=== PATIENT | male | born 1935 ===

== ENCOUNTER 2018-01-10 11:05 | Emergency (ER) | payer MEDICARE, MEDICAID ==
[2018-01-10 11:09] VITALS: BMI 24.4
[2018-01-10 12:51] LABS: BASO # 0.1 K/uL (0.0-0.2); BASO % 0.7 % (0.0-2.0); EOS # 0.1 K/uL (0.0-0.7); EOS % 1.7 % (0.0-4.0); HEMOGLOBIN 11.3 g/dL (12.0-18.0); LYMPH % 11.6 % (20.0-40.0); MEAN CELL VOLUME 85.6 fl (80.0-94.0); MEAN CORPUSCULAR HEMOGLOBIN 28.4 pg (27.0-31.0); MEAN CORPUSCULAR HGB CONC 33.2 g/dL (33.0-37.0); MEAN PLATELET VOLUME 9.2 fl (7.2-11.7); MONO # 0.7 K/uL (0.0-0.8); MONO % 8.4 % (0.0-10.0); NEUT # 6.5 K/uL (1.8-7.0); NEUT % 77.6 % (50.0-75.0); RBC 3.97 Mil/uL (4.40-5.90); RED CELL DISTRIBUTION WIDTH 14.5 % (11.5-14.5); WHITE BLOOD COUNT 8.3 K/uL (4.8-10.8)
--- NOTE | 2018-01-10 13:08 | ED PDOC ---
HPI: General Adult <Belkys Ribeiro - Last Filed: 01/11/18 09:50> History Per: Patient, Other ([facility] report) Additional Complaint(s): Pt. states today at 0430 he was sleeping a nurse came into his room which startled him causing him to roll out of bed. States that his bed rail on the R side was not up. States he fell down and struck his forehead. States he attempted get up on his own but slipped and fell down again but did not injure himself. Denies LOC, N/V, abdominal pain, chest pain, SOB, neck pain, extremity pain, back pain (contrary to triage note). <Jose Butcher - Last Filed: 01/12/18 12:03> Time Seen by Provider: 01/10/18 11:57 Chief Complaint (Nursing): Trauma Past Medical History Vital Signs: Last Vital Signs Temp 98.7 F 01/10/18 17:30 Pulse 68 01/10/18 17:30 Resp 18 01/10/18 17:30 BP 156/86 H 01/10/18 17:30 Pulse Ox 98 01/10/18 17:30 <Belkys Ribeiro - Last Filed: 01/11/18 09:50> Vital Signs: Last Vital Signs Temp 96.4 F L 01/10/18 11:10 Pulse 76 01/10/18 11:10 Resp 17 01/10/18 11:10 BP 160/80 H 01/10/18 11:10 Pulse Ox 99 01/10/18 11:10 - Medical History PMH: Dementia, HTN - Surgical History Surgical History: No Surg Hx - Family History Family History: States: No Known Family Hx <Jose Butcher - Last Filed: 01/12/18 12:03> - Allergies Allergies/Adverse Reactions: Allergies Allergy/AdvReac Type Severity Reaction Status Date / Time levofloxacin [From Levaquin] Allergy RASH Verified 01/10/18 11:16 Penicillins Allergy RASH Verified 01/10/18 11:16 Review of Systems ROS Statement: Except As Marked, All Systems Reviewed And Found Negative Neurological: Positive for: Headache <Jose Butcher - Last Filed: 01/12/18 12:03> Physical Exam - Reviewed Nursing Documentation Reviewed: Yes Vital Signs Reviewed: Yes - Physical Exam Appears: Positive for: Well, Non-toxic, No Acute Distress Head Exam: Positive for: ATRAUMATIC, NORMAL INSPECTION, NORMOCEPHALIC Skin: Positive for: Normal Color, Warm. Negative for: Rash Eye Exam: Positive for: EOMI, Normal appearance, PERRL ENT: Positive for: Normal ENT Inspection Neck: Positive for: Normal, Painless ROM Cardiovascular/Chest: Positive for: Regular Rate, Rhythm, Chest Non Tender Respiratory: Positive for: Normal Breath Sounds. Negative for: Respiratory Distress Gastrointestinal/Abdominal: Positive for: Normal Exam, Soft, Other (no ecchymosis). Negative for: Tenderness Back: Positive for: Normal Inspection. Negative for: L CVA Tenderness, R CVA Tenderness, Vertebral Tenderness Extremity: Positive for: Normal ROM Neurologic/Psych: Positive for: Alert, Oriented (x3). Negative for: Aphasia, Facial Droop <Jose Butcher - Last Filed: 01/12/18 12:03> - Laboratory Results Result Diagrams: 01/10/18 12:40 01/10/18 15:00 <Belkys Ribeiro - Last Filed: 01/11/18 09:50> - Laboratory Results Result Diagrams: 01/10/18 12:40 01/10/18 15:00 - ECG ECG: Positive for: Interpreted By Me ECG Rhythm: Positive for: Sinus Rhythm. Negative for: ST/T Changes Rate: 68 O2 Sat by Pulse Oximetry: 99 - Progress ED Course And Treament: Labs, CT head/cervical w/o contrast, CXR, EKG ordered. CT head/cervical w/o contrast: negative. On re-evaluation, pt. seen sitting up comfortably eating. Informed of results. <Jose Butcher - Last Filed: 01/12/18 12:03> Disposition <Belkys Ribeiro - Last Filed: 01/11/18 09:50> - Patient ED Disposition Is Patient to be Admitted: No - Disposition Disposition: Skilled Nursing Care Hospital Disposition Time: 15:52 <Jose Butcher - Last Filed: 01/12/18 12:03> - Clinical Impression Clinical Impression: Head injury, Fall - Disposition Condition: STABLE Additional Instructions: AZEB HART, thank you for letting us take care of you today. Your provider was Belkys Ribeiro MD and you were treated for FALL/HEAD PAIN. The emergency medical care you received today was directed at your acute symptoms. If you were prescribed any medication, please fill it and take as directed. It may take several days for your symptoms to resolve. Return to the Emergency Department if your symptoms worsen, do not improve, or if you have any other problems. Please contact your doctor or call one of the physicians/clinics you have been referred to that are listed on the Patient Visit Information form that is included in your discharge packet. Bring any paperwork you were given at discharge with you along with any medications you are taking to your follow up visit. Our treatment cannot replace ongoing medical care by a primary care provider outside of the emergency department. Thank you for allowing the [facility] team to be part of your care today. If you had an X-Ray or CT scan: A Radiologist will review the ED reading if any change in treatment is needed we will contact you. If you had a blood, urine, or wound culture: It will take several days for the results, if any change in treatment is needed we will contact you. If you had an STI test: It will take 48 hours for the results. Please call after 1 week if you have not heard back. Instructions: Closed Head Injury (DC) Forms: [employer] (Micronesian) Print Language: LUXEMBOURGISH Addendum Addendum: 01/11/18 09:49 Reviewed PA chart. Agree with assessment and plan. <Belkys Ribeiro - Last Filed: 01/11/18 09:50>
[2018-01-10 13:12] VITALS: PULSE 68
[2018-01-10 13:28] LABS: ALB/GLOB RATIO 1.2 (1.0-2.1); ALBUMIN 4.6 g/dL (3.5-5.0); ALT/SGPT 9 U/L (21-72); AST/SGOT 67 U/L (17-59); BLOOD UREA NITROGEN 31 mg/dl (9-20); CALCIUM 9.2 mg/dL (8.4-10.2); GFR NON-AFRICAN AMERICAN > 60
--- NOTE | 2018-01-10 14:36 | CT ---
Date of service: 01/10/2018 PROCEDURE: CT HEAD WITHOUT CONTRAST. HISTORY: trauma COMPARISON: None available. TECHNIQUE: Axial computed tomography images were obtained through the head/brain without intravenous contrast. Radiation dose: Total exam DLP = 932.7 mGy-cm. This CT exam was performed using one or more of the following dose reduction techniques: Automated exposure control, adjustment of the mA and/or kV according to patient size, and/or use of iterative reconstruction technique. FINDINGS: HEMORRHAGE: No intracranial hemorrhage. BRAIN: No mass effect or edema. Mild atrophy and moderate chronic microvascular white matter ischemic disease are noted. VENTRICLES: Unremarkable. No hydrocephalus. CALVARIUM: Unremarkable. PARANASAL SINUSES: Unremarkable as visualized. No significant inflammatory changes. MASTOID AIR CELLS: Unremarkable as visualized. No inflammatory changes. OTHER FINDINGS: None. IMPRESSION: No evidence of acute intracranial hemorrhage mass effect or midline shift. Atrophy and chronic microvascular white matter ischemic disease.
--- NOTE | 2018-01-10 15:34 | CT ---
Date of service: 01/10/2018 PROCEDURE: CT Cervical Spine without contrast HISTORY: trauma COMPARISON: No prior similar study available for comparison TECHNIQUE: Axial computed tomography images were obtained of the cervical spine without the use of intravenous contrast. Coronal and sagittal reformatted images were created and reviewed. Radiation dose: Total exam DLP = 358.6 mGy-cm. This CT exam was performed using one or more of the following dose reduction techniques: Automated exposure control, adjustment of the mA and/or kV according to patient size, and/or use of iterative reconstruction technique. FINDINGS: VERTEBRAE: No fracture. There is mild 3 millimeter anterior spondylolisthesis of C4 relative to C5 likely due to severe degenerative changes. No destructive bony lesion. DISCS/SPINAL CANAL/NEURAL FORAMINA: Moderate to severe narrowing of the intervertebral disc is space at C5-C6 and moderate narrowing of disc is space at C6-C7. Moderate to severe degenerative changes and multilevel small posterior osteophyte disc bulge complex noted associated with mild spinal stenosis. 2 millimeter anterior spondylolisthesis of C7 relative to T1 noted. PARASPINAL SOFT TISSUES: No evidence of hematoma or fluid collection in the paraspinal region. The thyroid gland is heterogeneous and enlarged. OTHER FINDINGS: There is partially image moderately to markedly distended esophagus noted. The upper airway is patent. IMPRESSION: No definite CT evidence of acute displaced fracture. Mild anterior spondylolisthesis of C4 relative to C5 and C7 relative to T1 noted likely due to severe degenerative and arthritic changes. Moderate to mildly severe multilevel endplate and disc degenerative changes. Partially imaged moderately to markedly distended esophagus noted. Correlate clinically for possible prior gastric pull-up surgery.
[2018-01-10 15:46] LABS: BLOOD UREA NITROGEN 28 mg/dl (9-20); CALCIUM 9.5 mg/dL (8.4-10.2); GFR NON-AFRICAN AMERICAN > 60
[2018-01-10 15:47] LABS: ALB/GLOB RATIO 1.2 (1.0-2.1); ALT/SGPT 26 U/L (21-72); AST/SGOT 25 U/L (17-59)
--- NOTE | 2018-01-10 16:55 | CARD ---
APPROVED REPORT Date of service: 01/10/2018 EKG Measurement Heart [id number] <Conclusion> Sinus rhythm with premature atrial complexes Otherwise normal ECG
[2018-01-10 17:31] VITALS: BP 156/86; RESP 18; TEMP 98.7
--- NOTE | 2018-01-10 17:50 | RAD ---
Date of service: 01/10/2018 HISTORY: fall COMPARISON: No prior. FINDINGS: LUNGS: No active pulmonary disease. Linear shaped lucency at the peripheral left chest likely represent skin fold. PLEURA: No significant pleural effusion identified, no pneumothorax apparent. CARDIOVASCULAR: Normal. OSSEOUS STRUCTURES: No significant abnormalities. VISUALIZED UPPER ABDOMEN: Normal. OTHER FINDINGS: None. IMPRESSION: Lucency in the peripheral left chest likely represent skin folds. No evidence of acute pulmonary disease.
[2018-01-12 12:03] VITALS: O2SAT 99
== END 2018-01-10 17:32 ==
LOC: H.ER 11:05
DX: S09.90XA Unspecified injury of head, initial encounter (principal); W06.XXXA Fall from bed, initial encounter; Y92.230 Patient room in hospital as the place of occurrence of the external cause; F03.90 Unspecified dementia, unspecified severity, without behavioral disturbance, psychotic disturbance, mood disturbance, and anxiety; I10 Essential (primary) hypertension; I49.1 Atrial premature depolarization

== ENCOUNTER 2018-05-12 07:31 | Inpatient (IN) | payer MEDICARE, MEDICAID ==
[2018-05-12 07:34] VITALS: BMI 25.1
[2018-05-12] MEDS ORDERED: Gentamicin 80 mg/2mL Inj. IVPB STA (08:14)
[2018-05-12] MEDS ORDERED: Sodium Chloride 0.9% 1,000 ML IV SCH (08:15)
[2018-05-12] MEDS ORDERED: Vancomycin 1 g Inj ONE (08:30)
--- NOTE | 2018-05-12 08:33 | ED PDOC ---
HPI: General Adult Time Seen by Provider: 05/12/18 07:48 Chief Complaint (Nursing): Fever Chief Complaint (Provider): Fever History Per: EMS History/Exam Limitations: other (patient is non-verbal ) Onset/Duration Of Symptoms: Hrs Current Symptoms Are (Timing): Still Present Additional Complaint(s): Chris Hickey is an 82 year old male with a past medical history of diet controlled diabetes, hypertension, dementia, and obstructive neuropathy who was brought to the ED by EMS from [facility] for evaluation of fever. Patient is non-verbal at baseline and chart review shows that patient had a temperature of 102 at 6 am and was given Tylenol. His oxygen saturation n on room air was 88-90 and patient was reported to appear more lethargic and congested. Of note, patient is allergic to Levaquin. PMD: Dr. Hernández Past Medical History Reviewed: Historical Data, Nursing Documentation, Vital Signs Vital Signs: Last Vital Signs Temp 98.8 F 05/12/18 07:35 Pulse 58 L 05/12/18 07:35 Resp 17 05/12/18 07:35 BP 91/41 L 05/12/18 07:35 Pulse Ox 98 05/12/18 07:40 - Medical History PMH: Dementia, Diabetes, HTN Other PMH: obstructive neuropathy - Surgical History Surgical History: No Surg Hx - Family History Family History: States: Unknown Family Hx - Social History Current smoker - smoking cessation education provided: No Alcohol: None Drugs: Denies - Home Medications Home Medications: Ambulatory Orders Medication Instructions Recorded Acetaminophen [Tylenol 325mg tab] 650 mg PO DAILY 05/12/18 Acetaminophen [Tylenol 325mg tab] 650 mg PO Q4 PRN 05/12/18 Acetaminophen [Tylenol 325mg tab] 650 mg PO Q6 PRN 05/12/18 Albuterol/Ipratropium [Duoneb 3 3 ml IH Q8 05/12/18 mg/0.5 mg (3 ml) UD] Alendronate [Fosamax] 70 mg PO FR 05/12/18 Azithromycin [Zithromax] 250 mg PO DAILY 05/12/18 Benzocaine/Menthol [Sore Throat 1 anette PO Q8 PRN 05/12/18 Lozenge] Bisacodyl [Dulcolax] 10 mg AL DAILY PRN 05/12/18 Calcium Carbonate [Oscal] 500 mg PO BID 05/12/18 Cholecalciferol [Vitamin D 1000 IU] 1,000 unit PO BID 05/12/18 Dextromethorphan HBr/Quinidine 1 cap PO DAILY 05/12/18 [Nuedexta 20-10 mg Capsule] Donepezil HCl [Aricept] 5 mg PO HS 05/12/18 Fluticasone Nasal [Flonase] 2 spray ASAD DAILY 05/12/18 Levocetirizine Dihydrochloride 5 mg PO DAILY 05/12/18 [Xyzal] Lisinopril [Zestril] 5 mg PO HS 05/12/18 Magnesium Hydroxide [Milk Of 30 ml PO HS PRN 05/12/18 Magnesia] Memantine [Namenda] 5 mg PO Q12 05/12/18 Multivitamin [Multi-Vitamin Daily] 1 tab PO DAILY 05/12/18 [id number] Ethyl Esters 1 GM 2 gm PO Q12 05/12/18 [Lovaza] Pantoprazole Sodium [Protonix] 40 mg PO DAILY 05/12/18 Peg 400/Hypromellose/Glycerin 2 drop EACHEYE Q6 05/12/18 [Visine Tears Drops] Sennosides [Senna] 8.6 mg PO HS 05/12/18 Tamsulosin [Flomax] 0.4 mg PO QPM 05/12/18 guaiFENesin [Robitussin] 10 ml PO Q6 PRN 05/12/18 - Allergies Allergies/Adverse Reactions: Allergies Allergy/AdvReac Type Severity Reaction Status Date / Time levofloxacin [From Levaquin] Allergy RASH Verified 05/12/18 07:39 Penicillins Allergy RASH Verified 05/12/18 07:39 Review of Systems ROS Statement: Except As Marked, All Systems Reviewed And Found Negative Constitutional: Positive for: Fever Physical Exam - Reviewed Nursing Documentation Reviewed: Yes Vital Signs Reviewed: Yes - Physical Exam Appears: Positive for: Non-toxic, No Acute Distress Head Exam: Positive for: ATRAUMATIC, NORMAL INSPECTION, NORMOCEPHALIC Skin: Positive for: Normal Color, Warm, DRY Eye Exam: Positive for: Normal appearance (Left eye is deviated laterally ). Negative for: Scleral icterus ENT: Positive for: Other (mucosa dry, dry lips, dry tongue ) Cardiovascular/Chest: Positive for: Regular Rate, Rhythm. Negative for: Murmur Respiratory: Positive for: Normal Breath Sounds (good air entry bilaterally ). Negative for: Wheezing Gastrointestinal/Abdominal: Positive for: Normal Exam, Soft. Negative for: Tenderness Extremity: Positive for: Normal ROM, Other (decubitus ulcer to lower extremity ). Negative for: Deformity, Swelling Neurologic/Psych: Negative for: Motor/Sensory Deficits - Laboratory Results Result Diagrams: 05/12/18 07:50 05/12/18 07:50 - ECG O2 Sat by Pulse Oximetry: 98 (RA) Pulse Ox Interpretation: Normal Medical Decision Making Medical Decision Making: Time: 8:21 Impression: fever, lethargy, r/o sepsis, pneumonia, UTI Plan: --VBG --EKG --CMP --Magnesium --Phosphorous --CBC --Coags --Chest x-ray --Glucose, POC --Gentamicin 310 IVPB --IV Fluids --Vancomycin 1 gm IVPB --Blood Culture --Urine Culture --Urinalysis ----- Scribe Attestation: Documented by Carlita Hewitt, acting as a scribe for Karen Bajwa MD. Provider Scribe Attestation: All medical record entries made by the Scribe were at my direction and personally dictated by me. I have reviewed the chart and agree that the record accurately reflects my personal performance of the history, physical exam, medical decision making, and the department course for this patient. I have also personally directed, reviewed, and agree with the discharge instructions and dis position. Disposition - Clinical Impression Clinical Impression: UTI (urinary tract infection), Sepsis syndrome - Patient ED Disposition Is Patient to be Admitted: Yes Doctor Will See Patient In The: Hospital - Disposition Disposition: Transfer of Care Disposition Time: 10:30 Condition: STABLE Instructions: Urinary Tract Infection, Adult (DC) Forms: [email or web address] (Serbian) - Pt Status Changed To: Hospital Disposition Of: Inpatient - Admit Certification Admit to Inpatient:: After my assessment, the patient will require hospitalization for at least two midnights. This is because of the severity of symptoms shown, intensity of services needed, and/or the medical risk in this patient being treated as an outpatient. - POA Present On Arrival: None
[2018-05-12 08:36] LABS: VENOUS BLOOD GAS BASE EXCESS 7.5 mmol/L (0.0-2.0); VENOUS BLOOD GAS PCO2 47 mmHg (40-60); VENOUS BLOOD GAS PO2 37 mm/Hg (30-55); VENOUS BLOOD PH 7.45 (7.32-7.43)
[2018-05-12 08:45] LABS: BASO % 0.1 % (0.0-2.0); HEMOGLOBIN 10.2 g/dL (12.0-18.0); LYMPH # 0.3 K/uL (1.0-4.3); LYMPH % 3.4 % (20.0-40.0); MEAN CELL VOLUME 83.5 fl (80.0-94.0); MEAN CORPUSCULAR HGB CONC 33.6 g/dL (33.0-37.0); MEAN PLATELET VOLUME 8.7 fl (7.2-11.7); MONO # 0.7 K/uL (0.0-0.8); MONO % 7.4 % (0.0-10.0); NEUT # 8.7 K/uL (1.8-7.0); NEUT % 89.1 % (50.0-75.0); PLATELET COUNT 220 K/uL (130-400); RBC 3.65 Mil/uL (4.40-5.90); RED CELL DISTRIBUTION WIDTH 15.3 % (11.5-14.5); WHITE BLOOD COUNT 9.8 K/uL (4.8-10.8)
[2018-05-12] MEDS ORDERED: GENTAMICIN IVPB ONE (08:45)
[2018-05-12] MEDS ORDERED: SODIUM CHLORIDE 0.9% IVPB ONE (08:45)
[2018-05-12 09:00] LABS: ALB/GLOB RATIO 1.2 (1.0-2.1); ALBUMIN 3.9 g/dL (3.5-5.0); ALT/SGPT 41 U/L (21-72); AST/SGOT 63 U/L (17-59); BLOOD UREA NITROGEN 33 mg/dl (9-20); CALCIUM 9.5 mg/dL (8.4-10.2); GFR NON-AFRICAN AMERICAN 53
[2018-05-12 09:20] LABS: INR 1.4; PROTHROMBIN TIME 15.7 Seconds (9.8-13.1)
[2018-05-12 09:23] LABS: PARTIAL THROMBOPLASTIN TIME 34.4 Seconds (25.6-37.1)
[2018-05-12 09:50] LABS: SQUAMOUS EPITHIAL 3 /hpf (0-5); URINE AMORPHOUS SEDIMENT FEW /ul (<OCC); URINE BACTERIA FEW (<OCC); URINE BILIRUBIN NEGATIVE (NEGATIVE); URINE BLOOD MODERATE (NEGATIVE); URINE CLARITY TURBID (Clear); URINE COLOR YELLOW (YELLOW); URINE GLUCOSE (UA) NEG (NEGATIVE); URINE LEUKOCYTE ESTERASE LARGE Leu/uL (Negative); URINE PROTEIN 100 mg/dL (NEGATIVE); URINE UROBILINOGEN 0.2-1.0 mg/dL (0.2-1.0); WBC CLUMPS MANY /hpf
--- NOTE | 2018-05-12 09:55 | CARD ---
APPROVED REPORT Date of service: 05/12/2018 EKG Measurement Heart [id number] <Conclusion> Sinus rhythm with marked sinus arrhythmia Prolonged QT Abnormal ECG
[2018-05-12 09:56] LABS: BANDS 5 % (0-2); LYMPHOCYTE 4 % (20-50); MONOCYTE 4 % (0-10); NEUTROPHIL 87 % (42-75); TOTAL CELLS COUNTED 100
[2018-05-12 09:57] LABS: PLATELET ESTIMATE NORMAL (NORMAL)
[2018-05-12 09:58] LABS: ANISOCYTOSIS SLIGHT; HYPOCHROMIC SLIGHT; OVALOCYTES SLIGHT; TEARDROP CELLS SLIGHT; TOXIC GRANULATION PRESENT
--- NOTE | 2018-05-12 10:34 | RAD ---
Date of service: 05/12/2018 HISTORY: Sepsis Patient COMPARISON: 01/10/2018 FINDINGS: LUNGS: No active pulmonary disease. PLEURA: No significant pleural effusion identified, no pneumothorax apparent. CARDIOVASCULAR: There is presence of aortic atherosclerotic calcification on x-ray. Probable top-normal heart size no pulmonary vascular congestion. OSSEOUS STRUCTURES: Thoracic spondylosis. Bilateral shoulder arthrosis. VISUALIZED UPPER ABDOMEN: Normal. OTHER FINDINGS: None. IMPRESSION: No acute cardiopulmonary pathology appreciated. Other findings as above.
[2018-05-12] MEDS ORDERED: guaiFENesin 100 mg/5 ml Syrup UD PO PRN (13:57)
--- NOTE | 2018-05-12 14:41 | PCM.RRT ---
- Constitutional Appears: Non-toxic Additional Comments: patient noted to be at his baseline as per nurse (nonverbal, bedbound) - Head Head Exam: ATRAUMATIC - Eyes Additional Comments: eyes were closed - Respiratory Exam Respiratory Exam: Clear to Ausculation Bilateral. absent: Rhonchi, Wheezes, Respiratory Distress - Cardiovascular Exam Cardiovascular Exam: REGULAR RHYTHM, +S1, +S2 - GI/Abdominal Exam GI & Abdominal Exam: Soft, Normal Bowel Sounds. absent: Guarding, Rigid, Tenderness - Neurological Exam Additional exam: patient nonverbal, bedbound - Extremities Exam Extremities Exam: absent: Calf Tenderness, Pedal Edema Plan - Assessment of Findings&Treatment Plan [employer] called: 1:19pm [employer] called by nurse bc of low spo2 [employer] response time: 1 minute [employer] called on 82 y/o M (nonverbal, bedbound) who's initial vitals on medsurg were noted to be spo2 82% while on non-rebreather and HR of 43bpm. Patient was sent from [facility] for evaluation of lethargy. Initial VS: BP-96/50, 02 sat of 100% p-86 bpm Repeat VS showed 02 sat of 100% on nonrebreather with p-84 bpm BP- 96/50 A/P: 82 y/o M (nonverbal, bedbound) who's initial vitals on medsurg were noted to be spo2 82% while on non-rebreather and HR of 43bpm. Patient was sent from [facility] for evaluation of lethargy & found to have UTI. -Patient noted to be at his baseline. -VS were repeated & error in machine was noted bc repeat 02 sat showed 100% on nonrebreather with p-84 bpm -UTI noted on UA in ED with large leukocytes. -Patient s/p 1 dose of vanco & genta
[2018-05-12] MEDS ORDERED: guaiFENesin 200 mg/10 ml Syrup UD PO PRN (14:45)
[2018-05-12] MEDS: Albuterol-Ipratrop 3 mg / 0.5 (3 ml) UD IH SCH (15:35)
--- NOTE | 2018-05-12 16:35 | CP.PCM.CON ---
History of Present Illness - History of Present Illness History of Present Illness: Infectious Diseae Consultation Note- ASked to see this patient at the request of for UTI HPI- History obtained from the nurse and FAMILY AND MARRIAGE COUNSELLOR and medical chart as patient is mostly nonverbal. Patient is a 82 year old male admitted from [place] for evaluation OF fever. he has PMH of dementia, HTN, diet controlled DM II admitted with fever and also found to be hypoxemic and now found to have positive UA as well. I;m asked to help with antibiotic management and evaluation of the fever. as per nurse pt. had VEGETABLE VENDOR earlier today because of lethargy and hypoxemia and is currently on FM for oxygen. He is lethargic but when his name is called he does respond and can follow simple commands. Review of Systems - Review of Systems Review of Systems: ROS- can't obtain as pt. does not answer questions Past Patient History - Past Social History Alcohol: None Drugs: Denies Home Situation {Lives}: Longterm - CARDIAC Hx Hypertension: Yes - NEUROLOGICAL Hx Dementia: Yes - ENDOCRINE/METABOLIC Hx Endocrine Disorders: Yes - MUSCULOSKELETAL/RHEUMATOLOGICAL Hx Back Pain: Yes - GENITOURINARY/GYNECOLOGICAL Hx Urinary Tract Infection: Yes Other/Comment: Obstructive uropathy - PSYCHIATRIC Hx Psychophysiologic Disorder: Yes Meds Allergies/Adverse Reactions: Allergies Allergy/AdvReac Type Severity Reaction Status Date / Time levofloxacin [From Levaquin] Allergy RASH Verified 05/12/18 07:39 Penicillins Allergy RASH Verified 05/12/18 07:39 - Medications Medications: Current Medications Acetaminophen (Tylenol 325mg Tab) 650 mg PO Q6 PRN PRN Reason: Fever >100.4 F Acetaminophen (Tylenol 325mg Tab) 650 mg PO Q4 PRN PRN Reason: Temp >101 Acetaminophen (Tylenol 325mg Tab) 650 mg PO Q6 PRN PRN Reason: Pain, Mild (1-3) Albuterol/Ipratropium (Duoneb 3 Mg/0.5 Mg (3 Ml) Ud) 3 ml IH RQ8 KEN Last Admin: 05/12/18 15:35 Dose: 3 ml Alendronate Sodium (Fosamax) 70 mg PO FR KEN Bisacodyl (Dulcolax) 10 mg AK DAILY PRN PRN Reason: No bowel movement after 3 days Calcium Carbonate (Oscal) 500 mg PO BID KEN Cholecalciferol (Vitamin D) 1,000 intlu PO BID KEN Donepezil HCl (Aricept) 5 mg PO HS [facility] Fluticasone Propionate (Flonase) 2 spr ASAD DAILY [facility] Guaifenesin (Robitussin) 200 mg PO Q6 PRN PRN Reason: Cough Sodium Chloride (Sodium Chloride 0.9%) 1,000 mls @ 90 mls/hr IV .Q11H7M [facility] Stop: 05/13/18 14:09 Gentamicin Sulfate 80 mg/ (Sodium Chloride) 102 mls @ 100 mls/hr IVPB Q24H KEN; Protocol Vancomycin HCl 500 mg/ Sodium (Chloride) 250 mls @ 250 mls/hr IVPB Q12H KEN; Protocol Lisinopril (Zestril) 5 mg PO HS [facility] Loratadine (Claritin) 10 mg PO DAILY KEN Memantine (Namenda) 5 mg PO Q12 [facility] Eyoht-3-Gnti Ethyl Esters (Lovaza) 2 gm PO Q12 [facility] Pantoprazole Sodium (Protonix Ec Tab) 40 mg PO DAILY [facility] Sennosides (Senokot Tab) 8.6 mg PO HS [facility] Tamsulosin HCl (Flomax) 0.4 mg PO QPM [facility] Physical Exam - Constitutional Appears: No Acute Distress - Head Exam Head Exam: ATRAUMATIC - Eye Exam Eye Exam: EOMI - ENT Exam Additional comments: dry oropharynx, has FM for oxygenation ( mouth breather) - Neck Exam Neck exam: Positive for: Full Rom - Respiratory Exam Additional comments: no wheezing no crackles slightly tachypneic - Cardiovascular Exam Cardiovascular Exam: RRR, +S1, +S2 - GI/Abdominal Exam GI & Abdominal Exam: Normal Bowel Sounds, Soft Additional comments: NT, ND - Extremities Exam Extremities exam: Positive for: normal inspection - Neurological Exam Additional comments: awake and follows some simple commands \has dementia, nonverbal Results - Vital Signs Recent Vital Signs: Last Vital Signs Temp 98.5 F 05/12/18 09:48 Pulse 65 05/12/18 15:36 Resp 16 05/12/18 09:48 BP 122/60 05/12/18 09:48 Pulse Ox 98 05/12/18 10:55 - Labs Result Diagrams: 05/12/18 07:50 05/12/18 07:50 Labs: Laboratory Results - last 24 hr 05/12/18 05/12/18 05/12/18 07:43 07:50 07:50 WBC 9.8 RBC 3.65 L Hgb 10.2 L Hct 30.4 L MCV 83.5 D MCH 28.0 MCHC 33.6 RDW 15.3 H Plt Count 220 MPV 8.7 Neut % (Auto) 89.1 H Lymph % (Auto) 3.4 L Mason % (Auto) 7.4 Eos % (Auto) 0.0 Baso % (Auto) 0.1 Neut # (Auto) 8.7 H Lymph # (Auto) 0.3 L Mason # (Auto) 0.7 Eos # (Auto) 0.0 Baso # (Auto) 0.0 Neutrophils % (Manual) 87 H Band Neutrophils % 5 H Lymphocytes % (Manual) 4 L Monocytes % (Manual) 4 Toxic Granulation Present Platelet Estimate Normal Hypochromasia (manual) Slight Anisocytosis (manual) Slight Tear Drop Cells Slight Ovalocytes Slight PT INR APTT pO2 VBG pH VBG pCO2 VBG HCO3 VBG Total CO2 VBG O2 Sat (Calc) VBG Base Excess VBG Potassium Glucose Lactate FiO2 Sodium 143 Potassium 3.5 L Chloride 98 Carbon Dioxide 29 Anion Gap 20 BUN 33 H Creatinine 1.3 Est GFR ( Amer) > 60 Est GFR (Non-Af Amer) 53 POC Glucose (mg/dL) 127 H Random Glucose 136 H Calcium 9.5 Phosphorus 4.5 Magnesium 1.8 Total Bilirubin 1.0 AST 63 H D ALT 41 Alkaline Phosphatase 71 Total Protein 7.2 Albumin 3.9 Globulin 3.3 Albumin/Globulin Ratio 1.2 Venous Blood Potassium Urine Color Urine Clarity Urine pH Ur Specific [place] Urine Protein Urine Glucose (UA) Urine Ketones Urine Blood Urine Nitrate Urine Bilirubin Urine Urobilinogen Ur Leukocyte Esterase Urine RBC (Auto) Urine WBC Clumps (Auto) Urine Microscopic WBC Ur Squamous Epith Cells Amorphous Sediment Urine Bacteria 05/12/18 05/12/18 05/12/18 07:50 08:20 08:40 WBC RBC Hgb Hct MCV MCH MCHC RDW Plt Count MPV Neut % (Auto) Lymph % (Auto) Mason % (Auto) Eos % (Auto) Baso % (Auto) Neut # (Auto) Lymph # (Auto) [place] # (Auto) Eos # (Auto) Baso # (Auto) Neutrophils % (Manual) Band Neutrophils % Lymphocytes % (Manual) Monocytes % (Manual) Toxic Granulation Platelet Estimate Hypochromasia (manual) Anisocytosis (manual) Tear Drop Cells Ovalocytes PT 15.7 H INR 1.4 APTT 34.4 pO2 37 VBG pH 7.45 H VBG pCO2 47 VBG HCO3 30.1 VBG Total CO2 34.1 H VBG O2 Sat (Calc) 74.7 H VBG Base Excess 7.5 H VBG Potassium 3.5 L Glucose 141 H Lactate 1.3 FiO2 21.0 Sodium 141.0 Potassium Chloride 105.0 Carbon Dioxide Anion Gap BUN Creatinine Est GFR ( Amer) Est GFR (Non-Af Amer) POC Glucose (mg/dL) Random Glucose Calcium Phosphorus Magnesium Total Bilirubin AST ALT Alkaline Phosphatase Total Protein Albumin Globulin Albumin/Globulin Ratio Venous Blood Potassium 3.5 L Urine Color Yellow Urine Clarity Turbid Urine pH 5.0 Ur Specific [place] 1.012 Urine Protein 100 Urine Glucose (UA) Neg Urine Ketones Trace Urine Blood Moderate Urine Nitrate Negative Urine Bilirubin Negative Urine Urobilinogen 0.2-1.0 Ur Leukocyte Esterase Large Urine RBC (Auto) 10 H Urine WBC Clumps (Auto) Many H Urine Microscopic WBC 180 H Ur Squamous Epith Cells 3 Amorphous Sediment Few H Urine Bacteria Few H 05/12/18 05/12/18 13:28 15:42 WBC RBC Hgb Hct MCV MCH MCHC RDW Plt Count MPV Neut % (Auto) Lymph % (Auto) Mason % (Auto) Eos % (Auto) Baso % (Auto) Neut # (Auto) Lymph # (Auto) Mason # (Auto) Eos # (Auto) Baso # (Auto) Neutrophils % (Manual) Band Neutrophils % Lymphocytes % (Manual) Monocytes % (Manual) Toxic Granulation Platelet Estimate Hypochromasia (manual) Anisocytosis (manual) Tear Drop Cells Ovalocytes PT INR APTT pO2 VBG pH VBG pCO2 VBG HCO3 VBG Total CO2 VBG O2 Sat (Calc) VBG Base Excess VBG Potassium Glucose Lactate FiO2 Sodium Potassium Chloride Carbon Dioxide Anion Gap BUN Creatinine Est GFR ( Amer) Est GFR (Non-Af Amer) POC Glucose (mg/dL) 154 H 131 H Random Glucose Calcium Phosphorus Magnesium Total Bilirubin AST ALT Alkaline Phosphatase Total Protein Albumin Globulin Albumin/Globulin Ratio Venous Blood Potassium Urine Color Urine Clarity Urine pH Ur Specific [place] Urine Protein Urine Glucose (UA) Urine Ketones Urine Blood Urine Nitrate Urine Bilirubin Urine Urobilinogen Ur Leukocyte Esterase Urine RBC (Auto) Urine WBC Clumps (Auto) Urine Microscopic WBC Ur Squamous Epith Cells Amorphous Sediment Urine Bacteria Laboratory Results - last 72 hr 05/12/18 05/12/18 05/12/18 07:43 07:50 07:50 WBC 9.8 RBC 3.65 L Hgb 10.2 L Hct 30.4 L MCV 83.5 D MCH 28.0 MCHC 33.6 RDW 15.3 H Plt Count 220 MPV 8.7 Neut % (Auto) 89.1 H Lymph % (Auto) 3.4 L Mason % (Auto) 7.4 Eos % (Auto) 0.0 Baso % (Auto) 0.1 Neut # (Auto) 8.7 H Lymph # (Auto) 0.3 L [place] # (Auto) 0.7 Eos # (Auto) 0.0 Baso # (Auto) 0.0 Neutrophils % (Manual) 87 H Band Neutrophils % 5 H Lymphocytes % (Manual) 4 L Monocytes % (Manual) 4 Toxic Granulation Present Platelet Estimate Normal Hypochromasia (manual) Slight Anisocytosis (manual) Slight Tear Drop Cells Slight Ovalocytes Slight PT INR APTT pO2 VBG pH VBG pCO2 VBG HCO3 VBG Total CO2 VBG O2 Sat (Calc) VBG Base Excess VBG Potassium Glucose Lactate FiO2 Sodium 143 Potassium 3.5 L Chloride 98 Carbon Dioxide 29 Anion Gap 20 BUN 33 H Creatinine 1.3 Est GFR ( Amer) > 60 Est GFR (Non-Af Amer) 53 POC Glucose (mg/dL) 127 H Random Glucose 136 H Calcium 9.5 Phosphorus 4.5 Magnesium 1.8 Total Bilirubin 1.0 AST 63 H D ALT 41 Alkaline Phosphatase 71 Total Protein 7.2 Albumin 3.9 Globulin 3.3 Albumin/Globulin Ratio 1.2 Venous Blood Potassium Urine Color Urine Clarity Urine pH Ur Specific [place] Urine Protein Urine Glucose (UA) Urine Ketones Urine Blood Urine Nitrate Urine Bilirubin Urine Urobilinogen Ur Leukocyte Esterase Urine RBC (Auto) Urine WBC Clumps (Auto) Urine Microscopic WBC Ur Squamous Epith Cells Amorphous Sediment Urine Bacteria 05/12/18 05/12/18 05/12/18 07:50 08:20 08:40 WBC RBC Hgb Hct MCV MCH MCHC RDW Plt Count MPV Neut % (Auto) Lymph % (Auto) Mason % (Auto) Eos % (Auto) Baso % (Auto) Neut # (Auto) Lymph # (Auto) Mason # (Auto) Eos # (Auto) Baso # (Auto) Neutrophils % (Manual) Band Neutrophils % Lymphocytes % (Manual) Monocytes % (Manual) Toxic Granulation Platelet Estimate Hypochromasia (manual) Anisocytosis (manual) Tear Drop Cells Ovalocytes PT 15.7 H INR 1.4 APTT 34.4 pO2 37 VBG pH 7.45 H VBG pCO2 47 VBG HCO3 30.1 VBG Total CO2 34.1 H VBG O2 Sat (Calc) 74.7 H VBG Base Excess 7.5 H VBG Potassium 3.5 L Glucose 141 H Lactate 1.3 FiO2 21.0 Sodium 141.0 Potassium Chloride 105.0 Carbon Dioxide Anion Gap BUN Creatinine Est GFR ( Amer) Est GFR (Non-Af Amer) POC Glucose (mg/dL) Random Glucose Calcium Phosphorus Magnesium Total Bilirubin AST ALT Alkaline Phosphatase Total Protein Albumin Globulin Albumin/Globulin Ratio Venous Blood Potassium 3.5 L Urine Color Yellow Urine Clarity Turbid Urine pH 5.0 Ur Specific [place] 1.012 Urine Protein 100 Urine Glucose (UA) Neg Urine Ketones Trace Urine Blood Moderate Urine Nitrate Negative Urine Bilirubin Negative Urine Urobilinogen 0.2-1.0 Ur Leukocyte Esterase Large Urine RBC (Auto) 10 H Urine WBC Clumps (Auto) Many H Urine Microscopic WBC 180 H Ur Squamous Epith Cells 3 Amorphous Sediment Few H Urine Bacteria Few H 05/12/18 05/12/18 13:28 15:42 WBC RBC Hgb Hct MCV MCH MCHC RDW Plt Count MPV Neut % (Auto) Lymph % (Auto) Mason % (Auto) Eos % (Auto) Baso % (Auto) Neut # (Auto) Lymph # (Auto) Mason # (Auto) Eos # (Auto) Baso # (Auto) Neutrophils % (Manual) Band Neutrophils % Lymphocytes % (Manual) Monocytes % (Manual) Toxic Granulation Platelet Estimate Hypochromasia (manual) Anisocytosis (manual) Tear Drop Cells Ovalocytes PT INR APTT pO2 VBG pH VBG pCO2 VBG HCO3 VBG Total CO2 VBG O2 Sat (Calc) VBG Base Excess VBG Potassium Glucose Lactate FiO2 Sodium Potassium Chloride Carbon Dioxide Anion Gap BUN Creatinine Est GFR ( Amer) Est GFR (Non-Af Amer) POC Glucose (mg/dL) 154 H 131 H Random Glucose Calcium Phosphorus Magnesium Total Bilirubin AST ALT Alkaline Phosphatase Total Protein Albumin Globulin Albumin/Globulin Ratio Venous Blood Potassium Urine Color Urine Clarity Urine pH Ur Specific [place] Urine Protein Urine Glucose (UA) Urine Ketones Urine Blood Urine Nitrate Urine Bilirubin Urine Urobilinogen Ur Leukocyte Esterase Urine RBC (Auto) Urine WBC Clumps (Auto) Urine Microscopic WBC Ur Squamous Epith Cells Amorphous Sediment Urine Bacteria Accession No. : [id number] Patient Name / ID : TANNER BOWIE / [id number] Exam Date : 05/12/2018 08:14:20 ( Approved ) Study Comment : Sex / Age : M / [id number] Creator : Suly Fletcher Dictator : Suly Fletcher Register Of Deeds : Ultrasound Technologist Sonographer : Suly Fletcher Approver2 : Report Date : 05/12/2018 10:30:38 My Comment : Date of service: 05/12/2018 HISTORY: Sepsis Patient COMPARISON: 01/10/2018 FINDINGS: LUNGS: No active pulmonary disease. PLEURA: No significant pleural effusion identified, no pneumothorax apparent. CARDIOVASCULAR: There is presence of aortic atherosclerotic calcification on x-ray. Probable top-normal heart size no pulmonary vascular congestion. OSSEOUS STRUCTURES: Thoracic spondylosis. Bilateral shoulder arthrosis. VISUALIZED UPPER ABDOMEN: Normal. OTHER FINDINGS: None. IMPRESSION: No acute cardiopulmonary pathology appreciated. Other findings as above. Assessment & Plan (1) UTI (urinary tract infection) Status: Acute (2) Sepsis syndrome Status: Acute (3) Fever Status: Acute (4) Hypoxemia Status: Acute - Assessment and Plan (Free Text) Assessment: A/P- 82 year old [place] resident male with dementia, admitted with fever. etiology of fever could be multifactorial. cxr- negative per report but pt. is hypoxemic. UA- POs LE, neg Nitrates normal total wbc biut has mild bandemia. PLan- check sputum cx. check urine cx. check blood cx x 2. check LE dopplers r/o DVT. may need chest CT for further evaluation of the hypoxemia and OR r/o PE with CTA. In the Interim advise to place on broad spectrum IV abx to cover for both UTI and HAP. monitor aspiration precautions. All labs and imaging and chart notes reviewed. Thank you for allowing me to take part in the care of this patient.
[2018-05-12] MEDS ORDERED: Gentamicin 80mg/50ml NS 80 MG/50 ML BAG IVPB SCH (17:00)
[2018-05-12] MEDS: Cholecalciferol 1,000 INTLU TAB PO SCH ×2 (17:20→17:27)
[2018-05-12] MEDS ORDERED: Meropenem 500 MG in Sodium Chloride 0.9% 100 ML IVPB SCH (18:30)
[2018-05-12] MEDS: Sodium Chloride 0.9% 1,000 ML IV SCH (19:01)
[2018-05-12] MEDS: Omega-3-Acid Ethyl Esters 1 GM Cap PO SCH (22:55)
[2018-05-13] MEDS: Albuterol-Ipratrop 3 mg / 0.5 (3 ml) UD IH SCH ×3 (00:22→15:15)
[2018-05-13] MEDS: Sodium Chloride 0.9% 1,000 ML IV SCH ×3 (01:25→13:47)
[2018-05-13] MEDS: Meropenem 500 MG in Sodium Chloride 0.9% 100 ML IVPB SCH ×3 (06:09→22:53)
[2018-05-13 06:38] LABS: BASO % 0.2 % (0.0-2.0); EOS % 0.1 % (0.0-4.0); HEMOGLOBIN 10.8 g/dL (12.0-18.0); LYMPH # 0.5 K/uL (1.0-4.3); LYMPH % 5.8 % (20.0-40.0); MEAN CORPUSCULAR HEMOGLOBIN 27.8 pg (27.0-31.0); MEAN CORPUSCULAR HGB CONC 33.1 g/dL (33.0-37.0); MEAN PLATELET VOLUME 8.3 fl (7.2-11.7); MONO # 0.5 K/uL (0.0-0.8); MONO % 5.9 % (0.0-10.0); NEUT # 8.1 K/uL (1.8-7.0); NRBC % 0.1 % (0.0-0.0); RBC 3.89 Mil/uL (4.40-5.90); RED CELL DISTRIBUTION WIDTH 15.1 % (11.5-14.5); WHITE BLOOD COUNT 9.2 K/uL (4.8-10.8)
[2018-05-13 06:50] LABS: ALB/GLOB RATIO 1.1 (1.0-2.1); ALBUMIN 3.5 g/dL (3.5-5.0); ALT/SGPT 40 U/L (21-72); AST/SGOT 43 U/L (17-59); BLOOD UREA NITROGEN 32 mg/dl (9-20); CALCIUM 8.8 mg/dL (8.4-10.2); GFR NON-AFRICAN AMERICAN > 60
[2018-05-13] MEDS: Pantoprazole 40 mg EC Tab PO SCH (09:29)
[2018-05-13] MEDS: Cholecalciferol 1,000 INTLU TAB PO SCH ×2 (09:29→17:04)
[2018-05-13] MEDS: Omega-3-Acid Ethyl Esters 1 GM Cap PO SCH ×2 (09:29→21:00)
--- NOTE | 2018-05-13 12:36 | US ---
Date of service: 05/12/2018 PROCEDURE: Bilateral lower extremity venous duplex Doppler. HISTORY: fever,hypoxemia COMPARISON: None available. TECHNIQUE: Bilateral common femoral, superficial femoral, popliteal and posterior tibial veins were evaluated. Flow was assessed with color Doppler, compressibility, assessment of phasic flow and augmentation response. FINDINGS: COMMON FEMORAL VEIN: Right CFV: Unremarkable. Left CFV: Unremarkable. SUPERFICIAL FEMORAL VEIN: Right SFV: Unremarkable. Left SFV: Unremarkable. POPLITEAL VEIN: Right Popliteal: Unremarkable. Left Popliteal: Unremarkable. POSTERIOR TIBIAL VEIN: Right PTV: Unremarkable. Left PTV: Unremarkable. OTHER FINDINGS: None. IMPRESSION: No evidence of deep venous thrombosis.
--- NOTE | 2018-05-13 12:39 | US ---
Date of service: 05/12/2018 PROCEDURE: Ultrasound pelvis HISTORY: Evaluate prostate COMPARISON: Not available TECHNIQUE: Transabdominal FINDINGS: The urinary bladder when distended measures 213.2 mL. The wall is thickened, up to approximately 4 mm. There is dependent debris within the bladder lumen. There is no intraluminal mass appreciated. Ureteral jets were not evident. Postvoid residual volume in the urinary bladder is 32.9 cc. The prostate measures 6.2 x 4.3 x 5.6 cm equal to a volume of 79 mL. Within the prostate, there is a collection of fluid and dependent debris measuring approximately 3 cm in diameter with a fluid/fluid level. Uncertain significance. Possible post biopsy hematoma. Correlate with history. IMPRESSION: 32.9 cc postvoid residual. Thickened bladder wall. Intraluminal debris. Enlarged prostate. Collection of fluid and debris within the prostate centrally, of uncertain significance. Correlate with history.
--- NOTE | 2018-05-13 13:47 | CP.PCM.HP ---
History of Present Illness - History of Present Illness History of Present Illness: CC: High Fever. 82 y/o M, resident at [facility], PMHx: Dementia, HTN, DMII, brought via EMS to [facility] on 05/12/18 to evaluated for high fever of 102.6 while in the NH, about 5:30 pm on DOA, associated to cough, non productive, non bloody. Pt had Tylenol in this facility with no relief. WRAPPER SELECTOR was called yesterday due to increased lethargicness, O2 sat 85%, Pt was placed in NRM with FIO2 50%. O2 Sat reading 100%. Worsening symptoms: Pt found Hypoxemic, lethargic, unable to follow commands, found with abnormal U/A showing Bacteria. Aggravated factor: changing positions/movements. As per senior care, no n/v/d, abdominal pain, CP, syncope, sick contact. CXR: No cardiopulmonary disease. EKG: Sinus rhythm with sinus arrhythmia . Pelvis U-S: Intraluminal Debris, enlarged Prostate. Thickening bladder wall. Ext U-S: No DVT. Present on Admission - Present on Admission Any Indicators Present on Admission: No Review of Systems - Review of Systems Systems not reviewed;Unavailable: Acuity of Condition, Dementia, Altered Mental Status Past Patient History - Past Medical History & Family History Past Medical History?: Yes Pertinent Family History: Unknown - Past Social History Alcohol: None Drugs: Denies Home Situation {Lives}: Prison - CARDIAC Hx Cardiac Disorders: Yes Hx Hypertension: Yes - PULMONARY Hx Respiratory Disorders: No - NEUROLOGICAL Hx Neurological Disorder: Yes Hx Dementia: Yes - HEENT Hx HEENT Problems: No - RENAL Hx Dialysis: No - ENDOCRINE/METABOLIC Hx Endocrine Disorders: Yes Hx Diabetes Mellitus Type 2: Yes - HEMATOLOGICAL/ONCOLOGICAL Hx Blood Disorders: No - INTEGUMENTARY Hx Dermatological Problems: No - MUSCULOSKELETAL/RHEUMATOLOGICAL Hx Musculoskeletal Disorders: Yes Hx Arthritis: Yes Hx Back Pain: Yes - GASTROINTESTINAL Hx Gastrointestinal Disorders: No - GENITOURINARY/GYNECOLOGICAL Hx Genitourinary Disorders: Yes Hx Incontinence: Yes Hx Prostate Problems: Yes Hx Urinary Tract Infection: Yes Other/Comment: Obstructive uropathy - PSYCHIATRIC Hx Psychophysiologic Disorder: Yes Hx Anxiety: Yes - ANESTHESIA Hx Anesthesia: No Meds Allergies/Adverse Reactions: Allergies Allergy/AdvReac Type Severity Reaction Status Date / Time levofloxacin [From Levaquin] Allergy RASH Verified 05/12/18 07:39 Penicillins Allergy RASH Verified 05/12/18 07:39 Physical Exam - Constitutional Appears: No Acute Distress, Chronically Ill - Head Exam Head Exam: NORMAL INSPECTION - Eye Exam Additional comments: L eye deviated laterally. - ENT Exam Additional comments: NRM 50%. Dry Oropharynx - Neck Exam Neck exam: Positive for: Normal Inspection - Respiratory Exam Respiratory Exam: Decreased Breath Sounds, Rhonchi - Cardiovascular Exam Cardiovascular Exam: REGULAR RHYTHM - GI/Abdominal Exam GI & Abdominal Exam: Normal Bowel Sounds, Soft - Extremities Exam Additional comments: L knee tenderness - Back Exam Back exam: tenderness - Neurological Exam Additional comments: Awake, incomprehensible sounds, generalized weakness. - Psychiatric Exam Additional comments: mumbling words - Skin Skin Exam: Warm Results - Vital Signs Recent Vital Signs: Last Vital Signs Temp 97.1 F L 05/13/18 09:00 Pulse 72 05/13/18 09:00 Resp 20 05/13/18 09:00 BP 168/83 H 05/13/18 09:00 Pulse Ox 100 05/13/18 09:00 don Monteiro - Labs Result Diagrams: 05/14/18 15:05 05/14/18 15:05 Labs: Laboratory Results - last 24 hr 05/12/18 05/12/18 05/12/18 15:42 21:20 22:29 WBC RBC Hgb Hct MCV MCH MCHC RDW Plt Count MPV Neut % (Auto) Lymph % (Auto) [place] % (Auto) Eos % (Auto) Baso % (Auto) Neut # (Auto) Lymph # (Auto) [place] # (Auto) Eos # (Auto) Baso # (Auto) Sodium Potassium Chloride Carbon Dioxide Anion Gap BUN Creatinine Est GFR ( Amer) Est GFR (Non-Af Amer) POC Glucose (mg/dL) 131 H 114 H Random Glucose Calcium Total Bilirubin AST ALT Alkaline Phosphatase Total Protein Albumin Globulin Albumin/Globulin Ratio Prostate Specific Ag Thyroxine (T4) TSH 3rd Generation Mycoplasma pneumon IgM Negative 05/13/18 05/13/18 05/13/18 05:24 06:00 06:00 WBC 9.2 RBC 3.89 L Hgb 10.8 L Hct 32.7 L MCV 84.0 MCH 27.8 MCHC 33.1 RDW 15.1 H Plt Count 232 MPV 8.3 Neut % (Auto) 88.0 H Lymph % (Auto) 5.8 L [place] % (Auto) 5.9 Eos % (Auto) 0.1 Baso % (Auto) 0.2 Neut # (Auto) 8.1 H Lymph # (Auto) 0.5 L [place] # (Auto) 0.5 Eos # (Auto) 0.0 Baso # (Auto) 0.0 Sodium 145 Potassium 3.8 Chloride 103 Carbon Dioxide 28 Anion Gap 18 BUN 32 H Creatinine 0.9 Est GFR ( Amer) > 60 Est GFR (Non-Af Amer) > 60 POC Glucose (mg/dL) 88 Random Glucose 89 Calcium 8.8 Total Bilirubin 0.5 AST 43 ALT 40 Alkaline Phosphatase 64 Total Protein 6.8 Albumin 3.5 Globulin 3.3 Albumin/Globulin Ratio 1.1 Prostate Specific Ag 20.1 H Thyroxine (T4) 6.49 TSH 3rd Generation 0.14 L Mycoplasma pneumon IgM 05/13/18 10:52 WBC RBC Hgb Hct MCV MCH MCHC RDW Plt Count MPV Neut % (Auto) Lymph % (Auto) [place] % (Auto) Eos % (Auto) Baso % (Auto) Neut # (Auto) Lymph # (Auto) [place] # (Auto) Eos # (Auto) Baso # (Auto) Sodium Potassium Chloride Carbon Dioxide Anion Gap BUN Creatinine Est GFR ( Amer) Est GFR (Non-Af Amer) POC Glucose (mg/dL) 167 H Random Glucose Calcium Total Bilirubin AST ALT Alkaline Phosphatase Total Protein Albumin Globulin Albumin/Globulin Ratio Prostate Specific Ag Thyroxine (T4) TSH 3rd Generation Mycoplasma pneumon IgM reviewed J.P. - EKG Data EKG comments: reviewed J.P. - Imaging and Cardiology Venous US Status: Report reviewed by me (J.P.) Chest x-ray Status: Report reviewed by me (J.P.) Pelvis U-S Status: Report reviewed by me Assessment & Plan (1) UTI (urinary tract infection) Status: Acute Priority: High (2) Fever Status: Resolved Priority: High (3) Sepsis syndrome Status: Acute Priority: High (4) Hypoxemia Status: Acute Priority: High (5) Dementia Status: Chronic Priority: High (6) HTN (hypertension) Status: Chronic Priority: High (7) DMII (diabetes mellitus, type 2) Status: Chronic Priority: Medium Comment: Controlled with diet. - Assessment and Plan (Free Text) Plan: F/U Blood C-S, Sputum C-S, U C-S, continue O2 support, Merren, Kyawo, Claritin, Duoneb, Robitussin, Calcium, Namenda, Aricept and rest of Tx. ID consult appreciated. Urology consult. - Date & Time Date: 05/13/18 Time: 13:00
--- NOTE | 2018-05-13 14:34 | CP.PCM.PN ---
Subjective - Date & Time of Evaluation Date of Evaluation: 05/13/18 Time of Evaluation: 12:00 - Subjective Subjective: ID Note- Pt. seen and examined today. pt. looks much better and breathing on Room Air. denies any complaints today. Objective - Vital Signs/Intake and Output Vital Signs (last 24 hours): Temp Pulse Resp BP Pulse Ox 97.1 F L 72 20 168/83 H 100 05/13/18 09:00 05/13/18 09:00 05/13/18 09:00 05/13/18 09:00 05/13/18 09:00 - Medications Medications: Current Medications Acetaminophen (Tylenol 325mg Tab) 650 mg PO Q6 PRN PRN Reason: Fever >100.4 F Acetaminophen (Tylenol 325mg Tab) 650 mg PO Q4 PRN PRN Reason: Temp >101 Acetaminophen (Tylenol 325mg Tab) 650 mg PO Q6 PRN PRN Reason: Pain, Mild (1-3) Albuterol/Ipratropium (Duoneb 3 Mg/0.5 Mg (3 Ml) Ud) 3 ml IH RQ8 [facility] Last Admin: 05/13/18 07:08 Dose: 3 ml Alendronate Sodium (Fosamax) 70 mg PO FR KEN Bisacodyl (Dulcolax) 10 mg KS DAILY PRN PRN Reason: No bowel movement after 3 days Calcium Carbonate (Oscal) 500 mg PO BID [facility] Last Admin: 05/13/18 09:29 Dose: 500 mg Cholecalciferol (Vitamin D) 1,000 intlu PO BID [facility] Last Admin: 05/13/18 09:29 Dose: 1,000 intlu Donepezil HCl (Aricept) 5 mg PO HS [facility] Last Admin: 05/12/18 22:55 Dose: Not Given Fluticasone Propionate (Flonase) 2 spr ASAD DAILY [facility] Last Admin: 05/13/18 09:28 Dose: 2 spr Guaifenesin (Robitussin) 200 mg PO Q6 PRN PRN Reason: Cough Vancomycin HCl 500 mg/ Sodium (Chloride) 100 mls @ 100 mls/hr IVPB Q12H [facility]; Protocol Last Admin: 05/13/18 04:29 Dose: 100 mls/hr Meropenem 500 mg/ Sodium (Chloride) 100 mls @ 100 mls/hr IVPB Q8@0600,1400,2200 [facility]; Protocol Last Admin: 05/13/18 13:44 Dose: 100 mls/hr Lisinopril (Zestril) [address] [facility] Last Admin: 05/12/18 22:55 Dose: Not Given Loratadine (Claritin) 10 mg PO DAILY [facility] Last Admin: 05/13/18 09:29 Dose: 10 mg Memantine (Namenda) 5 mg PO Q12 [facility] Last Admin: 05/13/18 09:30 Dose: 5 mg [id number] Ethyl Esters (Lovaza) 2 gm PO Q12 [facility] Last Admin: 05/13/18 09:29 Dose: 2 gm Pantoprazole Sodium (Protonix Ec Tab) 40 mg PO DAILY [facility] Last Admin: 05/13/18 09:29 Dose: 40 mg Sennosides (Senokot Tab) 8.[address] [facility] Last Admin: 05/12/18 22:55 Dose: Not Given Tamsulosin HCl (Flomax) 0.4 mg PO QPM [facility] Last Admin: 05/12/18 17:59 Dose: Not Given - Labs Labs: - Additional Findings Additional findings: - Constitutional Appears: No Acute Distress - Head Exam Head Exam: ATRAUMATIC - Eye Exam Eye Exam: EOMI - ENT Exam Additional comments: dry oropharynx - Neck Exam Neck exam: Positive for: Full Rom - Respiratory Exam Additional comments: no wheezing no crackles much better aeration today - Cardiovascular Exam Cardiovascular Exam: RRR, +S1, +S2 - GI/Abdominal Exam GI & Abdominal Exam: Normal Bowel Sounds, Soft Additional comments: NT, ND - Extremities Exam Extremities exam: Positive for: normal inspection - Neurological Exam Additional comments: awake and follows some simple commands Laboratory Results - last 72 hr 05/12/18 05/12/18 05/12/18 07:43 07:50 07:50 WBC 9.8 RBC 3.65 L Hgb 10.2 L Hct 30.4 L MCV 83.5 D MCH 28.0 MCHC 33.6 RDW 15.3 H Plt Count 220 MPV 8.7 Neut % (Auto) 89.1 H Lymph % (Auto) 3.4 L Adams % (Auto) 7.4 Eos % (Auto) 0.0 Baso % (Auto) 0.1 Neut # (Auto) 8.7 H Lymph # (Auto) 0.3 L Adams # (Auto) 0.7 Eos # (Auto) 0.0 Baso # (Auto) 0.0 Neutrophils % (Manual) 87 H Band Neutrophils % 5 H Lymphocytes % (Manual) 4 L Monocytes % (Manual) 4 Toxic Granulation Present Platelet Estimate Normal Hypochromasia (manual) Slight Anisocytosis (manual) Slight Tear Drop Cells Slight Ovalocytes Slight PT INR APTT pO2 VBG pH VBG pCO2 VBG HCO3 VBG Total CO2 VBG O2 Sat (Calc) VBG Base Excess VBG Potassium Glucose Lactate FiO2 Sodium 143 Potassium 3.5 L Chloride 98 Carbon Dioxide 29 Anion Gap 20 BUN 33 H Creatinine 1.3 Est GFR ( Amer) > 60 Est GFR (Non-Af Amer) 53 POC Glucose (mg/dL) 127 H Random Glucose 136 H Calcium 9.5 Phosphorus 4.5 Magnesium 1.8 Total Bilirubin 1.0 AST 63 H D ALT 41 Alkaline Phosphatase 71 Total Protein 7.2 Albumin 3.9 Globulin 3.3 Albumin/Globulin Ratio 1.2 Prostate Specific Ag Thyroxine (T4) TSH 3rd Generation Venous Blood Potassium Urine Color Urine Clarity Urine pH Ur Specific [place] Urine Protein Urine Glucose (UA) Urine Ketones Urine Blood Urine Nitrate Urine Bilirubin Urine Urobilinogen Ur Leukocyte Esterase Urine RBC (Auto) Urine WBC Clumps (Auto) Urine Microscopic WBC Ur Squamous Epith Cells Amorphous Sediment Urine Bacteria Mycoplasma pneumon IgM 05/12/18 05/12/18 05/12/18 07:50 08:20 08:40 WBC RBC Hgb Hct MCV MCH MCHC RDW Plt Count MPV Neut % (Auto) Lymph % (Auto) Adams % (Auto) Eos % (Auto) Baso % (Auto) Neut # (Auto) Lymph # (Auto) Adams # (Auto) Eos # (Auto) Baso # (Auto) Neutrophils % (Manual) Band Neutrophils % Lymphocytes % (Manual) Monocytes % (Manual) Toxic Granulation Platelet Estimate Hypochromasia (manual) Anisocytosis (manual) Tear Drop Cells Ovalocytes PT 15.7 H INR 1.4 APTT 34.4 pO2 37 VBG pH 7.45 H VBG pCO2 47 VBG HCO3 30.1 VBG Total CO2 34.1 H VBG O2 Sat (Calc) 74.7 H VBG Base Excess 7.5 H VBG Potassium 3.5 L Glucose 141 H Lactate 1.3 FiO2 21.0 Sodium 141.0 Potassium Chloride 105.0 Carbon Dioxide Anion Gap BUN Creatinine Est GFR ( Amer) Est GFR (Non-Af Amer) POC Glucose (mg/dL) Random Glucose Calcium Phosphorus Magnesium Total Bilirubin AST ALT Alkaline Phosphatase Total Protein Albumin Globulin Albumin/Globulin Ratio Prostate Specific Ag Thyroxine (T4) TSH 3rd Generation Venous Blood Potassium 3.5 L Urine Color Yellow Urine Clarity Turbid Urine pH 5.0 Ur Specific [place] 1.012 Urine Protein 100 Urine Glucose (UA) Neg Urine Ketones Trace Urine Blood Moderate Urine Nitrate Negative Urine Bilirubin Negative Urine Urobilinogen 0.2-1.0 Ur Leukocyte Esterase Large Urine RBC (Auto) 10 H Urine WBC Clumps (Auto) Many H Urine Microscopic WBC 180 H Ur Squamous Epith Cells 3 Amorphous Sediment Few H Urine Bacteria Few H Mycoplasma pneumon IgM 05/12/18 05/12/18 05/12/18 13:28 15:42 21:20 WBC RBC Hgb Hct MCV MCH MCHC RDW Plt Count MPV Neut % (Auto) Lymph % (Auto) Adams % (Auto) Eos % (Auto) Baso % (Auto) Neut # (Auto) Lymph # (Auto) Adams # (Auto) Eos # (Auto) Baso # (Auto) Neutrophils % (Manual) Band Neutrophils % Lymphocytes % (Manual) Monocytes % (Manual) Toxic Granulation Platelet Estimate Hypochromasia (manual) Anisocytosis (manual) Tear Drop Cells Ovalocytes PT INR APTT pO2 VBG pH VBG pCO2 VBG HCO3 VBG Total CO2 VBG O2 Sat (Calc) VBG Base Excess VBG Potassium Glucose Lactate FiO2 Sodium Potassium Chloride Carbon Dioxide Anion Gap BUN Creatinine Est GFR ( Amer) Est GFR (Non-Af Amer) POC Glucose (mg/dL) 154 H 131 H Random Glucose Calcium Phosphorus Magnesium Total Bilirubin AST ALT Alkaline Phosphatase Total Protein Albumin Globulin Albumin/Globulin Ratio Prostate Specific Ag Thyroxine (T4) TSH 3rd Generation Venous Blood Potassium Urine Color Urine Clarity Urine pH Ur Specific [place] Urine Protein Urine Glucose (UA) Urine Ketones Urine Blood Urine Nitrate Urine Bilirubin Urine Urobilinogen Ur Leukocyte Esterase Urine RBC (Auto) Urine WBC Clumps (Auto) Urine Microscopic WBC Ur Squamous Epith Cells Amorphous Sediment Urine Bacteria Mycoplasma pneumon IgM Negative 05/12/18 05/13/18 05/13/18 22:29 05:24 06:00 WBC 9.2 RBC 3.89 L Hgb 10.8 L Hct 32.7 L MCV 84.0 MCH 27.8 MCHC 33.1 RDW 15.1 H Plt Count 232 MPV 8.3 Neut % (Auto) 88.0 H Lymph % (Auto) 5.8 L Adams % (Auto) 5.9 Eos % (Auto) 0.1 Baso % (Auto) 0.2 Neut # (Auto) 8.1 H Lymph # (Auto) 0.5 L Adams # (Auto) 0.5 Eos # (Auto) 0.0 Baso # (Auto) 0.0 Neutrophils % (Manual) Band Neutrophils % Lymphocytes % (Manual) Monocytes % (Manual) Toxic Granulation Platelet Estimate Hypochromasia (manual) Anisocytosis (manual) Tear Drop Cells Ovalocytes PT INR APTT pO2 VBG pH VBG pCO2 VBG HCO3 VBG Total CO2 VBG O2 Sat (Calc) VBG Base Excess VBG Potassium Glucose Lactate FiO2 Sodium Potassium Chloride Carbon Dioxide Anion Gap BUN Creatinine Est GFR ( Amer) Est GFR (Non-Af Amer) POC Glucose (mg/dL) 114 H 88 Random Glucose Calcium Phosphorus Magnesium Total Bilirubin AST ALT Alkaline Phosphatase Total Protein Albumin Globulin Albumin/Globulin Ratio Prostate Specific Ag Thyroxine (T4) TSH 3rd Generation Venous Blood Potassium Urine Color Urine Clarity Urine pH Ur Specific [place] Urine Protein Urine Glucose (UA) Urine Ketones Urine Blood Urine Nitrate Urine Bilirubin Urine Urobilinogen Ur Leukocyte Esterase Urine RBC (Auto) Urine WBC Clumps (Auto) Urine Microscopic WBC Ur Squamous Epith Cells Amorphous Sediment Urine Bacteria Mycoplasma pneumon IgM 05/13/18 05/13/18 06:00 10:52 WBC RBC Hgb Hct MCV MCH MCHC RDW Plt Count MPV Neut % (Auto) Lymph % (Auto) Adams % (Auto) Eos % (Auto) Baso % (Auto) Neut # (Auto) Lymph # (Auto) Adams # (Auto) Eos # (Auto) Baso # (Auto) Neutrophils % (Manual) Band Neutrophils % Lymphocytes % (Manual) Monocytes % (Manual) Toxic Granulation Platelet Estimate Hypochromasia (manual) Anisocytosis (manual) Tear Drop Cells Ovalocytes PT INR APTT pO2 VBG pH VBG pCO2 VBG HCO3 VBG Total CO2 VBG O2 Sat (Calc) VBG Base Excess VBG Potassium Glucose Lactate FiO2 Sodium 145 Potassium 3.8 Chloride 103 Carbon Dioxide 28 Anion Gap 18 BUN 32 H Creatinine 0.9 Est GFR ( Amer) > 60 Est GFR (Non-Af Amer) > 60 POC Glucose (mg/dL) 167 H Random Glucose 89 Calcium 8.8 Phosphorus Magnesium Total Bilirubin 0.5 AST 43 ALT 40 Alkaline Phosphatase 64 Total Protein 6.8 Albumin 3.5 Globulin 3.3 Albumin/Globulin Ratio 1.1 Prostate Specific Ag 20.1 H Thyroxine (T4) 6.49 TSH 3rd Generation 0.14 L Venous Blood Potassium Urine Color Urine Clarity Urine pH Ur Specific [place] Urine Protein Urine Glucose (UA) Urine Ketones Urine Blood Urine Nitrate Urine Bilirubin Urine Urobilinogen Ur Leukocyte Esterase Urine RBC (Auto) Urine WBC Clumps (Auto) Urine Microscopic WBC Ur Squamous Epith Cells Amorphous Sediment Urine Bacteria Mycoplasma pneumon IgM Microbiology 05/12/18 08:40 Urine,Catheterized Urine Culture - Preliminary Gram Negative Amos 05/12/18 07:50 Blood Blood Culture - Preliminary NO GROWTH AFTER 24 HOURS 05/12/18 Unknown Blood Blood Culture - Preliminary NO GROWTH AFTER 24 HOURS Assessment and Plan (1) UTI (urinary tract infection) Status: Acute (2) Sepsis syndrome Status: Acute (3) Fever Status: Acute (4) Hypoxemia Status: Acute - Assessment and Plan (Free Text) Assessment: A/P- 82 year old [place] resident male with dementia, admitted with fever. afebrile today. clinically improved. cxr- negative per report UA- POs LE, neg Nitrates urine cx- prelim GNR blood cx- neg normal total wbc biut has mild bandemia. PLan- check sputum cx. In the Interim advise to place on broad spectrum IV abx to cover for both UTI and HAP.( meropnem and vanco ) day #2 pending ID and sens of the GNR. monitor aspiration precautions.
[2018-05-14] MEDS: Albuterol-Ipratrop 3 mg / 0.5 (3 ml) UD IH SCH ×3 (00:27→15:19)
[2018-05-14] MEDS: Meropenem 500 MG in Sodium Chloride 0.9% 100 ML IVPB SCH (05:45)
[2018-05-14] MEDS ORDERED: ALENDRONATE 70 MG TAB PO SCH (07:30)
[2018-05-14] MEDS: Sodium Chloride 0.45% 1,000 ML IV SCH (09:19)
[2018-05-14] MEDS: Omega-3-Acid Ethyl Esters 1 GM Cap PO SCH ×3 (10:08→21:13)
[2018-05-14] MEDS: Pantoprazole 40 mg EC Tab PO SCH (10:09)
[2018-05-14] MEDS: Cholecalciferol 1,000 INTLU TAB PO SCH ×2 (10:10→18:18)
--- NOTE | 2018-05-14 11:11 | CP.PCM.PN ---
Subjective - Date & Time of Evaluation Date of Evaluation: 05/14/18 Time of Evaluation: 11:11 - Subjective Subjective: ID Note- Patient seen and examined today. no new events overnight. remaisn afebrile. Objective - Vital Signs/Intake and Output Vital Signs (last 24 hours): Temp Pulse Resp BP Pulse Ox 98.3 F 87 20 103/57 L 90 L 05/14/18 08:13 05/14/18 08:13 05/14/18 08:13 05/14/18 08:13 05/14/18 08:13 - Medications Medications: Current Medications Acetaminophen (Tylenol 325mg Tab) 650 mg PO Q6 PRN PRN Reason: Fever >100.4 F Acetaminophen (Tylenol 325mg Tab) 650 mg PO Q4 PRN PRN Reason: Temp >101 Acetaminophen (Tylenol 325mg Tab) 650 mg PO Q6 PRN PRN Reason: Pain, Mild (1-3) Albuterol/Ipratropium (Duoneb 3 Mg/0.5 Mg (3 Ml) Ud) 3 ml IH RQ8 [facility] Last Admin: 05/14/18 07:15 Dose: 3 ml Alendronate Sodium (Fosamax) 70 mg PO FR KEN Bisacodyl (Dulcolax) 10 mg [place] DAILY PRN PRN Reason: No bowel movement after 3 days Calcium Carbonate (Oscal) 500 mg PO BID [facility] Last Admin: 05/14/18 10:10 Dose: 500 mg Cholecalciferol (Vitamin D) 1,000 intlu PO BID [facility] Last Admin: 05/14/18 10:10 Dose: 1,000 intlu Donepezil HCl (Aricept) 5 mg PO HS [facility] Last Admin: 05/13/18 21:00 Dose: 5 mg Enoxaparin Sodium (Lovenox) 40 mg [place] DAILY [facility]; Protocol Fluticasone Propionate (Flonase) 2 spr ASAD DAILY [facility] Last Admin: 05/14/18 10:11 Dose: 2 spr Guaifenesin (Robitussin) 200 mg PO Q6 PRN PRN Reason: Cough Vancomycin HCl 500 mg/ Sodium (Chloride) 100 mls @ 100 mls/hr IVPB Q12H [facility]; Protocol Last Admin: 05/14/18 04:30 Dose: 100 mls/hr Meropenem 500 mg/ Sodium (Chloride) 100 mls @ 100 mls/hr IVPB Q8@0600,1400,2200 [facility]; Protocol Last Admin: 05/14/18 05:45 Dose: 100 mls/hr Sodium Chloride (Sodium Chloride 0.45%) 1,000 mls @ 50 mls/hr IV .Q20H [facility] Stop: 05/15/18 08:29 Last Admin: 05/14/18 09:19 Dose: 50 mls/hr Lisinopril (Zestril) 5 mg PO HS [facility] Last Admin: 05/13/18 22:55 Dose: 5 mg Loratadine (Claritin) 10 mg PO DAILY [facility] Last Admin: 05/14/18 10:09 Dose: 10 mg Memantine (Namenda) 5 mg PO Q12 [facility] Last Admin: 05/14/18 10:09 Dose: 5 mg [id number] Ethyl Esters (Lovaza) 2 gm PO Q12 [facility] Last Admin: 05/14/18 10:08 Dose: Not Given Pantoprazole Sodium (Protonix Ec Tab) 40 mg PO DAILY [facility] Last Admin: 05/14/18 10:09 Dose: 40 mg Sennosides (Senokot Tab) 8.6 mg PO HS [facility] Last Admin: 05/13/18 22:54 Dose: 8.6 mg Tamsulosin HCl (Flomax) 0.4 mg PO QPM [facility] Last Admin: 05/13/18 17:03 Dose: 0.4 mg - Labs Labs: - Additional Findings Additional findings: - Constitutional Appears: No Acute Distress - Head Exam Head Exam: ATRAUMATIC - Eye Exam Eye Exam: EOMI - ENT Exam Additional comments: dry oropharynx - Neck Exam Neck exam: Positive for: Full Rom - Respiratory Exam Additional comments: no wheezing no crackles much better aeration today - Cardiovascular Exam Cardiovascular Exam: RRR, +S1, +S2 - GI/Abdominal Exam GI & Abdominal Exam: Normal Bowel Sounds, Soft Additional comments: NT, ND - Extremities Exam Extremities exam: Positive for: normal inspection - Neurological Exam Additional comments: awake and follows some simple commands Laboratory Results - last 72 hr 05/12/18 05/12/18 05/12/18 07:43 07:50 07:50 WBC 9.8 RBC 3.65 L Hgb 10.2 L Hct 30.4 L MCV 83.5 D MCH 28.0 MCHC 33.6 RDW 15.3 H Plt Count 220 MPV 8.7 Neut % (Auto) 89.1 H Lymph % (Auto) 3.4 L [place] % (Auto) 7.4 Eos % (Auto) 0.0 Baso % (Auto) 0.1 Neut # (Auto) 8.7 H Lymph # (Auto) 0.3 L [place] # (Auto) 0.7 Eos # (Auto) 0.0 Baso # (Auto) 0.0 Neutrophils % (Manual) 87 H Band Neutrophils % 5 H Lymphocytes % (Manual) 4 L Monocytes % (Manual) 4 Toxic Granulation Present Platelet Estimate Normal Hypochromasia (manual) Slight Anisocytosis (manual) Slight Tear Drop Cells Slight Ovalocytes Slight PT INR APTT pO2 VBG pH VBG pCO2 VBG HCO3 VBG Total CO2 VBG O2 Sat (Calc) VBG Base Excess VBG Potassium Glucose Lactate FiO2 Sodium 143 Potassium 3.5 L Chloride 98 Carbon Dioxide 29 Anion Gap 20 BUN 33 H Creatinine 1.3 Est GFR ( Amer) > 60 Est GFR (Non-Af Amer) 53 POC Glucose (mg/dL) 127 H Random Glucose 136 H Calcium 9.5 Phosphorus 4.5 Magnesium 1.8 Total Bilirubin 1.0 AST 63 H D ALT 41 Alkaline Phosphatase 71 Total Protein 7.2 Albumin 3.9 Globulin 3.3 Albumin/Globulin Ratio 1.2 Prostate Specific Ag Free PSA % Free PSA Total PSA Thyroxine (T4) TSH 3rd Generation Venous Blood Potassium Urine Color Urine Clarity Urine pH Ur Specific Mcguffey Urine Protein Urine Glucose (UA) Urine Ketones Urine Blood Urine Nitrate Urine Bilirubin Urine Urobilinogen Ur Leukocyte Esterase Urine RBC (Auto) Urine WBC Clumps (Auto) Urine Microscopic WBC Ur Squamous Epith Cells Amorphous Sediment Urine Bacteria Ur L.pneumophila Ag Mycoplasma pneumon IgM 05/12/18 05/12/18 05/12/18 07:50 08:20 08:40 WBC RBC Hgb Hct MCV MCH MCHC RDW Plt Count MPV Neut % (Auto) Lymph % (Auto) [place] % (Auto) Eos % (Auto) Baso % (Auto) Neut # (Auto) Lymph # (Auto) [place] # (Auto) Eos # (Auto) Baso # (Auto) Neutrophils % (Manual) Band Neutrophils % Lymphocytes % (Manual) Monocytes % (Manual) Toxic Granulation Platelet Estimate Hypochromasia (manual) Anisocytosis (manual) Tear Drop Cells Ovalocytes PT 15.7 H INR 1.4 APTT 34.4 pO2 37 VBG pH 7.45 H VBG pCO2 47 VBG HCO3 30.1 VBG Total CO2 34.1 H VBG O2 Sat (Calc) 74.7 H VBG Base Excess 7.5 H VBG Potassium 3.5 L Glucose 141 H Lactate 1.3 FiO2 21.0 Sodium 141.0 Potassium Chloride 105.0 Carbon Dioxide Anion Gap BUN Creatinine Est GFR ( Amer) Est GFR (Non-Af Amer) POC Glucose (mg/dL) Random Glucose Calcium Phosphorus Magnesium Total Bilirubin AST ALT Alkaline Phosphatase Total Protein Albumin Globulin Albumin/Globulin Ratio Prostate Specific Ag Free PSA % Free PSA Total PSA Thyroxine (T4) TSH 3rd Generation Venous Blood Potassium 3.5 L Urine Color Yellow Urine Clarity Turbid Urine pH 5.0 Ur Specific Mcguffey 1.012 Urine Protein 100 Urine Glucose (UA) Neg Urine Ketones Trace Urine Blood Moderate Urine Nitrate Negative Urine Bilirubin Negative Urine Urobilinogen 0.2-1.0 Ur Leukocyte Esterase Large Urine RBC (Auto) 10 H Urine WBC Clumps (Auto) Many H Urine Microscopic WBC 180 H Ur Squamous Epith Cells 3 Amorphous Sediment Few H Urine Bacteria Few H Ur L.pneumophila Ag Mycoplasma pneumon IgM 05/12/18 05/12/18 05/12/18 10:52 13:28 15:42 WBC RBC Hgb Hct MCV MCH MCHC RDW Plt Count MPV Neut % (Auto) Lymph % (Auto) [place] % (Auto) Eos % (Auto) Baso % (Auto) Neut # (Auto) Lymph # (Auto) [place] # (Auto) Eos # (Auto) Baso # (Auto) Neutrophils % (Manual) Band Neutrophils % Lymphocytes % (Manual) Monocytes % (Manual) Toxic Granulation Platelet Estimate Hypochromasia (manual) Anisocytosis (manual) Tear Drop Cells Ovalocytes PT INR APTT pO2 VBG pH VBG pCO2 VBG HCO3 VBG Total CO2 VBG O2 Sat (Calc) VBG Base Excess VBG Potassium Glucose Lactate FiO2 Sodium Potassium Chloride Carbon Dioxide Anion Gap BUN Creatinine Est GFR ( Amer) Est GFR (Non-Af Amer) POC Glucose (mg/dL) 154 H 131 H Random Glucose Calcium Phosphorus Magnesium Total Bilirubin AST ALT Alkaline Phosphatase Total Protein Albumin Globulin Albumin/Globulin Ratio Prostate Specific Ag Free PSA % Free PSA Total PSA Thyroxine (T4) TSH 3rd Generation Venous Blood Potassium Urine Color Urine Clarity Urine pH Ur Specific Mcguffey Urine Protein Urine Glucose (UA) Urine Ketones Urine Blood Urine Nitrate Urine Bilirubin Urine Urobilinogen Ur Leukocyte Esterase Urine RBC (Auto) Urine WBC Clumps (Auto) Urine Microscopic WBC Ur Squamous Epith Cells Amorphous Sediment Urine Bacteria Ur L.pneumophila Ag Negative Mycoplasma pneumon IgM 05/12/18 05/12/18 05/13/18 21:20 22:29 05:24 WBC RBC Hgb Hct MCV MCH MCHC RDW Plt Count MPV Neut % (Auto) Lymph % (Auto) [place] % (Auto) Eos % (Auto) Baso % (Auto) Neut # (Auto) Lymph # (Auto) [place] # (Auto) Eos # (Auto) Baso # (Auto) Neutrophils % (Manual) Band Neutrophils % Lymphocytes % (Manual) Monocytes % (Manual) Toxic Granulation Platelet Estimate Hypochromasia (manual) Anisocytosis (manual) Tear Drop Cells Ovalocytes PT INR APTT pO2 VBG pH VBG pCO2 VBG HCO3 VBG Total CO2 VBG O2 Sat (Calc) VBG Base Excess VBG Potassium Glucose Lactate FiO2 Sodium Potassium Chloride Carbon Dioxide Anion Gap BUN Creatinine Est GFR ( Amer) Est GFR (Non-Af Amer) POC Glucose (mg/dL) 114 H 88 Random Glucose Calcium Phosphorus Magnesium Total Bilirubin AST ALT Alkaline Phosphatase Total Protein Albumin Globulin Albumin/Globulin Ratio Prostate Specific Ag Free PSA % Free PSA Total PSA Thyroxine (T4) TSH 3rd Generation Venous Blood Potassium Urine Color Urine Clarity Urine pH Ur Specific Mcguffey Urine Protein Urine Glucose (UA) Urine Ketones Urine Blood Urine Nitrate Urine Bilirubin Urine Urobilinogen Ur Leukocyte Esterase Urine RBC (Auto) Urine WBC Clumps (Auto) Urine Microscopic WBC Ur Squamous Epith Cells Amorphous Sediment Urine Bacteria Ur L.pneumophila Ag Mycoplasma pneumon IgM Negative 05/13/18 05/13/18 05/13/18 06:00 06:00 06:00 WBC 9.2 RBC 3.89 L Hgb 10.8 L Hct 32.7 L MCV 84.0 MCH 27.8 MCHC 33.1 RDW 15.1 H Plt Count 232 MPV 8.3 Neut % (Auto) 88.0 H Lymph % (Auto) 5.8 L [place] % (Auto) 5.9 Eos % (Auto) 0.1 Baso % (Auto) 0.2 Neut # (Auto) 8.1 H Lymph # (Auto) 0.5 L [place] # (Auto) 0.5 Eos # (Auto) 0.0 Baso # (Auto) 0.0 Neutrophils % (Manual) Band Neutrophils % Lymphocytes % (Manual) Monocytes % (Manual) Toxic Granulation Platelet Estimate Hypochromasia (manual) Anisocytosis (manual) Tear Drop Cells Ovalocytes PT INR APTT pO2 VBG pH VBG pCO2 VBG HCO3 VBG Total CO2 VBG O2 Sat (Calc) VBG Base Excess VBG Potassium Glucose Lactate FiO2 Sodium 145 Potassium 3.8 Chloride 103 Carbon Dioxide 28 Anion Gap 18 BUN 32 H Creatinine 0.9 Est GFR ( Amer) > 60 Est GFR (Non-Af Amer) > 60 POC Glucose (mg/dL) Random Glucose 89 Calcium 8.8 Phosphorus Magnesium Total Bilirubin 0.5 AST 43 ALT 40 Alkaline Phosphatase 64 Total Protein 6.8 Albumin 3.5 Globulin 3.3 Albumin/Globulin Ratio 1.1 Prostate Specific Ag 20.1 H Free PSA 8.2 % Free PSA Not calculated Total PSA 26.3 H Thyroxine (T4) 6.49 TSH 3rd Generation 0.14 L Venous Blood Potassium Urine Color Urine Clarity Urine pH Ur Specific Mcguffey Urine Protein Urine Glucose (UA) Urine Ketones Urine Blood Urine Nitrate Urine Bilirubin Urine Urobilinogen Ur Leukocyte Esterase Urine RBC (Auto) Urine WBC Clumps (Auto) Urine Microscopic WBC Ur Squamous Epith Cells Amorphous Sediment Urine Bacteria Ur L.pneumophila Ag Mycoplasma pneumon IgM 05/13/18 05/13/18 05/13/18 10:52 16:40 21:16 WBC RBC Hgb Hct MCV MCH MCHC RDW Plt Count MPV Neut % (Auto) Lymph % (Auto) [place] % (Auto) Eos % (Auto) Baso % (Auto) Neut # (Auto) Lymph # (Auto) [place] # (Auto) Eos # (Auto) Baso # (Auto) Neutrophils % (Manual) Band Neutrophils % Lymphocytes % (Manual) Monocytes % (Manual) Toxic Granulation Platelet Estimate Hypochromasia (manual) Anisocytosis (manual) Tear Drop Cells Ovalocytes PT INR APTT pO2 VBG pH VBG pCO2 VBG HCO3 VBG Total CO2 VBG O2 Sat (Calc) VBG Base Excess VBG Potassium Glucose Lactate FiO2 Sodium Potassium Chloride Carbon Dioxide Anion Gap BUN Creatinine Est GFR ( Amer) Est GFR (Non-Af Amer) POC Glucose (mg/dL) 167 H 130 H 117 H Random Glucose Calcium Phosphorus Magnesium Total Bilirubin AST ALT Alkaline Phosphatase Total Protein Albumin Globulin Albumin/Globulin Ratio Prostate Specific Ag Free PSA % Free PSA Total PSA Thyroxine (T4) TSH 3rd Generation Venous Blood Potassium Urine Color Urine Clarity Urine pH Ur Specific Mcguffey Urine Protein Urine Glucose (UA) Urine Ketones Urine Blood Urine Nitrate Urine Bilirubin Urine Urobilinogen Ur Leukocyte Esterase Urine RBC (Auto) Urine WBC Clumps (Auto) Urine Microscopic WBC Ur Squamous Epith Cells Amorphous Sediment Urine Bacteria Ur L.pneumophila Ag Mycoplasma pneumon IgM 05/14/18 05:14 WBC RBC Hgb Hct MCV MCH MCHC RDW Plt Count MPV Neut % (Auto) Lymph % (Auto) [place] % (Auto) Eos % (Auto) Baso % (Auto) Neut # (Auto) Lymph # (Auto) [place] # (Auto) Eos # (Auto) Baso # (Auto) Neutrophils % (Manual) Band Neutrophils % Lymphocytes % (Manual) Monocytes % (Manual) Toxic Granulation Platelet Estimate Hypochromasia (manual) Anisocytosis (manual) Tear Drop Cells Ovalocytes PT INR APTT pO2 VBG pH VBG pCO2 VBG HCO3 VBG Total CO2 VBG O2 Sat (Calc) VBG Base Excess VBG Potassium Glucose Lactate FiO2 Sodium Potassium Chloride Carbon Dioxide Anion Gap BUN Creatinine Est GFR ( Amer) Est GFR (Non-Af Amer) POC Glucose (mg/dL) 125 H Random Glucose Calcium Phosphorus Magnesium Total Bilirubin AST ALT Alkaline Phosphatase Total Protein Albumin Globulin Albumin/Globulin Ratio Prostate Specific Ag Free PSA % Free PSA Total PSA Thyroxine (T4) TSH 3rd Generation Venous Blood Potassium Urine Color Urine Clarity Urine pH Ur Specific Mcguffey Urine Protein Urine Glucose (UA) Urine Ketones Urine Blood Urine Nitrate Urine Bilirubin Urine Urobilinogen Ur Leukocyte Esterase Urine RBC (Auto) Urine WBC Clumps (Auto) Urine Microscopic WBC Ur Squamous Epith Cells Amorphous Sediment Urine Bacteria Ur L.pneumophila Ag Mycoplasma pneumon IgM Microbiology 05/12/18 08:40 Urine,Catheterized Urine Culture - Final Escherichia Coli 05/12/18 07:50 Blood Blood Culture - Preliminary NO GROWTH AFTER 48 HOURS 05/12/18 Unknown Blood Blood Culture - Preliminary NO GROWTH AFTER 48 HOURS Assessment and Plan (1) UTI (urinary tract infection) Status: Acute (2) Sepsis syndrome Status: Acute (3) Fever Status: Resolved (4) Hypoxemia Status: Acute - Assessment and Plan (Free Text) Assessment: A/P- 82 year old [place] resident male with dementia, admitted with fever. afebrile past 48 hours. clinically improved. cxr- negative per report UA- POs LE, neg Nitrates urine cx- E.Coli pansensitive blood cx- neg PLan- has completed 3 days of IV meropbnem and vanco. d/c vanco today. d/c meropnem. can be switched to oral bactrim or nitrofurantoin for 7 days.
--- NOTE | 2018-05-14 14:26 | CP.PCM.PN ---
Subjective - Date & Time of Evaluation Date of Evaluation: 05/14/18 Time of Evaluation: 14:05 - Subjective Subjective: F/U UTI more alert today, answer simple questions, follows commands Objective - Vital Signs/Intake and Output Vital Signs (last 24 hours): Temp Pulse Resp BP Pulse Ox 98.3 F 87 20 103/57 L 90 L 05/14/18 08:13 05/14/18 08:13 05/14/18 08:13 05/14/18 08:13 05/14/18 08:13 - Medications Medications: Current Medications Acetaminophen (Tylenol 325mg Tab) 650 mg PO Q6 PRN PRN Reason: Fever >100.4 F Acetaminophen (Tylenol 325mg Tab) 650 mg PO Q4 PRN PRN Reason: Temp >101 Acetaminophen (Tylenol 325mg Tab) 650 mg PO Q6 PRN PRN Reason: Pain, Mild (1-3) Albuterol/Ipratropium (Duoneb 3 Mg/0.5 Mg (3 Ml) Ud) 3 ml IH RQ8 [facility] Last Admin: 05/14/18 07:15 Dose: 3 ml Alendronate Sodium (Fosamax) 70 mg PO FR [facility] Bisacodyl (Dulcolax) 10 mg [place] DAILY PRN PRN Reason: No bowel movement after 3 days Calcium Carbonate (Oscal) 500 mg PO BID [facility] Last Admin: 05/14/18 10:10 Dose: 500 mg Cholecalciferol (Vitamin D) 1,000 intlu PO BID [facility] Last Admin: 05/14/18 10:10 Dose: 1,000 intlu Donepezil HCl (Aricept) 5 mg PO HS [facility] Last Admin: 05/13/18 21:00 Dose: 5 mg Enoxaparin Sodium (Lovenox) 40 mg [place] DAILY [facility]; Protocol Fluticasone Propionate (Flonase) 2 spr ASAD DAILY [facility] Last Admin: 05/14/18 10:11 Dose: 2 spr Guaifenesin (Robitussin) 200 mg PO Q6 PRN PRN Reason: Cough Vancomycin HCl 500 mg/ Sodium (Chloride) 100 mls @ 100 mls/hr IVPB Q12H [facility]; Protocol Last Admin: 05/14/18 04:30 Dose: 100 mls/hr Meropenem 500 mg/ Sodium (Chloride) 100 mls @ 100 mls/hr IVPB Q8@0600,1400,2200 [facility]; Protocol Last Admin: 05/14/18 05:45 Dose: 100 mls/hr Sodium Chloride (Sodium Chloride 0.45%) 1,000 mls @ 50 mls/hr IV .Q20H [facility] Stop: 05/15/18 08:29 Last Admin: 05/14/18 09:19 Dose: 50 mls/hr Lisinopril (Zestril) 5 mg PO [facility] Last Admin: 05/13/18 22:55 Dose: 5 mg Loratadine (Claritin) 10 mg PO DAILY [facility] Last Admin: 05/14/18 10:09 Dose: 10 mg Memantine (Namenda) 5 mg PO Q12 [facility] Last Admin: 05/14/18 10:09 Dose: 5 mg [id number] Ethyl Esters (Lovaza) 2 gm PO Q12 [facility] Last Admin: 05/14/18 10:08 Dose: Not Given Pantoprazole Sodium (Protonix Ec Tab) 40 mg PO DAILY [facility] Last Admin: 05/14/18 10:09 Dose: 40 mg Sennosides (Senokot Tab) 8.6 mg PO [facility] Last Admin: 05/13/18 22:54 Dose: 8.6 mg Tamsulosin HCl (Flomax) 0.4 mg PO QPM [facility] Last Admin: 05/13/18 17:03 Dose: 0.4 mg - Labs Labs: 05/13/18 06:00 05/13/18 06:00 PT 15.7 Seconds (9.8-13.1) H 05/12/18 07:50 INR 1.4 05/12/18 07:50 APTT 34.4 Seconds (25.6-37.1) 05/12/18 07:50 - Constitutional Appears: No Acute Distress - Head Exam Head Exam: NORMAL INSPECTION - Eye Exam Additional comments: L eye deviated laterally - ENT Exam Additional comments: Dry oropharynx - Neck Exam Neck Exam: Normal Inspection - Respiratory Exam Respiratory Exam: Decreased Breath Sounds (at bases) - Cardiovascular Exam Cardiovascular Exam: REGULAR RHYTHM - GI/Abdominal Exam GI & Abdominal Exam: Soft, Normal Bowel Sounds - Extremities Exam Extremities Exam: Tenderness Additional comments: L knee - Back Exam Additional comments: tenderness, small sacral red area - Neurological Exam Neurological Exam: Alert, Awake Additional comments: Follows some simple commands, generalized weakness. - Psychiatric Exam Psychiatric exam: Anxious - Skin Skin Exam: Warm Assessment and Plan (1) UTI (urinary tract infection) Assessment & Plan: E Coli. Status: Deleted (2) Fever Status: Resolved (3) Sepsis syndrome Status: Acute (4) Hypoxemia Status: Acute (5) Dementia Status: Chronic (6) HTN (hypertension) Status: Chronic (7) DMII (diabetes mellitus, type 2) Status: Chronic - Assessment and Plan (Free Text) Plan: U C-S E Coli, on Nitrofurantoin po, Merren DC, continue rest of Tx, ABG R/A am
[2018-05-14 15:38] LABS: HEMOGLOBIN 10.8 g/dL (12.0-18.0); MEAN CELL VOLUME 83.8 fl (80.0-94.0); MEAN CORPUSCULAR HEMOGLOBIN 27.5 pg (27.0-31.0); MEAN CORPUSCULAR HGB CONC 32.8 g/dL (33.0-37.0); RBC 3.94 Mil/uL (4.40-5.90); RED CELL DISTRIBUTION WIDTH 15.2 % (11.5-14.5); WHITE BLOOD COUNT 6.2 K/uL (4.8-10.8)
[2018-05-14 15:51] LABS: BLOOD UREA NITROGEN 24 mg/dl (9-20); CALCIUM 8.6 mg/dL (8.4-10.2); GFR NON-AFRICAN AMERICAN > 60
[2018-05-15] MEDS: Albuterol-Ipratrop 3 mg / 0.5 (3 ml) UD IH SCH ×4 (00:19→15:20)
[2018-05-15] MEDS: Sodium Chloride 0.45% 1,000 ML IV SCH (05:30)
[2018-05-15 06:33] LABS: ABG ALLEN TEST YES; ARTERIAL BLOOD GAS HCO3 29.7 mmol/L (21-28); ARTERIAL BLOOD GAS HEMOGLOBIN 10.5 g/dL (11.7-17.4); ARTERIAL BLOOD GAS O2 CAPACITY 14.3 mL/dL (16-24); ARTERIAL BLOOD GAS O2 CONTENT 13.5 ML/dL (15-23); ARTERIAL BLOOD GAS O2 SAT 94.3 % (95-98); ARTERIAL BLOOD GAS PCO2 28 mm/Hg (35-45); ARTERIAL BLOOD GAS PO2 52 mm/Hg (80-100); ARTERIAL BLOOD GAS TCO2 28.4 mmol/L (22-28)
[2018-05-15 08:49] LABS: HEMOGLOBIN 10.8 g/dL (12.0-18.0); MEAN CELL VOLUME 82.9 fl (80.0-94.0); MEAN CORPUSCULAR HEMOGLOBIN 27.4 pg (27.0-31.0); MEAN CORPUSCULAR HGB CONC 33.1 g/dL (33.0-37.0); RBC 3.93 Mil/uL (4.40-5.90); RED CELL DISTRIBUTION WIDTH 15.2 % (11.5-14.5); WHITE BLOOD COUNT 9.5 K/uL (4.8-10.8)
[2018-05-15 09:51] LABS: ALB/GLOB RATIO 1.1 (1.0-2.1); ALBUMIN 3.5 g/dL (3.5-5.0); ALT/SGPT 48 U/L (21-72); AST/SGOT 69 U/L (17-59); BLOOD UREA NITROGEN 26 mg/dl (9-20); CALCIUM 8.9 mg/dL (8.4-10.2); GFR NON-AFRICAN AMERICAN > 60
--- NOTE | 2018-05-15 13:45 | CP.PCM.PN ---
Subjective - Date & Time of Evaluation Date of Evaluation: 05/15/18 Time of Evaluation: 10:30 - Subjective Subjective: F/U UTI Sleepy, arousable, able to talk, with slow mentation. Objective - Vital Signs/Intake and Output Vital Signs (last 24 hours): Temp Pulse Resp BP Pulse Ox 99.4 F 89 20 144/64 94 L 05/15/18 08:11 05/15/18 08:11 05/15/18 08:11 05/15/18 08:11 05/15/18 08:11 - Medications Medications: Current Medications Albuterol/Ipratropium (Duoneb 3 Mg/0.5 Mg (3 Ml) Ud) 3 ml IH RQ8 [facility] Last Admin: 05/15/18 09:43 Dose: 3 ml Bisacodyl (Dulcolax) 10 mg [place] DAILY PRN PRN Reason: No bowel movement after 3 days Enoxaparin Sodium (Lovenox) 40 mg [place] DAILY [facility]; Protocol Fluticasone Propionate (Flonase) 2 spr ASAD DAILY [facility] Last Admin: 05/15/18 09:38 Dose: 2 spr - Labs Labs: 05/15/18 06:50 05/15/18 06:50 PT 15.7 Seconds (9.8-13.1) H 05/12/18 07:50 INR 1.4 05/12/18 07:50 APTT 34.4 Seconds (25.6-37.1) 05/12/18 07:50 - Constitutional Appears: No Acute Distress - Head Exam Head Exam: NORMAL INSPECTION - Eye Exam Eye Exam: PERRL Additional comments: L eye deviated laterally. - ENT Exam Additional comments: Dry Oropharynx - Neck Exam Neck Exam: Normal Inspection - Respiratory Exam Respiratory Exam: Decreased Breath Sounds, Rhonchi - Cardiovascular Exam Cardiovascular Exam: REGULAR RHYTHM - GI/Abdominal Exam GI & Abdominal Exam: Soft, Normal Bowel Sounds - Extremities Exam Extremities Exam: Normal Inspection - Back Exam Additional comments: Sacral red area - Neurological Exam Neurological Exam: Awake Additional comments: Forgetful, follows some simple commands. - Skin Skin Exam: Warm Assessment and Plan (1) E. coli UTI Status: Acute (2) Fever Status: Resolved (3) Sepsis syndrome Status: Acute (4) Hypoxemia Status: Acute (5) Dementia Status: Chronic (6) HTN (hypertension) Status: Chronic (7) DMII (diabetes mellitus, type 2) Status: Chronic - Assessment and Plan (Free Text) Plan: Keep in NOP, Swallow eval.
[2018-05-15] MEDS: Enoxaparin 40 mg Syringe SC SCH (16:19)
[2018-05-15] MEDS: Gentamicin 80mg/50ml NS 80 MG/50 ML BAG IVPB SCH (21:24)
[2018-05-16] MEDS: Albuterol-Ipratrop 3 mg / 0.5 (3 ml) UD IH SCH ×4 (00:17→23:08)
[2018-05-16] MEDS: Gentamicin 80mg/50ml NS 80 MG/50 ML BAG IVPB SCH ×2 (04:56→12:14)
[2018-05-16] MEDS ORDERED: Dextrose 5%/0.9% NS 1,000 ML IV SCH (09:00)
[2018-05-16] MEDS: Enoxaparin 40 mg Syringe SC SCH (09:01)
--- NOTE | 2018-05-16 14:35 | CP.PCM.PN ---
Subjective - Date & Time of Evaluation Date of Evaluation: 05/16/18 Time of Evaluation: 12:30 - Subjective Subjective: F/U UTI Lethargic, arousable, open eyes to verbal tactile stimuli, mumble words. Objective - Vital Signs/Intake and Output Vital Signs (last 24 hours): Temp Pulse Resp BP Pulse Ox 97.9 F 81 20 132/71 96 05/16/18 09:00 05/16/18 09:00 05/16/18 09:00 05/16/18 09:00 05/16/18 09:00 - Medications Medications: Current Medications Albuterol/Ipratropium (Duoneb 3 Mg/0.5 Mg (3 Ml) Ud) 3 ml IH RQ8 [facility] Last Admin: 05/16/18 08:02 Dose: 3 ml Bisacodyl (Dulcolax) 10 mg [place] DAILY PRN PRN Reason: No bowel movement after 3 days Enoxaparin Sodium (Lovenox) 40 mg [place] DAILY [facility]; Protocol Last Admin: 05/16/18 09:01 Dose: 40 mg Fluticasone Propionate (Flonase) 2 spr ASAD DAILY [facility] Last Admin: 05/16/18 09:01 Dose: 2 spr Gentamicin Sulfate/Sodium Chloride (Gentamicin 80mg/50ml Ns) 80 mg in 50 mls @ 49.02 mls/hr IVPB Q8H [facility]; Protocol Last Admin: 05/16/18 12:14 Dose: 49.02 mls/hr Dextrose/Sodium Chloride (Dextrose 5%/0.9% Ns 1000 Ml) 1,000 mls @ 80 mls/hr IV .[id number] [facility] Stop: 05/16/18 18:33 Last Admin: 05/16/18 09:00 Dose: 80 mls/hr Nitrofurantoin Macrocrystals (Macrobid) 100 mg PO Q12 [facility]; Protocol Last Admin: 05/16/18 09:02 Dose: Not Given - Labs Labs: 05/15/18 06:50 05/15/18 06:50 PT 15.7 Seconds (9.8-13.1) H 05/12/18 07:50 INR 1.4 05/12/18 07:50 APTT 34.4 Seconds (25.6-37.1) 05/12/18 07:50 - Constitutional Appears: No Acute Distress - Head Exam Head Exam: NORMAL INSPECTION - Eye Exam Eye Exam: PERRL Additional comments: L eye deviated laterally. - ENT Exam ENT Exam: Normal Exam - Neck Exam Neck Exam: Normal Inspection - Respiratory Exam Respiratory Exam: Decreased Breath Sounds (at bases) Additional comments: Crackle at bases - Cardiovascular Exam Cardiovascular Exam: REGULAR RHYTHM - GI/Abdominal Exam GI & Abdominal Exam: Soft, Normal Bowel Sounds - Extremities Exam Extremities Exam: Normal Inspection - Back Exam Additional comments: Sacral red area - Neurological Exam Neurological Exam: Awake Additional comments: Lethargic, arousable, open eyes to verbal and tactile stimuli, generalized weakness - Skin Skin Exam: Warm Assessment and Plan (1) E. coli UTI Status: Acute (2) Fever Status: Resolved (3) Sepsis syndrome Status: Acute (4) Hypoxemia Status: Acute (5) Dementia Status: Chronic (6) HTN (hypertension) Status: Chronic (7) DMII (diabetes mellitus, type 2) Status: Chronic - Assessment and Plan (Free Text) Plan: Chest X-Ray, continue Merren, Macrobid, Lovenox, Fuilpack and rest of Tx.
[2018-05-16] MEDS: Meropenem 500 MG in Sodium Chloride 0.9% 100 ML IVPB SCH (17:05)
[2018-05-16] MEDS: Vitamins A & D Oint UD Foilpak TOP SCH (18:26)
[2018-05-17] MEDS: Meropenem 500 MG in Sodium Chloride 0.9% 100 ML IVPB SCH ×2 (01:00→09:08)
[2018-05-17] MEDS: Dextrose 5%/0.9% NS 1,000 ML IV SCH ×3 (01:00→16:39)
[2018-05-17] MEDS: Albuterol-Ipratrop 3 mg / 0.5 (3 ml) UD IH SCH ×3 (07:32→23:34)
[2018-05-17] MEDS: Enoxaparin 40 mg Syringe SC SCH (09:07)
[2018-05-17] MEDS: Vitamins A & D Oint UD Foilpak TOP SCH ×2 (09:07→17:17)
[2018-05-17 09:27] LABS: HEMOGLOBIN 10.5 g/dL (12.0-18.0); MEAN CELL VOLUME 83.4 fl (80.0-94.0); MEAN CORPUSCULAR HEMOGLOBIN 27.1 pg (27.0-31.0); MEAN CORPUSCULAR HGB CONC 32.4 g/dL (33.0-37.0); RBC 3.88 Mil/uL (4.40-5.90); RED CELL DISTRIBUTION WIDTH 15.4 % (11.5-14.5); WHITE BLOOD COUNT 10.3 K/uL (4.8-10.8)
[2018-05-17 09:48] LABS: ALB/GLOB RATIO 0.9 (1.0-2.1); ALBUMIN 3.3 g/dL (3.5-5.0); ALT/SGPT 47 U/L (21-72); AST/SGOT 69 U/L (17-59); BLOOD UREA NITROGEN 26 mg/dl (9-20); CALCIUM 8.5 mg/dL (8.4-10.2); GFR NON-AFRICAN AMERICAN > 60
--- NOTE | 2018-05-17 10:39 | RAD ---
Date of service: 05/17/2018 HISTORY: Cough COMPARISON: FINDINGS: LUNGS: The lungs are well inflated. There is confluent airspace disease in the right lower lobe. There is a left retrocardiac opacity. PLEURA: Question of small left pleural effusion. No new pneumothorax. CARDIOVASCULAR: The heart is normal in size. There are aortic atherosclerotic calcifications present. OSSEOUS STRUCTURES: Within normal limits for the patient's age. VISUALIZED UPPER ABDOMEN: Normal. OTHER FINDINGS: None. IMPRESSION: Interval development of right lower lobe airspace disease which may represent atelectasis/pneumonia. Left retrocardiac opacity also may represent atelectasis or pneumonia. Question of small left pleural effusion. Follow-up PA and lateral radiographs obtained medical management are recommended for further evaluation.
[2018-05-17] MEDS ORDERED: Potassium Chloride 20 mEq ER Tab PO ONE (11:57)
[2018-05-17] MEDS ORDERED: Acetylcysteine 10% 4 ML IH SCH (13:00)
[2018-05-17 13:43] LABS: ABG ALLEN TEST YES; ARTERIAL BLOOD GAS HCO3 29.1 mmol/L (21-28); ARTERIAL BLOOD GAS HEMOGLOBIN 10.6 g/dL (11.7-17.4); ARTERIAL BLOOD GAS O2 CAPACITY 14.4 mL/dL (16-24); ARTERIAL BLOOD GAS PCO2 30 mm/Hg (35-45); ARTERIAL BLOOD GAS PH 7.57 (7.35-7.45); ARTERIAL BLOOD GAS PO2 48 mm/Hg (80-100); ARTERIAL BLOOD GAS TCO2 28.4 mmol/L (22-28)
[2018-05-17] MEDS: Acetylcysteine 10% 4 ML IH SCH ×2 (15:22→23:35)
--- NOTE | 2018-05-17 15:25 | CP.PCM.PN ---
Subjective - Date & Time of Evaluation Date of Evaluation: 05/17/18 Time of Evaluation: 11:30 - Subjective Subjective: F/U UTI awake, answer simple questions, slow mentation, dry cough as reported by nurses Objective - Vital Signs/Intake and Output Vital Signs (last 24 hours): Temp Pulse Resp BP Pulse Ox 97.5 F L 82 20 147/84 92 L 05/17/18 09:00 05/17/18 10:33 05/17/18 09:00 05/17/18 09:00 05/17/18 10:33 - Medications Medications: Current Medications Acetaminophen (Tylenol 325 Mg Supp) 325 mg AR Q6 PRN PRN Reason: Fever >100.4 F Acetylcysteine (Mucomyst 10% 4ml) 2 ml IH RQ8 [facility] Last Admin: 05/17/18 15:22 Dose: 2 ml Albuterol/Ipratropium (Duoneb 3 Mg/0.5 Mg (3 Ml) Ud) 3 ml IH RQ8 [facility] Last Admin: 05/17/18 15:21 Dose: 3 ml Bisacodyl (Dulcolax) 10 mg AR DAILY PRN PRN Reason: No bowel movement after 3 days Enoxaparin Sodium (Lovenox) 40 mg SC DAILY [facility]; Protocol Last Admin: 05/17/18 09:07 Dose: 40 mg Fluticasone Propionate (Flonase) 2 spr ASAD DAILY [facility] Last Admin: 05/17/18 09:07 Dose: 2 spr Dextrose/Sodium Chloride (Dextrose 5%/0.9% Ns 1000 Ml) 1,000 mls @ 80 mls/hr IV .[id number] [facility] Stop: 05/19/18 00:39 Last Admin: 05/17/18 14:40 Dose: Not Given Nitrofurantoin Macrocrystals (Macrobid) 100 mg PO Q12@0100,1300 [facility]; Protocol Last Admin: 05/17/18 13:10 Dose: 100 mg Vitamin A (Vitamin A & D Oint Ud Foilpak) 1 ea TOP BID [facility] Last Admin: 05/17/18 09:07 Dose: 1 ea - Labs Labs: 05/17/18 09:07 05/17/18 09:07 PT 15.7 Seconds (9.8-13.1) H 05/12/18 07:50 INR 1.4 05/12/18 07:50 APTT 34.4 Seconds (25.6-37.1) 05/12/18 07:50 - Constitutional Appears: Chronically Ill - Head Exam Head Exam: NORMAL INSPECTION - Eye Exam Eye Exam: PERRL Additional comments: L eye deviated laterally. - ENT Exam ENT Exam: Normal Exam - Neck Exam Neck Exam: Normal Inspection - Respiratory Exam Respiratory Exam: Decreased Breath Sounds, Rhonchi - Cardiovascular Exam Cardiovascular Exam: REGULAR RHYTHM - GI/Abdominal Exam GI & Abdominal Exam: Soft, Normal Bowel Sounds - Extremities Exam Extremities Exam: Normal Inspection - Back Exam Additional comments: Sacral area red - Neurological Exam Neurological Exam: Awake Additional comments: eyes open, answer simple questions, generalized weakness,no focal motor deficit - Psychiatric Exam Psychiatric exam: Anxious - Skin Skin Exam: Warm Assessment and Plan (1) E. coli UTI Status: Acute (2) Fever Status: Resolved (3) Sepsis syndrome Status: Acute (4) Hypoxemia Status: Acute (5) Dementia Status: Chronic (6) HTN (hypertension) Status: Chronic (7) DMII (diabetes mellitus, type 2) Status: Chronic - Assessment and Plan (Free Text) Plan: Pureed diet, thicken fluids after swallowing eval, CT Chest multifocal PNA, Atb cooverage, f/u ID, DuoNeb, Mucumyst, Mucinex, continue rest of Tx
--- NOTE | 2018-05-17 16:51 | CT ---
Date of service: 05/17/2018 PROCEDURE: CT Chest without contrast HISTORY: Rule out pneumonia COMPARISON: Comparison made with chest radiograph earlier same day. TECHNIQUE: Contiguous axial images were obtained through the chest without intravenous contrast enhancement. Sagittal and coronal reconstructions were performed. Radiation dose: Total exam DLP = 512.3 mGy-cm. This CT exam was performed using one or more of the following dose reduction techniques: Automated exposure control, adjustment of the mA and/or kV according to patient size, and/or use of iterative reconstruction technique. FINDINGS: LUNGS: Large area of dense consolidation with few air bronchograms left posteromedial lower lung base consistent with atelectasis however superimposed infiltrate not excluded. There are also patchy multifocal infiltrate changes seen throughout the right upper as well as middle and lower lobes. MEDIASTINUM: The heart remains enlarged. No significant pericardial effusion. Ascending thoracic aorta measures approximately 3.8 cm and descending thoracic aorta measures approximately 2.7 cm. Mild partially calcified atherosclerotic plaque seen along the thoracic aorta. Pulmonary trunk measures approximately 3.2 cm. There are multiple small to mildly enlarged mediastinal lymph nodes the largest in the right para sagittal pretracheal/precarinal region measuring approximately 2.5 cm though this lymph node does exhibit a fatty center. Evaluation for hilar adenopathy is limited due to the lack of circulating intravenous contrast material. Trachea is midline and patent with no large central endoluminal lesions. The esophagus is markedly distended throughout with a large amount of layering fluid and debris which extends to the level of the thoracic inlet. Findings consistent with dysmotility and/or reflux . Endoscopy follow-up recommended to exclude a endoluminal of or invasive wall lesion including but not limited to esophageal carcinoma. PLEURA: No significant pleural fluid. No pneumothorax. BONES: Multilevel degenerative spondylosis of the thoracic lower cervical and upper lumbar spine. UPPER ABDOMEN: Grossly unremarkable. OTHER FINDINGS: None. IMPRESSION: Large area of dense consolidation with few air bronchograms left posteromedial lower lung base consistent with atelectasis however superimposed infiltrate not excluded. There are also patchy multifocal infiltrate changes seen throughout the right upper as well as middle and lower lobes. Markedly distended esophagus on with large amount of layering fluid and debris that extends to the near the thoracic inlet. Findings may represent dysmotility and/or reflux however endoscopy follow-up recommended to exclude an endoluminal on or esophageal wall lesion including but not limited to esophagitis carcinoma. Multiple small to mildly enlarged mediastinal lymph nodes. Cardiomegaly.
[2018-05-17] MEDS: Cholecalciferol 1,000 INTLU TAB PO SCH (17:17)
[2018-05-17] MEDS: Docusate-Senna 50 mg-8.6 mg Tab PO SCH (21:18)
[2018-05-17] MEDS: Artificial Tears Opht Soln OU SCH (21:19)
[2018-05-18] MEDS: Gentamicin 80mg/50ml NS 80 MG/50 ML BAG IVPB SCH ×4 (01:00→22:00)
[2018-05-18] MEDS: Dextrose 5%/0.9% NS 1,000 ML IV SCH ×2 (02:12→15:16)
[2018-05-18] MEDS: Artificial Tears Opht Soln OU SCH ×4 (03:50→22:00)
[2018-05-18] MEDS: Albuterol-Ipratrop 3 mg / 0.5 (3 ml) UD IH SCH ×3 (07:34→23:34)
[2018-05-18] MEDS: Acetylcysteine 10% 4 ML IH SCH ×2 (07:35→15:28)
[2018-05-18] MEDS: Enoxaparin 40 mg Syringe SC SCH (09:13)
[2018-05-18] MEDS: Pantoprazole 40 mg EC Tab PO SCH (09:15)
[2018-05-18] MEDS: Cholecalciferol 1,000 INTLU TAB PO SCH ×2 (09:16→17:37)
[2018-05-18] MEDS: Multivitamin With Minerals Tab PO SCH (09:16)
[2018-05-18] MEDS: Vitamins A & D Oint UD Foilpak TOP SCH ×2 (09:16→17:37)
[2018-05-18 10:47] LABS: BLOOD UREA NITROGEN 24 mg/dl (9-20); CALCIUM 8.7 mg/dL (8.4-10.2); GFR NON-AFRICAN AMERICAN > 60
[2018-05-18] MEDS: Potassium Chloride 20 mEq ER Tab PO SCH (11:56)
--- NOTE | 2018-05-18 14:16 | PQF ---
PROVIDER RESPONSE TEXT: Aspiration Pneumonia REVIEWER QUERY TEXT: Clarification of Clinical Diagnostic Findings Please clarify if there are any additional dxs. 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 Plan: may need chest CT for further evaluation of the hypoxemia and OR r/o PE with CTA. The patient's Clinical Indicators include: ---- Query created by: Brisa Pizano on 05/14/2018 12:52 PM Electronically signed by: Ramiro Hernández MD 05/18/2018 2:12 PM
--- NOTE | 2018-05-18 14:16 | PQF ---
PROVIDER RESPONSE TEXT: Sepsis 2* to UTI POA REVIEWER QUERY TEXT: Clarification of Clinical Diagnostic Findings Please further clarify the diagnosis: 'Sepsis Syndrome" : according to the [facility]oding [facility] this term is considered poorly defined blood culture x 2: no growth after 48 hours urine culture: e-coli Sepsis Syndrome is listed as a diagnosis in the ER note, the ID consult and in the H and P.the ER no te also includes: MDM: fever, lethargy, r/o sepsis, pneumonia, UTI H and P includes:PMHx: Dementia, HTN, DMII, brought via EMS to ER :evaluated for high fever of 102.6 while in the NH, about 5:30 pm on DOA, associated to cough; had Tylenol in this facility with no rel ief. Worsening symptoms: Pt found hypoxemia, lethargic, unable to follow commands, Labs result: U/A with B acteria 05/12 ID: Hx. Sepsis patient (1) UTI (urinary tract infection) Status: Acute (2) Sepsis syndrome Status: Acute (3) Fever Status: Acute (4) Hypoxemia Status: Acute admitted with fever.--etiol of fever could be multifactorial.--cxr- negative per report but pt. is hy poxemic.--UA- POs LE, neg Nitrates normal total wbc biut has mild bandemia IV abx to cover for both UTI and HAP.monitor aspiration precautions. 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 The patient's Clinical Indicators include: ----- Query created by: Brisa Pizano on 05/14/2018 12:36 PM Electronically signed by: Ramiro Hernández MD 05/18/2018 2:12 PM
--- NOTE | 2018-05-18 14:16 | PQF ---
PROVIDER RESPONSE TEXT: Aspiration pneumonia Not POA REVIEWER QUERY TEXT: Pneumonia Specificity 2 (two) queries: 1. Pneumonia :POA (Present on Admission)? 2. . Pneumonia is documented in the Medical Record. Please specify the type of pneumonia and the caus ative organism (includes probable or suspected) Such as: Type: -- Aspiration pneumonia (please also specify the aspirate) - Please indicate if the aspiration is postprocedure -- Bacterial (please document suspected or probable organism) -- Bronchopneumonia (please document suspected or probable organism) -- Interstitial pneumonia -- Organizing pneumonia / BOOP -- Viral -- Other, please specify Chest CT report includes:Large area of dense consolidation with few air bronchograms left posterome dial lower lung base consistent with atelectasis however superimposed infiltrate not excluded.There are also patchy multifocal infiltrate changes seen throughout the right upper as well as middle and lower lobes. Markedly distended esophagus on with large amount of layering fluid and debris that extends to the ne ar the thoracic inlet. Findings may represent dysmotility and/or reflux however endoscopy follow-up r ecommended to exclude an endoluminal on or esophageal wall lesion including but not limited to esoph agitis carcinoma. 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 intermittent oral holding/prolonged A-P transit time observed; pt. with difficulty extracting liquids via straw---Pt w ith frequent verbalizing during PO intake putting him at further risk for aspiration .Rec. reinitiate diet of puree and nectar thick liquids:maintain aspiration precautions. etc. 05/17 Attending progress note includes : Plan: CT Chest multifocal PNA, Atb cooverage, f/u ID, DuoNeb, Mucumyst, Mucinex, continue rest of Tx The patient's Clinical Indicators include: ----- Query created by: Brisa Pizano on 05/18/2018 11:03 AM Electronically signed by: Ramiro Hernández MD 05/18/2018 2:12 PM
[2018-05-18] MEDS: Clindamycin 600mg/50ml D5W 600 MG/50 ML VIAL IVPB SCH ×2 (14:58→17:54)
--- NOTE | 2018-05-18 15:03 | CP.PCM.PN ---
Subjective - Date & Time of Evaluation Date of Evaluation: 05/18/18 Time of Evaluation: 13:20 - Subjective Subjective: F/U UTI. Asp PNA. Pt awake, slow mentation, confused, answering simple questions. Objective - Vital Signs/Intake and Output Vital Signs (last 24 hours): Temp Pulse Resp BP Pulse Ox 99.3 F 72 18 128/70 93 L 05/18/18 08:25 05/18/18 14:44 05/18/18 09:30 05/18/18 09:30 05/18/18 14:44 - Medications Medications: Current Medications Acetaminophen (Tylenol 325 Mg Supp) 325 mg MA Q6 PRN PRN Reason: Fever >100.4 F Acetylcysteine (Mucomyst 10% 4ml) 2 ml IH RQ8 [facility] Last Admin: 05/18/18 07:35 Dose: 2 ml Albuterol/Ipratropium (Duoneb 3 Mg/0.5 Mg (3 Ml) Ud) 3 ml IH RQ8 [facility] Last Admin: 05/18/18 07:34 Dose: 3 ml Alendronate Sodium (Fosamax) 70 mg PO FR [facility] Artificial Tears (Artificial Tears) 2 drop OU Q6 [facility] Last Admin: 05/18/18 09:12 Dose: 2 drop Bisacodyl (Dulcolax) 10 mg MA DAILY PRN PRN Reason: No bowel movement after 3 days Calcium Carbonate (Oscal) 500 mg PO BID [facility] Last Admin: 05/18/18 09:15 Dose: 500 mg Cholecalciferol (Vitamin D) 1,000 intlu PO BID [facility] Last Admin: 05/18/18 09:16 Dose: 1,000 intlu Donepezil HCl (Aricept) 5 mg PO HS [facility] Last Admin: 05/17/18 21:18 Dose: 5 mg Enoxaparin Sodium (Lovenox) 40 mg SC DAILY [facility]; Protocol Last Admin: 05/18/18 09:13 Dose: 40 mg Fluticasone Propionate (Flonase) 2 spr ASAD DAILY [facility] Last Admin: 05/18/18 09:12 Dose: 2 spr Dextrose/Sodium Chloride (Dextrose 5%/0.9% Ns 1000 Ml) 1,000 mls @ 80 mls/hr IV .[id number] [facility] Stop: 05/19/18 00:39 Last Admin: 05/18/18 02:12 Dose: Not Given Gentamicin Sulfate/Sodium Chloride (Gentamicin 80mg/50ml Ns) 80 mg in 50 mls @ 49.02 mls/hr IVPB Q8H [facility]; Protocol Last Admin: 05/18/18 09:12 Dose: 49.02 mls/hr Vancomycin HCl 1 gm/ Sodium (Chloride) 250 mls @ 166.667 mls/hr IVPB Q12H [facility]; Protocol Last Admin: 05/18/18 11:32 Dose: 166.667 mls/hr Clindamycin Phosphate (Cleocin) 600 mg in 50 mls @ 100 mls/hr IVPB Q8H [facility]; Protocol Last Admin: 05/18/18 14:58 Dose: 100 mls/hr Lisinopril (Zestril) 5 mg PO HS [facility] Last Admin: 05/17/18 21:19 Dose: 5 mg Memantine (Namenda) 5 mg PO Q12 [facility] Last Admin: 05/18/18 09:14 Dose: 5 mg Multivitamins/Minerals (Therapeutic-M Tab) 1 tab PO DAILY [facility] Last Admin: 05/18/18 09:16 Dose: 1 tab Pantoprazole Sodium (Protonix Ec Tab) 40 mg PO DAILY [facility] Last Admin: 05/18/18 09:15 Dose: 40 mg Potassium Chloride (K-Dur 20 Meq Er Tab) 40 meq PO DAILY [facility] Last Admin: 05/18/18 11:56 Dose: 40 meq Senna/Docusate Sodium (Senokot S 50 Mg-8.6 Mg) 1 tab PO HS [facility] Last Admin: 05/17/18 21:18 Dose: 1 tab Tamsulosin HCl (Flomax) 0.4 mg PO QPM [facility] Last Admin: 05/17/18 17:21 Dose: 0.4 mg Vitamin A (Vitamin A & D Oint Ud Foilpak) 1 ea TOP BID [facility] Last Admin: 05/18/18 09:16 Dose: 1 ea - Labs Labs: 05/17/18 09:07 05/18/18 10:26 PT 15.7 Seconds (9.8-13.1) H 05/12/18 07:50 INR 1.4 05/12/18 07:50 APTT 34.4 Seconds (25.6-37.1) 05/12/18 07:50 - Constitutional Appears: Chronically Ill - Head Exam Head Exam: NORMAL INSPECTION - Eye Exam Additional comments: L eye deviated laterally - ENT Exam ENT Exam: Normal Exam - Neck Exam Neck Exam: Normal Inspection - Respiratory Exam Respiratory Exam: Decreased Breath Sounds, Rhonchi (scattered) - Cardiovascular Exam Cardiovascular Exam: REGULAR RHYTHM - GI/Abdominal Exam GI & Abdominal Exam: Soft, Normal Bowel Sounds - Extremities Exam Extremities Exam: Normal Inspection - Back Exam Additional comments: Sacral area red - Neurological Exam Neurological Exam: Awake Additional comments: Confused, disoriented, open eyes , answer simple questions, generalized weakness, no focal motor/sensory deficit. - Psychiatric Exam Psychiatric exam: Anxious - Skin Skin Exam: Warm Assessment and Plan (1) Aspiration pneumonia Assessment & Plan: Multifocal Status: Acute (2) E. coli UTI Status: Acute (3) Fever Status: Resolved (4) Sepsis syndrome Status: Acute (5) Hypoxemia Status: Acute (6) Dementia Status: Chronic (7) HTN (hypertension) Status: Chronic (8) DMII (diabetes mellitus, type 2) Status: Chronic - Assessment and Plan (Free Text) Plan: ABG PO2 47-48 doing well on NC, 4 L/M, Sat 94%. Ba swallow no aspiration. Continue Vanco, Clinda and rest if Tx, f/u ID.
[2018-05-18] MEDS: Docusate-Senna 50 mg-8.6 mg Tab PO SCH (21:18)
[2018-05-19] MEDS: Clindamycin 600mg/50ml D5W 600 MG/50 ML VIAL IVPB SCH ×2 (02:34→11:19)
[2018-05-19] MEDS: Gentamicin 80mg/50ml NS 80 MG/50 ML BAG IVPB SCH (06:02)
[2018-05-19] MEDS: Artificial Tears Opht Soln OU SCH ×4 (06:02→22:30)
[2018-05-19 06:49] LABS: HEMOGLOBIN 8.9 g/dL (12.0-18.0); MEAN CELL VOLUME 83.5 fl (80.0-94.0); MEAN CORPUSCULAR HEMOGLOBIN 27.4 pg (27.0-31.0); MEAN CORPUSCULAR HGB CONC 32.9 g/dL (33.0-37.0); RBC 3.25 Mil/uL (4.40-5.90); RED CELL DISTRIBUTION WIDTH 14.9 % (11.5-14.5); WHITE BLOOD COUNT 7.6 K/uL (4.8-10.8)
[2018-05-19 07:09] LABS: BLOOD UREA NITROGEN 22 mg/dl (9-20); CALCIUM 8.7 mg/dL (8.4-10.2); GFR NON-AFRICAN AMERICAN > 60
[2018-05-19] MEDS: Acetylcysteine 10% 4 ML IH SCH ×3 (07:54→23:46)
[2018-05-19] MEDS: Albuterol-Ipratrop 3 mg / 0.5 (3 ml) UD IH SCH ×3 (07:54→23:47)
[2018-05-19] MEDS: Potassium Chloride 20 mEq ER Tab PO SCH (08:55)
[2018-05-19] MEDS: Cholecalciferol 1,000 INTLU TAB PO SCH ×2 (08:58→16:53)
[2018-05-19] MEDS: Vitamins A & D Oint UD Foilpak TOP SCH ×2 (08:58→16:53)
[2018-05-19] MEDS: Enoxaparin 40 mg Syringe SC SCH (08:58)
[2018-05-19] MEDS: Multivitamin With Minerals Tab PO SCH (08:59)
[2018-05-19] MEDS: Pantoprazole 40 mg EC Tab PO SCH (08:59)
[2018-05-19] MEDS ORDERED: Barium Sulfate Susp 0.1% w/v, 0.1% w/w 450 mL Bottle PO ONE (10:19)
[2018-05-19] MEDS ORDERED: Meropenem 500 MG in Sodium Chloride 0.9% 100 ML IVPB SCH (11:45)
[2018-05-19] MEDS: Dextrose 5%/0.45% NS 1,000 ML IV SCH (12:10)
--- NOTE | 2018-05-19 14:51 | CP.PCM.PN ---
Subjective - Date & Time of Evaluation Date of Evaluation: 05/19/18 Time of Evaluation: 13:10 - Subjective Subjective: F/U UTI. Asp PNA No A/D, occasional cough unable to expectorate phlegms. Slow mentation Objective - Vital Signs/Intake and Output Vital Signs (last 24 hours): Temp Pulse Resp BP Pulse Ox 98.5 F 97 H 19 151/71 H 96 05/19/18 08:31 05/19/18 08:31 05/19/18 08:31 05/19/18 08:31 05/19/18 08:31 - Medications Medications: Current Medications Acetaminophen (Tylenol 325 Mg Supp) 325 mg IN Q6 PRN PRN Reason: Fever >100.4 F Acetylcysteine (Mucomyst 10% 4ml) 2 ml IH RQ8 [facility] Last Admin: 05/19/18 07:54 Dose: 2 ml Albuterol/Ipratropium (Duoneb 3 Mg/0.5 Mg (3 Ml) Ud) 3 ml IH RQ8 [facility] Last Admin: 05/19/18 07:54 Dose: 3 ml Alendronate Sodium (Fosamax) 70 mg PO FR [facility] Artificial Tears (Artificial Tears) 2 drop OU Q6 [facility] Last Admin: 05/19/18 09:10 Dose: 2 drop Bisacodyl (Dulcolax) 10 mg IN DAILY PRN PRN Reason: No bowel movement after 3 days Calcium Carbonate (Oscal) 500 mg PO BID [facility] Last Admin: 05/19/18 08:59 Dose: 500 mg Cholecalciferol (Vitamin D) 1,000 intlu PO BID [facility] Last Admin: 05/19/18 08:58 Dose: 1,000 intlu Donepezil HCl (Aricept) 5 mg PO HS [facility] Last Admin: 05/18/18 21:18 Dose: 5 mg Enoxaparin Sodium (Lovenox) 40 mg SC DAILY [facility]; Protocol Last Admin: 05/19/18 08:58 Dose: 40 mg Fluticasone Propionate (Flonase) 2 spr ASAD DAILY [facility] Last Admin: 05/19/18 08:58 Dose: 2 spr Meropenem 500 mg/ Sodium (Chloride) 100 mls @ 100 mls/hr IVPB Q8 [facility]; Protocol Last Admin: 05/19/18 14:18 Dose: 100 mls/hr Dextrose/Sodium Chloride (Dextrose 5%/0.45% Ns 1000 Ml) 1,000 mls @ 80 mls/hr IV .[id number] [facility] Stop: 05/20/18 11:52 Last Admin: 05/19/18 12:10 Dose: 80 mls/hr Lisinopril (Zestril) 5 mg PO HS [facility] Last Admin: 05/18/18 21:18 Dose: 5 mg Memantine (Namenda) 5 mg PO Q12 [facility] Last Admin: 05/19/18 08:59 Dose: 5 mg Multivitamins/Minerals (Therapeutic-M Tab) 1 tab PO DAILY [facility] Last Admin: 05/19/18 08:59 Dose: 1 tab Pantoprazole Sodium (Protonix Ec Tab) 40 mg PO DAILY [facility] Last Admin: 05/19/18 08:59 Dose: 40 mg Potassium Chloride (K-Dur 20 Meq Er Tab) 40 meq PO DAILY [facility] Last Admin: 05/19/18 08:55 Dose: 40 meq Senna/Docusate Sodium (Senokot S 50 Mg-8.6 Mg) 1 tab PO HS [facility] Last Admin: 05/18/18 21:18 Dose: 1 tab Tamsulosin HCl (Flomax) 0.4 mg PO QPM [facility] Last Admin: 05/18/18 17:36 Dose: 0.4 mg Vitamin A (Vitamin A & D Oint Ud Foilpak) 1 ea TOP BID [facility] Last Admin: 05/19/18 08:58 Dose: 1 ea - Labs Labs: 05/19/18 06:00 05/19/18 06:00 PT 15.7 Seconds (9.8-13.1) H 05/12/18 07:50 INR 1.4 05/12/18 07:50 APTT 34.4 Seconds (25.6-37.1) 05/12/18 07:50 - Constitutional Appears: Chronically Ill - Head Exam Head Exam: NORMAL INSPECTION - Eye Exam Additional comments: L eye deviated laterally - ENT Exam ENT Exam: Normal Exam - Neck Exam Neck Exam: Normal Inspection - Respiratory Exam Respiratory Exam: Decreased Breath Sounds, Rhonchi - Cardiovascular Exam Cardiovascular Exam: REGULAR RHYTHM - GI/Abdominal Exam GI & Abdominal Exam: Soft, Normal Bowel Sounds - Extremities Exam Extremities Exam: Normal Inspection - Neurological Exam Additional comments: yes open, Confused, answer simple questions, generalized weakness, no focal motor deficit - Psychiatric Exam Psychiatric exam: Anxious - Skin Skin Exam: Warm Assessment and Plan (1) Aspiration pneumonia Status: Acute (2) E. coli UTI Status: Acute (3) Fever Status: Resolved (4) Sepsis syndrome Status: Acute (5) Hypoxemia Status: Acute (6) Dementia Status: Chronic (7) HTN (hypertension) Status: Chronic (8) DMII (diabetes mellitus, type 2) Status: Chronic - Assessment and Plan (Free Text) Plan: Continue Merren, Duoneb, Mucomyst, , Lovenox, K-Dur and rest of Tx., Hypoxemia, monitor POx, f/u ABG R/A
--- NOTE | 2018-05-19 15:37 | RAD ---
Date of service: 05/19/2018 PROCEDURE: Modified barium swallow study. HISTORY: Dysphagia COMPARISON: None available. TECHNIQUE: Under fluoroscopic guidance, barium meals of various consistency were administered to the patient by the speech pathologist. 80.4 sec of fluoro time was utilized with a cumulative radiation dose of 5.97 mGy. FINDINGS: No penetration or aspiration was observed during this study. IMPRESSION: No penetration or aspiration observed. Please refer to the detailed report and recommendations of the speech pathologist.
--- NOTE | 2018-05-19 15:48 | CP.PCM.PN ---
Subjective - Date & Time of Evaluation Date of Evaluation: 05/19/18 Time of Evaluation: 13:00 - Subjective Subjective: ID note- Pt. seen and examined. resting comfortably in bed. opens his eyes and responds to some commands. as per PCP he aspirates and at risk for aspiration pneumonitis. Objective - Vital Signs/Intake and Output Vital Signs (last 24 hours): Temp Pulse Resp BP Pulse Ox 98.5 F 97 H 19 151/71 H 96 05/19/18 09:00 05/19/18 09:00 05/19/18 09:00 05/19/18 09:00 05/19/18 09:00 - Medications Medications: Current Medications Acetaminophen (Tylenol 325 Mg Supp) 325 mg DE Q6 PRN PRN Reason: Fever >100.4 F Acetylcysteine (Mucomyst 10% 4ml) 2 ml IH RQ8 KEN Last Admin: 05/19/18 07:54 Dose: 2 ml Albuterol/Ipratropium (Duoneb 3 Mg/0.5 Mg (3 Ml) Ud) 3 ml IH RQ8 KEN Last Admin: 05/19/18 07:54 Dose: 3 ml Alendronate Sodium (Fosamax) 70 mg PO FR KEN Artificial Tears (Artificial Tears) 2 drop OU Q6 KEN Last Admin: 05/19/18 09:10 Dose: 2 drop Bisacodyl (Dulcolax) 10 mg DE DAILY PRN PRN Reason: No bowel movement after 3 days Calcium Carbonate (Oscal) 500 mg PO BID [facility] Last Admin: 05/19/18 08:59 Dose: 500 mg Cholecalciferol (Vitamin D) 1,000 intlu PO BID KEN Last Admin: 05/19/18 08:58 Dose: 1,000 intlu Donepezil HCl (Aricept) 5 mg PO HS KEN Last Admin: 05/18/18 21:18 Dose: 5 mg Enoxaparin Sodium (Lovenox) 40 mg SC DAILY KEN; Protocol Last Admin: 05/19/18 08:58 Dose: 40 mg Fluticasone Propionate (Flonase) 2 spr ASAD DAILY KEN Last Admin: 05/19/18 08:58 Dose: 2 spr Meropenem 500 mg/ Sodium (Chloride) 100 mls @ 100 mls/hr IVPB Q8 KEN; Protocol Last Admin: 05/19/18 14:18 Dose: 100 mls/hr Dextrose/Sodium Chloride (Dextrose 5%/0.45% Ns 1000 Ml) 1,000 mls @ 80 mls/hr IV .[id number] [facility] Stop: 05/20/18 11:52 Last Admin: 05/19/18 12:10 Dose: 80 mls/hr Lisinopril (Zestril) 5 mg PO HS [facility] Last Admin: 05/18/18 21:18 Dose: 5 mg Memantine (Namenda) 5 mg PO Q12 [facility] Last Admin: 05/19/18 08:59 Dose: 5 mg Multivitamins/Minerals (Therapeutic-M Tab) 1 tab PO DAILY [facility] Last Admin: 05/19/18 08:59 Dose: 1 tab Pantoprazole Sodium (Protonix Ec Tab) 40 mg PO DAILY [facility] Last Admin: 05/19/18 08:59 Dose: 40 mg Potassium Chloride (K-Dur 20 Meq Er Tab) 40 meq PO DAILY [facility] Last Admin: 05/19/18 08:55 Dose: 40 meq Senna/Docusate Sodium (Senokot S 50 Mg-8.6 Mg) 1 tab PO HS [facility] Last Admin: 05/18/18 21:18 Dose: 1 tab Tamsulosin HCl (Flomax) 0.4 mg PO QPM [facility] Last Admin: 05/18/18 17:36 Dose: 0.4 mg Vitamin A (Vitamin A & D Oint Ud Foilpak) 1 ea TOP BID [facility] Last Admin: 05/19/18 08:58 Dose: 1 ea - Labs Labs: - Additional Findings Additional findings: - Constitutional Appears: No Acute Distress - Head Exam Head Exam: ATRAUMATIC - Eye Exam Eye Exam: EOMI - ENT Exam Additional comments: dry oropharynx - Neck Exam Neck exam: Positive for: Full Rom - Respiratory Exam Additional comments: no wheezing no crackles - Cardiovascular Exam Cardiovascular Exam: RRR, +S1, +S2 - GI/Abdominal Exam GI & Abdominal Exam: Normal Bowel Sounds, Soft Additional comments: NT, ND - Extremities Exam Extremities exam: Positive for: normal inspection - Neurological Exam Additional comments: awake and follows some simple commands Laboratory Results - last 72 hr 05/16/18 05/16/18 05/17/18 15:51 21:22 05:35 WBC RBC Hgb Hct MCV MCH MCHC RDW Plt Count pCO2 pO2 HCO3 ABG pH ABG Total CO2 ABG O2 Saturation ABG O2 Content ABG Base Excess ABG Hemoglobin ABG Carboxyhemoglobin POC ABG HHb (Measured) ABG Methemoglobin ABG O2 Capacity Forrest Test A-a O2 Difference Hgb O2 Saturation FiO2 Sodium Potassium Chloride Carbon Dioxide Anion Gap BUN Creatinine Est GFR ( Amer) Est GFR (Non-Af Amer) POC Glucose (mg/dL) 127 H 124 H 124 H Random Glucose Calcium Total Bilirubin AST ALT Alkaline Phosphatase Total Protein Albumin Globulin Albumin/Globulin Ratio Gentamicin Trough 05/17/18 05/17/18 05/17/18 09:07 09:07 09:07 WBC 10.3 RBC 3.88 L Hgb 10.5 L Hct 32.4 L MCV 83.4 MCH 27.1 MCHC 32.4 L RDW 15.4 H Plt Count 219 pCO2 pO2 HCO3 ABG pH ABG Total CO2 ABG O2 Saturation ABG O2 Content ABG Base Excess ABG Hemoglobin ABG Carboxyhemoglobin POC ABG HHb (Measured) ABG Methemoglobin ABG O2 Capacity Forrest Test A-a O2 Difference Hgb O2 Saturation FiO2 Sodium 146 Potassium 3.3 L Chloride 106 Carbon Dioxide 27 Anion Gap 16 BUN 26 H Creatinine 0.9 Est GFR ( Amer) > 60 Est GFR (Non-Af Amer) > 60 POC Glucose (mg/dL) Random Glucose 147 H Calcium 8.5 Total Bilirubin 0.8 AST 69 H ALT 47 Alkaline Phosphatase 61 Total Protein 6.7 Albumin 3.3 L Globulin 3.5 Albumin/Globulin Ratio 0.9 L Gentamicin Trough < 0.6 05/17/18 05/17/18 05/17/18 11:00 13:41 15:51 WBC RBC Hgb Hct MCV MCH MCHC RDW Plt Count pCO2 30 L pO2 48 L HCO3 29.1 H ABG pH 7.57 H ABG Total CO2 28.4 H ABG O2 Saturation 90.0 L ABG O2 Content 13.0 L ABG Base Excess 5.6 H ABG Hemoglobin 10.6 L ABG Carboxyhemoglobin 1.6 H POC ABG HHb (Measured) 9.7 H ABG Methemoglobin 1.2 ABG O2 Capacity 14.4 L Forrest Test Yes A-a O2 Difference 64.0 Hgb O2 Saturation 87.4 L FiO2 21.0 Sodium Potassium Chloride Carbon Dioxide Anion Gap BUN Creatinine Est GFR ( Amer) Est GFR (Non-Af Amer) POC Glucose (mg/dL) 165 H 196 H Random Glucose Calcium Total Bilirubin AST ALT Alkaline Phosphatase Total Protein Albumin Globulin Albumin/Globulin Ratio Gentamicin Trough 05/17/18 05/18/18 05/18/18 21:50 06:00 10:26 WBC RBC Hgb Hct MCV MCH MCHC RDW Plt Count pCO2 pO2 HCO3 ABG pH ABG Total CO2 ABG O2 Saturation ABG O2 Content ABG Base Excess ABG Hemoglobin ABG Carboxyhemoglobin POC ABG HHb (Measured) ABG Methemoglobin ABG O2 Capacity Forrest Test A-a O2 Difference Hgb O2 Saturation FiO2 Sodium 147 Potassium 3.4 L Chloride 109 H Carbon Dioxide 25 Anion Gap 16 BUN 24 H Creatinine 0.8 Est GFR ( Amer) > 60 Est GFR (Non-Af Amer) > 60 POC Glucose (mg/dL) 251 H 148 H Random Glucose 227 H Calcium 8.7 Total Bilirubin AST ALT Alkaline Phosphatase Total Protein Albumin Globulin Albumin/Globulin Ratio Gentamicin Trough 05/18/18 05/18/18 05/18/18 11:06 16:02 21:58 WBC RBC Hgb Hct MCV MCH MCHC RDW Plt Count pCO2 pO2 HCO3 ABG pH ABG Total CO2 ABG O2 Saturation ABG O2 Content ABG Base Excess ABG Hemoglobin ABG Carboxyhemoglobin POC ABG HHb (Measured) ABG Methemoglobin ABG O2 Capacity Forrest Test A-a O2 Difference Hgb O2 Saturation FiO2 Sodium Potassium Chloride Carbon Dioxide Anion Gap BUN Creatinine Est GFR ( Amer) Est GFR (Non-Af Amer) POC Glucose (mg/dL) 198 H 167 H 179 H Random Glucose Calcium Total Bilirubin AST ALT Alkaline Phosphatase Total Protein Albumin Globulin Albumin/Globulin Ratio Gentamicin Trough 05/19/18 05/19/18 05/19/18 05:32 06:00 06:00 WBC 7.6 RBC 3.25 L Hgb 8.9 L Hct 27.1 L MCV 83.5 MCH 27.4 MCHC 32.9 L RDW 14.9 H Plt Count 196 pCO2 pO2 HCO3 ABG pH ABG Total CO2 ABG O2 Saturation ABG O2 Content ABG Base Excess ABG Hemoglobin ABG Carboxyhemoglobin POC ABG HHb (Measured) ABG Methemoglobin ABG O2 Capacity Forrest Test A-a O2 Difference Hgb O2 Saturation FiO2 Sodium 147 Potassium 3.5 L Chloride 110 H Carbon Dioxide 27 Anion Gap 14 BUN 22 H Creatinine 0.7 L Est GFR ( Amer) > 60 Est GFR (Non-Af Amer) > 60 POC Glucose (mg/dL) 162 H Random Glucose 156 H Calcium 8.7 Total Bilirubin AST ALT Alkaline Phosphatase Total Protein Albumin Globulin Albumin/Globulin Ratio Gentamicin Trough Microbiology 05/12/18 07:50 Blood Blood Culture - Final NO GROWTH AFTER 5 DAYS 05/12/18 07:50 Blood Gram Stain - Final TEST NOT PERFORMED 05/12/18 Unknown Blood Blood Culture - Final NO GROWTH AFTER 5 DAYS 05/12/18 Unknown Blood Gram Stain - Final TEST NOT PERFORMED 05/12/18 08:40 Urine,Catheterized Urine Culture - Final Escherichia Coli Accession No. : [id number] Patient Name / ID : TANNER BOWIE / [id number] Exam Date : 05/17/2018 12:32:30 ( Approved ) Study Comment : Sex / Age : M / 82Y Creator : Lanre Dunn MD Dictator : Lanre Dunn MD Product Test Specialist : [employer] Operator : Lanre Dunn MD Approver2 : Report Date : 05/17/2018 16:45:36 My Comment : Date of service: 05/17/2018 PROCEDURE: CT Chest without contrast HISTORY: Rule out pneumonia COMPARISON: Comparison made with chest radiograph earlier same day. TECHNIQUE: Contiguous axial images were obtained through the chest without intravenous contrast enhancement. Sagittal and coronal reconstructions were performed. Radiation dose: Total exam DLP = 512.3 mGy-cm. This CT exam was performed using one or more of the following dose reduction techniques: Automated exposure control, adjustment of the mA and/or kV according to patient size, and/or use of iterative reconstruction technique. FINDINGS: LUNGS: Large area of dense consolidation with few air bronchograms left posteromedial lower lung base consistent with atelectasis however superimposed infiltrate not excluded. There are also patchy multifocal infiltrate changes seen throughout the right upper as well as middle and lower lobes. MEDIASTINUM: The heart remains enlarged. No significant pericardial effusion. Ascending thoracic aorta measures approximately 3.8 cm and descending thoracic aorta measures approximately 2.7 cm. Mild partially calcified atherosclerotic plaque seen along the thoracic aorta. Pulmonary trunk measures approximately 3.2 cm. There are multiple small to mildly enlarged mediastinal lymph nodes the largest in the right para sagittal pretracheal/precarinal region measuring approximately 2.5 cm though this lymph node does exhibit a fatty center. Evaluation for hilar adenopathy is limited due to the lack of circulating intravenous contrast material. Trachea is midline and patent with no large central endoluminal lesions. The esophagus is markedly distended throughout with a large amount of layering fluid and debris which extends to the level of the thoracic inlet. Findings consistent with dysmotility and/or reflux . Endoscopy follow-up recommended to exclude a endoluminal of or invasive wall lesion including but not limited to esophageal carcinoma. PLEURA: No significant pleural fluid. No pneumothorax. BONES: Multilevel degenerative spondylosis of the thoracic lower cervical and upper lumbar spine. UPPER ABDOMEN: Grossly unremarkable. OTHER FINDINGS: None. IMPRESSION: Large area of dense consolidation with few air bronchograms left posteromedial lower lung base consistent with atelectasis however superimposed infiltrate not excluded. There are also patchy multifocal infiltrate changes seen throughout the right upper as well as middle and lower lobes. Markedly distended esophagus on with large amount of layering fluid and debris that extends to the near the thoracic inlet. Findings may represent dysmotility and/or reflux however endoscopy follow-up recommended to exclude an endoluminal on or esophageal wall lesion including but not limited to esophagitis carcinoma. Multiple small to mildly enlarged mediastinal lymph nodes. Cardiomegaly. Assessment and Plan (1) UTI (urinary tract infection) Status: Deleted (2) Sepsis syndrome Status: Acute (3) Fever Status: Resolved (4) Hypoxemia Status: Acute - Assessment and Plan (Free Text) Assessment: A/P- 82 year old [place] resident male with dementia, admitted with fever. afebrile past 4 days clinically improved. UA- POs LE, neg Nitrates urine cx- E.Coli pansensitive blood cx- neg x [address] report noted. normal wbc. PLan- had completed 3 days of IV meropbnem and vanco. in light of the chest CT report and his risk of aspiration advise to resume meropnem to cover for gram neg and anaerobes for 5 days. monitor aspiration precautions. All above d/w .
[2018-05-19] MEDS: Docusate-Senna 50 mg-8.6 mg Tab PO SCH (22:12)
[2018-05-19] MEDS: Meropenem 500 MG in Sodium Chloride 0.9% 100 ML IVPB SCH (22:13)
[2018-05-20] MEDS: Dextrose 5%/0.45% NS 1,000 ML IV SCH (00:51)
[2018-05-20] MEDS: Artificial Tears Opht Soln OU SCH ×4 (03:29→21:39)
[2018-05-20] MEDS: Meropenem 500 MG in Sodium Chloride 0.9% 100 ML IVPB SCH ×3 (05:43→21:29)
[2018-05-20] MEDS: Acetylcysteine 10% 4 ML IH SCH ×3 (07:34→23:53)
[2018-05-20] MEDS: Albuterol-Ipratrop 3 mg / 0.5 (3 ml) UD IH SCH ×3 (07:34→23:53)
--- NOTE | 2018-05-20 08:57 | CARD ---
APPROVED REPORT Date of service: 05/18/2018 EKG Measurement Heart [id number] <Conclusion> Sinus rhythm with premature atrial complexes Otherwise normal ECG
[2018-05-20] MEDS: Potassium Chloride 20 mEq ER Tab PO SCH (09:56)
[2018-05-20] MEDS: Enoxaparin 40 mg Syringe SC SCH (09:56)
[2018-05-20] MEDS: Pantoprazole 40 mg EC Tab PO SCH (09:57)
[2018-05-20] MEDS: Multivitamin With Minerals Tab PO SCH (09:58)
[2018-05-20] MEDS: Cholecalciferol 1,000 INTLU TAB PO SCH ×2 (09:58→17:20)
[2018-05-20] MEDS: Vitamins A & D Oint UD Foilpak TOP SCH ×2 (09:58→17:20)
[2018-05-20 10:18] LABS: ABG ALLEN TEST YES; ARTERIAL BLOOD GAS HCO3 28.1 mmol/L (21-28); ARTERIAL BLOOD GAS HEMOGLOBIN 10.8 g/dL (11.7-17.4); ARTERIAL BLOOD GAS O2 CAPACITY 14.7 mL/dL (16-24); ARTERIAL BLOOD GAS O2 CONTENT 14.1 ML/dL (15-23); ARTERIAL BLOOD GAS O2 SAT 95.9 % (95-98); ARTERIAL BLOOD GAS PCO2 31 mm/Hg (35-45); ARTERIAL BLOOD GAS PH 7.54 (7.35-7.45); ARTERIAL BLOOD GAS PO2 64 mm/Hg (80-100); ARTERIAL BLOOD GAS TCO2 27.5 mmol/L (22-28)
--- NOTE | 2018-05-20 12:57 | CP.PCM.PN ---
Subjective - Date & Time of Evaluation Date of Evaluation: 05/20/18 Time of Evaluation: 12:57 - Subjective Subjective: ID Note- Patietn seen and examined today. he is awake and not in any distress. he spiked temp today. as per nurse no diarrhea. there is no flowers. one of the IVL not being used . Objective - Vital Signs/Intake and Output Vital Signs (last 24 hours): Temp Pulse Resp BP Pulse Ox 97.6 F 99 H 20 146/80 96 05/20/18 08:58 05/20/18 08:58 05/20/18 08:58 05/20/18 08:58 05/20/18 08:58 - Medications Medications: Current Medications Acetaminophen (Tylenol 325 Mg Supp) 325 mg HI Q6 PRN PRN Reason: Fever >100.4 F Acetylcysteine (Mucomyst 10% 4ml) 2 ml IH RQ8 KEN Last Admin: 05/20/18 07:34 Dose: 2 ml Albuterol/Ipratropium (Duoneb 3 Mg/0.5 Mg (3 Ml) Ud) 3 ml IH RQ8 KEN Last Admin: 05/20/18 07:34 Dose: 3 ml Alendronate Sodium (Fosamax) 70 mg PO FR KEN Artificial Tears (Artificial Tears) 2 drop OU Q6 KEN Last Admin: 05/20/18 09:55 Dose: 2 drop Bisacodyl (Dulcolax) 10 mg HI DAILY PRN PRN Reason: No bowel movement after 3 days Calcium Carbonate (Oscal) 500 mg PO BID [facility] Last Admin: 05/20/18 09:57 Dose: 500 mg Cholecalciferol (Vitamin D) 1,000 intlu PO BID KEN Last Admin: 05/20/18 09:58 Dose: 1,000 intlu Dimethicone (Proshield Plus Skin Protectant) 1 applic TOP Q8 KEN Donepezil HCl (Aricept) 5 mg PO HS KEN Last Admin: 05/19/18 22:14 Dose: 5 mg Enoxaparin Sodium (Lovenox) 40 mg SC DAILY KEN; Protocol Fluticasone Propionate (Flonase) 2 spr ASAD DAILY KEN Last Admin: 05/20/18 09:55 Dose: 2 spr Meropenem 500 mg/ Sodium (Chloride) 100 mls @ 100 mls/hr IVPB Q8@0600,1400,2200 [facility]; Protocol Last Admin: 05/20/18 05:43 Dose: 100 mls/hr Lisinopril (Zestril) 5 mg PO HS [facility] Last Admin: 05/19/18 22:12 Dose: 5 mg Memantine (Namenda) 5 mg PO Q12 [facility] Last Admin: 05/20/18 09:56 Dose: 5 mg Multivitamins/Minerals (Therapeutic-M Tab) 1 tab PO DAILY [facility] Last Admin: 05/20/18 09:58 Dose: 1 tab Nystatin (Nystop Topical Powder) 1 applic TOP Q8H [facility] Last Admin: 05/20/18 11:43 Dose: 1 applic Pantoprazole Sodium (Protonix Ec Tab) 40 mg PO DAILY [facility] Last Admin: 05/20/18 09:57 Dose: 40 mg Potassium Chloride (K-Dur 20 Meq Er Tab) 40 meq PO DAILY [facility] Last Admin: 05/20/18 09:56 Dose: 40 meq Senna/Docusate Sodium (Senokot S 50 Mg-8.6 Mg) 1 tab PO HS [facility] Last Admin: 05/19/18 22:12 Dose: 1 tab Tamsulosin HCl (Flomax) 0.4 mg PO QPM [facility] Last Admin: 05/19/18 17:00 Dose: 0.4 mg Vitamin A (Vitamin A & D Oint Ud Foilpak) 1 ea TOP BID [facility] Last Admin: 05/20/18 09:58 Dose: 1 ea - Labs Labs: - Additional Findings Additional findings: - Constitutional Appears: No Acute Distress - Head Exam Head Exam: ATRAUMATIC - Eye Exam Eye Exam: EOMI - ENT Exam Additional comments: dry oropharynx - Neck Exam Neck exam: Positive for: Full Rom - Respiratory Exam Additional comments: no wheezing no crackles - Cardiovascular Exam Cardiovascular Exam: RRR, +S1, +S2 - GI/Abdominal Exam GI & Abdominal Exam: Normal Bowel Sounds, Soft Additional comments: NT, ND - Extremities Exam Extremities exam: Positive for: normal inspection - Neurological Exam Additional comments: awake and follows some simple commands lines- has 2 peripheral IVL and no erythema or swelling at either one Laboratory Results - last 72 hr 05/17/18 05/17/18 05/17/18 09:07 15:51 21:50 WBC RBC Hgb Hct MCV MCH MCHC RDW Plt Count pCO2 pO2 HCO3 ABG pH ABG Total CO2 ABG O2 Saturation ABG O2 Content ABG Base Excess ABG Hemoglobin ABG Carboxyhemoglobin POC ABG HHb (Measured) ABG Methemoglobin ABG O2 Capacity Forrest Test A-a O2 Difference Hgb O2 Saturation FiO2 Sodium Potassium Chloride Carbon Dioxide Anion Gap BUN Creatinine Est GFR ( Amer) Est GFR (Non-Af Amer) POC Glucose (mg/dL) 196 H 251 H Random Glucose Calcium Gentamicin Trough < 0.6 05/18/18 05/18/18 05/18/18 06:00 10:26 11:06 WBC RBC Hgb Hct MCV MCH MCHC RDW Plt Count pCO2 pO2 HCO3 ABG pH ABG Total CO2 ABG O2 Saturation ABG O2 Content ABG Base Excess ABG Hemoglobin ABG Carboxyhemoglobin POC ABG HHb (Measured) ABG Methemoglobin ABG O2 Capacity Forrest Test A-a O2 Difference Hgb O2 Saturation FiO2 Sodium 147 Potassium 3.4 L Chloride 109 H Carbon Dioxide 25 Anion Gap 16 BUN 24 H Creatinine 0.8 Est GFR ( Amer) > 60 Est GFR (Non-Af Amer) > 60 POC Glucose (mg/dL) 148 H 198 H Random Glucose 227 H Calcium 8.7 Gentamicin Trough 05/18/18 05/18/18 05/19/18 16:02 21:58 05:32 WBC RBC Hgb Hct MCV MCH MCHC RDW Plt Count pCO2 pO2 HCO3 ABG pH ABG Total CO2 ABG O2 Saturation ABG O2 Content ABG Base Excess ABG Hemoglobin ABG Carboxyhemoglobin POC ABG HHb (Measured) ABG Methemoglobin ABG O2 Capacity Forrest Test A-a O2 Difference Hgb O2 Saturation FiO2 Sodium Potassium Chloride Carbon Dioxide Anion Gap BUN Creatinine Est GFR ( Amer) Est GFR (Non-Af Amer) POC Glucose (mg/dL) 167 H 179 H 162 H Random Glucose Calcium Gentamicin Trough 05/19/18 05/19/18 05/19/18 06:00 06:00 15:49 WBC 7.6 RBC 3.25 L Hgb 8.9 L Hct 27.1 L MCV 83.5 MCH 27.4 MCHC 32.9 L RDW 14.9 H Plt Count 196 pCO2 pO2 HCO3 ABG pH ABG Total CO2 ABG O2 Saturation ABG O2 Content ABG Base Excess ABG Hemoglobin ABG Carboxyhemoglobin POC ABG HHb (Measured) ABG Methemoglobin ABG O2 Capacity Forrest Test A-a O2 Difference Hgb O2 Saturation FiO2 Sodium 147 Potassium 3.5 L Chloride 110 H Carbon Dioxide 27 Anion Gap 14 BUN 22 H Creatinine 0.7 L Est GFR ( Amer) > 60 Est GFR (Non-Af Amer) > 60 POC Glucose (mg/dL) 159 H Random Glucose 156 H Calcium 8.7 Gentamicin Trough 05/19/18 05/20/18 05/20/18 21:50 06:00 10:05 WBC RBC Hgb Hct MCV MCH MCHC RDW Plt Count pCO2 31 L pO2 64 L HCO3 28.1 H ABG pH 7.54 H ABG Total CO2 27.5 ABG O2 Saturation 95.9 ABG O2 Content 14.1 L ABG Base Excess 4.2 H ABG Hemoglobin 10.8 L ABG Carboxyhemoglobin 1.8 H POC ABG HHb (Measured) 4.0 ABG Methemoglobin 1.4 ABG O2 Capacity 14.7 L Forrest Test Yes A-a O2 Difference 47.0 Hgb O2 Saturation 92.8 L FiO2 21.0 Sodium Potassium Chloride Carbon Dioxide Anion Gap BUN Creatinine Est GFR ( Amer) Est GFR (Non-Af Amer) POC Glucose (mg/dL) 182 H 132 H Random Glucose Calcium Gentamicin Trough 05/20/18 10:55 WBC RBC Hgb Hct MCV MCH MCHC RDW Plt Count pCO2 pO2 HCO3 ABG pH ABG Total CO2 ABG O2 Saturation ABG O2 Content ABG Base Excess ABG Hemoglobin ABG Carboxyhemoglobin POC ABG HHb (Measured) ABG Methemoglobin ABG O2 Capacity Forrest Test A-a O2 Difference Hgb O2 Saturation FiO2 Sodium Potassium Chloride Carbon Dioxide Anion Gap BUN Creatinine Est GFR ( Amer) Est GFR (Non-Af Amer) POC Glucose (mg/dL) 128 H Random Glucose Calcium Gentamicin Trough Microbiology 05/12/18 07:50 Blood Blood Culture - Final NO GROWTH AFTER 5 DAYS 05/12/18 07:50 Blood Gram Stain - Final TEST NOT PERFORMED 05/12/18 Unknown Blood Blood Culture - Final NO GROWTH AFTER 5 DAYS 05/12/18 Unknown Blood Gram Stain - Final TEST NOT PERFORMED 05/12/18 08:40 Urine,Catheterized Urine Culture - Final Escherichia Coli Assessment and Plan (1) UTI (urinary tract infection) Status: Deleted (2) Sepsis syndrome Status: Acute (3) Fever Status: Resolved (4) Hypoxemia Status: Acute - Assessment and Plan (Free Text) Assessment: A/P- 82 year [place] resident male with dementia, admitted with fever. new onset fever today. admission UA- Pos LE, neg Nitrates admission urine cx- E.Coli pansensitive- treated blood cx- neg x [address] report noted. normal wbc. PLan- advise to check 2 blood cx. check another UA . advise to removed the IVL that is not being used. had completed 3 days of IV meropbnem and vanco. in light of the chest CT report and his risk of aspiration advise to resume meropnem to cover for gram neg and anaerobes for 5 days.( day #2 today). monitor aspiration precautions. All above d/w .
[2018-05-20] MEDS: Proshield Plus GEL TOP SCH (17:20)
--- NOTE | 2018-05-20 18:26 | CP.PCM.PN ---
Subjective - Date & Time of Evaluation Date of Evaluation: 05/20/18 Time of Evaluation: 13:50 - Subjective Subjective: F/U UTI. Asp PNA lethargic. arousable, slow mentation, mumbling words Objective - Vital Signs/Intake and Output Vital Signs (last 24 hours): Temp Pulse Resp BP Pulse Ox 99.1 F 84 20 146/80 91 L 05/20/18 16:37 05/20/18 16:37 05/20/18 16:37 05/20/18 08:58 05/20/18 16:37 - Medications Medications: Current Medications Acetaminophen (Tylenol 325 Mg Supp) 325 mg [place] Q6 PRN PRN Reason: Fever >100.4 F Acetylcysteine (Mucomyst 10% 4ml) 2 ml IH RQ8 [facility] Last Admin: 05/20/18 15:34 Dose: 2 ml Albuterol/Ipratropium (Duoneb 3 Mg/0.5 Mg (3 Ml) Ud) 3 ml IH RQ8 [facility] Last Admin: 05/20/18 15:33 Dose: 3 ml Alendronate Sodium (Fosamax) 70 mg PO FR [facility] Artificial Tears (Artificial Tears) 2 drop OU Q6 [facility] Last Admin: 05/20/18 17:18 Dose: 2 drop Bisacodyl (Dulcolax) 10 mg [place] DAILY PRN PRN Reason: No bowel movement after 3 days Calcium Carbonate (Oscal) 500 mg PO BID [facility] Last Admin: 05/20/18 17:19 Dose: 500 mg Cholecalciferol (Vitamin D) 1,000 intlu PO BID [facility] Last Admin: 05/20/18 17:20 Dose: 1,000 intlu Dimethicone (Proshield Plus Skin Protectant) 1 applic TOP Q8 [facility] Last Admin: 05/20/18 17:20 Dose: 1 applic Donepezil HCl (Aricept) 5 mg PO HS [facility] Last Admin: 05/19/18 22:14 Dose: 5 mg Enoxaparin Sodium (Lovenox) 40 mg SC DAILY [facility]; Protocol Fluticasone Propionate (Flonase) 2 spr ASAD DAILY [facility] Last Admin: 05/20/18 09:55 Dose: 2 spr Meropenem 500 mg/ Sodium (Chloride) 100 mls @ 100 mls/hr IVPB Q8@0600,1400,2200 [facility]; Protocol Last Admin: 05/20/18 13:11 Dose: 100 mls/hr Lisinopril (Zestril) 5 mg PO HS [facility] Last Admin: 05/19/18 22:12 Dose: 5 mg Memantine (Namenda) 5 mg PO Q12 [facility] Last Admin: 05/20/18 09:56 Dose: 5 mg Multivitamins/Minerals (Therapeutic-M Tab) 1 tab PO DAILY [facility] Last Admin: 05/20/18 09:58 Dose: 1 tab Nystatin (Nystop Topical Powder) 1 applic TOP Q8H [facility] Last Admin: 05/20/18 11:43 Dose: 1 applic Pantoprazole Sodium (Protonix Ec Tab) 40 mg PO DAILY [facility] Last Admin: 05/20/18 09:57 Dose: 40 mg Potassium Chloride (K-Dur 20 Meq Er Tab) 40 meq PO DAILY [facility] Last Admin: 05/20/18 09:56 Dose: 40 meq Senna/Docusate Sodium (Senokot S 50 Mg-8.6 Mg) 1 tab PO HS [facility] Last Admin: 05/19/18 22:12 Dose: 1 tab Tamsulosin HCl (Flomax) 0.4 mg PO QPM [facility] Last Admin: 05/20/18 17:19 Dose: 0.4 mg Vitamin A (Vitamin A & D Oint Ud Foilpak) 1 ea TOP BID [facility] Last Admin: 05/20/18 17:20 Dose: 1 ea - Labs Labs: 05/19/18 06:00 05/19/18 06:00 PT 15.7 Seconds (9.8-13.1) H 05/12/18 07:50 INR 1.4 05/12/18 07:50 APTT 34.4 Seconds (25.6-37.1) 05/12/18 07:50 - Constitutional Appears: Chronically Ill - Head Exam Head Exam: NORMAL INSPECTION - Eye Exam Eye Exam: PERRL Additional comments: L eye deviated laterally - ENT Exam ENT Exam: Normal Exam - Neck Exam Neck Exam: Normal Inspection - Respiratory Exam Respiratory Exam: Decreased Breath Sounds, Rhonchi - Cardiovascular Exam Cardiovascular Exam: REGULAR RHYTHM - GI/Abdominal Exam GI & Abdominal Exam: Soft, Normal Bowel Sounds - Extremities Exam Extremities Exam: Normal Inspection - Neurological Exam Neurological Exam: Awake Additional comments: lethargic, arousable, confused, disoriented, moaning words, generalized weakness, no gross focal motor deficit. - Skin Skin Exam: Warm Assessment and Plan (1) Aspiration pneumonia Status: Acute (2) E. coli UTI Status: Acute (3) Fever Status: Resolved (4) Sepsis syndrome Status: Acute (5) Hypoxemia Status: Acute (6) Esophageal dilatation Status: Acute (7) Esophageal dilatation Status: Chronic (8) Dementia Status: Chronic (9) HTN (hypertension) Status: Chronic (10) DMII (diabetes mellitus, type 2) Status: Chronic - Assessment and Plan (Free Text) Plan: CT Chest esophageal dilatation,distal obstruction, fever today , one IV line removed, continue, Duoneb, Mucomyst, Merren IV, ID /u appreciated, f/u CXR, continue rest of Tx
[2018-05-20] MEDS: Docusate-Senna 50 mg-8.6 mg Tab PO SCH (21:29)
[2018-05-21] MEDS: Proshield Plus GEL TOP SCH ×3 (00:50→17:44)
[2018-05-21] MEDS: Artificial Tears Opht Soln OU SCH ×4 (04:14→21:38)
[2018-05-21] MEDS: Meropenem 500 MG in Sodium Chloride 0.9% 100 ML IVPB SCH ×3 (05:47→21:32)
[2018-05-21 06:17] LABS: HEMOGLOBIN 9.5 g/dL (12.0-18.0); MEAN CELL VOLUME 82.9 fl (80.0-94.0); MEAN CORPUSCULAR HEMOGLOBIN 26.9 pg (27.0-31.0); MEAN CORPUSCULAR HGB CONC 32.4 g/dL (33.0-37.0); RBC 3.52 Mil/uL (4.40-5.90); RED CELL DISTRIBUTION WIDTH 15.2 % (11.5-14.5); WHITE BLOOD COUNT 11.7 K/uL (4.8-10.8)
[2018-05-21 06:25] LABS: BLOOD UREA NITROGEN 18 mg/dl (9-20); CALCIUM 8.8 mg/dL (8.4-10.2); GFR NON-AFRICAN AMERICAN > 60
[2018-05-21] MEDS: Acetylcysteine 10% 4 ML IH SCH ×3 (07:31→23:36)
[2018-05-21] MEDS: Albuterol-Ipratrop 3 mg / 0.5 (3 ml) UD IH SCH ×2 (07:31→15:42)
[2018-05-21] MEDS ORDERED: ALENDRONATE 70 MG TAB PO SCH (09:00)
[2018-05-21] MEDS: Pantoprazole 40 mg EC Tab PO SCH (10:26)
[2018-05-21] MEDS: Vitamins A & D Oint UD Foilpak TOP SCH ×2 (10:27→17:45)
[2018-05-21] MEDS: Multivitamin With Minerals Tab PO SCH (10:27)
[2018-05-21] MEDS: Cholecalciferol 1,000 INTLU TAB PO SCH (10:27)
[2018-05-21] MEDS: Enoxaparin 40 mg Syringe SC SCH (10:28)
[2018-05-21] MEDS: Potassium Chloride 20 mEq ER Tab PO SCH (10:29)
--- NOTE | 2018-05-21 12:40 | RAD ---
Date of service: 05/21/2018 HISTORY: F/u PNA COMPARISON: 05/17/2018 FINDINGS: LUNGS: No active pulmonary disease. PLEURA: No significant pleural effusion identified, no pneumothorax apparent. CARDIOVASCULAR: No aortic atherosclerotic calcification present. Normal cardiac size. No pulmonary vascular congestion. OSSEOUS STRUCTURES: No significant abnormalities. VISUALIZED UPPER ABDOMEN: Normal. OTHER FINDINGS: None. IMPRESSION: No active disease.
--- NOTE | 2018-05-21 14:39 | PQF ---
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; right heel blan chable erthyema 05/19 and 05/20: Attending progress note: Sacral Ulcer Stage of each pressure ulcer (National Pressure Ulcer Advisory Panel definitions): -- Stage I: Intact skin with non-blanchable redness of a localized area -- Stage II: Partial thickness skin loss involving dermis with a shallow open ulcer or an open serum -filled blister -- Stage III: Full thickness skin loss involving damage or necrosis of subcutaneous tissue -- Stage IV: Full thickness skin loss with exposed bone, tendon or muscle -- Unstageable: Full thickness tissue loss in which the base of the ulcer is covered by slough and/o r eschar in the wound bed The patient's Clinical Indicators include: ---- Query created by: Brisa Pizano on 05/21/2018 9:42 AM Electronically signed by: Ramiro Hernández MD 05/21/2018 2:36 PM
--- NOTE | 2018-05-21 14:53 | CP.PCM.PN ---
Subjective - Date & Time of Evaluation Date of Evaluation: 05/21/18 Time of Evaluation: 14:00 - Subjective Subjective: F/U UTI. Asp PNA Pt awake, lethargic, arousable, open eyes to tactile stimuli, at times mumbling words. Objective - Vital Signs/Intake and Output Vital Signs (last 24 hours): Temp Pulse Resp BP Pulse Ox 97.5 F L 86 20 123/74 90 L 05/21/18 08:25 05/21/18 08:25 05/21/18 08:25 05/21/18 08:25 05/21/18 08:25 - Medications Medications: Current Medications Acetaminophen (Tylenol 325 Mg Supp) 325 mg [place] Q6 PRN PRN Reason: Fever >100.4 F Acetaminophen (Tylenol 650 Mg Supp) 650 mg [place] ONCE PRN PRN Reason: Pain, Mild (1-3) Last Admin: 05/21/18 12:10 Dose: 650 mg Acetylcysteine (Mucomyst 10% 4ml) 2 ml IH RQ8 [facility] Last Admin: 05/21/18 07:31 Dose: 2 ml Albuterol/Ipratropium (Duoneb 3 Mg/0.5 Mg (3 Ml) Ud) 3 ml IH RQ8 [facility] Last Admin: 05/21/18 07:31 Dose: 3 ml Alendronate Sodium (Fosamax) 70 mg PO FR [facility] Last Admin: 05/21/18 10:29 Dose: 70 mg Artificial Tears (Artificial Tears) 2 drop OU Q6 [facility] Last Admin: 05/21/18 10:24 Dose: 2 drop Bisacodyl (Dulcolax) 10 mg [place] DAILY PRN PRN Reason: No bowel movement after 3 days Calcium Carbonate (Oscal) 500 mg PO BID [facility] Last Admin: 05/21/18 10:26 Dose: 500 mg Cholecalciferol (Vitamin D) 1,000 intlu PO BID [facility] Last Admin: 05/21/18 10:27 Dose: 1,000 intlu Dimethicone (Proshield Plus Skin Protectant) 1 applic TOP Q8 [facility] Last Admin: 05/21/18 10:26 Dose: 1 applic Donepezil HCl (Aricept) 5 mg PO HS [facility] Last Admin: 05/20/18 21:28 Dose: 5 mg Enoxaparin Sodium (Lovenox) 40 mg SC DAILY [facility]; Protocol Last Admin: 05/21/18 10:28 Dose: 40 mg Fluticasone Propionate (Flonase) 2 spr ASAD DAILY [facility] Last Admin: 05/21/18 10:24 Dose: 2 spr Meropenem 500 mg/ Sodium (Chloride) 100 mls @ 100 mls/hr IVPB Q8@0600,1400,2200 [facility]; Protocol Last Admin: 05/21/18 05:47 Dose: 100 mls/hr Lisinopril (Zestril) 5 mg PO HS [facility] Last Admin: 05/20/18 21:30 Dose: 5 mg Memantine (Namenda) 5 mg PO Q12 [facility] Last Admin: 05/21/18 10:25 Dose: 5 mg Multivitamins/Minerals (Therapeutic-M Tab) 1 tab PO DAILY [facility] Last Admin: 05/21/18 10:27 Dose: 1 tab Nystatin (Nystop Topical Powder) 1 applic TOP Q8H [facility] Last Admin: 05/21/18 10:29 Dose: 1 applic Pantoprazole Sodium (Protonix Ec Tab) 40 mg PO DAILY [facility] Last Admin: 05/21/18 10:26 Dose: 40 mg Potassium Chloride (K-Dur 20 Meq Er Tab) 40 meq PO DAILY [facility] Last Admin: 05/21/18 10:29 Dose: 40 meq Senna/Docusate Sodium (Senokot S 50 Mg-8.6 Mg) 1 tab PO HS [facility] Last Admin: 05/20/18 21:29 Dose: 1 tab Tamsulosin HCl (Flomax) 0.4 mg PO QPM [facility] Last Admin: 05/20/18 17:19 Dose: 0.4 mg Vitamin A (Vitamin A & D Oint Ud Foilpak) 1 ea TOP BID [facility] Last Admin: 05/21/18 10:27 Dose: 1 ea - Labs Labs: 05/21/18 05:50 05/21/18 05:50 PT 15.7 Seconds (9.8-13.1) H 05/12/18 07:50 INR 1.4 05/12/18 07:50 APTT 34.4 Seconds (25.6-37.1) 05/12/18 07:50 - Constitutional Appears: Chronically Ill - Head Exam Head Exam: NORMAL INSPECTION - Eye Exam Additional comments: L eye deviated laterally - ENT Exam ENT Exam: Normal Exam - Neck Exam Neck Exam: Normal Inspection - Respiratory Exam Respiratory Exam: Decreased Breath Sounds, Rhonchi - Cardiovascular Exam Cardiovascular Exam: REGULAR RHYTHM - GI/Abdominal Exam GI & Abdominal Exam: Soft, Normal Bowel Sounds - Extremities Exam Extremities Exam: Normal Inspection - Back Exam Additional comments: Sacral ulcer - Neurological Exam Neurological Exam: Awake Additional comments: Lethargic, arousable, confused, moaning, generalized weakness, no focal deficit. Assessment and Plan (1) Aspiration pneumonia Status: Acute (2) E. coli UTI Status: Acute (3) Fever Status: Resolved (4) Sepsis syndrome Status: Acute (5) Hypoxemia Status: Acute (6) Esophageal dilatation Status: Chronic (7) Dementia Status: Chronic (8) HTN (hypertension) Status: Chronic (9) DMII (diabetes mellitus, type 2) Status: Chronic - Assessment and Plan (Free Text) Plan: Continue Merren, DuoNeb, Mucomyst and rest of Tx,
[2018-05-21 17:00] LABS: SQUAMOUS EPITHIAL 4 /hpf (0-5); URINE BACTERIA RARE (<OCC); URINE BILIRUBIN NEGATIVE (NEGATIVE); URINE BLOOD SMALL (NEGATIVE); URINE CLARITY CLOUDY (Clear); URINE GLUCOSE (UA) NEG (NEGATIVE); URINE LEUKOCYTE ESTERASE NEG Leu/uL (Negative); URINE PROTEIN 100 mg/dL (NEGATIVE)
[2018-05-21 17:05] LABS: URINE COLOR YELLOW (YELLOW)
[2018-05-21 17:19] LABS: ABG ALLEN TEST YES; ARTERIAL BLOOD GAS HCO3 28.5 mmol/L (21-28); ARTERIAL BLOOD GAS HEMOGLOBIN 10.2 g/dL (11.7-17.4); ARTERIAL BLOOD GAS O2 CAPACITY 14.1 mL/dL (16-24); ARTERIAL BLOOD GAS O2 SAT 99.2 % (95-98); ARTERIAL BLOOD GAS PCO2 37 mm/Hg (35-45); ARTERIAL BLOOD GAS PH 7.49 (7.35-7.45); ARTERIAL BLOOD GAS PO2 88 mm/Hg (80-100); ARTERIAL BLOOD GAS TCO2 29.3 mmol/L (22-28)
[2018-05-21] MEDS: Albuterol-Ipratrop 3 mg / 0.5 (3 ml) UD INH SCH ×3 (19:38→23:36)
[2018-05-22] MEDS: Proshield Plus GEL TOP SCH ×3 (00:48→16:40)
[2018-05-22] MEDS: Dextrose 5%/0.45% NS 1,000 ML IV SCH ×2 (03:11→16:37)
[2018-05-22] MEDS: Artificial Tears Opht Soln OU SCH ×4 (04:40→21:45)
[2018-05-22] MEDS: Albuterol-Ipratrop 3 mg / 0.5 (3 ml) UD INH SCH ×6 (04:54→23:55)
[2018-05-22] MEDS: Meropenem 500 MG in Sodium Chloride 0.9% 100 ML IVPB SCH ×3 (05:48→21:42)
[2018-05-22] MEDS: Acetylcysteine 10% 4 ML IH SCH ×3 (07:17→23:55)
[2018-05-22] MEDS: Enoxaparin 40 mg Syringe SC SCH (09:51)
[2018-05-22] MEDS: Vitamins A & D Oint UD Foilpak TOP SCH ×2 (09:53→16:40)
--- NOTE | 2018-05-22 15:51 | CP.PCM.PN ---
Subjective - Date & Time of Evaluation Date of Evaluation: 05/22/18 Time of Evaluation: 15:40 - Subjective Subjective: F/U Asp PNA Lethargic, open eyes to verbal stimuli, some response to tactile stimuli, coughing. Objective - Vital Signs/Intake and Output Vital Signs (last 24 hours): Temp Pulse Resp BP Pulse Ox 98.5 F 51 L 20 130/67 94 L 05/22/18 15:51 05/22/18 15:51 05/22/18 15:51 05/22/18 15:51 05/22/18 15:51 - Medications Medications: Current Medications Acetaminophen (Tylenol 325 Mg Supp) 325 mg [place] Q6 PRN PRN Reason: Fever >100.4 F Acetaminophen (Tylenol 650 Mg Supp) 650 mg [place] ONCE PRN PRN Reason: Pain, Mild (1-3) Last Admin: 05/21/18 12:10 Dose: 650 mg Acetylcysteine (Mucomyst 10% 4ml) 2 ml IH RQ8 [facility] Last Admin: 05/22/18 07:17 Dose: 2 ml Albuterol/Ipratropium (Duoneb 3 Mg/0.5 Mg (3 Ml) Ud) 3 ml INH RQ4 [facility] Last Admin: 05/22/18 15:15 Dose: 3 ml Alendronate Sodium (Fosamax) 70 mg PO FR [facility] Last Admin: 05/21/18 10:29 Dose: 70 mg Artificial Tears (Artificial Tears) 2 drop OU Q6 [facility] Last Admin: 05/22/18 09:49 Dose: 2 drop Bisacodyl (Dulcolax) 10 mg [place] DAILY PRN PRN Reason: No bowel movement after 3 days Calcium Carbonate (Oscal) 500 mg PO BID [facility] Last Admin: 05/21/18 10:26 Dose: 500 mg Cholecalciferol (Vitamin D) 1,000 intlu PO BID [facility] Last Admin: 05/21/18 10:27 Dose: 1,000 intlu Dimethicone (Proshield Plus Skin Protectant) 1 applic TOP Q8 [facility] Last Admin: 05/22/18 09:53 Dose: 1 applic Donepezil HCl (Aricept) 5 mg PO HS [facility] Last Admin: 05/20/18 21:28 Dose: 5 mg Enoxaparin Sodium (Lovenox) 40 mg SC DAILY [facility]; Protocol Last Admin: 05/22/18 09:51 Dose: 40 mg Fluticasone Propionate (Flonase) 2 spr ASAD DAILY [facility] Last Admin: 05/22/18 09:50 Dose: 2 spr Meropenem 500 mg/ Sodium (Chloride) 100 mls @ 100 mls/hr IVPB Q8@0600,1400,2200 [facility]; Protocol Last Admin: 05/22/18 13:41 Dose: 100 mls/hr Dextrose/Sodium Chloride (Dextrose 5%/0.45% Ns 1000 Ml) 1,000 mls @ 80 mls/hr IV .[id number] [facility] Stop: 05/23/18 02:54 Last Admin: 05/22/18 03:11 Dose: 80 mls/hr Lisinopril (Zestril) 5 mg PO HS [facility] Last Admin: 05/20/18 21:30 Dose: 5 mg Memantine (Namenda) 5 mg PO Q12 [facility] Last Admin: 05/21/18 10:25 Dose: 5 mg Multivitamins/Minerals (Therapeutic-M Tab) 1 tab PO DAILY [facility] Last Admin: 05/21/18 10:27 Dose: 1 tab Nystatin (Nystop Topical Powder) 1 applic TOP Q8H [facility] Last Admin: 05/22/18 09:53 Dose: 1 applic Pantoprazole Sodium (Protonix Ec Tab) 40 mg PO DAILY [facility] Last Admin: 05/21/18 10:26 Dose: 40 mg Potassium Chloride (K-Dur 20 Meq Er Tab) 40 meq PO DAILY [facility] Last Admin: 05/21/18 10:29 Dose: 40 meq Senna/Docusate Sodium (Senokot S 50 Mg-8.6 Mg) 1 tab PO HS [facility] Last Admin: 05/20/18 21:29 Dose: 1 tab Tamsulosin HCl (Flomax) 0.4 mg PO QPM [facility] Last Admin: 05/20/18 17:19 Dose: 0.4 mg Vitamin A (Vitamin A & D Oint Ud Foilpak) 1 ea TOP BID [facility] Last Admin: 05/22/18 09:53 Dose: 1 ea - Labs Labs: 05/21/18 05:50 05/21/18 05:50 PT 15.7 Seconds (9.8-13.1) H 05/12/18 07:50 INR 1.4 05/12/18 07:50 APTT 34.4 Seconds (25.6-37.1) 05/12/18 07:50 - Constitutional Appears: Chronically Ill - Head Exam Head Exam: NORMAL INSPECTION - Eye Exam Additional comments: L eye deviated bilaterally - ENT Exam ENT Exam: Normal Exam - Neck Exam Neck Exam: Normal Inspection - Respiratory Exam Respiratory Exam: Decreased Breath Sounds (at bases), Rhonchi (b/l) Additional comments: NR mask 100% - Cardiovascular Exam Cardiovascular Exam: REGULAR RHYTHM - GI/Abdominal Exam GI & Abdominal Exam: Soft, Normal Bowel Sounds - Extremities Exam Extremities Exam: Normal Inspection - Back Exam Additional comments: sacral ulcer - Neurological Exam Neurological Exam: Awake Additional comments: Lethargic, some response to tactile stimuli, generalized weakness,no focal deficit. - Psychiatric Exam Additional comments: Calm - Skin Skin Exam: Warm Assessment and Plan (1) Aspiration pneumonia Status: Acute (2) E. coli UTI Status: Acute (3) Fever Status: Resolved (4) Sepsis syndrome Status: Acute (5) Esophageal dilatation Status: Chronic (6) Hypoxemia Status: Acute (7) Dementia Status: Chronic (8) HTN (hypertension) Status: Chronic (9) DMII (diabetes mellitus, type 2) Status: Chronic - Assessment and Plan (Free Text) Plan: Continue Merren, Duoneb , Mucomyst and rest of Tx.
[2018-05-23] MEDS: Proshield Plus GEL TOP SCH ×3 (00:40→17:39)
[2018-05-23] MEDS: Artificial Tears Opht Soln OU SCH ×4 (03:56→21:14)
[2018-05-23] MEDS: Albuterol-Ipratrop 3 mg / 0.5 (3 ml) UD INH SCH ×6 (05:00→23:35)
[2018-05-23] MEDS: Meropenem 500 MG in Sodium Chloride 0.9% 100 ML IVPB SCH ×3 (05:35→21:14)
[2018-05-23] MEDS: Acetylcysteine 10% 4 ML IH SCH ×3 (07:47→23:40)
[2018-05-23] MEDS: Enoxaparin 40 mg Syringe SC SCH (09:19)
[2018-05-23] MEDS: Vitamins A & D Oint UD Foilpak TOP SCH ×2 (09:20→17:39)
[2018-05-23] MEDS ORDERED: Enalaprilat 2.5 MG/2 ML IVP STA (10:43)
[2018-05-23] MEDS ORDERED: Chlorhexidine Gluconate 1 APPL/PKT TP ONE (11:44)
--- NOTE | 2018-05-23 14:45 | CP.PCM.PN ---
Subjective - Date & Time of Evaluation Date of Evaluation: 05/23/18 Time of Evaluation: 11:50 - Subjective Subjective: F/U Asp. PNA Lethargic, minimal response to tactile stimuli, no following commands. Objective - Vital Signs/Intake and Output Vital Signs (last 24 hours): Temp Pulse Resp BP Pulse Ox 99.4 F 98 H 18 156/84 H 95 05/23/18 12:39 05/23/18 12:39 05/23/18 12:39 05/23/18 12:39 05/23/18 12:39 - Medications Medications: Current Medications Acetaminophen (Tylenol 325 Mg Supp) 325 mg [place] Q6 PRN PRN Reason: Fever >100.4 F Acetaminophen (Tylenol 650 Mg Supp) 650 mg [place] ONCE PRN PRN Reason: Pain, Mild (1-3) Last Admin: 05/21/18 12:10 Dose: 650 mg Acetylcysteine (Mucomyst 10% 4ml) 2 ml IH RQ8 [facility] Last Admin: 05/23/18 07:47 Dose: 2 ml Albuterol/Ipratropium (Duoneb 3 Mg/0.5 Mg (3 Ml) Ud) 3 ml INH RQ4 [facility] Last Admin: 05/23/18 11:23 Dose: 3 ml Alendronate Sodium (Fosamax) 70 mg PO FR [facility] Last Admin: 05/21/18 10:29 Dose: 70 mg Artificial Tears (Artificial Tears) 2 drop OU Q6 [facility] Last Admin: 05/23/18 09:19 Dose: 2 drop Bisacodyl (Dulcolax) 10 mg [place] DAILY PRN PRN Reason: No bowel movement after 3 days Calcium Carbonate (Oscal) 500 mg PO BID [facility] Last Admin: 05/21/18 10:26 Dose: 500 mg Cholecalciferol (Vitamin D) 1,000 intlu PO BID [facility] Last Admin: 05/21/18 10:27 Dose: 1,000 intlu Dimethicone (Proshield Plus Skin Protectant) 1 applic TOP Q8 [facility] Last Admin: 05/23/18 09:20 Dose: 1 applic Donepezil HCl (Aricept) 5 mg PO HS [facility] Last Admin: 05/20/18 21:28 Dose: 5 mg Enalaprilat (Vasotec) 2.5 mg IVP Q6H [facility] Enoxaparin Sodium (Lovenox) 40 mg SC DAILY [facility]; Protocol Last Admin: 05/23/18 09:19 Dose: 40 mg Fluticasone Propionate (Flonase) 2 spr ASAD DAILY [facility] Last Admin: 05/23/18 09:19 Dose: 2 spr Meropenem 500 mg/ Sodium (Chloride) 100 mls @ 100 mls/hr IVPB Q8@0600,1400,2200 [facility]; Protocol Last Admin: 05/23/18 05:35 Dose: 100 mls/hr Dextrose/Sodium Chloride (Dextrose 5%/0.45% Ns 1000 Ml) 1,000 mls @ 80 mls/hr IV .[id number] [facility] Stop: 05/24/18 14:23 Sodium Chloride 1,000 ml/ IV (SUPPLIES) 1,000 mls @ 6,168.88 mls/hr IV ONCE ONE Stop: 05/24/18 04:09 Lisinopril (Zestril) 5 mg PO HS [facility] Last Admin: 05/20/18 21:30 Dose: 5 mg Memantine (Namenda) 5 mg PO Q12 [facility] Last Admin: 05/21/18 10:25 Dose: 5 mg Multivitamins/Minerals (Therapeutic-M Tab) 1 tab PO DAILY [facility] Last Admin: 05/21/18 10:27 Dose: 1 tab Nystatin (Nystop Topical Powder) 1 applic TOP Q8H [facility] Last Admin: 05/23/18 11:25 Dose: 1 applic Pantoprazole Sodium (Protonix Ec Tab) 40 mg PO DAILY [facility] Last Admin: 05/21/18 10:26 Dose: 40 mg Potassium Chloride (K-Dur 20 Meq Er Tab) 40 meq PO DAILY [facility] Last Admin: 05/21/18 10:29 Dose: 40 meq Senna/Docusate Sodium (Senokot S 50 Mg-8.6 Mg) 1 tab PO HS [facility] Last Admin: 05/20/18 21:29 Dose: 1 tab Tamsulosin HCl (Flomax) 0.4 mg PO QPM [facility] Last Admin: 05/20/18 17:19 Dose: 0.4 mg Vitamin A (Vitamin A & D Oint Ud Foilpak) 1 ea TOP BID [facility] Last Admin: 05/23/18 09:20 Dose: 1 ea - Labs Labs: 05/21/18 05:50 05/21/18 05:50 PT 15.7 Seconds (9.8-13.1) H 05/12/18 07:50 INR 1.4 05/12/18 07:50 APTT 34.4 Seconds (25.6-37.1) 05/12/18 07:50 - Constitutional Appears: Chronically Ill - Head Exam Head Exam: NORMAL INSPECTION - Eye Exam Additional comments: L eye deviated laterally - ENT Exam ENT Exam: Normal Exam - Neck Exam Neck Exam: Normal Inspection - Respiratory Exam Respiratory Exam: Decreased Breath Sounds (at bases), Rhonchi - Cardiovascular Exam Cardiovascular Exam: REGULAR RHYTHM - GI/Abdominal Exam GI & Abdominal Exam: Soft, Normal Bowel Sounds - Extremities Exam Extremities Exam: Normal Inspection - Back Exam Additional comments: Sacral ulcer - Neurological Exam Additional comments: Lethargic, no response to verbal stimuli, unable to follows commands. - Skin Skin Exam: Warm Assessment and Plan (1) Aspiration pneumonia Status: Acute (2) E. coli UTI Status: Acute (3) Fever Status: Resolved (4) Sepsis syndrome Status: Acute (5) Hypoxemia Status: Chronic (6) Esophageal dilatation Status: Chronic (7) Dementia Status: Chronic (8) HTN (hypertension) Status: Chronic (9) DMII (diabetes mellitus, type 2) Status: Chronic - Assessment and Plan (Free Text) Plan: Pt with increased BP today, start Vasotec and continue rest of Tx, keep in NPO, attempt of insert NGT today. F/U with Pt's son in AM for Peg tube.
[2018-05-23] MEDS: Dextrose 5%/0.45% NS 1,000 ML IV SCH (14:49)
[2018-05-23] MEDS: Enalaprilat 2.5 MG/2 ML IVP SCH ×2 (17:40→22:21)
[2018-05-24] MEDS: Proshield Plus GEL TOP SCH ×3 (01:53→16:14)
[2018-05-24] MEDS: Artificial Tears Opht Soln OU SCH ×3 (04:36→22:20)
[2018-05-24] MEDS ORDERED: Sodium Chloride 0.9% 1,000 ML IV SCH ×2 (04:45→08:15)
[2018-05-24] MEDS: Albuterol-Ipratrop 3 mg / 0.5 (3 ml) UD INH SCH ×2 (05:00→08:00)
[2018-05-24] MEDS: Enalaprilat 2.5 MG/2 ML IVP SCH ×2 (05:38→13:24)
[2018-05-24 06:10] LABS: HEMOGLOBIN 9.3 g/dL (12.0-18.0); MEAN CELL VOLUME 83.1 fl (80.0-94.0); MEAN CORPUSCULAR HEMOGLOBIN 26.7 pg (27.0-31.0); MEAN CORPUSCULAR HGB CONC 32.1 g/dL (33.0-37.0); RBC 3.5 Mil/uL (4.40-5.90); RED CELL DISTRIBUTION WIDTH 15.2 % (11.5-14.5)
[2018-05-24 06:11] LABS: WHITE BLOOD COUNT 17.9 K/uL (4.8-10.8)
[2018-05-24 06:25] LABS: ALB/GLOB RATIO 0.8 (1.0-2.1); ALBUMIN 2.9 g/dL (3.5-5.0); ALT/SGPT 37 U/L (21-72); AST/SGOT 29 U/L (17-59); BLOOD UREA NITROGEN 32 mg/dl (9-20); CALCIUM 8.5 mg/dL (8.4-10.2); GFR NON-AFRICAN AMERICAN > 60
[2018-05-24] MEDS: Meropenem 500 MG in Sodium Chloride 0.9% 100 ML IVPB SCH ×3 (06:35→22:17)
[2018-05-24] MEDS: Acetylcysteine 10% 4 ML IH SCH ×3 (08:00→23:34)
[2018-05-24] MEDS ORDERED: Digoxin 500 mcg/2ml (0.5 mg/2ml) Inj IVP ONE (08:12)
[2018-05-24] MEDS ORDERED: Potassium Chloride 20 mEq 100 ML IVPB ONE ×2 (08:15→08:34)
[2018-05-24 08:32] LABS: ABG ALLEN TEST YES; ARTERIAL BLOOD GAS HCO3 30.2 mmol/L (21-28); ARTERIAL BLOOD GAS O2 SAT 100.8 % (95-98); ARTERIAL BLOOD GAS PCO2 39 mm/Hg (35-45); ARTERIAL BLOOD GAS PO2 181 mm/Hg (80-100); ARTERIAL BLOOD GAS TCO2 31.6 mmol/L (22-28)
[2018-05-24 08:57] LABS: BASO # 0.2 K/uL (0.0-0.2); BASO % 1.4 % (0.0-2.0); HEMOGLOBIN 9.4 g/dL (12.0-18.0); LYMPH # 0.4 K/uL (1.0-4.3); LYMPH % 2.5 % (20.0-40.0); MEAN CELL VOLUME 83.4 fl (80.0-94.0); MEAN CORPUSCULAR HEMOGLOBIN 26.9 pg (27.0-31.0); MEAN CORPUSCULAR HGB CONC 32.3 g/dL (33.0-37.0); MEAN PLATELET VOLUME 9.2 fl (7.2-11.7); MONO # 0.7 K/uL (0.0-0.8); MONO % 4.3 % (0.0-10.0); NEUT # 15.9 K/uL (1.8-7.0); NEUT % 91.8 % (50.0-75.0); PLATELET COUNT 264 K/uL (130-400); RED CELL DISTRIBUTION WIDTH 14.9 % (11.5-14.5); WHITE BLOOD COUNT 17.4 K/uL (4.8-10.8)
--- NOTE | 2018-05-24 09:00 | CARD ---
APPROVED REPORT Date of service: 05/24/2018 EKG Measurement Heart [id number] <Conclusion> Atrial fibrillation with rapid ventricular response with premature ventricular or aberrantly conducted complexes Nonspecific ST abnormality Abnormal ECG
--- NOTE | 2018-05-24 09:08 | PCM.RRT ---
<Mandy Bhatia - Last Filed: 05/24/18 09:27> HEART DOCTOR Nurse Assessment - Situation Location: [facility] Room Number: 657-2 HEART DOCTOR Reason for Call: O2 Saturation below 90% HEART DOCTOR Called By: RN - IV IV Inserted during HEART DOCTOR?: No - Respiratory Oxygen Delivery Method: Mask Received Nebulizer Treatments: No Was the Patient Ventilated with Bag/Mask 100% O2?: No Secretions Suctioned?: No Was the Patient Intubated?: No Was the Patient Placed on a Ventilator?: No - Medication Medications Administered During HEART DOCTOR: none - Diagnostic Test Ordered EKG: No Chest X-Ray: No CT Scan: No - Vital Signs Vital Signs: Rapid Response Vital Sign Blood Pressure 96/50 Pulse Rate 93 Respiratory Rate 22 Oxygen Saturation 82 - Time HEART DOCTOR Ended Time HEART DOCTOR Ended: 13:36 - Vital Signs at end of HEART DOCTOR Vital Signs at end of HEART DOCTOR: Rapid Response End Vital Sign Blood Pressure 111/67 Pulse Rate 93 Respiratory Rate 21 O2 Sat by Pulse Oximetry 100 - Recommendations HEART DOCTOR Level of Care Recommendations: Remain in current setting I.Reason for HEART DOCTOR - A) Acute Change in Patient: Subjective: HEART DOCTOR HEART DOCTOR Time: 8:07am HEART DOCTOR Location: [facility] HEART DOCTOR Arrival: 8:08am HEART DOCTOR Reason: Tachycardia (180's) S: 82 yo M non verbal bed bound (his baseline)with a pmhx of Dementia, HTN, DMII admitted due to UTI and fever was found to be tachycardic after receiving duonebs. O: HEART DOCTOR Vitals: T: 99.6F BP:78/49 HR:160 RR: 34 O2 Sat 91% on non rebreather mask General: unresponsive to stimuli, nonverbal, increased work of breathing HEENT: wearing non rebreather mask 100% Cardiac: Irregularly irregular, + S1S2 Resp: + B/L rales, subcostal retractions, no rhonchi, or wheezes Abdo: soft, non tender non distended, decreased bowel sounds Extrem: B/L SCD's, no edema noted HEART DOCTOR intervention: -POC 199 -EKG- A fib w. RVR non specific t wave changes -CBC, CMP, MG, PHOS -Troponin -ABG shock panel -Lactic acid -CXR -Digoxin 0.25 IVP Once -Cardizem 5mg IVP Once -Cardizem 2.5 Drip -KCL IV 40meq -Xopenex Q8 -Bolus IVF NS -Peak flow pre/post -Dr Hernández notified -Transfer to ICU for further management A/P: 82 yo M non verbal bed bound with a pmhx of Dementia, HTN, DMII admitted due to UTI and fever was found to be tachycardic after receiving duonebs. HEART DOCTOR Outcome: Pt was transferred to ICU room 434-1 HEART DOCTOR vitals: T: 99.6F BP:105/70 HR:95 RR: 34 O2 Sat 100% non rebreather mask HEART DOCTOR end: 8:36am HEART DOCTOR Leader: Dr. Guerra HEART DOCTOR residents: Dr. Ronquillo, Dr. Mora, Dr. Garner, Dr. Ospina, Dr. Bhatia <María Guerra - Last Filed: 05/24/18 14:57> HEART DOCTOR Nurse Assessment - Vital Signs Vital Signs: Rapid Response Vital Sign Blood Pressure 96/50 Pulse Rate 93 Respiratory Rate 22 Oxygen Saturation 82 - Vital Signs at end of HEART DOCTOR Vital Signs at end of HEART DOCTOR: Rapid Response End Vital Sign Blood Pressure 111/67 Pulse Rate 93 Respiratory Rate 21 O2 Sat by Pulse Oximetry 100 Attending/Attestation - Attestation I have personally seen and examined this patient.: Yes I have fully participated in the care of the patient.: Yes I have reviewed all pertinent clinical information, including history, physical exam and plan: Yes Notes (Text): HEART DOCTOR called due to tachycardia, hypotension, tachypnea and unresponsiveness 1. A Fib with RVR, new onset 2. Hypotension 3. Respiratory Insufficiency 4. Pneumonia 5. Dehydration 6. Hypokalemia 7. AMS likely due to the infection - IVF bolus, hydration -Digoxin 0.25 IV given - BP improved with IVF, low dose Cardizem given 5 mg IV - rate went down to the 90s - cont IV abx - CBC,. CMP, Trop, lactic acid - ABG - replace K- KCl IV - transfer pt to ICU, discussed case with Dr Stevens - Log Clerk - PMD - Dr Hernández notified of event
[2018-05-24 09:12] VITALS: PULSE 175
[2018-05-24] MEDS: Dextrose 5%/0.45% NS 1,000 ML IV SCH ×2 (09:27→22:21)
[2018-05-24 09:32] LABS: ALB/GLOB RATIO 0.8 (1.0-2.1); ALBUMIN 2.8 g/dL (3.5-5.0); ALT/SGPT 34 U/L (21-72); AST/SGOT 31 U/L (17-59); BLOOD UREA NITROGEN 30 mg/dl (9-20); CALCIUM 8.2 mg/dL (8.4-10.2); GFR NON-AFRICAN AMERICAN > 60
--- NOTE | 2018-05-24 09:35 | RAD ---
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 FINDINGS: LUNGS: Dense infiltrate is now identified at the right upper lobe medial left basilar airspace disease present, borderline at the medial right base. A skin fold is identified at the right base laterally. PLEURA: No significant pleural effusion identified, no pneumothorax apparent. CARDIOVASCULAR: Calcific atherosclerotic changes are seen related to the thoracic aorta. Normal cardiac size. No pulmonary vascular congestion. OSSEOUS STRUCTURES: No significant abnormalities. VISUALIZED UPPER ABDOMEN: Normal. OTHER FINDINGS: None. IMPRESSION: Dense infiltrate right upper lobe identified in the interval with likely atelectasis at the medial bilateral bases, left greater than right, though underlying pneumonia is not excluded in these locations as well. No pulmonary vascular congestion or pleural effusions bilaterally.
[2018-05-24] MEDS ORDERED: Levalbuterol 0.63 MG/3 ML Inhal Soln UD INH SCH (10:00)
[2018-05-24 10:07] LABS: ANISOCYTOSIS SLIGHT; LYMPHOCYTE 3 % (20-50); MONOCYTE 4 % (0-10); NEUTROPHIL 93 % (42-75); OVALOCYTES SLIGHT; PLATELET ESTIMATE NORMAL (NORMAL); TOTAL CELLS COUNTED 100
[2018-05-24 10:08] LABS: LARGE PLATELETS PRESENT
[2018-05-24 10:12] LABS: SQUAMOUS EPITHIAL < 1 /hpf (0-5); URINE BACTERIA RARE (<OCC); URINE BILIRUBIN NEGATIVE (NEGATIVE); URINE BLOOD MODERATE (NEGATIVE); URINE CLARITY SLIGHTY-CLOUDY (Clear); URINE COLOR YELLOW (YELLOW); URINE GLUCOSE (UA) 50 mg/dL (NEGATIVE); URINE LEUKOCYTE ESTERASE NEG Leu/uL (Negative); URINE PROTEIN 100 mg/dL (NEGATIVE)
[2018-05-24] MEDS ORDERED: EnalaprilAT 1.25 mg/ml Inj IV SCH (10:30)
[2018-05-24] MEDS ORDERED: Ipratropium 0.02% Inhal Soln (0.5 mg/2.5 ml) UD IH SCH ×2 (10:30→14:00)
--- NOTE | 2018-05-24 10:34 | CP.PCM.PN ---
Subjective - Date & Time of Evaluation Date of Evaluation: 05/24/18 Time of Evaluation: 10:34 - Subjective Subjective: ID Note- Patient seen and examined today in ICU. 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 Patient is awake and can follow simple commands. Mouth breather and as per nurse has thick oral secretions. Objective - Vital Signs/Intake and Output Vital Signs (last 24 hours): Temp Pulse Resp BP Pulse Ox 98.4 F 89 20 157/83 H 99 05/24/18 07:48 05/24/18 09:00 05/24/18 09:54 05/24/18 09:00 05/24/18 09:00 - Medications Medications: Current Medications Acetaminophen (Tylenol 325 Mg Supp) 325 mg MN Q6 PRN PRN Reason: Fever >100.4 F Last Admin: 05/23/18 23:45 Dose: 325 mg Acetaminophen (Tylenol 650 Mg Supp) 650 mg MN ONCE PRN PRN Reason: Pain, Mild (1-3) Last Admin: 05/21/18 12:10 Dose: 650 mg Acetylcysteine (Mucomyst 10% 4ml) 2 ml IH RQ8 [facility] Last Admin: 05/24/18 08:00 Dose: 2 ml Alendronate Sodium (Fosamax) 70 mg PO FR [facility] Last Admin: 05/21/18 10:29 Dose: 70 mg Artificial Tears (Artificial Tears) 2 drop OU Q6 [facility] Last Admin: 05/24/18 04:36 Dose: 2 drop Bisacodyl (Dulcolax) 10 mg MN DAILY PRN PRN Reason: No bowel movement after 3 days Calcium Carbonate (Oscal) 500 mg PO BID [facility] Last Admin: 05/21/18 10:26 Dose: 500 mg Cholecalciferol (Vitamin D) 1,000 intlu PO BID [facility] Last Admin: 05/21/18 10:27 Dose: 1,000 intlu Dimethicone (Proshield Plus Skin Protectant) 1 applic TOP Q8 [facility] Last Admin: 05/24/18 01:53 Dose: 1 applic Donepezil HCl (Aricept) 5 mg PO HS [facility] Last Admin: 05/20/18 21:28 Dose: 5 mg Enalaprilat (Vasotec) 2.5 mg IVP Q6H [facility] Last Admin: 05/24/18 05:38 Dose: 2.5 mg Enalaprilat (Vasotec Iv) 2.5 mg IV Q8 [facility] Fluticasone Propionate (Flonase) 2 spr ASAD DAILY [facility] Last Admin: 05/23/18 09:19 Dose: 2 spr Meropenem 500 mg/ Sodium (Chloride) 100 mls @ 100 mls/hr IVPB Q8@0600,1400,2200 [facility]; Protocol Last Admin: 05/24/18 06:35 Dose: 100 mls/hr Dextrose/Sodium Chloride (Dextrose 5%/0.45% Ns 1000 Ml) 1,000 mls @ 80 mls/hr IV .[id number] [facility] Stop: 05/24/18 14:23 Last Admin: 05/24/18 09:27 Dose: 80 mls/hr Sodium Chloride (Sodium Chloride 0.9%) 1,000 mls @ 80 mls/hr IV .[id number] [facility] Stop: 05/25/18 04:41 Last Admin: 05/24/18 04:37 Dose: 80 mls/hr Sodium Chloride (Sodium Chloride 0.9%) 1,000 mls @ 999 mls/hr IV .[id number] [facility] Stop: 05/25/18 08:11 Ipratropium [place] (Atrovent) 0.5 mg IH RQ8 [facility] Levalbuterol HCl (Xopenex) 0.63 mg INH RQ8 PRN PRN Reason: Shortness of Breath Memantine (Namenda) 5 mg PO Q12 [facility] Last Admin: 05/21/18 10:25 Dose: 5 mg Multivitamins/Minerals (Therapeutic-M Tab) 1 tab PO DAILY [facility] Last Admin: 05/21/18 10:27 Dose: 1 tab Nystatin (Nystop Topical Powder) 1 applic TOP Q8H [facility] Last Admin: 05/24/18 01:53 Dose: 1 applic Pantoprazole Sodium (Protonix Inj) 40 mg IVP DAILY [facility] Senna/Docusate Sodium (Senokot S 50 Mg-8.6 Mg) 1 tab PO HS [facility] Last Admin: 05/20/18 21:29 Dose: 1 tab Tamsulosin HCl (Flomax) 0.4 mg PO QPM [facility] Last Admin: 05/20/18 17:19 Dose: 0.4 mg Vitamin A (Vitamin A & D Oint Ud Foilpak) 1 ea TOP BID [facility] Last Admin: 05/23/18 17:39 Dose: 1 ea - Labs Labs: - Additional Findings Additional findings: - Constitutional Appears: No Acute Distress - Head Exam Head Exam: ATRAUMATIC - Eye Exam Eye Exam: EOMI - ENT Exam Additional comments: dry oropharynx - Neck Exam Neck exam: Positive for: Full Rom - Respiratory Exam Additional comments: decreased breath sounds at bases no wheezing no crackles - Cardiovascular Exam Cardiovascular Exam: RRR, +S1, +S2 - GI/Abdominal Exam GI & Abdominal Exam: Normal Bowel Sounds, Soft Additional comments: NT, ND - Extremities Exam Extremities exam: Positive for: normal inspection - Neurological Exam Additional comments: awake and follows some simple commands Laboratory Results - last 72 hr 05/21/18 05/21/18 05/21/18 16:07 16:30 16:49 WBC RBC Hgb Hct MCV MCH MCHC RDW Plt Count MPV Neut % (Auto) Lymph % (Auto) [place] % (Auto) Eos % (Auto) Baso % (Auto) Neut # (Auto) Lymph # (Auto) [place] # (Auto) Eos # (Auto) Baso # (Auto) Neutrophils % (Manual) Lymphocytes % (Manual) Monocytes % (Manual) Platelet Estimate Large Platelets Anisocytosis (manual) Ovalocytes pCO2 37 pO2 88 HCO3 28.5 H ABG pH 7.49 H ABG Total CO2 29.3 H ABG O2 Saturation 99.2 H ABG O2 Content 14.0 L ABG Base Excess 4.6 H ABG Hemoglobin 10.2 L ABG Carboxyhemoglobin 1.5 POC ABG HHb (Measured) 0.8 ABG Methemoglobin 1.1 ABG O2 Capacity 14.1 L [place] Test Yes ABG Potassium A-a O2 Difference 579.0 Hgb O2 Saturation 96.7 Glucose Lactate Vent Mode FiO2 100.0 Sodium Potassium Chloride Carbon Dioxide Anion Gap BUN Creatinine Est GFR ( Amer) Est GFR (Non-Af Amer) POC Glucose (mg/dL) 144 H Random Glucose Lactic Acid Calcium Phosphorus Magnesium Total Bilirubin AST ALT Alkaline Phosphatase Troponin I Total Protein Albumin Globulin Albumin/Globulin Ratio Procalcitonin Arterial Blood Potassium Urine Color Yellow Urine Clarity Cloudy Urine pH 6.0 Ur Specific [place] 1.020 Urine Protein 100 Urine Glucose (UA) Neg Urine Ketones Negative Urine Blood Small Urine Nitrate Negative Urine Bilirubin Negative Urine Urobilinogen 1.0 Ur Leukocyte Esterase Neg Urine RBC (Auto) 5 H Urine Microscopic WBC 5 Ur Squamous Epith Cells 4 Urine Bacteria Rare Hyaline Casts 3-5 H Influenza Typ A,B (EIA) 05/21/18 05/21/18 05/22/18 16:49 20:53 04:30 WBC RBC Hgb Hct MCV MCH MCHC RDW Plt Count MPV Neut % (Auto) Lymph % (Auto) [place] % (Auto) Eos % (Auto) Baso % (Auto) Neut # (Auto) Lymph # (Auto) [place] # (Auto) Eos # (Auto) Baso # (Auto) Neutrophils % (Manual) Lymphocytes % (Manual) Monocytes % (Manual) Platelet Estimate Large Platelets Anisocytosis (manual) Ovalocytes pCO2 pO2 HCO3 ABG pH ABG Total CO2 ABG O2 Saturation ABG O2 Content ABG Base Excess ABG Hemoglobin ABG Carboxyhemoglobin POC ABG HHb (Measured) ABG Methemoglobin ABG O2 Capacity [place] Test ABG Potassium A-a O2 Difference Hgb O2 Saturation Glucose Lactate Vent Mode FiO2 Sodium Potassium Chloride Carbon Dioxide Anion Gap BUN Creatinine Est GFR ( Amer) Est GFR (Non-Af Amer) POC Glucose (mg/dL) 154 H Random Glucose Lactic Acid Calcium Phosphorus Magnesium Total Bilirubin AST ALT Alkaline Phosphatase Troponin I Total Protein Albumin Globulin Albumin/Globulin Ratio Procalcitonin 0.32 Arterial Blood Potassium Urine Color Urine Clarity Urine pH Ur Specific [place] Urine Protein Urine Glucose (UA) Urine Ketones Urine Blood Urine Nitrate Urine Bilirubin Urine Urobilinogen Ur Leukocyte Esterase Urine RBC (Auto) Urine Microscopic WBC Ur Squamous Epith Cells Urine Bacteria Hyaline Casts Influenza Typ A,B (EIA) Negative for flu a/b 05/22/18 05/22/18 05/22/18 05:40 11:05 16:19 WBC RBC Hgb Hct MCV MCH MCHC RDW Plt Count MPV Neut % (Auto) Lymph % (Auto) [place] % (Auto) Eos % (Auto) Baso % (Auto) Neut # (Auto) Lymph # (Auto) [place] # (Auto) Eos # (Auto) Baso # (Auto) Neutrophils % (Manual) Lymphocytes % (Manual) Monocytes % (Manual) Platelet Estimate Large Platelets Anisocytosis (manual) Ovalocytes pCO2 pO2 HCO3 ABG pH ABG Total CO2 ABG O2 Saturation ABG O2 Content ABG Base Excess ABG Hemoglobin ABG Carboxyhemoglobin POC ABG HHb (Measured) ABG Methemoglobin ABG O2 Capacity [place] Test ABG Potassium A-a O2 Difference Hgb O2 Saturation Glucose Lactate Vent Mode FiO2 Sodium Potassium Chloride Carbon Dioxide Anion Gap BUN Creatinine Est GFR ( Amer) Est GFR (Non-Af Amer) POC Glucose (mg/dL) 151 H 174 H 179 H Random Glucose Lactic Acid Calcium Phosphorus Magnesium Total Bilirubin AST ALT Alkaline Phosphatase Troponin I Total Protein Albumin Globulin Albumin/Globulin Ratio Procalcitonin Arterial Blood Potassium Urine Color Urine Clarity Urine pH Ur Specific [place] Urine Protein Urine Glucose (UA) Urine Ketones Urine Blood Urine Nitrate Urine Bilirubin Urine Urobilinogen Ur Leukocyte Esterase Urine RBC (Auto) Urine Microscopic WBC Ur Squamous Epith Cells Urine Bacteria Hyaline Casts Influenza Typ A,B (EIA) 05/22/18 05/23/18 05/23/18 21:17 05:49 11:17 WBC RBC Hgb Hct MCV MCH MCHC RDW Plt Count MPV Neut % (Auto) Lymph % (Auto) [place] % (Auto) Eos % (Auto) Baso % (Auto) Neut # (Auto) Lymph # (Auto) [place] # (Auto) Eos # (Auto) Baso # (Auto) Neutrophils % (Manual) Lymphocytes % (Manual) Monocytes % (Manual) Platelet Estimate Large Platelets Anisocytosis (manual) Ovalocytes pCO2 pO2 HCO3 ABG pH ABG Total CO2 ABG O2 Saturation ABG O2 Content ABG Base Excess ABG Hemoglobin ABG Carboxyhemoglobin POC ABG HHb (Measured) ABG Methemoglobin ABG O2 Capacity [place] Test ABG Potassium A-a O2 Difference Hgb O2 Saturation Glucose Lactate Vent Mode FiO2 Sodium Potassium Chloride Carbon Dioxide Anion Gap BUN Creatinine Est GFR ( Amer) Est GFR (Non-Af Amer) POC Glucose (mg/dL) 162 H 227 H 165 H Random Glucose Lactic Acid Calcium Phosphorus Magnesium Total Bilirubin AST ALT Alkaline Phosphatase Troponin I Total Protein Albumin Globulin Albumin/Globulin Ratio Procalcitonin Arterial Blood Potassium Urine Color Urine Clarity Urine pH Ur Specific [place] Urine Protein Urine Glucose (UA) Urine Ketones Urine Blood Urine Nitrate Urine Bilirubin Urine Urobilinogen Ur Leukocyte Esterase Urine RBC (Auto) Urine Microscopic WBC Ur Squamous Epith Cells Urine Bacteria Hyaline Casts Influenza Typ A,B (EIA) 05/23/18 05/23/18 05/24/18 16:20 20:51 04:45 WBC 17.9 H D RBC 3.50 L Hgb 9.3 L Hct 29.1 L MCV 83.1 MCH 26.7 L MCHC 32.1 L RDW 15.2 H Plt Count 266 MPV Neut % (Auto) Lymph % (Auto) [place] % (Auto) Eos % (Auto) Baso % (Auto) Neut # (Auto) Lymph # (Auto) [place] # (Auto) Eos # (Auto) Baso # (Auto) Neutrophils % (Manual) Lymphocytes % (Manual) Monocytes % (Manual) Platelet Estimate Large Platelets Anisocytosis (manual) Ovalocytes pCO2 pO2 HCO3 ABG pH ABG Total CO2 ABG O2 Saturation ABG O2 Content ABG Base Excess ABG Hemoglobin ABG Carboxyhemoglobin POC ABG HHb (Measured) ABG Methemoglobin ABG O2 Capacity [place] Test ABG Potassium A-a O2 Difference Hgb O2 Saturation Glucose Lactate Vent Mode FiO2 Sodium Potassium Chloride Carbon Dioxide Anion Gap BUN Creatinine Est GFR ( Amer) Est GFR (Non-Af Amer) POC Glucose (mg/dL) 173 H 165 H Random Glucose Lactic Acid Calcium Phosphorus Magnesium Total Bilirubin AST ALT Alkaline Phosphatase Troponin I Total Protein Albumin Globulin Albumin/Globulin Ratio Procalcitonin Arterial Blood Potassium Urine Color Urine Clarity Urine pH Ur Specific [place] Urine Protein Urine Glucose (UA) Urine Ketones Urine Blood Urine Nitrate Urine Bilirubin Urine Urobilinogen Ur Leukocyte Esterase Urine RBC (Auto) Urine Microscopic WBC Ur Squamous Epith Cells Urine Bacteria Hyaline Casts Influenza Typ A,B (EIA) 05/24/18 05/24/18 05/24/18 04:45 06:11 08:23 WBC RBC Hgb Hct MCV MCH MCHC RDW Plt Count MPV Neut % (Auto) Lymph % (Auto) [place] % (Auto) Eos % (Auto) Baso % (Auto) Neut # (Auto) Lymph # (Auto) [place] # (Auto) Eos # (Auto) Baso # (Auto) Neutrophils % (Manual) Lymphocytes % (Manual) Monocytes % (Manual) Platelet Estimate Large Platelets Anisocytosis (manual) Ovalocytes pCO2 pO2 HCO3 ABG pH ABG Total CO2 ABG O2 Saturation ABG O2 Content ABG Base Excess ABG Hemoglobin ABG Carboxyhemoglobin POC ABG HHb (Measured) ABG Methemoglobin ABG O2 Capacity [place] Test ABG Potassium A-a O2 Difference Hgb O2 Saturation Glucose Lactate Vent Mode FiO2 Sodium 147 Potassium 3.4 L Chloride 106 Carbon Dioxide 32 H Anion Gap 12 BUN 32 H Creatinine 0.6 L Est GFR ( Amer) > 60 Est GFR (Non-Af Amer) > 60 POC Glucose (mg/dL) 189 H 199 H Random Glucose 180 H Lactic Acid Calcium 8.5 Phosphorus Magnesium Total Bilirubin 1.2 AST 29 ALT 37 Alkaline Phosphatase 95 Troponin I Total Protein 6.7 Albumin 2.9 L Globulin 3.8 Albumin/Globulin Ratio 0.8 L Procalcitonin Arterial Blood Potassium Urine Color Urine Clarity Urine pH Ur Specific [place] Urine Protein Urine Glucose (UA) Urine Ketones Urine Blood Urine Nitrate Urine Bilirubin Urine Urobilinogen Ur Leukocyte Esterase Urine RBC (Auto) Urine Microscopic WBC Ur Squamous Epith Cells Urine Bacteria Hyaline Casts Influenza Typ A,B (EIA) 05/24/18 05/24/18 05/24/18 08:24 08:54 08:54 WBC 17.4 H RBC 3.50 L Hgb 9.4 L Hct 29.2 L MCV 83.4 MCH 26.9 L MCHC 32.3 L RDW 14.9 H Plt Count 264 MPV 9.2 Neut % (Auto) 91.8 H Lymph % (Auto) 2.5 L [place] % (Auto) 4.3 Eos % (Auto) 0.0 Baso % (Auto) 1.4 Neut # (Auto) 15.9 H Lymph # (Auto) 0.4 L [place] # (Auto) 0.7 Eos # (Auto) 0.0 Baso # (Auto) 0.2 Neutrophils % (Manual) 93 H Lymphocytes % (Manual) 3 L Monocytes % (Manual) 4 Platelet Estimate Normal Large Platelets Present Anisocytosis (manual) Slight Ovalocytes Slight pCO2 39 pO2 181 H HCO3 30.2 H ABG pH 7.50 H ABG Total CO2 31.6 H ABG O2 Saturation 100.8 H ABG O2 Content ABG Base Excess 6.7 H ABG Hemoglobin ABG Carboxyhemoglobin POC ABG HHb (Measured) ABG Methemoglobin ABG O2 Capacity [place] Test Yes ABG Potassium 3.1 L A-a O2 Difference 483.0 Hgb O2 Saturation Glucose 180 H Lactate 1.4 Vent Mode Nrb FiO2 100.0 Sodium 147.0 147 Potassium 3.2 L Chloride 115.0 H 107 Carbon Dioxide 32 H Anion Gap 11 BUN 30 H Creatinine 0.8 Est GFR ( Amer) > 60 Est GFR (Non-Af Amer) > 60 POC Glucose (mg/dL) Random Glucose 179 H Lactic Acid Calcium 8.2 L Phosphorus 2.2 L Magnesium 2.2 Total Bilirubin 1.3 AST 31 ALT 34 Alkaline Phosphatase 102 Troponin I 0.0570 Total Protein 6.5 Albumin 2.8 L Globulin 3.6 Albumin/Globulin Ratio 0.8 L Procalcitonin Arterial Blood Potassium 3.1 L Urine Color Urine Clarity Urine pH Ur Specific [place] Urine Protein Urine Glucose (UA) Urine Ketones Urine Blood Urine Nitrate Urine Bilirubin Urine Urobilinogen Ur Leukocyte Esterase Urine RBC (Auto) Urine Microscopic WBC Ur Squamous Epith Cells Urine Bacteria Hyaline Casts Influenza Typ A,B (EIA) 05/24/18 05/24/18 05/24/18 08:54 09:35 11:36 WBC RBC Hgb Hct MCV MCH MCHC RDW Plt Count MPV Neut % (Auto) Lymph % (Auto) [place] % (Auto) Eos % (Auto) Baso % (Auto) Neut # (Auto) Lymph # (Auto) [place] # (Auto) Eos # (Auto) Baso # (Auto) Neutrophils % (Manual) Lymphocytes % (Manual) Monocytes % (Manual) Platelet Estimate Large Platelets Anisocytosis (manual) Ovalocytes pCO2 pO2 HCO3 ABG pH ABG Total CO2 ABG O2 Saturation ABG O2 Content ABG Base Excess ABG Hemoglobin ABG Carboxyhemoglobin POC ABG HHb (Measured) ABG Methemoglobin ABG O2 Capacity [place] Test ABG Potassium A-a O2 Difference Hgb O2 Saturation Glucose Lactate Vent Mode FiO2 Sodium Potassium Chloride Carbon Dioxide Anion Gap BUN Creatinine Est GFR ( Amer) Est GFR (Non-Af Amer) POC Glucose (mg/dL) 160 H Random Glucose Lactic Acid 1.3 Calcium Phosphorus Magnesium Total Bilirubin AST ALT Alkaline Phosphatase Troponin I Total Protein Albumin Globulin Albumin/Globulin Ratio Procalcitonin Arterial Blood Potassium Urine Color Yellow Urine Clarity Slighty-cloudy Urine pH 6.0 Ur Specific [place] 1.023 Urine Protein 100 Urine Glucose (UA) 50 Urine Ketones Trace Urine Blood Moderate Urine Nitrate Negative Urine Bilirubin Negative Urine Urobilinogen 1.0 Ur Leukocyte Esterase Neg Urine RBC (Auto) 46 H Urine Microscopic WBC 4 Ur Squamous Epith Cells < 1 Urine Bacteria Rare Hyaline Casts 3-5 H Influenza Typ A,B (EIA) Microbiology 05/20/18 15:31 Blood-Venous Blood Culture - Preliminary NO GROWTH AFTER 3 DAYS 05/20/18 15:42 Blood-Venous Blood Culture - Preliminary NO GROWTH AFTER 3 DAYS 05/21/18 16:57 Sputum Induced Gram Stain - Final 05/21/18 16:57 Sputum Induced Sputum Culture - Final Yeast Species 05/12/18 07:50 Blood Blood Culture - Final NO GROWTH AFTER 5 DAYS 05/12/18 07:50 Blood Gram Stain - Final TEST NOT PERFORMED 05/12/18 Unknown Blood Blood Culture - Final NO GROWTH AFTER 5 DAYS 05/12/18 Unknown Blood Gram Stain - Final TEST NOT PERFORMED 05/12/18 08:40 Urine,Catheterized Urine Culture - Final Escherichia Coli Accession No. 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 FINDINGS: LUNGS: Dense infiltrate is now identified at the right upper lobe medial left basilar a irspace disease present, borderline at the medial right base. A skin fold is identified at the right base laterally. PLEURA: No significant pleural effusion identified, no pneumothorax apparent. CARDIOVASCULAR: Calcific atherosclerotic changes are seen related to the thoracic aorta. Normal cardiac size. No pulmonary vascular congestion. OSSEOUS STRUCTURES: No significant abnormalities. VISUALIZED UPPER ABDOMEN: Normal. OTHER FINDINGS: None. IMPRESSION: Dense infiltrate right upper lobe identified in the interval with likely atelectasis at the medial bilateral bases, left greater than right, though underlying pneumonia is not excluded in these locations as well. No pulmonary vascular congestion or pleural effusions bilaterally. Assessment and Plan (1) UTI (urinary tract infection) Status: Deleted (2) Sepsis syndrome Status: Acute (3) Fever Status: Resolved (4) Hypoxemia Status: Acute - Assessment and Plan (Free Text) Assessment: A/P- 82 year old NH resident male with dementia, admitted with fever. s/p TAXI DRIVER SUPERVISOR earlier today na dnow is in ICU. cxr- right side infiltrates and most likely aspiration pneumonia. admission UA- Pos LE, neg Nitrates admission urine cx- E.Coli pansensitive- treated blood cx- neg x [address] report noted. new onset leukocytosis today sputum cx- yeast PLan- advise to continue with IV meropnem and also to add clindamycin for added anaerobic coverage. also advise to add fluconazole for the yeast in sputumcx. advise oral hygiene by the nurse. keep head of the bed elevated to prevent further aspiration. all labs and imaging and chart notes reviewed. critical care time spent 45 minutes.
[2018-05-24] MEDS ORDERED: Sodium Chloride 3% for Inhalation 4 ML VIAL.NEB IH PRN (11:00)
[2018-05-24] MEDS ORDERED: Fluconazole IV 100mg/50 ml NS 50 ML IVPB SCH (11:57)
[2018-05-24] MEDS: Enoxaparin 40 mg Syringe SC SCH (12:12)
[2018-05-24] MEDS ORDERED: Chlorhexidine Gluconate 1 APPL/PKT TP ONE (13:53)
--- NOTE | 2018-05-24 13:57 | RAD ---
Date of service: 05/24/2018 HISTORY: Respiratory distress. COMPARISON: 05/21/2018, 05/24/2018 Time of the most recent examination: 08:21. FINDINGS: LUNGS: Stable multifocal infiltrates in particular right upper lobe, to lesser extent right lower lobe. PLEURA: No significant pleural effusion identified, no pneumothorax apparent. CARDIOVASCULAR: No atherosclerotic calcification present Normal. OSSEOUS STRUCTURES: No significant abnormalities. VISUALIZED UPPER ABDOMEN: Normal. OTHER FINDINGS: None. IMPRESSION: Stable dense alveolar consolidative changes right lung. No new interval findings.
--- NOTE | 2018-05-24 14:49 | CP.PCM.PN ---
Subjective - Date & Time of Evaluation Date of Evaluation: 05/24/18 Time of Evaluation: 13:10 - Subjective Subjective: F/U PNA METROLOGY ENGINEER was called at 8 AM due to Hypotension, tachycardia, low O2 saturation, unresponsiveness, Pt was transferred to ICU. Objective - Vital Signs/Intake and Output Vital Signs (last 24 hours): Temp Pulse Resp BP Pulse Ox 99.4 F 76 30 H 161/88 H 100 05/24/18 12:00 05/24/18 14:00 05/24/18 14:23 05/24/18 14:00 05/24/18 14:00 Intake and Output: 05/24/18 05/24/18 06:59 18:59 Intake Total 1260 Balance 1260 - Medications Medications: Current Medications Acetaminophen (Tylenol 325 Mg Supp) 325 mg HI Q6 PRN PRN Reason: Fever >100.4 F Last Admin: 05/23/18 23:45 Dose: 325 mg Acetaminophen (Tylenol 650 Mg Supp) 650 mg HI ONCE PRN PRN Reason: Pain, Mild (1-3) Last Admin: 05/21/18 12:10 Dose: 650 mg Acetylcysteine (Mucomyst 10% 4ml) 2 ml IH RQ8 [facility] Last Admin: 05/24/18 08:00 Dose: 2 ml Alendronate Sodium (Fosamax) 70 mg PO FR [facility] Last Admin: 05/21/18 10:29 Dose: 70 mg Artificial Tears (Artificial Tears) 2 drop OU Q6 [facility] Last Admin: 05/24/18 04:36 Dose: 2 drop Bisacodyl (Dulcolax) 10 mg HI DAILY PRN PRN Reason: No bowel movement after 3 days Calcium Carbonate (Oscal) 500 mg PO BID [facility] Last Admin: 05/21/18 10:26 Dose: 500 mg Cholecalciferol (Vitamin D) 1,000 intlu PO BID [facility] Last Admin: 05/21/18 10:27 Dose: 1,000 intlu Dimethicone (Proshield Plus Skin Protectant) 1 applic TOP Q8 [facility] Last Admin: 05/24/18 12:13 Dose: 1 applic Donepezil HCl (Aricept) 5 mg PO HS [facility] Last Admin: 05/20/18 21:28 Dose: 5 mg Enalaprilat (Vasotec) 2.5 mg IVP Q6H [facility] Last Admin: 05/24/18 13:24 Dose: 2.5 mg Enalaprilat (Vasotec Iv) 2.5 mg IV Q8 [facility] Fluticasone Propionate (Flonase) 2 spr ASAD DAILY [facility] Last Admin: 05/23/18 09:19 Dose: 2 spr Meropenem 500 mg/ Sodium (Chloride) 100 mls @ 100 mls/hr IVPB Q8@0600,1400,2200 [facility]; Protocol Last Admin: 05/24/18 06:35 Dose: 100 mls/hr Sodium Chloride (Sodium Chloride 0.9%) 1,000 mls @ 80 mls/hr IV .[id number] [facility] Stop: 05/25/18 04:41 Last Admin: 05/24/18 04:37 Dose: 80 mls/hr Sodium Chloride (Sodium Chloride 0.9%) 1,000 mls @ 999 mls/hr IV .Q1H1M [facility] Stop: 05/25/18 08:11 Clindamycin Phosphate 600 mg/ (Sodium Chloride) 104 mls @ 104 mls/hr IVPB Q12 [facility]; Protocol Ipratropium [place] (Atrovent) 0.5 mg IH RQ8 [facility] Levalbuterol HCl (Xopenex) 0.63 mg INH RQ8 PRN PRN Reason: Shortness of Breath Memantine (Namenda) 5 mg PO Q12 [facility] Last Admin: 05/21/18 10:25 Dose: 5 mg Multivitamins/Minerals (Therapeutic-M Tab) 1 tab PO DAILY [facility] Last Admin: 05/21/18 10:27 Dose: 1 tab Nystatin (Nystop Topical Powder) 1 applic TOP Q8H [facility] Last Admin: 05/24/18 12:13 Dose: 1 applic Pantoprazole Sodium (Protonix Inj) 40 mg IVP DAILY [facility] Last Admin: 05/24/18 10:53 Dose: 40 mg Senna/Docusate Sodium (Senokot S 50 Mg-8.6 Mg) 1 tab PO HS [facility] Last Admin: 05/20/18 21:29 Dose: 1 tab Tamsulosin HCl (Flomax) 0.4 mg PO QPM [facility] Last Admin: 05/20/18 17:19 Dose: 0.4 mg Vitamin A (Vitamin A & D Oint Ud Foilpak) 1 ea TOP BID [facility] Last Admin: 05/23/18 17:39 Dose: 1 ea - Labs Labs: 05/24/18 08:54 05/24/18 08:54 PT 15.7 Seconds (9.8-13.1) H 05/12/18 07:50 INR 1.4 05/12/18 07:50 APTT 34.4 Seconds (25.6-37.1) 05/12/18 07:50 - Constitutional Appears: Chronically Ill - Head Exam Head Exam: NORMAL INSPECTION - Eye Exam Additional comments: L eye deviated laterally - ENT Exam Additional comments: On High Flow O2, FIO2 50% - Neck Exam Neck Exam: Normal Inspection - Respiratory Exam Respiratory Exam: Decreased Breath Sounds (at bases), Rhonchi (at bases) Additional comments: On high flow O2. - Cardiovascular Exam Cardiovascular Exam: REGULAR RHYTHM - GI/Abdominal Exam GI & Abdominal Exam: Soft, Normal Bowel Sounds - Extremities Exam Extremities Exam: Normal Inspection - Back Exam Additional comments: Sacral ulcer - Neurological Exam Neurological Exam: Awake Additional comments: Responsive to panful stimuli, moaning, some response to tactile stimuli, generalized weakness - Skin Skin Exam: Warm Assessment and Plan (1) Aspiration pneumonia Status: Acute (2) E. 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 Critical care time: 32 min.
[2018-05-24] MEDS ORDERED: Levalbuterol 1.25 MG/3 ML Inhal Soln UD INH SCH (16:00)
[2018-05-24] MEDS: Ipratropium 0.02% Inhal Soln (0.5 mg/2.5 ml) UD IH SCH ×2 (16:06→23:34)
[2018-05-24] MEDS: Clindamycin 600 MG in Sodium Chloride 0.9% 100 ML IVPB SCH ×2 (16:12→22:17)
--- NOTE | 2018-05-24 17:11 | CARD ---
APPROVED REPORT Date of service: 05/24/2018 EXAM: Two-dimensional and M-mode echocardiogram with Doppler and color Doppler. Other Information Quality : GoodRhythm : Atrial Fibrillation INDICATION Atrial Fibrillation 2D DIMENSIONS IVSd1.06 (0.7-1.1cm)LVDd5.61 (3.9-5.9cm) LVOT Diameter2.35 (1.8-2.4cm)PWd0.63 (0.7-1.1cm) IVSs1.22 (0.8-1.2cm)LVDs4.32 (2.5-4.0cm) FS (%) 23.0 %PWs0.72 (0.8-1.2cm) M-Mode DIMENSIONS Left Atrium (MM)4.35 (2.5-4.0cm)IVSd1.06 (0.7-1.1cm) Aortic Root3.62 (2.2-3.7cm)LVDd6.62 (4.0-5.6cm) Aortic Cusp Exc.2.06 (1.5-2.0cm)PWd1.29 (0.7-1.1cm) IVSs1.59 cmFS (%) 28 % LVDs4.79 (2.0-3.8cm)PWs1.12 cm Aortic Valve AoV Peak Bpdkcbtc452.9cm/sAoV VTI28.7cmAO Peak GR.10mmHg LVOT Peak [place]au436.5cm/sLVOT VTI20.09cmAO Mean GR.5mmHg LAKISHA (VMAX)1.95gm3LDL (VTI)1.57cm2 Mitral Valve MV E Ibxjszoe210.6cm/sMV DECEL [id number] A Xmbiyozx073.0cm/s MV GYX31adJ/A ratio0.8MVA (PHT)3.55cm2 TDI E/Lateral E'0.0E/Medial E'0.0 Tricuspid Valve TR Peak Fwtwlyah525kw/sRAP [id number] Peak Gr.48mmHg [id number] LEFT VENTRICLE The left ventricle is normal size. There is normal left ventricular wall thickness. The left ventricular systolic function is low normal. The estimated ejection fraction is 50-55% No regional wall motion abnormalities noted.. Transmitral Doppler flow pattern is Grade II-pseudonormal filling dynamics. No left ventricle thrombus noted on this study. There is no ventricular septal defect visualized. There is no left ventricular aneurysm. There is no mass noted in the left ventricle. RIGHT VENTRICLE The right ventricle is normal size. There is normal right ventricular wall thickness. The right ventricular systolic function is normal. ATRIA The left atrium is moderately dilated. The right atrium size is normal. The interatrial septum is intact with no evidence for an atrial septal defect. AORTIC VALVE The aortic valve is normal in structure. Mildly calcified leaflets. No aortic regurgitation is present. There is no aortic valvular stenosis. There is no aortic valvular vegetation. MITRAL VALVE The mitral valve is normal in structure. There is no evidence of mitral valve prolapse. There is no mitral valve stenosis. There is mild to moderate mitral valve regurgitation noted. TRICUSPID VALVE The tricuspid valve is normal in structure. There is mild to moderate tricuspid valve regurgitation noted. RVSP is calculated at 60 mm Hg. There is no tricuspid valve prolapse or vegetation. There is no tricuspid valve stenosis. PULMONIC VALVE The pulmonary valve is normal in structure. There is no pulmonic valvular regurgitation. There is no pulmonic valvular stenosis. GREAT VESSELS The aortic root is normal in size. The ascending aorta is normal in size. The pulmonary artery is normal. The IVC is dilated in size and collapses >50% with inspiration. PERICARDIAL EFFUSION There is no pericardial effusion. There is no pleural effusion. <Conclusion> The left ventricular systolic function is low normal. The estimated ejection fraction is 50-55% Transmitral Doppler flow pattern is Grade II-pseudonormal filling dynamics. The left atrium is moderately dilated. There is mild to moderate mitral valve regurgitation noted. There is mild to moderate tricuspid valve regurgitation noted. RVSP is calculated at 60 mm Hg. The IVC is dilated in size and collapses >50% with inspiration.
[2018-05-24] MEDS: Enalaprilat 2.5 MG/2 ML IV SCH (17:32)
[2018-05-24] MEDS: Levalbuterol 0.63 MG/3 ML Inhal Soln UD INH PRN (23:34)
[2018-05-25] MEDS: Enalaprilat 2.5 MG/2 ML IV SCH ×3 (01:00→17:46)
[2018-05-25] MEDS ORDERED: Propofol 10 mg/ml 1,000 MG/100 ML VIAL ONE (02:33)
[2018-05-25] MEDS: Proshield Plus GEL TOP SCH ×3 (03:00→16:10)
[2018-05-25] MEDS ORDERED: Sodium Chloride 0.9% 500 ML IV ONE ×2 (03:00→09:54)
[2018-05-25] MEDS ORDERED: Propofol 10 mg/ml 1,000 MG/100 ML VIAL IV SCH (03:15)
--- NOTE | 2018-05-25 03:54 | CP.PCM.PCO ---
Assessment & Plan - Assessment and Plan (Free Text) Assessment: 82 yo CM in ICU being treated for sepsis due to UTI/pneumonia and acute hypoxic respiratory failure. Was called to assess him as O2 sat dropped to low 80s and 70s on High flow O2. Upon my exam he had gargling sound on both lung capps, likely aspiration and/or pulmonary edema. Was tachycardic and tachypneic and in respiratory distress. Obtunded but moving extremities spontaneously. Had a lot of secretion despite having NGT with continues suctioning. Decision was made to start mechanical ventilation. Tried multiple times to reach family to verify code status (currently full code) unsuccessfully. Patient was intubated and started on ventilation. After intubation and vigours suctioning through ETT his saturation improved to 97%; however, BP dropped. Was given 500 cc of NS bolus and BP responded. Plan: Will continue with mechanical ventilation Close monitoring of hemodynamic and respiratory status in the unit If BP drops again despite fluid resuscitation will place central line and will start him on pressor Will continue with IV abx Prognosis guarded I spent total of 33 min of critical care time trying to stabilize this critically unstable patient excluding time spent for any procedures
[2018-05-25] MEDS: Artificial Tears Opht Soln OU SCH ×4 (04:00→22:05)
--- NOTE | 2018-05-25 04:03 | CP.PCM.PCO ---
Assessment & Plan - Assessment and Plan (Free Text) Assessment: Emergent endotracheal intubation Indication hypoxic respiratory failure acute on chronic Patient was place in sniffing position. Propofol 10 mg IV push was given. Vocal cords easily visualized with glideoscope. Size 8 ETT was seen passing through vocal cords. The cuff was seen passing beyond the cords. Stylet removed and cuff inflated. Position was confirmed with color change on calorimeter and bilateral chest sounds. ETT secured at 23 cm at the lips. CXR ordered. Patient tolerated procedure well.
--- NOTE | 2018-05-25 04:14 | PN ---
DATE: 05/24/2018 CRITICAL CARE PROGRESS NOTE LOCATION: The patient in ICU, bed 434. Time spent 50 minutes. The patient is seen and evaluated at the bedside. Past medical, surgical, family, social history reviewed. SUBJECTIVE: An 82-year-old male [facility] resident, admitted for evaluation, admitted after being found to be febrile. Past medical history is significant for advanced dementia, bed bound, hypertension, diet controlled diabetes mellitus type 2. On admission, urine was positive for possible UTI with E.coli. Seen by ID consult. Started on meropenem. While in telemetry floor, noted rapid AFib with worsening of mental status and hypotension. [employer] APPR[employer]ISER was called. Treated with digoxin, Cardizem, and IV fluids. Admitted to ICU. Remains lethargic, unable to follow commands. No distress noted. PHYSICAL EXAMINATION: VITAL SIGNS: T-max 100.7, heart rate 87 to 92 and regular, telemetry sinus rhythm, blood pressure 140/88, mean arterial pressure 105, respiratory rate 22, on high-flow nasal oxygen of 40 L with 50%, saturating 100%. Intake 1470. Output to be documented. HEAD, EYES, EARS, NOSE AND THROAT: Pupils are reactive. Conjunctivae pink. Sclerae white. NECK: Supple. Mouth opened. Breathing through the mouth. Oral mucosa dry. No jugular venous distention. Trachea is central. CHEST: Bilateral breath sounds. Diminished in intensity. Transmitted sounds from the upper airway. More secretions in the throat. HEART: Rhythm regular. S1 and S2 normal. ABDOMEN: Bowel sounds are present. Soft. EXTREMITIES: No clubbing or cyanosis. Heel protection in place to prevent foot drop. CURRENT MEDICATIONS: Tylenol 325 mg every 6 hours p.r.n. for temperature more than 100.4, Xopenex 0.63 mg via inhalation every 8 hours, Mucomyst 10% 2 mL via nebulizer every 8 hours, Artificial Tears two drops both eyes every 6 hours, Dulcolax 10 mg daily, Os-Jigar 500 mg p.o. twice daily, vitamin D 1000 units p.o. twice daily, clindamycin 600 mg IV every 12 hours, Proshield Plus skin protectant one application topically every 8 hours, Aricept 5 mg p.o. at bedtime on hold, Vasotec 2.5 mg IV every 8 hours, Flonase two sprays nasally daily, Atrovent 0.5 mg via inhalation every 8 hours, Namenda 5 mg p.o. every 12 hours through the NG tube, meropenem 500 mg IV every 8 hours, Therapeutic-M one tablet daily, nystatin one application topically every 8 hours, Protonix 40 mg IV daily, Senokot 50 mg/8.6 mg one p.o. at bedtime, IV fluid normal saline at 80 mL per hour, Flomax 0.4 mg p.o. daily. Microbiology: Urine culture positive for E. coli. Sputum culture for yeast. Blood culture, no growth. Modified barium swallow done on 05/18/2018. No penetration or aspiration observed. Ultrasound of the extremity, no evidence of deep venous thrombosis. Chest CT on 05/17/2018 shows large area of dense consolidation with few air bronchograms in left posteromedial lower lung base consistent with atelectasis/superimposed infiltrate. Electrocardiogram, sinus rhythm with premature atrial complexes. LABORATORY DATA: WBC 17.4, hemoglobin 9.4, hematocrit 29.2, MCV of 83.4, platelet count of 264, neutrophils 91.8, lymphocytes 2.5, monocytes 4.3. PT 15.7, INR 1.4, PTT 34.4. ABG: The pH 7.5, pCO2 of 39, pO2 of 181, CO2 of 31.6 on 100% FiO2. SMA-7: Sodium 147, potassium 3.2, chloride 107, CO2 of 32, blood urea nitrogen 30, creatinine 0.8, random glucose 160, lactic acid 1.3, calcium 8.2, phosphorus 2.2, magnesium 2.2. Total bilirubin 1.3, AST 31, ALT 34, troponin 0.057, albumin 2.8. Urinalysis: Hyaline cast 3.5, rbc's 46. Toxicology screen, gentamicin trough level less than 0.6. Serology influenza A and B negative. Urine Legionella and pneumococcal antigen negative. Mycoplasma pneumonia antibody negative. Microbiology: Sputum positive for yeast and E. coli in the urine. IMPRESSION AND PLAN: 1. Neuro: Hypoxic septic encephalopathy, underlying dementia, status post [employer] APPR[employer]ISER for tachycardia and hypotension, responded to fluid challenge and digoxin and Cardizem, converted to sinus rhythm, remains stable. 2. Respiratory: Hypoxic respiratory failure, possible aspiration pneumonia. Modified swallow evaluation done early shows no sign of aspiration. However, CT shows dilated esophagus. Would ask primary for possible gastrointestinal evaluation to do an endoscopy if negative to calorie count and consider percutaneous endoscopic gastrostomy insertion for adequate calorie/nutrition. 3. Cardiac: History of hypertension, status post tachycardia, converted to sinus rhythm, remains stable. As cannot safely swallow pills, we will convert enalapril to 2.5 mg IV every 8 hours. 4. Hematology: Leukocytosis, secondary to ongoing aspiration pneumonia. Anemia of chronic disease. Platelet count normal. 5. Gastroenterology: Dilated lumen from esophagus with larynx from fluid, status post swallow evaluation. No sign of aspiration. However, I would recommend gastrointestinal evaluation to assess any achalasia and/or distal esophageal stricture. 6. Endocrinology: Blood sugar 179. Maintain between 90 to 110. nasogastric tube in place. Feeding in progress. Monitor blood sugar. Keep the head of bed at 30 degrees up to minimize aspiration. Frequent suction clear of pooling secretion in the mouth. Continue deep venous thrombosis prophylaxis. Prognosis remains guarded. Jose Stevens MD MTDD
[2018-05-25 04:19] LABS: ABG ALLEN TEST YES; ARTERIAL BLOOD GAS HCO3 26.8 mmol/L (21-28); ARTERIAL BLOOD GAS O2 CAPACITY 14.4 mL/dL (16-24); ARTERIAL BLOOD GAS O2 CONTENT 14.3 ML/dL (15-23); ARTERIAL BLOOD GAS O2 SAT 99.6 % (95-98); ARTERIAL BLOOD GAS PCO2 57 mm/Hg (35-45); ARTERIAL BLOOD GAS PH 7.32 (7.35-7.45); ARTERIAL BLOOD GAS PO2 228 mm/Hg (80-100); ARTERIAL BLOOD GAS TCO2 31.1 mmol/L (22-28)
[2018-05-25 05:42] LABS: BASO % 0.1 % (0.0-2.0); HEMOGLOBIN 9.8 g/dL (12.0-18.0); LYMPH # 0.3 K/uL (1.0-4.3); LYMPH % 1.1 % (20.0-40.0); MEAN CELL VOLUME 85.6 fl (80.0-94.0); MEAN CORPUSCULAR HEMOGLOBIN 26.6 pg (27.0-31.0); MEAN PLATELET VOLUME 9.3 fl (7.2-11.7); MONO # 0.7 K/uL (0.0-0.8); MONO % 3.3 % (0.0-10.0); NEUT # 21.8 K/uL (1.8-7.0); NEUT % 95.5 % (50.0-75.0); PLATELET COUNT 274 K/uL (130-400); RBC 3.69 Mil/uL (4.40-5.90); RED CELL DISTRIBUTION WIDTH 15.8 % (11.5-14.5); WHITE BLOOD COUNT 22.8 K/uL (4.8-10.8)
[2018-05-25 05:57] LABS: ALB/GLOB RATIO 0.7 (1.0-2.1); ALBUMIN 2.6 g/dL (3.5-5.0); ALT/SGPT 38 U/L (21-72); AST/SGOT 40 U/L (17-59); BLOOD UREA NITROGEN 34 mg/dl (9-20); CALCIUM 7.9 mg/dL (8.4-10.2); GFR NON-AFRICAN AMERICAN > 60
[2018-05-25] MEDS: Ipratropium 0.02% Inhal Soln (0.5 mg/2.5 ml) UD IH SCH ×3 (07:38→23:15)
[2018-05-25] MEDS: Acetylcysteine 10% 4 ML IH SCH ×3 (07:39→23:15)
--- NOTE | 2018-05-25 10:23 | RAD ---
Date of service: 05/25/2018 HISTORY: s/p intubation COMPARISON: Frontal chest radiograph 05/24/2018. FINDINGS: LUNGS: Increased infiltrate seen the superior right lung zone somewhat diminished at the medial right base. Left basilar atelectasis unchanged medially. PLEURA: No significant pleural effusion identified, no pneumothorax apparent. CARDIOVASCULAR: Calcific atherosclerotic changes are seen related to the thoracic aorta. Normal cardiac size. No pulmonary vascular congestion. OSSEOUS STRUCTURES: No significant abnormalities. VISUALIZED UPPER ABDOMEN: Normal. OTHER FINDINGS: Nasogastric tube is coiled twice in the esophagus, proximally and distally. Removal and administration recommended, followed by confirmation radiography. IMPRESSION: Increased infiltrate right upper lung zone, diminished at the right base with left basilar atelectasis unchanged. The nasogastric tube is coiled twice in the upper and distal esophagus. Removal and readministration is recommended followed by and confirmation radiography. Findings were discussed with Dr. Hernández with written down and read back verification 05/25/2018 10:18 a.m..
[2018-05-25] MEDS ORDERED: Chlorhexidine Gluconate 1 APPL/PKT TP ONE (10:32)
[2018-05-25] MEDS: Clindamycin 600 MG in Sodium Chloride 0.9% 100 ML IVPB SCH ×2 (11:45→20:36)
[2018-05-25] MEDS ORDERED: Potassium Chl 40 mEq in D5-1/2 1,000 ML IV SCH (11:45)
[2018-05-25] MEDS: Dextrose 5%/0.45% NS 1,000 ML IV SCH (11:46)
[2018-05-25 12:13] LABS: BANDS 4 % (0-2); LYMPHOCYTE 1 % (20-50); MONOCYTE 3 % (0-10); NEUTROPHIL 92 % (42-75); PLATELET ESTIMATE NORMAL (NORMAL); TOTAL CELLS COUNTED 100
[2018-05-25 12:14] LABS: ANISOCYTOSIS SLIGHT; HYPOCHROMIC SLIGHT; PLATELET CLUMPS PRESENT
[2018-05-25 12:15] LABS: OVALOCYTES SLIGHT; TEARDROP CELLS SLIGHT
--- NOTE | 2018-05-25 13:12 | CP.PCM.PN ---
Subjective - Date & Time of Evaluation Date of Evaluation: 05/25/18 Time of Evaluation: 11:50 - Subjective Subjective: F/U Asp. PNA Pt intubated today for respiratory distress, sedated Objective - Vital Signs/Intake and Output Vital Signs (last 24 hours): Temp Pulse Resp BP Pulse Ox 98.2 F 96 H 33 H 103/60 100 05/25/18 12:00 05/25/18 12:00 05/25/18 12:00 05/25/18 12:00 05/25/18 12:00 Intake and Output: 05/25/18 05/25/18 06:59 18:59 Intake Total 1341 305 Output Total 300 Balance 1041 305 - Medications Medications: Current Medications Acetaminophen (Tylenol 325 Mg Supp) 325 mg OR Q6 PRN PRN Reason: Fever >100.4 F Last Admin: 05/24/18 17:38 Dose: 325 mg Acetaminophen (Tylenol 650 Mg Supp) 650 mg OR ONCE PRN PRN Reason: Pain, Mild (1-3) Last Admin: 05/21/18 12:10 Dose: 650 mg Acetylcysteine (Mucomyst 10% 4ml) 2 ml IH RQ8 [facility] Last Admin: 05/25/18 07:39 Dose: 2 ml Alendronate Sodium (Fosamax) 70 mg PO FR [facility] Last Admin: 05/21/18 10:29 Dose: 70 mg Artificial Tears (Artificial Tears) 2 drop OU Q6 [facility] Last Admin: 05/25/18 04:00 Dose: 2 drop Bisacodyl (Dulcolax) 10 mg OR DAILY PRN PRN Reason: No bowel movement after 3 days Calcium Carbonate (Oscal) 500 mg PO BID [facility] Last Admin: 05/21/18 10:26 Dose: 500 mg Cholecalciferol (Vitamin D) 1,000 intlu PO BID [facility] Last Admin: 05/21/18 10:27 Dose: 1,000 intlu Dimethicone (Proshield Plus Skin Protectant) 1 applic TOP Q8 [facility] Last Admin: 05/25/18 08:21 Dose: 1 applic Donepezil HCl (Aricept) 5 mg PO HS [facility] Last Admin: 05/20/18 21:28 Dose: 5 mg Enalaprilat (Vasotec) 2.5 mg IV Q8 [facility] Last Admin: 02/26/19 08:24 Dose: Not Given Fluticasone Propionate (Flonase) 2 spr ASAD DAILY [facility] Last Admin: 05/23/18 09:19 Dose: 2 spr Clindamycin Phosphate 600 mg/ (Sodium Chloride) 104 mls @ 104 mls/hr IVPB Q12 [facility]; Protocol Last Admin: 05/25/18 11:45 Dose: 104 mls/hr Dextrose/Sodium Chloride (Dextrose 5%/0.45% Ns 1000 Ml) 1,000 mls @ 80 mls/hr IV .[id number] [facility] Stop: 05/25/18 20:58 Last Admin: 05/25/18 11:46 Dose: 80 mls/hr Propofol (Diprivan) 1,000 mg in 100 mls @ 2.313 mls/hr IV .Q24H [facility]; Protocol Stop: 05/26/18 03:03 Last Admin: 05/25/18 03:59 Dose: 5 mcg/kg/min, 2.313 mls/hr Potassium Chloride/Dextrose/Sod Cl (Potassium Chl 40 Meq In D5-1/2ns) 1,000 mls @ 80 mls/hr IV .[id number] [facility] Stop: 05/26/18 11:43 Last Admin: 05/25/18 12:09 Dose: 80 mls/hr Meropenem 500 mg/ Sodium (Chloride) 100 mls @ 100 mls/hr IVPB Q8 [facility]; Protocol Ipratropium [place] (Atrovent) 0.5 mg IH RQ8 [facility] Last Admin: 05/25/18 07:38 Dose: 0.5 mg Levalbuterol HCl (Xopenex) 0.63 mg INH RQ8 PRN PRN Reason: Shortness of Breath Last Admin: 05/24/18 23:34 Dose: 0.63 mg Memantine (Namenda) 5 mg PO Q12 [facility] Last Admin: 05/21/18 10:25 Dose: 5 mg Multivitamins/Minerals (Therapeutic-M Tab) 1 tab PO DAILY [facility] Last Admin: 05/21/18 10:27 Dose: 1 tab Nystatin (Nystop Topical Powder) 1 applic TOP Q8H [facility] Last Admin: 05/25/18 12:37 Dose: 1 applic Pantoprazole Sodium (Protonix Inj) 40 mg IVP DAILY [facility] Last Admin: 05/25/18 08:19 Dose: 40 mg Senna/Docusate Sodium (Senokot S 50 Mg-8.6 Mg) 1 tab PO HS [facility] Last Admin: 05/20/18 21:29 Dose: 1 tab Tamsulosin HCl (Flomax) 0.4 mg PO QPM [facility] Last Admin: 05/20/18 17:19 Dose: 0.4 mg Vitamin A (Vitamin A & D Oint Ud Foilpak) 1 ea TOP BID [facility] Last Admin: 05/23/18 17:39 Dose: 1 ea - Labs Labs: 05/25/18 04:40 05/25/18 04:40 PT 15.7 Seconds (9.8-13.1) H 05/12/18 07:50 INR 1.4 05/12/18 07:50 APTT 34.4 Seconds (25.6-37.1) 05/12/18 07:50 - Constitutional Appears: Chronically Ill - Head Exam Head Exam: NORMAL INSPECTION - Eye Exam Additional comments: L eye deviated laterally - ENT Exam Additional comments: intubated, OGT - Neck Exam Neck Exam: Normal Inspection - Respiratory Exam Respiratory Exam: Decreased Breath Sounds (at bases), Rhonchi - Cardiovascular Exam Cardiovascular Exam: REGULAR RHYTHM - GI/Abdominal Exam GI & Abdominal Exam: Soft, Normal Bowel Sounds - Exam Additional comments: Cerrato cath - Extremities Exam Extremities Exam: Normal Inspection - Back Exam Additional comments: Sacral ulcer - Neurological Exam Additional comments: Intubated, sedated - Skin Skin Exam: Warm Assessment and Plan (1) Respiratory failure Status: Acute (2) Aspiration pneumonia Status: Acute (3) E. coli UTI Status: Acute (4) Fever Status: Resolved (5) Sepsis syndrome Status: Acute (6) Hypoxemia Status: Chronic (7) Esophageal dilatation Status: Chronic (8) Dementia Status: Chronic (9) HTN (hypertension) Status: Chronic (10) DMII (diabetes mellitus, type 2) Status: Chronic - Assessment and Plan (Free Text) Plan: OG tube reported coiled twice into upper and distal esophagus esophagus,it was removed, NG tube was inserted and is within the stomach, continue ventilatory support, Merren, Clinda, Diprivan, Potassium and rest of Tx., f/u Trachasp, when Pt more stable f/u EGD to asses esophageal dilatation and distal endoluminal esophageal lesion also PEG tube insertion. Critical care time: 33 min.
--- NOTE | 2018-05-25 13:28 | RAD ---
Date of service: 05/25/2018 HISTORY: check placement of OGT COMPARISON: May 25, 2018 Time of the most recent examination: 03:02. FINDINGS: LUNGS: Stable multifocal infiltrates. PLEURA: No significant pleural effusion identified, no pneumothorax apparent. CARDIOVASCULAR: Atherosclerotic calcifications identified primarily aortic arch. OSSEOUS STRUCTURES: No significant abnormalities. VISUALIZED UPPER ABDOMEN: Normal. OTHER FINDINGS: Uncoiling of nasogastric tube. The tip is in satisfactory position and the side hole is visible within the stomach. IMPRESSION: Satisfactory position of recently manipulated nasogastric tube. Stable position of endotracheal tube. Stable multifocal infiltrates right lung greater than left.
[2018-05-25] MEDS: Meropenem 500 MG in Sodium Chloride 0.9% 100 ML IVPB SCH ×2 (13:34→16:12)
[2018-05-25] MEDS ORDERED: Fluconazole IV 100mg/50 ml NS 50 ML IVPB SCH (14:15)
[2018-05-25] MEDS: Fluconazole IV 100mg/50 ml NS 50 ML IVPB SCH (15:20)
[2018-05-25] MEDS: Levalbuterol 0.63 MG/3 ML Inhal Soln UD INH PRN (23:15)
--- NOTE | 2018-05-25 23:56 | PN ---
DATE: 05/25/2018 CRITICAL CARE PROGRESS NOTE LOCATION: The patient in ICU, bed 434. TIME SPENT: 45 minutes. The patient is seen, evaluated at the bedside. Past medical, surgical, family, social history reviewed. Case discussed in multidisciplinary ICU rounds this morning. SUBJECTIVE: An 82-year-old male, long-term resident, admitted for evaluation after being found to be febrile. Past medical history significant for advanced dementia, bed bound, hypertension, diet-controlled diabetes mellitus type 2. On admission, urine was positive for UTI with E. coli, seen by ID consult, started on meropenem. While in telemetry floor, the patient developed rapid AFib, worsening of mental status, hypotension. HONE OPERATOR called. Treated with digoxin, Cardizem, IV fluids, admitted to ICU. Remains lethargic, unable to follow commands. Overnight on high-flow nasal oxygen. The patient was noted to be in distress with possible aspiration, developed tachycardia and desaturation, required intubation, placed on mechanical ventilation, sedated on Diprivan drip. Currently on AC/PRVC rate 14, tidal volume of 500, FiO2 of 60%, saturation 100%, peak airway pressure 26, observed rate 24, observed tidal volume 490, end-tidal CO2 of 28. PHYSICAL EXAMINATION: VITAL SIGNS: T-max 100.6, heart rate 83 and regular, blood pressure 117/56, mean arterial pressure 76, respiratory rate 22. Intake 3471, output 1500, positive balance 1971. Weight of 156 pounds. HEAD, EYES, EARS, NOSE AND THROAT: Pupils reactive. Conjunctivae pink. Sclerae are white. Mouth, orogastric tube in place. Oral mucosa dry. NECK: Supple. CHEST: Bilateral breath sounds, diminished in intensity. Scattered rhonchi. HEART: Rhythm regular. S1, S2 normal. ABDOMEN: Bowel sounds present. Soft. EXTREMITIES: No clubbing, cyanosis. Heel protection in place to prevent foot drop. CURRENT MEDICATIONS: Include Tylenol 325 mg suppository for temperature more than 100.4, acetylcysteine 10% 2 mL via inhalation every 8 hours, Xopenex 0.63 mg via nebulizer every 8 hours, Fosamax 70 mg per rectum once a week, Artificial Tears to drops every 6 hours, bisacodyl 10 mg daily p.r.n. for bowel movement, Os-Jigar 500 mg twice daily, vitamin D 1000 units p.o. twice daily, clindamycin 600 mg IV every 12 hours, D5 half normal at 80 mL/hour, Proshield skin protectant one application topically every 8 hours, Aricept 5 mg p.o. h.s., enalapril 2.5 mg IV every 8 hours hold for blood pressure less than 100, fluticasone nasal spray 2 sprays to both nostrils daily, Atrovent 0.5 mg via nebulizer every 8 hours, Namenda 5 mg p.o. every 12 hours, Therapeutic-M one tablet daily, Protonix 40 mg IV daily, Diprivan titrated to sedation Yolanda Scale 2, Flomax 0.4 mg p.o. daily. LABORATORY DATA: WBC 22.8, hemoglobin 9.8, hematocrit 31.6, platelet count 274, neutrophils 95.5, lymphocytes 1.1, monocytes 3.3. PT 15.7, INR 1.4, PTT 34.4. ABG; pH of 7.32, pCO2 of 57, pO2 of 228, on AC/PRVC rate 14, tidal volume of 500, FiO2 100%, PEEP of 5, FIO2 reduced to 60%. SMA-7 sodium 150, potassium 3.5, chloride 112, CO2 of 26, blood urea nitrogen 34, creatinine 0.8, random glucose 150, calcium 7.9, total bilirubin 1.6, AST 14, ALT 38, alkaline phosphatase 105, total protein 6.4, albumin 2.6. Urine analysis leukocyte esterase negative, rbc 46, wbc negative, hyaline casts 3-5. Toxicology screen, gentamicin trough level less than 0.6. Serology, influenza A and B negative, legionella and pneumococcal antigen negative, mycoplasma pneumoniae antigen antibody negative. IMPRESSION AND PLAN: 1. Neurologic: Hypoxic septic encephalopathy, underlying dementia, status post intubation, placed on mechanical ventilation, sedated on Diprivan drip. 2. Respiratory: Hypoxic respiratory failure, bilateral aspiration pneumonia. The patient's CT shows dilatation with air-fluid level of the distal esophagus, seen by Gastroenterology consult recommendations pending. The patient might benefit from percutaneous endoscopic gastrostomy tube insertion to avoid aspiration and further recurrent hypoxic respiratory failure. 3. Cardiac: History of hypertension, antihypertensive medications on hold. Currently blood pressure is in the acceptable range. 4. Hematology. Leukocytosis secondary to ongoing aspiration. Anemia of chronic disease, platelet count normal. 5. Gastrointestinal: Dilated lumen in the esophagus from larynx, air-fluid level. We will continue nasogastric tube feeding, closely monitor for further retention. 6. Endocrinology: Maintain blood sugar between 90 to 110. Orogastric tube in place. Continue feeding as tolerated. Keep head of bed 30 degrees up. [address] in place. Continue deep venous thrombosis prophylaxis. Prognosis remains guarded. Jose Stevens MD
[2018-05-26] MEDS: Meropenem 500 MG in Sodium Chloride 0.9% 100 ML IVPB SCH ×3 (01:19→19:24)
[2018-05-26] MEDS: Proshield Plus GEL TOP SCH ×3 (01:20→19:26)
[2018-05-26] MEDS: Enalaprilat 2.5 MG/2 ML IV SCH ×3 (01:22→19:26)
[2018-05-26] MEDS: Artificial Tears Opht Soln OU SCH ×4 (04:15→21:10)
[2018-05-26 05:26] LABS: ABG ALLEN TEST YES; ARTERIAL BLOOD GAS HCO3 26.5 mmol/L (21-28); ARTERIAL BLOOD GAS HEMOGLOBIN 8.9 g/dL (11.7-17.4); ARTERIAL BLOOD GAS O2 CAPACITY 12.4 mL/dL (16-24); ARTERIAL BLOOD GAS O2 CONTENT 12.5 ML/dL (15-23); ARTERIAL BLOOD GAS O2 SAT 100.9 % (95-98); ARTERIAL BLOOD GAS PCO2 48 mm/Hg (35-45); ARTERIAL BLOOD GAS PH 7.37 (7.35-7.45); ARTERIAL BLOOD GAS PO2 102 mm/Hg (80-100); ARTERIAL BLOOD GAS TCO2 29.2 mmol/L (22-28)
[2018-05-26 05:28] LABS: HEMOGLOBIN 8.7 g/dL (12.0-18.0); MEAN CORPUSCULAR HEMOGLOBIN 26.8 pg (27.0-31.0); MEAN CORPUSCULAR HGB CONC 31.5 g/dL (33.0-37.0); RBC 3.24 Mil/uL (4.40-5.90); RED CELL DISTRIBUTION WIDTH 15.5 % (11.5-14.5); WHITE BLOOD COUNT 22.4 K/uL (4.8-10.8)
[2018-05-26 06:48] LABS: ALB/GLOB RATIO 0.8 (1.0-2.1); ALBUMIN 2.5 g/dL (3.5-5.0); ALT/SGPT 38 U/L (21-72); AST/SGOT 27 U/L (17-59); BLOOD UREA NITROGEN 54 mg/dl (9-20); CALCIUM 7.7 mg/dL (8.4-10.2); GFR NON-AFRICAN AMERICAN > 60
[2018-05-26] MEDS: Levalbuterol 0.63 MG/3 ML Inhal Soln UD INH PRN (07:41)
[2018-05-26] MEDS: Acetylcysteine 10% 4 ML IH SCH ×2 (07:41→16:04)
[2018-05-26] MEDS: Ipratropium 0.02% Inhal Soln (0.5 mg/2.5 ml) UD IH SCH ×2 (07:42→16:04)
[2018-05-26] MEDS: Clindamycin 600 MG in Sodium Chloride 0.9% 100 ML IVPB SCH ×2 (09:45→21:01)
[2018-05-26] MEDS: Vitamins A & D Oint UD Foilpak TOP SCH ×2 (09:50→19:27)
--- NOTE | 2018-05-26 10:36 | CP.PCM.PN ---
Subjective - Date & Time of Evaluation Date of Evaluation: 05/26/18 Time of Evaluation: 10:36 - Subjective Subjective: ID Note- Patient seen axamiend today in ICU. pt. is s/p intubation . lethargic. Objective - Vital Signs/Intake and Output Vital Signs (last 24 hours): Temp Pulse Resp BP Pulse Ox 99.5 F 77 23 110/59 L 95 05/26/18 08:00 05/26/18 08:00 05/26/18 08:00 05/26/18 08:00 05/26/18 08:00 Intake and Output: 05/26/18 05/26/18 06:59 18:59 Intake Total 1730 Output Total 300 Balance 1430 - Medications Medications: Current Medications Acetaminophen (Tylenol 650 Mg Supp) 650 mg MT Q6 PRN PRN Reason: Fever >100.4 F Last Admin: 05/25/18 20:50 Dose: 650 mg Acetylcysteine (Mucomyst 10% 4ml) 2 ml IH RQ8 [facility] Last Admin: 05/26/18 07:41 Dose: 2 ml Alendronate Sodium (Fosamax) 70 mg PO FR [facility] Last Admin: 05/21/18 10:29 Dose: 70 mg Artificial Tears (Artificial Tears) 2 drop OU Q6 [facility] Last Admin: 05/26/18 09:45 Dose: 2 drop Bisacodyl (Dulcolax) 10 mg MT DAILY PRN PRN Reason: No bowel movement after 3 days Calcium Carbonate (Oscal) 500 mg PO BID [facility] Last Admin: 05/21/18 10:26 Dose: 500 mg Cholecalciferol (Vitamin D) 1,000 intlu PO BID [facility] Last Admin: 05/21/18 10:27 Dose: 1,000 intlu Dimethicone (Proshield Plus Skin Protectant) 1 applic TOP Q8 [facility] Last Admin: 05/26/18 09:49 Dose: 1 applic Donepezil HCl (Aricept) 5 mg PO HS [facility] Last Admin: 05/20/18 21:28 Dose: 5 mg Enalaprilat (Vasotec) 2.5 mg IV Q8 [facility] Last Admin: 05/26/18 09:50 Dose: 2.5 mg Fluticasone Propionate (Flonase) 2 spr ASAD DAILY [facility] Last Admin: 05/26/18 09:47 Dose: 2 spr Clindamycin Phosphate 600 mg/ (Sodium Chloride) 104 mls @ 104 mls/hr IVPB Q12 [facility]; Protocol Last Admin: 05/26/18 09:45 Dose: 104 mls/hr Potassium Chloride/Dextrose/Sod Cl (Potassium Chl 40 Meq In D5-1/2ns) 1,000 mls @ 80 mls/hr IV .[id number] [facility] Stop: 05/26/18 11:43 Last Admin: 05/25/18 12:09 Dose: 80 mls/hr Meropenem 500 mg/ Sodium (Chloride) 100 mls @ 100 mls/hr IVPB Q8 [facility]; Protocol Last Admin: 05/26/18 09:47 Dose: 100 mls/hr Fluconazole (Diflucan Iv 100 Mg/50 Ml Ns) 50 mls @ 50 mls/hr IVPB DAILY@1400 [facility]; Protocol Last Admin: 05/25/18 15:20 Dose: 50 mls/hr Ipratropium [place] (Atrovent) 0.5 mg IH RQ8 [facility] Last Admin: 05/26/18 07:42 Dose: 0.5 mg Levalbuterol HCl (Xopenex) 0.63 mg INH RQ8 PRN PRN Reason: Shortness of Breath Last Admin: 05/26/18 07:41 Dose: 0.63 mg Memantine (Namenda) 5 mg PO Q12 [facility] Last Admin: 05/21/18 10:25 Dose: 5 mg Multivitamins/Minerals (Therapeutic-M Tab) 1 tab PO DAILY [facility] Last Admin: 05/21/18 10:27 Dose: 1 tab Nystatin (Nystop Topical Powder) 1 applic TOP Q8H [facility] Last Admin: 05/26/18 09:48 Dose: 1 applic Pantoprazole Sodium (Protonix Inj) 40 mg IVP DAILY [facility] Last Admin: 05/26/18 09:49 Dose: 40 mg Senna/Docusate Sodium (Senokot S 50 Mg-8.6 Mg) 1 tab PO HS [facility] Last Admin: 05/20/18 21:29 Dose: 1 tab Tamsulosin HCl (Flomax) 0.4 mg PO QPM [facility] Last Admin: 05/20/18 17:19 Dose: 0.4 mg Vitamin A (Vitamin A & D Oint Ud Foilpak) 1 ea TOP BID [facility] Last Admin: 05/26/18 09:50 Dose: 1 ea - Labs Labs: - Constitutional Appears: Chronically Ill - ENT Exam Additional comments: ET tube in place - Respiratory Exam Additional comments: decreased breath sounds on the entire right side - Cardiovascular Exam Cardiovascular Exam: Tachycardia, +S1, +S2 - GI/Abdominal Exam GI & Abdominal Exam: Soft, Normal Bowel Sounds Additional comments: ND, NT - Extremities Exam Extremities Exam: Normal Inspection - Neurological Exam Additional comments: Intubated and lethargic - Additional Findings Additional findings: Laboratory Results - last 72 hr 05/23/18 05/23/18 05/24/18 16:20 20:51 04:45 WBC 17.9 H D RBC 3.50 L Hgb 9.3 L Hct 29.1 L MCV 83.1 MCH 26.7 L MCHC 32.1 L RDW 15.2 H Plt Count 266 MPV Neut % (Auto) Lymph % (Auto) [place] % (Auto) Eos % (Auto) Baso % (Auto) Neut # (Auto) Lymph # (Auto) [place] # (Auto) Eos # (Auto) Baso # (Auto) Neutrophils % (Manual) Band Neutrophils % Lymphocytes % (Manual) Monocytes % (Manual) Platelet Estimate Plt Clumps, EDTA Large Platelets Hypochromasia (manual) Anisocytosis (manual) Tear Drop Cells Ovalocytes pCO2 pO2 HCO3 ABG pH ABG Total CO2 ABG O2 Saturation ABG O2 Content ABG Base Excess ABG Hemoglobin ABG Carboxyhemoglobin POC ABG HHb (Measured) ABG Methemoglobin ABG O2 Capacity [place] Test ABG Potassium A-a O2 Difference Hgb O2 Saturation Glucose Lactate Vent Mode Mechanical Rate FiO2 Tidal Volume PEEP Sodium Potassium Chloride Carbon Dioxide Anion Gap BUN Creatinine Est GFR ( Amer) Est GFR (Non-Af Amer) POC Glucose (mg/dL) 173 H 165 H Random Glucose Lactic Acid Calcium Phosphorus Magnesium Total Bilirubin AST ALT Alkaline Phosphatase Troponin I Total Protein Albumin Globulin Albumin/Globulin Ratio Arterial Blood Potassium Urine Color Urine Clarity Urine pH Ur Specific [place] Urine Protein Urine Glucose (UA) Urine Ketones Urine Blood Urine Nitrate Urine Bilirubin Urine Urobilinogen Ur Leukocyte Esterase Urine RBC (Auto) Urine Microscopic WBC Ur Squamous Epith Cells Urine Bacteria Hyaline Casts 05/24/18 05/24/18 05/24/18 04:45 06:11 08:23 WBC RBC Hgb Hct MCV MCH MCHC RDW Plt Count MPV Neut % (Auto) Lymph % (Auto) [place] % (Auto) Eos % (Auto) Baso % (Auto) Neut # (Auto) Lymph # (Auto) [place] # (Auto) Eos # (Auto) Baso # (Auto) Neutrophils % (Manual) Band Neutrophils % Lymphocytes % (Manual) Monocytes % (Manual) Platelet Estimate Plt Clumps, EDTA Large Platelets Hypochromasia (manual) Anisocytosis (manual) Tear Drop Cells Ovalocytes pCO2 pO2 HCO3 ABG pH ABG Total CO2 ABG O2 Saturation ABG O2 Content ABG Base Excess ABG Hemoglobin ABG Carboxyhemoglobin POC ABG HHb (Measured) ABG Methemoglobin ABG O2 Capacity [place] Test ABG Potassium A-a O2 Difference Hgb O2 Saturation Glucose Lactate Vent Mode Mechanical Rate FiO2 Tidal Volume PEEP Sodium 147 Potassium 3.4 L Chloride 106 Carbon Dioxide 32 H Anion Gap 12 BUN 32 H Creatinine 0.6 L Est GFR ( Amer) > 60 Est GFR (Non-Af Amer) > 60 POC Glucose (mg/dL) 189 H 199 H Random Glucose 180 H Lactic Acid Calcium 8.5 Phosphorus Magnesium Total Bilirubin 1.2 AST 29 ALT 37 Alkaline Phosphatase 95 Troponin I Total Protein 6.7 Albumin 2.9 L Globulin 3.8 Albumin/Globulin Ratio 0.8 L Arterial Blood Potassium Urine Color Urine Clarity Urine pH Ur Specific [place] Urine Protein Urine Glucose (UA) Urine Ketones Urine Blood Urine Nitrate Urine Bilirubin Urine Urobilinogen Ur Leukocyte Esterase Urine RBC (Auto) Urine Microscopic WBC Ur Squamous Epith Cells Urine Bacteria Hyaline Casts 05/24/18 05/24/18 05/24/18 08:24 08:54 08:54 WBC 17.4 H RBC 3.50 L Hgb 9.4 L Hct 29.2 L MCV 83.4 MCH 26.9 L MCHC 32.3 L RDW 14.9 H Plt Count 264 MPV 9.2 Neut % (Auto) 91.8 H Lymph % (Auto) 2.5 L [place] % (Auto) 4.3 Eos % (Auto) 0.0 Baso % (Auto) 1.4 Neut # (Auto) 15.9 H Lymph # (Auto) 0.4 L [place] # (Auto) 0.7 Eos # (Auto) 0.0 Baso # (Auto) 0.2 Neutrophils % (Manual) 93 H Band Neutrophils % Lymphocytes % (Manual) 3 L Monocytes % (Manual) 4 Platelet Estimate Normal Plt Clumps, EDTA Large Platelets Present Hypochromasia (manual) Anisocytosis (manual) Slight Tear Drop Cells Ovalocytes Slight pCO2 39 pO2 181 H HCO3 30.2 H ABG pH 7.50 H ABG Total CO2 31.6 H ABG O2 Saturation 100.8 H ABG O2 Content ABG Base Excess 6.7 H ABG Hemoglobin ABG Carboxyhemoglobin POC ABG HHb (Measured) ABG Methemoglobin ABG O2 Capacity [place] Test Yes ABG Potassium 3.1 L A-a O2 Difference 483.0 Hgb O2 Saturation Glucose 180 H Lactate 1.4 Vent Mode Nrb Mechanical Rate FiO2 100.0 Tidal Volume PEEP Sodium 147.0 147 Potassium 3.2 L Chloride 115.0 H 107 Carbon Dioxide 32 H Anion Gap 11 BUN 30 H Creatinine 0.8 Est GFR ( Amer) > 60 Est GFR (Non-Af Amer) > 60 POC Glucose (mg/dL) Random Glucose 179 H Lactic Acid Calcium 8.2 L Phosphorus 2.2 L Magnesium 2.2 Total Bilirubin 1.3 AST 31 ALT 34 Alkaline Phosphatase 102 Troponin I 0.0570 Total Protein 6.5 Albumin 2.8 L Globulin 3.6 Albumin/Globulin Ratio 0.8 L Arterial Blood Potassium 3.1 L Urine Color Urine Clarity Urine pH Ur Specific [place] Urine Protein Urine Glucose (UA) Urine Ketones Urine Blood Urine Nitrate Urine Bilirubin Urine Urobilinogen Ur Leukocyte Esterase Urine RBC (Auto) Urine Microscopic WBC Ur Squamous Epith Cells Urine Bacteria Hyaline Casts 05/24/18 05/24/18 05/24/18 08:54 09:35 11:36 WBC RBC Hgb Hct MCV MCH MCHC RDW Plt Count MPV Neut % (Auto) Lymph % (Auto) [place] % (Auto) Eos % (Auto) Baso % (Auto) Neut # (Auto) Lymph # (Auto) [place] # (Auto) Eos # (Auto) Baso # (Auto) Neutrophils % (Manual) Band Neutrophils % Lymphocytes % (Manual) Monocytes % (Manual) Platelet Estimate Plt Clumps, EDTA Large Platelets Hypochromasia (manual) Anisocytosis (manual) Tear Drop Cells Ovalocytes pCO2 pO2 HCO3 ABG pH ABG Total CO2 ABG O2 Saturation ABG O2 Content ABG Base Excess ABG Hemoglobin ABG Carboxyhemoglobin POC ABG HHb (Measured) ABG Methemoglobin ABG O2 Capacity [place] Test ABG Potassium A-a O2 Difference Hgb O2 Saturation Glucose Lactate Vent Mode Mechanical Rate FiO2 Tidal Volume PEEP Sodium Potassium Chloride Carbon Dioxide Anion Gap BUN Creatinine Est GFR ( Amer) Est GFR (Non-Af Amer) POC Glucose (mg/dL) 160 H Random Glucose Lactic Acid 1.3 Calcium Phosphorus Magnesium Total Bilirubin AST ALT Alkaline Phosphatase Troponin I Total Protein Albumin Globulin Albumin/Globulin Ratio Arterial Blood Potassium Urine Color Yellow Urine Clarity Slighty-cloudy Urine pH 6.0 Ur Specific [place] 1.023 Urine Protein 100 Urine Glucose (UA) 50 Urine Ketones Trace Urine Blood Moderate Urine Nitrate Negative Urine Bilirubin Negative Urine Urobilinogen 1.0 Ur Leukocyte Esterase Neg Urine RBC (Auto) 46 H Urine Microscopic WBC 4 Ur Squamous Epith Cells < 1 Urine Bacteria Rare Hyaline Casts 3-5 H 05/24/18 05/24/18 05/24/18 14:05 16:07 21:38 WBC RBC Hgb Hct MCV MCH MCHC RDW Plt Count MPV Neut % (Auto) Lymph % (Auto) [place] % (Auto) Eos % (Auto) Baso % (Auto) Neut # (Auto) Lymph # (Auto) [place] # (Auto) Eos # (Auto) Baso # (Auto) Neutrophils % (Manual) Band Neutrophils % Lymphocytes % (Manual) Monocytes % (Manual) Platelet Estimate Plt Clumps, EDTA Large Platelets Hypochromasia (manual) Anisocytosis (manual) Tear Drop Cells Ovalocytes pCO2 pO2 HCO3 ABG pH ABG Total CO2 ABG O2 Saturation ABG O2 Content ABG Base Excess ABG Hemoglobin ABG Carboxyhemoglobin POC ABG HHb (Measured) ABG Methemoglobin ABG O2 Capacity [place] Test ABG Potassium A-a O2 Difference Hgb O2 Saturation Glucose Lactate Vent Mode Mechanical Rate FiO2 Tidal Volume PEEP Sodium Potassium Chloride Carbon Dioxide Anion Gap BUN Creatinine Est GFR ( Amer) Est GFR (Non-Af Amer) POC Glucose (mg/dL) 170 H Random Glucose Lactic Acid Calcium Phosphorus Magnesium Total Bilirubin AST ALT Alkaline Phosphatase Troponin I 0.0620 0.0800 Total Protein Albumin Globulin Albumin/Globulin Ratio Arterial Blood Potassium Urine Color Urine Clarity Urine pH Ur Specific [place] Urine Protein Urine Glucose (UA) Urine Ketones Urine Blood Urine Nitrate Urine Bilirubin Urine Urobilinogen Ur Leukocyte Esterase Urine RBC (Auto) Urine Microscopic WBC Ur Squamous Epith Cells Urine Bacteria Hyaline Casts 05/25/18 05/25/18 05/25/18 04:00 04:40 04:40 WBC 22.8 H RBC 3.69 L Hgb 9.8 L Hct 31.6 L MCV 85.6 D MCH 26.6 L MCHC 31.0 L RDW 15.8 H Plt Count 274 MPV 9.3 Neut % (Auto) 95.5 H Lymph % (Auto) 1.1 L [place] % (Auto) 3.3 Eos % (Auto) 0.0 Baso % (Auto) 0.1 Neut # (Auto) 21.8 H Lymph # (Auto) 0.3 L [place] # (Auto) 0.7 Eos # (Auto) 0.0 Baso # (Auto) 0.0 Neutrophils % (Manual) 92 H Band Neutrophils % 4 H Lymphocytes % (Manual) 1 L Monocytes % (Manual) 3 Platelet Estimate Normal Plt Clumps, EDTA Present Large Platelets Hypochromasia (manual) Slight Anisocytosis (manual) Slight Tear Drop Cells Slight Ovalocytes Slight pCO2 57 H pO2 228 H HCO3 26.8 ABG pH 7.32 L ABG Total CO2 31.1 H ABG O2 Saturation 99.6 H ABG O2 Content 14.3 L ABG Base Excess 2.4 ABG Hemoglobin 10.0 L ABG Carboxyhemoglobin 0.5 POC ABG HHb (Measured) 0.4 ABG Methemoglobin 1.6 ABG O2 Capacity 14.4 L [place] Test Yes ABG Potassium A-a O2 Difference 414.0 Hgb O2 Saturation 97.5 Glucose Lactate Vent Mode A/c Mechanical Rate 14 FiO2 100.0 Tidal Volume 500 PEEP 5 Sodium 150 H Potassium 3.5 L Chloride 112 H Carbon Dioxide 26 Anion Gap 16 BUN 34 H Creatinine 0.8 Est GFR ( Amer) > 60 Est GFR (Non-Af Amer) > 60 POC Glucose (mg/dL) Random Glucose 179 H Lactic Acid Calcium 7.9 L Phosphorus Magnesium Total Bilirubin 1.6 H AST 40 ALT 38 Alkaline Phosphatase 105 Troponin I Total Protein 6.4 Albumin 2.6 L Globulin 3.8 Albumin/Globulin Ratio 0.7 L Arterial Blood Potassium Urine Color Urine Clarity Urine pH Ur Specific [place] Urine Protein Urine Glucose (UA) Urine Ketones Urine Blood Urine Nitrate Urine Bilirubin Urine Urobilinogen Ur Leukocyte Esterase Urine RBC (Auto) Urine Microscopic WBC Ur Squamous Epith Cells Urine Bacteria Hyaline Casts 05/25/18 05/25/18 05/25/18 11:45 16:45 21:04 WBC RBC Hgb Hct MCV MCH MCHC RDW Plt Count MPV Neut % (Auto) Lymph % (Auto) [place] % (Auto) Eos % (Auto) Baso % (Auto) Neut # (Auto) Lymph # (Auto) [place] # (Auto) Eos # (Auto) Baso # (Auto) Neutrophils % (Manual) Band Neutrophils % Lymphocytes % (Manual) Monocytes % (Manual) Platelet Estimate Plt Clumps, EDTA Large Platelets Hypochromasia (manual) Anisocytosis (manual) Tear Drop Cells Ovalocytes pCO2 pO2 HCO3 ABG pH ABG Total CO2 ABG O2 Saturation ABG O2 Content ABG Base Excess ABG Hemoglobin ABG Carboxyhemoglobin POC ABG HHb (Measured) ABG Methemoglobin ABG O2 Capacity [place] Test ABG Potassium A-a O2 Difference Hgb O2 Saturation Glucose Lactate Vent Mode Mechanical Rate FiO2 Tidal Volume PEEP Sodium Potassium Chloride Carbon Dioxide Anion Gap BUN Creatinine Est GFR ( Amer) Est GFR (Non-Af Amer) POC Glucose (mg/dL) 150 H 171 H 229 H Random Glucose Lactic Acid Calcium Phosphorus Magnesium Total Bilirubin AST ALT Alkaline Phosphatase Troponin I Total Protein Albumin Globulin Albumin/Globulin Ratio Arterial Blood Potassium Urine Color Urine Clarity Urine pH Ur Specific [place] Urine Protein Urine Glucose (UA) Urine Ketones Urine Blood Urine Nitrate Urine Bilirubin Urine Urobilinogen Ur Leukocyte Esterase Urine RBC (Auto) Urine Microscopic WBC Ur Squamous Epith Cells Urine Bacteria Hyaline Casts 05/26/18 05/26/18 05/26/18 04:30 04:30 04:39 WBC 22.4 H RBC 3.24 L Hgb 8.7 L Hct 27.5 L MCV 85.0 MCH 26.8 L MCHC 31.5 L RDW 15.5 H Plt Count 204 MPV Neut % (Auto) Lymph % (Auto) [place] % (Auto) Eos % (Auto) Baso % (Auto) Neut # (Auto) Lymph # (Auto) [place] # (Auto) Eos # (Auto) Baso # (Auto) Neutrophils % (Manual) Band Neutrophils % Lymphocytes % (Manual) Monocytes % (Manual) Platelet Estimate Plt Clumps, EDTA Large Platelets Hypochromasia (manual) Anisocytosis (manual) Tear Drop Cells Ovalocytes pCO2 48 H pO2 102 H HCO3 26.5 ABG pH 7.37 ABG Total CO2 29.2 H ABG O2 Saturation 100.9 H ABG O2 Content 12.5 L ABG Base Excess 2.0 ABG Hemoglobin 8.9 L ABG Carboxyhemoglobin 1.5 POC ABG HHb (Measured) -0.9 L ABG Methemoglobin 0.8 ABG O2 Capacity 12.4 L [place] Test Yes ABG Potassium A-a O2 Difference 266.0 Hgb O2 Saturation 98.5 H Glucose Lactate Vent Mode A/c Mechanical Rate 14 FiO2 60.0 Tidal Volume 500 PEEP 5 Sodium 148 Potassium 4.1 Chloride 111 H Carbon Dioxide 28 Anion Gap 13 BUN 54 H Creatinine 1.1 Est GFR ( Amer) > 60 Est GFR (Non-Af Amer) > 60 POC Glucose (mg/dL) Random Glucose 278 H Lactic Acid Calcium 7.7 L Phosphorus Magnesium Total Bilirubin 0.8 AST 27 ALT 38 Alkaline Phosphatase 83 Troponin I Total Protein 5.8 L Albumin 2.5 L Globulin 3.3 Albumin/Globulin Ratio 0.8 L Arterial Blood Potassium Urine Color Urine Clarity Urine pH Ur Specific [place] Urine Protein Urine Glucose (UA) Urine Ketones Urine Blood Urine Nitrate Urine Bilirubin Urine Urobilinogen Ur Leukocyte Esterase Urine RBC (Auto) Urine Microscopic WBC Ur Squamous Epith Cells Urine Bacteria Hyaline Casts 05/26/18 05:45 WBC RBC Hgb Hct MCV MCH MCHC RDW Plt Count MPV Neut % (Auto) Lymph % (Auto) [place] % (Auto) Eos % (Auto) Baso % (Auto) Neut # (Auto) Lymph # (Auto) [place] # (Auto) Eos # (Auto) Baso # (Auto) Neutrophils % (Manual) Band Neutrophils % Lymphocytes % (Manual) Monocytes % (Manual) Platelet Estimate Plt Clumps, EDTA Large Platelets Hypochromasia (manual) Anisocytosis (manual) Tear Drop Cells Ovalocytes pCO2 pO2 HCO3 ABG pH ABG Total CO2 ABG O2 Saturation ABG O2 Content ABG Base Excess ABG Hemoglobin ABG Carboxyhemoglobin POC ABG HHb (Measured) ABG Methemoglobin ABG O2 Capacity [place] Test ABG Potassium A-a O2 Difference Hgb O2 Saturation Glucose Lactate Vent Mode Mechanical Rate FiO2 Tidal Volume PEEP Sodium Potassium Chloride Carbon Dioxide Anion Gap BUN Creatinine Est GFR ( Amer) Est GFR (Non-Af Amer) POC Glucose (mg/dL) 247 H Random Glucose Lactic Acid Calcium Phosphorus Magnesium Total Bilirubin AST ALT Alkaline Phosphatase Troponin I Total Protein Albumin Globulin Albumin/Globulin Ratio Arterial Blood Potassium Urine Color Urine Clarity Urine pH Ur Specific [place] Urine Protein Urine Glucose (UA) Urine Ketones Urine Blood Urine Nitrate Urine Bilirubin Urine Urobilinogen Ur Leukocyte Esterase Urine RBC (Auto) Urine Microscopic WBC Ur Squamous Epith Cells Urine Bacteria Hyaline Casts Microbiology 05/24/18 15:00 Sputum Gram Stain - Final 05/24/18 15:00 Sputum Sputum Culture - Final Yeast Species 05/24/18 09:35 Urine,Catheterized Urine Culture - Final No Growth (<1,000 CFU/ML) 05/20/18 15:31 Blood-Venous Blood Culture - Final NO GROWTH AFTER 5 DAYS 05/20/18 15:31 Blood-Venous Gram Stain - Final TEST NOT PERFORMED 05/20/18 15:42 Blood-Venous Blood Culture - Final NO GROWTH AFTER 5 DAYS 05/20/18 15:42 Blood-Venous Gram Stain - Final TEST NOT PERFORMED 05/24/18 14:15 Blood-Venous Blood Culture - Preliminary NO GROWTH AFTER 24 HOURS 05/24/18 14:00 Blood-Venous Blood Culture - Preliminary NO GROWTH AFTER 24 HOURS 05/24/18 09:35 Naris MRSA Culture (Admit) - Final MRSA NOT DETECTED 05/21/18 16:57 Sputum Induced Gram Stain - Final 05/21/18 16:57 Sputum Induced Sputum Culture - Final Yeast Species 05/12/18 07:50 Blood Blood Culture - Final NO GROWTH AFTER 5 DAYS 05/12/18 07:50 Blood Gram Stain - Final TEST NOT PERFORMED 05/12/18 Unknown Blood Blood Culture - Final NO GROWTH AFTER 5 DAYS 05/12/18 Unknown Blood Gram Stain - Final TEST NOT PERFORMED 05/12/18 08:40 Urine,Catheterized Urine Culture - Final Escherichia Coli Accession No. : [id number] Patient Name / ID : TANNER BOWIE / [id number] Exam Date : 05/26/2018 04:20:55 ( Approved ) Study Comment : Sex / Age : M / [id number] Creator : Main Cohen MD Dictator : Main Cohen MD Unemployment Claims Adjudicator : Irradiated Fuel Handler : Main Cohen MD Approver2 : Report Date : 05/26/2018 10:55:35 My Comment : Date of service: 05/26/2018 HISTORY: Pt intubated COMPARISON: 05/25/2018 FINDINGS: LUNGS: Dense right upper lobe opacity. Possible infectious or neoplastic etiology. Persistent ill-defined opacity at right base, possibly pneumonia. No abnormal left-sided opacity. PLEURA: No significant pleural effusion identified, no pneumothorax apparent. CARDIOVASCULAR: No aortic atherosclerotic calcification present. Normal heart size. ET tube and NG tube unchanged. No pulmonary vascular congestion. OSSEOUS STRUCTURES: No significant abnormalities. VISUALIZED UPPER ABDOMEN: Normal. OTHER FINDINGS: None. IMPRESSION: Persistent dense right upper lobe opacity. Extensive ill-defined opacity at right base. Infectious versus neoplastic. Follow-up advised. Assessment and Plan (1) UTI (urinary tract infection) Status: Deleted (2) Sepsis syndrome Status: Acute (3) Fever Status: Resolved (4) Hypoxemia Status: Chronic - Assessment and Plan (Free Text) Assessment: A/P- 82 year old [place] resident male with dementia, admitted with fever initially and had UTI and ? asp pneumonia and was treated with IV antibiotiocs and was fever free and normal wbc and doing ok but few days ago had aspiration pneumonia and hypoxemic and rapid a.fib and now is s/p intubation and in ICU. cxr- right side infiltrates and most likely aspiration pneumonia. admission UA- Pos LE, neg Nitrates admission urine cx- E.Coli pansensitive- treated for this already blood cx- neg x 5 new onset leukocytosis most likely secondary to aspiration sputum cx- yeast PLan- advise to continue with IV meropenem and clindamycin for added anaerobic coverage. also advise to continue with IV fluconazole for yeast in sputum. advise to add vanco to the regimen to cover empirically for MRSA as well. keep trough <15. Patient might need bronchoscopy for evaluation and treatment of the right sided dense nfiltrates. all labs and imaging and chart notes reviewed. critical care time spent 45 minutes.
--- NOTE | 2018-05-26 11:01 | RAD ---
Date of service: 05/26/2018 HISTORY: Pt intubated COMPARISON: 05/25/2018 FINDINGS: LUNGS: Dense right upper lobe opacity. Possible infectious or neoplastic etiology. Persistent ill-defined opacity at right base, possibly pneumonia. No abnormal left-sided opacity. PLEURA: No significant pleural effusion identified, no pneumothorax apparent. CARDIOVASCULAR: No aortic atherosclerotic calcification present. Normal heart size. ET tube and NG tube unchanged. No pulmonary vascular congestion. OSSEOUS STRUCTURES: No significant abnormalities. VISUALIZED UPPER ABDOMEN: Normal. OTHER FINDINGS: None. IMPRESSION: Persistent dense right upper lobe opacity. Extensive ill-defined opacity at right base. Infectious versus neoplastic. Follow-up advised.
--- NOTE | 2018-05-26 11:12 | CP.CCUPN ---
CCU Subjective - Physician Review Subjective (Free Text): Sedated on MV, breathing 24 on AC 14, TV 500ml, SPo2 100% on 60% fiO2. On low dose Propofol at 5 mcg dose. + 101.8F FEVER spike overnight, but has been relatively hypothermic with Ts in the 97F range. SBPs 110s, HR 70s sinus. Other vitals and I/O's reviewed. 2311ml in / 600 ml out last 24H. On OGT feed with Glucerna 45 ml/hr; and IVFs at 80 ml/hr. ROS: No other pertinent negs or positives on 10+ system review obtainable due to sedation. PMSFH: All other Nursing and physician documentation reviewed to date; no new pertinent info noted relevant to current medical problems. EXAM- HEENT: no icterus, no gaze preference, pupils reactive, no nystagmus NECK: no JVD visible, supple, carotids equal upstroke bilat/no bruit CHEST: decreased BS at the bases, no wheezes audible HEART: regular, distant, S1S2, no rubs ABD: soft, no distension, no focal tenderness, no tympany, no guarding, no organomegaly, BS hypoactive. EXT: + LE edema, no mottling; no calf tenderness or palpable cords, distal pulses intact and symmetrical, no cyanosis, no mottling. NEURO: + tone, withdraws to pain x 4. SKIN: no rashes, warm and dry LABS: WBC= 22.4 HGB= 8.7 PLTs= 204K 7.37/48/102 Na= 148 K= 4.1 CL= 111 HCO3= 28 BUN/Cr= 54/1.1 BS= 278 CXR; (my interp) ETT position OK above brianne, marked R sided infiltrates worse than Left. IMPRESSION / MAJOR PROBLEMS NOW: 1. Acute hypoxemic resp failure 2 Bilateral pneumonia 2. Severe Sepsis with Shock 2 #1, r/o Bacteremia, + E.coli UTI 3. s/p Paroxysmal A Fib with RVR 4. s/p Hyponatremia with Azotemia/ Dehydration 5. h/o Dementia PLAN: 1. Day #2 MV support, try decreasing FIo2, remains on empiric abx / afx coverage. 2. Ongoing IVF hydration, needs more volume expansion with increase in BUN / Cr today. NSS 1000ml now. 3. Decrease sedation, use only for vent asynchrony, review of notes show baseline mental status was not very functional, +non-verbal but opens eyes to verbal name calling and could perform some simple commands. 4. Discontinue IV Enalaprilat. Time spent with this patient did not overlap with any other provider's medical or critical care time. Additionally the code selected for the services rendered in this note includes the time spent: talking to the patients family, associated physicians and reviewing hospital data/results not listed here which extended to a total of 40 minutes.
[2018-05-26] MEDS ORDERED: Sodium Chloride 0.9% 1,000 ML IV SCH (11:15)
--- NOTE | 2018-05-26 12:28 | CP.PCM.PN ---
Subjective - Date & Time of Evaluation Date of Evaluation: 05/26/18 Time of Evaluation: 12:27 - Subjective Subjective: no overnight events Objective - Vital Signs/Intake and Output Vital Signs (last 24 hours): Temp Pulse Resp BP Pulse Ox 100.4 F H 79 25 H 107/52 L 99 05/26/18 12:00 05/26/18 12:00 05/26/18 12:00 05/26/18 12:00 05/26/18 12:00 Intake and Output: 05/26/18 05/26/18 06:59 18:59 Intake Total 1730 Output Total 300 Balance 1430 - Medications Medications: Current Medications Acetaminophen (Tylenol 650 Mg Supp) 650 mg OR Q6 PRN PRN Reason: Fever >100.4 F Last Admin: 05/26/18 12:06 Dose: 650 mg Acetylcysteine (Mucomyst 10% 4ml) 2 ml IH RQ8 [facility] Last Admin: 05/26/18 07:41 Dose: 2 ml Alendronate Sodium (Fosamax) 70 mg PO FR [facility] Last Admin: 05/21/18 10:29 Dose: 70 mg Artificial Tears (Artificial Tears) 2 drop OU Q6 [facility] Last Admin: 05/26/18 09:45 Dose: 2 drop Bisacodyl (Dulcolax) 10 mg OR DAILY PRN PRN Reason: No bowel movement after 3 days Calcium Carbonate (Oscal) 500 mg PO BID [facility] Last Admin: 05/21/18 10:26 Dose: 500 mg Cholecalciferol (Vitamin D) 1,000 intlu PO BID [facility] Last Admin: 05/21/18 10:27 Dose: 1,000 intlu Dimethicone (Proshield Plus Skin Protectant) 1 applic TOP Q8 [facility] Last Admin: 05/26/18 09:49 Dose: 1 applic Donepezil HCl (Aricept) 5 mg PO HS [facility] Last Admin: 05/20/18 21:28 Dose: 5 mg Enalaprilat (Vasotec) 2.5 mg IV Q8 [facility] Last Admin: 05/26/18 09:50 Dose: 2.5 mg Fluticasone Propionate (Flonase) 2 spr ASAD DAILY [facility] Last Admin: 05/26/18 09:47 Dose: 2 spr Clindamycin Phosphate 600 mg/ (Sodium Chloride) 104 mls @ 104 mls/hr IVPB Q12 [facility]; Protocol Last Admin: 05/26/18 09:45 Dose: 104 mls/hr Meropenem 500 mg/ Sodium (Chloride) 100 mls @ 100 mls/hr IVPB Q8 [facility]; Protocol Last Admin: 05/26/18 09:47 Dose: 100 mls/hr Fluconazole (Diflucan Iv 100 Mg/50 Ml Ns) 50 mls @ 50 mls/hr IVPB DAILY@1400 [facility]; Protocol Last Admin: 05/25/18 15:20 Dose: 50 mls/hr Ipratropium [place] (Atrovent) 0.5 mg IH RQ8 [facility] Last Admin: 05/26/18 07:42 Dose: 0.5 mg Levalbuterol HCl (Xopenex) 0.63 mg INH RQ8 PRN PRN Reason: Shortness of Breath Last Admin: 05/26/18 07:41 Dose: 0.63 mg Memantine (Namenda) 5 mg PO Q12 [facility] Last Admin: 05/21/18 10:25 Dose: 5 mg Multivitamins/Minerals (Therapeutic-M Tab) 1 tab PO DAILY [facility] Last Admin: 05/21/18 10:27 Dose: 1 tab Nystatin (Nystop Topical Powder) 1 applic TOP Q8H [facility] Last Admin: 05/26/18 09:48 Dose: 1 applic Pantoprazole Sodium (Protonix Inj) 40 mg IVP DAILY [facility] Last Admin: 05/26/18 09:49 Dose: 40 mg Senna/Docusate Sodium (Senokot S 50 Mg-8.6 Mg) 1 tab PO HS [facility] Last Admin: 05/20/18 21:29 Dose: 1 tab Tamsulosin HCl (Flomax) 0.4 mg PO QPM [facility] Last Admin: 05/20/18 17:19 Dose: 0.4 mg Vitamin A (Vitamin A & D Oint Ud Foilpak) 1 ea TOP BID [facility] Last Admin: 05/26/18 09:50 Dose: 1 ea - Labs Labs: 05/26/18 04:30 05/26/18 04:30 PT 15.7 Seconds (9.8-13.1) H 05/12/18 07:50 INR 1.4 05/12/18 07:50 APTT 34.4 Seconds (25.6-37.1) 05/12/18 07:50 - Head Exam Head Exam: NORMOCEPHALIC - Respiratory Exam Respiratory Exam: Rhonchi - Cardiovascular Exam Cardiovascular Exam: REGULAR RHYTHM - GI/Abdominal Exam GI & Abdominal Exam: Soft, Normal Bowel Sounds Assessment and Plan - Assessment and Plan (Free Text) Assessment: 82 yo male with sepsis and dysphagia ID input tube feeds as indicated prognosis guarded
--- NOTE | 2018-05-26 14:11 | CP.PCM.PN ---
Subjective - Date & Time of Evaluation Date of Evaluation: 05/26/18 Time of Evaluation: 12:30 - Subjective Subjective: F/U Asp. PNA Respiratory Failure. Pt intubated, sedated. Objective - Vital Signs/Intake and Output Vital Signs (last 24 hours): Temp Pulse Resp BP Pulse Ox 100.4 F H 79 25 H 107/52 L 99 05/26/18 12:00 05/26/18 12:00 05/26/18 12:00 05/26/18 12:00 05/26/18 12:00 Intake and Output: 05/26/18 05/26/18 06:59 18:59 Intake Total 1730 1790 Output Total 300 325 Balance 1430 1465 - Medications Medications: Current Medications Acetaminophen (Tylenol 650 Mg Supp) 650 mg IA Q6 PRN PRN Reason: Fever >100.4 F Last Admin: 05/26/18 12:06 Dose: 650 mg Acetylcysteine (Mucomyst 10% 4ml) 2 ml IH RQ8 [facility] Last Admin: 05/26/18 07:41 Dose: 2 ml Alendronate Sodium (Fosamax) 70 mg PO FR [facility] Last Admin: 05/21/18 10:29 Dose: 70 mg Artificial Tears (Artificial Tears) 2 drop OU Q6 [facility] Last Admin: 05/26/18 09:45 Dose: 2 drop Bisacodyl (Dulcolax) 10 mg IA DAILY PRN PRN Reason: No bowel movement after 3 days Calcium Carbonate (Oscal) 500 mg PO BID [facility] Last Admin: 05/21/18 10:26 Dose: 500 mg Cholecalciferol (Vitamin D) 1,000 intlu PO BID [facility] Last Admin: 05/21/18 10:27 Dose: 1,000 intlu Dimethicone (Proshield Plus Skin Protectant) 1 applic TOP Q8 [facility] Last Admin: 05/26/18 09:49 Dose: 1 applic Donepezil HCl (Aricept) 5 mg PO HS [facility] Last Admin: 05/20/18 21:28 Dose: 5 mg Enalaprilat (Vasotec) 2.5 mg IV Q8 [facility] Last Admin: 05/26/18 09:50 Dose: 2.5 mg Fluticasone Propionate (Flonase) 2 spr ASAD DAILY [facility] Last Admin: 05/26/18 09:47 Dose: 2 spr Clindamycin Phosphate 600 mg/ (Sodium Chloride) 104 mls @ 104 mls/hr IVPB Q12 [facility]; Protocol Last Admin: 05/26/18 09:45 Dose: 104 mls/hr Meropenem 500 mg/ Sodium (Chloride) 100 mls @ 100 mls/hr IVPB Q8 [facility]; Protocol Last Admin: 05/26/18 09:47 Dose: 100 mls/hr Fluconazole (Diflucan Iv 100 Mg/50 Ml Ns) 50 mls @ 50 mls/hr IVPB DAILY@1400 [facility]; Protocol Last Admin: 05/25/18 15:20 Dose: 50 mls/hr Ipratropium [place] (Atrovent) 0.5 mg IH RQ8 [facility] Last Admin: 05/26/18 07:42 Dose: 0.5 mg Levalbuterol HCl (Xopenex) 0.63 mg INH RQ8 PRN PRN Reason: Shortness of Breath Last Admin: 05/26/18 07:41 Dose: 0.63 mg Memantine (Namenda) 5 mg PO Q12 [facility] Last Admin: 05/21/18 10:25 Dose: 5 mg Multivitamins/Minerals (Therapeutic-M Tab) 1 tab PO DAILY [facility] Last Admin: 05/21/18 10:27 Dose: 1 tab Nystatin (Nystop Topical Powder) 1 applic TOP Q8H [facility] Last Admin: 05/26/18 09:48 Dose: 1 applic Pantoprazole Sodium (Protonix Inj) 40 mg IVP DAILY [facility] Last Admin: 05/26/18 09:49 Dose: 40 mg Senna/Docusate Sodium (Senokot S 50 Mg-8.6 Mg) 1 tab PO HS [facility] Last Admin: 05/20/18 21:29 Dose: 1 tab Tamsulosin HCl (Flomax) 0.4 mg PO QPM [facility] Last Admin: 05/20/18 17:19 Dose: 0.4 mg Vitamin A (Vitamin A & D Oint Ud Foilpak) 1 ea TOP BID [facility] Last Admin: 05/26/18 09:50 Dose: 1 ea - Labs Labs: 05/26/18 04:30 05/26/18 04:30 PT 15.7 Seconds (9.8-13.1) H 05/12/18 07:50 INR 1.4 05/12/18 07:50 APTT 34.4 Seconds (25.6-37.1) 05/12/18 07:50 - Constitutional Appears: Chronically Ill - Head Exam Head Exam: NORMAL INSPECTION - Eye Exam Additional comments: L eye deviated laterally - ENT Exam Additional comments: Intubated. OGT - Neck Exam Neck Exam: Normal Inspection - Respiratory Exam Respiratory Exam: Decreased Breath Sounds (at bases), Rhonchi (b/l) - Cardiovascular Exam Cardiovascular Exam: Tachycardia - GI/Abdominal Exam GI & Abdominal Exam: Soft, Normal Bowel Sounds - Exam Additional comments: Cerrato Cath - Extremities Exam Extremities Exam: Normal Inspection - Neurological Exam Additional comments: Intubated, lethargic, open eyes to verbal stimuli, generalized weakness. - Skin Skin Exam: Warm Assessment and Plan (1) Respiratory failure Status: Acute (2) Aspiration pneumonia Status: Acute (3) E. coli UTI Status: Acute (4) Fever Status: Resolved (5) Sepsis syndrome Status: Acute (6) Hypoxemia Status: Chronic (7) Esophageal dilatation Status: Chronic (8) Dementia Status: Chronic (9) HTN (hypertension) Status: Chronic (10) DMII (diabetes mellitus, type 2) Status: Chronic - Assessment and Plan (Free Text) Plan: Discussed with ID to continue Aury Gottlieb Merren, to have Bronchoscopy Critical care time: 32 min.
[2018-05-26] MEDS: Fluconazole IV 100mg/50 ml NS 50 ML IVPB SCH (19:24)
[2018-05-26] MEDS ORDERED: Potassium Chl 40 mEq in D5-1/2 1,000 ML IV SCH (19:30)
--- NOTE | 2018-05-26 21:00 | CON ---
DATE: 05/25/2018 REFERRING DOCTOR: Ramiro Hernández MD REASON FOR CONSULTATION: Dysphagia. HISTORY OF PRESENT ILLNESS: This is an 82-year-old [facility], demented, evaluation for fevers and failure to thrive. The patient is a poor historian and demented. History was obtained from chart and staff. The patient is currently lying in bed, intubated. No apparent distress. PAST MEDICAL HISTORY: As above. PAST SURGICAL HISTORY: As above. MEDICATIONS: Reviewed. REVIEW OF SYSTEMS: All other systems have been obtained. PHYSICAL EXAMINATION: VITAL SIGNS: Here in the hospital are grossly unremarkable. GENERAL: This is a pleasant elderly-appearing man, lying in bed comfortable, in no apparent distress. HEENT: Head is normocephalic and atraumatic. Eyes: Pupils are equally reactive to light bilaterally. No conjunctival pallor or icterus. NECK: Supple. Normal range of motion. No lymphadenopathy appreciated. LUNGS: Coarse breath sounds bilaterally. HEART: S1 and S2. Regular rate and rhythm. ABDOMEN: Soft, nontender. Bowel sounds present. No rebound. No guarding. RECTAL: Deferred. EXTREMITIES: Pulses felt bilaterally. SKIN: Warm, dry, and intact. NEUROLOGIC: A and O x1. LABORATORY DATA: Labs and radiology have been reviewed. WBC 22.8 up from 17, hemoglobin 9.8 stable, platelet count is 274. Sodium 150, potassium 3.5, total bilirubin 1.6. ASSESSMENT AND PLAN: This is an 82-year-old man with sepsis. Infectious Disease input greatly appreciated. Antibiotics per primary care team. From Gastrointestinal standpoint, tube feeds for now. No indication for percutaneous endoscopic gastrostomy in this acute setting. Thank you for the consult. Red Rosario MD/ PhD
[2018-05-26] MEDS: Acetaminophen 650mg/20.3ml solution UD PO PRN (21:08)
[2018-05-27] MEDS: Levalbuterol 0.63 MG/3 ML Inhal Soln UD INH PRN ×2 (00:05→23:56)
[2018-05-27] MEDS: Acetylcysteine 10% 4 ML IH SCH ×3 (00:06→23:56)
[2018-05-27] MEDS: Ipratropium 0.02% Inhal Soln (0.5 mg/2.5 ml) UD IH SCH ×3 (00:06→23:56)
[2018-05-27] MEDS: Proshield Plus GEL TOP SCH ×3 (01:50→16:18)
[2018-05-27] MEDS: Meropenem 500 MG in Sodium Chloride 0.9% 100 ML IVPB SCH ×2 (01:51→08:21)
[2018-05-27] MEDS: Enalaprilat 2.5 MG/2 ML IV SCH (01:52)
[2018-05-27] MEDS: Acetaminophen 650mg/20.3ml solution UD PO PRN ×4 (02:34→21:46)
[2018-05-27] MEDS: Artificial Tears Opht Soln OU SCH ×4 (04:00→21:11)
[2018-05-27 05:34] LABS: BASO % 0.1 % (0.0-2.0); EOS % 0.1 % (0.0-4.0); HEMOGLOBIN 8.8 g/dL (12.0-18.0); LYMPH # 0.4 K/uL (1.0-4.3); LYMPH % 1.5 % (20.0-40.0); MEAN CELL VOLUME 84.6 fl (80.0-94.0); MEAN CORPUSCULAR HEMOGLOBIN 26.8 pg (27.0-31.0); MEAN CORPUSCULAR HGB CONC 31.6 g/dL (33.0-37.0); MEAN PLATELET VOLUME 9.5 fl (7.2-11.7); MONO # 0.5 K/uL (0.0-0.8); MONO % 2.1 % (0.0-10.0); NEUT # 23.2 K/uL (1.8-7.0); NEUT % 96.2 % (50.0-75.0); NRBC % 0.1 % (0.0-0.0); PLATELET COUNT 212 K/uL (130-400); RBC 3.28 Mil/uL (4.40-5.90); WHITE BLOOD COUNT 24.2 K/uL (4.8-10.8)
[2018-05-27 05:35] LABS: BLOOD UREA NITROGEN 47 mg/dl (9-20); CALCIUM 8.1 mg/dL (8.4-10.2); GFR NON-AFRICAN AMERICAN > 60
[2018-05-27 05:54] LABS: ABG ALLEN TEST YES; ARTERIAL BLOOD GAS HCO3 27.3 mmol/L (21-28); ARTERIAL BLOOD GAS PCO2 49 mm/Hg (35-45); ARTERIAL BLOOD GAS PH 7.38 (7.35-7.45); ARTERIAL BLOOD GAS PO2 95 mm/Hg (80-100); ARTERIAL BLOOD GAS TCO2 30.5 mmol/L (22-28)
--- NOTE | 2018-05-27 07:55 | CP.CCUPN ---
CCU Subjective - Physician Review Subjective (Free Text): Not sedated, off sedation since yesterday afternoon; eyes spontaneously open, but not interactive,. Nor following any specific commands; on MV, breathing 22 on AC 14, TV 500ml, SPo2 98% on 60% fiO2. + 101.1F FEVER spike overnight, but now with Ts in the 99F range. SBPs 120s, HR 110s sinus. No further recurrent tachyarrythmias. Other vitals and I/O's reviewed. Fluid balance positive 2.5L out last 24H. On OGT feed with Glucerna 45 ml/hr; and IVFs at 80 ml/hr. ROS: No other pertinent negs or positives on 10+ system review obtainable due to sedation. PMSFH: All other Nursing and physician documentation reviewed to date; no new pertinent info noted relevant to current medical problems. EXAM- HEENT: no icterus, no gaze preference, pupils reactive, no nystagmus NECK: no JVD visible, supple, carotids equal upstroke bilat/no bruit CHEST: decreased BS at the bases, no wheezes audible HEART: regular, distant, S1S2, no rubs ABD: soft, no distension, no focal tenderness, no tympany, no guarding, no organomegaly, BS hypoactive. EXT: + LE edema, no mottling; no calf tenderness or palpable cords, distal pulses intact and symmetrical, no cyanosis, no mottling. NEURO: + tone, withdraws to pain x 4. SKIN: no rashes, warm and dry LABS: WBC= 22.4 HGB= 8.7 PLTs= 204K 7.37/48/102 Na= 148 K= 4.1 CL= 111 HCO3= 28 BUN/Cr= 54/1.1 BS= 278 CXR; (my interp) ETT position OK above brianne, marked R sided infiltrates worse than Left. IMPRESSION / MAJOR PROBLEMS NOW: 1. Acute hypoxemic resp failure 2 Bilateral pneumonia 2. Severe Sepsis with Shock 2 #1, r/o Bacteremia, + E.coli UTI 3. s/p Paroxysmal A Fib with RVR 4. s/p Hyponatremia with Azotemia/ Dehydration 5. h/o Dementia PLAN: 1. Day #3 MV support, try decreasing FIo2, remains on empiric abx / afx coverage. CXR pattern overall unchanged. Consider FOB for non-resolving PNA. Repeat sputum Cx show yeast. Bllod Cxs negative so far. 2. Ongoing hydration, improved BUN / Cr today, could stop IVFs and give free water, follow serum Na levels, too. 3. Decrease sedation, use only for vent asynchrony, review of notes show baseline mental status was not very functional, +non-verbal but opens eyes to verbal name calling and could perform some simple commands. 4. Discontinue IV Enalaprilat, essentially normotensive. 5. Needs PICC line. Time spent with this patient did not overlap with any other provider's medical or critical care time. Additionally the code selected for the services rendered in this note includes the time spent: talking to the patients family, associated physicians and reviewing hospital data/results not listed here which extended to a total of 35 minutes.
[2018-05-27] MEDS: Clindamycin 600 MG in Sodium Chloride 0.9% 100 ML IVPB SCH ×2 (09:07→21:09)
--- NOTE | 2018-05-27 09:58 | RAD ---
Date of service: 05/27/2018 HISTORY: reevaluate; Intubated ETT COMPARISON: 05/27/2018 FINDINGS: Endotracheal tube is low in position and terminates at the brianne. The nasogastric tube terminates in the stomach. LUNGS: The lungs are well inflated. There is interval mild improved aeration in the right lower lobe with persistent confluent airspace disease in the right upper lobe. There is mild diffuse interstitial thickening in the lower lobes. PLEURA: No pleural effusions or pneumothorax. CARDIOVASCULAR: The heart is normal in size. There are aortic atherosclerotic calcifications present. OSSEOUS STRUCTURES: Within normal limits for the patient's age. VISUALIZED UPPER ABDOMEN: Normal. OTHER FINDINGS: None. IMPRESSION: Endotracheal tube is low in position and terminates at the brianne. Repositioning is recommended. Interval mild improved aeration in the lungs with persistent right upper lobe pneumonia. Question of interstitial edema versus thickening versus pneumonitis versus fibrosis in the lower lobes.
--- NOTE | 2018-05-27 10:20 | CP.PCM.PN ---
Subjective - Date & Time of Evaluation Date of Evaluation: 05/27/18 Time of Evaluation: 10:17 - Subjective Subjective: Infectious disease note Patient was seen and examined today in the ICU. Patient remains intubated and lethargic. No diarrhea as per nurse. Objective - Vital Signs/Intake and Output Vital Signs (last 24 hours): Temp Pulse Resp BP Pulse Ox 99.9 F H 126 H 17 141/72 99 05/27/18 08:00 05/27/18 10:00 05/27/18 10:00 05/27/18 10:00 05/27/18 10:00 Intake and Output: 05/27/18 05/27/18 06:59 18:59 Intake Total 1590 275 Output Total 650 Balance 940 275 - Medications Medications: Current Medications Acetaminophen (Tylenol 650mg/20.3ml Solution Ud) 650 mg PO Q4 PRN PRN Reason: Temperature Last Admin: 05/27/18 02:34 Dose: 650 mg Acetylcysteine (Mucomyst 10% 4ml) 2 ml IH RQ8 KEN Last Admin: 05/27/18 00:06 Dose: 2 ml Alendronate Sodium (Fosamax) 70 mg PO FR KEN Last Admin: 05/21/18 10:29 Dose: 70 mg Artificial Tears (Artificial Tears) 2 drop OU Q6 KEN Last Admin: 05/27/18 09:08 Dose: 2 drop Bisacodyl (Dulcolax) 10 mg MT DAILY PRN PRN Reason: No bowel movement after 3 days Calcium Carbonate (Oscal) 500 mg PO BID [facility] Last Admin: 05/21/18 10:26 Dose: 500 mg Cholecalciferol (Vitamin D) 1,000 intlu PO BID KEN Last Admin: 05/21/18 10:27 Dose: 1,000 intlu Dimethicone (Proshield Plus Skin Protectant) 1 applic TOP Q8 KEN Last Admin: 05/27/18 08:20 Dose: 1 applic Donepezil HCl (Aricept) 5 mg PO HS KEN Last Admin: 05/20/18 21:28 Dose: 5 mg Fluticasone Propionate (Flonase) 2 spr ASAD DAILY KEN Last Admin: 05/27/18 08:24 Dose: 2 spr Clindamycin Phosphate 600 mg/ (Sodium Chloride) 104 mls @ 104 mls/hr IVPB Q12 KEN; Protocol Last Admin: 05/27/18 09:07 Dose: 104 mls/hr Meropenem 500 mg/ Sodium (Chloride) 100 mls @ 100 mls/hr IVPB Q8 KEN; Protocol Last Admin: 05/27/18 08:21 Dose: 100 mls/hr Fluconazole (Diflucan Iv 100 Mg/50 Ml Ns) 50 mls @ 50 mls/hr IVPB DAILY@1400 KEN; Protocol Last Admin: 05/26/18 19:24 Dose: 50 mls/hr Vancomycin HCl 750 mg/ Sodium (Chloride) 250 mls @ 166.667 mls/hr IVPB Q12 KEN; Protocol Last Admin: 05/26/18 21:09 Dose: 166.667 mls/hr Ipratropium [place] (Atrovent) 0.5 mg IH RQ8 KEN Last Admin: 05/27/18 00:06 Dose: 0.5 mg Levalbuterol HCl (Xopenex) 0.63 mg INH RQ8 PRN PRN Reason: Shortness of Breath Last Admin: 05/27/18 00:05 Dose: 0.63 mg Memantine (Namenda) 5 mg PO Q12 KEN Last Admin: 05/21/18 10:25 Dose: 5 mg Multivitamins/Minerals (Therapeutic-M Tab) 1 tab PO DAILY KEN Last Admin: 05/21/18 10:27 Dose: 1 tab Nystatin (Nystop Topical Powder) 1 applic TOP Q8H KEN Last Admin: 05/27/18 02:35 Dose: 1 applic Pantoprazole Sodium (Protonix Inj) 40 mg IVP DAILY KEN Last Admin: 05/27/18 08:19 Dose: 40 mg Senna/Docusate Sodium (Senokot S 50 Mg-8.6 Mg) 1 tab PO HS KEN Last Admin: 05/20/18 21:29 Dose: 1 tab Tamsulosin HCl (Flomax) 0.4 mg PO QPM KEN Last Admin: 05/20/18 17:19 Dose: 0.4 mg Vitamin A (Vitamin A & D Oint Ud Foilpak) 1 ea TOP BID KEN Last Admin: 05/26/18 19:27 Dose: 1 ea - Labs Labs: - Additional Findings Additional findings: - Constitutional Appears: Chronically Ill - ENT Exam Additional comments: ET tube in place - Respiratory Exam Additional comments: decreased breath sounds on the entire right side - Cardiovascular Exam Cardiovascular Exam: Tachycardia, +S1, +S2 - GI/Abdominal Exam GI & Abdominal Exam: Soft, Normal Bowel Sounds Additional comments: ND, NT - Extremities Exam Extremities Exam: Normal Inspection - Neurological Exam Additional comments: Intubated and lethargic Laboratory Results - last 72 hr 05/24/18 05/24/18 05/24/18 11:36 14:05 16:07 WBC RBC Hgb Hct MCV MCH MCHC RDW Plt Count MPV Neut % (Auto) Lymph % (Auto) Bond % (Auto) Eos % (Auto) Baso % (Auto) Neut # (Auto) Lymph # (Auto) Bond # (Auto) Eos # (Auto) Baso # (Auto) Neutrophils % (Manual) Band Neutrophils % Lymphocytes % (Manual) Monocytes % (Manual) Eosinophils % (Manual) Myelocytes % Platelet Estimate Plt Clumps, EDTA Hypochromasia (manual) Anisocytosis (manual) Tear Drop Cells Ovalocytes [place] Cells Schistocytes pCO2 pO2 HCO3 ABG pH ABG Total CO2 ABG O2 Saturation ABG O2 Content ABG Base Excess ABG Hemoglobin ABG Carboxyhemoglobin POC ABG HHb (Measured) ABG Methemoglobin ABG O2 Capacity [place] Test ABG Potassium A-a O2 Difference Hgb O2 Saturation Glucose Lactate Vent Mode Mechanical Rate FiO2 Tidal Volume PEEP Sodium Potassium Chloride Carbon Dioxide Anion Gap BUN Creatinine Est GFR ( Amer) Est GFR (Non-Af Amer) POC Glucose (mg/dL) 160 H 170 H Random Glucose Calcium Total Bilirubin AST ALT Alkaline Phosphatase Troponin I 0.0620 Total Protein Albumin Globulin Albumin/Globulin Ratio Arterial Blood Potassium 05/24/18 05/25/18 05/25/18 21:38 04:00 04:40 WBC 22.8 H RBC 3.69 L Hgb 9.8 L Hct 31.6 L MCV 85.6 D MCH 26.6 L MCHC 31.0 L RDW 15.8 H Plt Count 274 MPV 9.3 Neut % (Auto) 95.5 H Lymph % (Auto) 1.1 L Bond % (Auto) 3.3 Eos % (Auto) 0.0 Baso % (Auto) 0.1 Neut # (Auto) 21.8 H Lymph # (Auto) 0.3 L Bond # (Auto) 0.7 Eos # (Auto) 0.0 Baso # (Auto) 0.0 Neutrophils % (Manual) 92 H Band Neutrophils % 4 H Lymphocytes % (Manual) 1 L Monocytes % (Manual) 3 Eosinophils % (Manual) Myelocytes % Platelet Estimate Normal Plt Clumps, EDTA Present Hypochromasia (manual) Slight Anisocytosis (manual) Slight Tear Drop Cells Slight Ovalocytes Slight [place] Cells Schistocytes pCO2 57 H pO2 228 H HCO3 26.8 ABG pH 7.32 L ABG Total CO2 31.1 H ABG O2 Saturation 99.6 H ABG O2 Content 14.3 L ABG Base Excess 2.4 ABG Hemoglobin 10.0 L ABG Carboxyhemoglobin 0.5 POC ABG HHb (Measured) 0.4 ABG Methemoglobin 1.6 ABG O2 Capacity 14.4 L Forrest Test Yes ABG Potassium A-a O2 Difference 414.0 Hgb O2 Saturation 97.5 Glucose Lactate Vent Mode A/c Mechanical Rate 14 FiO2 100.0 Tidal Volume 500 PEEP 5 Sodium Potassium Chloride Carbon Dioxide Anion Gap BUN Creatinine Est GFR ( Amer) Est GFR (Non-Af Amer) POC Glucose (mg/dL) Random Glucose Calcium Total Bilirubin AST ALT Alkaline Phosphatase Troponin I 0.0800 Total Protein Albumin Globulin Albumin/Globulin Ratio Arterial Blood Potassium 05/25/18 05/25/18 05/25/18 04:40 11:45 16:45 WBC RBC Hgb Hct MCV MCH MCHC RDW Plt Count MPV Neut % (Auto) Lymph % (Auto) Bond % (Auto) Eos % (Auto) Baso % (Auto) Neut # (Auto) Lymph # (Auto) Bond # (Auto) Eos # (Auto) Baso # (Auto) Neutrophils % (Manual) Band Neutrophils % Lymphocytes % (Manual) Monocytes % (Manual) Eosinophils % (Manual) Myelocytes % Platelet Estimate Plt Clumps, EDTA Hypochromasia (manual) Anisocytosis (manual) Tear Drop Cells Ovalocytes Cuate Cells Schistocytes pCO2 pO2 HCO3 ABG pH ABG Total CO2 ABG O2 Saturation ABG O2 Content ABG Base Excess ABG Hemoglobin ABG Carboxyhemoglobin POC ABG HHb (Measured) ABG Methemoglobin ABG O2 Capacity [place] Test ABG Potassium A-a O2 Difference Hgb O2 Saturation Glucose Lactate Vent Mode Mechanical Rate FiO2 Tidal Volume PEEP Sodium 150 H Potassium 3.5 L Chloride 112 H Carbon Dioxide 26 Anion Gap 16 BUN 34 H Creatinine 0.8 Est GFR ( Amer) > 60 Est GFR (Non-Af Amer) > 60 POC Glucose (mg/dL) 150 H 171 H Random Glucose 179 H Calcium 7.9 L Total Bilirubin 1.6 H AST 40 ALT 38 Alkaline Phosphatase 105 Troponin I Total Protein 6.4 Albumin 2.6 L Globulin 3.8 Albumin/Globulin Ratio 0.7 L Arterial Blood Potassium 05/25/18 05/26/18 05/26/18 21:04 04:30 04:30 WBC 22.4 H RBC 3.24 L Hgb 8.7 L Hct 27.5 L MCV 85.0 MCH 26.8 L MCHC 31.5 L RDW 15.5 H Plt Count 204 MPV Neut % (Auto) Lymph % (Auto) Bond % (Auto) Eos % (Auto) Baso % (Auto) Neut # (Auto) Lymph # (Auto) Bond # (Auto) Eos # (Auto) Baso # (Auto) Neutrophils % (Manual) Band Neutrophils % Lymphocytes % (Manual) Monocytes % (Manual) Eosinophils % (Manual) Myelocytes % Platelet Estimate Plt Clumps, EDTA Hypochromasia (manual) Anisocytosis (manual) Tear Drop Cells Ovalocytes Cuate Cells Schistocytes pCO2 pO2 HCO3 ABG pH ABG Total CO2 ABG O2 Saturation ABG O2 Content ABG Base Excess ABG Hemoglobin ABG Carboxyhemoglobin POC ABG HHb (Measured) ABG Methemoglobin ABG O2 Capacity [place] Test ABG Potassium A-a O2 Difference Hgb O2 Saturation Glucose Lactate Vent Mode Mechanical Rate FiO2 Tidal Volume PEEP Sodium 148 Potassium 4.1 Chloride 111 H Carbon Dioxide 28 Anion Gap 13 BUN 54 H Creatinine 1.1 Est GFR ( Amer) > 60 Est GFR (Non-Af Amer) > 60 POC Glucose (mg/dL) 229 H Random Glucose 278 H Calcium 7.7 L Total Bilirubin 0.8 AST 27 ALT 38 Alkaline Phosphatase 83 Troponin I Total Protein 5.8 L Albumin 2.5 L Globulin 3.3 Albumin/Globulin Ratio 0.8 L Arterial Blood Potassium 05/26/18 05/26/18 05/26/18 04:39 05:45 17:02 WBC RBC Hgb Hct MCV MCH MCHC RDW Plt Count MPV Neut % (Auto) Lymph % (Auto) Bond % (Auto) Eos % (Auto) Baso % (Auto) Neut # (Auto) Lymph # (Auto) Bond # (Auto) Eos # (Auto) Baso # (Auto) Neutrophils % (Manual) Band Neutrophils % Lymphocytes % (Manual) Monocytes % (Manual) Eosinophils % (Manual) Myelocytes % Platelet Estimate Plt Clumps, EDTA Hypochromasia (manual) Anisocytosis (manual) Tear Drop Cells Ovalocytes [place] Cells Schistocytes pCO2 48 H pO2 102 H HCO3 26.5 ABG pH 7.37 ABG Total CO2 29.2 H ABG O2 Saturation 100.9 H ABG O2 Content 12.5 L ABG Base Excess 2.0 ABG Hemoglobin 8.9 L ABG Carboxyhemoglobin 1.5 POC ABG HHb (Measured) -0.9 L ABG Methemoglobin 0.8 ABG O2 Capacity 12.4 L Forrest Test Yes ABG Potassium A-a O2 Difference 266.0 Hgb O2 Saturation 98.5 H Glucose Lactate Vent Mode A/c Mechanical Rate 14 FiO2 60.0 Tidal Volume 500 PEEP 5 Sodium Potassium Chloride Carbon Dioxide Anion Gap BUN Creatinine Est GFR ( Amer) Est GFR (Non-Af Amer) POC Glucose (mg/dL) 247 H 177 H Random Glucose Calcium Total Bilirubin AST ALT Alkaline Phosphatase Troponin I Total Protein Albumin Globulin Albumin/Globulin Ratio Arterial Blood Potassium 05/26/18 05/27/18 05/27/18 20:55 04:30 04:30 WBC 24.2 H RBC 3.28 L Hgb 8.8 L Hct 27.8 L MCV 84.6 MCH 26.8 L MCHC 31.6 L RDW 16.0 H Plt Count 212 MPV 9.5 Neut % (Auto) 96.2 H Lymph % (Auto) 1.5 L Bond % (Auto) 2.1 Eos % (Auto) 0.1 Baso % (Auto) 0.1 Neut # (Auto) 23.2 H Lymph # (Auto) 0.4 L Bond # (Auto) 0.5 Eos # (Auto) 0.0 Baso # (Auto) 0.0 Neutrophils % (Manual) 94 H Band Neutrophils % 2 Lymphocytes % (Manual) 1 L Monocytes % (Manual) Eosinophils % (Manual) 2 Myelocytes % 1 H Platelet Estimate Normal Plt Clumps, EDTA Hypochromasia (manual) Moderate Anisocytosis (manual) Slight Tear Drop Cells Slight Ovalocytes Slight [place] Cells Slight Schistocytes Slight pCO2 pO2 HCO3 ABG pH ABG Total CO2 ABG O2 Saturation ABG O2 Content ABG Base Excess ABG Hemoglobin ABG Carboxyhemoglobin POC ABG HHb (Measured) ABG Methemoglobin ABG O2 Capacity [place] Test ABG Potassium A-a O2 Difference Hgb O2 Saturation Glucose Lactate Vent Mode Mechanical Rate FiO2 Tidal Volume PEEP Sodium 149 H Potassium 4.5 Chloride 112 H Carbon Dioxide 28 Anion Gap 14 BUN 47 H Creatinine 0.9 Est GFR ( Amer) > 60 Est GFR (Non-Af Amer) > 60 POC Glucose (mg/dL) 157 H Random Glucose 155 H Calcium 8.1 L Total Bilirubin AST ALT Alkaline Phosphatase Troponin I Total Protein Albumin Globulin Albumin/Globulin Ratio Arterial Blood Potassium 05/27/18 05/27/18 05:19 05:41 WBC RBC Hgb Hct MCV MCH MCHC RDW Plt Count MPV Neut % (Auto) Lymph % (Auto) Bond % (Auto) Eos % (Auto) Baso % (Auto) Neut # (Auto) Lymph # (Auto) Bond # (Auto) Eos # (Auto) Baso # (Auto) Neutrophils % (Manual) Band Neutrophils % Lymphocytes % (Manual) Monocytes % (Manual) Eosinophils % (Manual) Myelocytes % Platelet Estimate Plt Clumps, EDTA Hypochromasia (manual) Anisocytosis (manual) Tear Drop Cells Ovalocytes [place] Cells Schistocytes pCO2 49 H pO2 95 HCO3 27.3 ABG pH 7.38 ABG Total CO2 30.5 H ABG O2 Saturation 99.0 H ABG O2 Content ABG Base Excess 3.0 ABG Hemoglobin ABG Carboxyhemoglobin POC ABG HHb (Measured) ABG Methemoglobin ABG O2 Capacity Forrest Test Yes ABG Potassium 4.6 A-a O2 Difference 272.0 Hgb O2 Saturation Glucose 163 H Lactate 1.6 Vent Mode A/c Mechanical Rate 500 FiO2 60.0 Tidal Volume 14 PEEP 5 Sodium 147.0 Potassium Chloride 120.0 H Carbon Dioxide Anion Gap BUN Creatinine Est GFR ( Amer) Est GFR (Non-Af Amer) POC Glucose (mg/dL) 154 H Random Glucose Calcium Total Bilirubin AST ALT Alkaline Phosphatase Troponin I Total Protein Albumin Globulin Albumin/Globulin Ratio Arterial Blood Potassium 4.6 Microbiology 05/24/18 14:15 Blood-Venous Blood Culture - Preliminary NO GROWTH AFTER 48 HOURS 05/24/18 14:00 Blood-Venous Blood Culture - Preliminary NO GROWTH AFTER 48 HOURS 05/24/18 15:00 Sputum Gram Stain - Final 05/24/18 15:00 Sputum Sputum Culture - Final Yeast Species 05/24/18 09:35 Urine,Catheterized Urine Culture - Final No Growth (<1,000 CFU/ML) 05/20/18 15:31 Blood-Venous Blood Culture - Final NO GROWTH AFTER 5 DAYS 05/20/18 15:31 Blood-Venous Gram Stain - Final TEST NOT PERFORMED 05/20/18 15:42 Blood-Venous Blood Culture - Final NO GROWTH AFTER 5 DAYS 05/20/18 15:42 Blood-Venous Gram Stain - Final TEST NOT PERFORMED 05/24/18 09:35 Naris MRSA Culture (Admit) - Final MRSA NOT DETECTED 05/21/18 16:57 Sputum Induced Gram Stain - Final 05/21/18 16:57 Sputum Induced Sputum Culture - Final Yeast Species 05/12/18 07:50 Blood Blood Culture - Final NO GROWTH AFTER 5 DAYS 05/12/18 07:50 Blood Gram Stain - Final TEST NOT PERFORMED 05/12/18 Unknown Blood Blood Culture - Final NO GROWTH AFTER 5 DAYS 05/12/18 Unknown Blood Gram Stain - Final TEST NOT PERFORMED 05/12/18 08:40 Urine,Catheterized Urine Culture - Final Escherichia Coli Accession No. : [id number] Patient Name / ID : TANNER BOWIE / [id number] Exam Date : 05/27/2018 04:31:01 ( Approved ) Study Comment : Sex / Age : M / 82Y Creator : Amanda Fletcher MD Dictator : Amanda Fletcher MD Mangle Tender : Super[employer] : Amanda Fletcher MD Approver2 : Report Date : 05/27/2018 09:52:29 My Comment : Date of service: 05/27/2018 HISTORY: reevaluate; Intubated ETT COMPARISON: 05/27/2018 FINDINGS: Endotracheal tube is low in position and terminates at the brianne. The nasogastric tube terminates in the stomach. LUNGS: The lungs are well inflated. There is interval mild improved aeration in the right lower lobe with persistent confluent airspace disease in the right upper lobe. There is mild diffuse interstitial thickening in the lower lobes. PLEURA: No pleural effusions or pneumothorax. CARDIOVASCULAR: The heart is normal in size. There are aortic atherosclerotic calcifications present. OSSEOUS STRUCTURES: Within normal limits for the patient's age. VISUALIZED UPPER ABDOMEN: Normal. OTHER FINDINGS: None. IMPRESSION: Endotracheal tube is low in position and terminates at the brianne. Repositioning is recommended. Interval mild improved aeration in the lungs with persistent right upper lobe pneumonia. Question of interstitial edema versus thickening versus pneumonitis versus fibrosis in the lower lobes. Assessment and Plan (1) UTI (urinary tract infection) Status: Deleted (2) Sepsis syndrome Status: Acute (3) Fever Status: Resolved (4) Hypoxemia Status: Chronic - Assessment and Plan (Free Text) Assessment: A/P- 82 year old [place] resident male with dementia, admitted with fever initially and had UTI and ? asp pneumonia and was treated with IV antibiotiocs and was fever free and normal wbc and doing ok but few days ago had aspiration pneumonia and hypoxemic and rapid a.fib and is s/p intubation and in ICU. leukocytosis rising despite antibiotics and antifungals low grade fevers. cxr- right side infiltrates and most likely aspiration pneumonia. admission UA- Pos LE, neg Nitrates admission urine cx- E.Coli pansensitive- treated for this already blood cx- neg x 5 sputum cx- yeast PLan- advise to continue with IV meropenem and clindamycin for added anaerobic coverage. also advise to continue with IV fluconazole for yeast in sputum. vanco added yesterday for extra empiric coverage in light of persistent asp iration pneumonitis and rising wbc. Patient might need bronchoscopy for evaluation and treatment of the right sided dense Infiltrates. all labs and imaging and chart notes reviewed. critical care time spent 45 minutes. d/w
[2018-05-27 10:44] LABS: ANISOCYTOSIS SLIGHT; BANDS 2 % (0-2); BURR CELLS SLIGHT; EOSINOPHIL 2 % (0-7); HYPOCHROMIC MODERATE; LYMPHOCYTE 1 % (20-50); MYELOCYTE 1 % (0-0); NEUTROPHIL 94 % (42-75); OVALOCYTES SLIGHT; PLATELET ESTIMATE NORMAL (NORMAL); SCHISTOCYTES SLIGHT; TEARDROP CELLS SLIGHT; TOTAL CELLS COUNTED 100
[2018-05-27] MEDS: Meropenem 1 GM in Sodium Chloride 0.9% 100 ML IVPB SCH ×2 (11:52→16:17)
--- NOTE | 2018-05-27 11:52 | CARD ---
APPROVED REPORT Date of service: 05/26/2018 EKG Measurement Heart [id number] <Conclusion> Normal sinus rhythm Possible Left atrial enlargement Low voltage QRS Septal infarct, age undetermined Abnormal ECG
[2018-05-27 11:56] LABS: MONOCYTE 0 % (0-10)
[2018-05-27] MEDS: Fluconazole IV 100mg/50 ml NS 50 ML IVPB SCH (13:30)
--- NOTE | 2018-05-27 17:08 | CP.PCM.PN ---
Subjective - Date & Time of Evaluation Date of Evaluation: 05/27/18 Time of Evaluation: 10:10 - Subjective Subjective: F/U Respiratory Failure. Pt intubated, sedated with minimal response to tactile stimuli. Objective - Vital Signs/Intake and Output Vital Signs (last 24 hours): Temp Pulse Resp BP Pulse Ox 100.9 F H 77 20 124/60 96 05/27/18 16:00 05/27/18 16:00 05/27/18 16:00 05/27/18 16:00 05/27/18 16:00 Intake and Output: 05/27/18 05/27/18 06:59 18:59 Intake Total 1590 1195 Output Total 650 Balance 940 1195 - Medications Medications: Current Medications Acetaminophen (Tylenol 650mg/20.3ml Solution Ud) 650 mg PO Q4 PRN PRN Reason: Temperature Last Admin: 05/27/18 11:53 Dose: 650 mg Acetylcysteine (Mucomyst 10% 4ml) 2 ml IH RQ8 [facility] Last Admin: 05/27/18 15:42 Dose: 2 ml Alendronate Sodium (Fosamax) 70 mg PO FR KEN Last Admin: 05/21/18 10:29 Dose: 70 mg Artificial Tears (Artificial Tears) 2 drop OU Q6 KEN Last Admin: 05/27/18 16:18 Dose: 2 drop Calcium Carbonate (Oscal) 500 mg PO BID [facility] Last Admin: 05/21/18 10:26 Dose: 500 mg Cholecalciferol (Vitamin D) 1,000 intlu PO BID [facility] Last Admin: 05/21/18 10:27 Dose: 1,000 intlu Dimethicone (Proshield Plus Skin Protectant) 1 applic TOP Q8 [facility] Last Admin: 05/27/18 16:18 Dose: 1 applic Donepezil HCl (Aricept) 5 mg PO HS [facility] Last Admin: 05/20/18 21:28 Dose: 5 mg Fluticasone Propionate (Flonase) 2 spr ASAD DAILY [facility] Last Admin: 05/27/18 08:24 Dose: 2 spr Clindamycin Phosphate 600 mg/ (Sodium Chloride) 104 mls @ 104 mls/hr IVPB Q12 KEN; Protocol Last Admin: 05/27/18 09:07 Dose: 104 mls/hr Fluconazole (Diflucan Iv 100 Mg/50 Ml Ns) 50 mls @ 50 mls/hr IVPB DAILY@1400 KEN; Protocol Last Admin: 05/27/18 13:30 Dose: 50 mls/hr Vancomycin HCl 750 mg/ Sodium (Chloride) 250 mls @ 166.667 mls/hr IVPB Q12 KEN; Protocol Last Admin: 05/27/18 12:24 Dose: 166.667 mls/hr Meropenem 1 gm/ Sodium (Chloride) 100 mls @ 100 mls/hr IVPB Q8 KEN; Protocol Last Admin: 05/27/18 16:17 Dose: 100 mls/hr Ipratropium [place] (Atrovent) 0.5 mg IH RQ8 KEN Last Admin: 05/27/18 15:42 Dose: 0.5 mg Levalbuterol HCl (Xopenex) 0.63 mg INH RQ8 PRN PRN Reason: Shortness of Breath Last Admin: 05/27/18 00:05 Dose: 0.63 mg Memantine (Namenda) 5 mg PO Q12 KEN Last Admin: 05/21/18 10:25 Dose: 5 mg Multivitamins/Minerals (Therapeutic-M Tab) 1 tab PO DAILY KEN Last Admin: 05/21/18 10:27 Dose: 1 tab Nystatin (Nystop Topical Powder) 1 applic TOP Q8H KEN Last Admin: 05/27/18 10:36 Dose: 1 applic Pantoprazole Sodium (Protonix Inj) 40 mg IVP DAILY KEN Last Admin: 05/27/18 08:19 Dose: 40 mg Senna/Docusate Sodium (Senokot S 50 Mg-8.6 Mg) 1 tab PO HS KEN Last Admin: 05/20/18 21:29 Dose: 1 tab Tamsulosin HCl (Flomax) 0.4 mg PO QPM KEN Last Admin: 05/20/18 17:19 Dose: 0.4 mg Vitamin A (Vitamin A & D Oint Ud Foilpak) 1 ea TOP BID KEN Last Admin: 05/26/18 19:27 Dose: 1 ea - Labs Labs: 05/27/18 04:30 05/27/18 04:30 PT 15.7 Seconds (9.8-13.1) H 05/12/18 07:50 INR 1.4 05/12/18 07:50 APTT 34.4 Seconds (25.6-37.1) 05/12/18 07:50 - Constitutional Appears: Chronically Ill - Head Exam Head Exam: NORMAL INSPECTION - Eye Exam Additional comments: L eye deviated laterally - ENT Exam Additional comments: Intubated. OGT - Respiratory Exam Respiratory Exam: Decreased Breath Sounds (at bases), Rhonchi (b/l) - Cardiovascular Exam Cardiovascular Exam: REGULAR RHYTHM - GI/Abdominal Exam GI & Abdominal Exam: Soft, Normal Bowel Sounds - Exam Additional comments: Cerrato Cath - Extremities Exam Extremities Exam: Normal Inspection - Back Exam Additional comments: Sacral ulcer - Neurological Exam Additional comments: Intubated, sedated, minimal response to tactile stimuli - Skin Skin Exam: Warm Assessment and Plan (1) Respiratory failure Status: Acute (2) Aspiration pneumonia Status: Acute (3) E. coli UTI Status: Acute (4) Fever Status: Resolved (5) Sepsis syndrome Status: Acute (6) Hypoxemia Status: Chronic (7) Esophageal dilatation Status: Chronic (8) Dementia Status: Chronic (9) HTN (hypertension) Status: Chronic (10) DMII (diabetes mellitus, type 2) Status: Chronic - Assessment and Plan (Free Text) Plan: CXR: Persistent RUL PNA , improved aeration RLL. Possible Bronchoscopy tomorr ow. Continue Merren, Kyawo, Clinda and rest of Tx. Critical care time: 34 min.
[2018-05-27] MEDS: Vitamins A & D Oint UD Foilpak TOP SCH (17:17)
[2018-05-27] MEDS ORDERED: Sodium Chloride 3% for Inhalation 4 ML VIAL.NEB IH PRN (20:58)
[2018-05-28] MEDS: Proshield Plus GEL TOP SCH ×3 (00:18→17:01)
[2018-05-28] MEDS: Meropenem 1 GM in Sodium Chloride 0.9% 100 ML IVPB SCH ×3 (00:19→17:00)
[2018-05-28] MEDS ORDERED: Metoprolol 1 mg/ml Inj ONE (01:34)
[2018-05-28] MEDS ORDERED: Metoprolol 1 mg/ml Inj IVP STA (01:34)
[2018-05-28] MEDS: Artificial Tears Opht Soln OU SCH ×4 (04:00→21:30)
[2018-05-28 05:22] LABS: BASO # 0.2 K/uL (0.0-0.2); BASO % 1.1 % (0.0-2.0); EOS # 0.1 K/uL (0.0-0.7); EOS % 0.4 % (0.0-4.0); LYMPH # 0.5 K/uL (1.0-4.3); LYMPH % 2.2 % (20.0-40.0); MEAN CELL VOLUME 84.6 fl (80.0-94.0); MEAN CORPUSCULAR HEMOGLOBIN 26.3 pg (27.0-31.0); MEAN CORPUSCULAR HGB CONC 31.1 g/dL (33.0-37.0); MEAN PLATELET VOLUME 9.8 fl (7.2-11.7); MONO # 0.5 K/uL (0.0-0.8); MONO % 2.2 % (0.0-10.0); NEUT # 20.8 K/uL (1.8-7.0); NEUT % 94.1 % (50.0-75.0); NRBC % 0.1 % (0.0-0.0); PLATELET COUNT 230 K/uL (130-400); RBC 3.81 Mil/uL (4.40-5.90); RED CELL DISTRIBUTION WIDTH 15.8 % (11.5-14.5); WHITE BLOOD COUNT 22.1 K/uL (4.8-10.8)
[2018-05-28 05:26] LABS: ABG ALLEN TEST YES; ARTERIAL BLOOD GAS HCO3 29.5 mmol/L (21-28); ARTERIAL BLOOD GAS HEMOGLOBIN 9.8 g/dL (11.7-17.4); ARTERIAL BLOOD GAS O2 CAPACITY 13.7 mL/dL (16-24); ARTERIAL BLOOD GAS O2 CONTENT 13.7 ML/dL (15-23); ARTERIAL BLOOD GAS O2 SAT 100.3 % (95-98); ARTERIAL BLOOD GAS PCO2 48 mm/Hg (35-45); ARTERIAL BLOOD GAS PH 7.42 (7.35-7.45); ARTERIAL BLOOD GAS PO2 129 mm/Hg (80-100); ARTERIAL BLOOD GAS TCO2 32.6 mmol/L (22-28)
[2018-05-28 05:42] LABS: ALB/GLOB RATIO 0.7 (1.0-2.1); ALBUMIN 2.8 g/dL (3.5-5.0); ALT/SGPT 54 U/L (21-72); AST/SGOT 63 U/L (17-59); BLOOD UREA NITROGEN 39 mg/dl (9-20); CALCIUM 8.5 mg/dL (8.4-10.2); GFR NON-AFRICAN AMERICAN > 60
[2018-05-28] MEDS: Ipratropium 0.02% Inhal Soln (0.5 mg/2.5 ml) UD IH SCH ×3 (07:50→23:23)
[2018-05-28] MEDS: Acetylcysteine 10% 4 ML IH SCH ×3 (07:50→23:24)
--- NOTE | 2018-05-28 08:46 | CP.CCUPN ---
CCU Subjective - Physician Review Subjective (Free Text): Episode of tachyarrythmia noted overnight, responded to IV Metoprolol. Not sedated, opens eyes spontaneously, but not interactive, not following any specific commands; on MV, breathing 23 on AC 14, TV 500ml, SPo2 98% on 60% fiO2. + 101.5F RECURRENT FEVER spike overnight, but now with Ts in the 99F range. SBPs 120s, HR 110s sinus with PACs. Other vitals and I/O's reviewed. Fluid balance positive 1.4L out last 24H. On OGT feed with Glucerna 45 ml/hr. ROS: No other pertinent negs or positives on 10+ system review obtainable due to sedation. PMSFH: All other Nursing and physician documentation reviewed to date; no new pertinent info noted relevant to current medical problems. EXAM- HEENT: no icterus, no gaze preference, pupils reactive, no nystagmus NECK: no JVD visible, supple, carotids equal upstroke bilat/no bruit CHEST: decreased BS at the bases, no wheezes audible HEART: regular, distant, S1S2, no rubs ABD: soft, no distension, no focal tenderness, no tympany, no guarding, no organomegaly, BS hypoactive. EXT: + LE edema, no mottling; no calf tenderness or palpable cords, distal pulses intact and symmetrical, no cyanosis, no mottling. NEURO: + tone, withdraws to pain x 4. SKIN: no rashes, warm and dry LABS: WBC= 22.1 HGB= 10.0 PLTs= 230K 7.42/48/129 Na= 149 K= 5.1 CL= 107 HCO3= 36 BUN/Cr= 39/0.8 BS= 123 CXR; (my interp) ETT position OK above brianne, marked R sided infiltrates, romain RUL today; worse than Left. IMPRESSION / MAJOR PROBLEMS NOW: 1. Acute hypoxemic resp failure 2 Bilateral pneumonia 2. Severe Sepsis with Shock 2 #1, r/o Bacteremia, + E.coli UTI 3. s/p Paroxysmal A Fib with RVR 4. s/p Hyponatremia with Azotemia/ Dehydration 5. h/o Dementia PLAN: 1. Day #4 MV support, try decreasing FIo2 to 50% today, remains on empiric abx / afx coverage. CXR pattern overall unchanged. Pulm considering FOB for non-resolving PNA. Repeat sputum Cx show yeast. Blood Cxs negative so far. 2. Ongoing hydration, improved BUN / Cr today, could stop IVFs and give free water, follow serum Na levels, too. 3. Metoprolol added to medication rgimen. 4. Discontinue IV Enalaprilat, essentially normotensive.
[2018-05-28] MEDS: Clindamycin 600 MG in Sodium Chloride 0.9% 100 ML IVPB SCH ×2 (08:48→20:30)
[2018-05-28] MEDS: Vitamins A & D Oint UD Foilpak TOP SCH ×2 (08:53→17:01)
--- NOTE | 2018-05-28 09:10 | CP.PCM.PN ---
Subjective - Date & Time of Evaluation Date of Evaluation: 05/28/18 Time of Evaluation: 09:09 - Subjective Subjective: Infectious disease note Patient was seen and examined in the ICU today. Patient remains intubated and does not follow any commands. Objective - Vital Signs/Intake and Output Vital Signs (last 24 hours): Temp Pulse Resp BP Pulse Ox 100.8 F H 112 H 19 127/64 100 05/28/18 08:00 05/28/18 08:00 05/28/18 08:00 05/28/18 08:00 05/28/18 08:00 Intake and Output: 05/28/18 05/28/18 06:59 18:59 Intake Total 1140 100 Output Total 600 Balance 540 100 - Medications Medications: Current Medications Acetaminophen (Tylenol 650mg/20.3ml Solution Ud) 650 mg PO Q4 PRN PRN Reason: Temperature Last Admin: 05/27/18 21:46 Dose: 650 mg Acetylcysteine (Mucomyst 10% 4ml) 2 ml IH RQ8 KEN Last Admin: 05/28/18 07:50 Dose: 2 ml Alendronate Sodium (Fosamax) 70 mg PO FR KEN Last Admin: 05/21/18 10:29 Dose: 70 mg Artificial Tears (Artificial Tears) 2 drop OU Q6 KEN Last Admin: 05/28/18 04:00 Dose: 2 drop Calcium Carbonate (Oscal) 500 mg PO BID KEN Last Admin: 05/21/18 10:26 Dose: 500 mg Cholecalciferol (Vitamin D) 1,000 intlu PO BID [facility] Last Admin: 05/21/18 10:27 Dose: 1,000 intlu Dimethicone (Proshield Plus Skin Protectant) 1 applic TOP Q8 KEN Last Admin: 05/28/18 08:51 Dose: 1 applic Donepezil HCl (Aricept) 5 mg PO HS [facility] Last Admin: 05/20/18 21:28 Dose: 5 mg Clindamycin Phosphate 600 mg/ (Sodium Chloride) 104 mls @ 104 mls/hr IVPB Q12 [facility]; Protocol Last Admin: 05/28/18 08:48 Dose: 104 mls/hr Fluconazole (Diflucan Iv 100 Mg/50 Ml Ns) 50 mls @ 50 mls/hr IVPB DAILY@1400 KEN; Protocol Last Admin: 05/27/18 13:30 Dose: 50 mls/hr Vancomycin HCl 750 mg/ Sodium (Chloride) 250 mls @ 166.667 mls/hr IVPB Q12 [facility]; Protocol Last Admin: 05/28/18 08:51 Dose: 166.667 mls/hr Meropenem 1 gm/ Sodium (Chloride) 100 mls @ 100 mls/hr IVPB Q8 KEN; Protocol Last Admin: 05/28/18 08:50 Dose: 100 mls/hr Ipratropium [place] (Atrovent) 0.5 mg IH RQ8 KEN Last Admin: 05/28/18 07:50 Dose: 0.5 mg Levalbuterol HCl (Xopenex) 0.63 mg INH RQ8 PRN PRN Reason: Shortness of Breath Last Admin: 05/27/18 23:56 Dose: 0.63 mg Memantine (Namenda) 5 mg PO Q12 [facility] Last Admin: 05/21/18 10:25 Dose: 5 mg Metoprolol Tartrate (Lopressor) 50 mg PO Q12 [facility] Multivitamins/Minerals (Therapeutic-M Tab) 1 tab PO DAILY [facility] Last Admin: 05/21/18 10:27 Dose: 1 tab Nystatin (Nystop Topical Powder) 1 applic TOP Q8H [facility] Last Admin: 05/28/18 03:30 Dose: 1 applic Pantoprazole Sodium (Protonix Inj) 40 mg IVP DAILY [facility] Last Admin: 05/28/18 08:54 Dose: 40 mg Senna/Docusate Sodium (Senokot S 50 Mg-8.6 Mg) 1 tab PO HS [facility] Last Admin: 05/20/18 21:29 Dose: 1 tab Tamsulosin HCl (Flomax) 0.4 mg PO QPM [facility] Last Admin: 05/20/18 17:19 Dose: 0.4 mg Vitamin A (Vitamin A & D Oint Ud Foilpak) 1 ea TOP BID [facility] Last Admin: 05/28/18 08:53 Dose: 1 ea - Labs Labs: - Additional Findings Additional findings: - Constitutional Appears: Chronically Ill - ENT Exam Additional comments: ET tube in place - Respiratory Exam Additional comments: decreased breath sounds on the entire right side - Cardiovascular Exam Cardiovascular Exam: Tachycardia, +S1, +S2 - GI/Abdominal Exam GI & Abdominal Exam: Soft, Normal Bowel Sounds Additional comments: ND, NT - Extremities Exam Extremities Exam: Normal Inspection - Neurological Exam Additional comments: Intubated and lethargic Laboratory Results - last 72 hr 05/25/18 05/25/18 05/26/18 16:45 21:04 04:30 WBC 22.4 H RBC 3.24 L Hgb 8.7 L Hct 27.5 L MCV 85.0 MCH 26.8 L MCHC 31.5 L RDW 15.5 H Plt Count 204 MPV Neut % (Auto) Lymph % (Auto) [place] % (Auto) Eos % (Auto) Baso % (Auto) Neut # (Auto) Lymph # (Auto) [place] # (Auto) Eos # (Auto) Baso # (Auto) Neutrophils % (Manual) Band Neutrophils % Lymphocytes % (Manual) Monocytes % (Manual) Eosinophils % (Manual) Myelocytes % Platelet Estimate Hypochromasia (manual) Anisocytosis (manual) Tear Drop Cells Ovalocytes Margie Cells Schistocytes pCO2 pO2 HCO3 ABG pH ABG Total CO2 ABG O2 Saturation ABG O2 Content ABG Base Excess ABG Hemoglobin ABG Carboxyhemoglobin POC ABG HHb (Measured) ABG Methemoglobin ABG O2 Capacity [place] Test ABG Potassium A-a O2 Difference Hgb O2 Saturation Glucose Lactate Vent Mode Mechanical Rate FiO2 Tidal Volume PEEP Sodium Potassium Chloride Carbon Dioxide Anion Gap BUN Creatinine Est GFR ( Amer) Est GFR (Non-Af Amer) POC Glucose (mg/dL) 171 H 229 H Random Glucose Calcium Phosphorus Magnesium Total Bilirubin AST ALT Alkaline Phosphatase Total Protein Albumin Globulin Albumin/Globulin Ratio Arterial Blood Potassium 05/26/18 05/26/18 05/26/18 04:30 04:39 05:45 WBC RBC Hgb Hct MCV MCH MCHC RDW Plt Count MPV Neut % (Auto) Lymph % (Auto) [place] % (Auto) Eos % (Auto) Baso % (Auto) Neut # (Auto) Lymph # (Auto) [place] # (Auto) Eos # (Auto) Baso # (Auto) Neutrophils % (Manual) Band Neutrophils % Lymphocytes % (Manual) Monocytes % (Manual) Eosinophils % (Manual) Myelocytes % Platelet Estimate Hypochromasia (manual) Anisocytosis (manual) Tear Drop Cells Ovalocytes Cuate Cells Schistocytes pCO2 48 H pO2 102 H HCO3 26.5 ABG pH 7.37 ABG Total CO2 29.2 H ABG O2 Saturation 100.9 H ABG O2 Content 12.5 L ABG Base Excess 2.0 ABG Hemoglobin 8.9 L ABG Carboxyhemoglobin 1.5 POC ABG HHb (Measured) -0.9 L ABG Methemoglobin 0.8 ABG O2 Capacity 12.4 L Forrest Test Yes ABG Potassium A-a O2 Difference 266.0 Hgb O2 Saturation 98.5 H Glucose Lactate Vent Mode A/c Mechanical Rate 14 FiO2 60.0 Tidal Volume 500 PEEP 5 Sodium 148 Potassium 4.1 Chloride 111 H Carbon Dioxide 28 Anion Gap 13 BUN 54 H Creatinine 1.1 Est GFR ( Amer) > 60 Est GFR (Non-Af Amer) > 60 POC Glucose (mg/dL) 247 H Random Glucose 278 H Calcium 7.7 L Phosphorus Magnesium Total Bilirubin 0.8 AST 27 ALT 38 Alkaline Phosphatase 83 Total Protein 5.8 L Albumin 2.5 L Globulin 3.3 Albumin/Globulin Ratio 0.8 L Arterial Blood Potassium 05/26/18 05/26/18 05/27/18 17:02 20:55 04:30 WBC 24.2 H RBC 3.28 L Hgb 8.8 L Hct 27.8 L MCV 84.6 MCH 26.8 L MCHC 31.6 L RDW 16.0 H Plt Count 212 MPV 9.5 Neut % (Auto) 96.2 H Lymph % (Auto) 1.5 L [place] % (Auto) 2.1 Eos % (Auto) 0.1 Baso % (Auto) 0.1 Neut # (Auto) 23.2 H Lymph # (Auto) 0.4 L [place] # (Auto) 0.5 Eos # (Auto) 0.0 Baso # (Auto) 0.0 Neutrophils % (Manual) 94 H Band Neutrophils % 2 Lymphocytes % (Manual) 1 L Monocytes % (Manual) 0 Eosinophils % (Manual) 2 Myelocytes % 1 H Platelet Estimate Normal Hypochromasia (manual) Moderate Anisocytosis (manual) Slight Tear Drop Cells Slight Ovalocytes Slight Margie Cells Slight Schistocytes Slight pCO2 pO2 HCO3 ABG pH ABG Total CO2 ABG O2 Saturation ABG O2 Content ABG Base Excess ABG Hemoglobin ABG Carboxyhemoglobin POC ABG HHb (Measured) ABG Methemoglobin ABG O2 Capacity [place] Test ABG Potassium A-a O2 Difference Hgb O2 Saturation Glucose Lactate Vent Mode Mechanical Rate FiO2 Tidal Volume PEEP Sodium Potassium Chloride Carbon Dioxide Anion Gap BUN Creatinine Est GFR ( Amer) Est GFR (Non-Af Amer) POC Glucose (mg/dL) 177 H 157 H Random Glucose Calcium Phosphorus Magnesium Total Bilirubin AST ALT Alkaline Phosphatase Total Protein Albumin Globulin Albumin/Globulin Ratio Arterial Blood Potassium 05/27/18 05/27/18 05/27/18 04:30 05:19 05:41 WBC RBC Hgb Hct MCV MCH MCHC RDW Plt Count MPV Neut % (Auto) Lymph % (Auto) [place] % (Auto) Eos % (Auto) Baso % (Auto) Neut # (Auto) Lymph # (Auto) [place] # (Auto) Eos # (Auto) Baso # (Auto) Neutrophils % (Manual) Band Neutrophils % Lymphocytes % (Manual) Monocytes % (Manual) Eosinophils % (Manual) Myelocytes % Platelet Estimate Hypochromasia (manual) Anisocytosis (manual) Tear Drop Cells Ovalocytes Margie Cells Schistocytes pCO2 49 H pO2 95 HCO3 27.3 ABG pH 7.38 ABG Total CO2 30.5 H ABG O2 Saturation 99.0 H ABG O2 Content ABG Base Excess 3.0 ABG Hemoglobin ABG Carboxyhemoglobin POC ABG HHb (Measured) ABG Methemoglobin ABG O2 Capacity Forrest Test Yes ABG Potassium 4.6 A-a O2 Difference 272.0 Hgb O2 Saturation Glucose 163 H Lactate 1.6 Vent Mode A/c Mechanical Rate 500 FiO2 60.0 Tidal Volume 14 PEEP 5 Sodium 149 H 147.0 Potassium 4.5 Chloride 112 H 120.0 H Carbon Dioxide 28 Anion Gap 14 BUN 47 H Creatinine 0.9 Est GFR ( Amer) > 60 Est GFR (Non-Af Amer) > 60 POC Glucose (mg/dL) 154 H Random Glucose 155 H Calcium 8.1 L Phosphorus Magnesium Total Bilirubin AST ALT Alkaline Phosphatase Total Protein Albumin Globulin Albumin/Globulin Ratio Arterial Blood Potassium 4.6 05/27/18 05/27/18 05/27/18 11:06 17:05 22:07 WBC RBC Hgb Hct MCV MCH MCHC RDW Plt Count MPV Neut % (Auto) Lymph % (Auto) [place] % (Auto) Eos % (Auto) Baso % (Auto) Neut # (Auto) Lymph # (Auto) [place] # (Auto) Eos # (Auto) Baso # (Auto) Neutrophils % (Manual) Band Neutrophils % Lymphocytes % (Manual) Monocytes % (Manual) Eosinophils % (Manual) Myelocytes % Platelet Estimate Hypochromasia (manual) Anisocytosis (manual) Tear Drop Cells Ovalocytes Margie Cells Schistocytes pCO2 pO2 HCO3 ABG pH ABG Total CO2 ABG O2 Saturation ABG O2 Content ABG Base Excess ABG Hemoglobin ABG Carboxyhemoglobin POC ABG HHb (Measured) ABG Methemoglobin ABG O2 Capacity [place] Test ABG Potassium A-a O2 Difference Hgb O2 Saturation Glucose Lactate Vent Mode Mechanical Rate FiO2 Tidal Volume PEEP Sodium Potassium Chloride Carbon Dioxide Anion Gap BUN Creatinine Est GFR ( Amer) Est GFR (Non-Af Amer) POC Glucose (mg/dL) 151 H 137 H 136 H Random Glucose Calcium Phosphorus Magnesium Total Bilirubin AST ALT Alkaline Phosphatase Total Protein Albumin Globulin Albumin/Globulin Ratio Arterial Blood Potassium 05/28/18 05/28/18 05/28/18 04:50 04:50 04:55 WBC 22.1 H RBC 3.81 L Hgb 10.0 L Hct 32.3 L MCV 84.6 MCH 26.3 L MCHC 31.1 L RDW 15.8 H Plt Count 230 MPV 9.8 Neut % (Auto) 94.1 H Lymph % (Auto) 2.2 L [place] % (Auto) 2.2 Eos % (Auto) 0.4 Baso % (Auto) 1.1 Neut # (Auto) 20.8 H Lymph # (Auto) 0.5 L [place] # (Auto) 0.5 Eos # (Auto) 0.1 Baso # (Auto) 0.2 Neutrophils % (Manual) 91 H Band Neutrophils % 3 H Lymphocytes % (Manual) 2 L Monocytes % (Manual) 3 Eosinophils % (Manual) 1 Myelocytes % Platelet Estimate Normal Hypochromasia (manual) Slight Anisocytosis (manual) Slight Tear Drop Cells Slight Ovalocytes Slight Margie Cells Schistocytes Slight pCO2 48 H pO2 129 H HCO3 29.5 H ABG pH 7.42 ABG Total CO2 32.6 H ABG O2 Saturation 100.3 H ABG O2 Content 13.7 L ABG Base Excess 5.8 H ABG Hemoglobin 9.8 L ABG Carboxyhemoglobin 1.4 POC ABG HHb (Measured) -0.3 L ABG Methemoglobin 1.3 ABG O2 Capacity 13.7 L Forrest Test Yes ABG Potassium A-a O2 Difference 239.0 Hgb O2 Saturation 97.6 Glucose Lactate Vent Mode A/c Mechanical Rate 14 FiO2 60.0 Tidal Volume 500 PEEP 5 Sodium 149 H Potassium 5.1 H Chloride 107 Carbon Dioxide 36 H Anion Gap 11 BUN 39 H Creatinine 0.8 Est GFR ( Amer) > 60 Est GFR (Non-Af Amer) > 60 POC Glucose (mg/dL) Random Glucose 123 H Calcium 8.5 Phosphorus 3.7 Magnesium 2.3 Total Bilirubin 1.0 AST 63 H D ALT 54 Alkaline Phosphatase 151 H D Total Protein 6.7 Albumin 2.8 L Globulin 4.0 H Albumin/Globulin Ratio 0.7 L Arterial Blood Potassium 05/28/18 05/28/18 05:14 11:16 WBC RBC Hgb Hct MCV MCH MCHC RDW Plt Count MPV Neut % (Auto) Lymph % (Auto) [place] % (Auto) Eos % (Auto) Baso % (Auto) Neut # (Auto) Lymph # (Auto) [place] # (Auto) Eos # (Auto) Baso # (Auto) Neutrophils % (Manual) Band Neutrophils % Lymphocytes % (Manual) Monocytes % (Manual) Eosinophils % (Manual) Myelocytes % Platelet Estimate Hypochromasia (manual) Anisocytosis (manual) Tear Drop Cells Ovalocytes Cuate Cells Schistocytes pCO2 pO2 HCO3 ABG pH ABG Total CO2 ABG O2 Saturation ABG O2 Content ABG Base Excess ABG Hemoglobin ABG Carboxyhemoglobin POC ABG HHb (Measured) ABG Methemoglobin ABG O2 Capacity [place] Test ABG Potassium A-a O2 Difference Hgb O2 Saturation Glucose Lactate Vent Mode Mechanical Rate FiO2 Tidal Volume PEEP Sodium Potassium Chloride Carbon Dioxide Anion Gap BUN Creatinine Est GFR ( Amer) Est GFR (Non-Af Amer) POC Glucose (mg/dL) 110 74 Random Glucose Calcium Phosphorus Magnesium Total Bilirubin AST ALT Alkaline Phosphatase Total Protein Albumin Globulin Albumin/Globulin Ratio Arterial Blood Potassium Microbiology 05/26/18 14:13 Blood-Venous Blood Culture - Preliminary NO GROWTH AFTER 24 HOURS 05/24/18 14:15 Blood-Venous Blood Culture - Preliminary NO GROWTH AFTER 3 DAYS 05/24/18 14:00 Blood-Venous Blood Culture - Preliminary NO GROWTH AFTER 3 DAYS 05/24/18 15:00 Sputum Gram Stain - Final 05/24/18 15:00 Sputum Sputum Culture - Final Yeast Species 05/24/18 09:35 Urine,Catheterized Urine Culture - Final No Growth (<1,000 CFU/ML) 05/20/18 15:31 Blood-Venous Blood Culture - Final NO GROWTH AFTER 5 DAYS 05/20/18 15:31 Blood-Venous Gram Stain - Final TEST NOT PERFORMED 05/20/18 15:42 Blood-Venous Blood Culture - Final NO GROWTH AFTER 5 DAYS 05/20/18 15:42 Blood-Venous Gram Stain - Final TEST NOT PERFORMED 05/24/18 09:35 Naris MRSA Culture (Admit) - Final MRSA NOT DETECTED 05/21/18 16:57 Sputum Induced Gram Stain - Final 05/21/18 16:57 Sputum Induced Sputum Culture - Final Yeast Species 05/12/18 07:50 Blood Blood Culture - Final NO GROWTH AFTER 5 DAYS 05/12/18 07:50 Blood Gram Stain - Final TEST NOT PERFORMED 05/12/18 Unknown Blood Blood Culture - Final NO GROWTH AFTER 5 DAYS 05/12/18 Unknown Blood Gram Stain - Final TEST NOT PERFORMED 05/12/18 08:40 Urine,Catheterized Urine Culture - Final Escherichia Coli Assessment and Plan (1) UTI (urinary tract infection) Status: Deleted (2) Sepsis syndrome Status: Acute (3) Fever Status: Resolved (4) Hypoxemia Status: Chronic - Assessment and Plan (Free Text) Assessment: A/P- 82 year old [place] resident male with dementia, admitted with fever initially and had UTI and ? asp pneumonia and was treated with IV antibiotiocs and was fever free and normal wbc and doing ok but few days ago had aspiration pneumonia and hypoxemic and rapid a.fib and is s/p intubation and in ICU. leukocytosisminimally lower today. low grade fevers again today. cxr- right side infiltrates and opacification admission UA- Pos LE, neg Nitrates admission urine cx- E.Coli pansensitive- treated for this already blood cx- neg x 5 sputum cx- yeast PLan- advise to continue with IV meropenem and clindamycin for added anaerobic coverage. also advise to continue with IV fluconazole for yeast in sputum. continue with vanco for extra coverage for pneumonitis and rising wbc.day #2 keep trough <15. Patient might need bronchoscopy for evaluation and treatment of the right sided dense Infiltrates. all labs and imaging and chart notes reviewed. critical care time spent 40 minutes. d/w
--- NOTE | 2018-05-28 10:07 | RAD ---
Date of service: 05/28/2018 HISTORY: reevaluate COMPARISON: 05/27/2018 FINDINGS: LUNGS: Persistent extensive right-sided pulmonary opacity, upper greater than lower. No abnormal left-sided opacity. Likely pneumonia. PLEURA: No significant pleural effusion identified, no pneumothorax apparent. CARDIOVASCULAR: No aortic atherosclerotic calcification present. Normal cardiac size. ET tube and NG tube unchanged. OSSEOUS STRUCTURES: No significant abnormalities. VISUALIZED UPPER ABDOMEN: Normal. OTHER FINDINGS: None. IMPRESSION: Persistent extensive abnormal right-sided pulmonary opacity. Likely pneumonia.
--- NOTE | 2018-05-28 11:18 | CARD ---
APPROVED REPORT Date of service: 05/28/2018 EKG Measurement Heart [id number] <Conclusion> Unusual P axis, probable ectopic atrial rhythm with frequent premature atrial complexes Low voltage QRS Abnormal ECG
[2018-05-28 12:39] LABS: BANDS 3 % (0-2); EOSINOPHIL 1 % (0-7); LYMPHOCYTE 2 % (20-50); MONOCYTE 3 % (0-10); NEUTROPHIL 91 % (42-75); TOTAL CELLS COUNTED 100
[2018-05-28 12:40] LABS: ANISOCYTOSIS SLIGHT; HYPOCHROMIC SLIGHT; OVALOCYTES SLIGHT; PLATELET ESTIMATE NORMAL (NORMAL); SCHISTOCYTES SLIGHT; TEARDROP CELLS SLIGHT
[2018-05-28] MEDS ORDERED: Chlorhexidine Gluconate 1 APPL/PKT TP ONE (15:45)
--- NOTE | 2018-05-28 16:09 | CP.PCM.PN ---
Subjective - Date & Time of Evaluation Date of Evaluation: 05/28/18 Time of Evaluation: 14:30 - Subjective Subjective: F/U Respiratory Failure. Pt intubated Objective - Vital Signs/Intake and Output Vital Signs (last 24 hours): Temp Pulse Resp BP Pulse Ox 98.2 F 72 17 163/108 H 100 05/28/18 12:00 05/28/18 12:08 05/28/18 12:00 05/28/18 12:08 05/28/18 12:00 Intake and Output: 05/28/18 05/28/18 06:59 18:59 Intake Total 1140 200 Output Total 600 330 Balance 540 -130 - Medications Medications: Current Medications Acetaminophen (Tylenol 650mg/20.3ml Solution Ud) 650 mg PO Q4 PRN PRN Reason: Temperature Last Admin: 05/27/18 21:46 Dose: 650 mg Acetylcysteine (Mucomyst 10% 4ml) 2 ml IH RQ8 KEN Last Admin: 05/28/18 15:40 Dose: Not Given Alendronate Sodium (Fosamax) 70 mg PO FR KEN Last Admin: 05/21/18 10:29 Dose: 70 mg Artificial Tears (Artificial Tears) 2 drop OU Q6 KEN Last Admin: 05/28/18 11:26 Dose: 2 drop Calcium Carbonate (Oscal) 500 mg PO BID KEN Last Admin: 05/21/18 10:26 Dose: 500 mg Cholecalciferol (Vitamin D) 1,000 intlu PO BID KEN Last Admin: 05/21/18 10:27 Dose: 1,000 intlu Dimethicone (Proshield Plus Skin Protectant) 1 applic TOP Q8 KEN Last Admin: 05/28/18 08:51 Dose: 1 applic Donepezil HCl (Aricept) 5 mg PO HS KEN Last Admin: 05/20/18 21:28 Dose: 5 mg Clindamycin Phosphate 600 mg/ (Sodium Chloride) 104 mls @ 104 mls/hr IVPB Q12 [facility]EN; Protocol Last Admin: 05/28/18 08:48 Dose: 104 mls/hr Vancomycin HCl 750 mg/ Sodium (Chloride) 250 mls @ 166.667 mls/hr IVPB Q12 [facility]EN; Protocol Last Admin: 05/28/18 08:51 Dose: 166.667 mls/hr Meropenem 1 gm/ Sodium (Chloride) 100 mls @ 100 mls/hr IVPB Q8 [facility]EN; Protocol Last Admin: 05/28/18 08:50 Dose: 100 mls/hr Fluconazole (Diflucan Iv 100 Mg/50 Ml Ns) 50 mls @ 50 mls/hr IVPB DAILY@1400 KEN; Protocol Ipratropium [place] (Atrovent) 0.5 mg IH RQ8 KEN Last Admin: 05/28/18 15:40 Dose: Not Given Levalbuterol HCl (Xopenex) 0.63 mg INH RQ8 PRN PRN Reason: Shortness of Breath Last Admin: 05/27/18 23:56 Dose: 0.63 mg Memantine (Namenda) 5 mg PO Q12 KEN Last Admin: 05/21/18 10:25 Dose: 5 mg Metoprolol Tartrate (Lopressor) 50 mg PO Q12 KEN Last Admin: 05/28/18 12:08 Dose: 50 mg Multivitamins/Minerals (Therapeutic-M Tab) 1 tab PO DAILY [facility] Last Admin: 05/21/18 10:27 Dose: 1 tab Nystatin (Nystop Topical Powder) 1 applic TOP Q8H [facility] Last Admin: 05/28/18 11:26 Dose: 1 applic Pantoprazole Sodium (Protonix Inj) 40 mg IVP DAILY [facility] Last Admin: 05/28/18 08:54 Dose: 40 mg Senna/Docusate Sodium (Senokot S 50 Mg-8.6 Mg) 1 tab PO HS KEN Last Admin: 05/20/18 21:29 Dose: 1 tab Tamsulosin HCl (Flomax) 0.4 mg PO QPM KEN Last Admin: 05/20/18 17:19 Dose: 0.4 mg Vitamin A (Vitamin A & D Oint Ud Foilpak) 1 ea TOP BID KEN Last Admin: 05/28/18 08:53 Dose: 1 ea - Labs Labs: 05/28/18 04:50 05/28/18 04:50 PT 15.7 Seconds (9.8-13.1) H 05/12/18 07:50 INR 1.4 05/12/18 07:50 APTT 34.4 Seconds (25.6-37.1) 05/12/18 07:50 - Constitutional Appears: Chronically Ill - Head Exam Head Exam: NORMAL INSPECTION - Eye Exam Additional comments: L eye deviated laterally - ENT Exam Additional comments: Intubated, OGT - Neck Exam Neck Exam: Normal Inspection - Respiratory Exam Respiratory Exam: Decreased Breath Sounds (at bases), Rhonchi (b/l) - Cardiovascular Exam Cardiovascular Exam: REGULAR RHYTHM - GI/Abdominal Exam GI & Abdominal Exam: Soft, Normal Bowel Sounds - Exam Additional comments: Cerrato cath - Extremities Exam Extremities Exam: Normal Inspection - Back Exam Additional comments: Sacral ulcer - Neurological Exam Additional comments: Intubated, sedated, not following commands. - Skin Skin Exam: Warm Assessment and Plan (1) Respiratory failure Status: Acute (2) Aspiration pneumonia Status: Acute (3) E. coli UTI Status: Acute (4) Fever Status: Resolved (5) Sepsis syndrome Status: Acute (6) Hypoxemia Status: Chronic (7) Esophageal dilatation Status: Chronic (8) Dementia Status: Chronic (9) HTN (hypertension) Status: Chronic (10) DMII (diabetes mellitus, type 2) Status: Chronic - Assessment and Plan (Free Text) Plan: For Bronchoscopy today. Critical care time: 32 min.
--- NOTE | 2018-05-28 16:10 | PCM.OP ---
Operative Report - Operative Report Date of Surgery/Procedure: 05/28/18 Time of Surgery/Procedure: 16:00 Surgeon: Alejandro Hernández MD Pre-Operative Diagnosis: Respiratory Failure, Pneumonia Post-Operative Diagnosis: Same as Pre-Op Indication for Surgery: Respiratory Failure, PNA Operative Findings: Bronchoscopy was done at bedside in the ICU, patient was intubated. Bronchoscope was introduced through the ET tube, distal trachea mucosa with increased hyperemia, Anneliese was sharp and in the midline Bronchoscope was advanced to the right main stem bronchi there were thick secretions that were aspirated, then advanced through the left upper lobe, there were yellowish secretions that were aspirated, the mucosa in all segment with increased hyperemia, vessel engorgement no endobronchial lesion or extrinsic compression, then the bronchoscope was advanced through the bronchus intermedius into the right middle lobe there were scanty amount of secretions that were as pirated, the mucosa in both segments with increased hyperemia vessel engorgement, no endobronchial lesion or extrinsic compression, then the bronchoscope was withdrawn and advanced to the right lower lobe all the basal segments were occluded with thick yellowish secretions that were aspirated, the mucosa in all segments with increased hyperemia vessel engorgement, no endobronchial lesion or extrinsic compression, then the bronchoscope was withdrawn. The bronchoscope was advanced to the left mainstem bronchi and then into the left upper lobe, then withdrawn and advanced to the left lower lobe, the mucosae in all the segments of both lobes with increased hyperemia, vessel engorgement, no endobronchial lesion or extrinsic compression, then the bronchoscope was withdrawn Estimated Blood Loss: none Complications: none Discharge & Condition: Patient was in stable condition, Bronchial washings were forwarded to Lab and Pathology
[2018-05-28] MEDS: Fluconazole IV 100mg/50 ml NS 50 ML IVPB SCH (16:59)
[2018-05-28] MEDS: Levalbuterol 0.63 MG/3 ML Inhal Soln UD INH PRN (23:23)
[2018-05-29] MEDS: Meropenem 1 GM in Sodium Chloride 0.9% 100 ML IVPB SCH ×3 (00:45→17:08)
[2018-05-29] MEDS ORDERED: Metoprolol 1 mg/ml Inj IVP STA (01:30)
[2018-05-29] MEDS: Proshield Plus GEL TOP SCH ×3 (02:10→17:12)
[2018-05-29 04:48] LABS: ABG ALLEN TEST YES; ARTERIAL BLOOD GAS HCO3 30.8 mmol/L (21-28); ARTERIAL BLOOD GAS HEMOGLOBIN 10.7 g/dL (11.7-17.4); ARTERIAL BLOOD GAS O2 CAPACITY 14.7 mL/dL (16-24); ARTERIAL BLOOD GAS O2 CONTENT 14.5 ML/dL (15-23); ARTERIAL BLOOD GAS O2 SAT 98.7 % (95-98); ARTERIAL BLOOD GAS PCO2 38 mm/Hg (35-45); ARTERIAL BLOOD GAS PH 7.52 (7.35-7.45); ARTERIAL BLOOD GAS PO2 79 mm/Hg (80-100); ARTERIAL BLOOD GAS TCO2 32.2 mmol/L (22-28)
[2018-05-29] MEDS: Artificial Tears Opht Soln OU SCH ×4 (05:00→22:02)
[2018-05-29 05:10] LABS: BASO # 0.2 K/uL (0.0-0.2); BASO % 0.8 % (0.0-2.0); EOS # 0.1 K/uL (0.0-0.7); EOS % 0.5 % (0.0-4.0); HEMOGLOBIN 10.5 g/dL (12.0-18.0); LYMPH # 0.5 K/uL (1.0-4.3); LYMPH % 2.2 % (20.0-40.0); MEAN CELL VOLUME 84.4 fl (80.0-94.0); MEAN CORPUSCULAR HEMOGLOBIN 26.1 pg (27.0-31.0); MEAN CORPUSCULAR HGB CONC 30.9 g/dL (33.0-37.0); MEAN PLATELET VOLUME 10.2 fl (7.2-11.7); MONO # 0.8 K/uL (0.0-0.8); MONO % 3.9 % (0.0-10.0); NEUT # 19.6 K/uL (1.8-7.0); NEUT % 92.6 % (50.0-75.0); PLATELET COUNT 265 K/uL (130-400); RBC 4.01 Mil/uL (4.40-5.90); RED CELL DISTRIBUTION WIDTH 16.2 % (11.5-14.5); WHITE BLOOD COUNT 21.2 K/uL (4.8-10.8)
[2018-05-29 06:01] LABS: ALB/GLOB RATIO 0.7 (1.0-2.1); ALBUMIN 2.6 g/dL (3.5-5.0); ALT/SGPT 40 U/L (21-72); AST/SGOT 33 U/L (17-59); BLOOD UREA NITROGEN 36 mg/dl (9-20); GFR NON-AFRICAN AMERICAN > 60
[2018-05-29] MEDS: Acetylcysteine 10% 4 ML IH SCH ×3 (08:28→23:38)
[2018-05-29] MEDS: Ipratropium 0.02% Inhal Soln (0.5 mg/2.5 ml) UD IH SCH ×3 (08:28→23:38)
--- NOTE | 2018-05-29 09:23 | CP.CCUPN ---
CCU Subjective - Physician Review Subjective (Free Text): No new events, opens eyes spontaneously, but not interactive, not following any specific commands; on MV, breathing 22 on AC 14, TV 500ml, SPo2 98% on 50% fiO2. S/p bedside FOB BAL yesterday, noted to have very thick R sided secretions. NO RECURRENT FEVER spike overnight, but now with Ts in the 99F range. SBPs 120s, HR 100s sinus with PACs. Other vitals and I/O's reviewed. Fluid balance positive 1.1L out last 24H. On OGT feed with Glucerna 45 ml/hr. ROS: No other pertinent negs or positives on 10+ system review obtainable due to sedation. PMSFH: All other Nursing and physician documentation reviewed to date; no new pertinent info noted relevant to current medical problems. EXAM- HEENT: no icterus, no gaze preference, pupils reactive, no nystagmus NECK: no JVD visible, supple, carotids equal upstroke bilat/no bruit CHEST: decreased BS at the bases, no wheezes audible HEART: regular, distant, S1S2, no rubs ABD: soft, no distension, no focal tenderness, no tympany, no guarding, no organomegaly, BS hypoactive. EXT: + LE edema, no mottling; no calf tenderness or palpable cords, distal pulses intact and symmetrical, no cyanosis, no mottling. NEURO: + tone, withdraws to pain x 4. SKIN: no rashes, warm and dry LABS: WBC= 21.2 HGB= 10.5 PLTs= 265K 7.52/38/79 Na= 144 K= 4.4 CL= 106 HCO3= 28 BUN/Cr= 36/0.6 BS= 146 CXR; (my interp) ETT position OK above brianne, marked R sided infiltrates, romain RUL involvement perists. IMPRESSION / MAJOR PROBLEMS NOW: 1. Acute hypoxemic resp failure 2 Bilateral pneumonia 2. Severe Sepsis with Shock 2 #1, r/o Bacteremia, + E.coli UTI 3. s/p Paroxysmal A Fib with RVR 4. s/p Hyponatremia with Azotemia/ Dehydration 5. h/o Dementia PLAN: 1. Day #5 MV support, unable to decrease FIo2 from 50%, remains on empiric abx / afx coverage. CXR pattern overall unchanged. Repeat sputum Cx show yeast. Blood Cxs negative so far. 2. Ongoing hydration, improved BUN / Cr today, will give 24H of D5W, on 200ml Q4H free water, follow serum Na levels, too. 3. Metoprolol added to medication regimen. 4. Son requested DNR status yesterday, may be deciding on terminal extubation if he does not improve over the next few days.
[2018-05-29] MEDS: Clindamycin 600 MG in Sodium Chloride 0.9% 100 ML IVPB SCH (09:29)
[2018-05-29] MEDS: Vitamins A & D Oint UD Foilpak TOP SCH ×2 (09:33→17:09)
[2018-05-29] MEDS: Acetaminophen 650mg/20.3ml solution UD PO PRN ×2 (09:54→20:45)
[2018-05-29 10:41] LABS: BANDS 3 % (0-2); EOSINOPHIL 1 % (0-7); LYMPHOCYTE 2 % (20-50); MONOCYTE 6 % (0-10); NEUTROPHIL 88 % (42-75); TOTAL CELLS COUNTED 100
--- NOTE | 2018-05-29 10:42 | RAD ---
Date of service: 05/29/2018 PROCEDURE: CHEST RADIOGRAPH, 1 VIEW HISTORY: protocol COMPARISON: Chest radiograph dated 05/28/2018. FINDINGS: LUNGS: Stable multifocal right lung opacities without significant change. PLEURA: Small right effusion not excluded. CARDIOVASCULAR: Aortic atherosclerotic calcifications. Cardiomediastinal silhouette stably enlarged. OSSEOUS STRUCTURES: Unchanged. VISUALIZED UPPER ABDOMEN: Normal. OTHER FINDINGS: Endotracheal and enteric tubes, unchanged. IMPRESSION: Stable tubes and lines. Stable multifocal right lung airspace disease. Small right effusion not excluded. No significant interval change.
[2018-05-29 10:44] LABS: PLATELET ESTIMATE NORMAL (NORMAL)
[2018-05-29 10:45] LABS: ANISOCYTOSIS SLIGHT; HYPOCHROMIC SLIGHT; OVALOCYTES SLIGHT; SCHISTOCYTES SLIGHT; TEARDROP CELLS SLIGHT
[2018-05-29] MEDS: Levalbuterol 0.63 MG/3 ML Inhal Soln UD INH PRN ×2 (15:33→23:38)
[2018-05-29] MEDS: Fluconazole IV 100mg/50 ml NS 50 ML IVPB SCH (17:07)
[2018-05-30] MEDS: Meropenem 1 GM in Sodium Chloride 0.9% 100 ML IVPB SCH ×3 (01:24→16:52)
[2018-05-30] MEDS: Proshield Plus GEL TOP SCH ×3 (01:25→16:54)
[2018-05-30] MEDS: Artificial Tears Opht Soln OU SCH ×4 (03:46→21:18)
[2018-05-30 05:19] LABS: HEMOGLOBIN 9.3 g/dL (12.0-18.0); MEAN CELL VOLUME 82.8 fl (80.0-94.0); MEAN CORPUSCULAR HEMOGLOBIN 26.3 pg (27.0-31.0); MEAN CORPUSCULAR HGB CONC 31.7 g/dL (33.0-37.0); RBC 3.54 Mil/uL (4.40-5.90); RED CELL DISTRIBUTION WIDTH 15.5 % (11.5-14.5); WHITE BLOOD COUNT 15.8 K/uL (4.8-10.8)
[2018-05-30 05:59] LABS: ALB/GLOB RATIO 0.7 (1.0-2.1); ALBUMIN 2.4 g/dL (3.5-5.0); ALT/SGPT 41 U/L (21-72); AST/SGOT 44 U/L (17-59); BLOOD UREA NITROGEN 37 mg/dl (9-20); CALCIUM 8.5 mg/dL (8.4-10.2); GFR NON-AFRICAN AMERICAN > 60
--- NOTE | 2018-05-30 07:20 | CP.CCUPN ---
CCU Subjective - Physician Review Subjective (Free Text): No change in overall status, opens eyes spontaneously, but not interactive, not following any specific commands; on MV, breathing 21 on AC 14, TV 500ml, SPo2 97% on 50% fiO2. NO RECURRENT FEVER spike overnight, but now with Ts in the 99F range. SBPs 130 -170s, HR 100s sinus with PACs. Other vitals and I/O's reviewed. Fluid balance positive 1.9 L out last 24H. On OGT feed with Glucerna 45 ml/hr. ROS: No other pertinent negs or positives on 10+ system review obtainable due to sedation. PMSFH: All other Nursing and physician documentation reviewed to date; no new pertinent info noted relevant to current medical problems. EXAM- HEENT: no icterus, no gaze preference, pupils reactive, no nystagmus NECK: no JVD visible, supple, carotids equal upstroke bilat/no bruit CHEST: decreased BS at the bases, no wheezes audible HEART: regular, distant, S1S2, no rubs ABD: soft, no distension, no focal tenderness, no tympany, no guarding, no organomegaly, BS hypoactive. EXT: + LE edema, no mottling; no calf tenderness or palpable cords, distal pulses intact and symmetrical, no cyanosis, no mottling. NEURO: + tone, withdraws to pain x 4. SKIN: no rashes, warm and dry LABS: WBC= 15.8 HGB= 9.3 PLTs= 227K Na= 146 K= 3.8 CL= 105 HCO3= 33 BUN/Cr= 37/0.7 BS= 172 CXR; (my interp) ETT position OK above brianne, marked R sided infiltrates, no improvement noted. IMPRESSION / MAJOR PROBLEMS NOW: 1. Acute hypoxemic resp failure 2 Bilateral pneumonia 2. Severe Sepsis with Shock 2 #1, r/o Bacteremia, + E.coli UTI 3. s/p Paroxysmal A Fib with RVR 4. s/p Hyponatremia with Azotemia/ Dehydration 5. h/o Dementia PLAN: 1. Day #6 MV support, will try to decrease FIo2 from 50%. SBT performed on CPAP PS with PS levels up to 18. Minute ventilation requirements noted to be increased at 13.1, RR 26. Mental status also not amenable to MV weans. 2. Remains on empiric abx / afx coverage. CXR pattern overall unchanged. Repeat sputum Cx show yeast. Blood Cxs negative so far. 3. Ongoing hydration, improved BUN / Cr today, on 200ml Q4H free water, follow serum Na levels, too. 4. No further tachyarrythmias. Metoprolol added to medication regimen. 5. Son requested DNR status, states he may be deciding on terminal extubation if he does not improve over the next few days.
[2018-05-30] MEDS: Ipratropium 0.02% Inhal Soln (0.5 mg/2.5 ml) UD IH SCH ×2 (07:34→15:44)
[2018-05-30] MEDS: Acetylcysteine 10% 4 ML IH SCH ×2 (07:34→15:46)
[2018-05-30] MEDS: Levalbuterol 0.63 MG/3 ML Inhal Soln UD INH PRN (07:34)
[2018-05-30] MEDS: Vitamins A & D Oint UD Foilpak TOP SCH ×3 (09:03→16:55)
--- NOTE | 2018-05-30 11:11 | RAD ---
Date of service: 05/30/2018 HISTORY: Pt. intubated COMPARISON: Chest radiograph dated 05/29/2018. FINDINGS: LUNGS: Stable multifocal right lung opacities without significant change. PLEURA: Small right effusion not excluded. CARDIOVASCULAR: Aortic atherosclerotic calcifications. Cardiomediastinal silhouette stably enlarged. OSSEOUS STRUCTURES: Unchanged. VISUALIZED UPPER ABDOMEN: Normal. OTHER FINDINGS: Endotracheal and enteric tubes, unchanged. IMPRESSION: Stable tubes and lines. Stable multifocal right lung airspace disease. Small right effusion not excluded. No significant interval change.
--- NOTE | 2018-05-30 12:48 | CP.PCM.PN ---
Subjective - Date & Time of Evaluation Date of Evaluation: 05/29/18 Time of Evaluation: 12:40 - Subjective Subjective: PROGRESS NOTE FOR 05/29/18. F/U Respiratory Failure Pt intubated, minimal response to tactile stimuli. Objective - Vital Signs/Intake and Output Vital Signs (last 24 hours): Temp Pulse Resp BP Pulse Ox 99.1 F 70 17 133/79 94 L 05/30/18 08:00 05/30/18 10:00 05/30/18 10:00 05/30/18 10:00 05/30/18 10:00 Intake and Output: 05/30/18 05/30/18 06:59 18:59 Intake Total 1560 850 Output Total 550 Balance 1010 850 - Medications Medications: Current Medications Acetaminophen (Tylenol 650mg/20.3ml Solution Ud) 650 mg PO Q4 PRN PRN Reason: Temperature Last Admin: 05/29/18 20:45 Dose: 650 mg Acetylcysteine (Mucomyst 10% 4ml) 2 ml IH RQ8 [facility] Last Admin: 05/30/18 07:34 Dose: 2 ml Alendronate Sodium (Fosamax) 70 mg PO FR [facility] Last Admin: 05/21/18 10:29 Dose: 70 mg Artificial Tears (Artificial Tears) 2 drop OU Q6 [facility] Last Admin: 05/30/18 08:59 Dose: 2 drop Calcium Carbonate (Oscal) 500 mg PO BID [facility] Last Admin: 05/21/18 10:26 Dose: 500 mg Cholecalciferol (Vitamin D) 1,000 intlu PO BID [facility] Last Admin: 05/21/18 10:27 Dose: 1,000 intlu Dimethicone (Proshield Plus Skin Protectant) 1 applic TOP Q8 [facility] Last Admin: 05/30/18 09:01 Dose: 1 applic Donepezil HCl (Aricept) 5 mg PO HS [facility] Last Admin: 05/20/18 21:28 Dose: 5 mg Meropenem 1 gm/ Sodium (Chloride) 100 mls @ 100 mls/hr IVPB Q8 [facility]; Protocol Last Admin: 05/30/18 09:00 Dose: 100 mls/hr Fluconazole (Diflucan Iv 100 Mg/50 Ml Ns) 50 mls @ 50 mls/hr IVPB DAILY@1400 [facility]; Protocol Last Admin: 05/29/18 17:07 Dose: 50 mls/hr Vancomycin HCl 750 mg/ Sodium (Chloride) 250 mls @ 166.667 mls/hr IVPB Q12 [facility]; Protocol Last Admin: 05/30/18 09:02 Dose: 166.667 mls/hr Ipratropium [place] (Atrovent) 0.5 mg IH RQ8 [facility] Last Admin: 05/30/18 07:34 Dose: 0.5 mg Levalbuterol HCl (Xopenex) 0.63 mg INH RQ8 PRN PRN Reason: Shortness of Breath Last Admin: 05/30/18 07:34 Dose: 0.63 mg Memantine (Namenda) 5 mg PO Q12 [facility] Last Admin: 05/21/18 10:25 Dose: 5 mg Metoprolol Tartrate (Lopressor) 50 mg PO Q12 [facility] Last Admin: 05/30/18 08:59 Dose: 50 mg Multivitamins/Minerals (Therapeutic-M Tab) 1 tab PO DAILY [facility] Last Admin: 05/21/18 10:27 Dose: 1 tab Nystatin (Nystop Topical Powder) 1 applic TOP Q8H [facility] Last Admin: 05/30/18 09:29 Dose: 1 applic Pantoprazole Sodium (Protonix Inj) 40 mg IVP DAILY [facility] Last Admin: 05/30/18 09:02 Dose: 40 mg Senna/Docusate Sodium (Senokot S 50 Mg-8.6 Mg) 1 tab PO HS [facility] Last Admin: 05/20/18 21:29 Dose: 1 tab Tamsulosin HCl (Flomax) 0.4 mg PO QPM [facility] Last Admin: 05/20/18 17:19 Dose: 0.4 mg Vitamin A (Vitamin A & D Oint Ud Foilpak) 1 ea TOP BID [facility] Last Admin: 05/30/18 09:04 Dose: 1 ea - Labs Labs: 05/30/18 05:00 05/30/18 05:00 PT 15.7 Seconds (9.8-13.1) H 05/12/18 07:50 INR 1.4 05/12/18 07:50 APTT 34.4 Seconds (25.6-37.1) 05/12/18 07:50 - Constitutional Appears: Chronically Ill - Head Exam Head Exam: NORMAL INSPECTION - Eye Exam Eye Exam: PERRL - ENT Exam Additional comments: Intubated, OGT - Neck Exam Neck Exam: Normal Inspection - Respiratory Exam Respiratory Exam: Decreased Breath Sounds (at bases), Rhonchi (b/l) - Cardiovascular Exam Cardiovascular Exam: REGULAR RHYTHM - GI/Abdominal Exam GI & Abdominal Exam: Soft, Normal Bowel Sounds - Exam Additional comments: Cerrato Cath - Extremities Exam Additional comments: Edema - Back Exam Additional comments: Sacral ulcer - Neurological Exam Additional comments: Intubated, minimal response to tactile stimuli, does not follows commands. - Skin Skin Exam: Warm Assessment and Plan (1) Respiratory failure Status: Acute (2) Aspiration pneumonia Status: Acute (3) E. coli UTI Status: Acute (4) Fever Status: Resolved (5) Sepsis syndrome Status: Acute (6) Hypoxemia Status: Chronic (7) Esophageal dilatation Status: Chronic (8) Dementia Status: Chronic (9) HTN (hypertension) Status: Chronic (10) DMII (diabetes mellitus, type 2) Status: Chronic - Assessment and Plan (Free Text) Plan: Continue respiratory support, FIO2 50%,no able to wean from vent., PT on DNR yesterday as per family request, leukocytosis improved, continue Diflucan, Vanco, Merren , f/u Bronchial washings C-S, continue rest of treatment. Critical care time: 33 min.
[2018-05-30] MEDS: Fluconazole IV 100mg/50 ml NS 50 ML IVPB SCH (13:27)
[2018-05-30] MEDS: Acetaminophen 650mg/20.3ml solution UD PO PRN (13:28)
[2018-05-30 14:45] LABS: ABG ALLEN TEST YES; ARTERIAL BLOOD GAS HCO3 34.8 mmol/L (21-28); ARTERIAL BLOOD GAS HEMOGLOBIN 8.8 g/dL (11.7-17.4); ARTERIAL BLOOD GAS O2 CAPACITY 12.1 mL/dL (16-24); ARTERIAL BLOOD GAS O2 SAT 98.8 % (95-98); ARTERIAL BLOOD GAS PCO2 39 mm/Hg (35-45); ARTERIAL BLOOD GAS PH 7.57 (7.35-7.45); ARTERIAL BLOOD GAS PO2 69 mm/Hg (80-100); ARTERIAL BLOOD GAS TCO2 36.9 mmol/L (22-28)
--- NOTE | 2018-05-30 14:53 | CP.PCM.PN ---
Subjective - Date & Time of Evaluation Date of Evaluation: 05/30/18 Time of Evaluation: 14:10 - Subjective Subjective: intubated, minimal response to tactil stimuli Objective - Vital Signs/Intake and Output Vital Signs (last 24 hours): Temp Pulse Resp BP Pulse Ox 100.4 F H 73 25 H 130/72 97 05/30/18 13:28 05/30/18 14:00 05/30/18 14:00 05/30/18 14:00 05/30/18 14:00 Intake and Output: 05/30/18 05/30/18 06:59 18:59 Intake Total 1560 850 Output Total 550 Balance 1010 850 - Medications Medications: Current Medications Acetaminophen (Tylenol 650mg/20.3ml Solution Ud) 650 mg PO Q4 PRN PRN Reason: Temperature Last Admin: 05/30/18 13:28 Dose: 650 mg Acetylcysteine (Mucomyst 10% 4ml) 2 ml IH RQ8 [facility] Last Admin: 05/30/18 07:34 Dose: 2 ml Alendronate Sodium (Fosamax) 70 mg PO FR [facility] Last Admin: 05/21/18 10:29 Dose: 70 mg Artificial Tears (Artificial Tears) 2 drop OU Q6 [facility] Last Admin: 05/30/18 08:59 Dose: 2 drop Calcium Carbonate (Oscal) 500 mg PO BID [facility] Last Admin: 05/21/18 10:26 Dose: 500 mg Cholecalciferol (Vitamin D) 1,000 intlu PO BID [facility] Last Admin: 05/21/18 10:27 Dose: 1,000 intlu Dimethicone (Proshield Plus Skin Protectant) 1 applic TOP Q8 [facility] Last Admin: 05/30/18 09:01 Dose: 1 applic Donepezil HCl (Aricept) 5 mg PO HS [facility] Last Admin: 05/20/18 21:28 Dose: 5 mg Meropenem 1 gm/ Sodium (Chloride) 100 mls @ 100 mls/hr IVPB Q8 [facility]; Protocol Last Admin: 05/30/18 09:00 Dose: 100 mls/hr Fluconazole (Diflucan Iv 100 Mg/50 Ml Ns) 50 mls @ 50 mls/hr IVPB DAILY@1400 [facility]; Protocol Last Admin: 05/30/18 13:27 Dose: 50 mls/hr Vancomycin HCl 750 mg/ Sodium (Chloride) 250 mls @ 166.667 mls/hr IVPB Q12 [facility]; Protocol Last Admin: 05/30/18 09:02 Dose: 166.667 mls/hr Ipratropium [place] (Atrovent) 0.5 mg IH RQ8 [facility] Last Admin: 05/30/18 07:34 Dose: 0.5 mg Levalbuterol HCl (Xopenex) 0.63 mg INH RQ8 PRN PRN Reason: Shortness of Breath Last Admin: 05/30/18 07:34 Dose: 0.63 mg Memantine (Namenda) 5 mg PO Q12 [facility] Last Admin: 05/21/18 10:25 Dose: 5 mg Metoprolol Tartrate (Lopressor) 50 mg PO Q12 [facility] Last Admin: 05/30/18 08:59 Dose: 50 mg Multivitamins/Minerals (Therapeutic-M Tab) 1 tab PO DAILY [facility] Last Admin: 05/21/18 10:27 Dose: 1 tab Nystatin (Nystop Topical Powder) 1 applic TOP Q8H [facility] Last Admin: 05/30/18 09:29 Dose: 1 applic Pantoprazole Sodium (Protonix Inj) 40 mg IVP DAILY [facility] Last Admin: 05/30/18 09:02 Dose: 40 mg Senna/Docusate Sodium (Senokot S 50 Mg-8.6 Mg) 1 tab PO HS [facility] Last Admin: 05/20/18 21:29 Dose: 1 tab Tamsulosin HCl (Flomax) 0.4 mg PO QPM [facility] Last Admin: 05/20/18 17:19 Dose: 0.4 mg Vitamin A (Vitamin A & D Oint Ud Foilpak) 1 ea TOP BID [facility] Last Admin: 05/30/18 09:04 Dose: 1 ea - Labs Labs: 05/30/18 05:00 05/30/18 05:00 PT 15.7 Seconds (9.8-13.1) H 05/12/18 07:50 INR 1.4 05/12/18 07:50 APTT 34.4 Seconds (25.6-37.1) 05/12/18 07:50 - Constitutional Appears: Chronically Ill - Head Exam Head Exam: NORMAL INSPECTION - Eye Exam Eye Exam: PERRL - ENT Exam Additional comments: intubated, OGT - Neck Exam Neck Exam: Tenderness - Respiratory Exam Respiratory Exam: Decreased Breath Sounds (at bases), Rhonchi (scattered) - Cardiovascular Exam Cardiovascular Exam: REGULAR RHYTHM - GI/Abdominal Exam GI & Abdominal Exam: Soft, Normal Bowel Sounds - Extremities Exam Additional comments: edema - Back Exam Additional comments: sacral ulcer - Neurological Exam Additional comments: intubated, minimal spontaneous movements with U/E and head - Skin Skin Exam: Warm Assessment and Plan (1) Respiratory failure Status: Acute (2) Aspiration pneumonia Status: Acute (3) E. coli UTI Status: Acute (4) Fever Status: Resolved (5) Sepsis syndrome Status: Acute (6) Hypoxemia Status: Chronic (7) Esophageal dilatation Status: Chronic (8) Dementia Status: Chronic (9) HTN (hypertension) Status: Chronic (10) DMII (diabetes mellitus, type 2) Status: Chronic - Assessment and Plan (Free Text) Plan: s/p FOB , f/u bronchial washings C-S, CXR R PNA no change, continue ventilatory support, Merren, Vanco, Diflucan and rest of Tx Critical care time: 32 min.
[2018-05-31] MEDS: Meropenem 1 GM in Sodium Chloride 0.9% 100 ML IVPB SCH ×3 (00:48→16:23)
[2018-05-31] MEDS: Proshield Plus GEL TOP SCH ×3 (00:51→16:24)
[2018-05-31 04:38] LABS: BLOOD UREA NITROGEN 31 mg/dl (9-20); CALCIUM 7.8 mg/dL (8.4-10.2); GFR NON-AFRICAN AMERICAN > 60
[2018-05-31 04:50] LABS: HEMOGLOBIN 8.3 g/dL (12.0-18.0); MEAN CELL VOLUME 82.7 fl (80.0-94.0); MEAN CORPUSCULAR HEMOGLOBIN 26.3 pg (27.0-31.0); MEAN CORPUSCULAR HGB CONC 31.8 g/dL (33.0-37.0); RBC 3.15 Mil/uL (4.40-5.90); RED CELL DISTRIBUTION WIDTH 15.9 % (11.5-14.5); WHITE BLOOD COUNT 12.8 K/uL (4.8-10.8)
[2018-05-31 04:56] LABS: ABG ALLEN TEST YES; ARTERIAL BLOOD GAS HCO3 34.7 mmol/L (21-28); ARTERIAL BLOOD GAS O2 SAT 99.7 % (95-98); ARTERIAL BLOOD GAS PCO2 40 mm/Hg (35-45); ARTERIAL BLOOD GAS PH 7.56 (7.35-7.45); ARTERIAL BLOOD GAS PO2 126 mm/Hg (80-100)
[2018-05-31] MEDS: Artificial Tears Opht Soln OU SCH ×4 (05:24→21:50)
[2018-05-31] MEDS: Acetylcysteine 10% 4 ML IH SCH ×4 (07:20→23:30)
[2018-05-31] MEDS: Ipratropium 0.02% Inhal Soln (0.5 mg/2.5 ml) UD IH SCH ×4 (07:21→23:30)
[2018-05-31] MEDS: Vitamins A & D Oint UD Foilpak TOP SCH ×3 (09:08→16:24)
--- NOTE | 2018-05-31 09:21 | RAD ---
Date of service: 05/31/2018 HISTORY: reevaluatr COMPARISON: Portable chest 05/30/2018. FINDINGS: LUNGS: Endotracheal and nasogastric tubes are unchanged in position. Perihilar and right upper lobe infiltrate are unchanged. Improved aeration is seen the right base reflecting diminished atelectasis. PLEURA: No significant pleural effusion identified, no pneumothorax apparent. CARDIOVASCULAR: Calcific atherosclerotic changes are seen related to the thoracic aorta. Stable cardiac silhouette. No pulmonary vascular congestion. OSSEOUS STRUCTURES: No significant abnormalities. VISUALIZED UPPER ABDOMEN: Normal. OTHER FINDINGS: None. IMPRESSION: Stable right-sided infiltrates with diminished right basilar atelectasis. No pulmonary vascular congestion or acute left-sided pulmonary findings.
[2018-05-31] MEDS: Acetaminophen 650mg/20.3ml solution UD PO PRN (10:03)
--- NOTE | 2018-05-31 10:39 | CP.PCM.PN ---
Subjective - Date & Time of Evaluation Date of Evaluation: 05/31/18 Time of Evaluation: 10:39 - Subjective Subjective: ID Note- Patient seen and examined in ICU today. remains intubated. lethargic. does try to open his eyes when his name is called. Patient is s/p bronch 3 days ago. Objective - Vital Signs/Intake and Output Vital Signs (last 24 hours): Temp Pulse Resp BP Pulse Ox 100.4 F H 78 21 136/76 99 05/31/18 10:03 05/31/18 09:04 05/31/18 08:00 05/31/18 09:04 05/31/18 08:00 Intake and Output: 05/31/18 05/31/18 06:59 18:59 Intake Total 1710 550 Output Total 800 Balance 910 550 - Medications Medications: Current Medications Acetaminophen (Tylenol 650mg/20.3ml Solution Ud) 650 mg PO Q4 PRN PRN Reason: Temperature Last Admin: 05/31/18 10:03 Dose: 650 mg Acetylcysteine (Mucomyst 10% 4ml) 2 ml IH RQ8 KEN Last Admin: 05/31/18 07:20 Dose: 2 ml Alendronate Sodium (Fosamax) 70 mg PO FR KEN Last Admin: 05/21/18 10:29 Dose: 70 mg Artificial Tears (Artificial Tears) 2 drop OU Q6 KEN Last Admin: 05/31/18 09:03 Dose: 2 drop Calcium Carbonate (Oscal) 500 mg PO BID KEN Last Admin: 05/21/18 10:26 Dose: 500 mg Cholecalciferol (Vitamin D) 1,000 intlu PO BID KEN Last Admin: 05/21/18 10:27 Dose: 1,000 intlu Dimethicone (Proshield Plus Skin Protectant) 1 applic TOP Q8 KEN Last Admin: 05/31/18 09:05 Dose: 1 applic Donepezil HCl (Aricept) 5 mg PO HS [facility] Last Admin: 05/20/18 21:28 Dose: 5 mg Enoxaparin Sodium (Lovenox) 40 mg SC DAILY KEN; Protocol Meropenem 1 gm/ Sodium (Chloride) 100 mls @ 100 mls/hr IVPB Q8 KEN; Protocol Last Admin: 05/31/18 09:04 Dose: 100 mls/hr Fluconazole (Diflucan Iv 100 Mg/50 Ml Ns) 50 mls @ 50 mls/hr IVPB DAILY@1400 KEN; Protocol Last Admin: 05/30/18 13:27 Dose: 50 mls/hr Vancomycin HCl 750 mg/ Sodium (Chloride) 250 mls @ 166.667 mls/hr IVPB Q12 [facility]; Protocol Last Admin: 05/31/18 09:06 Dose: 166.667 mls/hr Ipratropium [place] (Atrovent) 0.5 mg IH RQ8 KEN Last Admin: 05/31/18 07:21 Dose: 0.5 mg Memantine (Namenda) 5 mg PO Q12 KEN Last Admin: 05/21/18 10:25 Dose: 5 mg Metoprolol Tartrate (Lopressor) 50 mg PO Q12 [facility] Last Admin: 05/31/18 09:04 Dose: 50 mg Multivitamins/Minerals (Therapeutic-M Tab) 1 tab PO DAILY [facility] Last Admin: 05/21/18 10:27 Dose: 1 tab Nystatin (Nystop Topical Powder) 1 applic TOP Q8H [facility] Last Admin: 05/31/18 00:23 Dose: 1 applic Pantoprazole Sodium (Protonix Inj) 40 mg IVP DAILY [facility] Last Admin: 05/31/18 09:05 Dose: 40 mg Senna/Docusate Sodium (Senokot S 50 Mg-8.6 Mg) 1 tab PO HS [facility] Last Admin: 05/20/18 21:29 Dose: 1 tab Tamsulosin HCl (Flomax) 0.4 mg PO QPM [facility] Last Admin: 05/20/18 17:19 Dose: 0.4 mg Vitamin A (Vitamin A & D Oint Ud Foilpak) 1 ea TOP BID [facility] Last Admin: 05/31/18 09:09 Dose: 1 ea - Labs Labs: - Additional Findings Additional findings: - Constitutional Appears: Chronically Ill - ENT Exam Additional comments: ET tube in place - Respiratory Exam Additional comments: decreased breath sounds on the right side - Cardiovascular Exam Cardiovascular Exam: Tachycardia, +S1, +S2 - GI/Abdominal Exam GI & Abdominal Exam: Soft, Normal Bowel Sounds Additional comments: ND, NT - Extremities Exam Extremities Exam: Normal Inspection - Neurological Exam Additional comments: Intubated and lethargic Laboratory Results - last 72 hr 05/28/18 05/28/18 05/28/18 04:50 16:27 20:55 WBC RBC Hgb Hct MCV MCH MCHC RDW Plt Count MPV Neut % (Auto) Lymph % (Auto) Todd % (Auto) Eos % (Auto) Baso % (Auto) Neut # (Auto) Lymph # (Auto) Todd # (Auto) Eos # (Auto) Baso # (Auto) Neutrophils % (Manual) 91 H Band Neutrophils % 3 H Lymphocytes % (Manual) 2 L Monocytes % (Manual) 3 Eosinophils % (Manual) 1 Platelet Estimate Normal Hypochromasia (manual) Slight Anisocytosis (manual) Slight Tear Drop Cells Slight Ovalocytes Slight Schistocytes Slight pCO2 pO2 HCO3 ABG pH ABG Total CO2 ABG O2 Saturation ABG O2 Content ABG Base Excess ABG Hemoglobin ABG Carboxyhemoglobin POC ABG HHb (Measured) ABG Methemoglobin ABG O2 Capacity Forrest Test ABG Potassium A-a O2 Difference Hgb O2 Saturation Glucose Lactate Vent Mode Mechanical Rate FiO2 Tidal Volume PEEP Sodium Potassium Chloride Carbon Dioxide Anion Gap BUN Creatinine Est GFR ( Amer) Est GFR (Non-Af Amer) POC Glucose (mg/dL) 80 109 Random Glucose Calcium Total Bilirubin AST ALT Alkaline Phosphatase Total Protein Albumin Globulin Albumin/Globulin Ratio Arterial Blood Potassium Vancomycin Trough 05/29/18 05/29/18 05/29/18 04:15 04:15 04:15 WBC 21.2 H RBC 4.01 L Hgb 10.5 L Hct 33.8 L MCV 84.4 MCH 26.1 L MCHC 30.9 L RDW 16.2 H Plt Count 265 MPV 10.2 Neut % (Auto) 92.6 H Lymph % (Auto) 2.2 L Todd % (Auto) 3.9 Eos % (Auto) 0.5 Baso % (Auto) 0.8 Neut # (Auto) 19.6 H Lymph # (Auto) 0.5 L Todd # (Auto) 0.8 Eos # (Auto) 0.1 Baso # (Auto) 0.2 Neutrophils % (Manual) 88 H Band Neutrophils % 3 H Lymphocytes % (Manual) 2 L Monocytes % (Manual) 6 Eosinophils % (Manual) 1 Platelet Estimate Normal Hypochromasia (manual) Slight Anisocytosis (manual) Slight Tear Drop Cells Slight Ovalocytes Slight Schistocytes Slight pCO2 pO2 HCO3 ABG pH ABG Total CO2 ABG O2 Saturation ABG O2 Content ABG Base Excess ABG Hemoglobin ABG Carboxyhemoglobin POC ABG HHb (Measured) ABG Methemoglobin ABG O2 Capacity [place] Test ABG Potassium A-a O2 Difference Hgb O2 Saturation Glucose Lactate Vent Mode Mechanical Rate FiO2 Tidal Volume PEEP Sodium 144 Potassium 4.4 Chloride 106 Carbon Dioxide 28 Anion Gap 14 BUN 36 H Creatinine 0.6 L Est GFR ( Amer) > 60 Est GFR (Non-Af Amer) > 60 POC Glucose (mg/dL) Random Glucose 146 H Calcium 8.0 L Total Bilirubin 0.8 AST 33 ALT 40 Alkaline Phosphatase 119 Total Protein 6.2 L Albumin 2.6 L Globulin 3.6 Albumin/Globulin Ratio 0.7 L Arterial Blood Potassium Vancomycin Trough 14.5 H 05/29/18 05/29/18 05/29/18 04:28 11:25 17:01 WBC RBC Hgb Hct MCV MCH MCHC RDW Plt Count MPV Neut % (Auto) Lymph % (Auto) Todd % (Auto) Eos % (Auto) Baso % (Auto) Neut # (Auto) Lymph # (Auto) Todd # (Auto) Eos # (Auto) Baso # (Auto) Neutrophils % (Manual) Band Neutrophils % Lymphocytes % (Manual) Monocytes % (Manual) Eosinophils % (Manual) Platelet Estimate Hypochromasia (manual) Anisocytosis (manual) Tear Drop Cells Ovalocytes Schistocytes pCO2 38 pO2 79 L HCO3 30.8 H ABG pH 7.52 H ABG Total CO2 32.2 H ABG O2 Saturation 98.7 H ABG O2 Content 14.5 L ABG Base Excess 7.6 H ABG Hemoglobin 10.7 L ABG Carboxyhemoglobin 1.7 H POC ABG HHb (Measured) 1.3 ABG Methemoglobin 1.4 ABG O2 Capacity 14.7 L Forrest Test Yes ABG Potassium A-a O2 Difference 230.0 Hgb O2 Saturation 95.6 Glucose Lactate Vent Mode A/c Mechanical Rate 14 FiO2 50.0 Tidal Volume 500 PEEP 5 Sodium Potassium Chloride Carbon Dioxide Anion Gap BUN Creatinine Est GFR ( Amer) Est GFR (Non-Af Amer) POC Glucose (mg/dL) 127 H 153 H Random Glucose Calcium Total Bilirubin AST ALT Alkaline Phosphatase Total Protein Albumin Globulin Albumin/Globulin Ratio Arterial Blood Potassium Vancomycin Trough 05/29/18 05/30/18 05/30/18 20:51 04:51 05:00 WBC 15.8 H RBC 3.54 L Hgb 9.3 L Hct 29.3 L MCV 82.8 MCH 26.3 L MCHC 31.7 L RDW 15.5 H Plt Count 227 MPV Neut % (Auto) Lymph % (Auto) Todd % (Auto) Eos % (Auto) Baso % (Auto) Neut # (Auto) Lymph # (Auto) Todd # (Auto) Eos # (Auto) Baso # (Auto) Neutrophils % (Manual) Band Neutrophils % Lymphocytes % (Manual) Monocytes % (Manual) Eosinophils % (Manual) Platelet Estimate Hypochromasia (manual) Anisocytosis (manual) Tear Drop Cells Ovalocytes Schistocytes pCO2 39 pO2 69 L HCO3 34.8 H ABG pH 7.57 H ABG Total CO2 36.9 H ABG O2 Saturation 98.8 H ABG O2 Content 12.0 L ABG Base Excess 12.6 H ABG Hemoglobin 8.8 L ABG Carboxyhemoglobin 2.0 H POC ABG HHb (Measured) 1.2 ABG Methemoglobin 0.8 ABG O2 Capacity 12.1 L Forrest Test Yes ABG Potassium A-a O2 Difference 239.0 Hgb O2 Saturation 96.1 Glucose Lactate Vent Mode A/c Mechanical Rate 14 FiO2 50.0 Tidal Volume 500 PEEP 5 Sodium Potassium Chloride Carbon Dioxide Anion Gap BUN Creatinine Est GFR ( Amer) Est GFR (Non-Af Amer) POC Glucose (mg/dL) 151 H Random Glucose Calcium Total Bilirubin AST ALT Alkaline Phosphatase Total Protein Albumin Globulin Albumin/Globulin Ratio Arterial Blood Potassium Vancomycin Trough 05/30/18 05/30/18 05/30/18 05:00 05:24 11:13 WBC RBC Hgb Hct MCV MCH MCHC RDW Plt Count MPV Neut % (Auto) Lymph % (Auto) Todd % (Auto) Eos % (Auto) Baso % (Auto) Neut # (Auto) Lymph # (Auto) Todd # (Auto) Eos # (Auto) Baso # (Auto) Neutrophils % (Manual) Band Neutrophils % Lymphocytes % (Manual) Monocytes % (Manual) Eosinophils % (Manual) Platelet Estimate Hypochromasia (manual) Anisocytosis (manual) Tear Drop Cells Ovalocytes Schistocytes pCO2 pO2 HCO3 ABG pH ABG Total CO2 ABG O2 Saturation ABG O2 Content ABG Base Excess ABG Hemoglobin ABG Carboxyhemoglobin POC ABG HHb (Measured) ABG Methemoglobin ABG O2 Capacity [place] Test ABG Potassium A-a O2 Difference Hgb O2 Saturation Glucose Lactate Vent Mode Mechanical Rate FiO2 Tidal Volume PEEP Sodium 146 Potassium 3.8 Chloride 105 Carbon Dioxide 33 H Anion Gap 12 BUN 37 H Creatinine 0.7 L Est GFR ( Amer) > 60 Est GFR (Non-Af Amer) > 60 POC Glucose (mg/dL) 161 H 192 H Random Glucose 172 H Calcium 8.5 Total Bilirubin 0.6 AST 44 ALT 41 Alkaline Phosphatase 103 Total Protein 5.8 L Albumin 2.4 L Globulin 3.4 Albumin/Globulin Ratio 0.7 L Arterial Blood Potassium Vancomycin Trough 05/30/18 05/30/18 05/31/18 16:39 22:31 01:56 WBC RBC Hgb Hct MCV MCH MCHC RDW Plt Count MPV Neut % (Auto) Lymph % (Auto) Todd % (Auto) Eos % (Auto) Baso % (Auto) Neut # (Auto) Lymph # (Auto) Todd # (Auto) Eos # (Auto) Baso # (Auto) Neutrophils % (Manual) Band Neutrophils % Lymphocytes % (Manual) Monocytes % (Manual) Eosinophils % (Manual) Platelet Estimate Hypochromasia (manual) Anisocytosis (manual) Tear Drop Cells Ovalocytes Schistocytes pCO2 pO2 HCO3 ABG pH ABG Total CO2 ABG O2 Saturation ABG O2 Content ABG Base Excess ABG Hemoglobin ABG Carboxyhemoglobin POC ABG HHb (Measured) ABG Methemoglobin ABG O2 Capacity [place] Test ABG Potassium A-a O2 Difference Hgb O2 Saturation Glucose Lactate Vent Mode Mechanical Rate FiO2 Tidal Volume PEEP Sodium Potassium Chloride Carbon Dioxide Anion Gap BUN Creatinine Est GFR ( Amer) Est GFR (Non-Af Amer) POC Glucose (mg/dL) 189 H 162 H 141 H Random Glucose Calcium Total Bilirubin AST ALT Alkaline Phosphatase Total Protein Albumin Globulin Albumin/Globulin Ratio Arterial Blood Potassium Vancomycin Trough 05/31/18 05/31/18 05/31/18 03:26 04:00 04:15 WBC 12.8 H RBC 3.15 L Hgb 8.3 L Hct 26.0 L MCV 82.7 MCH 26.3 L MCHC 31.8 L RDW 15.9 H Plt Count 216 MPV Neut % (Auto) Lymph % (Auto) Todd % (Auto) Eos % (Auto) Baso % (Auto) Neut # (Auto) Lymph # (Auto) Todd # (Auto) Eos # (Auto) Baso # (Auto) Neutrophils % (Manual) Band Neutrophils % Lymphocytes % (Manual) Monocytes % (Manual) Eosinophils % (Manual) Platelet Estimate Hypochromasia (manual) Anisocytosis (manual) Tear Drop Cells Ovalocytes Schistocytes pCO2 40 pO2 126 H HCO3 34.7 H ABG pH 7.56 H ABG Total CO2 37.0 H ABG O2 Saturation 99.7 H ABG O2 Content ABG Base Excess 12.5 H ABG Hemoglobin ABG Carboxyhemoglobin POC ABG HHb (Measured) ABG Methemoglobin ABG O2 Capacity Forrest Test Yes ABG Potassium 3.5 L A-a O2 Difference 181.0 Hgb O2 Saturation Glucose 152 H Lactate 1.6 Vent Mode A/c Mechanical Rate 14 FiO2 50.0 Tidal Volume 500 PEEP 5 Sodium 144.0 Potassium Chloride 111.0 H Carbon Dioxide Anion Gap BUN Creatinine Est GFR ( Amer) Est GFR (Non-Af Amer) POC Glucose (mg/dL) 134 H Random Glucose Calcium Total Bilirubin AST ALT Alkaline Phosphatase Total Protein Albumin Globulin Albumin/Globulin Ratio Arterial Blood Potassium 3.5 L Vancomycin Trough 05/31/18 05/31/18 04:15 05:54 WBC RBC Hgb Hct MCV MCH MCHC RDW Plt Count MPV Neut % (Auto) Lymph % (Auto) Todd % (Auto) Eos % (Auto) Baso % (Auto) Neut # (Auto) Lymph # (Auto) Todd # (Auto) Eos # (Auto) Baso # (Auto) Neutrophils % (Manual) Band Neutrophils % Lymphocytes % (Manual) Monocytes % (Manual) Eosinophils % (Manual) Platelet Estimate Hypochromasia (manual) Anisocytosis (manual) Tear Drop Cells Ovalocytes Schistocytes pCO2 pO2 HCO3 ABG pH ABG Total CO2 ABG O2 Saturation ABG O2 Content ABG Base Excess ABG Hemoglobin ABG Carboxyhemoglobin POC ABG HHb (Measured) ABG Methemoglobin ABG O2 Capacity [place] Test ABG Potassium A-a O2 Difference Hgb O2 Saturation Glucose Lactate Vent Mode Mechanical Rate FiO2 Tidal Volume PEEP Sodium 142 Potassium 3.8 Chloride 103 Carbon Dioxide 30 Anion Gap 13 BUN 31 H Creatinine 0.5 L Est GFR ( Amer) > 60 Est GFR (Non-Af Amer) > 60 POC Glucose (mg/dL) 156 H Random Glucose 137 H Calcium 7.8 L Total Bilirubin AST ALT Alkaline Phosphatase Total Protein Albumin Globulin Albumin/Globulin Ratio Arterial Blood Potassium Vancomycin Trough Microbiology 05/28/18 05:00 Bronchial Washings Bronchial Culture - Preliminary Yeast Species 05/27/18 21:05 Blood-Venous Blood Culture - Preliminary NO GROWTH AFTER 3 DAYS 05/27/18 21:00 Blood-Venous Blood Culture - Preliminary NO GROWTH AFTER 3 DAYS 05/26/18 14:13 Blood-Venous Blood Culture - Preliminary NO GROWTH AFTER 4 DAYS 05/27/18 21:00 Trachasp Gram Stain - Final 05/27/18 21:00 Trachasp Sputum Culture - Final Yeast Species 05/24/18 14:15 Blood-Venous Blood Culture - Final NO GROWTH AFTER 5 DAYS 05/24/18 14:15 Blood-Venous Gram Stain - Final TEST NOT PERFORMED 05/24/18 14:00 Blood-Venous Blood Culture - Final NO GROWTH AFTER 5 DAYS 05/24/18 14:00 Blood-Venous Gram Stain - Final TEST NOT PERFORMED 05/27/18 21:00 Urine,Catheterized Urine Culture - Final No Growth (<1,000 CFU/ML) 05/24/18 15:00 Sputum Gram Stain - Final 05/24/18 15:00 Sputum Sputum Culture - Final Yeast Species 05/24/18 09:35 Urine,Catheterized Urine Culture - Final No Growth (<1,000 CFU/ML) 05/20/18 15:31 Blood-Venous Blood Culture - Final NO GROWTH AFTER 5 DAYS 05/20/18 15:31 Blood-Venous Gram Stain - Final TEST NOT PERFORMED 05/20/18 15:42 Blood-Venous Blood Culture - Final NO GROWTH AFTER 5 DAYS 05/20/18 15:42 Blood-Venous Gram Stain - Final TEST NOT PERFORMED 05/24/18 09:35 Naris MRSA Culture (Admit) - Final MRSA NOT DETECTED 05/21/18 16:57 Sputum Induced Gram Stain - Final 05/21/18 16:57 Sputum Induced Sputum Culture - Final Yeast Species 05/12/18 07:50 Blood Blood Culture - Final NO GROWTH AFTER 5 DAYS 05/12/18 07:50 Blood Gram Stain - Final TEST NOT PERFORMED 05/12/18 Unknown Blood Blood Culture - Final NO GROWTH AFTER 5 DAYS 05/12/18 Unknown Blood Gram Stain - Final TEST NOT PERFORMED 05/12/18 08:40 Urine,Catheterized Urine Culture - Final Escherichia Coli Accession No. : [id number] Patient Name / ID : TANNER BOWIE / [id number] Exam Date : 05/31/2018 04:20:37 ( Approved ) Study Comment : Sex / Age : M / [id number] Creator : Naveen Hernandez MD Dictator : Naveen Hernandez MD New Car Salesperson : Steaming Machine Operator : Naveen Hernandez MD Approver2 : Report Date : 05/31/2018 09:15:04 My Comment : Date of service: 05/31/2018 HISTORY: [email or web address] COMPARISON: Portable chest 05/30/2018. FINDINGS: LUNGS: Endotracheal and nasogastric tubes are unchanged in position. Perihilar and right upper lobe infiltrate are unchanged. Improved aeration is seen the right base reflecting diminished atelectasis. PLEURA: No significant pleural effusion identified, no pneumothorax apparent. CARDIOVASCULAR: Calcific atherosclerotic changes are seen related to the thoracic aorta. Stable cardiac silhouette. No pulmonary vascular congestion. OSSEOUS STRUCTURES: No significant abnormalities. VISUALIZED UPPER ABDOMEN: Normal. OTHER FINDINGS: None. IMPRESSION: Stable right-sided infiltrates with diminished right basilar atelectasis. No pulmonary vascular congestion or acute left-sided pulmonary findings. Assessment and Plan (1) Sepsis syndrome Status: Acute (2) Fever Status: Resolved (3) Hypoxemia Status: Chronic - Assessment and Plan (Free Text) Assessment: A/P- 82 year old [place] resident male with dementia, admitted with fever initially and had UTI and ? asp pneumonia and was treated with IV antibiotiocs and was fever free and normal wbc and doing ok but few days ago had aspiration pneumonia and hypoxemic and rapid a.fib and is s/p intubation and in ICU. remains intubated and lethargic. had bronch 3 days ago. leukocytosis much improved today. continues to have low grade fevers, however. cxr- right side infiltrates but improved compared to 3 days ago. admission UA- Pos LE, neg Nitrates admission urine cx- E.Coli pansensitive- treated for this already blood cx- neg x 5 sputum cx- yeast PLan- advise to continue with IV meropenem and clindamycin for added anaerobic coverage.day #7 also advise to continue with IV fluconazole for yeast in sputum.day #5 continue with vanco for extra coverage for pneumonitis and rising wbc.day #5 keep trough <15. await bronch washing gram stain and culture result. all labs and imaging and chart notes reviewed. critical care time spent 40 minutes.
--- NOTE | 2018-05-31 13:53 | US ---
Date of service: 05/31/2018 PROCEDURE: Upper Extremity Venous Duplex Exam HISTORY: r/o dvt PRIORS: None. TECHNIQUE: Bilateral upper extremity, internal jugular, subclavian, axillary, brachial, ulnar, radial, basilic and upper cephalic veins were evaluated. Flow was assessed with color Doppler, compressibility, assessment of phasic flow and augmentation response. Report prepared by systems technologist. FINDINGS: RIGHT: 1. Internal Jugular: 1.1. Compressibility - Fully compressible: Thrombus - None : Flow - Phasic: Augmentation -Normal: Reflux - None. 2. Subclavian: 2.1. Compressibility - Fully compressible: Thrombus - None : Flow - Phasic: Augmentation -Normal: Reflux - None. 3. Axillary: 3.1. Compressibility - Fully compressible: Thrombus - None : Flow - Phasic: Augmentation -Normal: Reflux - None. 4. Brachial: 4.1. Compressibility - Fully compressible: Thrombus - None: Flow - Phasic: Augmentation -Normal: Reflux - None. 5. Ulnar: 5.1. Compressibility - Fully compressible: Thrombus - None: Flow - Phasic: Augmentation -Normal: Reflux - None. 6. Radial: 6.1. Compressibility - Fully compressible: Thrombus - None: Flow - Phasic: Augmentation - Normal: Reflux - None. 7. Cephalic: 7.1. Compressibility - Fully compressible: Thrombus - None: Flow - Phasic: Augmentation -Normal: Reflux - None. 8. Basilic: 8.1. Compressibility - Fully compressible: Thrombus - None: Flow - Phasic: Augmentation -Normal: Reflux - None. LEFT: 1. Internal Jugular: 1.1. Compressibility - Fully compressible: Thrombus - None : Flow - Phasic: Augmentation -Normal: Reflux - None. 2. Subclavian: 2.1. Compressibility - Fully compressible: Thrombus - None : Flow - Phasic: Augmentation -Normal: Reflux - None. 3. Axillary: 3.1. Compressibility - Fully compressible: Thrombus - None : Flow - Phasic: Augmentation -Normal: Reflux - None. 4. Brachial: 4.1. Compressibility - Fully compressible: Thrombus - None: Flow - Phasic: Augmentation -Normal: Reflux - None. 5. Ulnar: 5.1. Compressibility - Fully compressible: Thrombus - None: Flow - Phasic: Augmentation -Normal: Reflux - None. 6. Radial: 6.1. Compressibility - Fully compressible: Thrombus - None: Flow - Phasic: Augmentation - Normal: Reflux - None. 7. Cephalic: 7.1. Compressibility - Fully compressible: Thrombus - None: Flow - Phasic: Augmentation -Normal: Reflux - None. 8. Basilic: 8.1. Compressibility - Fully compressible: Thrombus - None: Flow - Phasic: Augmentation -Normal: Reflux - None. OTHER FINDINGS: Right: Right upper extremity edema. Left: Left upper extremity edema. IMPRESSION: Right: No evidence of vein thrombosis of the right upper extremity with excellent venous flow. Normal valve function noted of the right side. Left: No evidence of vein thrombosis of the left upper extremity with excellent venous flow. Normal valve function noted of the left side. Both upper extremities are edematous. Concordant findings (preliminary report) provided by [facility].
[2018-05-31] MEDS: Fluconazole IV 100mg/50 ml NS 50 ML IVPB SCH (14:02)
[2018-05-31] MEDS: Enoxaparin 40 mg Syringe SC SCH (14:03)
--- NOTE | 2018-05-31 15:42 | CP.PCM.PN ---
Subjective - Date & Time of Evaluation Date of Evaluation: 05/31/18 Time of Evaluation: 10:40 - Subjective Subjective: F/U Respiratory failure. Minimal response to tactile stimuli, no spontaneous movements, on PRVC AC FIO2 50%. Objective - Vital Signs/Intake and Output Vital Signs (last 24 hours): Temp Pulse Resp BP Pulse Ox 100 F H 70 17 132/62 100 05/31/18 12:00 05/31/18 14:00 05/31/18 14:00 05/31/18 14:00 05/31/18 14:00 Intake and Output: 05/31/18 05/31/18 06:59 18:59 Intake Total 1710 800 Output Total 800 Balance 910 800 - Medications Medications: Current Medications Acetaminophen (Tylenol 650mg/20.3ml Solution Ud) 650 mg PO Q4 PRN PRN Reason: Temperature Last Admin: 05/31/18 10:03 Dose: 650 mg Acetylcysteine (Mucomyst 10% 4ml) 2 ml IH RQ8 [facility] Last Admin: 05/31/18 15:05 Dose: 2 ml Alendronate Sodium (Fosamax) 70 mg PO FR [facility] Last Admin: 05/21/18 10:29 Dose: 70 mg Artificial Tears (Artificial Tears) 2 drop OU Q6 [facility] Last Admin: 05/31/18 09:03 Dose: 2 drop Calcium Carbonate (Oscal) 500 mg PO BID KEN Last Admin: 05/21/18 10:26 Dose: 500 mg Cholecalciferol (Vitamin D) 1,000 intlu PO BID [facility] Last Admin: 05/21/18 10:27 Dose: 1,000 intlu Dimethicone (Proshield Plus Skin Protectant) 1 applic TOP Q8 [facility] Last Admin: 05/31/18 09:05 Dose: 1 applic Donepezil HCl (Aricept) 5 mg PO HS [facility] Last Admin: 05/20/18 21:28 Dose: 5 mg Enoxaparin Sodium (Lovenox) 40 mg SC DAILY [facility]; Protocol Last Admin: 05/31/18 14:03 Dose: 40 mg Meropenem 1 gm/ Sodium (Chloride) 100 mls @ 100 mls/hr IVPB Q8 [facility]; Protocol Last Admin: 05/31/18 09:04 Dose: 100 mls/hr Fluconazole (Diflucan Iv 100 Mg/50 Ml Ns) 50 mls @ 50 mls/hr IVPB DAILY@1400 [facility]; Protocol Last Admin: 05/31/18 14:02 Dose: 50 mls/hr Vancomycin HCl 750 mg/ Sodium (Chloride) 250 mls @ 166.667 mls/hr IVPB Q12 [facility]; Protocol Last Admin: 05/31/18 09:06 Dose: 166.667 mls/hr Ipratropium [place] (Atrovent) 0.5 mg IH RQ8 [facility] Last Admin: 05/31/18 15:05 Dose: 0.5 mg Memantine (Namenda) 5 mg PO Q12 [facility] Last Admin: 05/21/18 10:25 Dose: 5 mg Metoprolol Tartrate (Lopressor) 50 mg PO Q12 [facility] Last Admin: 05/31/18 09:04 Dose: 50 mg Multivitamins/Minerals (Therapeutic-M Tab) 1 tab PO DAILY [facility] Last Admin: 05/21/18 10:27 Dose: 1 tab Nystatin (Nystop Topical Powder) 1 applic TOP Q8H [facility] Last Admin: 05/31/18 12:20 Dose: 1 applic Pantoprazole Sodium (Protonix Inj) 40 mg IVP DAILY [facility] Last Admin: 05/31/18 09:05 Dose: 40 mg Senna/Docusate Sodium (Senokot S 50 Mg-8.6 Mg) 1 tab PO HS [facility] Last Admin: 05/20/18 21:29 Dose: 1 tab Tamsulosin HCl (Flomax) 0.4 mg PO QPM [facility] Last Admin: 05/20/18 17:19 Dose: 0.4 mg Vitamin A (Vitamin A & D Oint Ud Foilpak) 1 ea TOP BID [facility] Last Admin: 05/31/18 09:09 Dose: 1 ea - Labs Labs: 05/31/18 04:15 05/31/18 04:15 PT 15.7 Seconds (9.8-13.1) H 05/12/18 07:50 INR 1.4 05/12/18 07:50 APTT 34.4 Seconds (25.6-37.1) 05/12/18 07:50 - Constitutional Appears: Chronically Ill - Head Exam Head Exam: NORMAL INSPECTION - Eye Exam Eye Exam: PERRL - ENT Exam Additional comments: Intubated. OGT - Neck Exam Neck Exam: Normal Inspection - Respiratory Exam Respiratory Exam: Decreased Breath Sounds (at bases), Rhonchi (scattered) - Cardiovascular Exam Cardiovascular Exam: REGULAR RHYTHM - GI/Abdominal Exam GI & Abdominal Exam: Soft, Normal Bowel Sounds - Extremities Exam Additional comments: Edema - Back Exam Additional comments: Sacral ulcer - Neurological Exam Additional comments: Intubated, minimal response to tactile stimuli, no spontaneous movements. - Skin Skin Exam: Warm Assessment and Plan (1) Respiratory failure Status: Acute (2) Aspiration pneumonia Status: Acute (3) E. coli UTI Status: Acute (4) Fever Status: Resolved (5) Sepsis syndrome Status: Acute (6) Hypoxemia Status: Chronic (7) Esophageal dilatation Status: Chronic (8) Dementia Status: Chronic (9) HTN (hypertension) Status: Chronic (10) DMII (diabetes mellitus, type 2) Status: Chronic - Assessment and Plan (Free Text) Plan: F/U bronchial wash report. Continue respiratory support, Merren, Vanco and rest of Tx. Critical care time: 34 min.
--- NOTE | 2018-05-31 19:40 | CP.CCUPN ---
CCU Subjective - Physician Review Subjective (Free Text): 05/31/18 The patient was Seen/interviewed and examined by me at the bedside during ICU round, Medical records reviewed and Management issues were discussed and formulated with the house staff. Events reviewed Patient is a 81 years old male with past medical history of hypertension, diabetes and dementia who initially presented to the emergency room by EMS from [facility] for evaluation of fever and sepsis He was transferred to the intensive care unit on May 24 after [employer] was called due to hypoxemia with hypotension, at that time his blood pressure was 96/50, HR 93 RR 22 and oxygen saturation was 82% He was transferred to the intensive care unit and required intubation and mechanical ventilation Currently he is managed in the ICU for acute hypoxemic respiratory failure secondary to bilateral pneumonia, severe sepsis/septic shock due to E. coli urinary tract infection This morning the patient is totally of all sedation but he still not following command, very lethargic, non verbal He did not tolerated CPAP trial, became tachypnea, Elevated blood pressure CCU Objective - Vital Signs / Intake & Output Vital Signs (Last 4 hours): Vital Signs Temp Pulse Resp BP Pulse Ox 05/31/18 18:00 75 22 120/59 L 100 05/31/18 16:00 99.5 F 69 24 143/78 100 Intake and Output (Last 8hrs): Intake & Output 05/31/18 05/31/18 05/31/18 06:59 14:59 22:59 Intake Total 1010 800 780 Output Total 400 700 Balance 610 800 80 Weight 166 lb Intake: IV 130 Intake, Piggyback 400 100 Tube Feeding 480 480 Free Water Flush 400 400 200 Output: Urine 400 700 Urethral (Cerrato) 400 700 - Physical Exam Physical Exam Limitations: Positive for: Altered Mental Status, Clinical Condition Head: Positive for: Atraumatic, Normocephalic Pupils: Positive for: PERRL Extroacular Muscles: Positive for: EOMI Conjunctiva: Positive for: Normal. Negative for: Injected, Icteric Mouth: Positive for: Moist Mucous Membranes Neck: Positive for: Normal Range of Motion, Trachea Midline Respiratory/Chest: Positive for: Good Air Exchange, Rales, Rhonchi. Negative for: Respiratory Distress, Accessory Muscle Use, Wheezes Cardiovascular: Positive for: Regular Rate and Rhythm, Normal S1, S2. Negative for: Murmurs Abdomen: Positive for: Normal Bowel Sounds. Negative for: Tenderness, Distention - Medications Active Medications: Active Medications Generic Name Dose Route Start Last Admin Trade Name Freq PRN Reason Stop Dose Admin Acetaminophen 650 mg 05/26/18 20:45 05/31/18 10:03 Tylenol 650mg/20.3ml Solution Ud PO 650 mg Q4 PRN Administration Temperature Acetylcysteine 2 ml 05/17/18 16:00 05/31/18 15:05 Mucomyst 10% 4ml IH 2 ml RQ8 KEN Administration Alendronate Sodium 70 mg 05/21/18 09:00 05/21/18 10:29 Fosamax PO 70 mg FR KEN Administration Artificial Tears 2 drop 05/17/18 22:00 05/31/18 16:22 Artificial Tears OU 2 drop Q6 KEN Administration Calcium Carbonate 500 mg 05/17/18 17:00 05/21/18 10:26 Oscal PO 500 mg BID KEN Administration Cholecalciferol 1,000 intlu 05/17/18 17:00 05/21/18 10:27 Vitamin D PO 1,000 intlu BID KEN Administration Dimethicone 1 applic 05/20/18 17:00 05/31/18 16:24 Proshield Plus Skin Protectant TOP 1 applic Q8 KEN Administration Donepezil HCl 5 mg 05/17/18 22:00 05/20/18 21:28 Aricept PO 5 mg HS KEN Administration Enoxaparin Sodium 40 mg 05/31/18 09:45 05/31/18 14:03 Lovenox SC 40 mg DAILY KEN Administration Protocol Meropenem 1 gm/ Sodium 100 mls @ 100 mls/hr 05/27/18 11:15 05/31/18 16:23 Chloride IVPB 100 mls/hr Q8 KEN Administration Protocol Fluconazole 50 mls @ 50 mls/hr 05/28/18 14:00 05/31/18 14:02 Diflucan Iv 100 Mg/50 Ml Ns IVPB 50 mls/hr DAILY@1400 K[facility] Administration Protocol Vancomycin HCl 750 mg/ Sodium 250 mls @ 166.667 mls/hr 05/30/18 09:00 05/31/18 09:06 Chloride IVPB 166.667 mls/hr Q12 KEN Administration Protocol Ipratropium [place] 0.5 mg 05/24/18 16:00 05/31/18 15:05 Atrovent IH 0.5 mg RQ8 [facility]EN Administration Memantine 5 mg 05/17/18 21:00 05/21/18 10:25 Namenda PO 5 mg Q12 [facility]EN Administration Metoprolol Tartrate 50 mg 05/28/18 09:00 05/31/18 09:04 Lopressor PO 50 mg Q12 KEN Administration Multivitamins/Minerals 1 tab 05/18/18 09:00 05/21/18 10:27 Therapeutic-M Tab PO 1 tab DAILY KEN Administration Nystatin 1 applic 05/20/18 10:30 05/31/18 17:43 Nystop Topical Powder TOP 1 applic Q8H [facility]EN Administration Pantoprazole Sodium 40 mg 05/24/18 10:30 05/31/18 09:05 Protonix Inj IVP 40 mg DAILY [facility] Administration Senna/Docusate Sodium 1 tab 05/17/18 22:00 05/20/18 21:29 Senokot S 50 Mg-8.6 Mg PO 1 tab HS KEN Administration Tamsulosin HCl 0.4 mg 05/17/18 18:00 05/20/18 17:19 Flomax PO 0.4 mg QPM KEN Administration Vitamin A 1 ea 05/16/18 17:45 05/31/18 16:24 Vitamin A & D Oint Ud Foilpak TOP 1 ea BID [facility]EN Administration - Patient Studies Lab Studies: Microbiology Studies 05/26/18 14:13 Blood Culture - Final Blood-Venous NO GROWTH AFTER 5 DAYS Gram Stain - Final TEST NOT PERFORMED 05/28/18 05:00 Bronchial Culture - Preliminary Bronchial Washings Yeast Species 05/27/18 21:05 Blood Culture - Preliminary Blood-Venous NO GROWTH AFTER 3 DAYS 05/27/18 21:00 Blood Culture - Preliminary Blood-Venous NO GROWTH AFTER 3 DAYS Lab Studies 05/31/18 05/31/18 05/31/18 Range/Units 16:31 12:00 05:54 WBC (4.8-10.8) K/uL RBC (4.40-5.90) Mil/uL Hgb (12.0-18.0) g/dL Hct (35.0-51.0) % MCV (80.0-94.0) fl MCH (27.0-31.0) pg MCHC (33.0-37.0) g/dL RDW (11.5-14.5) % Plt Count (130-400) K/uL pCO2 (35-45) mm/Hg pO2 (80-100) mm/Hg HCO3 (21-28) mmol/L ABG pH (7.35-7.45) ABG Total CO2 (22-28) mmol/L ABG O2 Saturation (95-98) % ABG Base Excess (-2.0-3.0) mmol/L Forrest Test ABG Potassium (3.6-5.2) mmol/L A-a O2 Difference mm/Hg Sodium (132-148) mmol/L Chloride (98-107) mmol/L Glucose (75-110) mg/dL Lactate (0.7-2.1) mmol/L Vent Mode Mechanical Rate FiO2 % Tidal Volume PEEP Potassium (3.6-5.0) MMOL/L Carbon Dioxide (22-30) mmol/L Anion Gap (10-20) BUN (9-20) mg/dl Creatinine (0.8-1.5) mg/dl Est GFR ( Amer) Est GFR (Non-Af Amer) POC Glucose (mg/dL) 209 H 136 H 156 H (65-110) mg/dL Random Glucose (75-110) mg/dL Calcium (8.4-10.2) mg/dL Arterial Blood Potassium (3.6-5.2) mmol/L 05/31/18 05/31/18 05/31/18 Range/Units 04:15 04:15 04:00 WBC 12.8 H (4.8-10.8) K/uL RBC 3.15 L (4.40-5.90) Mil/uL Hgb 8.3 L (12.0-18.0) g/dL Hct 26.0 L (35.0-51.0) % MCV 82.7 (80.0-94.0) fl MCH 26.3 L (27.0-31.0) pg MCHC 31.8 L (33.0-37.0) g/dL RDW 15.9 H (11.5-14.5) % Plt Count 216 (130-400) K/uL pCO2 40 (35-45) mm/Hg pO2 126 H (80-100) mm/Hg HCO3 34.7 H (21-28) mmol/L ABG pH 7.56 H (7.35-7.45) ABG Total CO2 37.0 H (22-28) mmol/L ABG O2 Saturation 99.7 H (95-98) % ABG Base Excess 12.5 H (-2.0-3.0) mmol/L Forrest Test Yes ABG Potassium 3.5 L (3.6-5.2) mmol/L A-a O2 Difference 181.0 mm/Hg Sodium 142 144.0 (132-148) mmol/L Chloride 103 111.0 H (98-107) mmol/L Glucose 152 H (75-110) mg/dL Lactate 1.6 (0.7-2.1) mmol/L Vent Mode A/c Mechanical Rate 14 FiO2 50.0 % Tidal Volume 500 PEEP 5 Potassium 3.8 (3.6-5.0) MMOL/L Carbon Dioxide 30 (22-30) mmol/L Anion Gap 13 (10-20) BUN 31 H (9-20) mg/dl Creatinine 0.5 L (0.8-1.5) mg/dl Est GFR ( Amer) > 60 Est GFR (Non-Af Amer) > 60 POC Glucose (mg/dL) (65-110) mg/dL Random Glucose 137 H (75-110) mg/dL Calcium 7.8 L (8.4-10.2) mg/dL Arterial Blood Potassium 3.5 L (3.6-5.2) mmol/L 05/31/18 05/31/18 05/30/18 Range/Units 03:26 01:56 22:31 WBC (4.8-10.8) K/uL RBC (4.40-5.90) Mil/uL Hgb (12.0-18.0) g/dL Hct (35.0-51.0) % MCV (80.0-94.0) fl MCH (27.0-31.0) pg MCHC (33.0-37.0) g/dL RDW (11.5-14.5) % Plt Count (130-400) K/uL pCO2 (35-45) mm/Hg pO2 (80-100) mm/Hg HCO3 (21-28) mmol/L ABG pH (7.35-7.45) ABG Total CO2 (22-28) mmol/L ABG O2 Saturation (95-98) % ABG Base Excess (-2.0-3.0) mmol/L Forrest Test ABG Potassium (3.6-5.2) mmol/L A-a O2 Difference mm/Hg Sodium (132-148) mmol/L Chloride (98-107) mmol/L Glucose (75-110) mg/dL Lactate (0.7-2.1) mmol/L Vent Mode Mechanical Rate FiO2 % Tidal Volume PEEP Potassium (3.6-5.0) MMOL/L Carbon Dioxide (22-30) mmol/L Anion Gap (10-20) BUN (9-20) mg/dl Creatinine (0.8-1.5) mg/dl Est GFR ( Amer) Est GFR (Non-Af Amer) POC Glucose (mg/dL) 134 H 141 H 162 H (65-110) mg/dL Random Glucose (75-110) mg/dL Calcium (8.4-10.2) mg/dL Arterial Blood Potassium (3.6-5.2) mmol/L 05/30/18 Range/Units 16:39 WBC (4.8-10.8) K/uL RBC (4.40-5.90) Mil/uL Hgb (12.0-18.0) g/dL Hct (35.0-51.0) % MCV (80.0-94.0) fl MCH (27.0-31.0) pg MCHC (33.0-37.0) g/dL RDW (11.5-14.5) % Plt Count (130-400) K/uL pCO2 (35-45) mm/Hg pO2 (80-100) mm/Hg HCO3 (21-28) mmol/L ABG pH (7.35-7.45) ABG Total CO2 (22-28) mmol/L ABG O2 Saturation (95-98) % ABG Base Excess (-2.0-3.0) mmol/L Forrest Test ABG Potassium (3.6-5.2) mmol/L A-a O2 Difference mm/Hg Sodium (132-148) mmol/L Chloride (98-107) mmol/L Glucose (75-110) mg/dL Lactate (0.7-2.1) mmol/L Vent Mode Mechanical Rate FiO2 % Tidal Volume PEEP Potassium (3.6-5.0) MMOL/L Carbon Dioxide (22-30) mmol/L Anion Gap (10-20) BUN (9-20) mg/dl Creatinine (0.8-1.5) mg/dl Est GFR ( Amer) Est GFR (Non-Af Amer) POC Glucose (mg/dL) 189 H (65-110) mg/dL Random Glucose (75-110) mg/dL Calcium (8.4-10.2) mg/dL Arterial Blood Potassium (3.6-5.2) mmol/L Laboratory Results - last 24 hr 05/30/18 05/30/18 05/31/18 16:39 22:31 01:56 WBC RBC Hgb Hct MCV MCH MCHC RDW Plt Count pCO2 pO2 HCO3 ABG pH ABG Total CO2 ABG O2 Saturation ABG Base Excess Forrest Test ABG Potassium A-a O2 Difference Sodium Chloride Glucose Lactate Vent Mode Mechanical Rate FiO2 Tidal Volume PEEP Potassium Carbon Dioxide Anion Gap BUN Creatinine Est GFR ( Amer) Est GFR (Non-Af Amer) POC Glucose (mg/dL) 189 H 162 H 141 H Random Glucose Calcium Arterial Blood Potassium 05/31/18 05/31/18 05/31/18 03:26 04:00 04:15 WBC 12.8 H RBC 3.15 L Hgb 8.3 L Hct 26.0 L MCV 82.7 MCH 26.3 L MCHC 31.8 L RDW 15.9 H Plt Count 216 pCO2 40 pO2 126 H HCO3 34.7 H ABG pH 7.56 H ABG Total CO2 37.0 H ABG O2 Saturation 99.7 H ABG Base Excess 12.5 H Forrest Test Yes ABG Potassium 3.5 L A-a O2 Difference 181.0 Sodium 144.0 Chloride 111.0 H Glucose 152 H Lactate 1.6 Vent Mode A/c Mechanical Rate 14 FiO2 50.0 Tidal Volume 500 PEEP 5 Potassium Carbon Dioxide Anion Gap BUN Creatinine Est GFR ( Amer) Est GFR (Non-Af Amer) POC Glucose (mg/dL) 134 H Random Glucose Calcium Arterial Blood Potassium 3.5 L 05/31/18 05/31/18 05/31/18 04:15 05:54 12:00 WBC RBC Hgb Hct MCV MCH MCHC RDW Plt Count pCO2 pO2 HCO3 ABG pH ABG Total CO2 ABG O2 Saturation ABG Base Excess Forrest Test ABG Potassium A-a O2 Difference Sodium 142 Chloride 103 Glucose Lactate Vent Mode Mechanical Rate FiO2 Tidal Volume PEEP Potassium 3.8 Carbon Dioxide 30 Anion Gap 13 BUN 31 H Creatinine 0.5 L Est GFR ( Amer) > 60 Est GFR (Non-Af Amer) > 60 POC Glucose (mg/dL) 156 H 136 H Random Glucose 137 H Calcium 7.8 L Arterial Blood Potassium 05/31/18 16:31 WBC RBC Hgb Hct MCV MCH MCHC RDW Plt Count pCO2 pO2 HCO3 ABG pH ABG Total CO2 ABG O2 Saturation ABG Base Excess Forrest Test ABG Potassium A-a O2 Difference Sodium Chloride Glucose Lactate Vent Mode Mechanical Rate FiO2 Tidal Volume PEEP Potassium Carbon Dioxide Anion Gap BUN Creatinine Est GFR ( Amer) Est GFR (Non-Af Amer) POC Glucose (mg/dL) 209 H Random Glucose Calcium Arterial Blood Potassium Radiology Impressions: Radiology Impressions Extremity Ultrasound 05/30/18 22:00 IMPRESSION: Right: No evidence of vein thrombosis of the right upper extremity with excellent venous flow. Normal valve function noted of the right side. Chest X-Ray 05/31/18 08:00 IMPRESSION: Stable right-sided infiltrates with diminished right basilar atelectasis. No pulmonary vascular congestion or acute left-sided pulmonary findings. Fingerstick Blood Sugar Results: 209 Review of Systems - Review of Systems Systems not reviewed;Unavailable: Intubated Critical Care Progress Note - Ventilator Checklist Head of Bed 30 Degrees: Yes Daily Sedation Vacation: Yes Daily Assessment of Readiness to Wean: Yes Daily Spontaneous Breathing Trial: Yes PUD Prophalyxis: Yes DVT Prophylaxis: Yes Oral Care with Chlorhexidine Gluconate {CHG}: Yes - Nutrition Nutrition: Nutrition Category Date Time Status NPO Diet [DIET] Diets 05/27/18 Dinner Active Assessment/Plan (1) Acute respiratory failure with hypoxia Current Visit: Yes Status: Acute Priority: High Comment: Vent weaning in progress, Off seations Aggressive pulmonary toilet, chest PT, suctioning (2) Severe sepsis Current Visit: Yes Status: Acute Priority: High Comment: Continue Antibiotics with IV Vancomycin, Diflucan and Meropenem (3) Aspiration pneumonia Current Visit: Yes Status: Acute Priority: High (4) Hyponatremia Current Visit: Yes Status: Resolved Priority: Medium (5) Atrial fibrillation with RVR Current Visit: Yes Status: Resolved (6) Dementia Current Visit: No Status: Chronic Priority: Medium
[2018-06-01] MEDS: Meropenem 1 GM in Sodium Chloride 0.9% 100 ML IVPB SCH ×3 (01:01→16:06)
[2018-06-01] MEDS: Proshield Plus GEL TOP SCH ×3 (01:02→16:07)
[2018-06-01] MEDS: Artificial Tears Opht Soln OU SCH ×4 (03:12→21:50)
[2018-06-01 05:05] LABS: ABG ALLEN TEST YES; ARTERIAL BLOOD GAS HCO3 36.7 mmol/L (21-28); ARTERIAL BLOOD GAS HEMOGLOBIN 8.3 g/dL (11.7-17.4); ARTERIAL BLOOD GAS O2 CAPACITY 11.5 mL/dL (16-24); ARTERIAL BLOOD GAS O2 CONTENT 11.6 ML/dL (15-23); ARTERIAL BLOOD GAS O2 SAT 100.9 % (95-98); ARTERIAL BLOOD GAS PCO2 42 mm/Hg (35-45); ARTERIAL BLOOD GAS PH 7.57 (7.35-7.45); ARTERIAL BLOOD GAS PO2 93 mm/Hg (80-100); ARTERIAL BLOOD GAS TCO2 39.8 mmol/L (22-28)
[2018-06-01 05:42] LABS: HEMOGLOBIN 8.3 g/dL (12.0-18.0); MEAN CELL VOLUME 82.4 fl (80.0-94.0); MEAN CORPUSCULAR HEMOGLOBIN 26.3 pg (27.0-31.0); MEAN CORPUSCULAR HGB CONC 31.9 g/dL (33.0-37.0); RBC 3.15 Mil/uL (4.40-5.90); RED CELL DISTRIBUTION WIDTH 15.6 % (11.5-14.5); WHITE BLOOD COUNT 11.2 K/uL (4.8-10.8)
[2018-06-01 05:58] LABS: BLOOD UREA NITROGEN 27 mg/dl (9-20); CALCIUM 8.1 mg/dL (8.4-10.2); GFR NON-AFRICAN AMERICAN > 60
[2018-06-01] MEDS: Acetylcysteine 10% 4 ML IH SCH ×4 (08:16→23:47)
[2018-06-01] MEDS: Ipratropium 0.02% Inhal Soln (0.5 mg/2.5 ml) UD IH SCH ×3 (08:17→23:47)
--- NOTE | 2018-06-01 08:33 | RAD ---
Date of service: 06/01/2018 HISTORY: intubated COMPARISON: Portable chest 05/31/2018. FINDINGS: LUNGS: Endotracheal and nasogastric tubes do not appear significantly changed in position. No significant change in right upper lobe infiltrate and limited right perihilar patchy density as well. No left-sided infiltrate. PLEURA: No significant pleural effusion identified, no pneumothorax apparent. CARDIOVASCULAR: Calcific atherosclerotic changes are seen related to the thoracic aorta. Normal cardiac size. No pulmonary vascular congestion. OSSEOUS STRUCTURES: No significant abnormalities. VISUALIZED UPPER ABDOMEN: Normal. OTHER FINDINGS: None. IMPRESSION: Stable infiltrates mid superior right lung zones with remaining lung capps clear.
[2018-06-01] MEDS: Enoxaparin 40 mg Syringe SC SCH (08:44)
--- NOTE | 2018-06-01 09:40 | CP.PCM.PN ---
Subjective - Date & Time of Evaluation Date of Evaluation: 06/01/18 Time of Evaluation: 09:40 - Subjective Subjective: ID note- Patient seen and examined today in ICU. remains intubated. Objective - Vital Signs/Intake and Output Vital Signs (last 24 hours): Temp Pulse Resp BP Pulse Ox 99.1 F 78 21 161/95 H 100 06/01/18 08:00 06/01/18 09:07 06/01/18 08:00 06/01/18 09:07 06/01/18 08:00 Intake and Output: 06/01/18 06/01/18 06:59 18:59 Intake Total 250 Output Total 1000 Balance -750 - Medications Medications: Current Medications Acetaminophen (Tylenol 650mg/20.3ml Solution Ud) 650 mg PO Q4 PRN PRN Reason: Temperature Last Admin: 05/31/18 10:03 Dose: 650 mg Acetylcysteine (Mucomyst 10% 4ml) 2 ml IH RQ8 [facility] Last Admin: 06/01/18 08:16 Dose: 2 ml Alendronate Sodium (Fosamax) 70 mg PO FR [facility] Last Admin: 05/21/18 10:29 Dose: 70 mg Artificial Tears (Artificial Tears) 2 drop OU Q6 [facility] Last Admin: 06/01/18 03:12 Dose: 2 drop Calcium Carbonate (Oscal) 500 mg PO BID [facility] Last Admin: 05/21/18 10:26 Dose: 500 mg Cholecalciferol (Vitamin D) 1,000 intlu PO BID [facility] Last Admin: 05/21/18 10:27 Dose: 1,000 intlu Dimethicone (Proshield Plus Skin Protectant) 1 applic TOP Q8 [facility] Last Admin: 06/01/18 08:45 Dose: 1 applic Donepezil HCl (Aricept) 5 mg PO HS [facility] Last Admin: 05/20/18 21:28 Dose: 5 mg Enoxaparin Sodium (Lovenox) 40 mg SC DAILY [facility]; Protocol Last Admin: 06/01/18 08:44 Dose: 40 mg Meropenem 1 gm/ Sodium (Chloride) 100 mls @ 100 mls/hr IVPB Q8 [facility]; Protocol Last Admin: 06/01/18 08:43 Dose: 100 mls/hr Fluconazole (Diflucan Iv 100 Mg/50 Ml Ns) 50 mls @ 50 mls/hr IVPB DAILY@1400 [facility]; Protocol Last Admin: 05/31/18 14:02 Dose: 50 mls/hr Vancomycin HCl 750 mg/ Sodium (Chloride) 250 mls @ 166.667 mls/hr IVPB Q12 [facility]; Protocol Last Admin: 06/01/18 08:40 Dose: 166.667 mls/hr Ipratropium [place] (Atrovent) 0.5 mg IH RQ8 [facility] Last Admin: 06/01/18 08:17 Dose: 0.5 mg Memantine (Namenda) 5 mg PO Q12 [facility] Last Admin: 05/21/18 10:25 Dose: 5 mg Metoprolol Tartrate (Lopressor) 50 mg PO Q12 [facility] Last Admin: 06/01/18 09:07 Dose: 50 mg Multivitamins/Minerals (Therapeutic-M Tab) 1 tab PO DAILY [facility] Last Admin: 05/21/18 10:27 Dose: 1 tab Nystatin (Nystop Topical Powder) 1 applic TOP Q8H [facility] Last Admin: 06/01/18 03:10 Dose: 1 applic Pantoprazole Sodium (Protonix Inj) 40 mg IVP DAILY [facility] Last Admin: 06/01/18 08:45 Dose: 40 mg Senna/Docusate Sodium (Senokot S 50 Mg-8.6 Mg) 1 tab PO HS [facility] Last Admin: 05/20/18 21:29 Dose: 1 tab Tamsulosin HCl (Flomax) 0.4 mg PO QPM [facility] Last Admin: 05/20/18 17:19 Dose: 0.4 mg Vitamin A (Vitamin A & D Oint Ud Foilpak) 1 ea TOP BID [facility] Last Admin: 05/31/18 16:24 Dose: 1 ea - Labs Labs: - Additional Findings Additional findings: - Constitutional Appears: Chronically Ill - ENT Exam Additional comments: ET tube in place - Respiratory Exam Additional comments: decreased breath sounds on the right side - Cardiovascular Exam Cardiovascular Exam: Tachycardia, +S1, +S2 - GI/Abdominal Exam GI & Abdominal Exam: Soft, Normal Bowel Sounds Additional comments: ND, NT - Extremities Exam Extremities Exam: Normal Inspection - Neurological Exam Additional comments: Intubated and lethargic Laboratory Results - last 72 hr 05/29/18 05/30/18 05/30/18 20:51 04:51 05:00 WBC 15.8 H RBC 3.54 L Hgb 9.3 L Hct 29.3 L MCV 82.8 MCH 26.3 L MCHC 31.7 L RDW 15.5 H Plt Count 227 pCO2 39 pO2 69 L HCO3 34.8 H ABG pH 7.57 H ABG Total CO2 36.9 H ABG O2 Saturation 98.8 H ABG O2 Content 12.0 L ABG Base Excess 12.6 H ABG Hemoglobin 8.8 L ABG Carboxyhemoglobin 2.0 H POC ABG HHb (Measured) 1.2 ABG Methemoglobin 0.8 ABG O2 Capacity 12.1 L Forrest Test Yes ABG Potassium A-a O2 Difference 239.0 Hgb O2 Saturation 96.1 Glucose Lactate Vent Mode A/c Mechanical Rate 14 FiO2 50.0 Tidal Volume 500 PEEP 5 Sodium Potassium Chloride Carbon Dioxide Anion Gap BUN Creatinine Est GFR ( Amer) Est GFR (Non-Af Amer) POC Glucose (mg/dL) 151 H Random Glucose Calcium Total Bilirubin AST ALT Alkaline Phosphatase Total Protein Albumin Globulin Albumin/Globulin Ratio Arterial Blood Potassium 05/30/18 05/30/18 05/30/18 05:00 05:24 11:13 WBC RBC Hgb Hct MCV MCH MCHC RDW Plt Count pCO2 pO2 HCO3 ABG pH ABG Total CO2 ABG O2 Saturation ABG O2 Content ABG Base Excess ABG Hemoglobin ABG Carboxyhemoglobin POC ABG HHb (Measured) ABG Methemoglobin ABG O2 Capacity Forrest Test ABG Potassium A-a O2 Difference Hgb O2 Saturation Glucose Lactate Vent Mode Mechanical Rate FiO2 Tidal Volume PEEP Sodium 146 Potassium 3.8 Chloride 105 Carbon Dioxide 33 H Anion Gap 12 BUN 37 H Creatinine 0.7 L Est GFR ( Amer) > 60 Est GFR (Non-Af Amer) > 60 POC Glucose (mg/dL) 161 H 192 H Random Glucose 172 H Calcium 8.5 Total Bilirubin 0.6 AST 44 ALT 41 Alkaline Phosphatase 103 Total Protein 5.8 L Albumin 2.4 L Globulin 3.4 Albumin/Globulin Ratio 0.7 L Arterial Blood Potassium 05/30/18 05/30/18 05/31/18 16:39 22:31 01:56 WBC RBC Hgb Hct MCV MCH MCHC RDW Plt Count pCO2 pO2 HCO3 ABG pH ABG Total CO2 ABG O2 Saturation ABG O2 Content ABG Base Excess ABG Hemoglobin ABG Carboxyhemoglobin POC ABG HHb (Measured) ABG Methemoglobin ABG O2 Capacity Forrest Test ABG Potassium A-a O2 Difference Hgb O2 Saturation Glucose Lactate Vent Mode Mechanical Rate FiO2 Tidal Volume PEEP Sodium Potassium Chloride Carbon Dioxide Anion Gap BUN Creatinine Est GFR ( Amer) Est GFR (Non-Af Amer) POC Glucose (mg/dL) 189 H 162 H 141 H Random Glucose Calcium Total Bilirubin AST ALT Alkaline Phosphatase Total Protein Albumin Globulin Albumin/Globulin Ratio Arterial Blood Potassium 05/31/18 05/31/18 05/31/18 03:26 04:00 04:15 WBC 12.8 H RBC 3.15 L Hgb 8.3 L Hct 26.0 L MCV 82.7 MCH 26.3 L MCHC 31.8 L RDW 15.9 H Plt Count 216 pCO2 40 pO2 126 H HCO3 34.7 H ABG pH 7.56 H ABG Total CO2 37.0 H ABG O2 Saturation 99.7 H ABG O2 Content ABG Base Excess 12.5 H ABG Hemoglobin ABG Carboxyhemoglobin POC ABG HHb (Measured) ABG Methemoglobin ABG O2 Capacity Forrest Test Yes ABG Potassium 3.5 L A-a O2 Difference 181.0 Hgb O2 Saturation Glucose 152 H Lactate 1.6 Vent Mode A/c Mechanical Rate 14 FiO2 50.0 Tidal Volume 500 PEEP 5 Sodium 144.0 Potassium Chloride 111.0 H Carbon Dioxide Anion Gap BUN Creatinine Est GFR ( Amer) Est GFR (Non-Af Amer) POC Glucose (mg/dL) 134 H Random Glucose Calcium Total Bilirubin AST ALT Alkaline Phosphatase Total Protein Albumin Globulin Albumin/Globulin Ratio Arterial Blood Potassium 3.5 L 05/31/18 05/31/18 05/31/18 04:15 05:54 12:00 WBC RBC Hgb Hct MCV MCH MCHC RDW Plt Count pCO2 pO2 HCO3 ABG pH ABG Total CO2 ABG O2 Saturation ABG O2 Content ABG Base Excess ABG Hemoglobin ABG Carboxyhemoglobin POC ABG HHb (Measured) ABG Methemoglobin ABG O2 Capacity Forrest Test ABG Potassium A-a O2 Difference Hgb O2 Saturation Glucose Lactate Vent Mode Mechanical Rate FiO2 Tidal Volume PEEP Sodium 142 Potassium 3.8 Chloride 103 Carbon Dioxide 30 Anion Gap 13 BUN 31 H Creatinine 0.5 L Est GFR ( Amer) > 60 Est GFR (Non-Af Amer) > 60 POC Glucose (mg/dL) 156 H 136 H Random Glucose 137 H Calcium 7.8 L Total Bilirubin AST ALT Alkaline Phosphatase Total Protein Albumin Globulin Albumin/Globulin Ratio Arterial Blood Potassium 05/31/18 05/31/18 06/01/18 16:31 21:10 05:00 WBC 11.2 H RBC 3.15 L Hgb 8.3 L Hct 25.9 L MCV 82.4 MCH 26.3 L MCHC 31.9 L RDW 15.6 H Plt Count 228 pCO2 pO2 HCO3 ABG pH ABG Total CO2 ABG O2 Saturation ABG O2 Content ABG Base Excess ABG Hemoglobin ABG Carboxyhemoglobin POC ABG HHb (Measured) ABG Methemoglobin ABG O2 Capacity Forrest Test ABG Potassium A-a O2 Difference Hgb O2 Saturation Glucose Lactate Vent Mode Mechanical Rate FiO2 Tidal Volume PEEP Sodium Potassium Chloride Carbon Dioxide Anion Gap BUN Creatinine Est GFR ( Amer) Est GFR (Non-Af Amer) POC Glucose (mg/dL) 209 H 167 H Random Glucose Calcium Total Bilirubin AST ALT Alkaline Phosphatase Total Protein Albumin Globulin Albumin/Globulin Ratio Arterial Blood Potassium 06/01/18 06/01/18 06/01/18 05:00 05:00 07:12 WBC RBC Hgb Hct MCV MCH MCHC RDW Plt Count pCO2 42 pO2 93 HCO3 36.7 H ABG pH 7.57 H ABG Total CO2 39.8 H ABG O2 Saturation 100.9 H ABG O2 Content 11.6 L ABG Base Excess 15.0 H ABG Hemoglobin 8.3 L ABG Carboxyhemoglobin 1.9 H POC ABG HHb (Measured) -0.9 L ABG Methemoglobin 1.3 ABG O2 Capacity 11.5 L Forrest Test Yes ABG Potassium A-a O2 Difference 211.0 Hgb O2 Saturation 97.7 Glucose Lactate Vent Mode A/c Mechanical Rate 14 FiO2 50.0 Tidal Volume 500 PEEP 5 Sodium 142 Potassium 3.9 Chloride 104 Carbon Dioxide 33 H Anion Gap 9 L BUN 27 H Creatinine 0.6 L Est GFR ( Amer) > 60 Est GFR (Non-Af Amer) > 60 POC Glucose (mg/dL) 134 H Random Glucose 142 H Calcium 8.1 L Total Bilirubin AST ALT Alkaline Phosphatase Total Protein Albumin Globulin Albumin/Globulin Ratio Arterial Blood Potassium 06/01/18 11:27 WBC RBC Hgb Hct MCV MCH MCHC RDW Plt Count pCO2 pO2 HCO3 ABG pH ABG Total CO2 ABG O2 Saturation ABG O2 Content ABG Base Excess ABG Hemoglobin ABG Carboxyhemoglobin POC ABG HHb (Measured) ABG Methemoglobin ABG O2 Capacity Forrest Test ABG Potassium A-a O2 Difference Hgb O2 Saturation Glucose Lactate Vent Mode Mechanical Rate FiO2 Tidal Volume PEEP Sodium Potassium Chloride Carbon Dioxide Anion Gap BUN Creatinine Est GFR ( Amer) Est GFR (Non-Af Amer) POC Glucose (mg/dL) 135 H Random Glucose Calcium Total Bilirubin AST ALT Alkaline Phosphatase Total Protein Albumin Globulin Albumin/Globulin Ratio Arterial Blood Potassium Microbiology 05/31/18 12:44 Blood-Venous Blood Culture - Preliminary NO GROWTH AFTER 24 HOURS 05/31/18 12:34 Blood-Venous Blood Culture - Preliminary NO GROWTH AFTER 24 HOURS 05/27/18 21:00 Blood-Venous Blood Culture - Preliminary NO GROWTH AFTER 4 DAYS 05/27/18 21:05 Blood-Venous Blood Culture - Preliminary NO GROWTH AFTER 4 DAYS 05/26/18 14:13 Blood-Venous Blood Culture - Final NO GROWTH AFTER 5 DAYS 05/26/18 14:13 Blood-Venous Gram Stain - Final TEST NOT PERFORMED 05/28/18 05:00 Bronchial Washings Bronchial Culture - Preliminary Yeast Species 05/27/18 21:00 Trachasp Gram Stain - Final 05/27/18 21:00 Trachasp Sputum Culture - Final Yeast Species 05/24/18 14:15 Blood-Venous Blood Culture - Final NO GROWTH AFTER 5 DAYS 05/24/18 14:15 Blood-Venous Gram Stain - Final TEST NOT PERFORMED 05/24/18 14:00 Blood-Venous Blood Culture - Final NO GROWTH AFTER 5 DAYS 05/24/18 14:00 Blood-Venous Gram Stain - Final TEST NOT PERFORMED 05/27/18 21:00 Urine,Catheterized Urine Culture - Final No Growth (<1,000 CFU/ML) 05/24/18 15:00 Sputum Gram Stain - Final 05/24/18 15:00 Sputum Sputum Culture - Final Yeast Species 05/24/18 09:35 Urine,Catheterized Urine Culture - Final No Growth (<1,000 CFU/ML) 05/20/18 15:31 Blood-Venous Blood Culture - Final NO GROWTH AFTER 5 DAYS 05/20/18 15:31 Blood-Venous Gram Stain - Final TEST NOT PERFORMED 05/20/18 15:42 Blood-Venous Blood Culture - Final NO GROWTH AFTER 5 DAYS 05/20/18 15:42 Blood-Venous Gram Stain - Final TEST NOT PERFORMED 05/24/18 09:35 Naris MRSA Culture (Admit) - Final MRSA NOT DETECTED 05/21/18 16:57 Sputum Induced Gram Stain - Final 05/21/18 16:57 Sputum Induced Sputum Culture - Final Yeast Species 05/12/18 07:50 Blood Blood Culture - Final NO GROWTH AFTER 5 DAYS 05/12/18 07:50 Blood Gram Stain - Final TEST NOT PERFORMED 05/12/18 Unknown Blood Blood Culture - Final NO GROWTH AFTER 5 DAYS 05/12/18 Unknown Blood Gram Stain - Final TEST NOT PERFORMED 05/12/18 08:40 Urine,Catheterized Urine Culture - Final Escherichia Coli Assessment and Plan (1) Sepsis syndrome Status: Acute (2) Fever Status: Resolved (3) Hypoxemia Status: Chronic - Assessment and Plan (Free Text) Assessment: A/P- 82 year old [place] resident male with dementia, admitted with fever initially and had UTI and ? asp pneumonia and was treated with IV antibiotiocs and was fever free and normal wbc and doing ok but few days ago had aspiration pneumonia and hypoxemic and rapid a.fib and is s/p intubation and in ICU. remains intubated and lethargic. leukocytosis much improved today. only one episode of low grade fever at midnight. cxr- right side infiltrates but improved compared to before. admission UA- Pos LE, neg Nitrates admission urine cx- E.Coli pansensitive- treated for this already blood cx- neg x 5 sputum cx- yeast BAL cx- yeast PLan- advise to continue with IV meropenem and clindamycin for added anaerobic coverage.day #8 also advise to continue with IV fluconazole for yeast in sputum.day #6 continue with vanco for extra coverage for pneumonitis day #6. keep trough <15. all labs and imaging and chart notes reviewed. critical care time spent 30 minutes.
--- NOTE | 2018-06-01 09:50 | CP.PCM.PN ---
Subjective - Date & Time of Evaluation Date of Evaluation: 06/01/18 Time of Evaluation: 09:49 - Subjective Subjective: no overnight events Objective - Vital Signs/Intake and Output Vital Signs (last 24 hours): Temp Pulse Resp BP Pulse Ox 99.1 F 78 21 161/95 H 100 06/01/18 08:00 06/01/18 09:07 06/01/18 08:00 06/01/18 09:07 06/01/18 08:00 Intake and Output: 06/01/18 06/01/18 06:59 18:59 Intake Total 250 Output Total 1000 Balance -750 - Medications Medications: Current Medications Acetaminophen (Tylenol 650mg/20.3ml Solution Ud) 650 mg PO Q4 PRN PRN Reason: Temperature Last Admin: 05/31/18 10:03 Dose: 650 mg Acetylcysteine (Mucomyst 10% 4ml) 2 ml IH RQ8 [facility] Last Admin: 06/01/18 08:16 Dose: 2 ml Alendronate Sodium (Fosamax) 70 mg PO FR [facility] Last Admin: 05/21/18 10:29 Dose: 70 mg Artificial Tears (Artificial Tears) 2 drop OU Q6 [facility] Last Admin: 06/01/18 03:12 Dose: 2 drop Calcium Carbonate (Oscal) 500 mg PO BID [facility] Last Admin: 05/21/18 10:26 Dose: 500 mg Cholecalciferol (Vitamin D) 1,000 intlu PO BID [facility] Last Admin: 05/21/18 10:27 Dose: 1,000 intlu Dimethicone (Proshield Plus Skin Protectant) 1 applic TOP Q8 [facility] Last Admin: 06/01/18 08:45 Dose: 1 applic Donepezil HCl (Aricept) 5 mg PO HS [facility] Last Admin: 05/20/18 21:28 Dose: 5 mg Enoxaparin Sodium (Lovenox) 40 mg SC DAILY [facility]; Protocol Last Admin: 06/01/18 08:44 Dose: 40 mg Meropenem 1 gm/ Sodium (Chloride) 100 mls @ 100 mls/hr IVPB Q8 [facility]; Protocol Last Admin: 06/01/18 08:43 Dose: 100 mls/hr Fluconazole (Diflucan Iv 100 Mg/50 Ml Ns) 50 mls @ 50 mls/hr IVPB DAILY@1400 [facility]; Protocol Last Admin: 05/31/18 14:02 Dose: 50 mls/hr Vancomycin HCl 750 mg/ Sodium (Chloride) 250 mls @ 166.667 mls/hr IVPB Q12 [facility]; Protocol Last Admin: 06/01/18 08:40 Dose: 166.667 mls/hr Ipratropium [place] (Atrovent) 0.5 mg IH RQ8 [facility] Last Admin: 06/01/18 08:17 Dose: 0.5 mg Memantine (Namenda) 5 mg PO Q12 [facility] Last Admin: 05/21/18 10:25 Dose: 5 mg Metoprolol Tartrate (Lopressor) 50 mg PO Q12 [facility] Last Admin: 06/01/18 09:07 Dose: 50 mg Multivitamins/Minerals (Therapeutic-M Tab) 1 tab PO DAILY [facility] Last Admin: 05/21/18 10:27 Dose: 1 tab Nystatin (Nystop Topical Powder) 1 applic TOP Q8H [facility] Last Admin: 06/01/18 03:10 Dose: 1 applic Pantoprazole Sodium (Protonix Inj) 40 mg IVP DAILY [facility] Last Admin: 06/01/18 08:45 Dose: 40 mg Senna/Docusate Sodium (Senokot S 50 Mg-8.6 Mg) 1 tab PO HS [facility] Last Admin: 05/20/18 21:29 Dose: 1 tab Tamsulosin HCl (Flomax) 0.4 mg PO QPM [facility] Last Admin: 05/20/18 17:19 Dose: 0.4 mg Vitamin A (Vitamin A & D Oint Ud Foilpak) 1 ea TOP BID [facility] Last Admin: 05/31/18 16:24 Dose: 1 ea - Labs Labs: 06/01/18 05:00 06/01/18 05:00 PT 15.7 Seconds (9.8-13.1) H 05/12/18 07:50 INR 1.4 05/12/18 07:50 APTT 34.4 Seconds (25.6-37.1) 05/12/18 07:50 - Head Exam Head Exam: NORMOCEPHALIC - Neck Exam Neck Exam: Normal Inspection - Respiratory Exam Respiratory Exam: Rhonchi, NORMAL BREATHING PATTERN - Cardiovascular Exam Cardiovascular Exam: REGULAR RHYTHM - GI/Abdominal Exam GI & Abdominal Exam: Soft, Normal Bowel Sounds Assessment and Plan - Assessment and Plan (Free Text) Assessment: 82 yo male with sepsis and dysphagia cont tube feeds to consider PEG once clinically stable
[2018-06-01] MEDS: Vitamins A & D Oint UD Foilpak TOP SCH ×2 (10:22→16:07)
--- NOTE | 2018-06-01 13:38 | CP.PCM.PN ---
Subjective - Date & Time of Evaluation Date of Evaluation: 06/01/18 Time of Evaluation: 10:40 - Subjective Subjective: F/U Respiratory Failure. On CPAP PS FIO2 50% since AM today, lethargic. Objective - Vital Signs/Intake and Output Vital Signs (last 24 hours): Temp Pulse Resp BP Pulse Ox 99.3 F 62 22 151/69 H 98 06/01/18 12:00 06/01/18 12:00 06/01/18 12:00 06/01/18 12:00 06/01/18 12:00 Intake and Output: 06/01/18 06/01/18 06:59 18:59 Intake Total 250 910 Output Total 1000 Balance -750 910 - Medications Medications: Current Medications Acetaminophen (Tylenol 650mg/20.3ml Solution Ud) 650 mg PO Q4 PRN PRN Reason: Temperature Last Admin: 05/31/18 10:03 Dose: 650 mg Acetylcysteine (Mucomyst 10% 4ml) 2 ml IH RQ8 [facility] Last Admin: 06/01/18 08:16 Dose: 2 ml Alendronate Sodium (Fosamax) 70 mg PO FR [facility] Last Admin: 05/21/18 10:29 Dose: 70 mg Artificial Tears (Artificial Tears) 2 drop OU Q6 [facility] Last Admin: 06/01/18 09:45 Dose: 2 drop Calcium Carbonate (Oscal) 500 mg PO BID [facility] Last Admin: 05/21/18 10:26 Dose: 500 mg Cholecalciferol (Vitamin D) 1,000 intlu PO BID [facility] Last Admin: 05/21/18 10:27 Dose: 1,000 intlu Dimethicone (Proshield Plus Skin Protectant) 1 applic TOP Q8 [facility] Last Admin: 06/01/18 08:45 Dose: 1 applic Donepezil HCl (Aricept) 5 mg PO HS [facility] Last Admin: 05/20/18 21:28 Dose: 5 mg Enoxaparin Sodium (Lovenox) 40 mg SC DAILY [facility]; Protocol Last Admin: 06/01/18 08:44 Dose: 40 mg Meropenem 1 gm/ Sodium (Chloride) 100 mls @ 100 mls/hr IVPB Q8 [facility]; Protocol Last Admin: 06/01/18 08:43 Dose: 100 mls/hr Fluconazole (Diflucan Iv 100 Mg/50 Ml Ns) 50 mls @ 50 mls/hr IVPB DAILY@1400 [facility]; Protocol Last Admin: 05/31/18 14:02 Dose: 50 mls/hr Vancomycin HCl 750 mg/ Sodium (Chloride) 250 mls @ 166.667 mls/hr IVPB Q12 [facility]; Protocol Last Admin: 06/01/18 08:40 Dose: 166.667 mls/hr Ipratropium [place] (Atrovent) 0.5 mg IH RQ8 [facility] Last Admin: 06/01/18 08:17 Dose: 0.5 mg Memantine (Namenda) 5 mg PO Q12 [facility] Last Admin: 05/21/18 10:25 Dose: 5 mg Metoprolol Tartrate (Lopressor) 50 mg PO Q12 [facility] Last Admin: 06/01/18 09:07 Dose: 50 mg Multivitamins/Minerals (Therapeutic-M Tab) 1 tab PO DAILY [facility] Last Admin: 05/21/18 10:27 Dose: 1 tab Nystatin (Nystop Topical Powder) 1 applic TOP Q8H [facility] Last Admin: 06/01/18 09:30 Dose: 1 applic Pantoprazole Sodium (Protonix Inj) 40 mg IVP DAILY [facility] Last Admin: 06/01/18 08:45 Dose: 40 mg Senna/Docusate Sodium (Senokot S 50 Mg-8.6 Mg) 1 tab PO HS [facility] Last Admin: 05/20/18 21:29 Dose: 1 tab Tamsulosin HCl (Flomax) 0.4 mg PO QPM [facility] Last Admin: 05/20/18 17:19 Dose: 0.4 mg Vitamin A (Vitamin A & D Oint Ud Foilpak) 1 ea TOP BID [facility] Last Admin: 06/01/18 10:22 Dose: 1 ea - Labs Labs: 06/01/18 05:00 06/01/18 05:00 PT 15.7 Seconds (9.8-13.1) H 05/12/18 07:50 INR 1.4 05/12/18 07:50 APTT 34.4 Seconds (25.6-37.1) 05/12/18 07:50 - Constitutional Appears: Chronically Ill - Head Exam Head Exam: NORMAL INSPECTION - Eye Exam Eye Exam: PERRL - ENT Exam Additional comments: Intubated, OGT - Neck Exam Neck Exam: Normal Inspection - Respiratory Exam Respiratory Exam: Decreased Breath Sounds (at bases), Rhonchi (scattered) - Cardiovascular Exam Cardiovascular Exam: REGULAR RHYTHM - GI/Abdominal Exam GI & Abdominal Exam: Soft, Normal Bowel Sounds - Extremities Exam Additional comments: Edema on all extremities. - Back Exam Additional comments: Sacral ulcer - Neurological Exam Additional comments: Intubated, lethargic, minimal response to tactile stimuli. - Skin Skin Exam: Warm Assessment and Plan (1) Respiratory failure Status: Acute (2) Aspiration pneumonia Status: Acute (3) E. coli UTI Status: Acute (4) Fever Status: Resolved (5) Sepsis syndrome Status: Acute (6) Hypoxemia Status: Chronic (7) Esophageal dilatation Status: Chronic (8) Dementia Status: Chronic (9) HTN (hypertension) Status: Chronic (10) DMII (diabetes mellitus, type 2) Status: Chronic - Assessment and Plan (Free Text) Plan: CXR today; Stable infiltrate mid inferior R lung. Continue respiratory support, Vanco, Namenda and rest of Tx. Critical care time: 32 min.
[2018-06-01] MEDS: Fluconazole IV 100mg/50 ml NS 50 ML IVPB SCH (14:22)
--- NOTE | 2018-06-01 19:58 | CP.CCUPN ---
CCU Subjective - Physician Review Subjective (Free Text): 06/01/18 19:57 The patient was Seen/interviewed and examined by me at the bedside during ICU round, Medical records reviewed and Management issues were discussed and formulated with the house staff. Events reviewed Patient is a 81 years old male with past medical history of hypertension, diabetes and dementia who initially presented to the emergency room by EMS from correction for evaluation of fever and sepsis He was transferred to the intensive care unit on May 24 after [employer] was called due to hypoxemia with hypotension, at that time his blood pressure was 96/50, HR 93 RR 22 and oxygen saturation was 82% He was transferred to the intensive care unit and required intubation and mechanical ventilation Currently he is managed in the ICU for acute hypoxemic respiratory failure secondary to bilateral pneumonia, severe sepsis/septic shock due to E. coli urinary tract infection This morning the patient is totally of all sedation but he still not following command, lethargic, non verbal He was placed on CPAP trial at 8AM and tolerating so far CCU Objective - Vital Signs / Intake & Output Vital Signs (Last 4 hours): Vital Signs Temp Pulse Resp BP Pulse Ox 06/01/18 18:00 68 20 172/76 H 99 06/01/18 16:00 99.5 F 70 13 152/72 H 98 Intake and Output (Last 8hrs): Intake & Output 06/01/18 06/01/18 06/01/18 06:59 14:59 22:59 Intake Total 0 960 540 Output Total 1000 1300 Balance -1000 960 -760 Weight 172 lb 1.6 oz Intake: Intake, Piggyback 400 100 Tube Feeding 360 240 Blood Product 0 Albumin 0 Free Water Flush 200 200 Output: Urine 1000 1300 Urethral (Cerrato) 1000 1300 - Physical Exam Head: Positive for: Atraumatic, Normocephalic Pupils: Positive for: PERRL Extroacular Muscles: Positive for: EOMI Conjunctiva: Positive for: Normal. Negative for: Injected, Icteric Mouth: Positive for: Moist Mucous Membranes Neck: Positive for: Normal Range of Motion, Trachea Midline Respiratory/Chest: Positive for: Good Air Exchange, Rales, Rhonchi. Negative for: Respiratory Distress, Accessory Muscle Use, Wheezes Cardiovascular: Positive for: Regular Rate and Rhythm, Normal S1, S2. Negative for: Murmurs Abdomen: Positive for: Normal Bowel Sounds. Negative for: Tenderness, Distentio n - Medications Active Medications: Active Medications Generic Name Dose Route Start Last Admin Trade Name Freq PRN Reason Stop Dose Admin Acetaminophen 650 mg 05/26/18 20:45 05/31/18 10:03 Tylenol 650mg/20.3ml Solution Ud PO 650 mg Q4 PRN Administration Temperature Acetylcysteine 2 ml 05/17/18 16:00 06/01/18 15:51 Mucomyst 10% 4ml IH 2 ml RQ8 KEN Administration Alendronate Sodium 70 mg 05/21/18 09:00 05/21/18 10:29 Fosamax PO 70 mg FR KEN Administration Artificial Tears 2 drop 05/17/18 22:00 06/01/18 16:08 Artificial Tears OU 2 drop Q6 KEN Administration Calcium Carbonate 500 mg 05/17/18 17:00 05/21/18 10:26 Oscal PO 500 mg BID KEN Administration Cholecalciferol 1,000 intlu 05/17/18 17:00 05/21/18 10:27 Vitamin D PO 1,000 intlu BID KEN Administration Dimethicone 1 applic 05/20/18 17:00 06/01/18 16:07 Proshield Plus Skin Protectant TOP 1 applic Q8 KEN Administration Donepezil HCl 5 mg 05/17/18 22:00 05/20/18 21:28 Aricept PO 5 mg HS KEN Administration Enoxaparin Sodium 40 mg 05/31/18 09:45 06/01/18 08:44 Lovenox SC 40 mg DAILY KEN Administration Protocol Meropenem 1 gm/ Sodium 100 mls @ 100 mls/hr 05/27/18 11:15 06/01/18 16:06 Chloride IVPB 100 mls/hr Q8 KEN Administration Protocol Fluconazole 50 mls @ 50 mls/hr 05/28/18 14:00 06/01/18 14:22 Diflucan Iv 100 Mg/50 Ml Ns IVPB 50 mls/hr DAILY@1400 KEN Administration Protocol Vancomycin HCl 750 mg/ Sodium 250 mls @ 166.667 mls/hr 05/30/18 09:00 06/01/18 08:40 Chloride IVPB 166.667 mls/hr Q12 KEN Administration Protocol Ipratropium [place] 0.5 mg 05/24/18 16:00 06/01/18 15:50 Atrovent IH 0.5 mg RQ8 KEN Administration Memantine 5 mg 05/17/18 21:00 05/21/18 10:25 Namenda PO 5 mg Q12 KEN Administration Metoprolol Tartrate 50 mg 05/28/18 09:00 06/01/18 09:07 Lopressor PO 50 mg Q12 KEN Administration Multivitamins/Minerals 1 tab 05/18/18 09:00 05/21/18 10:27 Therapeutic-M Tab PO 1 tab DAILY KEN Administration Nystatin 1 applic 05/20/18 10:30 06/01/18 18:00 Nystop Topical Powder TOP 1 applic Q8H KEN Administration Pantoprazole Sodium 40 mg 05/24/18 10:30 06/01/18 08:45 Protonix Inj IVP 40 mg DAILY KEN Administration Senna/Docusate Sodium 1 tab 05/17/18 22:00 05/20/18 21:29 Senokot S 50 Mg-8.6 Mg PO 1 tab HS KEN Administration Tamsulosin HCl 0.4 mg 05/17/18 18:00 05/20/18 17:19 Flomax PO 0.4 mg QPM KEN Administration Vitamin A 1 ea 05/16/18 17:45 06/01/18 16:07 Vitamin A & D Oint Ud Foilpak TOP 1 ea BID KEN Administration - Patient Studies Lab Studies: Microbiology Studies 05/31/18 12:44 Blood Culture - Preliminary Blood-Venous NO GROWTH AFTER 24 HOURS 05/31/18 12:34 Blood Culture - Preliminary Blood-Venous NO GROWTH AFTER 24 HOURS 05/27/18 21:00 Blood Culture - Preliminary Blood-Venous NO GROWTH AFTER 4 DAYS 05/27/18 21:05 Blood Culture - Preliminary Blood-Venous NO GROWTH AFTER 4 DAYS 05/26/18 14:13 Blood Culture - Final Blood-Venous NO GROWTH AFTER 5 DAYS Gram Stain - Final TEST NOT PERFORMED Lab Studies 06/01/18 06/01/18 06/01/18 Range/Units 11:27 07:12 05:00 WBC (4.8-10.8) K/uL RBC (4.40-5.90) Mil/uL Hgb (12.0-18.0) g/dL Hct (35.0-51.0) % MCV (80.0-94.0) fl MCH (27.0-31.0) pg MCHC (33.0-37.0) g/dL RDW (11.5-14.5) % Plt Count (130-400) K/uL pCO2 42 (35-45) mm/Hg pO2 93 (80-100) mm/Hg HCO3 36.7 H (21-28) mmol/L ABG pH 7.57 H (7.35-7.45) ABG Total CO2 39.8 H (22-28) mmol/L ABG O2 Saturation 100.9 H (95-98) % ABG O2 Content 11.6 L (15-23) ML/dL ABG Base Excess 15.0 H (-2.0-3.0) mmol/L ABG Hemoglobin 8.3 L (11.7-17.4) g/dL ABG Carboxyhemoglobin 1.9 H (0.5-1.5) % POC ABG HHb (Measured) -0.9 L (0.0-5.0) % ABG Methemoglobin 1.3 (0.0-3.0) % ABG O2 Capacity 11.5 L (16-24) mL/dL Forrest Test Yes A-a O2 Difference 211.0 mm/Hg Hgb O2 Saturation 97.7 (95.0-98.0) % Vent Mode A/c Mechanical Rate 14 FiO2 50.0 % Tidal Volume 500 PEEP 5 Sodium (132-148) mmol/l Potassium (3.6-5.0) MMOL/L Chloride (98-107) mmol/L Carbon Dioxide (22-30) mmol/L Anion Gap (10-20) BUN (9-20) mg/dl Creatinine (0.8-1.5) mg/dl Est GFR ( Amer) Est GFR (Non-Af Amer) POC Glucose (mg/dL) 135 H 134 H (65-110) mg/dL Random Glucose (75-110) mg/dL Calcium (8.4-10.2) mg/dL 06/01/18 06/01/18 05/31/18 Range/Units 05:00 05:00 21:10 WBC 11.2 H (4.8-10.8) K/uL RBC 3.15 L (4.40-5.90) Mil/uL Hgb 8.3 L (12.0-18.0) g/dL Hct 25.9 L (35.0-51.0) % MCV 82.4 (80.0-94.0) fl MCH 26.3 L (27.0-31.0) pg MCHC 31.9 L (33.0-37.0) g/dL RDW 15.6 H (11.5-14.5) % Plt Count 228 (130-400) K/uL pCO2 (35-45) mm/Hg pO2 (80-100) mm/Hg HCO3 (21-28) mmol/L ABG pH (7.35-7.45) ABG Total CO2 (22-28) mmol/L ABG O2 Saturation (95-98) % ABG O2 Content (15-23) ML/dL ABG Base Excess (-2.0-3.0) mmol/L ABG Hemoglobin (11.7-17.4) g/dL ABG Carboxyhemoglobin (0.5-1.5) % POC ABG HHb (Measured) (0.0-5.0) % ABG Methemoglobin (0.0-3.0) % ABG O2 Capacity (16-24) mL/dL Forrest Test A-a O2 Difference mm/Hg Hgb O2 Saturation (95.0-98.0) % Vent Mode Mechanical Rate FiO2 % Tidal Volume PEEP Sodium 142 (132-148) mmol/l Potassium 3.9 (3.6-5.0) MMOL/L Chloride 104 (98-107) mmol/L Carbon Dioxide 33 H (22-30) mmol/L Anion Gap 9 L (10-20) BUN 27 H (9-20) mg/dl Creatinine 0.6 L (0.8-1.5) mg/dl Est GFR ( Amer) > 60 Est GFR (Non-Af Amer) > 60 POC Glucose (mg/dL) 167 H (65-110) mg/dL Random Glucose 142 H (75-110) mg/dL Calcium 8.1 L (8.4-10.2) mg/dL Laboratory Results - last 24 hr 05/31/18 06/01/18 06/01/18 21:10 05:00 05:00 WBC 11.2 H RBC 3.15 L Hgb 8.3 L Hct 25.9 L MCV 82.4 MCH 26.3 L MCHC 31.9 L RDW 15.6 H Plt Count 228 pCO2 pO2 HCO3 ABG pH ABG Total CO2 ABG O2 Saturation ABG O2 Content ABG Base Excess ABG Hemoglobin ABG Carboxyhemoglobin POC ABG HHb (Measured) ABG Methemoglobin ABG O2 Capacity Forrest Test A-a O2 Difference Hgb O2 Saturation Vent Mode Mechanical Rate FiO2 Tidal Volume PEEP Sodium 142 Potassium 3.9 Chloride 104 Carbon Dioxide 33 H Anion Gap 9 L BUN 27 H Creatinine 0.6 L Est GFR ( Amer) > 60 Est GFR (Non-Af Amer) > 60 POC Glucose (mg/dL) 167 H Random Glucose 142 H Calcium 8.1 L 06/01/18 06/01/18 06/01/18 05:00 07:12 11:27 WBC RBC Hgb Hct MCV MCH MCHC RDW Plt Count pCO2 42 pO2 93 HCO3 36.7 H ABG pH 7.57 H ABG Total CO2 39.8 H ABG O2 Saturation 100.9 H ABG O2 Content 11.6 L ABG Base Excess 15.0 H ABG Hemoglobin 8.3 L ABG Carboxyhemoglobin 1.9 H POC ABG HHb (Measured) -0.9 L ABG Methemoglobin 1.3 ABG O2 Capacity 11.5 L Forrest Test Yes A-a O2 Difference 211.0 Hgb O2 Saturation 97.7 Vent Mode A/c Mechanical Rate 14 FiO2 50.0 Tidal Volume 500 PEEP 5 Sodium Potassium Chloride Carbon Dioxide Anion Gap BUN Creatinine Est GFR ( Amer) Est GFR (Non-Af Amer) POC Glucose (mg/dL) 134 H 135 H Random Glucose Calcium Radiology Impressions: Radiology Impressions Chest X-Ray 06/01/18 04:00 IMPRESSION: Stable infiltrates mid superior right lung zones with remaining lung capps clear. Fingerstick Blood Sugar Results: 132 Critical Care Progress Note - Nutrition Nutrition: Nutrition Category Date Time Status NPO Diet [DIET] Diets 05/27/18 Dinner Active Assessment/Plan (1) Acute respiratory failure with hypoxia Current Visit: Yes Status: Acute Priority: High Comment: Vent weaning in progress, Off seations Aggressive pulmonary toilet, chest PT, suctioning (2) Severe sepsis Current Visit: Yes Status: Acute Priority: High Comment: Continue Antibiotics with IV Vancomycin, Diflucan and Meropenem (3) Aspiration pneumonia Current Visit: Yes Status: Acute Priority: High (4) Hyponatremia Current Visit: Yes Status: Resolved Priority: Medium (5) Atrial fibrillation with RVR Current Visit: Yes Status: Resolved (6) Dementia Current Visit: No Status: Chronic Priority: Medium
[2018-06-02] MEDS: Proshield Plus GEL TOP SCH ×3 (01:26→16:15)
[2018-06-02] MEDS: Meropenem 1 GM in Sodium Chloride 0.9% 100 ML IVPB SCH ×3 (01:47→16:16)
[2018-06-02 05:23] LABS: ABG ALLEN TEST YES; ARTERIAL BLOOD GAS HCO3 35.2 mmol/L (21-28); ARTERIAL BLOOD GAS HEMOGLOBIN 10.2 g/dL (11.7-17.4); ARTERIAL BLOOD GAS O2 CAPACITY 14.1 mL/dL (16-24); ARTERIAL BLOOD GAS O2 CONTENT 14.1 ML/dL (15-23); ARTERIAL BLOOD GAS PCO2 42 mm/Hg (35-45); ARTERIAL BLOOD GAS PH 7.55 (7.35-7.45); ARTERIAL BLOOD GAS PO2 111 mm/Hg (80-100)
[2018-06-02 07:08] LABS: MEAN CELL VOLUME 81.7 fl (80.0-94.0); RBC 2.96 Mil/uL (4.40-5.90); RED CELL DISTRIBUTION WIDTH 15.6 % (11.5-14.5); WHITE BLOOD COUNT 10.7 K/uL (4.8-10.8)
[2018-06-02 07:32] LABS: BLOOD UREA NITROGEN 23 mg/dl (9-20); CALCIUM 7.8 mg/dL (8.4-10.2); GFR NON-AFRICAN AMERICAN > 60
[2018-06-02] MEDS: Ipratropium 0.02% Inhal Soln (0.5 mg/2.5 ml) UD IH SCH ×3 (07:52→23:40)
[2018-06-02] MEDS: Acetylcysteine 10% 4 ML IH SCH ×3 (07:52→23:41)
[2018-06-02] MEDS: Vitamins A & D Oint UD Foilpak TOP SCH ×3 (08:32→16:15)
[2018-06-02] MEDS: Enoxaparin 40 mg Syringe SC SCH (08:34)
--- NOTE | 2018-06-02 09:50 | CP.PCM.PN ---
Subjective - Date & Time of Evaluation Date of Evaluation: 06/02/18 Time of Evaluation: 09:50 - Subjective Subjective: ID note- Patient seen and examined today in ICU. remains intubated . afebrile past 2 days. Objective - Vital Signs/Intake and Output Vital Signs (last 24 hours): Temp Pulse Resp BP Pulse Ox 98.8 F 70 20 158/71 H 98 06/02/18 08:00 06/02/18 08:32 06/02/18 08:00 06/02/18 08:32 06/02/18 08:00 Intake and Output: 06/02/18 06/02/18 06:59 18:59 Intake Total 1170 120 Output Total 1500 Balance -330 120 - Medications Medications: Current Medications Acetaminophen (Tylenol 650mg/20.3ml Solution Ud) 650 mg PO Q4 PRN PRN Reason: Temperature Last Admin: 05/31/18 10:03 Dose: 650 mg Acetylcysteine (Mucomyst 10% 4ml) 2 ml IH RQ8 [facility] Last Admin: 06/02/18 07:52 Dose: 2 ml Alendronate Sodium (Fosamax) 70 mg PO FR [facility] Last Admin: 05/21/18 10:29 Dose: 70 mg Artificial Tears (Artificial Tears) 2 drop OU Q6 KEN Last Admin: 06/01/18 21:50 Dose: 2 drop Calcium Carbonate (Oscal) 500 mg PO BID [facility] Last Admin: 05/21/18 10:26 Dose: 500 mg Cholecalciferol (Vitamin D) 1,000 intlu PO BID [facility] Last Admin: 05/21/18 10:27 Dose: 1,000 intlu Dimethicone (Proshield Plus Skin Protectant) 1 applic TOP Q8 [facility] Last Admin: 06/02/18 01:26 Dose: 1 applic Donepezil HCl (Aricept) 5 mg PO HS [facility] Last Admin: 05/20/18 21:28 Dose: 5 mg Enoxaparin Sodium (Lovenox) 40 mg SC DAILY [facility]; Protocol Last Admin: 06/02/18 08:34 Dose: 40 mg Meropenem 1 gm/ Sodium (Chloride) 100 mls @ 100 mls/hr IVPB Q8 KEN; Protocol Last Admin: 06/02/18 08:31 Dose: 100 mls/hr Fluconazole (Diflucan Iv 100 Mg/50 Ml Ns) 50 mls @ 50 mls/hr IVPB DAILY@1400 KEN; Protocol Last Admin: 06/01/18 14:22 Dose: 50 mls/hr Ipratropium [place]isco (Atrovent) 0.5 mg IH RQ8 [facility] Last Admin: 06/02/18 07:52 Dose: 0.5 mg Memantine (Namenda) 5 mg PO Q12 [facility] Last Admin: 05/21/18 10:25 Dose: 5 mg Metoprolol Tartrate (Lopressor) 50 mg PO Q12 [facility] Last Admin: 06/02/18 08:32 Dose: 50 mg Multivitamins/Minerals (Therapeutic-M Tab) 1 tab PO DAILY [facility] Last Admin: 05/21/18 10:27 Dose: 1 tab Nystatin (Nystop Topical Powder) 1 applic TOP Q8H [facility] Last Admin: 06/02/18 01:46 Dose: 1 applic Pantoprazole Sodium (Protonix Inj) 40 mg IVP DAILY [facility] Last Admin: 06/02/18 08:31 Dose: 40 mg Senna/Docusate Sodium (Senokot S 50 Mg-8.6 Mg) 1 tab PO HS [facility] Last Admin: 05/20/18 21:29 Dose: 1 tab Tamsulosin HCl (Flomax) 0.4 mg PO QPM [facility] Last Admin: 05/20/18 17:19 Dose: 0.4 mg Vitamin A (Vitamin A & D Oint Ud Foilpak) 1 ea TOP BID [facility] Last Admin: 06/02/18 08:32 Dose: 1 ea - Labs Labs: - Additional Findings Additional findings: - Constitutional Appears: Chronically Ill - ENT Exam Additional comments: ET tube in place - Respiratory Exam Additional comments: decreased breath sounds on the right side - Cardiovascular Exam Cardiovascular Exam: Tachycardia, +S1, +S2 - GI/Abdominal Exam GI & Abdominal Exam: Soft, Normal Bowel Sounds Additional comments: ND, NT - Extremities Exam Extremities Exam: Normal Inspection - Neurological Exam Additional comments: Intubated and lethargic Laboratory Results - last 72 hr 05/30/18 05/30/18 05/30/18 04:51 16:39 22:31 WBC RBC Hgb Hct MCV MCH MCHC RDW Plt Count pCO2 39 pO2 69 L HCO3 34.8 H ABG pH 7.57 H ABG Total CO2 36.9 H ABG O2 Saturation 98.8 H ABG O2 Content 12.0 L ABG Base Excess 12.6 H ABG Hemoglobin 8.8 L ABG Carboxyhemoglobin 2.0 H POC ABG HHb (Measured) 1.2 ABG Methemoglobin 0.8 ABG O2 Capacity 12.1 L Forrest Test Yes ABG Potassium A-a O2 Difference 239.0 Hgb O2 Saturation 96.1 Sodium Chloride Glucose Lactate Vent Mode A/c Mechanical Rate 14 FiO2 50.0 Tidal Volume 500 PEEP 5 Pressure Support CPAP Potassium Carbon Dioxide Anion Gap BUN Creatinine Est GFR ( Amer) Est GFR (Non-Af Amer) POC Glucose (mg/dL) 189 H 162 H Random Glucose Calcium Arterial Blood Potassium Vancomycin Trough 05/31/18 05/31/18 05/31/18 01:56 03:26 04:00 WBC RBC Hgb Hct MCV MCH MCHC RDW Plt Count pCO2 40 pO2 126 H HCO3 34.7 H ABG pH 7.56 H ABG Total CO2 37.0 H ABG O2 Saturation 99.7 H ABG O2 Content ABG Base Excess 12.5 H ABG Hemoglobin ABG Carboxyhemoglobin POC ABG HHb (Measured) ABG Methemoglobin ABG O2 Capacity Forrest Test Yes ABG Potassium 3.5 L A-a O2 Difference 181.0 Hgb O2 Saturation Sodium 144.0 Chloride 111.0 H Glucose 152 H Lactate 1.6 Vent Mode A/c Mechanical Rate 14 FiO2 50.0 Tidal Volume 500 PEEP 5 Pressure Support CPAP Potassium Carbon Dioxide Anion Gap BUN Creatinine Est GFR ( Amer) Est GFR (Non-Af Amer) POC Glucose (mg/dL) 141 H 134 H Random Glucose Calcium Arterial Blood Potassium 3.5 L Vancomycin Trough 05/31/18 05/31/18 05/31/18 04:15 04:15 05:54 WBC 12.8 H RBC 3.15 L Hgb 8.3 L Hct 26.0 L MCV 82.7 MCH 26.3 L MCHC 31.8 L RDW 15.9 H Plt Count 216 pCO2 pO2 HCO3 ABG pH ABG Total CO2 ABG O2 Saturation ABG O2 Content ABG Base Excess ABG Hemoglobin ABG Carboxyhemoglobin POC ABG HHb (Measured) ABG Methemoglobin ABG O2 Capacity Forrest Test ABG Potassium A-a O2 Difference Hgb O2 Saturation Sodium 142 Chloride 103 Glucose Lactate Vent Mode Mechanical Rate FiO2 Tidal Volume PEEP Pressure Support CPAP Potassium 3.8 Carbon Dioxide 30 Anion Gap 13 BUN 31 H Creatinine 0.5 L Est GFR ( Amer) > 60 Est GFR (Non-Af Amer) > 60 POC Glucose (mg/dL) 156 H Random Glucose 137 H Calcium 7.8 L Arterial Blood Potassium Vancomycin Trough 05/31/18 05/31/18 05/31/18 12:00 16:31 21:10 WBC RBC Hgb Hct MCV MCH MCHC RDW Plt Count pCO2 pO2 HCO3 ABG pH ABG Total CO2 ABG O2 Saturation ABG O2 Content ABG Base Excess ABG Hemoglobin ABG Carboxyhemoglobin POC ABG HHb (Measured) ABG Methemoglobin ABG O2 Capacity Forrest Test ABG Potassium A-a O2 Difference Hgb O2 Saturation Sodium Chloride Glucose Lactate Vent Mode Mechanical Rate FiO2 Tidal Volume PEEP Pressure Support CPAP Potassium Carbon Dioxide Anion Gap BUN Creatinine Est GFR ( Amer) Est GFR (Non-Af Amer) POC Glucose (mg/dL) 136 H 209 H 167 H Random Glucose Calcium Arterial Blood Potassium Vancomycin Trough 06/01/18 06/01/18 06/01/18 05:00 05:00 05:00 WBC 11.2 H RBC 3.15 L Hgb 8.3 L Hct 25.9 L MCV 82.4 MCH 26.3 L MCHC 31.9 L RDW 15.6 H Plt Count 228 pCO2 42 pO2 93 HCO3 36.7 H ABG pH 7.57 H ABG Total CO2 39.8 H ABG O2 Saturation 100.9 H ABG O2 Content 11.6 L ABG Base Excess 15.0 H ABG Hemoglobin 8.3 L ABG Carboxyhemoglobin 1.9 H POC ABG HHb (Measured) -0.9 L ABG Methemoglobin 1.3 ABG O2 Capacity 11.5 L Forrest Test Yes ABG Potassium A-a O2 Difference 211.0 Hgb O2 Saturation 97.7 Sodium 142 Chloride 104 Glucose Lactate Vent Mode A/c Mechanical Rate 14 FiO2 50.0 Tidal Volume 500 PEEP 5 Pressure Support CPAP Potassium 3.9 Carbon Dioxide 33 H Anion Gap 9 L BUN 27 H Creatinine 0.6 L Est GFR ( Amer) > 60 Est GFR (Non-Af Amer) > 60 POC Glucose (mg/dL) Random Glucose 142 H Calcium 8.1 L Arterial Blood Potassium Vancomycin Trough 06/01/18 06/01/18 06/01/18 07:12 11:27 16:30 WBC RBC Hgb Hct MCV MCH MCHC RDW Plt Count pCO2 pO2 HCO3 ABG pH ABG Total CO2 ABG O2 Saturation ABG O2 Content ABG Base Excess ABG Hemoglobin ABG Carboxyhemoglobin POC ABG HHb (Measured) ABG Methemoglobin ABG O2 Capacity Forrest Test ABG Potassium A-a O2 Difference Hgb O2 Saturation Sodium Chloride Glucose Lactate Vent Mode Mechanical Rate FiO2 Tidal Volume PEEP Pressure Support CPAP Potassium Carbon Dioxide Anion Gap BUN Creatinine Est GFR ( Amer) Est GFR (Non-Af Amer) POC Glucose (mg/dL) 134 H 135 H 132 H Random Glucose Calcium Arterial Blood Potassium Vancomycin Trough 06/01/18 06/02/18 06/02/18 20:37 04:45 05:50 WBC 10.7 RBC 2.96 L Hgb 8.0 L Hct 24.2 L MCV 81.7 MCH 27.0 MCHC 33.0 RDW 15.6 H Plt Count 240 pCO2 42 pO2 111 H HCO3 35.2 H ABG pH 7.55 H ABG Total CO2 38.0 H ABG O2 Saturation 100.0 H ABG O2 Content 14.1 L ABG Base Excess 13.1 H ABG Hemoglobin 10.2 L ABG Carboxyhemoglobin 1.5 POC ABG HHb (Measured) 0.0 ABG Methemoglobin 1.3 ABG O2 Capacity 14.1 L Forrest Test Yes ABG Potassium A-a O2 Difference 122.0 Hgb O2 Saturation 97.2 Sodium Chloride Glucose Lactate Vent Mode Cpap Mechanical Rate FiO2 40.0 Tidal Volume PEEP Pressure Support 15 CPAP 5 Potassium Carbon Dioxide Anion Gap BUN Creatinine Est GFR ( Amer) Est GFR (Non-Af Amer) POC Glucose (mg/dL) 134 H Random Glucose Calcium Arterial Blood Potassium Vancomycin Trough 06/02/18 06/02/18 06/02/18 06:00 06:00 06:17 WBC RBC Hgb Hct MCV MCH MCHC RDW Plt Count pCO2 pO2 HCO3 ABG pH ABG Total CO2 ABG O2 Saturation ABG O2 Content ABG Base Excess ABG Hemoglobin ABG Carboxyhemoglobin POC ABG HHb (Measured) ABG Methemoglobin ABG O2 Capacity Forrest Test ABG Potassium A-a O2 Difference Hgb O2 Saturation Sodium 139 Chloride 97 L Glucose Lactate Vent Mode Mechanical Rate FiO2 Tidal Volume PEEP Pressure Support CPAP Potassium 3.8 Carbon Dioxide 33 H Anion Gap 13 BUN 23 H Creatinine 0.5 L Est GFR ( Amer) > 60 Est GFR (Non-Af Amer) > 60 POC Glucose (mg/dL) 120 H Random Glucose 119 H Calcium 7.8 L Arterial Blood Potassium Vancomycin Trough 16.7 H 06/02/18 11:14 WBC RBC Hgb Hct MCV MCH MCHC RDW Plt Count pCO2 pO2 HCO3 ABG pH ABG Total CO2 ABG O2 Saturation ABG O2 Content ABG Base Excess ABG Hemoglobin ABG Carboxyhemoglobin POC ABG HHb (Measured) ABG Methemoglobin ABG O2 Capacity Forrest Test ABG Potassium A-a O2 Difference Hgb O2 Saturation Sodium Chloride Glucose Lactate Vent Mode Mechanical Rate FiO2 Tidal Volume PEEP Pressure Support CPAP Potassium Carbon Dioxide Anion Gap BUN Creatinine Est GFR ( Amer) Est GFR (Non-Af Amer) POC Glucose (mg/dL) 116 H Random Glucose Calcium Arterial Blood Potassium Vancomycin Trough Microbiology 05/31/18 12:44 Blood-Venous Blood Culture - Preliminary NO GROWTH AFTER 48 HOURS 05/31/18 12:34 Blood-Venous Blood Culture - Preliminary NO GROWTH AFTER 48 HOURS 05/28/18 05:00 Bronchial Washings Bronchial Culture - Final Renee Albicans 05/27/18 21:00 Blood-Venous Blood Culture - Final NO GROWTH AFTER 5 DAYS 05/27/18 21:00 Blood-Venous Gram Stain - Final TEST NOT PERFORMED 05/27/18 21:05 Blood-Venous Blood Culture - Final NO GROWTH AFTER 5 DAYS 05/27/18 21:05 Blood-Venous Gram Stain - Final TEST NOT PERFORMED 05/26/18 14:13 Blood-Venous Blood Culture - Final NO GROWTH AFTER 5 DAYS 05/26/18 14:13 Blood-Venous Gram Stain - Final TEST NOT PERFORMED 05/27/18 21:00 Trachasp Gram Stain - Final 05/27/18 21:00 Trachasp Sputum Culture - Final Yeast Species 05/24/18 14:15 Blood-Venous Blood Culture - Final NO GROWTH AFTER 5 DAYS 05/24/18 14:15 Blood-Venous Gram Stain - Final TEST NOT PERFORMED 05/24/18 14:00 Blood-Venous Blood Culture - Final NO GROWTH AFTER 5 DAYS 05/24/18 14:00 Blood-Venous Gram Stain - Final TEST NOT PERFORMED 05/27/18 21:00 Urine,Catheterized Urine Culture - Final No Growth (<1,000 CFU/ML) 05/24/18 15:00 Sputum Gram Stain - Final 05/24/18 15:00 Sputum Sputum Culture - Final Yeast Species 05/24/18 09:35 Urine,Catheterized Urine Culture - Final No Growth (<1,000 CFU/ML) 05/20/18 15:31 Blood-Venous Blood Culture - Final NO GROWTH AFTER 5 DAYS 05/20/18 15:31 Blood-Venous Gram Stain - Final TEST NOT PERFORMED 05/20/18 15:42 Blood-Venous Blood Culture - Final NO GROWTH AFTER 5 DAYS 05/20/18 15:42 Blood-Venous Gram Stain - Final TEST NOT PERFORMED 05/24/18 09:35 Naris MRSA Culture (Admit) - Final MRSA NOT DETECTED 05/21/18 16:57 Sputum Induced Gram Stain - Final 05/21/18 16:57 Sputum Induced Sputum Culture - Final Yeast Species 05/12/18 07:50 Blood Blood Culture - Final NO GROWTH AFTER 5 DAYS 05/12/18 07:50 Blood Gram Stain - Final TEST NOT PERFORMED 05/12/18 Unknown Blood Blood Culture - Final NO GROWTH AFTER 5 DAYS 05/12/18 Unknown Blood Gram Stain - Final TEST NOT PERFORMED 05/12/18 08:40 Urine,Catheterized Urine Culture - Final Escherichia Coli Accession No. : [id number] Patient Name / ID : TANNER BOWIE / [id number] Exam Date : 06/02/2018 04:00:59 ( Approved ) Study Comment : Sex / Age : M / [id number] Creator : Naveen Hernandez MD Dictator : Naveen Hernandez MD Integration Analyst : Garbage Collector Supervisor : Naveen Hernandez MD Approver2 : Report Date : 06/02/2018 11:32:13 My Comment : Date of service: 06/02/2018 HISTORY: intubated COMPARISON: Portable chest 06/01/2018 FINDINGS: LUNGS: Endotracheal and nasogastric tubes do not appear significantly changed in position. No improvement in scattered right-sided pulmonary infiltrates primarily affecting right upper lobe. PLEURA: No significant pleural effusion identified, no pneumothorax apparent. CARDIOVASCULAR: Calcific atherosclerotic changes are seen related to the thoracic aorta. Normal cardiac size. No pulmonary vascular congestion. OSSEOUS STRUCTURES: No significant abnormalities. VISUALIZED UPPER ABDOMEN: Normal. OTHER FINDINGS: Skin folds noted bilaterally at the inferior lung zones. IMPRESSION: No interval improvement in scattered right upper greater than lower lobe and possible middle lobe infiltrates. No pulmonary vascular congestion. Assessment and Plan (1) Sepsis syndrome Status: Acute (2) Fever Status: Resolved (3) Hypoxemia Status: Chronic (4) Aspiration pneumonia Status: Acute - Assessment and Plan (Free Text) Assessment: A/P- 82 year old ID resident male with dementia, admitted with fever initially and had UTI and ? asp pneumonia and was treated with IV antibiotiocs and was fever free and normal wbc and doing ok but few days ago had aspiration pneumonia and hypoxemic and rapid a.fib and is s/p intubation and in ICU. remains intubated and lethargic. leukocytosis has resolved. afebrile past 36 hours. cxr- right side infiltrates but improved compared to before. admission UA- Pos LE, neg Nitrates admission urine cx- E.Coli pansensitive- treated for this already blood cx- neg x 5 sputum cx- yeast BAL cx- C.Albicans PLan- advise to continue with IV meropenem and clindamycin for added anaerobic coverage.day #9. also advise to continue with IV fluconazole for yeast in sputum.day #7 continue with vanco for extra coverage for pneumonitis day #7, however , trough slight ly high today hence hold the dose today and recheck trough in am. keep trough <15. all labs and imaging and chart notes reviewed. critical care time spent 30 minutes.
[2018-06-02] MEDS: Artificial Tears Opht Soln OU SCH ×4 (11:09→21:21)
--- NOTE | 2018-06-02 11:37 | RAD ---
Date of service: 06/02/2018 HISTORY: intubated COMPARISON: Portable chest 06/01/2018 FINDINGS: LUNGS: Endotracheal and nasogastric tubes do not appear significantly changed in position. No improvement in scattered right-sided pulmonary infiltrates primarily affecting right upper lobe. PLEURA: No significant pleural effusion identified, no pneumothorax apparent. CARDIOVASCULAR: Calcific atherosclerotic changes are seen related to the thoracic aorta. Normal cardiac size. No pulmonary vascular congestion. OSSEOUS STRUCTURES: No significant abnormalities. VISUALIZED UPPER ABDOMEN: Normal. OTHER FINDINGS: Skin folds noted bilaterally at the inferior lung zones. IMPRESSION: No interval improvement in scattered right upper greater than lower lobe and possible middle lobe infiltrates. No pulmonary vascular congestion.
[2018-06-02] MEDS: Fluconazole IV 100mg/50 ml NS 50 ML IVPB SCH (14:44)
--- NOTE | 2018-06-02 15:10 | CP.PCM.PN ---
Subjective - Date & Time of Evaluation Date of Evaluation: 06/02/18 Time of Evaluation: 11:50 - Subjective Subjective: F/U Respiratory failure Pt intubated, VS stable, minimal response to verbal/tactile stimuli Objective - Vital Signs/Intake and Output Vital Signs (last 24 hours): Temp Pulse Resp BP Pulse Ox 98.8 F 63 21 150/70 100 06/02/18 12:00 06/02/18 12:00 06/02/18 12:00 06/02/18 12:00 06/02/18 12:00 Intake and Output: 06/02/18 06/02/18 06:59 18:59 Intake Total 1170 570 Output Total 1500 Balance -330 570 - Medications Medications: Current Medications Acetaminophen (Tylenol 650mg/20.3ml Solution Ud) 650 mg PO Q4 PRN PRN Reason: Temperature Last Admin: 05/31/18 10:03 Dose: 650 mg Acetylcysteine (Mucomyst 10% 4ml) 2 ml IH RQ8 K[facility] Last Admin: 06/02/18 07:52 Dose: 2 ml Alendronate Sodium (Fosamax) 70 mg PO FR [facility] Last Admin: 05/21/18 10:29 Dose: 70 mg Artificial Tears (Artificial Tears) 2 drop OU Q6 KEN Last Admin: 06/02/18 11:09 Dose: 2 drop Calcium Carbonate (Oscal) 500 mg PO BID [facility] Last Admin: 05/21/18 10:26 Dose: 500 mg Cholecalciferol (Vitamin D) 1,000 intlu PO BID [facility] Last Admin: 05/21/18 10:27 Dose: 1,000 intlu Dimethicone (Proshield Plus Skin Protectant) 1 applic TOP Q8 [facility] Last Admin: 06/02/18 10:59 Dose: 1 applic Donepezil HCl (Aricept) 5 mg PO HS [facility] Last Admin: 05/20/18 21:28 Dose: 5 mg Enoxaparin Sodium (Lovenox) 40 mg SC DAILY [facility]; Protocol Last Admin: 06/02/18 08:34 Dose: 40 mg Meropenem 1 gm/ Sodium (Chloride) 100 mls @ 100 mls/hr IVPB Q8 [facility]; Protocol Last Admin: 06/02/18 08:31 Dose: 100 mls/hr Fluconazole (Diflucan Iv 100 Mg/50 Ml Ns) 50 mls @ 50 mls/hr IVPB DAILY@1400 [facility]; Protocol Last Admin: 06/02/18 14:44 Dose: 50 mls/hr Ipratropium [place] (Atrovent) 0.5 mg IH RQ8 [facility] Last Admin: 06/02/18 07:52 Dose: 0.5 mg Memantine (Namenda) 5 mg PO Q12 [facility] Last Admin: 05/21/18 10:25 Dose: 5 mg Metoprolol Tartrate (Lopressor) 50 mg PO Q12 [facility] Last Admin: 06/02/18 08:32 Dose: 50 mg Multivitamins/Minerals (Therapeutic-M Tab) 1 tab PO DAILY [facility] Last Admin: 05/21/18 10:27 Dose: 1 tab Nystatin (Nystop Topical Powder) 1 applic TOP Q8H [facility] Last Admin: 06/02/18 11:00 Dose: 1 applic Pantoprazole Sodium (Protonix Inj) 40 mg IVP DAILY [facility] Last Admin: 06/02/18 08:31 Dose: 40 mg Senna/Docusate Sodium (Senokot S 50 Mg-8.6 Mg) 1 tab PO HS [facility] Last Admin: 05/20/18 21:29 Dose: 1 tab Tamsulosin HCl (Flomax) 0.4 mg PO QPM [facility] Last Admin: 05/20/18 17:19 Dose: 0.4 mg Vitamin A (Vitamin A & D Oint Ud Foilpak) 1 ea TOP BID [facility] Last Admin: 06/02/18 09:00 Dose: 1 ea - Labs Labs: 06/02/18 05:50 06/02/18 06:00 PT 15.7 Seconds (9.8-13.1) H 05/12/18 07:50 INR 1.4 05/12/18 07:50 APTT 34.4 Seconds (25.6-37.1) 05/12/18 07:50 - Constitutional Appears: Chronically Ill - Head Exam Head Exam: NORMAL INSPECTION - Eye Exam Eye Exam: PERRL - ENT Exam Additional comments: Intubated, OGT - Neck Exam Neck Exam: Normal Inspection - Respiratory Exam Respiratory Exam: Decreased Breath Sounds (at bases), Rhonchi (scattered) - Cardiovascular Exam Cardiovascular Exam: REGULAR RHYTHM - GI/Abdominal Exam GI & Abdominal Exam: Soft, Normal Bowel Sounds - Extremities Exam Additional comments: Edema all extremities. - Back Exam Additional comments: Sacral ulcer - Neurological Exam Additional comments: Intubated, minimal response to tactile/verbal stimuli - Skin Skin Exam: Warm Assessment and Plan (1) Respiratory failure Status: Acute (2) Aspiration pneumonia Status: Acute (3) E. coli UTI Status: Acute (4) Fever Status: Resolved (5) Sepsis syndrome Status: Acute (6) Hypoxemia Status: Chronic (7) Esophageal dilatation Status: Chronic (8) Dementia Status: Chronic (9) HTN (hypertension) Status: Chronic (10) DMII (diabetes mellitus, type 2) Status: Chronic - Assessment and Plan (Free Text) Plan: Continue Merren, Atrovent and rest of Tx. Attempt of extubation Critical care time: 31 min.
--- NOTE | 2018-06-02 15:17 | CP.CCUPN ---
CCU Subjective - Physician Review Subjective (Free Text): No change in overall status, is not opening eyes spontaneously as previously, not interactive, not following any specific commands; on MV, breathing 23 on CPAP 5 PS 15, 40% oxygen. NO RECURRENT FEVER spikes, but now with Ts in the 98-99F range. SBPs 130 - 170s, HR 60s sinus. Other vitals and I/O's reviewed. Fluid balance almost even last 24H. On OGT feed with Glucerna 45 ml/hr. ROS: No other pertinent negs or positives on 10+ system review obtainable due to sedation. PMSFH: All other Nursing and physician documentation reviewed to date; no new pertinent info noted relevant to current medical problems. EXAM- HEENT: no icterus, no gaze preference, pupils reactive, no nystagmus NECK: no JVD visible, supple, carotids equal upstroke bilat/no bruit CHEST: decreased BS at the bases, no wheezes audible HEART: regular, distant, S1S2, no rubs ABD: soft, no distension, no focal tenderness, no tympany, no guarding, no organomegaly, BS hypoactive. EXT: + LE edema, no mottling; no calf tenderness or palpable cords, distal pulses intact and symmetrical, no cyanosis, LUE midline catheter placed yesterday. NEURO: + tone, withdraws to pain x 4. SKIN: no rashes, warm and dry LABS: WBC= 10.7 HGB= 8.0 PLTs= 240K 7.55/42/111 Na= 139 K= 3.8 CL= 97 HCO3= 33 BUN/Cr= 23/0.5 BS= 119 CXR; (my interp) ETT position OK above brianne, persistent R sided infiltrates, no improvement noted. IMPRESSION / MAJOR PROBLEMS NOW: 1. Acute hypoxemic resp failure 2 Bilateral pneumonia 2. Severe Sepsis with Shock 2 #1, r/o Bacteremia, + E.coli UTI 3. s/p Paroxysmal A Fib with RVR 4. s/p Hyponatremia with Azotemia/ Dehydration 5. h/o Dementia PLAN: 1. Day #11 MV support, decreased FIo2 at 40%. CXRs appear to be lagging behind patient. SBT performed on CPAP PS with PS levels up to 20. Mental status not amenable to further MV weans nor extubation. He has demonstrated no ability to self-protect airway. Keep on pressure support ventilation for now. 2. Remains on empiric abx / afx coverage ( Stacey, Clinda, Vanco, Diflucan). 3. Ongoing hydration, improving BUN / Cr today, on 200ml Q4H free water, follow serum Na levels, too. 4. No further tachyarrythmias. Metoprolol added to medication regimen. 5. May need discussion with son regarding Trach unless he refuses and wishes to go for terminal Extubation as previously mentioned by him.
[2018-06-03] MEDS: Meropenem 1 GM in Sodium Chloride 0.9% 100 ML IVPB SCH ×3 (00:09→16:32)
[2018-06-03] MEDS: Proshield Plus GEL TOP SCH ×3 (00:10→16:33)
[2018-06-03] MEDS: Artificial Tears Opht Soln OU SCH ×4 (03:47→23:19)
[2018-06-03 04:16] LABS: ABG ALLEN TEST YES; ARTERIAL BLOOD GAS HCO3 33.5 mmol/L (21-28); ARTERIAL BLOOD GAS HEMOGLOBIN 8.2 g/dL (11.7-17.4); ARTERIAL BLOOD GAS O2 CAPACITY 11.3 mL/dL (16-24); ARTERIAL BLOOD GAS O2 CONTENT 11.4 ML/dL (15-23); ARTERIAL BLOOD GAS O2 SAT 100.8 % (95-98); ARTERIAL BLOOD GAS PCO2 37 mm/Hg (35-45); ARTERIAL BLOOD GAS PH 7.57 (7.35-7.45); ARTERIAL BLOOD GAS PO2 94 mm/Hg (80-100)
[2018-06-03 05:29] LABS: BLOOD UREA NITROGEN 22 mg/dl (9-20); CALCIUM 7.9 mg/dL (8.4-10.2); GFR NON-AFRICAN AMERICAN > 60
[2018-06-03 05:33] LABS: HEMOGLOBIN 8.7 g/dL (12.0-18.0); MEAN CELL VOLUME 82.7 fl (80.0-94.0); MEAN CORPUSCULAR HEMOGLOBIN 26.5 pg (27.0-31.0); MEAN CORPUSCULAR HGB CONC 32.1 g/dL (33.0-37.0); RBC 3.29 Mil/uL (4.40-5.90); WHITE BLOOD COUNT 12.8 K/uL (4.8-10.8)
[2018-06-03] MEDS: Ipratropium 0.02% Inhal Soln (0.5 mg/2.5 ml) UD IH SCH ×3 (07:58→23:50)
[2018-06-03] MEDS: Acetylcysteine 10% 4 ML IH SCH ×3 (07:59→23:50)
[2018-06-03] MEDS: Enoxaparin 40 mg Syringe SC SCH (08:36)
[2018-06-03] MEDS: Vitamins A & D Oint UD Foilpak TOP SCH ×3 (08:38→16:54)
--- NOTE | 2018-06-03 09:38 | CP.PCM.PN ---
Subjective - Date & Time of Evaluation Date of Evaluation: 06/02/18 Time of Evaluation: 15:30 - Subjective Subjective: no overnight events Objective - Vital Signs/Intake and Output Vital Signs (last 24 hours): Temp Pulse Resp BP Pulse Ox 99.9 F H 70 14 128/60 97 06/03/18 08:00 06/03/18 08:35 06/03/18 08:00 06/03/18 08:35 06/03/18 08:00 Intake and Output: 06/03/18 06/03/18 06:59 18:59 Intake Total 838 260 Output Total 1500 Balance -662 260 - Medications Medications: Current Medications Acetaminophen (Tylenol 650mg/20.3ml Solution Ud) 650 mg PO Q4 PRN PRN Reason: Temperature Last Admin: 05/31/18 10:03 Dose: 650 mg Acetylcysteine (Mucomyst 10% 4ml) 2 ml IH RQ8 [facility] Last Admin: 06/03/18 07:59 Dose: 2 ml Alendronate Sodium (Fosamax) 70 mg PO FR KEN Last Admin: 05/21/18 10:29 Dose: 70 mg Artificial Tears (Artificial Tears) 2 drop OU Q6 KEN Last Admin: 06/03/18 03:47 Dose: 2 drop Calcium Carbonate (Oscal) 500 mg PO BID KEN Last Admin: 05/21/18 10:26 Dose: 500 mg Cholecalciferol (Vitamin D) 1,000 intlu PO BID K[facility] Last Admin: 05/21/18 10:27 Dose: 1,000 intlu Dimethicone (Proshield Plus Skin Protectant) 1 applic TOP Q8 K[facility] Last Admin: 06/03/18 08:37 Dose: 1 applic Donepezil HCl (Aricept) 5 mg PO HS KEN Last Admin: 05/20/18 21:28 Dose: 5 mg Enoxaparin Sodium (Lovenox) 40 mg SC DAILY [facility]; Protocol Last Admin: 06/03/18 08:36 Dose: 40 mg Meropenem 1 gm/ Sodium (Chloride) 100 mls @ 100 mls/hr IVPB Q8 KEN; Protocol Last Admin: 06/03/18 08:39 Dose: 100 mls/hr Fluconazole (Diflucan Iv 100 Mg/50 Ml Ns) 50 mls @ 50 mls/hr IVPB DAILY@1400 SC H; Protocol Last Admin: 06/02/18 14:44 Dose: 50 mls/hr Ipratropium [place] (Atrovent) 0.5 mg IH RQ8 [facility] Last Admin: 06/03/18 07:58 Dose: 0.5 mg Memantine (Namenda) 5 mg PO Q12 [facility] Last Admin: 05/21/18 10:25 Dose: 5 mg Metoprolol Tartrate (Lopressor) 50 mg PO Q12 [facility]EN Last Admin: 06/03/18 08:35 Dose: 50 mg Multivitamins/Minerals (Therapeutic-M Tab) 1 tab PO DAILY [facility] Last Admin: 05/21/18 10:27 Dose: 1 tab Nystatin (Nystop Topical Powder) 1 applic TOP Q8H [facility] Last Admin: 06/03/18 03:00 Dose: 1 applic Pantoprazole Sodium (Protonix Inj) 40 mg IVP DAILY [facility] Last Admin: 06/03/18 08:37 Dose: 40 mg Senna/Docusate Sodium (Senokot S 50 Mg-8.6 Mg) 1 tab PO HS [facility] Last Admin: 05/20/18 21:29 Dose: 1 tab Tamsulosin HCl (Flomax) 0.4 mg PO QPM [facility] Last Admin: 05/20/18 17:19 Dose: 0.4 mg Vitamin A (Vitamin A & D Oint Ud Foilpak) 1 ea TOP BID [facility] Last Admin: 06/03/18 08:38 Dose: 1 ea - Labs Labs: 06/03/18 04:50 06/03/18 04:50 PT 15.7 Seconds (9.8-13.1) H 05/12/18 07:50 INR 1.4 05/12/18 07:50 APTT 34.4 Seconds (25.6-37.1) 05/12/18 07:50 - Head Exam Head Exam: NORMOCEPHALIC - Neck Exam Neck Exam: Normal Inspection - Respiratory Exam Respiratory Exam: Rhonchi, NORMAL BREATHING PATTERN - Cardiovascular Exam Cardiovascular Exam: REGULAR RHYTHM - GI/Abdominal Exam GI & Abdominal Exam: Soft, Normal Bowel Sounds Assessment and Plan - Assessment and Plan (Free Text) Assessment: 82 yo male with sepsis prognosis guarded ID input
--- NOTE | 2018-06-03 10:41 | CP.PCM.PN ---
Subjective - Date & Time of Evaluation Date of Evaluation: 06/03/18 Time of Evaluation: 10:41 - Subjective Subjective: ID Note- pt. is seen and examined today in ICu. remains intubated and lethargic. Objective - Vital Signs/Intake and Output Vital Signs (last 24 hours): Temp Pulse Resp BP Pulse Ox 99.9 F H 63 24 111/58 L 98 06/03/18 08:00 06/03/18 10:00 06/03/18 10:00 06/03/18 10:00 06/03/18 10:00 Intake and Output: 06/03/18 06/03/18 06:59 18:59 Intake Total 838 480 Output Total 1500 Balance -662 480 - Medications Medications: Current Medications Acetaminophen (Tylenol 650mg/20.3ml Solution Ud) 650 mg PO Q4 PRN PRN Reason: Temperature Last Admin: 05/31/18 10:03 Dose: 650 mg Acetylcysteine (Mucomyst 10% 4ml) 2 ml IH RQ8 [facility] Last Admin: 06/03/18 07:59 Dose: 2 ml Alendronate Sodium (Fosamax) 70 mg PO FR [facility] Last Admin: 05/21/18 10:29 Dose: 70 mg Artificial Tears (Artificial Tears) 2 drop OU Q6 [facility] Last Admin: 06/03/18 09:53 Dose: 2 drop Calcium Carbonate (Oscal) 500 mg PO BID [facility] Last Admin: 05/21/18 10:26 Dose: 500 mg Cholecalciferol (Vitamin D) 1,000 intlu PO BID [facility] Last Admin: 05/21/18 10:27 Dose: 1,000 intlu Dimethicone (Proshield Plus Skin Protectant) 1 applic TOP Q8 [facility] Last Admin: 06/03/18 08:37 Dose: 1 applic Donepezil HCl (Aricept) 5 mg PO HS KEN Last Admin: 05/20/18 21:28 Dose: 5 mg Enoxaparin Sodium (Lovenox) 40 mg SC DAILY [facility]; Protocol Last Admin: 06/03/18 08:36 Dose: 40 mg Meropenem 1 gm/ Sodium (Chloride) 100 mls @ 100 mls/hr IVPB Q8 [facility]; Protocol Last Admin: 06/03/18 08:39 Dose: 100 mls/hr Fluconazole (Diflucan Iv 100 Mg/50 Ml Ns) 50 mls @ 50 mls/hr IVPB DAILY@1400 [facility]; Protocol Last Admin: 06/02/18 14:44 Dose: 50 mls/hr Ipratropium [place] (Atrovent) 0.5 mg IH RQ8 [facility] Last Admin: 06/03/18 07:58 Dose: 0.5 mg Memantine (Namenda) 5 mg PO Q12 [facility] Last Admin: 05/21/18 10:25 Dose: 5 mg Metoprolol Tartrate (Lopressor) 50 mg PO Q12 [facility] Last Admin: 06/03/18 08:35 Dose: 50 mg Multivitamins/Minerals (Therapeutic-M Tab) 1 tab PO DAILY [facility] Last Admin: 05/21/18 10:27 Dose: 1 tab Nystatin (Nystop Topical Powder) 1 applic TOP Q8H [facility] Last Admin: 06/03/18 09:51 Dose: 1 applic Pantoprazole Sodium (Protonix Inj) 40 mg IVP DAILY [facility] Last Admin: 06/03/18 08:37 Dose: 40 mg Senna/Docusate Sodium (Senokot S 50 Mg-8.6 Mg) 1 tab PO HS [facility] Last Admin: 05/20/18 21:29 Dose: 1 tab Tamsulosin HCl (Flomax) 0.4 mg PO QPM [facility] Last Admin: 05/20/18 17:19 Dose: 0.4 mg Vitamin A (Vitamin A & D Oint Ud Foilpak) 1 ea TOP BID [facility] Last Admin: 06/03/18 09:52 Dose: 1 ea - Labs Labs: - Additional Findings Additional findings: - Constitutional Appears: Chronically Ill - ENT Exam Additional comments: ET tube in place - Respiratory Exam Additional comments: decreased breath sounds on the right side - Cardiovascular Exam Cardiovascular Exam: Tachycardia, +S1, +S2 - GI/Abdominal Exam GI & Abdominal Exam: Soft, Normal Bowel Sounds Additional comments: ND, NT - Extremities Exam Extremities Exam: Normal Inspection - Neurological Exam Additional comments: Intubated and lethargic Laboratory Results - last 72 hr 05/31/18 06/01/18 06/01/18 21:10 05:00 05:00 WBC 11.2 H RBC 3.15 L Hgb 8.3 L Hct 25.9 L MCV 82.4 MCH 26.3 L MCHC 31.9 L RDW 15.6 H Plt Count 228 pCO2 pO2 HCO3 ABG pH ABG Total CO2 ABG O2 Saturation ABG O2 Content ABG Base Excess ABG Hemoglobin ABG Carboxyhemoglobin POC ABG HHb (Measured) ABG Methemoglobin ABG O2 Capacity Forrest Test A-a O2 Difference Hgb O2 Saturation Vent Mode Mechanical Rate FiO2 Tidal Volume PEEP Pressure Support CPAP Sodium 142 Potassium 3.9 Chloride 104 Carbon Dioxide 33 H Anion Gap 9 L BUN 27 H Creatinine 0.6 L Est GFR ( Amer) > 60 Est GFR (Non-Af Amer) > 60 POC Glucose (mg/dL) 167 H Random Glucose 142 H Calcium 8.1 L Vancomycin Trough 06/01/18 06/01/18 06/01/18 05:00 07:12 11:27 WBC RBC Hgb Hct MCV MCH MCHC RDW Plt Count pCO2 42 pO2 93 HCO3 36.7 H ABG pH 7.57 H ABG Total CO2 39.8 H ABG O2 Saturation 100.9 H ABG O2 Content 11.6 L ABG Base Excess 15.0 H ABG Hemoglobin 8.3 L ABG Carboxyhemoglobin 1.9 H POC ABG HHb (Measured) -0.9 L ABG Methemoglobin 1.3 ABG O2 Capacity 11.5 L Forrest Test Yes A-a O2 Difference 211.0 Hgb O2 Saturation 97.7 Vent Mode A/c Mechanical Rate 14 FiO2 50.0 Tidal Volume 500 PEEP 5 Pressure Support CPAP Sodium Potassium Chloride Carbon Dioxide Anion Gap BUN Creatinine Est GFR ( Amer) Est GFR (Non-Af Amer) POC Glucose (mg/dL) 134 H 135 H Random Glucose Calcium Vancomycin Trough 06/01/18 06/01/18 06/02/18 16:30 20:37 04:45 WBC RBC Hgb Hct MCV MCH MCHC RDW Plt Count pCO2 42 pO2 111 H HCO3 35.2 H ABG pH 7.55 H ABG Total CO2 38.0 H ABG O2 Saturation 100.0 H ABG O2 Content 14.1 L ABG Base Excess 13.1 H ABG Hemoglobin 10.2 L ABG Carboxyhemoglobin 1.5 POC ABG HHb (Measured) 0.0 ABG Methemoglobin 1.3 ABG O2 Capacity 14.1 L Forrest Test Yes A-a O2 Difference 122.0 Hgb O2 Saturation 97.2 Vent Mode Cpap Mechanical Rate FiO2 40.0 Tidal Volume PEEP Pressure Support 15 CPAP 5 Sodium Potassium Chloride Carbon Dioxide Anion Gap BUN Creatinine Est GFR ( Amer) Est GFR (Non-Af Amer) POC Glucose (mg/dL) 132 H 134 H Random Glucose Calcium Vancomycin Trough 06/02/18 06/02/18 06/02/18 05:50 06:00 06:00 WBC 10.7 RBC 2.96 L Hgb 8.0 L Hct 24.2 L MCV 81.7 MCH 27.0 MCHC 33.0 RDW 15.6 H Plt Count 240 pCO2 pO2 HCO3 ABG pH ABG Total CO2 ABG O2 Saturation ABG O2 Content ABG Base Excess ABG Hemoglobin ABG Carboxyhemoglobin POC ABG HHb (Measured) ABG Methemoglobin ABG O2 Capacity Forrest Test A-a O2 Difference Hgb O2 Saturation Vent Mode Mechanical Rate FiO2 Tidal Volume PEEP Pressure Support CPAP Sodium 139 Potassium 3.8 Chloride 97 L Carbon Dioxide 33 H Anion Gap 13 BUN 23 H Creatinine 0.5 L Est GFR ( Amer) > 60 Est GFR (Non-Af Amer) > 60 POC Glucose (mg/dL) Random Glucose 119 H Calcium 7.8 L Vancomycin Trough 16.7 H 06/02/18 06/02/18 06/02/18 06:17 11:14 16:47 WBC RBC Hgb Hct MCV MCH MCHC RDW Plt Count pCO2 pO2 HCO3 ABG pH ABG Total CO2 ABG O2 Saturation ABG O2 Content ABG Base Excess ABG Hemoglobin ABG Carboxyhemoglobin POC ABG HHb (Measured) ABG Methemoglobin ABG O2 Capacity Forrest Test A-a O2 Difference Hgb O2 Saturation Vent Mode Mechanical Rate FiO2 Tidal Volume PEEP Pressure Support CPAP Sodium Potassium Chloride Carbon Dioxide Anion Gap BUN Creatinine Est GFR ( Amer) Est GFR (Non-Af Amer) POC Glucose (mg/dL) 120 H 116 H 111 H Random Glucose Calcium Vancomycin Trough 06/02/18 06/03/18 06/03/18 20:56 03:59 04:50 WBC RBC Hgb Hct MCV MCH MCHC RDW Plt Count pCO2 37 pO2 94 HCO3 33.5 H ABG pH 7.57 H ABG Total CO2 35.0 H ABG O2 Saturation 100.8 H ABG O2 Content 11.4 L ABG Base Excess 11.0 H ABG Hemoglobin 8.2 L ABG Carboxyhemoglobin 2.0 H POC ABG HHb (Measured) -0.8 L ABG Methemoglobin 1.2 ABG O2 Capacity 11.3 L Forrest Test Yes A-a O2 Difference 145.0 Hgb O2 Saturation 97.5 Vent Mode Cpap Mechanical Rate FiO2 40.0 Tidal Volume PEEP Pressure Support 20 CPAP 5 Sodium Potassium Chloride Carbon Dioxide Anion Gap BUN Creatinine Est GFR ( Amer) Est GFR (Non-Af Amer) POC Glucose (mg/dL) 128 H Random Glucose Calcium Vancomycin Trough 13.9 H 06/03/18 06/03/18 06/03/18 04:50 04:50 06:01 WBC 12.8 H RBC 3.29 L Hgb 8.7 L Hct 27.2 L MCV 82.7 MCH 26.5 L MCHC 32.1 L RDW 16.0 H Plt Count 260 pCO2 pO2 HCO3 ABG pH ABG Total CO2 ABG O2 Saturation ABG O2 Content ABG Base Excess ABG Hemoglobin ABG Carboxyhemoglobin POC ABG HHb (Measured) ABG Methemoglobin ABG O2 Capacity Forrest Test A-a O2 Difference Hgb O2 Saturation Vent Mode Mechanical Rate FiO2 Tidal Volume PEEP Pressure Support CPAP Sodium 136 Potassium 4.1 Chloride 95 L Carbon Dioxide 31 H Anion Gap 14 BUN 22 H Creatinine 0.6 L Est GFR ( Amer) > 60 Est GFR (Non-Af Amer) > 60 POC Glucose (mg/dL) 141 H Random Glucose 115 H Calcium 7.9 L Vancomycin Trough 06/03/18 06/03/18 11:39 16:37 WBC RBC Hgb Hct MCV MCH MCHC RDW Plt Count pCO2 pO2 HCO3 ABG pH ABG Total CO2 ABG O2 Saturation ABG O2 Content ABG Base Excess ABG Hemoglobin ABG Carboxyhemoglobin POC ABG HHb (Measured) ABG Methemoglobin ABG O2 Capacity Forrest Test A-a O2 Difference Hgb O2 Saturation Vent Mode Mechanical Rate FiO2 Tidal Volume PEEP Pressure Support CPAP Sodium Potassium Chloride Carbon Dioxide Anion Gap BUN Creatinine Est GFR ( Amer) Est GFR (Non-Af Amer) POC Glucose (mg/dL) 154 H 128 H Random Glucose Calcium Vancomycin Trough Microbiology 05/31/18 12:44 Blood-Venous Blood Culture - Preliminary NO GROWTH AFTER 3 DAYS 05/31/18 12:34 Blood-Venous Blood Culture - Preliminary NO GROWTH AFTER 3 DAYS 05/28/18 05:00 Bronchial Washings Bronchial Culture - Final Renee Albicans 05/27/18 21:00 Blood-Venous Blood Culture - Final NO GROWTH AFTER 5 DAYS 05/27/18 21:00 Blood-Venous Gram Stain - Final TEST NOT PERFORMED 05/27/18 21:05 Blood-Venous Blood Culture - Final NO GROWTH AFTER 5 DAYS 05/27/18 21:05 Blood-Venous Gram Stain - Final TEST NOT PERFORMED 05/26/18 14:13 Blood-Venous Blood Culture - Final NO GROWTH AFTER 5 DAYS 05/26/18 14:13 Blood-Venous Gram Stain - Final TEST NOT PERFORMED 05/27/18 21:00 Trachasp Gram Stain - Final 05/27/18 21:00 Trachasp Sputum Culture - Final Yeast Species 05/24/18 14:15 Blood-Venous Blood Culture - Final NO GROWTH AFTER 5 DAYS 05/24/18 14:15 Blood-Venous Gram Stain - Final TEST NOT PERFORMED 05/24/18 14:00 Blood-Venous Blood Culture - Final NO GROWTH AFTER 5 DAYS 05/24/18 14:00 Blood-Venous Gram Stain - Final TEST NOT PERFORMED 05/27/18 21:00 Urine,Catheterized Urine Culture - Final No Growth (<1,000 CFU/ML) 05/24/18 15:00 Sputum Gram Stain - Final 05/24/18 15:00 Sputum Sputum Culture - Final Yeast Species 05/24/18 09:35 Urine,Catheterized Urine Culture - Final No Growth (<1,000 CFU/ML) 05/20/18 15:31 Blood-Venous Blood Culture - Final NO GROWTH AFTER 5 DAYS 05/20/18 15:31 Blood-Venous Gram Stain - Final TEST NOT PERFORMED 05/20/18 15:42 Blood-Venous Blood Culture - Final NO GROWTH AFTER 5 DAYS 05/20/18 15:42 Blood-Venous Gram Stain - Final TEST NOT PERFORMED 05/24/18 09:35 Naris MRSA Culture (Admit) - Final MRSA NOT DETECTED 05/21/18 16:57 Sputum Induced Gram Stain - Final 05/21/18 16:57 Sputum Induced Sputum Culture - Final Yeast Species 05/12/18 07:50 Blood Blood Culture - Final NO GROWTH AFTER 5 DAYS 05/12/18 07:50 Blood Gram Stain - Final TEST NOT PERFORMED 05/12/18 Unknown Blood Blood Culture - Final NO GROWTH AFTER 5 DAYS 05/12/18 Unknown Blood Gram Stain - Final TEST NOT PERFORMED 02/13/19 08:40 Urine,Catheterized Urine Culture - Final Escherichia Coli Assessment and Plan (1) Sepsis syndrome Status: Acute (2) Fever Status: Resolved (3) Hypoxemia Status: Chronic (4) Aspiration pneumonia Status: Acute - Assessment and Plan (Free Text) Assessment: A/P- 82 year old [place] resident male with dementia, admitted with fever initially and had UTI and ? asp pneumonia and was treated with IV antibiotiocs and was fever free and normal wbc and doing ok but few days ago had aspiration pneumonia and hypoxemic and rapid a.fib and is s/p intubation and in ICU. remains intubated and lethargic. new onset fever again today. slight rise in wbc today as well. cxr- right side infiltrates but improved compared to before. admission UA- Pos LE, neg Nitrates admission urine cx- E.Coli pansensitive- treated for this already blood cx- neg x 5 sputum cx- yeast BAL cx- C.Albicans PLan- advise to continue with IV meropenem and clindamycin for added anaerobic coverage.day #10. also advise to continue with IV fluconazole for yeast in sputum.day #8 continue with vanco for extra coverage for pneumonitis day #8, however keep trough <15. all labs and imaging and chart notes reviewed. critical care time spent 30 minutes.
--- NOTE | 2018-06-03 10:51 | CP.CCUPN ---
CCU Subjective - Physician Review Subjective (Free Text): No change in overall status, is not opening eyes spontaneously as previously, not interactive, not following any specific commands; on MV, breathing 20 on CPAP 5 PS 20, 40% oxygen over the past 2 days. NO RECURRENT FEVER spikes, but now with Ts in the 98-99F range. SBPs 130s, HR 60s sinus. Other vitals and I/O's reviewed. Fluid balance almost even last 24H. On OGT feed with Glucerna 45 ml/hr. ROS: No other pertinent negs or positives on 10+ system review obtainable due to sedation. PMSFH: All other Nursing and physician documentation reviewed to date; no new pertinent info noted relevant to current medical problems. EXAM- HEENT: no icterus, no gaze preference, pupils reactive, no nystagmus NECK: no JVD visible, supple, carotids equal upstroke bilat/no bruit CHEST: decreased BS at the bases, no wheezes audible HEART: regular, distant, S1S2, no rubs ABD: soft, no distension, no focal tenderness, no tympany, no guarding, no organomegaly, BS hypoactive. EXT: + LE edema, no mottling; no calf tenderness or palpable cords, distal pulses intact and symmetrical, no cyanosis, LUE midline catheter placed yesterday. NEURO: + tone, withdraws to pain x 4. SKIN: no rashes, warm and dry LABS: WBC= 12.8 HGB= 8.7 PLTs= 260K 7.57/37/94 Na= 136 K= 4.1 CL= 95 HCO3= 31 BUN/Cr= 22/0.6 BS= 115 CXR; (my interp) ETT position high above brianne, persistent R sided infiltrates, romain RUL. IMPRESSION / MAJOR PROBLEMS NOW: 1. Acute hypoxemic resp failure 2 Bilateral pneumonia 2. Severe Sepsis with Shock 2 #1, r/o Bacteremia, + E.coli UTI 3. s/p Paroxysmal A Fib with RVR 4. s/p Hyponatremia with Azotemia/ Dehydration 5. h/o Dementia PLAN: 1. Day #12 MV support, FIo2 at 40%. CXRs appear to be lagging behind patient. Mental status not amenable to further MV weans nor extubation. He has demonstrated no ability to self-protect airway. Keep on Pressure Support ventilation for now; settings adjusted to offset excessive alkalosis. 2. Re-position ETT 2 cm higher. 3. Remains on empiric abx / afx coverage ( Stacey, Clinda, Vanco, Diflucan). 4. Normalizing BUN / Cr today, decrease free water with serum Na levels down to 136 today. 5. May need discussion with son regarding Trach unless he refuses and wishes to go for terminal Extubation as he previously mentioned. CCU Objective - Vital Signs / Intake & Output Vital Signs (Last 4 hours): Vital Signs Temp Pulse Resp BP Pulse Ox 06/03/18 10:00 63 24 111/58 L 98 06/03/18 08:35 70 128/60 06/03/18 08:00 99.9 F H 70 14 128/60 97 Intake and Output (Last 8hrs): Intake & Output 06/02/18 06/03/18 06/03/18 22:59 06:59 14:59 Intake Total 588 590 480 Output Total 1400 1500 Balance -812 -910 480 Weight 163 lb 8 oz Intake: IV 8 10 Intake, Piggyback 100 100 100 Tube Feeding 480 480 180 Free Water Flush 200 Output: Urine 1400 1500 Urethral (Cerrato) 1400 1500 - Physical Exam Head: Positive for: Atraumatic, Normocephalic Pupils: Positive for: PERRL Extroacular Muscles: Positive for: EOMI Conjunctiva: Positive for: Normal. Negative for: Injected, Icteric Mouth: Positive for: Moist Mucous Membranes Neck: Positive for: Normal Range of Motion, Trachea Midline Respiratory/Chest: Positive for: Good Air Exchange, Rales, Rhonchi. Negative for: Respiratory Distress, Accessory Muscle Use, Wheezes Cardiovascular: Positive for: Regular Rate and Rhythm, Normal S1, S2. Negative for: Murmurs Abdomen: Positive for: Normal Bowel Sounds. Negative for: Tenderness, Distention - Medications Active Medications: Active Medications Generic Name Dose Route Start Last Admin Trade Name Freq PRN Reason Stop Dose Admin Acetaminophen 650 mg 05/26/18 20:45 05/31/18 10:03 Tylenol 650mg/20.3ml Solution Ud PO 650 mg Q4 PRN Administration Temperature Acetylcysteine 2 ml 05/17/18 16:00 06/03/18 07:59 Mucomyst 10% 4ml IH 2 ml RQ8 KEN Administration Alendronate Sodium 70 mg 05/21/18 09:00 05/21/18 10:29 Fosamax PO 70 mg FR KEN Administration Artificial Tears 2 drop 05/17/18 22:00 06/03/18 09:53 Artificial Tears OU 2 drop Q6 KEN Administration Calcium Carbonate 500 mg 05/17/18 17:00 05/21/18 10:26 Oscal PO 500 mg BID KEN Administration Cholecalciferol 1,000 intlu 05/17/18 17:00 05/21/18 10:27 Vitamin D PO 1,000 intlu BID KEN Administration Dimethicone 1 applic 05/20/18 17:00 06/03/18 08:37 Proshield Plus Skin Protectant TOP 1 applic Q8 KEN Administration Donepezil HCl 5 mg 05/17/18 22:00 05/20/18 21:28 Aricept PO 5 mg HS KEN Administration Enoxaparin Sodium 40 mg 05/31/18 09:45 06/03/18 08:36 Lovenox SC 40 mg DAILY KEN Administration Protocol Meropenem 1 gm/ Sodium 100 mls @ 100 mls/hr 05/27/18 11:15 06/03/18 08:39 Chloride IVPB 100 mls/hr Q8 KEN Administration Protocol Fluconazole 50 mls @ 50 mls/hr 05/28/18 14:00 06/02/18 14:44 Diflucan Iv 100 Mg/50 Ml Ns IVPB 50 mls/hr DAILY@1400 KEN Administration Protocol Ipratropium [place] 0.5 mg 05/24/18 16:00 06/03/18 07:58 Atrovent IH 0.5 mg RQ8 KEN Administration Memantine 5 mg 05/17/18 21:00 05/21/18 10:25 Namenda PO 5 mg Q12 KEN Administration Metoprolol Tartrate 50 mg 05/28/18 09:00 06/03/18 08:35 Lopressor PO 50 mg Q12 KEN Administration Multivitamins/Minerals 1 tab 05/18/18 09:00 05/21/18 10:27 Therapeutic-M Tab PO 1 tab DAILY KEN Administration Nystatin 1 applic 05/20/18 10:30 06/03/18 09:51 Nystop Topical Powder TOP 1 applic Q8H KEN Administration Pantoprazole Sodium 40 mg 05/24/18 10:30 06/03/18 08:37 Protonix Inj IVP 40 mg DAILY KEN Administration Senna/Docusate Sodium 1 tab 05/17/18 22:00 05/20/18 21:29 Senokot S 50 Mg-8.6 Mg PO 1 tab HS KEN Administration Tamsulosin HCl 0.4 mg 05/17/18 18:00 05/20/18 17:19 Flomax PO 0.4 mg QPM KEN Administration Vitamin A 1 ea 05/16/18 17:45 06/03/18 09:52 Vitamin A & D Oint Ud Foilpak TOP 1 ea BID KEN Administration - Patient Studies Lab Studies: Microbiology Studies 05/31/18 12:44 Blood Culture - Preliminary Blood-Venous NO GROWTH AFTER 48 HOURS 05/31/18 12:34 Blood Culture - Preliminary Blood-Venous NO GROWTH AFTER 48 HOURS 05/28/18 05:00 Bronchial Culture - Final Bronchial Washings Renee Albicans Lab Studies 06/03/18 06/03/18 06/03/18 Range/Units 06:01 04:50 04:50 WBC 12.8 H (4.8-10.8) K/uL RBC 3.29 L (4.40-5.90) Mil/uL Hgb 8.7 L (12.0-18.0) g/dL Hct 27.2 L (35.0-51.0) % MCV 82.7 (80.0-94.0) fl MCH 26.5 L (27.0-31.0) pg MCHC 32.1 L (33.0-37.0) g/dL RDW 16.0 H (11.5-14.5) % Plt Count 260 (130-400) K/uL pCO2 (35-45) mm/Hg pO2 (80-100) mm/Hg HCO3 (21-28) mmol/L ABG pH (7.35-7.45) ABG Total CO2 (22-28) mmol/L ABG O2 Saturation (95-98) % ABG O2 Content (15-23) ML/dL ABG Base Excess (-2.0-3.0) mmol/L ABG Hemoglobin (11.7-17.4) g/dL ABG Carboxyhemoglobin (0.5-1.5) % POC ABG HHb (Measured) (0.0-5.0) % ABG Methemoglobin (0.0-3.0) % ABG O2 Capacity (16-24) mL/dL Forrest Test A-a O2 Difference mm/Hg Hgb O2 Saturation (95.0-98.0) % Vent Mode FiO2 % Pressure Support CPAP Sodium 136 (132-148) mmol/l Potassium 4.1 (3.6-5.0) MMOL/L Chloride 95 L (98-107) mmol/L Carbon Dioxide 31 H (22-30) mmol/L Anion Gap 14 (10-20) BUN 22 H (9-20) mg/dl Creatinine 0.6 L (0.8-1.5) mg/dl Est GFR ( Amer) > 60 Est GFR (Non-Af Amer) > 60 POC Glucose (mg/dL) 141 H (65-110) mg/dL Random Glucose 115 H (75-110) mg/dL Calcium 7.9 L (8.4-10.2) mg/dL Vancomycin Trough (5.0-10.0) ug/mL 06/03/18 06/03/18 06/02/18 Range/Units 04:50 03:59 20:56 WBC (4.8-10.8) K/uL RBC (4.40-5.90) Mil/uL Hgb (12.0-18.0) g/dL Hct (35.0-51.0) % MCV (80.0-94.0) fl MCH (27.0-31.0) pg MCHC (33.0-37.0) g/dL RDW (11.5-14.5) % Plt Count (130-400) K/uL pCO2 37 (35-45) mm/Hg pO2 94 (80-100) mm/Hg HCO3 33.5 H (21-28) mmol/L ABG pH 7.57 H (7.35-7.45) ABG Total CO2 35.0 H (22-28) mmol/L ABG O2 Saturation 100.8 H (95-98) % ABG O2 Content 11.4 L (15-23) ML/dL ABG Base Excess 11.0 H (-2.0-3.0) mmol/L ABG Hemoglobin 8.2 L (11.7-17.4) g/dL ABG Carboxyhemoglobin 2.0 H (0.5-1.5) % POC ABG HHb (Measured) -0.8 L (0.0-5.0) % ABG Methemoglobin 1.2 (0.0-3.0) % ABG O2 Capacity 11.3 L (16-24) mL/dL Forrest Test Yes A-a O2 Difference 145.0 mm/Hg Hgb O2 Saturation 97.5 (95.0-98.0) % Vent Mode Cpap FiO2 40.0 % Pressure Support 20 CPAP 5 Sodium (132-148) mmol/l Potassium (3.6-5.0) MMOL/L Chloride (98-107) mmol/L Carbon Dioxide (22-30) mmol/L Anion Gap (10-20) BUN (9-20) mg/dl Creatinine (0.8-1.5) mg/dl Est GFR ( Amer) Est GFR (Non-Af Amer) POC Glucose (mg/dL) 128 H (65-110) mg/dL Random Glucose (75-110) mg/dL Calcium (8.4-10.2) mg/dL Vancomycin Trough 13.9 H (5.0-10.0) ug/mL 06/02/18 06/02/18 Range/Units 16:47 11:14 WBC (4.8-10.8) K/uL RBC (4.40-5.90) Mil/uL Hgb (12.0-18.0) g/dL Hct (35.0-51.0) % MCV (80.0-94.0) fl MCH (27.0-31.0) pg MCHC (33.0-37.0) g/dL RDW (11.5-14.5) % Plt Count (130-400) K/uL pCO2 (35-45) mm/Hg pO2 (80-100) mm/Hg HCO3 (21-28) mmol/L ABG pH (7.35-7.45) ABG Total CO2 (22-28) mmol/L ABG O2 Saturation (95-98) % ABG O2 Content (15-23) ML/dL ABG Base Excess (-2.0-3.0) mmol/L ABG Hemoglobin (11.7-17.4) g/dL ABG Carboxyhemoglobin (0.5-1.5) % POC ABG HHb (Measured) (0.0-5.0) % ABG Methemoglobin (0.0-3.0) % ABG O2 Capacity (16-24) mL/dL Forrest Test A-a O2 Difference mm/Hg Hgb O2 Saturation (95.0-98.0) % Vent Mode FiO2 % Pressure Support CPAP Sodium (132-148) mmol/l Potassium (3.6-5.0) MMOL/L Chloride (98-107) mmol/L Carbon Dioxide (22-30) mmol/L Anion Gap (10-20) BUN (9-20) mg/dl Creatinine (0.8-1.5) mg/dl Est GFR ( Amer) Est GFR (Non-Af Amer) POC Glucose (mg/dL) 111 H 116 H (65-110) mg/dL Random Glucose (75-110) mg/dL Calcium (8.4-10.2) mg/dL Vancomycin Trough (5.0-10.0) ug/mL Laboratory Results - last 24 hr 06/02/18 06/02/18 06/02/18 11:14 16:47 20:56 WBC RBC Hgb Hct MCV MCH MCHC RDW Plt Count pCO2 pO2 HCO3 ABG pH ABG Total CO2 ABG O2 Saturation ABG O2 Content ABG Base Excess ABG Hemoglobin ABG Carboxyhemoglobin POC ABG HHb (Measured) ABG Methemoglobin ABG O2 Capacity Forrest Test A-a O2 Difference Hgb O2 Saturation Vent Mode FiO2 Pressure Support CPAP Sodium Potassium Chloride Carbon Dioxide Anion Gap BUN Creatinine Est GFR ( Amer) Est GFR (Non-Af Amer) POC Glucose (mg/dL) 116 H 111 H 128 H Random Glucose Calcium Vancomycin Trough 06/03/18 06/03/18 06/03/18 03:59 04:50 04:50 WBC 12.8 H RBC 3.29 L Hgb 8.7 L Hct 27.2 L MCV 82.7 MCH 26.5 L MCHC 32.1 L RDW 16.0 H Plt Count 260 pCO2 37 pO2 94 HCO3 33.5 H ABG pH 7.57 H ABG Total CO2 35.0 H ABG O2 Saturation 100.8 H ABG O2 Content 11.4 L ABG Base Excess 11.0 H ABG Hemoglobin 8.2 L ABG Carboxyhemoglobin 2.0 H POC ABG HHb (Measured) -0.8 L ABG Methemoglobin 1.2 ABG O2 Capacity 11.3 L Forrest Test Yes A-a O2 Difference 145.0 Hgb O2 Saturation 97.5 Vent Mode Cpap FiO2 40.0 Pressure Support 20 CPAP 5 Sodium Potassium Chloride Carbon Dioxide Anion Gap BUN Creatinine Est GFR ( Amer) Est GFR (Non-Af Amer) POC Glucose (mg/dL) Random Glucose Calcium Vancomycin Trough 13.9 H 06/03/18 06/03/18 04:50 06:01 WBC RBC Hgb Hct MCV MCH MCHC RDW Plt Count pCO2 pO2 HCO3 ABG pH ABG Total CO2 ABG O2 Saturation ABG O2 Content ABG Base Excess ABG Hemoglobin ABG Carboxyhemoglobin POC ABG HHb (Measured) ABG Methemoglobin ABG O2 Capacity Forrest Test A-a O2 Difference Hgb O2 Saturation Vent Mode FiO2 Pressure Support CPAP Sodium 136 Potassium 4.1 Chloride 95 L Carbon Dioxide 31 H Anion Gap 14 BUN 22 H Creatinine 0.6 L Est GFR ( Amer) > 60 Est GFR (Non-Af Amer) > 60 POC Glucose (mg/dL) 141 H Random Glucose 115 H Calcium 7.9 L Vancomycin Trough Radiology Impressions: Radiology Impressions Chest X-Ray 06/02/18 04:00 IMPRESSION: No interval improvement in scattered right upper greater than lower lobe and possible middle lobe infiltrates. No pulmonary vascular congestion. Fingerstick Blood Sugar Results: 141 Critical Care Progress Note - Nutrition Nutrition: Nutrition Category Date Time Status NPO Diet [DIET] Diets 05/27/18 Dinner Active
--- NOTE | 2018-06-03 12:27 | RAD ---
Date of service: 06/03/2018 PROCEDURE: CHEST RADIOGRAPH, 1 VIEW HISTORY: Intubated COMPARISON: 06/02/2018 FINDINGS: LUNGS: Abnormal right apical opacity unchanged from prior. PLEURA: No pneumothorax or pleural fluid seen. CARDIOVASCULAR: ET tube tip appears to be at the level of the thoracic inlet. Consider repositioning. NG tube unchanged. There is atherosclerotic calcification of the thoracic aorta. Normal heart size. No congestive change. OSSEOUS STRUCTURES: No significant abnormalities. VISUALIZED UPPER ABDOMEN: Normal. OTHER FINDINGS: None. IMPRESSION: ET tube tip at the level of the thoracic inlet. Consider repositioning. The findings were discussed by telephone with the nurse, Jeniffer, in the ICU, at 12:20 p.m. on 06/03/2018.
[2018-06-03] MEDS: Acetaminophen 650mg/20.3ml solution UD PO PRN (12:58)
--- NOTE | 2018-06-03 12:58 | CP.PCM.PN ---
Subjective - Date & Time of Evaluation Date of Evaluation: 06/03/18 Time of Evaluation: 10:15 - Subjective Subjective: F/U Respiratory Failure Minimal response to tactile, stimuli, on CPAP PS x 2 days. Objective - Vital Signs/Intake and Output Vital Signs (last 24 hours): Temp Pulse Resp BP Pulse Ox 100.4 F H 64 17 124/64 95 06/03/18 12:00 06/03/18 12:00 06/03/18 12:00 06/03/18 12:00 06/03/18 12:00 Intake and Output: 06/03/18 06/03/18 06:59 18:59 Intake Total 838 480 Output Total 1500 Balance -662 480 - Medications Medications: Current Medications Acetaminophen (Tylenol 650mg/20.3ml Solution Ud) 650 mg PO Q4 PRN PRN Reason: Temperature Last Admin: 05/31/18 10:03 Dose: 650 mg Acetylcysteine (Mucomyst 10% 4ml) 2 ml IH RQ8 KEN Last Admin: 06/03/18 07:59 Dose: 2 ml Alendronate Sodium (Fosamax) 70 mg PO FR KEN Last Admin: 05/21/18 10:29 Dose: 70 mg Artificial Tears (Artificial Tears) 2 drop OU Q6 KEN Last Admin: 06/03/18 09:53 Dose: 2 drop Calcium Carbonate (Oscal) 500 mg PO BID KEN Last Admin: 05/21/18 10:26 Dose: 500 mg Cholecalciferol (Vitamin D) 1,000 intlu PO BID KEN Last Admin: 05/21/18 10:27 Dose: 1,000 intlu Dimethicone (Proshield Plus Skin Protectant) 1 applic TOP Q8 KEN Last Admin: 06/03/18 08:37 Dose: 1 applic Donepezil HCl (Aricept) 5 mg PO HS KEN Last Admin: 05/20/18 21:28 Dose: 5 mg Enoxaparin Sodium (Lovenox) 40 mg SC DAILY [facility]; Protocol Last Admin: 06/03/18 08:36 Dose: 40 mg Meropenem 1 gm/ Sodium (Chloride) 100 mls @ 100 mls/hr IVPB Q8 KEN; Protocol Last Admin: 06/03/18 08:39 Dose: 100 mls/hr Fluconazole (Diflucan Iv 100 Mg/50 Ml Ns) 50 mls @ 50 mls/hr IVPB DAILY@1400 KEN; Protocol Last Admin: 06/02/18 14:44 Dose: 50 mls/hr Ipratropium [place] (Atrovent) 0.5 mg IH RQ8 [facility] Last Admin: 06/03/18 07:58 Dose: 0.5 mg Memantine (Namenda) 5 mg PO Q12 [facility] Last Admin: 05/21/18 10:25 Dose: 5 mg Metoprolol Tartrate (Lopressor) 50 mg PO Q12 [facility] Last Admin: 06/03/18 08:35 Dose: 50 mg Multivitamins/Minerals (Therapeutic-M Tab) 1 tab PO DAILY [facility] Last Admin: 05/21/18 10:27 Dose: 1 tab Nystatin (Nystop Topical Powder) 1 applic TOP Q8H [facility] Last Admin: 06/03/18 09:51 Dose: 1 applic Pantoprazole Sodium (Protonix Inj) 40 mg IVP DAILY [facility] Last Admin: 06/03/18 08:37 Dose: 40 mg Senna/Docusate Sodium (Senokot S 50 Mg-8.6 Mg) 1 tab PO HS [facility] Last Admin: 05/20/18 21:29 Dose: 1 tab Tamsulosin HCl (Flomax) 0.4 mg PO QPM [facility] Last Admin: 05/20/18 17:19 Dose: 0.4 mg Vitamin A (Vitamin A & D Oint Ud Foilpak) 1 ea TOP BID [facility] Last Admin: 06/03/18 09:52 Dose: 1 ea - Labs Labs: 06/03/18 04:50 06/03/18 04:50 PT 15.7 Seconds (9.8-13.1) H 05/12/18 07:50 INR 1.4 05/12/18 07:50 APTT 34.4 Seconds (25.6-37.1) 05/12/18 07:50 - Constitutional Appears: Chronically Ill - Head Exam Head Exam: NORMAL INSPECTION - ENT Exam Additional comments: Intubated, OGT - Neck Exam Neck Exam: Normal Inspection - Respiratory Exam Respiratory Exam: Decreased Breath Sounds (at bases), Rhonchi (scattered) - Cardiovascular Exam Cardiovascular Exam: REGULAR RHYTHM - GI/Abdominal Exam GI & Abdominal Exam: Soft, Normal Bowel Sounds - Exam Additional comments: Cerrato Cath - Extremities Exam Additional comments: Edema on extremities - Back Exam Additional comments: Sacral ulcer - Neurological Exam Additional comments: Intubated, no response to verbal or tactile stimuli. - Skin Skin Exam: Warm Assessment and Plan (1) Respiratory failure Status: Acute (2) Aspiration pneumonia Status: Acute (3) E. 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 Critical care time: 33 min.
[2018-06-03] MEDS: Fluconazole IV 100mg/50 ml NS 50 ML IVPB SCH (13:53)
[2018-06-04] MEDS: Meropenem 1 GM in Sodium Chloride 0.9% 100 ML IVPB SCH ×3 (00:03→16:12)
[2018-06-04] MEDS: Proshield Plus GEL TOP SCH ×3 (00:03→16:25)
[2018-06-04] MEDS: Artificial Tears Opht Soln OU SCH ×5 (04:51→21:18)
[2018-06-04 05:15] LABS: ABG ALLEN TEST YES; ARTERIAL BLOOD GAS HCO3 32.9 mmol/L (21-28); ARTERIAL BLOOD GAS HEMOGLOBIN 8.1 g/dL (11.7-17.4); ARTERIAL BLOOD GAS O2 CAPACITY 11.2 mL/dL (16-24); ARTERIAL BLOOD GAS O2 CONTENT 11.3 ML/dL (15-23); ARTERIAL BLOOD GAS O2 SAT 100.8 % (95-98); ARTERIAL BLOOD GAS PCO2 34 mm/Hg (35-45); ARTERIAL BLOOD GAS PH 7.59 (7.35-7.45); ARTERIAL BLOOD GAS PO2 85 mm/Hg (80-100); ARTERIAL BLOOD GAS TCO2 33.6 mmol/L (22-28)
[2018-06-04] MEDS: Ipratropium 0.02% Inhal Soln (0.5 mg/2.5 ml) UD IH SCH ×2 (07:21→15:00)
[2018-06-04] MEDS: Acetylcysteine 10% 4 ML IH SCH ×2 (07:22→15:00)
[2018-06-04 07:25] LABS: BLOOD UREA NITROGEN 21 mg/dl (9-20); GFR NON-AFRICAN AMERICAN > 60
[2018-06-04 07:31] LABS: HEMOGLOBIN 8.4 g/dL (12.0-18.0); MEAN CELL VOLUME 81.4 fl (80.0-94.0); MEAN CORPUSCULAR HEMOGLOBIN 26.5 pg (27.0-31.0); MEAN CORPUSCULAR HGB CONC 32.5 g/dL (33.0-37.0); RBC 3.18 Mil/uL (4.40-5.90); RED CELL DISTRIBUTION WIDTH 15.7 % (11.5-14.5); WHITE BLOOD COUNT 11.2 K/uL (4.8-10.8)
--- NOTE | 2018-06-04 08:01 | RAD ---
Date of service: 06/04/2018 HISTORY: ETT placement COMPARISON: Portable chest 06/03/2018 4:40 a.m.. FINDINGS: LUNGS: Endotracheal and nasogastric tubes are identified once again with NG tube unchanged and endotracheal tube terminating the superior margins of the clavicles. This is relatively high a 10.5 cm above the brianne. Advancing the tube 3-4 cm antegrade is recommended follow-up by confirmation radiography. Bilateral skin folds are again seen in the periphery of the mid to inferior bilateral lung zone simulating pneumothoraces. Right apical infiltrate not significantly changed. PLEURA: No significant pleural effusion identified, no pneumothorax apparent. CARDIOVASCULAR: No aortic atherosclerotic calcification present. Normal cardiac size. No pulmonary vascular congestion. OSSEOUS STRUCTURES: No significant abnormalities. VISUALIZED UPPER ABDOMEN: Normal. OTHER FINDINGS: None. IMPRESSION: Stable right upper lobe infiltrate. High positioning of endotracheal tube remains with advancement several cm antegrade advised follow-up by confirmation radiography. Findings discussed with Cl at ICU with written down and read back verification 06/04/2018 7:53 a.m..
[2018-06-04] MEDS: Enoxaparin 40 mg Syringe SC SCH (08:33)
[2018-06-04] MEDS: Vitamins A & D Oint UD Foilpak TOP SCH ×2 (08:34→16:25)
--- NOTE | 2018-06-04 09:30 | CP.PCM.PN ---
Subjective - Date & Time of Evaluation Date of Evaluation: 06/04/18 Time of Evaluation: 09:29 - Subjective Subjective: ID note- Pt. seen and examined today in ICU. remains intubated and lethargic. Objective - Vital Signs/Intake and Output Vital Signs (last 24 hours): Temp Pulse Resp BP Pulse Ox 99.5 F 75 26 H 138/67 97 06/04/18 08:00 06/04/18 08:00 06/04/18 08:00 06/04/18 08:00 06/04/18 08:00 Intake and Output: 06/04/18 06/04/18 06:59 18:59 Intake Total 1210 260 Output Total 2250 Balance -1040 260 - Medications Medications: Current Medications Acetaminophen (Tylenol 650mg/20.3ml Solution Ud) 650 mg PO Q4 PRN PRN Reason: Temperature Last Admin: 06/03/18 12:58 Dose: 650 mg Acetylcysteine (Mucomyst 10% 4ml) 2 ml IH RQ8 [facility] Last Admin: 06/04/18 07:22 Dose: 2 ml Alendronate Sodium (Fosamax) 70 mg PO FR [facility] Last Admin: 05/21/18 10:29 Dose: 70 mg Artificial Tears (Artificial Tears) 2 drop OU Q6 [facility] Last Admin: 06/04/18 04:51 Dose: 2 drop Calcium Carbonate (Oscal) 500 mg PO BID [facility] Last Admin: 05/21/18 10:26 Dose: 500 mg Cholecalciferol (Vitamin D) 1,000 intlu PO BID [facility] Last Admin: 05/21/18 10:27 Dose: 1,000 intlu Dimethicone (Proshield Plus Skin Protectant) 1 applic TOP Q8 [facility] Last Admin: 06/04/18 00:03 Dose: 1 applic Donepezil HCl (Aricept) 5 mg PO HS [facility] Last Admin: 05/20/18 21:28 Dose: 5 mg Enoxaparin Sodium (Lovenox) 40 mg SC DAILY [facility]; Protocol Last Admin: 06/04/18 08:33 Dose: 40 mg Meropenem 1 gm/ Sodium (Chloride) 100 mls @ 100 mls/hr IVPB Q8 [facility]; Protocol Last Admin: 06/04/18 08:31 Dose: 100 mls/hr Fluconazole (Diflucan Iv 100 Mg/50 Ml Ns) 50 mls @ 50 mls/hr IVPB DAILY@1400 [facility]; Protocol Last Admin: 06/03/18 13:53 Dose: 50 mls/hr Vancomycin HCl 750 mg/ Sodium (Chloride) 250 mls @ 166.667 mls/hr IVPB Q12 [facility]; Protocol Last Admin: 06/03/18 22:00 Dose: 166.667 mls/hr Ipratropium [place] (Atrovent) 0.5 mg IH RQ8 [facility] Last Admin: 06/04/18 07:21 Dose: 0.5 mg Memantine (Namenda) 5 mg PO Q12 [facility] Last Admin: 05/21/18 10:25 Dose: 5 mg Metoprolol Tartrate (Lopressor) 50 mg PO Q12 [facility] Last Admin: 06/03/18 20:10 Dose: 50 mg Multivitamins/Minerals (Therapeutic-M Tab) 1 tab PO DAILY [facility] Last Admin: 05/21/18 10:27 Dose: 1 tab Nystatin (Nystop Topical Powder) 1 applic TOP Q8H [facility] Last Admin: 06/04/18 02:24 Dose: 1 applic Pantoprazole Sodium (Protonix Inj) 40 mg IVP DAILY [facility] Last Admin: 06/04/18 08:32 Dose: 40 mg Senna/Docusate Sodium (Senokot S 50 Mg-8.6 Mg) 1 tab PO HS [facility] Last Admin: 05/20/18 21:29 Dose: 1 tab Tamsulosin HCl (Flomax) 0.4 mg PO QPM [facility] Last Admin: 05/20/18 17:19 Dose: 0.4 mg Vitamin A (Vitamin A & D Oint Ud Foilpak) 1 ea TOP BID [facility] Last Admin: 06/04/18 08:34 Dose: 1 ea - Labs Labs: - Additional Findings Additional findings: - Constitutional Appears: Chronically Ill - ENT Exam Additional comments: ET tube in place - Respiratory Exam Additional comments: breath souns heard b/l is on the vent - Cardiovascular Exam Cardiovascular Exam: Tachycardia, +S1, +S2 - GI/Abdominal Exam GI & Abdominal Exam: Soft, Normal Bowel Sounds Additional comments: ND, NT - Extremities Exam Extremities Exam: Normal Inspection - Neurological Exam Additional comments: Intubated and lethargic Laboratory Results - last 72 hr 06/01/18 06/01/18 06/02/18 16:30 20:37 04:45 WBC RBC Hgb Hct MCV MCH MCHC RDW Plt Count pCO2 42 pO2 111 H HCO3 35.2 H ABG pH 7.55 H ABG Total CO2 38.0 H ABG O2 Saturation 100.0 H ABG O2 Content 14.1 L ABG Base Excess 13.1 H ABG Hemoglobin 10.2 L ABG Carboxyhemoglobin 1.5 POC ABG HHb (Measured) 0.0 ABG Methemoglobin 1.3 ABG O2 Capacity 14.1 L Forrest Test Yes A-a O2 Difference 122.0 Hgb O2 Saturation 97.2 Vent Mode Cpap FiO2 40.0 PEEP Pressure Support 15 CPAP 5 Sodium Potassium Chloride Carbon Dioxide Anion Gap BUN Creatinine Est GFR ( Amer) Est GFR (Non-Af Amer) POC Glucose (mg/dL) 132 H 134 H Random Glucose Calcium Vancomycin Trough 06/02/18 06/02/18 06/02/18 05:50 06:00 06:00 WBC 10.7 RBC 2.96 L Hgb 8.0 L Hct 24.2 L MCV 81.7 MCH 27.0 MCHC 33.0 RDW 15.6 H Plt Count 240 pCO2 pO2 HCO3 ABG pH ABG Total CO2 ABG O2 Saturation ABG O2 Content ABG Base Excess ABG Hemoglobin ABG Carboxyhemoglobin POC ABG HHb (Measured) ABG Methemoglobin ABG O2 Capacity Forrest Test A-a O2 Difference Hgb O2 Saturation Vent Mode FiO2 PEEP Pressure Support CPAP Sodium 139 Potassium 3.8 Chloride 97 L Carbon Dioxide 33 H Anion Gap 13 BUN 23 H Creatinine 0.5 L Est GFR ( Amer) > 60 Est GFR (Non-Af Amer) > 60 POC Glucose (mg/dL) Random Glucose 119 H Calcium 7.8 L Vancomycin Trough 16.7 H 06/02/18 06/02/18 06/02/18 06:17 11:14 16:47 WBC RBC Hgb Hct MCV MCH MCHC RDW Plt Count pCO2 pO2 HCO3 ABG pH ABG Total CO2 ABG O2 Saturation ABG O2 Content ABG Base Excess ABG Hemoglobin ABG Carboxyhemoglobin POC ABG HHb (Measured) ABG Methemoglobin ABG O2 Capacity Forrest Test A-a O2 Difference Hgb O2 Saturation Vent Mode FiO2 PEEP Pressure Support CPAP Sodium Potassium Chloride Carbon Dioxide Anion Gap BUN Creatinine Est GFR ( Amer) Est GFR (Non-Af Amer) POC Glucose (mg/dL) 120 H 116 H 111 H Random Glucose Calcium Vancomycin Trough 06/02/18 06/03/18 06/03/18 20:56 03:59 04:50 WBC RBC Hgb Hct MCV MCH MCHC RDW Plt Count pCO2 37 pO2 94 HCO3 33.5 H ABG pH 7.57 H ABG Total CO2 35.0 H ABG O2 Saturation 100.8 H ABG O2 Content 11.4 L ABG Base Excess 11.0 H ABG Hemoglobin 8.2 L ABG Carboxyhemoglobin 2.0 H POC ABG HHb (Measured) -0.8 L ABG Methemoglobin 1.2 ABG O2 Capacity 11.3 L Forrest Test Yes A-a O2 Difference 145.0 Hgb O2 Saturation 97.5 Vent Mode Cpap FiO2 40.0 PEEP Pressure Support 20 CPAP 5 Sodium Potassium Chloride Carbon Dioxide Anion Gap BUN Creatinine Est GFR ( Amer) Est GFR (Non-Af Amer) POC Glucose (mg/dL) 128 H Random Glucose Calcium Vancomycin Trough 13.9 H 06/03/18 06/03/18 06/03/18 04:50 04:50 06:01 WBC 12.8 H RBC 3.29 L Hgb 8.7 L Hct 27.2 L MCV 82.7 MCH 26.5 L MCHC 32.1 L RDW 16.0 H Plt Count 260 pCO2 pO2 HCO3 ABG pH ABG Total CO2 ABG O2 Saturation ABG O2 Content ABG Base Excess ABG Hemoglobin ABG Carboxyhemoglobin POC ABG HHb (Measured) ABG Methemoglobin ABG O2 Capacity Forrest Test A-a O2 Difference Hgb O2 Saturation Vent Mode FiO2 PEEP Pressure Support CPAP Sodium 136 Potassium 4.1 Chloride 95 L Carbon Dioxide 31 H Anion Gap 14 BUN 22 H Creatinine 0.6 L Est GFR ( Amer) > 60 Est GFR (Non-Af Amer) > 60 POC Glucose (mg/dL) 141 H Random Glucose 115 H Calcium 7.9 L Vancomycin Trough 06/03/18 06/03/18 06/03/18 11:39 16:37 20:51 WBC RBC Hgb Hct MCV MCH MCHC RDW Plt Count pCO2 pO2 HCO3 ABG pH ABG Total CO2 ABG O2 Saturation ABG O2 Content ABG Base Excess ABG Hemoglobin ABG Carboxyhemoglobin POC ABG HHb (Measured) ABG Methemoglobin ABG O2 Capacity Forrest Test A-a O2 Difference Hgb O2 Saturation Vent Mode FiO2 PEEP Pressure Support CPAP Sodium Potassium Chloride Carbon Dioxide Anion Gap BUN Creatinine Est GFR ( Amer) Est GFR (Non-Af Amer) POC Glucose (mg/dL) 154 H 128 H 135 H Random Glucose Calcium Vancomycin Trough 06/04/18 06/04/18 06/04/18 04:51 06:00 06:00 WBC 11.2 H RBC 3.18 L Hgb 8.4 L Hct 25.9 L MCV 81.4 MCH 26.5 L MCHC 32.5 L RDW 15.7 H Plt Count 273 pCO2 34 L pO2 85 HCO3 32.9 H ABG pH 7.59 H ABG Total CO2 33.6 H ABG O2 Saturation 100.8 H ABG O2 Content 11.3 L ABG Base Excess 10.2 H ABG Hemoglobin 8.1 L ABG Carboxyhemoglobin 2.1 H POC ABG HHb (Measured) -0.8 L ABG Methemoglobin 1.0 ABG O2 Capacity 11.2 L Forrest Test Yes A-a O2 Difference 158.0 Hgb O2 Saturation 97.7 Vent Mode Cpap FiO2 40.0 PEEP 5 Pressure Support 12 CPAP Sodium 136 Potassium 4.1 Chloride 98 Carbon Dioxide 31 H Anion Gap 11 BUN 21 H Creatinine 0.5 L Est GFR ( Amer) > 60 Est GFR (Non-Af Amer) > 60 POC Glucose (mg/dL) Random Glucose 101 Calcium 8.0 L Vancomycin Trough 06/04/18 06/04/18 06/04/18 06:27 11:46 16:29 WBC RBC Hgb Hct MCV MCH MCHC RDW Plt Count pCO2 pO2 HCO3 ABG pH ABG Total CO2 ABG O2 Saturation ABG O2 Content ABG Base Excess ABG Hemoglobin ABG Carboxyhemoglobin POC ABG HHb (Measured) ABG Methemoglobin ABG O2 Capacity Forrest Test A-a O2 Difference Hgb O2 Saturation Vent Mode FiO2 PEEP Pressure Support CPAP Sodium Potassium Chloride Carbon Dioxide Anion Gap BUN Creatinine Est GFR ( Amer) Est GFR (Non-Af Amer) POC Glucose (mg/dL) 123 H 125 H 146 H Random Glucose Calcium Vancomycin Trough Microbiology 05/31/18 12:44 Blood-Venous Blood Culture - Preliminary NO GROWTH AFTER 4 DAYS 05/31/18 12:34 Blood-Venous Blood Culture - Preliminary NO GROWTH AFTER 4 DAYS 05/28/18 05:00 Bronchial Washings Bronchial Culture - Final Renee Albicans 05/27/18 21:00 Blood-Venous Blood Culture - Final NO GROWTH AFTER 5 DAYS 05/27/18 21:00 Blood-Venous Gram Stain - Final TEST NOT PERFORMED 05/27/18 21:05 Blood-Venous Blood Culture - Final NO GROWTH AFTER 5 DAYS 05/27/18 21:05 Blood-Venous Gram Stain - Final TEST NOT PERFORMED 05/26/18 14:13 Blood-Venous Blood Culture - Final NO GROWTH AFTER 5 DAYS 05/26/18 14:13 Blood-Venous Gram Stain - Final TEST NOT PERFORMED 05/27/18 21:00 Trachasp Gram Stain - Final 05/27/18 21:00 Trachasp Sputum Culture - Final Yeast Species 05/24/18 14:15 Blood-Venous Blood Culture - Final NO GROWTH AFTER 5 DAYS 05/24/18 14:15 Blood-Venous Gram Stain - Final TEST NOT PERFORMED 05/24/18 14:00 Blood-Venous Blood Culture - Final NO GROWTH AFTER 5 DAYS 05/24/18 14:00 Blood-Venous Gram Stain - Final TEST NOT PERFORMED 05/27/18 21:00 Urine,Catheterized Urine Culture - Final No Growth (<1,000 CFU/ML) 05/24/18 15:00 Sputum Gram Stain - Final 05/24/18 15:00 Sputum Sputum Culture - Final Yeast Species 05/24/18 09:35 Urine,Catheterized Urine Culture - Final No Growth (<1,000 CFU/ML) 05/20/18 15:31 Blood-Venous Blood Culture - Final NO GROWTH AFTER 5 DAYS 05/20/18 15:31 Blood-Venous Gram Stain - Final TEST NOT PERFORMED 05/20/18 15:42 Blood-Venous Blood Culture - Final NO GROWTH AFTER 5 DAYS 05/20/18 15:42 Blood-Venous Gram Stain - Final TEST NOT PERFORMED 05/24/18 09:35 Naris MRSA Culture (Admit) - Final MRSA NOT DETECTED 05/21/18 16:57 Sputum Induced Gram Stain - Final 05/21/18 16:57 Sputum Induced Sputum Culture - Final Yeast Species 05/12/18 07:50 Blood Blood Culture - Final NO GROWTH AFTER 5 DAYS 05/12/18 07:50 Blood Gram Stain - Final TEST NOT PERFORMED 05/12/18 Unknown Blood Blood Culture - Final NO GROWTH AFTER 5 DAYS 05/12/18 Unknown Blood Gram Stain - Final TEST NOT PERFORMED 05/12/18 08:40 Urine,Catheterized Urine Culture - Final Escherichia Coli Assessment and Plan (1) Sepsis syndrome Status: Acute (2) Fever Status: Resolved (3) Hypoxemia Status: Chronic (4) Aspiration pneumonia Status: Acute - Assessment and Plan (Free Text) Assessment: A/P- 82 year old [place] resident male with dementia, admitted with fever initially and had UTI and ? asp pneumonia and was treated with IV antibiotiocs and was fever free and normal wbc and doing ok but few days ago had aspiration pneumonia and hypoxemic and rapid a.fib and is s/p intubation and in ICU. remains intubated and lethargic. afebrile today. wbc trending down today to almost normal value. cxr- right side infiltrates but improved compared to before. admission UA- Pos LE, neg Nitrates admission urine cx- E.Coli pansensitive- treated for this already blood cx- neg x 5 sputum cx- yeast BAL cx- C.Albicans PLan- advise to continue with IV meropenem and clindamycin for added anaerobic coverage.day #11. also advise to continue with IV fluconazole for yeast in sputum.day #9 continue with vanco for extra coverage for pneumonitis day #9, however keep trough <15. advise 1 more day of vanco. all labs and imaging and chart notes reviewed. critical care time spent 30 minutes.
--- NOTE | 2018-06-04 11:16 | CP.CCUPN ---
CCU Subjective - Physician Review Subjective (Free Text): No change in overall status, but when son is at the bedside, he respond to his voice, tries to lift LUE, but does not open eyes nor look at him. Remains on MV, breathing 19 on CPAP 5 PS 20, 40% oxygen over the past several days. No high FEVER spikes, but Ts in the 99F range. SBPs 120-130s, HR 60s sinus. Other vitals and I/O's reviewed. Fluid balance negative last 24H. On OGT feed with Glucerna 45 ml/hr. ROS: No other pertinent negs or positives on 10+ system review obtainable due to lethargic status. PMSFH: All other Nursing and physician documentation reviewed to date; no new pertinent info noted relevant to current medical problems. EXAM- HEENT: no icterus, no gaze preference, pupils reactive, no nystagmus NECK: no JVD visible, supple, carotids equal upstroke bilat/no bruit CHEST: decreased BS at the bases, no wheezes audible HEART: regular, distant, S1S2, no rubs ABD: soft, no distension, no focal tenderness, no tympany, no guarding, no organomegaly, BS hypoactive. EXT: + LE edema, no mottling; no calf tenderness or palpable cords, distal pulses intact and symmetrical, no cyanosis, LUE midline catheter placed yesterday. NEURO: + tone, withdraws to pain x 4. SKIN: no rashes, warm and dry LABS: WBC= 11.2 HGB= 8.4 PLTs= 273K 7.59/34/85 Na= 136 K= 4.1 CL= 98 HCO3= 31 BUN/Cr= 21/0.5 BS= 101 CXR; (my interp) ETT position high above brianne, persistent R sided infiltrates, romain RUL. IMPRESSION / MAJOR PROBLEMS NOW: 1. Acute hypoxemic resp failure 2 Bilateral pneumonia 2. Severe Sepsis with Shock 2 #1, r/o Bacteremia, + E.coli UTI 3. s/p Paroxysmal A Fib with RVR 4. s/p Hyponatremia with Azotemia/ Dehydration 5. h/o Dementia PLAN: 1. Day #13 MV support, FIo2 at 40%. CXRs lagging behind patient. Mental status not amenable to further MV weans nor extubation. He has demonstrated no ability to self-protect airway. Keep on Pressure Support ventilation for now; settings adjusted to offset excessive alkalosis, bjt not improved. Discussed with Pulm / PMD, will place on T-Piece as tolerated and repeat ABG. 2. Re-position ETT 3 cm lower. 3. Remains on empiric abx / afx coverage ( Stacey, Clinda, Vanco, Diflucan). 4. May need discussion with son regarding Trach unless he refuses and wishes to go for terminal Extubation as he previously mentioned. He states PMD has yet to discuss Trach with him.
--- NOTE | 2018-06-04 11:24 | CP.PCM.PN ---
Subjective - Date & Time of Evaluation Date of Evaluation: 06/04/18 Time of Evaluation: 11:24 - Subjective Subjective: no overnight events Objective - Vital Signs/Intake and Output Vital Signs (last 24 hours): Temp Pulse Resp BP Pulse Ox 99.5 F 68 24 125/54 L 98 06/04/18 08:00 06/04/18 10:00 06/04/18 10:00 06/04/18 10:00 06/04/18 10:00 Intake and Output: 06/04/18 06/04/18 06:59 18:59 Intake Total 1210 730 Output Total 2250 Balance -1040 730 - Medications Medications: Current Medications Acetaminophen (Tylenol 650mg/20.3ml Solution Ud) 650 mg PO Q4 PRN PRN Reason: Temperature Last Admin: 06/03/18 12:58 Dose: 650 mg Acetylcysteine (Mucomyst 10% 4ml) 2 ml IH RQ8 [facility] Last Admin: 06/04/18 07:22 Dose: 2 ml Alendronate Sodium (Fosamax) 70 mg PO FR [facility] Last Admin: 05/21/18 10:29 Dose: 70 mg Artificial Tears (Artificial Tears) 2 drop OU Q6 [facility] Last Admin: 06/04/18 04:51 Dose: 2 drop Calcium Carbonate (Oscal) 500 mg PO BID [facility] Last Admin: 05/21/18 10:26 Dose: 500 mg Cholecalciferol (Vitamin D) 1,000 intlu PO BID [facility] Last Admin: 05/21/18 10:27 Dose: 1,000 intlu Dimethicone (Proshield Plus Skin Protectant) 1 applic TOP Q8 [facility] Last Admin: 06/04/18 00:03 Dose: 1 applic Donepezil HCl (Aricept) 5 mg PO HS [facility] Last Admin: 05/20/18 21:28 Dose: 5 mg Enoxaparin Sodium (Lovenox) 40 mg SC DAILY [facility]; Protocol Last Admin: 06/04/18 08:33 Dose: 40 mg Meropenem 1 gm/ Sodium (Chloride) 100 mls @ 100 mls/hr IVPB Q8 [facility]; Protocol Last Admin: 06/04/18 08:31 Dose: 100 mls/hr Fluconazole (Diflucan Iv 100 Mg/50 Ml Ns) 50 mls @ 50 mls/hr IVPB DAILY@1400 [facility]; Protocol Last Admin: 06/03/18 13:53 Dose: 50 mls/hr Vancomycin HCl 750 mg/ Sodium (Chloride) 250 mls @ 166.667 mls/hr IVPB Q12 [facility]; Protocol Last Admin: 06/04/18 09:51 Dose: 166.667 mls/hr Ipratropium [place] (Atrovent) 0.5 mg IH RQ8 [facility] Last Admin: 06/04/18 07:21 Dose: 0.5 mg Memantine (Namenda) 5 mg PO Q12 [facility] Last Admin: 05/21/18 10:25 Dose: 5 mg Metoprolol Tartrate (Lopressor) 50 mg PO Q12 [facility] Last Admin: 06/03/18 20:10 Dose: 50 mg Multivitamins/Minerals (Therapeutic-M Tab) 1 tab PO DAILY [facility] Last Admin: 05/21/18 10:27 Dose: 1 tab Pantoprazole Sodium (Protonix Inj) 40 mg IVP DAILY [facility] Last Admin: 06/04/18 08:32 Dose: 40 mg Senna/Docusate Sodium (Senokot S 50 Mg-8.6 Mg) 1 tab PO HS [facility] Last Admin: 05/20/18 21:29 Dose: 1 tab Tamsulosin HCl (Flomax) 0.4 mg PO QPM [facility] Last Admin: 05/20/18 17:19 Dose: 0.4 mg Vitamin A (Vitamin A & D Oint Ud Foilpak) 1 ea TOP BID [facility] Last Admin: 06/04/18 08:34 Dose: 1 ea - Labs Labs: 06/04/18 06:00 06/04/18 06:00 PT 15.7 Seconds (9.8-13.1) H 05/12/18 07:50 INR 1.4 05/12/18 07:50 APTT 34.4 Seconds (25.6-37.1) 05/12/18 07:50 - Head Exam Head Exam: NORMOCEPHALIC - Respiratory Exam Respiratory Exam: Rhonchi, NORMAL BREATHING PATTERN - Cardiovascular Exam Cardiovascular Exam: REGULAR RHYTHM - GI/Abdominal Exam GI & Abdominal Exam: Soft, Normal Bowel Sounds Assessment and Plan - Assessment and Plan (Free Text) Assessment: 82 yo male with sepsis cont tube feed prognosis guarded
[2018-06-04] MEDS: Fluconazole IV 100mg/50 ml NS 50 ML IVPB SCH (13:07)
--- NOTE | 2018-06-04 13:25 | PQF ---
PROVIDER RESPONSE TEXT: Stage 2 Pressure Ulcer : Sacrum REVIEWER QUERY TEXT: Pressure Ulcer Type Pressure ulcer is documented in the Medical Record. Please specify the location of the pressure ulce r: -- Other -- Clinically unable to determine -- Unknown 05/24 Wound RN: Stage 2 PI right sacrum 06/01 Wound RN: Left sacral wound Stage of each pressure ulcer (National Pressure Ulcer Advisory Panel definitions): -- Stage I: Intact skin with non-blanchable redness of a localized area -- Stage II: Partial thickness skin loss involving dermis with a shallow open ulcer or an open serum -filled blister -- Stage III: Full thickness skin loss involving damage or necrosis of subcutaneous tissue -- Stage IV: Full thickness skin loss with exposed bone, tendon or muscle -- Unstageable: Full thickness tissue loss in which the base of the ulcer is covered by slough and/o r eschar in the wound bed The patient's Clinical Indicators include: --- Query created by: Brisa Pizano on 06/03/2018 2:58 PM Electronically signed by: Ramiro Hernández MD 06/04/2018 1:22 PM
--- NOTE | 2018-06-04 14:44 | CP.PCM.PN ---
Subjective - Date & Time of Evaluation Date of Evaluation: 06/04/18 Time of Evaluation: 12:00 - Subjective Subjective: F/U Respiratory failure minimal response to tactil, verbal stimuli Objective - Vital Signs/Intake and Output Vital Signs (last 24 hours): Temp Pulse Resp BP Pulse Ox 99.2 F 66 14 111/44 L 99 06/04/18 14:00 06/04/18 14:00 06/04/18 14:00 06/04/18 14:00 06/04/18 14:00 Intake and Output: 06/04/18 06/04/18 06:59 18:59 Intake Total 1210 1170 Output Total 2250 1999 Balance -1040 -830 - Medications Medications: Current Medications Acetaminophen (Tylenol 650mg/20.3ml Solution Ud) 650 mg PO Q4 PRN PRN Reason: Temperature Last Admin: 06/03/18 12:58 Dose: 650 mg Acetylcysteine (Mucomyst 10% 4ml) 2 ml IH RQ8 [facility] Last Admin: 06/04/18 07:22 Dose: 2 ml Alendronate Sodium (Fosamax) 70 mg PO FR [facility] Last Admin: 05/21/18 10:29 Dose: 70 mg Artificial Tears (Artificial Tears) 2 drop OU Q6 [facility] Last Admin: 06/04/18 11:57 Dose: 2 drop Calcium Carbonate (Oscal) 500 mg PO BID [facility] Last Admin: 05/21/18 10:26 Dose: 500 mg Cholecalciferol (Vitamin D) 1,000 intlu PO BID [facility] Last Admin: 05/21/18 10:27 Dose: 1,000 intlu Dimethicone (Proshield Plus Skin Protectant) 1 applic TOP Q8 [facility] Last Admin: 06/04/18 00:03 Dose: 1 applic Donepezil HCl (Aricept) 5 mg PO HS [facility] Last Admin: 05/20/18 21:28 Dose: 5 mg Enoxaparin Sodium (Lovenox) 40 mg SC DAILY [facility]; Protocol Last Admin: 06/04/18 08:33 Dose: 40 mg Meropenem 1 gm/ Sodium (Chloride) 100 mls @ 100 mls/hr IVPB Q8 [facility]; Protocol Last Admin: 06/04/18 08:31 Dose: 100 mls/hr Fluconazole (Diflucan Iv 100 Mg/50 Ml Ns) 50 mls @ 50 mls/hr IVPB DAILY@1400 [facility]; Protocol Last Admin: 06/04/18 13:07 Dose: 50 mls/hr Vancomycin HCl 750 mg/ Sodium (Chloride) 250 mls @ 166.667 mls/hr IVPB Q12 [facility]; Protocol Last Admin: 06/04/18 09:51 Dose: 166.667 mls/hr Ipratropium [place] (Atrovent) 0.5 mg IH RQ8 [facility] Last Admin: 06/04/18 07:21 Dose: 0.5 mg Memantine (Namenda) 5 mg PO Q12 [facility] Last Admin: 05/21/18 10:25 Dose: 5 mg Metoprolol Tartrate (Lopressor) 50 mg PO Q12 [facility] Last Admin: 06/04/18 09:00 Dose: 50 mg Multivitamins/Minerals (Therapeutic-M Tab) 1 tab PO DAILY [facility] Last Admin: 05/21/18 10:27 Dose: 1 tab Pantoprazole Sodium (Protonix Inj) 40 mg IVP DAILY [facility] Last Admin: 06/04/18 08:32 Dose: 40 mg Senna/Docusate Sodium (Senokot S 50 Mg-8.6 Mg) 1 tab PO HS [facility] Last Admin: 05/20/18 21:29 Dose: 1 tab Tamsulosin HCl (Flomax) 0.4 mg PO QPM [facility] Last Admin: 05/20/18 17:19 Dose: 0.4 mg Vitamin A (Vitamin A & D Oint Ud Foilpak) 1 ea TOP BID [facility] Last Admin: 06/04/18 08:34 Dose: 1 ea - Labs Labs: 06/04/18 06:00 06/04/18 06:00 PT 15.7 Seconds (9.8-13.1) H 05/12/18 07:50 INR 1.4 05/12/18 07:50 APTT 34.4 Seconds (25.6-37.1) 05/12/18 07:50 - Constitutional Appears: Chronically Ill - Head Exam Head Exam: NORMAL INSPECTION - Eye Exam Eye Exam: PERRL - ENT Exam Additional comments: Intubated. T Piece, OGT - Neck Exam Neck Exam: Normal Inspection - Respiratory Exam Respiratory Exam: Decreased Breath Sounds (at bases), Rhonchi (scattered) - Cardiovascular Exam Cardiovascular Exam: REGULAR RHYTHM - GI/Abdominal Exam GI & Abdominal Exam: Soft, Normal Bowel Sounds - Extremities Exam Additional comments: Edema extremities - Back Exam Additional comments: Sacral ulcer - Neurological Exam Additional comments: Intubated, minimal response to tactile, verbal stimuli. - Skin Skin Exam: Warm Assessment and Plan (1) Respiratory failure Status: Acute (2) Aspiration pneumonia Status: Acute (3) E. coli UTI Status: Acute (4) Fever Status: Resolved (5) Sepsis syndrome Status: Acute (6) Hypoxemia Status: Chronic (7) Esophageal dilatation Status: Chronic (8) Dementia Status: Chronic (9) HTN (hypertension) Status: Chronic (10) DMII (diabetes mellitus, type 2) Status: Chronic - Assessment and Plan (Free Text) Plan: continue Henry Rudoplh Vanco, DuoNeb, on T Piece, intubated day No# [id number], will discuss with Pt's son Tracheostomy vs extubation Critical care time: 32 min.
[2018-06-04] MEDS: Acetaminophen 650mg/20.3ml solution UD PO PRN (21:18)
[2018-06-05] MEDS: Acetylcysteine 10% 4 ML IH SCH ×4 (00:55→23:42)
[2018-06-05] MEDS: Ipratropium 0.02% Inhal Soln (0.5 mg/2.5 ml) UD IH SCH ×4 (00:55→23:42)
[2018-06-05] MEDS: Meropenem 1 GM in Sodium Chloride 0.9% 100 ML IVPB SCH ×3 (01:15→16:37)
[2018-06-05 04:37] LABS: ABG ALLEN TEST YES; ARTERIAL BLOOD GAS HCO3 32.8 mmol/L (21-28); ARTERIAL BLOOD GAS HEMOGLOBIN 8.4 g/dL (11.7-17.4); ARTERIAL BLOOD GAS O2 CAPACITY 11.7 mL/dL (16-24); ARTERIAL BLOOD GAS O2 CONTENT 11.8 ML/dL (15-23); ARTERIAL BLOOD GAS PCO2 38 mm/Hg (35-45); ARTERIAL BLOOD GAS PH 7.55 (7.35-7.45); ARTERIAL BLOOD GAS PO2 101 mm/Hg (80-100); ARTERIAL BLOOD GAS TCO2 34.4 mmol/L (22-28)
[2018-06-05 05:52] LABS: BASO % 0.2 % (0.0-2.0); EOS # 0.2 K/uL (0.0-0.7); EOS % 1.9 % (0.0-4.0); HEMOGLOBIN 8.7 g/dL (12.0-18.0); LYMPH # 0.9 K/uL (1.0-4.3); LYMPH % 7.4 % (20.0-40.0); MEAN CELL VOLUME 81.6 fl (80.0-94.0); MEAN CORPUSCULAR HEMOGLOBIN 27.1 pg (27.0-31.0); MEAN CORPUSCULAR HGB CONC 33.2 g/dL (33.0-37.0); MEAN PLATELET VOLUME 9.4 fl (7.2-11.7); MONO # 0.7 K/uL (0.0-0.8); MONO % 6.2 % (0.0-10.0); NEUT # 9.7 K/uL (1.8-7.0); NEUT % 84.3 % (50.0-75.0); PLATELET COUNT 299 K/uL (130-400); RED CELL DISTRIBUTION WIDTH 15.9 % (11.5-14.5); WHITE BLOOD COUNT 11.6 K/uL (4.8-10.8)
[2018-06-05 06:02] LABS: BLOOD UREA NITROGEN 19 mg/dl (9-20); CALCIUM 8.1 mg/dL (8.4-10.2); GFR NON-AFRICAN AMERICAN > 60
[2018-06-05 08:34] LABS: ANISOCYTOSIS SLIGHT; BANDS 1 % (0-2); EOSINOPHIL 2 % (0-7); HYPOCHROMIC SLIGHT; LYMPHOCYTE 7 % (20-50); MONOCYTE 5 % (0-10); MYELOCYTE 1 % (0-0); NEUTROPHIL 84 % (42-75); OVALOCYTES SLIGHT; PLATELET ESTIMATE NORMAL (NORMAL); SCHISTOCYTES SLIGHT; TEARDROP CELLS SLIGHT; TOTAL CELLS COUNTED 100
[2018-06-05] MEDS: Enoxaparin 40 mg Syringe SC SCH (08:34)
[2018-06-05 08:35] LABS: LARGE PLATELETS PRESENT
[2018-06-05] MEDS: Vitamins A & D Oint UD Foilpak TOP SCH ×2 (08:36→16:38)
[2018-06-05] MEDS: Artificial Tears Opht Soln OU SCH ×3 (11:46→21:13)
[2018-06-05] MEDS: Fluconazole IV 100mg/50 ml NS 50 ML IVPB SCH (14:34)
--- NOTE | 2018-06-05 15:58 | CP.PCM.PN ---
Subjective - Date & Time of Evaluation Date of Evaluation: 06/05/18 Time of Evaluation: 11:30 - Subjective Subjective: F/U Respiratory failure Ptwith open eyes to tactile stimuli, attempt to move his hands but not obeys commands. Objective - Vital Signs/Intake and Output Vital Signs (last 24 hours): Temp Pulse Resp BP Pulse Ox 99.3 F 74 24 141/63 100 06/05/18 12:00 06/05/18 14:00 06/05/18 14:00 06/05/18 14:00 06/05/18 14:00 Intake and Output: 06/05/18 06/05/18 06:59 18:59 Intake Total 1286 970 Output Total 1700 1250 Balance -414 -280 - Medications Medications: Current Medications Acetaminophen (Tylenol 650mg/20.3ml Solution Ud) 650 mg PO Q4 PRN PRN Reason: Temperature Last Admin: 06/04/18 21:18 Dose: 650 mg Acetylcysteine (Mucomyst 10% 4ml) 2 ml IH RQ8 KEN Last Admin: 06/05/18 15:05 Dose: 2 ml Alendronate Sodium (Fosamax) 70 mg PO FR KEN Last Admin: 05/21/18 10:29 Dose: 70 mg Artificial Tears (Artificial Tears) 2 drop OU Q6 KEN Last Admin: 06/05/18 11:46 Dose: 2 drop Calcium Carbonate (Oscal) 500 mg PO BID KEN Last Admin: 05/21/18 10:26 Dose: 500 mg Cholecalciferol (Vitamin D) 1,000 intlu PO BID KEN Last Admin: 05/21/18 10:27 Dose: 1,000 intlu Donepezil HCl (Aricept) 5 mg PO HS KEN Last Admin: 05/20/18 21:28 Dose: 5 mg Meropenem 1 gm/ Sodium (Chloride) 100 mls @ 100 mls/hr IVPB Q8 KEN; Protocol Last Admin: 06/05/18 08:34 Dose: 100 mls/hr Fluconazole (Diflucan Iv 100 Mg/50 Ml Ns) 50 mls @ 50 mls/hr IVPB DAILY@1400 KEN; Protocol Last Admin: 06/05/18 14:34 Dose: 50 mls/hr Vancomycin HCl 750 mg/ Sodium (Chloride) 250 mls @ 166.667 mls/hr IVPB Q12 KEN; Protocol Last Admin: 06/05/18 08:35 Dose: 166.667 mls/hr Ipratropium [place] (Atrovent) 0.5 mg IH RQ8 [facility] Last Admin: 06/05/18 15:05 Dose: 0.5 mg Memantine (Namenda) 5 mg PO Q12 [facility] Last Admin: 05/21/18 10:25 Dose: 5 mg Metoprolol Tartrate (Lopressor) 50 mg PO Q12 [facility] Last Admin: 06/05/18 08:33 Dose: 50 mg Multivitamins/Minerals (Therapeutic-M Tab) 1 tab PO DAILY [facility] Last Admin: 05/21/18 10:27 Dose: 1 tab Pantoprazole Sodium (Protonix Inj) 40 mg IVP DAILY [facility] Last Admin: 06/05/18 08:35 Dose: 40 mg Senna/Docusate Sodium (Senokot S 50 Mg-8.6 Mg) 1 tab PO HS [facility] Last Admin: 05/20/18 21:29 Dose: 1 tab Tamsulosin HCl (Flomax) 0.4 mg PO QPM [facility] Last Admin: 05/20/18 17:19 Dose: 0.4 mg Vitamin A (Vitamin A & D Oint Ud Foilpak) 1 ea TOP BID [facility] Last Admin: 06/05/18 08:36 Dose: 1 ea - Labs Labs: 06/05/18 04:45 06/05/18 04:45 PT 15.7 Seconds (9.8-13.1) H 05/12/18 07:50 INR 1.4 05/12/18 07:50 APTT 34.4 Seconds (25.6-37.1) 05/12/18 07:50 - Constitutional Appears: Chronically Ill - Head Exam Head Exam: NORMAL INSPECTION - Eye Exam Eye Exam: PERRL - ENT Exam Additional comments: Intubated, T Piece, OGT - Neck Exam Neck Exam: Normal Inspection - Respiratory Exam Respiratory Exam: Decreased Breath Sounds (at bases), Rhonchi (scattered) - Cardiovascular Exam Cardiovascular Exam: REGULAR RHYTHM - GI/Abdominal Exam GI & Abdominal Exam: Soft, Normal Bowel Sounds - Extremities Exam Additional comments: Edema extremities. - Back Exam Additional comments: Sacral ulcer - Neurological Exam Additional comments: Intubated, minimal response to tactile stimuli, verbal stimuli - Skin Skin Exam: Warm Assessment and Plan (1) Respiratory failure Status: Acute (2) Aspiration pneumonia Status: Acute (3) E. coli UTI Status: Acute (4) Fever Status: Resolved (5) Sepsis syndrome Status: Acute (6) Hypoxemia Status: Chronic (7) Esophageal dilatation Status: Chronic (8) Dementia Status: Chronic (9) HTN (hypertension) Status: Chronic (10) DMII (diabetes mellitus, type 2) Status: Chronic - Assessment and Plan (Free Text) Plan: Pt remain lethargic, Pt will need Tracheostomy and Peg tube, Pt's son will think it over, He is considering extubation. Critical care time: 30 min.
--- NOTE | 2018-06-05 18:05 | PN ---
DATE: 06/05/2018 CRITICAL CARE PROGRESS NOTE LOCATION: The patient in ICU, Bed 434. TIME SPENT: 35 minutes. SUBJECTIVE: The patient is seen and evaluated at the bedside. Past medical, surgical, family and social history reviewed. An 82-year-old male [facility] resident, admitted for evaluation after being found to be febrile. Past medical history is significant for advanced dementia, bed bound, hypertension and diet controlled diabetes mellitus type 2. On admission, urine was positive for UTI with E. coli. He was seen by ID consult, started on meropenem. While in telemetry floor, the patient developed rapid atrial fibrillation, worsening of mental status, and hypertension. [employer]ION [employer]ICER called. Treated with digoxin, Cardizem, and IV fluid and admitted to ICU. Overnight, remains lethargic; off ventilatory support, on T-Piece 40%, saturating over 94%. No significant improvement in mental status. NG feeding in progress since clinically unable to protect his airway and high risk for aspiration. PHYSICAL EXAMINATION: VITAL SIGNS: Temperature 97.9, heart rate 67 to 75, blood pressure 120/57, mean arterial pressure 78, respiratory rate 20 to 27, thoracoabdominal. Intake 2996 and output 4200, negative balance 1204. Weight 165 pounds. HEAD, EYES, EARS, NOSE AND THROAT: Pupils are equal, round, reactive to light and accommodation. Extraocular muscles intact. Conjunctivae pale. Sclerae white. NECK: Supple. CHEST: Bilateral breath sounds diminished in intensity. Scattered rhonchi. Adventitious sounds transmitted from upper airway. HEART: Rhythm regular. S1, S2 normal. ABDOMEN: Bowel sounds present. Soft. EXTREMITIES: Trace edema. Heel protection in place to prevent foot drop. CURRENT MEDICATIONS: Tylenol 650 every 4 hours p.r.n., Mucomyst 10% 2 mL via nebulizer every 8 hours, Fosamax 70 mg once a week on hold, Artificial Tears, Os-Jigar 500 mg p.o./NG tube b.i.d., vitamin D 1000 units p.o./NG b.i.d., Aricept 5 mg p.o. at bedtime, Lovenox 40 mg subcu daily, fluconazole 100 mg IV daily, Atrovent 0.5 mg every 8 hours, Namenda 5 mg every 12 hours, meropenem 1 g IV every 8 hours, Lopressor 50 mg p.o. every 12 hours, multivitamin 1 tablet p.o. daily, Protonix 40 IV daily, Senokot 1 tablet p.o. at bedtime, Flomax 0.4 mg every evening, vancomycin 750 mg IV every 12 hours, vitamin A and D one each topically twice daily. LABORATORY DATA: WBC 11.6, hemoglobin 8.7, hematocrit 26.1, platelet count 299, neutrophils 84.3, lymphocytes 7.4, monocytes 6.2. PT 15.7, INR 1.4, PTT 34.4. ABG, pH 7.55, pCO2 38, pO2 101 on FIO2 of 40%. SMA-7: Sodium 130, potassium 4, chloride 100, CO2 of 31, blood urea nitrogen 90, creatinine 0.6, random glucose 108, calcium 8.1. Urine analysis repeated on 05/24/2018; rbc 46, urine bacteria rare, hyaline casts 3 to 5, wbc clumps many. Vanco trough level 13.9. Serology, Mycoplasma pneumonia IgM negative. Urine Legionella pneumonia antigen negative. Microbiology bronchial washing, Renee albicans. Sputum culture, yeast species. Positive blood culture, no growth reported. Chest x-ray on 06/04/2018 showed stable right upper lobe infiltrate, high positioning with endotracheal tube remains with advancement several centimeters antegrade. IMPRESSION: 1. Neurologic: Underlying dementia, status post aspiration pneumonia with hypoxic respiratory failure, hypoxic septic encephalopathy, off the ventilator, unable to protect the airway, high risk for aspiration pneumonia. 2. Respiratory: Status post hypoxic respiratory failure, bilateral aspiration pneumonia, high risk for recurrent aspiration. Continue . 3. Cardiac: History of hypertension. Antihypertensive medications on hold. Blood pressure is in the acceptable range. 4. Hematology. Leukocytosis secondary to ongoing aspiration. Anemia of chronic disease, platelet count are normal. 5. Gastrointestinal: Dilated lumen in the esophagus with air-fluid level seen by GI. Given poor prognosis, no further intervention recommended. 6. Endocrinology: Maintaining blood sugar between 90 to 110 . The orogastric tube and nasogastric tube are in place. Continue feeding as tolerated. Keep head of bed 30 degrees up. Awaiting the patient's mental status to improve and then see whether we would be able to extubate. Jose Stevens MD [facility] # [id number]
[2018-06-05] MEDS: Acetaminophen 650mg/20.3ml solution UD PO PRN (21:16)
[2018-06-06] MEDS: Meropenem 1 GM in Sodium Chloride 0.9% 100 ML IVPB SCH ×3 (01:27→16:30)
[2018-06-06] MEDS: Artificial Tears Opht Soln OU SCH ×4 (03:27→21:00)
[2018-06-06 06:04] LABS: BASO # 0.1 K/uL (0.0-0.2); BASO % 0.6 % (0.0-2.0); EOS # 0.2 K/uL (0.0-0.7); EOS % 1.3 % (0.0-4.0); HEMOGLOBIN 9.3 g/dL (12.0-18.0); LYMPH # 0.8 K/uL (1.0-4.3); LYMPH % 5.6 % (20.0-40.0); MEAN CELL VOLUME 82.8 fl (80.0-94.0); MEAN CORPUSCULAR HEMOGLOBIN 26.7 pg (27.0-31.0); MEAN CORPUSCULAR HGB CONC 32.2 g/dL (33.0-37.0); MONO # 0.9 K/uL (0.0-0.8); MONO % 6.4 % (0.0-10.0); NEUT % 86.1 % (50.0-75.0); NRBC % 0.2 % (0.0-0.0); RBC 3.49 Mil/uL (4.40-5.90); RED CELL DISTRIBUTION WIDTH 16.4 % (11.5-14.5)
[2018-06-06 06:32] LABS: ALB/GLOB RATIO 0.7 (1.0-2.1); ALBUMIN 2.9 g/dL (3.5-5.0); ALT/SGPT 36 U/L (21-72); AST/SGOT 30 U/L (17-59); BLOOD UREA NITROGEN 21 mg/dl (9-20); CALCIUM 8.3 mg/dL (8.4-10.2); GFR NON-AFRICAN AMERICAN > 60
[2018-06-06] MEDS: Ipratropium 0.02% Inhal Soln (0.5 mg/2.5 ml) UD IH SCH ×2 (07:07→15:01)
[2018-06-06] MEDS: Acetylcysteine 10% 4 ML IH SCH ×2 (07:07→15:02)
--- NOTE | 2018-06-06 07:45 | CP.CCUPN ---
CCU Subjective - Physician Review Events Since Last Encounter (Free Text): Patient on T piece with O2 supplement, opens eyes occasionally, no fever, no pressors, events reviewed CCU Objective - Vital Signs / Intake & Output Vital Signs (Last 4 hours): Vital Signs Temp Pulse Resp BP Pulse Ox 06/06/18 04:00 99.5 F 72 28 H 164/50 H 99 Intake and Output (Last 8hrs): Intake & Output 06/05/18 06/06/18 06/06/18 21:59 06:59 14:59 Intake Total Output Total Balance Weight Intake: IV Intake, Piggyback Tube Feeding Free Water Flush Output: Urine Urethral (Cerrato) Other: # Bowel Movements - Physical Exam Head: Positive for: Atraumatic, Normocephalic Pupils: Positive for: PERRL Conjunctiva: Positive for: Normal. Negative for: Injected, Icteric Mouth: Positive for: Moist Mucous Membranes Neck: Positive for: Normal Range of Motion, Trachea Midline Respiratory/Chest: Positive for: Good Air Exchange, Rales, Rhonchi. Negative for: Respiratory Distress, Accessory Muscle Use, Wheezes Cardiovascular: Positive for: Regular Rate and Rhythm, Normal S1, S2. Negative for: Murmurs Abdomen: Positive for: Normal Bowel Sounds. Negative for: Tenderness, Distention Neurological: Positive for: Other (opens eyes occasionally) - Medications Active Medications: Active Medications Generic Name Dose Route Start Last Admin Trade Name Freq PRN Reason Stop Dose Admin Acetaminophen 650 mg 05/26/18 20:45 06/05/18 21:16 Tylenol 650mg/20.3ml Solution Ud PO 650 mg Q4 PRN Administration Temperature Acetylcysteine 2 ml 05/17/18 16:00 06/06/18 07:07 Mucomyst 10% 4ml IH 2 ml RQ8 KEN Administration Alendronate Sodium 70 mg 05/21/18 09:00 05/21/18 10:29 Fosamax PO 70 mg FR EKN Administration Artificial Tears 2 drop 05/17/18 22:00 06/06/18 03:27 Artificial Tears OU 2 drop Q6 KEN Administration Calcium Carbonate 500 mg 05/17/18 17:00 05/21/18 10:26 Oscal PO 500 mg BID KEN Administration Cholecalciferol 1,000 intlu 05/17/18 17:00 05/21/18 10:27 Vitamin D PO 1,000 intlu BID KEN Administration Donepezil HCl 5 mg 05/17/18 22:00 05/20/18 21:28 Aricept PO 5 mg HS KEN Administration Meropenem 1 gm/ Sodium 100 mls @ 100 mls/hr 05/27/18 11:15 06/06/18 01:27 Chloride IVPB 100 mls/hr Q8 KEN Administration Protocol Fluconazole 50 mls @ 50 mls/hr 05/28/18 14:00 06/05/18 14:34 Diflucan Iv 100 Mg/50 Ml Ns IVPB 50 mls/hr DAILY@1400 KEN Administration Protocol Vancomycin HCl 750 mg/ Sodium 250 mls @ 166.667 mls/hr 06/03/18 21:00 06/05/18 21:13 Chloride IVPB 166.667 mls/hr Q12 KEN Administration Protocol Ipratropium [place] 0.5 mg 05/24/18 16:00 06/06/18 07:07 Atrovent IH 0.5 mg RQ8 KEN Administration Memantine 5 mg 05/17/18 21:00 05/21/18 10:25 Namenda PO 5 mg Q12 KEN Administration Metoprolol Tartrate 50 mg 05/28/18 09:00 06/05/18 21:13 Lopressor PO 50 mg Q12 KEN Administration Multivitamins/Minerals 1 tab 05/18/18 09:00 05/21/18 10:27 Therapeutic-M Tab PO 1 tab DAILY KEN Administration Pantoprazole Sodium 40 mg 05/24/18 10:30 06/05/18 08:35 Protonix Inj IVP 40 mg DAILY KEN Administration Senna/Docusate Sodium 1 tab 05/17/18 22:00 05/20/18 21:29 Senokot S 50 Mg-8.6 Mg PO 1 tab HS KEN Administration Tamsulosin HCl 0.4 mg 05/17/18 18:00 05/20/18 17:19 Flomax PO 0.4 mg QPM KEN Administration Vitamin A 1 ea 05/16/18 17:45 06/05/18 16:38 Vitamin A & D Oint Ud Foilpak TOP 1 ea BID KEN Administration - Patient Studies Lab Studies: Microbiology Studies 05/31/18 12:34 Blood Culture - Final Blood-Venous NO GROWTH AFTER 5 DAYS Gram Stain - Final TEST NOT PERFORMED 05/31/18 12:44 Blood Culture - Final Blood-Venous NO GROWTH AFTER 5 DAYS Gram Stain - Final TEST NOT PERFORMED Lab Studies 06/06/18 06/06/18 06/06/18 Range/Units 05:01 04:30 04:30 WBC 14.0 H (4.8-10.8) K/uL RBC 3.49 L (4.40-5.90) Mil/uL Hgb 9.3 L (12.0-18.0) g/dL Hct 28.9 L (35.0-51.0) % MCV 82.8 (80.0-94.0) fl MCH 26.7 L (27.0-31.0) pg MCHC 32.2 L (33.0-37.0) g/dL RDW 16.4 H (11.5-14.5) % Plt Count 343 (130-400) K/uL MPV 10.0 (7.2-11.7) fl Neut % (Auto) 86.1 H (50.0-75.0) % Lymph % (Auto) 5.6 L (20.0-40.0) % [place] % (Auto) 6.4 (0.0-10.0) % Eos % (Auto) 1.3 (0.0-4.0) % Baso % (Auto) 0.6 (0.0-2.0) % Neut # (Auto) 12.0 H (1.8-7.0) K/uL Lymph # (Auto) 0.8 L (1.0-4.3) K/uL [place] # (Auto) 0.9 H (0.0-0.8) K/uL Eos # (Auto) 0.2 (0.0-0.7) K/uL Baso # (Auto) 0.1 (0.0-0.2) K/uL Neutrophils % (Manual) (42-75) % Band Neutrophils % (0-2) % Lymphocytes % (Manual) (20-50) % Monocytes % (Manual) (0-10) % Eosinophils % (Manual) (0-7) % Myelocytes % (0-0) % Platelet Estimate (NORMAL) Large Platelets Hypochromasia (manual) Anisocytosis (manual) Tear Drop Cells Ovalocytes Schistocytes Sodium 138 (132-148) mmol/l Potassium 4.2 (3.6-5.0) MMOL/L Chloride 99 (98-107) mmol/L Carbon Dioxide 31 H (22-30) mmol/L Anion Gap 12 (10-20) BUN 21 H (9-20) mg/dl Creatinine 0.6 L (0.8-1.5) mg/dl Est GFR ( Amer) > 60 Est GFR (Non-Af Amer) > 60 POC Glucose (mg/dL) 154 H (65-110) mg/dL Random Glucose 142 H (75-110) mg/dL Calcium 8.3 L (8.4-10.2) mg/dL Total Bilirubin 0.5 (0.2-1.3) mg/dl AST 30 (17-59) U/L ALT 36 (21-72) U/L Alkaline Phosphatase 101 (38-126) U/L Total Protein 6.9 (6.3-8.2) G/DL Albumin 2.9 L D (3.5-5.0) g/dL Globulin 3.9 (2.2-3.9) gm/dL Albumin/Globulin Ratio 0.7 L (1.0-2.1) 06/05/18 06/05/18 06/05/18 Range/Units 21:20 16:26 11:28 WBC (4.8-10.8) K/uL RBC (4.40-5.90) Mil/uL Hgb (12.0-18.0) g/dL Hct (35.0-51.0) % MCV (80.0-94.0) fl MCH (27.0-31.0) pg MCHC (33.0-37.0) g/dL RDW (11.5-14.5) % Plt Count (130-400) K/uL MPV (7.2-11.7) fl Neut % (Auto) (50.0-75.0) % Lymph % (Auto) (20.0-40.0) % [place] % (Auto) (0.0-10.0) % Eos % (Auto) (0.0-4.0) % Baso % (Auto) (0.0-2.0) % Neut # (Auto) (1.8-7.0) K/uL Lymph # (Auto) (1.0-4.3) K/uL [place] # (Auto) (0.0-0.8) K/uL Eos # (Auto) (0.0-0.7) K/uL Baso # (Auto) (0.0-0.2) K/uL Neutrophils % (Manual) (42-75) % Band Neutrophils % (0-2) % Lymphocytes % (Manual) (20-50) % Monocytes % (Manual) (0-10) % Eosinophils % (Manual) (0-7) % Myelocytes % (0-0) % Platelet Estimate (NORMAL) Large Platelets Hypochromasia (manual) Anisocytosis (manual) Tear Drop Cells Ovalocytes Schistocytes Sodium (132-148) mmol/l Potassium (3.6-5.0) MMOL/L Chloride (98-107) mmol/L Carbon Dioxide (22-30) mmol/L Anion Gap (10-20) BUN (9-20) mg/dl Creatinine (0.8-1.5) mg/dl Est GFR ( Amer) Est GFR (Non-Af Amer) POC Glucose (mg/dL) 156 H 153 H 116 H (65-110) mg/dL Random Glucose (75-110) mg/dL Calcium (8.4-10.2) mg/dL Total Bilirubin (0.2-1.3) mg/dl AST (17-59) U/L ALT (21-72) U/L Alkaline Phosphatase (38-126) U/L Total Protein (6.3-8.2) G/DL Albumin (3.5-5.0) g/dL Globulin (2.2-3.9) gm/dL Albumin/Globulin Ratio (1.0-2.1) 06/05/18 Range/Units 04:45 WBC (4.8-10.8) K/uL RBC (4.40-5.90) Mil/uL Hgb (12.0-18.0) g/dL Hct (35.0-51.0) % MCV (80.0-94.0) fl MCH (27.0-31.0) pg MCHC (33.0-37.0) g/dL RDW (11.5-14.5) % Plt Count (130-400) K/uL MPV (7.2-11.7) fl Neut % (Auto) (50.0-75.0) % Lymph % (Auto) (20.0-40.0) % [place] % (Auto) (0.0-10.0) % Eos % (Auto) (0.0-4.0) % Baso % (Auto) (0.0-2.0) % Neut # (Auto) (1.8-7.0) K/uL Lymph # (Auto) (1.0-4.3) K/uL [place] # (Auto) (0.0-0.8) K/uL Eos # (Auto) (0.0-0.7) K/uL Baso # (Auto) (0.0-0.2) K/uL Neutrophils % (Manual) 84 H (42-75) % Band Neutrophils % 1 (0-2) % Lymphocytes % (Manual) 7 L (20-50) % Monocytes % (Manual) 5 (0-10) % Eosinophils % (Manual) 2 (0-7) % Myelocytes % 1 H (0-0) % Platelet Estimate Normal (NORMAL) Large Platelets Present Hypochromasia (manual) Slight Anisocytosis (manual) Slight Tear Drop Cells Slight Ovalocytes Slight Schistocytes Slight Sodium (132-148) mmol/l Potassium (3.6-5.0) MMOL/L Chloride (98-107) mmol/L Carbon Dioxide (22-30) mmol/L Anion Gap (10-20) BUN (9-20) mg/dl Creatinine (0.8-1.5) mg/dl Est GFR ( Amer) Est GFR (Non-Af Amer) POC Glucose (mg/dL) (65-110) mg/dL Random Glucose (75-110) mg/dL Calcium (8.4-10.2) mg/dL Total Bilirubin (0.2-1.3) mg/dl AST (17-59) U/L ALT (21-72) U/L Alkaline Phosphatase (38-126) U/L Total Protein (6.3-8.2) G/DL Albumin (3.5-5.0) g/dL Globulin (2.2-3.9) gm/dL Albumin/Globulin Ratio (1.0-2.1) Laboratory Results - last 24 hr 06/05/18 06/05/18 06/05/18 04:45 11:28 16:26 WBC RBC Hgb Hct MCV MCH MCHC RDW Plt Count MPV Neut % (Auto) Lymph % (Auto) [place] % (Auto) Eos % (Auto) Baso % (Auto) Neut # (Auto) Lymph # (Auto) [place] # (Auto) Eos # (Auto) Baso # (Auto) Neutrophils % (Manual) 84 H Band Neutrophils % 1 Lymphocytes % (Manual) 7 L Monocytes % (Manual) 5 Eosinophils % (Manual) 2 Myelocytes % 1 H Platelet Estimate Normal Large Platelets Present Hypochromasia (manual) Slight Anisocytosis (manual) Slight Tear Drop Cells Slight Ovalocytes Slight Schistocytes Slight Sodium Potassium Chloride Carbon Dioxide Anion Gap BUN Creatinine Est GFR ( Amer) Est GFR (Non-Af Amer) POC Glucose (mg/dL) 116 H 153 H Random Glucose Calcium Total Bilirubin AST ALT Alkaline Phosphatase Total Protein Albumin Globulin Albumin/Globulin Ratio 06/05/18 06/06/18 06/06/18 21:20 04:30 04:30 WBC 14.0 H RBC 3.49 L Hgb 9.3 L Hct 28.9 L MCV 82.8 MCH 26.7 L MCHC 32.2 L RDW 16.4 H Plt Count 343 MPV 10.0 Neut % (Auto) 86.1 H Lymph % (Auto) 5.6 L [place] % (Auto) 6.4 Eos % (Auto) 1.3 Baso % (Auto) 0.6 Neut # (Auto) 12.0 H Lymph # (Auto) 0.8 L [place] # (Auto) 0.9 H Eos # (Auto) 0.2 Baso # (Auto) 0.1 Neutrophils % (Manual) Band Neutrophils % Lymphocytes % (Manual) Monocytes % (Manual) Eosinophils % (Manual) Myelocytes % Platelet Estimate Large Platelets Hypochromasia (manual) Anisocytosis (manual) Tear Drop Cells Ovalocytes Schistocytes Sodium 138 Potassium 4.2 Chloride 99 Carbon Dioxide 31 H Anion Gap 12 BUN 21 H Creatinine 0.6 L Est GFR ( Amer) > 60 Est GFR (Non-Af Amer) > 60 POC Glucose (mg/dL) 156 H Random Glucose 142 H Calcium 8.3 L Total Bilirubin 0.5 AST 30 ALT 36 Alkaline Phosphatase 101 Total Protein 6.9 Albumin 2.9 L D Globulin 3.9 Albumin/Globulin Ratio 0.7 L 06/06/18 05:01 WBC RBC Hgb Hct MCV MCH MCHC RDW Plt Count MPV Neut % (Auto) Lymph % (Auto) [place] % (Auto) Eos % (Auto) Baso % (Auto) Neut # (Auto) Lymph # (Auto) [place] # (Auto) Eos # (Auto) Baso # (Auto) Neutrophils % (Manual) Band Neutrophils % Lymphocytes % (Manual) Monocytes % (Manual) Eosinophils % (Manual) Myelocytes % Platelet Estimate Large Platelets Hypochromasia (manual) Anisocytosis (manual) Tear Drop Cells Ovalocytes Schistocytes Sodium Potassium Chloride Carbon Dioxide Anion Gap BUN Creatinine Est GFR ( Amer) Est GFR (Non-Af Amer) POC Glucose (mg/dL) 154 H Random Glucose Calcium Total Bilirubin AST ALT Alkaline Phosphatase Total Protein Albumin Globulin Albumin/Globulin Ratio Fingerstick Blood Sugar Results: 156 Assessment/Plan - Assessment and Plan (Free Text) Assessment: A/P Respiratory failure, sepsis, paroxysmal A Fib, s/p hyponatremia, azotemia, dementia - Continue piece - O2 Supplement - Pulmonary toilets - Continue meds - Poor prognosis
[2018-06-06] MEDS: Vitamins A & D Oint UD Foilpak TOP SCH ×2 (08:40→16:30)
--- NOTE | 2018-06-06 08:44 | RAD ---
Date of service: 06/06/2018 HISTORY: patient intubated COMPARISON: 06/04/2018 FINDINGS: LUNGS: Large right upper lobe infiltrate and right perihilar infiltrate. PLEURA: No significant pleural effusion identified, no pneumothorax apparent. CARDIOVASCULAR: No aortic atherosclerotic calcification present. Normal cardiac size. No pulmonary vascular congestion. OSSEOUS STRUCTURES: No significant abnormalities. VISUALIZED UPPER ABDOMEN: Normal. OTHER FINDINGS: Tubes and catheters unchanged. IMPRESSION: No change.
[2018-06-06] MEDS: Fluconazole IV 100mg/50 ml NS 50 ML IVPB SCH (13:28)
--- NOTE | 2018-06-06 17:10 | CP.PCM.PN ---
Subjective - Date & Time of Evaluation Date of Evaluation: 06/06/18 Time of Evaluation: 11:00 - Subjective Subjective: F/U Respiratory Failure lethargic, minimal response to tactil stimuli, Pt was on T piece, back on AC Objective - Vital Signs/Intake and Output Vital Signs (last 24 hours): Temp Pulse Resp BP Pulse Ox 99.8 F H 73 5 L 128/61 99 06/06/18 16:00 06/06/18 16:00 06/06/18 16:00 06/06/18 16:00 06/06/18 16:00 Intake and Output: 06/06/18 06/06/18 06:59 18:59 Intake Total 1440 Output Total 800 Balance 640 - Medications Medications: Current Medications Acetaminophen (Tylenol 650mg/20.3ml Solution Ud) 650 mg PO Q4 PRN PRN Reason: Temperature Last Admin: 06/05/18 21:16 Dose: 650 mg Acetylcysteine (Mucomyst 10% 4ml) 2 ml IH RQ8 KEN Last Admin: 06/06/18 15:02 Dose: 2 ml Alendronate Sodium (Fosamax) 70 mg PO FR KEN Last Admin: 05/21/18 10:29 Dose: 70 mg Artificial Tears (Artificial Tears) 2 drop OU Q6 KEN Last Admin: 06/06/18 16:29 Dose: 2 drop Calcium Carbonate (Oscal) 500 mg PO BID KEN Last Admin: 05/21/18 10:26 Dose: 500 mg Cholecalciferol (Vitamin D) 1,000 intlu PO BID KEN Last Admin: 05/21/18 10:27 Dose: 1,000 intlu Donepezil HCl (Aricept) 5 mg PO HS KEN Last Admin: 05/20/18 21:28 Dose: 5 mg Meropenem 1 gm/ Sodium (Chloride) 100 mls @ 100 mls/hr IVPB Q8 KEN; Protocol Last Admin: 06/06/18 16:30 Dose: 100 mls/hr Fluconazole (Diflucan Iv 100 Mg/50 Ml Ns) 50 mls @ 50 mls/hr IVPB DAILY@1400 KEN; Protocol Last Admin: 06/06/18 13:28 Dose: 50 mls/hr Vancomycin HCl 750 mg/ Sodium (Chloride) 250 mls @ 166.667 mls/hr IVPB Q12 KEN; Protocol Last Admin: 06/06/18 08:40 Dose: 166.667 mls/hr Ipratropium [place] (Atrovent) 0.5 mg IH RQ8 [facility] Last Admin: 06/06/18 15:01 Dose: 0.5 mg Memantine (Namenda) 5 mg PO Q12 [facility] Last Admin: 05/21/18 10:25 Dose: 5 mg Metoprolol Tartrate (Lopressor) 50 mg PO Q12 [facility] Last Admin: 06/06/18 08:39 Dose: 50 mg Multivitamins/Minerals (Therapeutic-M Tab) 1 tab PO DAILY [facility] Last Admin: 05/21/18 10:27 Dose: 1 tab Pantoprazole Sodium (Protonix Inj) 40 mg IVP DAILY [facility] Last Admin: 06/06/18 08:40 Dose: 40 mg Senna/Docusate Sodium (Senokot S 50 Mg-8.6 Mg) 1 tab PO HS [facility] Last Admin: 05/20/18 21:29 Dose: 1 tab Tamsulosin HCl (Flomax) 0.4 mg PO QPM [facility] Last Admin: 05/20/18 17:19 Dose: 0.4 mg Vitamin A (Vitamin A & D Oint Ud Foilpak) 1 ea TOP BID [facility] Last Admin: 06/06/18 16:30 Dose: 1 ea - Labs Labs: 06/06/18 04:30 06/06/18 04:30 PT 15.7 Seconds (9.8-13.1) H 05/12/18 07:50 INR 1.4 05/12/18 07:50 APTT 34.4 Seconds (25.6-37.1) 05/12/18 07:50 - Constitutional Appears: Chronically Ill - Head Exam Head Exam: NORMAL INSPECTION - Eye Exam Eye Exam: PERRL - ENT Exam Additional comments: Intubated T Piece in place. OGT - Neck Exam Neck Exam: Normal Inspection - Respiratory Exam Respiratory Exam: Decreased Breath Sounds (at bases), Rhonchi (scattered) - Cardiovascular Exam Cardiovascular Exam: REGULAR RHYTHM - GI/Abdominal Exam GI & Abdominal Exam: Soft, Normal Bowel Sounds - Extremities Exam Additional comments: Edema extremities - Back Exam Additional comments: Sacral ulcer - Neurological Exam Additional comments: Intubated, lethargic - Skin Skin Exam: Warm Assessment and Plan (1) Respiratory failure Status: Acute (2) Aspiration pneumonia Status: Acute (3) E. coli UTI Status: Acute (4) Fever Status: Resolved (5) Sepsis syndrome Status: Acute (6) Hypoxemia Status: Chronic (7) Esophageal dilatation Status: Chronic (8) Dementia Status: Chronic (9) HTN (hypertension) Status: Chronic (10) DMII (diabetes mellitus, type 2) Status: Chronic - Assessment and Plan (Free Text) Plan: back on AC, FIO2 50%, Pt on Merren, Diflucan, Atrovent , Mucomyst, Patient,s son will take a decision tomorrow Tracheostomy, PEG tube vs extubation Critical care time: 32 min.
[2018-06-06 20:33] LABS: ABG ALLEN TEST YES; ARTERIAL BLOOD GAS HCO3 33.3 mmol/L (21-28); ARTERIAL BLOOD GAS HEMOGLOBIN 9.5 g/dL (11.7-17.4); ARTERIAL BLOOD GAS O2 CONTENT 12.9 ML/dL (15-23); ARTERIAL BLOOD GAS O2 SAT 99.4 % (95-98); ARTERIAL BLOOD GAS PCO2 45 mm/Hg (35-45); ARTERIAL BLOOD GAS PO2 82 mm/Hg (80-100); ARTERIAL BLOOD GAS TCO2 36.5 mmol/L (22-28)
[2018-06-07] MEDS: Ipratropium 0.02% Inhal Soln (0.5 mg/2.5 ml) UD IH SCH ×2 (00:13→07:51)
[2018-06-07] MEDS: Acetylcysteine 10% 4 ML IH SCH ×3 (00:13→15:28)
[2018-06-07] MEDS: Meropenem 1 GM in Sodium Chloride 0.9% 100 ML IVPB SCH ×3 (00:38→16:07)
[2018-06-07 04:29] LABS: ABG ALLEN TEST YES; ARTERIAL BLOOD GAS HCO3 30.7 mmol/L (21-28); ARTERIAL BLOOD GAS HEMOGLOBIN 10.2 g/dL (11.7-17.4); ARTERIAL BLOOD GAS O2 CAPACITY 13.9 mL/dL (16-24); ARTERIAL BLOOD GAS O2 SAT 100.7 % (95-98); ARTERIAL BLOOD GAS PCO2 40 mm/Hg (35-45); ARTERIAL BLOOD GAS PO2 89 mm/Hg (80-100); ARTERIAL BLOOD GAS TCO2 32.4 mmol/L (22-28)
[2018-06-07] MEDS: Artificial Tears Opht Soln OU SCH ×4 (05:01→21:10)
[2018-06-07 05:46] LABS: HEMOGLOBIN 8.6 g/dL (12.0-18.0); MEAN CELL VOLUME 82.4 fl (80.0-94.0); MEAN CORPUSCULAR HEMOGLOBIN 27.1 pg (27.0-31.0); RBC 3.16 Mil/uL (4.40-5.90); RED CELL DISTRIBUTION WIDTH 16.4 % (11.5-14.5); WHITE BLOOD COUNT 14.9 K/uL (4.8-10.8)
[2018-06-07 05:59] LABS: BLOOD UREA NITROGEN 22 mg/dl (9-20); CALCIUM 8.4 mg/dL (8.4-10.2); GFR NON-AFRICAN AMERICAN > 60
--- NOTE | 2018-06-07 07:36 | CP.CCUPN ---
CCU Subjective - Physician Review Subjective (Free Text): 06/07/18 11:25 The patient was Seen/interviewed and examined by me at the bedside during ICU round, Medical records reviewed and Management issues were discussed and formulated with the house staff. Events reviewed Patient is a 81 years old male with past medical history of hypertension, diabetes and dementia who initially presented to the emergency room by EMS from detention for evaluation of fever and sepsis He was transferred to the intensive care unit on May 24 after [facility] was called due to hypoxemia with hypotension, at that time his blood pressure was 96/50, HR 93 RR 22 and oxygen saturation was 82% and required intubation and mechanical ventilation Currently he is managed in the ICU for acute hypoxemic respiratory failure secondary to bilateral pneumonia, severe sepsis/septic shock due to E. coli urinary tract infection This morning the patient is totally of all sedation but he still not following command, lethargic, non verbal On PRVC 400/18/50% PEEP-5 He was placed on CPAP trial tolerating so far, and plan is to wean to extubate or consider Trach/Peg CCU Objective - Vital Signs / Intake & Output Vital Signs (Last 4 hours): Vital Signs Temp Pulse Resp BP Pulse Ox 06/07/18 06:00 99.7 F H 60 27 H 119/64 100 06/07/18 04:00 99.5 F 70 26 H 125/58 L 100 Intake and Output (Last 8hrs): Intake & Output 06/06/18 06/07/18 06/07/18 22:59 06:59 14:59 Intake Total 1034 694 Output Total 200 1400 Balance 834 -706 Weight 152 lb Intake: IV 4 14 Intake, Piggyback 350 100 Tube Feeding 480 480 Free Water Flush 200 100 Output: Urine 200 1400 Urethral (Cerrato) 200 1400 Other: # Bowel Movements 1 - Physical Exam Head: Positive for: Atraumatic, Normocephalic Pupils: Positive for: PERRL Extroacular Muscles: Positive for: EOMI Conjunctiva: Positive for: Normal. Negative for: Injected, Icteric Mouth: Positive for: Moist Mucous Membranes Neck: Positive for: Normal Range of Motion, Trachea Midline Respiratory/Chest: Positive for: Good Air Exchange, Rales, Rhonchi. Negative for: Respiratory Distress, Accessory Muscle Use, Wheezes Cardiovascular: Positive for: Regular Rate and Rhythm, Normal S1, S2. Negative for: Murmurs Abdomen: Positive for: Normal Bowel Sounds. Negative for: Tenderness, Distention Neurological: Positive for: Other (opens eyes occasionally) - Medications Active Medications: Active Medications Generic Name Dose Route Start Last Admin Trade Name Freq PRN Reason Stop Dose Admin Acetaminophen 650 mg 05/26/18 20:45 06/05/18 21:16 Tylenol 650mg/20.3ml Solution Ud PO 650 mg Q4 PRN Administration Temperature Acetylcysteine 2 ml 05/17/18 16:00 06/07/18 00:13 Mucomyst 10% 4ml IH 2 ml RQ8 KEN Administration Alendronate Sodium 70 mg 05/21/18 09:00 05/21/18 10:29 Fosamax PO 70 mg FR KEN Administration Artificial Tears 2 drop 05/17/18 22:00 06/07/18 05:01 Artificial Tears OU 2 drop Q6 KEN Administration Calcium Carbonate 500 mg 05/17/18 17:00 05/21/18 10:26 Oscal PO 500 mg BID KEN Administration Cholecalciferol 1,000 intlu 05/17/18 17:00 05/21/18 10:27 Vitamin D PO 1,000 intlu BID KEN Administration Donepezil HCl 5 mg 05/17/18 22:00 05/20/18 21:28 Aricept PO 5 mg HS KEN Administration Meropenem 1 gm/ Sodium 100 mls @ 100 mls/hr 05/27/18 11:15 06/07/18 00:38 Chloride IVPB 100 mls/hr Q8 KEN Administration Protocol Ipratropium [place] 0.5 mg 05/24/18 16:00 06/07/18 00:13 Atrovent IH 0.5 mg RQ8 KEN Administration Memantine 5 mg 05/17/18 21:00 05/21/18 10:25 Namenda PO 5 mg Q12 KEN Administration Metoprolol Tartrate 50 mg 05/28/18 09:00 06/06/18 20:22 Lopressor PO 50 mg Q12 KEN Administration Multivitamins/Minerals 1 tab 05/18/18 09:00 05/21/18 10:27 Therapeutic-M Tab PO 1 tab DAILY KEN Administration Pantoprazole Sodium 40 mg 05/24/18 10:30 06/06/18 08:40 Protonix Inj IVP 40 mg DAILY KEN Administration Senna/Docusate Sodium 1 tab 05/17/18 22:00 05/20/18 21:29 Senokot S 50 Mg-8.6 Mg PO 1 tab HS KEN Administration Tamsulosin HCl 0.4 mg 05/17/18 18:00 05/20/18 17:19 Flomax PO 0.4 mg QPM KEN Administration Vitamin A 1 ea 05/16/18 17:45 06/06/18 16:30 Vitamin A & D Oint Ud Foilpak TOP 1 ea BID KEN Administration - Patient Studies Lab Studies: Lab Studies 06/07/18 06/07/18 06/07/18 Range/Units 04:51 04:30 04:30 WBC 14.9 H (4.8-10.8) K/uL RBC 3.16 L (4.40-5.90) Mil/uL Hgb 8.6 L (12.0-18.0) g/dL Hct 26.0 L (35.0-51.0) % MCV 82.4 (80.0-94.0) fl MCH 27.1 (27.0-31.0) pg MCHC 33.0 (33.0-37.0) g/dL RDW 16.4 H (11.5-14.5) % Plt Count 350 (130-400) K/uL pCO2 (35-45) mm/Hg pO2 (80-100) mm/Hg HCO3 (21-28) mmol/L ABG pH (7.35-7.45) ABG Total CO2 (22-28) mmol/L ABG O2 Saturation (95-98) % ABG O2 Content (15-23) ML/dL ABG Base Excess (-2.0-3.0) mmol/L ABG Hemoglobin (11.7-17.4) g/dL ABG Carboxyhemoglobin (0.5-1.5) % POC ABG HHb (Measured) (0.0-5.0) % ABG Methemoglobin (0.0-3.0) % ABG O2 Capacity (16-24) mL/dL Forrest Test A-a O2 Difference mm/Hg Hgb O2 Saturation (95.0-98.0) % Vent Mode Mechanical Rate FiO2 % Tidal Volume PEEP Sodium 138 (132-148) mmol/l Potassium 3.9 (3.6-5.0) MMOL/L Chloride 101 (98-107) mmol/L Carbon Dioxide 31 H (22-30) mmol/L Anion Gap 10 (10-20) BUN 22 H (9-20) mg/dl Creatinine 0.7 L (0.8-1.5) mg/dl Est GFR ( Amer) > 60 Est GFR (Non-Af Amer) > 60 POC Glucose (mg/dL) 176 H (65-110) mg/dL Random Glucose 168 H (75-110) mg/dL Calcium 8.4 (8.4-10.2) mg/dL 06/06/18 06/06/18 06/06/18 Range/Units 20:43 20:30 16:27 WBC (4.8-10.8) K/uL RBC (4.40-5.90) Mil/uL Hgb (12.0-18.0) g/dL Hct (35.0-51.0) % MCV (80.0-94.0) fl MCH (27.0-31.0) pg MCHC (33.0-37.0) g/dL RDW (11.5-14.5) % Plt Count (130-400) K/uL pCO2 45 (35-45) mm/Hg pO2 82 (80-100) mm/Hg HCO3 33.3 H (21-28) mmol/L ABG pH 7.50 H (7.35-7.45) ABG Total CO2 36.5 H (22-28) mmol/L ABG O2 Saturation 99.4 H (95-98) % ABG O2 Content 12.9 L (15-23) ML/dL ABG Base Excess 10.8 H (-2.0-3.0) mmol/L ABG Hemoglobin 9.5 L (11.7-17.4) g/dL ABG Carboxyhemoglobin 2.0 H (0.5-1.5) % POC ABG HHb (Measured) 0.6 (0.0-5.0) % ABG Methemoglobin 1.4 (0.0-3.0) % ABG O2 Capacity 13.0 L (16-24) mL/dL Forrest Test Yes A-a O2 Difference 218.0 mm/Hg Hgb O2 Saturation 96.1 (95.0-98.0) % Vent Mode A/c Mechanical Rate 400 FiO2 50.0 % Tidal Volume 18 PEEP 5 Sodium (132-148) mmol/l Potassium (3.6-5.0) MMOL/L Chloride (98-107) mmol/L Carbon Dioxide (22-30) mmol/L Anion Gap (10-20) BUN (9-20) mg/dl Creatinine (0.8-1.5) mg/dl Est GFR ( Amer) Est GFR (Non-Af Amer) POC Glucose (mg/dL) 213 H 210 H (65-110) mg/dL Random Glucose (75-110) mg/dL Calcium (8.4-10.2) mg/dL 06/06/18 06/06/18 Range/Units 11:17 09:48 WBC (4.8-10.8) K/uL RBC (4.40-5.90) Mil/uL Hgb (12.0-18.0) g/dL Hct (35.0-51.0) % MCV (80.0-94.0) fl MCH (27.0-31.0) pg MCHC (33.0-37.0) g/dL RDW (11.5-14.5) % Plt Count (130-400) K/uL pCO2 (35-45) mm/Hg pO2 (80-100) mm/Hg HCO3 (21-28) mmol/L ABG pH (7.35-7.45) ABG Total CO2 (22-28) mmol/L ABG O2 Saturation (95-98) % ABG O2 Content (15-23) ML/dL ABG Base Excess (-2.0-3.0) mmol/L ABG Hemoglobin (11.7-17.4) g/dL ABG Carboxyhemoglobin (0.5-1.5) % POC ABG HHb (Measured) (0.0-5.0) % ABG Methemoglobin (0.0-3.0) % ABG O2 Capacity (16-24) mL/dL Forrest Test A-a O2 Difference mm/Hg Hgb O2 Saturation (95.0-98.0) % Vent Mode Mechanical Rate FiO2 % Tidal Volume PEEP Sodium (132-148) mmol/l Potassium (3.6-5.0) MMOL/L Chloride (98-107) mmol/L Carbon Dioxide (22-30) mmol/L Anion Gap (10-20) BUN (9-20) mg/dl Creatinine (0.8-1.5) mg/dl Est GFR ( Amer) Est GFR (Non-Af Amer) POC Glucose (mg/dL) 190 H 149 H (65-110) mg/dL Random Glucose (75-110) mg/dL Calcium (8.4-10.2) mg/dL Laboratory Results - last 24 hr 06/06/18 06/06/18 06/06/18 09:48 11:17 16:27 WBC RBC Hgb Hct MCV MCH MCHC RDW Plt Count pCO2 pO2 HCO3 ABG pH ABG Total CO2 ABG O2 Saturation ABG O2 Content ABG Base Excess ABG Hemoglobin ABG Carboxyhemoglobin POC ABG HHb (Measured) ABG Methemoglobin ABG O2 Capacity Forrest Test A-a O2 Difference Hgb O2 Saturation Vent Mode Mechanical Rate FiO2 Tidal Volume PEEP Sodium Potassium Chloride Carbon Dioxide Anion Gap BUN Creatinine Est GFR ( Amer) Est GFR (Non-Af Amer) POC Glucose (mg/dL) 149 H 190 H 210 H Random Glucose Calcium 06/06/18 06/06/18 06/07/18 20:30 20:43 04:30 WBC 14.9 H RBC 3.16 L Hgb 8.6 L Hct 26.0 L MCV 82.4 MCH 27.1 MCHC 33.0 RDW 16.4 H Plt Count 350 pCO2 45 pO2 82 HCO3 33.3 H ABG pH 7.50 H ABG Total CO2 36.5 H ABG O2 Saturation 99.4 H ABG O2 Content 12.9 L ABG Base Excess 10.8 H ABG Hemoglobin 9.5 L ABG Carboxyhemoglobin 2.0 H POC ABG HHb (Measured) 0.6 ABG Methemoglobin 1.4 ABG O2 Capacity 13.0 L Forrest Test Yes A-a O2 Difference 218.0 Hgb O2 Saturation 96.1 Vent Mode A/c Mechanical Rate 400 FiO2 50.0 Tidal Volume 18 PEEP 5 Sodium Potassium Chloride Carbon Dioxide Anion Gap BUN Creatinine Est GFR ( Amer) Est GFR (Non-Af Amer) POC Glucose (mg/dL) 213 H Random Glucose Calcium 06/07/18 06/07/18 04:30 04:51 WBC RBC Hgb Hct MCV MCH MCHC RDW Plt Count pCO2 pO2 HCO3 ABG pH ABG Total CO2 ABG O2 Saturation ABG O2 Content ABG Base Excess ABG Hemoglobin ABG Carboxyhemoglobin POC ABG HHb (Measured) ABG Methemoglobin ABG O2 Capacity Forrest Test A-a O2 Difference Hgb O2 Saturation Vent Mode Mechanical Rate FiO2 Tidal Volume PEEP Sodium 138 Potassium 3.9 Chloride 101 Carbon Dioxide 31 H Anion Gap 10 BUN 22 H Creatinine 0.7 L Est GFR ( Amer) > 60 Est GFR (Non-Af Amer) > 60 POC Glucose (mg/dL) 176 H Random Glucose 168 H Calcium 8.4 Radiology Impressions: Radiology Impressions Chest X-Ray 06/06/18 03:54 IMPRESSION: No change. Fingerstick Blood Sugar Results: 213 Review of Systems - Review of Systems Systems not reviewed;Unavailable: Intubated Critical Care Progress Note - Ventilator Checklist Head of Bed 30 Degrees: Yes Daily Sedation Vacation: Yes Daily Assessment of Readiness to Wean: Yes Daily Spontaneous Breathing Trial: Yes PUD Prophalyxis: Yes DVT Prophylaxis: Yes Oral Care with Chlorhexidine Gluconate {CHG}: Yes - Extremities/Vascular Does the Patient have a Central Venous Catheter?: No Does the Patient need a Central Venous Catheter?: No - Prophylaxis GI Prophylaxis GI: PPI - Prophylaxis DVT Prophylaxis DVT: Lovenox Assessment/Plan (1) Acute respiratory failure with hypoxia Current Visit: Yes Status: Acute Priority: High Comment: Vent weaning in progress, Off seations Aggressive pulmonary toilet, chest PT, suctioning (2) Severe sepsis Current Visit: Yes Status: Acute Priority: High Comment: Continue Antibiotics with IV Vancomycin, Diflucan and Meropenem (3) Aspiration pneumonia Current Visit: Yes Status: Acute Priority: High (4) Hyponatremia Current Visit: Yes Status: Resolved Priority: Medium (5) Atrial fibrillation with RVR Current Visit: Yes Status: Resolved (6) Dementia Current Visit: No Status: Chronic Priority: Medium - Assessment and Plan (Free Text) Assessment: Total critical care 35 min
--- NOTE | 2018-06-07 08:04 | RAD ---
Date of service: 06/07/2018 HISTORY: Intubated COMPARISON: Portable chest 06/06/2018 8:01 p.m.. FINDINGS: LUNGS: Endotracheal tube is been advanced to terminate 3.7 cm cephalad to the brianne. No significant interval change in nasogastric tube placement. No interval change in patchy right upper lobe infiltrate with remaining lung capps bilaterally clear. PLEURA: No significant pleural effusion identified, no pneumothorax apparent. CARDIOVASCULAR: Calcific atherosclerotic changes are seen related to the thoracic aorta. Normal cardiac size. No pulmonary vascular congestion. OSSEOUS STRUCTURES: No significant abnormalities. VISUALIZED UPPER ABDOMEN: Normal. OTHER FINDINGS: None. IMPRESSION: No interval change in right upper lobe patchy infiltrate.
[2018-06-07] MEDS: Vitamins A & D Oint UD Foilpak TOP SCH ×2 (08:11→16:09)
--- NOTE | 2018-06-07 08:32 | RAD ---
Date of service: 06/06/2018 HISTORY: Labored breathine COMPARISON: Portable chest 06/06/2018 4:27 a.m.. FINDINGS: LUNGS: ET tube terminates at the level of clavicles. Advancement is advised antegrade some 3-4 cm followed by confirmation radiography. Nasogastric tube is not significantly changed in position. Stable right upper lobe and right perihilar infiltrates with left base now clear. PLEURA: No significant pleural effusion identified, no pneumothorax apparent. CARDIOVASCULAR: Calcific atherosclerotic changes are seen related to the thoracic aorta. Normal cardiac size. No pulmonary vascular congestion. OSSEOUS STRUCTURES: No significant abnormalities. VISUALIZED UPPER ABDOMEN: Normal. OTHER FINDINGS: None. IMPRESSION: Stable right upper lobe infiltrate with interval clearing of the left base suggesting prior atelectasis. ET tube remains elevated the trachea as discussed above. Advancement into the trachea further is advised follow-up by confirmation radiography. Findings discussed with ICU Nurse Ramu by telephone with written down and read back verification 06/07/2018 8:25 a.m..
[2018-06-07] MEDS: Enoxaparin 40 mg Syringe SC SCH (14:14)
--- NOTE | 2018-06-07 14:46 | CP.PCM.PN ---
Subjective - Date & Time of Evaluation Date of Evaluation: 06/07/18 Time of Evaluation: 09:00 - Subjective Subjective: F/U respiratory failure Minimal response to tactile stimuli, intubated on PRVC/AC FIO2 40%. Objective - Vital Signs/Intake and Output Vital Signs (last 24 hours): Temp Pulse Resp BP Pulse Ox 99.9 F H 71 21 108/53 L 100 06/07/18 12:00 06/07/18 14:00 06/07/18 14:00 06/07/18 14:00 06/07/18 14:00 Intake and Output: 06/07/18 06/07/18 06:59 18:59 Intake Total 1288 720 Output Total 1400 Balance -112 720 - Medications Medications: Current Medications Acetaminophen (Tylenol 650mg/20.3ml Solution Ud) 650 mg PO Q4 PRN PRN Reason: Temperature Last Admin: 06/05/18 21:16 Dose: 650 mg Acetylcysteine (Mucomyst 10% 4ml) 2 ml IH RQ8 KEN Last Admin: 06/07/18 07:51 Dose: 2 ml Alendronate Sodium (Fosamax) 70 mg PO FR KEN Last Admin: 05/21/18 10:29 Dose: 70 mg Artificial Tears (Artificial Tears) 2 drop OU Q6 KEN Last Admin: 06/07/18 09:52 Dose: 2 drop Calcium Carbonate (Oscal) 500 mg PO BID KEN Last Admin: 05/21/18 10:26 Dose: 500 mg Cholecalciferol (Vitamin D) 1,000 intlu PO BID KEN Last Admin: 05/21/18 10:27 Dose: 1,000 intlu Donepezil HCl (Aricept) 5 mg PO HS [facility] Last Admin: 05/20/18 21:28 Dose: 5 mg Enoxaparin Sodium (Lovenox) 40 mg SC DAILY [facility]; Protocol Last Admin: 06/07/18 14:14 Dose: 40 mg Meropenem 1 gm/ Sodium (Chloride) 100 mls @ 100 mls/hr IVPB Q8 KEN; Protocol Last Admin: 06/07/18 08:10 Dose: 100 mls/hr Memantine (Namenda) 5 mg PO Q12 KEN Last Admin: 05/21/18 10:25 Dose: 5 mg Metoprolol Tartrate (Lopressor) 50 mg PO Q12 KEN Last Admin: 06/07/18 08:55 Dose: 50 mg Multivitamins/Minerals (Therapeutic-M Tab) 1 tab PO DAILY [facility] Last Admin: 05/21/18 10:27 Dose: 1 tab Senna/Docusate Sodium (Senokot S 50 Mg-8.6 Mg) 1 tab PO HS [facility] Last Admin: 05/20/18 21:29 Dose: 1 tab Tamsulosin HCl (Flomax) 0.4 mg PO QPM [facility] Last Admin: 05/20/18 17:19 Dose: 0.4 mg Vitamin A (Vitamin A & D Oint Ud Foilpak) 1 ea TOP BID [facility] Last Admin: 06/07/18 08:11 Dose: 1 ea - Labs Labs: 06/07/18 04:30 06/07/18 04:30 PT 15.7 Seconds (9.8-13.1) H 05/12/18 07:50 INR 1.4 05/12/18 07:50 APTT 34.4 Seconds (25.6-37.1) 05/12/18 07:50 - Constitutional Appears: Chronically Ill - Head Exam Head Exam: NORMAL INSPECTION - Eye Exam Eye Exam: PERRL - ENT Exam Additional comments: Intubated OGT - Neck Exam Neck Exam: Normal Inspection - Respiratory Exam Respiratory Exam: Decreased Breath Sounds (at bases), Rhonchi (scattered) - Cardiovascular Exam Cardiovascular Exam: REGULAR RHYTHM - GI/Abdominal Exam GI & Abdominal Exam: Soft, Normal Bowel Sounds - Extremities Exam Additional comments: Edema extremities, - Back Exam Additional comments: Sacral ulcer - Neurological Exam Additional comments: Intubated, open eyes to verbal and tactile stimuli. - Skin Skin Exam: Warm Assessment and Plan (1) Respiratory failure Status: Acute (2) Aspiration pneumonia Status: Acute (3) E. 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 Critcal care time: 32 min.
--- NOTE | 2018-06-07 16:28 | CP.PCM.PN ---
Subjective - Date & Time of Evaluation Date of Evaluation: 06/07/18 Time of Evaluation: 16:28 - Subjective Subjective: ID note- Pt. seen and examined today in ICU. remains intubated. lethargic . low garde fever today and rise in wbc. Objective - Vital Signs/Intake and Output Vital Signs (last 24 hours): Temp Pulse Resp BP Pulse Ox 99.9 F H 64 22 119/57 L 100 06/07/18 16:00 06/07/18 16:00 06/07/18 16:00 06/07/18 16:00 06/07/18 14:00 Intake and Output: 06/07/18 06/07/18 06:59 18:59 Intake Total 1288 940 Output Total 1400 Balance -112 940 - Medications Medications: Current Medications Acetaminophen (Tylenol 650mg/20.3ml Solution Ud) 650 mg PO Q4 PRN PRN Reason: Temperature Last Admin: 06/05/18 21:16 Dose: 650 mg Acetylcysteine (Mucomyst 10% 4ml) 2 ml IH RQ8 KEN Last Admin: 06/07/18 15:28 Dose: Not Given Alendronate Sodium (Fosamax) 70 mg PO FR KEN Last Admin: 05/21/18 10:29 Dose: 70 mg Artificial Tears (Artificial Tears) 2 drop OU Q6 KEN Last Admin: 06/07/18 16:08 Dose: 2 drop Calcium Carbonate (Oscal) 500 mg PO BID KEN Last Admin: 05/21/18 10:26 Dose: 500 mg Cholecalciferol (Vitamin D) 1,000 intlu PO BID KEN Last Admin: 05/21/18 10:27 Dose: 1,000 intlu Donepezil HCl (Aricept) 5 mg PO HS [facility] Last Admin: 05/20/18 21:28 Dose: 5 mg Enoxaparin Sodium (Lovenox) 40 mg SC DAILY [facility]; Protocol Last Admin: 06/07/18 14:14 Dose: 40 mg Meropenem 1 gm/ Sodium (Chloride) 100 mls @ 100 mls/hr IVPB Q8 KEN; Protocol Last Admin: 06/07/18 16:07 Dose: 100 mls/hr Memantine (Namenda) 5 mg PO Q12 KEN Last Admin: 05/21/18 10:25 Dose: 5 mg Metoprolol Tartrate (Lopressor) 50 mg PO Q12 [facility] Last Admin: 06/07/18 08:55 Dose: 50 mg Multivitamins/Minerals (Therapeutic-M Tab) 1 tab PO DAILY [facility] Last Admin: 05/21/18 10:27 Dose: 1 tab Senna/Docusate Sodium (Senokot S 50 Mg-8.6 Mg) 1 tab PO HS [facility] Last Admin: 05/20/18 21:29 Dose: 1 tab Tamsulosin HCl (Flomax) 0.4 mg PO QPM [facility] Last Admin: 05/20/18 17:19 Dose: 0.4 mg Vitamin A (Vitamin A & D Oint Ud Foilpak) 1 ea TOP BID [facility] Last Admin: 06/07/18 16:09 Dose: 1 ea - Labs Labs: - Additional Findings Additional findings: - Constitutional Appears: Chronically Ill - ENT Exam Additional comments: ET tube in place - Respiratory Exam Additional comments: breath sounds heard b/l is on the vent - Cardiovascular Exam Cardiovascular Exam: Tachycardia, +S1, +S2 - GI/Abdominal Exam GI & Abdominal Exam: Soft, Normal Bowel Sounds Additional comments: ND, NT - Extremities Exam Extremities Exam: Normal Inspection - Neurological Exam Additional comments: Intubated and lethargic Laboratory Results - last 72 hr 06/05/18 06/05/18 06/05/18 04:30 04:45 04:45 WBC 11.6 H RBC 3.20 L Hgb 8.7 L Hct 26.1 L MCV 81.6 MCH 27.1 MCHC 33.2 RDW 15.9 H Plt Count 299 MPV 9.4 Neut % (Auto) 84.3 H Lymph % (Auto) 7.4 L Lyman % (Auto) 6.2 Eos % (Auto) 1.9 Baso % (Auto) 0.2 Neut # (Auto) 9.7 H Lymph # (Auto) 0.9 L Lyman # (Auto) 0.7 Eos # (Auto) 0.2 Baso # (Auto) 0.0 Neutrophils % (Manual) 84 H Band Neutrophils % 1 Lymphocytes % (Manual) 7 L Monocytes % (Manual) 5 Eosinophils % (Manual) 2 Myelocytes % 1 H Platelet Estimate Normal Large Platelets Present Hypochromasia (manual) Slight Anisocytosis (manual) Slight Tear Drop Cells Slight Ovalocytes Slight Schistocytes Slight pCO2 38 pO2 101 H HCO3 32.8 H ABG pH 7.55 H ABG Total CO2 34.4 H ABG O2 Saturation 101.0 H ABG O2 Content 11.8 L ABG Base Excess 10.0 H ABG Hemoglobin 8.4 L ABG Carboxyhemoglobin 1.9 H POC ABG HHb (Measured) -1.0 L ABG Methemoglobin 1.0 ABG O2 Capacity 11.7 L Forrest Test Yes A-a O2 Difference 137.0 Hgb O2 Saturation 98.1 H Vent Mode Mechanical Rate FiO2 40.0 Tidal Volume PEEP Sodium 138 Potassium 4.0 Chloride 100 Carbon Dioxide 31 H Anion Gap 11 BUN 19 Creatinine 0.6 L Est GFR ( Amer) > 60 Est GFR (Non-Af Amer) > 60 POC Glucose (mg/dL) Random Glucose 107 Calcium 8.1 L Total Bilirubin AST ALT Alkaline Phosphatase Total Protein Albumin Globulin Albumin/Globulin Ratio 06/05/18 06/05/18 06/05/18 06:14 11:28 16:26 WBC RBC Hgb Hct MCV MCH MCHC RDW Plt Count MPV Neut % (Auto) Lymph % (Auto) Lyman % (Auto) Eos % (Auto) Baso % (Auto) Neut # (Auto) Lymph # (Auto) Lyman # (Auto) Eos # (Auto) Baso # (Auto) Neutrophils % (Manual) Band Neutrophils % Lymphocytes % (Manual) Monocytes % (Manual) Eosinophils % (Manual) Myelocytes % Platelet Estimate Large Platelets Hypochromasia (manual) Anisocytosis (manual) Tear Drop Cells Ovalocytes Schistocytes pCO2 pO2 HCO3 ABG pH ABG Total CO2 ABG O2 Saturation ABG O2 Content ABG Base Excess ABG Hemoglobin ABG Carboxyhemoglobin POC ABG HHb (Measured) ABG Methemoglobin ABG O2 Capacity Forrest Test A-a O2 Difference Hgb O2 Saturation Vent Mode Mechanical Rate FiO2 Tidal Volume PEEP Sodium Potassium Chloride Carbon Dioxide Anion Gap BUN Creatinine Est GFR ( Amer) Est GFR (Non-Af Amer) POC Glucose (mg/dL) 108 116 H 153 H Random Glucose Calcium Total Bilirubin AST ALT Alkaline Phosphatase Total Protein Albumin Globulin Albumin/Globulin Ratio 06/05/18 06/06/18 06/06/18 21:20 04:30 04:30 WBC 14.0 H RBC 3.49 L Hgb 9.3 L Hct 28.9 L MCV 82.8 MCH 26.7 L MCHC 32.2 L RDW 16.4 H Plt Count 343 MPV 10.0 Neut % (Auto) 86.1 H Lymph % (Auto) 5.6 L Lyman % (Auto) 6.4 Eos % (Auto) 1.3 Baso % (Auto) 0.6 Neut # (Auto) 12.0 H Lymph # (Auto) 0.8 L Lyman # (Auto) 0.9 H Eos # (Auto) 0.2 Baso # (Auto) 0.1 Neutrophils % (Manual) Band Neutrophils % Lymphocytes % (Manual) Monocytes % (Manual) Eosinophils % (Manual) Myelocytes % Platelet Estimate Large Platelets Hypochromasia (manual) Anisocytosis (manual) Tear Drop Cells Ovalocytes Schistocytes pCO2 pO2 HCO3 ABG pH ABG Total CO2 ABG O2 Saturation ABG O2 Content ABG Base Excess ABG Hemoglobin ABG Carboxyhemoglobin POC ABG HHb (Measured) ABG Methemoglobin ABG O2 Capacity Forrest Test A-a O2 Difference Hgb O2 Saturation Vent Mode Mechanical Rate FiO2 Tidal Volume PEEP Sodium 138 Potassium 4.2 Chloride 99 Carbon Dioxide 31 H Anion Gap 12 BUN 21 H Creatinine 0.6 L Est GFR ( Amer) > 60 Est GFR (Non-Af Amer) > 60 POC Glucose (mg/dL) 156 H Random Glucose 142 H Calcium 8.3 L Total Bilirubin 0.5 AST 30 ALT 36 Alkaline Phosphatase 101 Total Protein 6.9 Albumin 2.9 L D Globulin 3.9 Albumin/Globulin Ratio 0.7 L 06/06/18 06/06/18 06/06/18 05:01 09:48 11:17 WBC RBC Hgb Hct MCV MCH MCHC RDW Plt Count MPV Neut % (Auto) Lymph % (Auto) Lyman % (Auto) Eos % (Auto) Baso % (Auto) Neut # (Auto) Lymph # (Auto) Lyman # (Auto) Eos # (Auto) Baso # (Auto) Neutrophils % (Manual) Band Neutrophils % Lymphocytes % (Manual) Monocytes % (Manual) Eosinophils % (Manual) Myelocytes % Platelet Estimate Large Platelets Hypochromasia (manual) Anisocytosis (manual) Tear Drop Cells Ovalocytes Schistocytes pCO2 pO2 HCO3 ABG pH ABG Total CO2 ABG O2 Saturation ABG O2 Content ABG Base Excess ABG Hemoglobin ABG Carboxyhemoglobin POC ABG HHb (Measured) ABG Methemoglobin ABG O2 Capacity Forrest Test A-a O2 Difference Hgb O2 Saturation Vent Mode Mechanical Rate FiO2 Tidal Volume PEEP Sodium Potassium Chloride Carbon Dioxide Anion Gap BUN Creatinine Est GFR ( Amer) Est GFR (Non-Af Amer) POC Glucose (mg/dL) 154 H 149 H 190 H Random Glucose Calcium Total Bilirubin AST ALT Alkaline Phosphatase Total Protein Albumin Globulin Albumin/Globulin Ratio 06/06/18 06/06/18 06/06/18 16:27 20:30 20:43 WBC RBC Hgb Hct MCV MCH MCHC RDW Plt Count MPV Neut % (Auto) Lymph % (Auto) Lyman % (Auto) Eos % (Auto) Baso % (Auto) Neut # (Auto) Lymph # (Auto) Lyman # (Auto) Eos # (Auto) Baso # (Auto) Neutrophils % (Manual) Band Neutrophils % Lymphocytes % (Manual) Monocytes % (Manual) Eosinophils % (Manual) Myelocytes % Platelet Estimate Large Platelets Hypochromasia (manual) Anisocytosis (manual) Tear Drop Cells Ovalocytes Schistocytes pCO2 45 pO2 82 HCO3 33.3 H ABG pH 7.50 H ABG Total CO2 36.5 H ABG O2 Saturation 99.4 H ABG O2 Content 12.9 L ABG Base Excess 10.8 H ABG Hemoglobin 9.5 L ABG Carboxyhemoglobin 2.0 H POC ABG HHb (Measured) 0.6 ABG Methemoglobin 1.4 ABG O2 Capacity 13.0 L Forrest Test Yes A-a O2 Difference 218.0 Hgb O2 Saturation 96.1 Vent Mode A/c Mechanical Rate 400 FiO2 50.0 Tidal Volume 18 PEEP 5 Sodium Potassium Chloride Carbon Dioxide Anion Gap BUN Creatinine Est GFR ( Amer) Est GFR (Non-Af Amer) POC Glucose (mg/dL) 210 H 213 H Random Glucose Calcium Total Bilirubin AST ALT Alkaline Phosphatase Total Protein Albumin Globulin Albumin/Globulin Ratio 06/07/18 06/07/18 06/07/18 04:30 04:30 04:30 WBC 14.9 H RBC 3.16 L Hgb 8.6 L Hct 26.0 L MCV 82.4 MCH 27.1 MCHC 33.0 RDW 16.4 H Plt Count 350 MPV Neut % (Auto) Lymph % (Auto) Lyman % (Auto) Eos % (Auto) Baso % (Auto) Neut # (Auto) Lymph # (Auto) Lyman # (Auto) Eos # (Auto) Baso # (Auto) Neutrophils % (Manual) Band Neutrophils % Lymphocytes % (Manual) Monocytes % (Manual) Eosinophils % (Manual) Myelocytes % Platelet Estimate Large Platelets Hypochromasia (manual) Anisocytosis (manual) Tear Drop Cells Ovalocytes Schistocytes pCO2 40 pO2 89 HCO3 30.7 H ABG pH 7.50 H ABG Total CO2 32.4 H ABG O2 Saturation 100.7 H ABG O2 Content 14.0 L ABG Base Excess 7.4 H ABG Hemoglobin 10.2 L ABG Carboxyhemoglobin 2.1 H POC ABG HHb (Measured) -0.7 L ABG Methemoglobin 1.7 ABG O2 Capacity 13.9 L Forrest Test Yes A-a O2 Difference 218.0 Hgb O2 Saturation 96.9 Vent Mode A/c Mechanical Rate 18 FiO2 50.0 Tidal Volume 400 PEEP 5 Sodium 138 Potassium 3.9 Chloride 101 Carbon Dioxide 31 H Anion Gap 10 BUN 22 H Creatinine 0.7 L Est GFR ( Amer) > 60 Est GFR (Non-Af Amer) > 60 POC Glucose (mg/dL) Random Glucose 168 H Calcium 8.4 Total Bilirubin AST ALT Alkaline Phosphatase Total Protein Albumin Globulin Albumin/Globulin Ratio 06/07/18 06/07/18 06/07/18 04:51 11:01 16:25 WBC RBC Hgb Hct MCV MCH MCHC RDW Plt Count MPV Neut % (Auto) Lymph % (Auto) Lyman % (Auto) Eos % (Auto) Baso % (Auto) Neut # (Auto) Lymph # (Auto) Lyman # (Auto) Eos # (Auto) Baso # (Auto) Neutrophils % (Manual) Band Neutrophils % Lymphocytes % (Manual) Monocytes % (Manual) Eosinophils % (Manual) Myelocytes % Platelet Estimate Large Platelets Hypochromasia (manual) Anisocytosis (manual) Tear Drop Cells Ovalocytes Schistocytes pCO2 pO2 HCO3 ABG pH ABG Total CO2 ABG O2 Saturation ABG O2 Content ABG Base Excess ABG Hemoglobin ABG Carboxyhemoglobin POC ABG HHb (Measured) ABG Methemoglobin ABG O2 Capacity Forrest Test A-a O2 Difference Hgb O2 Saturation Vent Mode Mechanical Rate FiO2 Tidal Volume PEEP Sodium Potassium Chloride Carbon Dioxide Anion Gap BUN Creatinine Est GFR ( Amer) Est GFR (Non-Af Amer) POC Glucose (mg/dL) 176 H 161 H 153 H Random Glucose Calcium Total Bilirubin AST ALT Alkaline Phosphatase Total Protein Albumin Globulin Albumin/Globulin Ratio Microbiology 05/31/18 12:34 Blood-Venous Blood Culture - Final NO GROWTH AFTER 5 DAYS 05/31/18 12:34 Blood-Venous Gram Stain - Final TEST NOT PERFORMED 05/31/18 12:44 Blood-Venous Blood Culture - Final NO GROWTH AFTER 5 DAYS 05/31/18 12:44 Blood-Venous Gram Stain - Final TEST NOT PERFORMED 05/28/18 05:00 Bronchial Washings Bronchial Culture - Final Renee Albicans 05/27/18 21:00 Blood-Venous Blood Culture - Final NO GROWTH AFTER 5 DAYS 05/27/18 21:00 Blood-Venous Gram Stain - Final TEST NOT PERFORMED 05/27/18 21:05 Blood-Venous Blood Culture - Final NO GROWTH AFTER 5 DAYS 05/27/18 21:05 Blood-Venous Gram Stain - Final TEST NOT PERFORMED 05/26/18 14:13 Blood-Venous Blood Culture - Final NO GROWTH AFTER 5 DAYS 05/26/18 14:13 Blood-Venous Gram Stain - Final TEST NOT PERFORMED 05/27/18 21:00 Trachasp Gram Stain - Final 05/27/18 21:00 Trachasp Sputum Culture - Final Yeast Species 05/24/18 14:15 Blood-Venous Blood Culture - Final NO GROWTH AFTER 5 DAYS 05/24/18 14:15 Blood-Venous Gram Stain - Final TEST NOT PERFORMED 05/24/18 14:00 Blood-Venous Blood Culture - Final NO GROWTH AFTER 5 DAYS 05/24/18 14:00 Blood-Venous Gram Stain - Final TEST NOT PERFORMED 05/27/18 21:00 Urine,Catheterized Urine Culture - Final No Growth (<1,000 CFU/ML) 05/24/18 15:00 Sputum Gram Stain - Final 05/24/18 15:00 Sputum Sputum Culture - Final Yeast Species 05/24/18 09:35 Urine,Catheterized Urine Culture - Final No Growth (<1,000 CFU/ML) 05/20/18 15:31 Blood-Venous Blood Culture - Final NO GROWTH AFTER 5 DAYS 05/20/18 15:31 Blood-Venous Gram Stain - Final TEST NOT PERFORMED 05/20/18 15:42 Blood-Venous Blood Culture - Final NO GROWTH AFTER 5 DAYS 05/20/18 15:42 Blood-Venous Gram Stain - Final TEST NOT PERFORMED 05/24/18 09:35 Naris MRSA Culture (Admit) - Final MRSA NOT DETECTED 05/21/18 16:57 Sputum Induced Gram Stain - Final 05/21/18 16:57 Sputum Induced Sputum Culture - Final Yeast Species 05/12/18 07:50 Blood Blood Culture - Final NO GROWTH AFTER 5 DAYS 05/12/18 07:50 Blood Gram Stain - Final TEST NOT PERFORMED 05/12/18 Unknown Blood Blood Culture - Final NO GROWTH AFTER 5 DAYS 05/12/18 Unknown Blood Gram Stain - Final TEST NOT PERFORMED 05/12/18 08:40 Urine,Catheterized Urine Culture - Final Escherichia Coli Accession No. : [id number] Patient Name / ID : TANNER BOWIE / [id number] Exam Date : 06/07/2018 04:04:41 ( Approved ) Study Comment : Sex / Age : M / [id number] Creator : Naveen Hernandez MD Dictator : Naveen Hernandez MD Slasher Machine Operator : Refrigeration Lead : Naveen Hernandez MD Approver2 : Report Date : 06/07/2018 07:58:56 My Comment : Date of service: 06/07/2018 HISTORY: Intubated COMPARISON: Portable chest 06/06/2018 8:01 p.m.. FINDINGS: LUNGS: Endotracheal tube is been advanced to terminate 3.7 cm cephalad to the brianne. No significant interval change in nasogastric tube placement. No interval change in patchy right upper lobe infiltrate with remaining lung capps bilaterally clear. PLEURA: No significant pleural effusion identified, no pneumothorax apparent. CARDIOVASCULAR: Calcific atherosclerotic changes are seen related to the thoracic aorta. Normal cardiac size. No pulmonary vascular congestion. OSSEOUS STRUCTURES: No significant abnormalities. VISUALIZED UPPER ABDOMEN: Normal. OTHER FINDINGS: None. IMPRESSION: No interval change in right upper lobe patchy infiltrate. Assessment and Plan (1) Sepsis syndrome Status: Acute (2) Fever Status: Resolved (3) Hypoxemia Status: Chronic (4) Aspiration pneumonia Status: Acute - Assessment and Plan (Free Text) Assessment: A/P- 82 year old [place] resident male with dementia, admitted with fever initially and had UTI and ? asp pneumonia and was treated with IV antibiotiocs and was fever free and normal wbc and doing ok but few days ago had aspiration pneumonia and hypoxemic and rapid a.fib and is s/p intubation and in ICU. remains intubated and lethargic. low grade fever today wbc trending up today. cxr- right side infiltrates but improved compared to before. admission UA- Pos LE, neg Nitrates admission urine cx- E.Coli pansensitive- treated for this already blood cx- neg x 5 sputum cx- yeast BAL cx- C.Albicans PLan- advise to continue with IV meropenem and clindamycin for added anaerobic coverage.day #13. also advise to continue with IV fluconazole for yeast in sputum.day #11 completed 10 days of IV empiric vanco. monitor wbc and tempts. as per nurse no diarrhea. all labs and imaging and chart notes reviewed. critical care time spent 30 minutes.
[2018-06-07] MEDS: Acetaminophen 650mg/20.3ml solution UD PO PRN (19:37)
[2018-06-08] MEDS: Ipratropium 0.02% Inhal Soln (0.5 mg/2.5 ml) UD IH SCH ×4 (00:06→23:45)
[2018-06-08] MEDS: Acetylcysteine 10% 4 ML IH SCH ×4 (00:06→23:45)
[2018-06-08] MEDS: Meropenem 1 GM in Sodium Chloride 0.9% 100 ML IVPB SCH ×4 (01:11→16:16)
[2018-06-08 04:32] LABS: ABG ALLEN TEST YES; ARTERIAL BLOOD GAS HCO3 30.9 mmol/L (21-28); ARTERIAL BLOOD GAS HEMOGLOBIN 7.8 g/dL (11.7-17.4); ARTERIAL BLOOD GAS O2 CAPACITY 11.1 mL/dL (16-24); ARTERIAL BLOOD GAS O2 SAT 99.2 % (95-98); ARTERIAL BLOOD GAS PCO2 37 mm/Hg (35-45); ARTERIAL BLOOD GAS PH 7.53 (7.35-7.45); ARTERIAL BLOOD GAS PO2 132 mm/Hg (80-100)
[2018-06-08] MEDS: Artificial Tears Opht Soln OU SCH ×4 (05:12→21:48)
[2018-06-08 05:24] LABS: BASO % 0.3 % (0.0-2.0); EOS # 0.2 K/uL (0.0-0.7); EOS % 1.9 % (0.0-4.0); HEMOGLOBIN 7.8 g/dL (12.0-18.0); LYMPH # 0.9 K/uL (1.0-4.3); LYMPH % 8.8 % (20.0-40.0); MEAN CELL VOLUME 82.7 fl (80.0-94.0); MEAN CORPUSCULAR HEMOGLOBIN 26.8 pg (27.0-31.0); MEAN CORPUSCULAR HGB CONC 32.4 g/dL (33.0-37.0); MEAN PLATELET VOLUME 9.4 fl (7.2-11.7); MONO % 10.3 % (0.0-10.0); NEUT # 7.7 K/uL (1.8-7.0); NEUT % 78.7 % (50.0-75.0); RBC 2.9 Mil/uL (4.40-5.90); RED CELL DISTRIBUTION WIDTH 16.8 % (11.5-14.5); WHITE BLOOD COUNT 9.8 K/uL (4.8-10.8)
[2018-06-08 05:30] LABS: BLOOD UREA NITROGEN 26 mg/dl (9-20); CALCIUM 8.6 mg/dL (8.4-10.2); GFR NON-AFRICAN AMERICAN > 60
[2018-06-08] MEDS: Vitamins A & D Oint UD Foilpak TOP SCH ×2 (08:12→16:26)
--- NOTE | 2018-06-08 08:59 | RAD ---
Date of service: 06/08/2018 HISTORY: Intubated COMPARISON: Portable chest 06/07/2018. FINDINGS: LUNGS: Endotracheal and nasogastric tubes do not appear significantly changed in position. Limited right upper lobe infiltrate remains. Left lung remains clear. PLEURA: No significant pleural effusion identified, no pneumothorax apparent. CARDIOVASCULAR: Calcific atherosclerotic changes are seen related to the thoracic aorta. Normal cardiac size. No pulmonary vascular congestion. OSSEOUS STRUCTURES: No significant abnormalities. VISUALIZED UPPER ABDOMEN: Normal. OTHER FINDINGS: None. IMPRESSION: Limited right upper lobe infiltrate remains. No interval left infiltrate. No pulmonary vascular congestion. ET and orogastric tubes stable.
[2018-06-08] MEDS: Fluconazole IV 100mg/50 ml NS 50 ML IVPB SCH (09:23)
[2018-06-08] MEDS: Enoxaparin 40 mg Syringe SC SCH (09:25)
--- NOTE | 2018-06-08 10:42 | CP.PCM.PN ---
Subjective - Date & Time of Evaluation Date of Evaluation: 06/08/18 Time of Evaluation: 10:42 - Subjective Subjective: ID Note- Pt. seen and examined today in ICU. remains intubated and lethargic. afebrile. Objective - Vital Signs/Intake and Output Vital Signs (last 24 hours): Temp Pulse Resp BP Pulse Ox 98.8 F 57 L 20 141/85 100 06/08/18 08:00 06/08/18 10:00 06/08/18 10:00 06/08/18 10:00 06/08/18 10:00 Intake and Output: 06/08/18 06/08/18 06:59 18:59 Intake Total 1142 330 Output Total 825 Balance 317 330 - Medications Medications: Current Medications Acetaminophen (Tylenol 650mg/20.3ml Solution Ud) 650 mg PO Q4 PRN PRN Reason: Temperature Last Admin: 06/07/18 19:37 Dose: 650 mg Acetylcysteine (Mucomyst 10% 4ml) 2 ml IH RQ8 KEN Last Admin: 06/08/18 07:36 Dose: 2 ml Alendronate Sodium (Fosamax) 70 mg PO FR KEN Last Admin: 05/21/18 10:29 Dose: 70 mg Artificial Tears (Artificial Tears) 2 drop OU Q6 KEN Last Admin: 06/08/18 09:24 Dose: 2 drop Calcium Carbonate (Oscal) 500 mg PO BID KEN Last Admin: 05/21/18 10:26 Dose: 500 mg Cholecalciferol (Vitamin D) 1,000 intlu PO BID KEN Last Admin: 05/21/18 10:27 Dose: 1,000 intlu Donepezil HCl (Aricept) 5 mg PO HS [facility] Last Admin: 05/20/18 21:28 Dose: 5 mg Enoxaparin Sodium (Lovenox) 40 mg SC DAILY KEN; Protocol Last Admin: 06/08/18 09:25 Dose: 40 mg Fluconazole (Diflucan Iv 100 Mg/50 Ml Ns) 50 mls @ 50 mls/hr IVPB DAILY KEN; Protocol Last Admin: 06/08/18 09:23 Dose: 50 mls/hr Meropenem 1 gm/ Sodium (Chloride) 100 mls @ 100 mls/hr IVPB Q8 KEN; Protocol Last Admin: 06/08/18 08:10 Dose: 100 mls/hr Ipratropium [place] (Atrovent) 0.5 mg IH RQ8 [facility] Last Admin: 06/08/18 07:36 Dose: 0.5 mg Memantine (Namenda) 5 mg PO Q12 [facility] Last Admin: 05/21/18 10:25 Dose: 5 mg Metoprolol Tartrate (Lopressor) 50 mg PO Q12 [facility] Last Admin: 06/08/18 09:22 Dose: 50 mg Multivitamins/Minerals (Therapeutic-M Tab) 1 tab PO DAILY [facility] Last Admin: 05/21/18 10:27 Dose: 1 tab Senna/Docusate Sodium (Senokot S 50 Mg-8.6 Mg) 1 tab PO HS [facility] Last Admin: 05/20/18 21:29 Dose: 1 tab Tamsulosin HCl (Flomax) 0.4 mg PO QPM [facility] Last Admin: 05/20/18 17:19 Dose: 0.4 mg Vitamin A (Vitamin A & D Oint Ud Foilpak) 1 ea TOP BID [facility] Last Admin: 06/08/18 08:12 Dose: 1 ea - Labs Labs: - Additional Findings Additional findings: - Constitutional Appears: Chronically Ill - ENT Exam Additional comments: ET tube in place - Respiratory Exam Additional comments: breath sounds heard b/l is on the vent - Cardiovascular Exam Cardiovascular Exam: Tachycardia, +S1, +S2 - GI/Abdominal Exam GI & Abdominal Exam: Soft, Normal Bowel Sounds Additional comments: ND, NT - Extremities Exam Extremities Exam: Normal Inspection - Neurological Exam Additional comments: Intubated and lethargic Laboratory Results - last 72 hr 06/05/18 06/05/18 06/06/18 16:26 21:20 04:30 WBC 14.0 H RBC 3.49 L Hgb 9.3 L Hct 28.9 L MCV 82.8 MCH 26.7 L MCHC 32.2 L RDW 16.4 H Plt Count 343 MPV 10.0 Neut % (Auto) 86.1 H Lymph % (Auto) 5.6 L [place] % (Auto) 6.4 Eos % (Auto) 1.3 Baso % (Auto) 0.6 Neut # (Auto) 12.0 H Lymph # (Auto) 0.8 L [place] # (Auto) 0.9 H Eos # (Auto) 0.2 Baso # (Auto) 0.1 pCO2 pO2 HCO3 ABG pH ABG Total CO2 ABG O2 Saturation ABG O2 Content ABG Base Excess ABG Hemoglobin ABG Carboxyhemoglobin POC ABG HHb (Measured) ABG Methemoglobin ABG O2 Capacity [place] Test A-a O2 Difference Hgb O2 Saturation Vent Mode Mechanical Rate FiO2 Tidal Volume PEEP Pressure Support Sodium Potassium Chloride Carbon Dioxide Anion Gap BUN Creatinine Est GFR ( Amer) Est GFR (Non-Af Amer) POC Glucose (mg/dL) 153 H 156 H Random Glucose Calcium Total Bilirubin AST ALT Alkaline Phosphatase Total Protein Albumin Globulin Albumin/Globulin Ratio 06/06/18 06/06/18 06/06/18 04:30 05:01 09:48 WBC RBC Hgb Hct MCV MCH MCHC RDW Plt Count MPV Neut % (Auto) Lymph % (Auto) [place] % (Auto) Eos % (Auto) Baso % (Auto) Neut # (Auto) Lymph # (Auto) [place] # (Auto) Eos # (Auto) Baso # (Auto) pCO2 pO2 HCO3 ABG pH ABG Total CO2 ABG O2 Saturation ABG O2 Content ABG Base Excess ABG Hemoglobin ABG Carboxyhemoglobin POC ABG HHb (Measured) ABG Methemoglobin ABG O2 Capacity [place] Test A-a O2 Difference Hgb O2 Saturation Vent Mode Mechanical Rate FiO2 Tidal Volume PEEP Pressure Support Sodium 138 Potassium 4.2 Chloride 99 Carbon Dioxide 31 H Anion Gap 12 BUN 21 H Creatinine 0.6 L Est GFR ( Amer) > 60 Est GFR (Non-Af Amer) > 60 POC Glucose (mg/dL) 154 H 149 H Random Glucose 142 H Calcium 8.3 L Total Bilirubin 0.5 AST 30 ALT 36 Alkaline Phosphatase 101 Total Protein 6.9 Albumin 2.9 L D Globulin 3.9 Albumin/Globulin Ratio 0.7 L 06/06/18 06/06/18 06/06/18 11:17 16:27 20:30 WBC RBC Hgb Hct MCV MCH MCHC RDW Plt Count MPV Neut % (Auto) Lymph % (Auto) [place] % (Auto) Eos % (Auto) Baso % (Auto) Neut # (Auto) Lymph # (Auto) [place] # (Auto) Eos # (Auto) Baso # (Auto) pCO2 45 pO2 82 HCO3 33.3 H ABG pH 7.50 H ABG Total CO2 36.5 H ABG O2 Saturation 99.4 H ABG O2 Content 12.9 L ABG Base Excess 10.8 H ABG Hemoglobin 9.5 L ABG Carboxyhemoglobin 2.0 H POC ABG HHb (Measured) 0.6 ABG Methemoglobin 1.4 ABG O2 Capacity 13.0 L [place] Test Yes A-a O2 Difference 218.0 Hgb O2 Saturation 96.1 Vent Mode A/c Mechanical Rate 400 FiO2 50.0 Tidal Volume 18 PEEP 5 Pressure Support Sodium Potassium Chloride Carbon Dioxide Anion Gap BUN Creatinine Est GFR ( Amer) Est GFR (Non-Af Amer) POC Glucose (mg/dL) 190 H 210 H Random Glucose Calcium Total Bilirubin AST ALT Alkaline Phosphatase Total Protein Albumin Globulin Albumin/Globulin Ratio 06/06/18 06/07/18 06/07/18 20:43 04:30 04:30 WBC 14.9 H RBC 3.16 L Hgb 8.6 L Hct 26.0 L MCV 82.4 MCH 27.1 MCHC 33.0 RDW 16.4 H Plt Count 350 MPV Neut % (Auto) Lymph % (Auto) [place] % (Auto) Eos % (Auto) Baso % (Auto) Neut # (Auto) Lymph # (Auto) [place] # (Auto) Eos # (Auto) Baso # (Auto) pCO2 pO2 HCO3 ABG pH ABG Total CO2 ABG O2 Saturation ABG O2 Content ABG Base Excess ABG Hemoglobin ABG Carboxyhemoglobin POC ABG HHb (Measured) ABG Methemoglobin ABG O2 Capacity [place] Test A-a O2 Difference Hgb O2 Saturation Vent Mode Mechanical Rate FiO2 Tidal Volume PEEP Pressure Support Sodium 138 Potassium 3.9 Chloride 101 Carbon Dioxide 31 H Anion Gap 10 BUN 22 H Creatinine 0.7 L Est GFR ( Amer) > 60 Est GFR (Non-Af Amer) > 60 POC Glucose (mg/dL) 213 H Random Glucose 168 H Calcium 8.4 Total Bilirubin AST ALT Alkaline Phosphatase Total Protein Albumin Globulin Albumin/Globulin Ratio 06/07/18 06/07/18 06/07/18 04:30 04:51 11:01 WBC RBC Hgb Hct MCV MCH MCHC RDW Plt Count MPV Neut % (Auto) Lymph % (Auto) [place] % (Auto) Eos % (Auto) Baso % (Auto) Neut # (Auto) Lymph # (Auto) [place] # (Auto) Eos # (Auto) Baso # (Auto) pCO2 40 pO2 89 HCO3 30.7 H ABG pH 7.50 H ABG Total CO2 32.4 H ABG O2 Saturation 100.7 H ABG O2 Content 14.0 L ABG Base Excess 7.4 H ABG Hemoglobin 10.2 L ABG Carboxyhemoglobin 2.1 H POC ABG HHb (Measured) -0.7 L ABG Methemoglobin 1.7 ABG O2 Capacity 13.9 L [place] Test Yes A-a O2 Difference 218.0 Hgb O2 Saturation 96.9 Vent Mode A/c Mechanical Rate 18 FiO2 50.0 Tidal Volume 400 PEEP 5 Pressure Support Sodium Potassium Chloride Carbon Dioxide Anion Gap BUN Creatinine Est GFR ( Amer) Est GFR (Non-Af Amer) POC Glucose (mg/dL) 176 H 161 H Random Glucose Calcium Total Bilirubin AST ALT Alkaline Phosphatase Total Protein Albumin Globulin Albumin/Globulin Ratio 06/07/18 06/07/18 06/08/18 16:25 20:47 04:01 WBC RBC Hgb Hct MCV MCH MCHC RDW Plt Count MPV Neut % (Auto) Lymph % (Auto) [place] % (Auto) Eos % (Auto) Baso % (Auto) Neut # (Auto) Lymph # (Auto) [place] # (Auto) Eos # (Auto) Baso # (Auto) pCO2 37 pO2 132 H HCO3 30.9 H ABG pH 7.53 H ABG Total CO2 32.0 H ABG O2 Saturation 99.2 H ABG O2 Content 11.0 L ABG Base Excess 7.6 H ABG Hemoglobin 7.8 L ABG Carboxyhemoglobin 0.5 POC ABG HHb (Measured) 0.8 ABG Methemoglobin 1.4 ABG O2 Capacity 11.1 L [place] Test Yes A-a O2 Difference 107.0 Hgb O2 Saturation 97.4 Vent Mode Cpap Mechanical Rate FiO2 40.0 Tidal Volume PEEP 5 Pressure Support 15 Sodium Potassium Chloride Carbon Dioxide Anion Gap BUN Creatinine Est GFR ( Amer) Est GFR (Non-Af Amer) POC Glucose (mg/dL) 153 H 170 H Random Glucose Calcium Total Bilirubin AST ALT Alkaline Phosphatase Total Protein Albumin Globulin Albumin/Globulin Ratio 06/08/18 06/08/18 06/08/18 04:45 04:45 05:05 WBC 9.8 RBC 2.90 L Hgb 7.8 L Hct 24.0 L MCV 82.7 MCH 26.8 L MCHC 32.4 L RDW 16.8 H Plt Count 306 MPV 9.4 Neut % (Auto) 78.7 H Lymph % (Auto) 8.8 L [place] % (Auto) 10.3 H Eos % (Auto) 1.9 Baso % (Auto) 0.3 Neut # (Auto) 7.7 H Lymph # (Auto) 0.9 L [place] # (Auto) 1.0 H Eos # (Auto) 0.2 Baso # (Auto) 0.0 pCO2 pO2 HCO3 ABG pH ABG Total CO2 ABG O2 Saturation ABG O2 Content ABG Base Excess ABG Hemoglobin ABG Carboxyhemoglobin POC ABG HHb (Measured) ABG Methemoglobin ABG O2 Capacity [place] Test A-a O2 Difference Hgb O2 Saturation Vent Mode Mechanical Rate FiO2 Tidal Volume PEEP Pressure Support Sodium 138 Potassium 4.0 Chloride 102 Carbon Dioxide 33 H Anion Gap 7 L BUN 26 H Creatinine 0.7 L Est GFR ( Amer) > 60 Est GFR (Non-Af Amer) > 60 POC Glucose (mg/dL) 145 H Random Glucose 140 H Calcium 8.6 Total Bilirubin AST ALT Alkaline Phosphatase Total Protein Albumin Globulin Albumin/Globulin Ratio Microbiology 05/31/18 12:34 Blood-Venous Blood Culture - Final NO GROWTH AFTER 5 DAYS 05/31/18 12:34 Blood-Venous Gram Stain - Final TEST NOT PERFORMED 05/31/18 12:44 Blood-Venous Blood Culture - Final NO GROWTH AFTER 5 DAYS 05/31/18 12:44 Blood-Venous Gram Stain - Final TEST NOT PERFORMED 05/28/18 05:00 Bronchial Washings Bronchial Culture - Final Renee Albicans 05/27/18 21:00 Blood-Venous Blood Culture - Final NO GROWTH AFTER 5 DAYS 05/27/18 21:00 Blood-Venous Gram Stain - Final TEST NOT PERFORMED 05/27/18 21:05 Blood-Venous Blood Culture - Final NO GROWTH AFTER 5 DAYS 05/27/18 21:05 Blood-Venous Gram Stain - Final TEST NOT PERFORMED 05/26/18 14:13 Blood-Venous Blood Culture - Final NO GROWTH AFTER 5 DAYS 05/26/18 14:13 Blood-Venous Gram Stain - Final TEST NOT PERFORMED 05/27/18 21:00 Trachasp Gram Stain - Final 05/27/18 21:00 Trachasp Sputum Culture - Final Yeast Species 05/24/18 14:15 Blood-Venous Blood Culture - Final NO GROWTH AFTER 5 DAYS 05/24/18 14:15 Blood-Venous Gram Stain - Final TEST NOT PERFORMED 05/24/18 14:00 Blood-Venous Blood Culture - Final NO GROWTH AFTER 5 DAYS 05/24/18 14:00 Blood-Venous Gram Stain - Final TEST NOT PERFORMED 05/27/18 21:00 Urine,Catheterized Urine Culture - Final No Growth (<1,000 CFU/ML) 05/24/18 15:00 Sputum Gram Stain - Final 05/24/18 15:00 Sputum Sputum Culture - Final Yeast Species 05/24/18 09:35 Urine,Catheterized Urine Culture - Final No Growth (<1,000 CFU/ML) 05/20/18 15:31 Blood-Venous Blood Culture - Final NO GROWTH AFTER 5 DAYS 05/20/18 15:31 Blood-Venous Gram Stain - Final TEST NOT PERFORMED 05/20/18 15:42 Blood-Venous Blood Culture - Final NO GROWTH AFTER 5 DAYS 05/20/18 15:42 Blood-Venous Gram Stain - Final TEST NOT PERFORMED 05/24/18 09:35 Naris MRSA Culture (Admit) - Final MRSA NOT DETECTED 05/21/18 16:57 Sputum Induced Gram Stain - Final 05/21/18 16:57 Sputum Induced Sputum Culture - Final Yeast Species 05/12/18 07:50 Blood Blood Culture - Final NO GROWTH AFTER 5 DAYS 05/12/18 07:50 Blood Gram Stain - Final TEST NOT PERFORMED 05/12/18 Unknown Blood Blood Culture - Final NO GROWTH AFTER 5 DAYS 05/12/18 Unknown Blood Gram Stain - Final TEST NOT PERFORMED 05/12/18 08:40 Urine,Catheterized Urine Culture - Final Escherichia Coli Assessment and Plan (1) Sepsis syndrome Status: Acute (2) Fever Status: Resolved (3) Hypoxemia Status: Chronic (4) Aspiration pneumonia Status: Acute - Assessment and Plan (Free Text) Assessment: A/P- 82 year old [place] resident male with dementia, admitted with fever initially and had UTI and ? asp pneumonia and was treated with IV antibiotiocs and was fever free and normal wbc and doing ok but few days ago had aspiration pneumonia and hypoxemic and rapid a.fib and is s/p intubation and in ICU. remains intubated and lethargic. afebrile minimal leukocytois resolved today. cxr- right side infiltrates but improved compared to before. admission UA- Pos LE, neg Nitrates admission urine cx- E.Coli pansensitive- treated for this already blood cx- neg x 5 sputum cx- yeast BAL cx- C.Albicans PLan- advise to continue with IV meropenem and clindamycin for added anaerobic coverage.day #14. also advise to continue with IV fluconazole for yeast in sputum.day #12. advise 3 more days of IV fluconzole. completed 10 days of IV empiric vanco. all labs and imaging and chart notes reviewed. critical care time spent 30 minutes.
--- NOTE | 2018-06-08 10:43 | CP.PCM.PN ---
Subjective - Date & Time of Evaluation Date of Evaluation: 06/08/18 Time of Evaluation: 10:42 - Subjective Subjective: no overnight events Objective - Vital Signs/Intake and Output Vital Signs (last 24 hours): Temp Pulse Resp BP Pulse Ox 98.8 F 57 L 20 141/85 100 06/08/18 08:00 06/08/18 10:00 06/08/18 10:00 06/08/18 10:00 06/08/18 10:00 Intake and Output: 06/08/18 06/08/18 06:59 18:59 Intake Total 1142 330 Output Total 825 Balance 317 330 - Medications Medications: Current Medications Acetaminophen (Tylenol 650mg/20.3ml Solution Ud) 650 mg PO Q4 PRN PRN Reason: Temperature Last Admin: 06/07/18 19:37 Dose: 650 mg Acetylcysteine (Mucomyst 10% 4ml) 2 ml IH RQ8 KEN Last Admin: 06/08/18 07:36 Dose: 2 ml Alendronate Sodium (Fosamax) 70 mg PO FR KEN Last Admin: 05/21/18 10:29 Dose: 70 mg Artificial Tears (Artificial Tears) 2 drop OU Q6 KEN Last Admin: 06/08/18 09:24 Dose: 2 drop Calcium Carbonate (Oscal) 500 mg PO BID [facility]EN Last Admin: 05/21/18 10:26 Dose: 500 mg Cholecalciferol (Vitamin D) 1,000 intlu PO BID [facility] Last Admin: 05/21/18 10:27 Dose: 1,000 intlu Donepezil HCl (Aricept) 5 mg PO HS [facility] Last Admin: 05/20/18 21:28 Dose: 5 mg Enoxaparin Sodium (Lovenox) 40 mg SC DAILY KEN; Protocol Last Admin: 06/08/18 09:25 Dose: 40 mg Fluconazole (Diflucan Iv 100 Mg/50 Ml Ns) 50 mls @ 50 mls/hr IVPB DAILY KEN; Protocol Last Admin: 06/08/18 09:23 Dose: 50 mls/hr Meropenem 1 gm/ Sodium (Chloride) 100 mls @ 100 mls/hr IVPB Q8 KEN; Protocol Last Admin: 06/08/18 08:10 Dose: 100 mls/hr Ipratropium [place] (Atrovent) 0.5 mg IH RQ8 KEN Last Admin: 06/08/18 07:36 Dose: 0.5 mg Memantine (Namenda) 5 mg PO Q12 [facility]EN Last Admin: 05/21/18 10:25 Dose: 5 mg Metoprolol Tartrate (Lopressor) 50 mg PO Q12 [facility] Last Admin: 06/08/18 09:22 Dose: 50 mg Multivitamins/Minerals (Therapeutic-M Tab) 1 tab PO DAILY [facility] Last Admin: 05/21/18 10:27 Dose: 1 tab Senna/Docusate Sodium (Senokot S 50 Mg-8.6 Mg) 1 tab PO HS [facility] Last Admin: 05/20/18 21:29 Dose: 1 tab Tamsulosin HCl (Flomax) 0.4 mg PO QPM [facility] Last Admin: 05/20/18 17:19 Dose: 0.4 mg Vitamin A (Vitamin A & D Oint Ud Foilpak) 1 ea TOP BID [facility] Last Admin: 06/08/18 08:12 Dose: 1 ea - Labs Labs: 06/08/18 04:45 06/08/18 04:45 PT 15.7 Seconds (9.8-13.1) H 05/12/18 07:50 INR 1.4 05/12/18 07:50 APTT 34.4 Seconds (25.6-37.1) 05/12/18 07:50 - Neck Exam Neck Exam: Normal Inspection - Cardiovascular Exam Cardiovascular Exam: REGULAR RHYTHM - GI/Abdominal Exam GI & Abdominal Exam: Soft, Normal Bowel Sounds Assessment and Plan - Assessment and Plan (Free Text) Assessment: 82 yo male with dysphagia clarify goals of care Tube feeds for now
--- NOTE | 2018-06-08 12:34 | CP.CCUPN ---
CCU Subjective - Physician Review Subjective (Free Text): 06/08/18 12:32 The patient was Seen/interviewed and examined by me at the bedside during ICU round, Medical records reviewed and Management issues were discussed and formulated with the house staff. Events reviewed Patient is a 81 years old male with past medical history of hypertension, diabetes and dementia who initially presented to the emergency room by EMS from half-way for evaluation of fever and sepsis He was transferred to the intensive care unit on May 24 after MEDICAL OFFICE CLERK was called due to hypoxemia with hypotension, at that time his blood pressure was 96/50, HR 93 RR 22 and oxygen saturation was 82% and required intubation and mechanical ventilation Currently he is managed in the ICU for acute hypoxemic respiratory failure secondary to bilateral pneumonia, severe sepsis/septic shock due to E. coli urinary tract infection This morning the patient is totally of all sedation but he still not following command, lethargic, non verbal On PRVC 400/18/50% PEEP-5 He was placed on CPAP trial tolerating so far, however due to very poor mental status we are unable wean to extubate And the plan is to the discussed with the son for trach/Peg CCU Objective - Vital Signs / Intake & Output Vital Signs (Last 4 hours): Vital Signs Temp Pulse Resp BP Pulse Ox 06/08/18 12:00 98.8 F 64 18 142/76 100 06/08/18 11:00 66 19 141/100 H 100 06/08/18 10:00 57 L 20 141/85 100 06/08/18 09:22 70 145/76 Intake and Output (Last 8hrs): Intake & Output 06/07/18 06/08/18 06/08/18 22:59 06:59 14:59 Intake Total 887 794 550 Output Total 800 825 Balance 87 -31 550 Weight 147 lb 6.4 oz Intake: IV 8 14 Intake, Piggyback 199 100 150 Tube Feeding 480 480 300 Free Water Flush 200 200 100 Output: Urine 800 825 Urethral (Cerrato) 800 825 - Physical Exam Head: Positive for: Atraumatic, Normocephalic Pupils: Positive for: PERRL Extroacular Muscles: Positive for: EOMI Conjunctiva: Positive for: Normal. Negative for: Injected, Icteric Mouth: Positive for: Moist Mucous Membranes Neck: Positive for: Normal Range of Motion, Trachea Midline Respiratory/Chest: Positive for: Good Air Exchange, Rales, Rhonchi. Negative for: Respiratory Distress, Accessory Muscle Use, Wheezes Cardiovascular: Positive for: Regular Rate and Rhythm, Normal S1, S2. Negative for: Murmurs Abdomen: Positive for: Normal Bowel Sounds. Negative for: Tenderness, Distention Neurological: Positive for: Other (opens eyes occasionally) - Medications Active Medications: Active Medications Generic Name Dose Route Start Last Admin Trade Name Freq PRN Reason Stop Dose Admin Acetaminophen 650 mg 05/26/18 20:45 06/07/18 19:37 Tylenol 650mg/20.3ml Solution Ud PO 650 mg Q4 PRN Administration Temperature Acetylcysteine 2 ml 05/17/18 16:00 06/08/18 07:36 Mucomyst 10% 4ml IH 2 ml RQ8 KEN Administration Alendronate Sodium 70 mg 05/21/18 09:00 05/21/18 10:29 Fosamax PO 70 mg FR KEN Administration Artificial Tears 2 drop 05/17/18 22:00 06/08/18 09:24 Artificial Tears OU 2 drop Q6 KEN Administration Calcium Carbonate 500 mg 05/17/18 17:00 05/21/18 10:26 Oscal PO 500 mg BID KEN Administration Cholecalciferol 1,000 intlu 05/17/18 17:00 05/21/18 10:27 Vitamin D PO 1,000 intlu BID KEN Administration Donepezil HCl 5 mg 05/17/18 22:00 05/20/18 21:28 Aricept PO 5 mg HS KEN Administration Enoxaparin Sodium 40 mg 06/07/18 11:30 06/08/18 09:25 Lovenox SC 40 mg DAILY KEN Administration Protocol Fluconazole 50 mls @ 50 mls/hr 06/08/18 09:00 06/08/18 09:23 Diflucan Iv 100 Mg/50 Ml Ns IVPB 50 mls/hr DAILY KEN Administration Protocol Meropenem 1 gm/ Sodium 100 mls @ 100 mls/hr 06/08/18 01:00 06/08/18 08:10 Chloride IVPB 100 mls/hr Q8 KEN Administration Protocol Ipratropium [place] 0.5 mg 06/08/18 00:00 06/08/18 07:36 Atrovent IH 0.5 mg RQ8 KEN Administration Memantine 5 mg 05/17/18 21:00 05/21/18 10:25 Namenda PO 5 mg Q12 KEN Administration Metoprolol Tartrate 50 mg 05/28/18 09:00 06/08/18 09:22 Lopressor PO 50 mg Q12 KEN Administration Multivitamins/Minerals 1 tab 05/18/18 09:00 05/21/18 10:27 Therapeutic-M Tab PO 1 tab DAILY KEN Administration Senna/Docusate Sodium 1 tab 05/17/18 22:00 05/20/18 21:29 Senokot S 50 Mg-8.6 Mg PO 1 tab HS KEN Administration Tamsulosin HCl 0.4 mg 05/17/18 18:00 05/20/18 17:19 Flomax PO 0.4 mg QPM KEN Administration Vitamin A 1 ea 05/16/18 17:45 06/08/18 08:12 Vitamin A & D Oint Ud Foilpak TOP 1 ea BID KEN Administration - Patient Studies Lab Studies: Lab Studies 06/08/18 06/08/18 06/08/18 Range/Units 05:05 04:45 04:45 WBC 9.8 (4.8-10.8) K/uL RBC 2.90 L (4.40-5.90) Mil/uL Hgb 7.8 L (12.0-18.0) g/dL Hct 24.0 L (35.0-51.0) % MCV 82.7 (80.0-94.0) fl MCH 26.8 L (27.0-31.0) pg MCHC 32.4 L (33.0-37.0) g/dL RDW 16.8 H (11.5-14.5) % Plt Count 306 (130-400) K/uL MPV 9.4 (7.2-11.7) fl Neut % (Auto) 78.7 H (50.0-75.0) % Lymph % (Auto) 8.8 L (20.0-40.0) % [place] % (Auto) 10.3 H (0.0-10.0) % Eos % (Auto) 1.9 (0.0-4.0) % Baso % (Auto) 0.3 (0.0-2.0) % Neut # (Auto) 7.7 H (1.8-7.0) K/uL Lymph # (Auto) 0.9 L (1.0-4.3) K/uL [place] # (Auto) 1.0 H (0.0-0.8) K/uL Eos # (Auto) 0.2 (0.0-0.7) K/uL Baso # (Auto) 0.0 (0.0-0.2) K/uL pCO2 (35-45) mm/Hg pO2 (80-100) mm/Hg HCO3 (21-28) mmol/L ABG pH (7.35-7.45) ABG Total CO2 (22-28) mmol/L ABG O2 Saturation (95-98) % ABG O2 Content (15-23) ML/dL ABG Base Excess (-2.0-3.0) mmol/L ABG Hemoglobin (11.7-17.4) g/dL ABG Carboxyhemoglobin (0.5-1.5) % POC ABG HHb (Measured) (0.0-5.0) % ABG Methemoglobin (0.0-3.0) % ABG O2 Capacity (16-24) mL/dL Forrest Test A-a O2 Difference mm/Hg Hgb O2 Saturation (95.0-98.0) % Vent Mode FiO2 % PEEP Pressure Support Sodium 138 (132-148) mmol/l Potassium 4.0 (3.6-5.0) MMOL/L Chloride 102 (98-107) mmol/L Carbon Dioxide 33 H (22-30) mmol/L Anion Gap 7 L (10-20) BUN 26 H (9-20) mg/dl Creatinine 0.7 L (0.8-1.5) mg/dl Est GFR ( Amer) > 60 Est GFR (Non-Af Amer) > 60 POC Glucose (mg/dL) 145 H (65-110) mg/dL Random Glucose 140 H (75-110) mg/dL Calcium 8.6 (8.4-10.2) mg/dL 06/08/18 06/07/18 06/07/18 Range/Units 04:01 20:47 16:25 WBC (4.8-10.8) K/uL RBC (4.40-5.90) Mil/uL Hgb (12.0-18.0) g/dL Hct (35.0-51.0) % MCV (80.0-94.0) fl MCH (27.0-31.0) pg MCHC (33.0-37.0) g/dL RDW (11.5-14.5) % Plt Count (130-400) K/uL MPV (7.2-11.7) fl Neut % (Auto) (50.0-75.0) % Lymph % (Auto) (20.0-40.0) % [place] % (Auto) (0.0-10.0) % Eos % (Auto) (0.0-4.0) % Baso % (Auto) (0.0-2.0) % Neut # (Auto) (1.8-7.0) K/uL Lymph # (Auto) (1.0-4.3) K/uL [place] # (Auto) (0.0-0.8) K/uL Eos # (Auto) (0.0-0.7) K/uL Baso # (Auto) (0.0-0.2) K/uL pCO2 37 (35-45) mm/Hg pO2 132 H (80-100) mm/Hg HCO3 30.9 H (21-28) mmol/L ABG pH 7.53 H (7.35-7.45) ABG Total CO2 32.0 H (22-28) mmol/L ABG O2 Saturation 99.2 H (95-98) % ABG O2 Content 11.0 L (15-23) ML/dL ABG Base Excess 7.6 H (-2.0-3.0) mmol/L ABG Hemoglobin 7.8 L (11.7-17.4) g/dL ABG Carboxyhemoglobin 0.5 (0.5-1.5) % POC ABG HHb (Measured) 0.8 (0.0-5.0) % ABG Methemoglobin 1.4 (0.0-3.0) % ABG O2 Capacity 11.1 L (16-24) mL/dL Forrest Test Yes A-a O2 Difference 107.0 mm/Hg Hgb O2 Saturation 97.4 (95.0-98.0) % Vent Mode Cpap FiO2 40.0 % PEEP 5 Pressure Support 15 Sodium (132-148) mmol/l Potassium (3.6-5.0) MMOL/L Chloride (98-107) mmol/L Carbon Dioxide (22-30) mmol/L Anion Gap (10-20) BUN (9-20) mg/dl Creatinine (0.8-1.5) mg/dl Est GFR ( Amer) Est GFR (Non-Af Amer) POC Glucose (mg/dL) 170 H 153 H (65-110) mg/dL Random Glucose (75-110) mg/dL Calcium (8.4-10.2) mg/dL Laboratory Results - last 24 hr 06/07/18 06/07/18 06/08/18 16:25 20:47 04:01 WBC RBC Hgb Hct MCV MCH MCHC RDW Plt Count MPV Neut % (Auto) Lymph % (Auto) [place] % (Auto) Eos % (Auto) Baso % (Auto) Neut # (Auto) Lymph # (Auto) [place] # (Auto) Eos # (Auto) Baso # (Auto) pCO2 37 pO2 132 H HCO3 30.9 H ABG pH 7.53 H ABG Total CO2 32.0 H ABG O2 Saturation 99.2 H ABG O2 Content 11.0 L ABG Base Excess 7.6 H ABG Hemoglobin 7.8 L ABG Carboxyhemoglobin 0.5 POC ABG HHb (Measured) 0.8 ABG Methemoglobin 1.4 ABG O2 Capacity 11.1 L Forrest Test Yes A-a O2 Difference 107.0 Hgb O2 Saturation 97.4 Vent Mode Cpap FiO2 40.0 PEEP 5 Pressure Support 15 Sodium Potassium Chloride Carbon Dioxide Anion Gap BUN Creatinine Est GFR ( Amer) Est GFR (Non-Af Amer) POC Glucose (mg/dL) 153 H 170 H Random Glucose Calcium 06/08/18 06/08/18 06/08/18 04:45 04:45 05:05 WBC 9.8 RBC 2.90 L Hgb 7.8 L Hct 24.0 L MCV 82.7 MCH 26.8 L MCHC 32.4 L RDW 16.8 H Plt Count 306 MPV 9.4 Neut % (Auto) 78.7 H Lymph % (Auto) 8.8 L [place] % (Auto) 10.3 H Eos % (Auto) 1.9 Baso % (Auto) 0.3 Neut # (Auto) 7.7 H Lymph # (Auto) 0.9 L [place] # (Auto) 1.0 H Eos # (Auto) 0.2 Baso # (Auto) 0.0 pCO2 pO2 HCO3 ABG pH ABG Total CO2 ABG O2 Saturation ABG O2 Content ABG Base Excess ABG Hemoglobin ABG Carboxyhemoglobin POC ABG HHb (Measured) ABG Methemoglobin ABG O2 Capacity Forrest Test A-a O2 Difference Hgb O2 Saturation Vent Mode FiO2 PEEP Pressure Support Sodium 138 Potassium 4.0 Chloride 102 Carbon Dioxide 33 H Anion Gap 7 L BUN 26 H Creatinine 0.7 L Est GFR ( Amer) > 60 Est GFR (Non-Af Amer) > 60 POC Glucose (mg/dL) 145 H Random Glucose 140 H Calcium 8.6 Radiology Impressions: Radiology Impressions Chest X-Ray 06/08/18 06:00 IMPRESSION: Limited right upper lobe infiltrate remains. No interval left infiltrate. No pulmonary vascular congestion. ET and orogastric tubes stable. Fingerstick Blood Sugar Results: 149 Assessment/Plan (1) Acute respiratory failure with hypoxia Current Visit: Yes Status: Acute Priority: High Comment: Vent weaning in progress, Off seations Aggressive pulmonary toilet, chest PT, suctioning (2) Severe sepsis Current Visit: Yes Status: Acute Priority: High Comment: Continue Antibiotics with IV Vancomycin, Diflucan and Meropenem (3) Aspiration pneumonia Current Visit: Yes Status: Acute Priority: High (4) Hyponatremia Current Visit: Yes Status: Resolved Priority: Medium (5) Atrial fibrillation with RVR Current Visit: Yes Status: Resolved (6) Dementia Current Visit: No Status: Chronic Priority: Medium
--- NOTE | 2018-06-08 13:34 | CP.PCM.CON ---
History of Present Illness - History of Present Illness History of Present Illness: Surgery consult note for Dr. Dr. Keita 82 y/o male patient seen and evaluated at bedside. Patient from [facility] with PMHx of Dementia, HTN, and DMII. Patient was brought via EMS to [facility] on 05/12/18 to be evaluated for sepsis and high fever of 102.6. Patient was then transferred to ICU for an CLINIC NURSE due to hypoxemia with hypotension. Patient is currently off sedation, however is not following command and is non verbal. Patient is currently on On PRVC 400/18/50% PEEP-5. As per CCU note, patient was placed on CPAP, however due to very poor mental status unable to extubate. Surgery has been consulted for possible trach/PEG placement PMD: Dr. Hernández PMHx: as noted above SHx: unable to obtain All: Levofloxacin, Penicillins Review of Systems - Review of Systems Systems not reviewed;Unavailable: Intubated Past Patient History - Past Medical History & Family History Past Medical History?: Yes - Past Social History Alcohol: None Drugs: Denies Home Situation {Lives}: Prison - CARDIAC Hx Pacemaker: No - PULMONARY Hx Respiratory Disorders: No - NEUROLOGICAL Hx Neurological Disorder: Yes Hx Dementia: Yes - HEENT Hx HEENT Problems: No - RENAL Hx Dialysis: No - ENDOCRINE/METABOLIC Hx Endocrine Disorders: Yes Hx Diabetes Mellitus Type 2: Yes - HEMATOLOGICAL/ONCOLOGICAL Hx Cancer: No - INTEGUMENTARY Hx Dermatological Problems: No - MUSCULOSKELETAL/RHEUMATOLOGICAL Hx Musculoskeletal Disorders: Yes Hx Arthritis: Yes Hx Back Pain: Yes - GASTROINTESTINAL Hx Gastrointestinal Disorders: No - GENITOURINARY/GYNECOLOGICAL Hx Genitourinary Disorders: Yes Hx Incontinence: Yes Hx Prostate Problems: Yes Hx Urinary Tract Infection: Yes Other/Comment: Obstructive uropathy - PSYCHIATRIC Hx Psychophysiologic Disorder: Yes Hx Anxiety: Yes - SURGICAL HISTORY Hx Mastectomy: No - ANESTHESIA Hx Anesthesia: No Meds Allergies/Adverse Reactions: Allergies Allergy/AdvReac Type Severity Reaction Status Date / Time levofloxacin [From Levaquin] Allergy RASH Verified 05/12/18 07:39 Penicillins Allergy RASH Verified 05/12/18 07:39 - Medications Medications: Current Medications Acetaminophen (Tylenol 650mg/20.3ml Solution Ud) 650 mg PO Q4 PRN PRN Reason: Temperature Last Admin: 06/07/18 19:37 Dose: 650 mg Acetylcysteine (Mucomyst 10% 4ml) 2 ml IH RQ8 KEN Last Admin: 06/08/18 07:36 Dose: 2 ml Alendronate Sodium (Fosamax) 70 mg PO FR KEN Last Admin: 05/21/18 10:29 Dose: 70 mg Artificial Tears (Artificial Tears) 2 drop OU Q6 KEN Last Admin: 06/08/18 09:24 Dose: 2 drop Calcium Carbonate (Oscal) 500 mg PO BID KEN Last Admin: 05/21/18 10:26 Dose: 500 mg Cholecalciferol (Vitamin D) 1,000 intlu PO BID KEN Last Admin: 05/21/18 10:27 Dose: 1,000 intlu Donepezil HCl (Aricept) 5 mg PO HS [facility] Last Admin: 05/20/18 21:28 Dose: 5 mg Enoxaparin Sodium (Lovenox) 40 mg SC DAILY [facility]; Protocol Last Admin: 06/08/18 09:25 Dose: 40 mg Fluconazole (Diflucan Iv 100 Mg/50 Ml Ns) 50 mls @ 50 mls/hr IVPB DAILY KEN; Protocol Last Admin: 06/08/18 09:23 Dose: 50 mls/hr Meropenem 1 gm/ Sodium (Chloride) 100 mls @ 100 mls/hr IVPB Q8 KEN; Protocol Last Admin: 06/08/18 08:10 Dose: 100 mls/hr Ipratropium [place] (Atrovent) 0.5 mg IH RQ8 KEN Last Admin: 06/08/18 07:36 Dose: 0.5 mg Memantine (Namenda) 5 mg PO Q12 KEN Last Admin: 05/21/18 10:25 Dose: 5 mg Metoprolol Tartrate (Lopressor) 50 mg PO Q12 KEN Last Admin: 06/08/18 09:22 Dose: 50 mg Multivitamins/Minerals (Therapeutic-M Tab) 1 tab PO DAILY [facility] Last Admin: 05/21/18 10:27 Dose: 1 tab Senna/Docusate Sodium (Senokot S 50 Mg-8.6 Mg) 1 tab PO HS [facility] Last Admin: 05/20/18 21:29 Dose: 1 tab Tamsulosin HCl (Flomax) 0.4 mg PO QPM KEN Last Admin: 05/20/18 17:19 Dose: 0.4 mg Vitamin A (Vitamin A & D Oint Ud Foilpak) 1 ea TOP BID KEN Last Admin: 06/08/18 08:12 Dose: 1 ea Physical Exam - Constitutional Appears: Toxic, No Acute Distress - Head Exam Head Exam: ATRAUMATIC, NORMOCEPHALIC - Eye Exam Eye Exam: absent: Scleral icterus - ENT Exam ENT Exam: Mucous Membranes Moist - Neck Exam Neck exam: Positive for: Normal Inspection - Respiratory Exam Respiratory Exam: Decreased Breath Sounds - Cardiovascular Exam Cardiovascular Exam: REGULAR RHYTHM, +S1, +S2 - GI/Abdominal Exam GI & Abdominal Exam: Soft. absent: Distended, Firm, Guarding - Skin Skin Exam: Normal Color Results - Vital Signs Recent Vital Signs: Last Vital Signs Temp 98.8 F 06/08/18 12:00 Pulse 58 L 06/08/18 13:00 Resp 18 06/08/18 13:00 BP 134/76 06/08/18 13:00 Pulse Ox 100 06/08/18 13:00 - Labs Result Diagrams: 06/09/18 04:25 06/09/18 04:25 Labs: Laboratory Results - last 24 hr 06/07/18 06/07/18 06/08/18 16:25 20:47 04:01 WBC RBC Hgb Hct MCV MCH MCHC RDW Plt Count MPV Neut % (Auto) Lymph % (Auto) [place] % (Auto) Eos % (Auto) Baso % (Auto) Neut # (Auto) Lymph # (Auto) [place] # (Auto) Eos # (Auto) Baso # (Auto) pCO2 37 pO2 132 H HCO3 30.9 H ABG pH 7.53 H ABG Total CO2 32.0 H ABG O2 Saturation 99.2 H ABG O2 Content 11.0 L ABG Base Excess 7.6 H ABG Hemoglobin 7.8 L ABG Carboxyhemoglobin 0.5 POC ABG HHb (Measured) 0.8 ABG Methemoglobin 1.4 ABG O2 Capacity 11.1 L Forrest Test Yes A-a O2 Difference 107.0 Hgb O2 Saturation 97.4 Vent Mode Cpap FiO2 40.0 PEEP 5 Pressure Support 15 Sodium Potassium Chloride Carbon Dioxide Anion Gap BUN Creatinine Est GFR ( Amer) Est GFR (Non-Af Amer) POC Glucose (mg/dL) 153 H 170 H Random Glucose Calcium 06/08/18 06/08/18 06/08/18 04:45 04:45 05:05 WBC 9.8 RBC 2.90 L Hgb 7.8 L Hct 24.0 L MCV 82.7 MCH 26.8 L MCHC 32.4 L RDW 16.8 H Plt Count 306 MPV 9.4 Neut % (Auto) 78.7 H Lymph % (Auto) 8.8 L [place] % (Auto) 10.3 H Eos % (Auto) 1.9 Baso % (Auto) 0.3 Neut # (Auto) 7.7 H Lymph # (Auto) 0.9 L [place] # (Auto) 1.0 H Eos # (Auto) 0.2 Baso # (Auto) 0.0 pCO2 pO2 HCO3 ABG pH ABG Total CO2 ABG O2 Saturation ABG O2 Content ABG Base Excess ABG Hemoglobin ABG Carboxyhemoglobin POC ABG HHb (Measured) ABG Methemoglobin ABG O2 Capacity Forrest Test A-a O2 Difference Hgb O2 Saturation Vent Mode FiO2 PEEP Pressure Support Sodium 138 Potassium 4.0 Chloride 102 Carbon Dioxide 33 H Anion Gap 7 L BUN 26 H Creatinine 0.7 L Est GFR ( Amer) > 60 Est GFR (Non-Af Amer) > 60 POC Glucose (mg/dL) 145 H Random Glucose 140 H Calcium 8.6 Assessment & Plan - Assessment and Plan (Free Text) Assessment: 82 y/o male seen and evaluated in ICU, Surgery consulted for possible trach/PEG placement Plan: Tentative plan for trach/possible PEG placement on 06/10/18 continue IV Abx continue pain management Blood thinners will be held day prior further recs per Dr. Keita - Date & Time Date: 06/08/18 Time: 13:43
--- NOTE | 2018-06-08 13:38 | CP.PCM.PN ---
Subjective - Date & Time of Evaluation Date of Evaluation: 06/08/18 Time of Evaluation: 10:00 - Subjective Subjective: F/U Respiratory failure Pt with minimal response to tactile stimuli, open eyes, no following commands Objective - Vital Signs/Intake and Output Vital Signs (last 24 hours): Temp Pulse Resp BP Pulse Ox 98.8 F 58 L 18 134/76 100 06/08/18 12:00 06/08/18 13:00 06/08/18 13:00 06/08/18 13:00 06/08/18 13:00 Intake and Output: 06/08/18 06/08/18 06:59 18:59 Intake Total 1142 550 Output Total 825 Balance 317 550 - Medications Medications: Current Medications Acetaminophen (Tylenol 650mg/20.3ml Solution Ud) 650 mg PO Q4 PRN PRN Reason: Temperature Last Admin: 06/07/18 19:37 Dose: 650 mg Acetylcysteine (Mucomyst 10% 4ml) 2 ml IH RQ8 KEN Last Admin: 06/08/18 07:36 Dose: 2 ml Alendronate Sodium (Fosamax) 70 mg PO FR KEN Last Admin: 05/21/18 10:29 Dose: 70 mg Artificial Tears (Artificial Tears) 2 drop OU Q6 KEN Last Admin: 06/08/18 09:24 Dose: 2 drop Calcium Carbonate (Oscal) 500 mg PO BID KEN Last Admin: 05/21/18 10:26 Dose: 500 mg Cholecalciferol (Vitamin D) 1,000 intlu PO BID KEN Last Admin: 05/21/18 10:27 Dose: 1,000 intlu Donepezil HCl (Aricept) 5 mg PO HS KEN Last Admin: 05/20/18 21:28 Dose: 5 mg Enoxaparin Sodium (Lovenox) 40 mg SC DAILY KEN; Protocol Last Admin: 06/08/18 09:25 Dose: 40 mg Fluconazole (Diflucan Iv 100 Mg/50 Ml Ns) 50 mls @ 50 mls/hr IVPB DAILY KEN; Protocol Last Admin: 06/08/18 09:23 Dose: 50 mls/hr Meropenem 1 gm/ Sodium (Chloride) 100 mls @ 100 mls/hr IVPB Q8 KEN; Protocol Last Admin: 06/08/18 08:10 Dose: 100 mls/hr Ipratropium [place] (Atrovent) 0.5 mg IH RQ8 [facility] Last Admin: 06/08/18 07:36 Dose: 0.5 mg Memantine (Namenda) 5 mg PO Q12 [facility] Last Admin: 05/21/18 10:25 Dose: 5 mg Metoprolol Tartrate (Lopressor) 50 mg PO Q12 [facility] Last Admin: 06/08/18 09:22 Dose: 50 mg Multivitamins/Minerals (Therapeutic-M Tab) 1 tab PO DAILY [facility] Last Admin: 05/21/18 10:27 Dose: 1 tab Senna/Docusate Sodium (Senokot S 50 Mg-8.6 Mg) 1 tab PO HS [facility] Last Admin: 05/20/18 21:29 Dose: 1 tab Tamsulosin HCl (Flomax) 0.4 mg PO QPM [facility] Last Admin: 05/20/18 17:19 Dose: 0.4 mg Vitamin A (Vitamin A & D Oint Ud Foilpak) 1 ea TOP BID [facility] Last Admin: 06/08/18 08:12 Dose: 1 ea - Labs Labs: 06/08/18 04:45 06/08/18 04:45 PT 15.7 Seconds (9.8-13.1) H 05/12/18 07:50 INR 1.4 05/12/18 07:50 APTT 34.4 Seconds (25.6-37.1) 05/12/18 07:50 - Constitutional Appears: Chronically Ill - Head Exam Head Exam: NORMAL INSPECTION - Eye Exam Eye Exam: PERRL - ENT Exam Additional comments: Intubated, OGT - Neck Exam Neck Exam: Normal Inspection - Respiratory Exam Respiratory Exam: Decreased Breath Sounds (at bases), Rhonchi (scattered) - Cardiovascular Exam Cardiovascular Exam: REGULAR RHYTHM - GI/Abdominal Exam GI & Abdominal Exam: Soft, Normal Bowel Sounds - Extremities Exam Additional comments: Edema - Back Exam Additional comments: Sacral ulcer - Neurological Exam Additional comments: Intubated, Lethargic, open eyes to tactile, no following commands - Skin Skin Exam: Warm Assessment and Plan (1) Respiratory failure Status: Acute (2) Aspiration pneumonia Status: Acute (3) E. coli UTI Status: Acute (4) Fever Status: Resolved (5) Sepsis syndrome Status: Acute (6) Hypoxemia Status: Chronic (7) Esophageal dilatation Status: Chronic (8) Dementia Status: Chronic (9) HTN (hypertension) Status: Chronic (10) DMII (diabetes mellitus, type 2) Status: Chronic - Assessment and Plan (Free Text) Plan: Discussed with Pt's son, he agree Tracheostomy/Peg tube. Critical care time: 31 min.
[2018-06-09] MEDS: Meropenem 1 GM in Sodium Chloride 0.9% 100 ML IVPB SCH ×3 (01:19→16:51)
[2018-06-09] MEDS: Artificial Tears Opht Soln OU SCH ×4 (03:34→21:05)
[2018-06-09 04:28] LABS: ABG ALLEN TEST YES; ARTERIAL BLOOD GAS HCO3 32.1 mmol/L (21-28); ARTERIAL BLOOD GAS HEMOGLOBIN 8.2 g/dL (11.7-17.4); ARTERIAL BLOOD GAS O2 CAPACITY 11.3 mL/dL (16-24); ARTERIAL BLOOD GAS O2 CONTENT 11.3 ML/dL (15-23); ARTERIAL BLOOD GAS O2 SAT 99.6 % (95-98); ARTERIAL BLOOD GAS PCO2 38 mm/Hg (35-45); ARTERIAL BLOOD GAS PH 7.54 (7.35-7.45); ARTERIAL BLOOD GAS PO2 91 mm/Hg (80-100); ARTERIAL BLOOD GAS TCO2 33.7 mmol/L (22-28)
[2018-06-09 05:24] LABS: BLOOD UREA NITROGEN 27 mg/dl (9-20); CALCIUM 8.6 mg/dL (8.4-10.2); GFR NON-AFRICAN AMERICAN > 60
[2018-06-09 05:35] LABS: MEAN CELL VOLUME 82.4 fl (80.0-94.0); MEAN CORPUSCULAR HEMOGLOBIN 27.2 pg (27.0-31.0); MEAN CORPUSCULAR HGB CONC 33.1 g/dL (33.0-37.0); RBC 2.89 Mil/uL (4.40-5.90); RED CELL DISTRIBUTION WIDTH 17.2 % (11.5-14.5); WHITE BLOOD COUNT 9.3 K/uL (4.8-10.8)
[2018-06-09 05:38] LABS: HEMOGLOBIN 7.9 g/dL (12.0-18.0)
[2018-06-09] MEDS: Acetylcysteine 10% 4 ML IH SCH ×3 (07:27→23:26)
[2018-06-09] MEDS: Ipratropium 0.02% Inhal Soln (0.5 mg/2.5 ml) UD IH SCH ×3 (07:27→23:26)
[2018-06-09] MEDS: Fluconazole IV 100mg/50 ml NS 50 ML IVPB SCH (09:02)
[2018-06-09] MEDS: Vitamins A & D Oint UD Foilpak TOP SCH ×2 (09:06→16:51)
[2018-06-09] MEDS: Enoxaparin 40 mg Syringe SC SCH (09:32)
--- NOTE | 2018-06-09 11:19 | CP.PCM.PN ---
Subjective - Date & Time of Evaluation Date of Evaluation: 06/09/18 Time of Evaluation: 11:21 - Subjective Subjective: General Surgery Note for Dr. Keita Patient seen and examined at bedside. No acute event overnight. Patient is intubated and on PSV 40%/15/5. Patient to have SBT this am 40%/5/5. Patient is hemodynamically normal and has been afebrile. Receiving glucerna tube feeds 60 cc/hr. Plan for Trach and Peg tube vs G-tube placement 06/10. Objective - Vital Signs/Intake and Output Vital Signs (last 24 hours): Temp Pulse Resp BP Pulse Ox 99.5 F 72 13 136/64 100 06/09/18 08:00 06/09/18 10:00 06/09/18 10:00 06/09/18 10:00 06/09/18 10:00 Intake and Output: 06/09/18 06/09/18 06:59 18:59 Intake Total 1220 390 Output Total 1000 Balance 220 390 - Medications Medications: Current Medications Acetaminophen (Tylenol 650mg/20.3ml Solution Ud) 650 mg PO Q4 PRN PRN Reason: Temperature Last Admin: 06/07/18 19:37 Dose: 650 mg Acetylcysteine (Mucomyst 10% 4ml) 2 ml IH RQ8 [facility] Last Admin: 06/09/18 07:27 Dose: 2 ml Alendronate Sodium (Fosamax) 70 mg PO FR [facility] Last Admin: 05/21/18 10:29 Dose: 70 mg Artificial Tears (Artificial Tears) 2 drop OU Q6 [facility] Last Admin: 06/09/18 09:06 Dose: 2 drop Calcium Carbonate (Oscal) 500 mg PO BID [facility] Last Admin: 05/21/18 10:26 Dose: 500 mg Cholecalciferol (Vitamin D) 1,000 intlu PO BID [facility] Last Admin: 05/21/18 10:27 Dose: 1,000 intlu Donepezil HCl (Aricept) 5 mg PO HS KEN Last Admin: 05/20/18 21:28 Dose: 5 mg Enoxaparin Sodium (Lovenox) 40 mg SC DAILY [facility]; Protocol Last Admin: 06/09/18 09:32 Dose: Not Given Fluconazole (Diflucan Iv 100 Mg/50 Ml Ns) 50 mls @ 50 mls/hr IVPB DAILY [facility]; Protocol Last Admin: 06/09/18 09:02 Dose: 50 mls/hr Meropenem 1 gm/ Sodium (Chloride) 100 mls @ 100 mls/hr IVPB Q8 [facility]; Protocol Last Admin: 06/09/18 09:04 Dose: 100 mls/hr Ipratropium [place] (Atrovent) 0.5 mg IH RQ8 [facility] Last Admin: 06/09/18 07:27 Dose: 0.5 mg Memantine (Namenda) 5 mg PO Q12 [facility] Last Admin: 05/21/18 10:25 Dose: 5 mg Metoprolol Tartrate (Lopressor) 50 mg PO Q12 [facility] Last Admin: 06/09/18 09:05 Dose: 50 mg Multivitamins/Minerals (Therapeutic-M Tab) 1 tab PO DAILY [facility] Last Admin: 05/21/18 10:27 Dose: 1 tab Senna/Docusate Sodium (Senokot S 50 Mg-8.6 Mg) 1 tab PO HS KEN Last Admin: 05/20/18 21:29 Dose: 1 tab Tamsulosin HCl (Flomax) 0.4 mg PO QPM K[facility] Last Admin: 05/20/18 17:19 Dose: 0.4 mg Vitamin A (Vitamin A & D Oint Ud Foilpak) 1 ea TOP BID [facility] Last Admin: 06/09/18 09:06 Dose: 1 ea - Labs Labs: 06/09/18 04:25 06/09/18 04:25 PT 15.7 Seconds (9.8-13.1) H 05/12/18 07:50 INR 1.4 05/12/18 07:50 APTT 34.4 Seconds (25.6-37.1) 05/12/18 07:50 - Constitutional Appears: Cachectic, Chronically Ill - Head Exam Head Exam: ATRAUMATIC, NORMOCEPHALIC - Eye Exam Eye Exam: EOMI, Normal appearance Pupil Exam: PERRL - ENT Exam ENT Exam: Mucous Membranes Dry - Respiratory Exam Additional comments: intubated and on PSV 40%/5/5 - Cardiovascular Exam Cardiovascular Exam: REGULAR RHYTHM - GI/Abdominal Exam GI & Abdominal Exam: Soft, Normal Bowel Sounds. absent: Tenderness - Extremities Exam Additional comments: bilateral heel boots - Neurological Exam Neurological Exam: Altered - Psychiatric Exam Psychiatric exam: Flat Affect - Skin Skin Exam: Dry, Warm Assessment and Plan - Assessment and Plan (Free Text) Assessment: 82 M with inability to maintain airway, prolonged intubation and malnutrition presents for possible tracheostomy and PEG Tube/G-tube placement Plan: Tentative plan for trach/possible PEG placement on 06/10 Will obtain consent from [facility] continue IV Abx continue pain management Positioning and offloading heel boots Medical Management as per ICU Discussed with Dr. Neela Whaley PGY2
--- NOTE | 2018-06-09 12:34 | CP.PCM.PN ---
Subjective - Date & Time of Evaluation Date of Evaluation: 06/09/18 Time of Evaluation: 12:31 - Subjective Subjective: no overnight events Objective - Vital Signs/Intake and Output Vital Signs (last 24 hours): Temp Pulse Resp BP Pulse Ox 99.3 F 68 23 143/65 99 06/09/18 12:00 06/09/18 12:00 06/09/18 12:00 06/09/18 12:00 06/09/18 12:00 Intake and Output: 06/09/18 06/09/18 06:59 18:59 Intake Total 1220 610 Output Total 1000 Balance 220 610 - Medications Medications: Current Medications Acetaminophen (Tylenol 650mg/20.3ml Solution Ud) 650 mg PO Q4 PRN PRN Reason: Temperature Last Admin: 06/07/18 19:37 Dose: 650 mg Acetylcysteine (Mucomyst 10% 4ml) 2 ml IH RQ8 KEN Last Admin: 06/09/18 07:27 Dose: 2 ml Alendronate Sodium (Fosamax) 70 mg PO FR KEN Last Admin: 05/21/18 10:29 Dose: 70 mg Artificial Tears (Artificial Tears) 2 drop OU Q6 KEN Last Admin: 06/09/18 09:06 Dose: 2 drop Calcium Carbonate (Oscal) 500 mg PO BID KEN Last Admin: 05/21/18 10:26 Dose: 500 mg Cholecalciferol (Vitamin D) 1,000 intlu PO BID KEN Last Admin: 05/21/18 10:27 Dose: 1,000 intlu Donepezil HCl (Aricept) 5 mg PO HS KEN Last Admin: 05/20/18 21:28 Dose: 5 mg Enoxaparin Sodium (Lovenox) 40 mg SC DAILY KEN; Protocol Last Admin: 06/09/18 09:32 Dose: Not Given Fluconazole (Diflucan Iv 100 Mg/50 Ml Ns) 50 mls @ 50 mls/hr IVPB DAILY KEN; Protocol Last Admin: 06/09/18 09:02 Dose: 50 mls/hr Meropenem 1 gm/ Sodium (Chloride) 100 mls @ 100 mls/hr IVPB Q8 KEN; Protocol Last Admin: 06/09/18 09:04 Dose: 100 mls/hr Ipratropium [place] (Atrovent) 0.5 mg IH RQ8 [facility] Last Admin: 06/09/18 07:27 Dose: 0.5 mg Memantine (Namenda) 5 mg PO Q12 [facility] Last Admin: 05/21/18 10:25 Dose: 5 mg Metoprolol Tartrate (Lopressor) 50 mg PO Q12 [facility] Last Admin: 06/09/18 09:05 Dose: 50 mg Multivitamins/Minerals (Therapeutic-M Tab) 1 tab PO DAILY [facility] Last Admin: 05/21/18 10:27 Dose: 1 tab Senna/Docusate Sodium (Senokot S 50 Mg-8.6 Mg) 1 tab PO HS [facility] Last Admin: 05/20/18 21:29 Dose: 1 tab Tamsulosin HCl (Flomax) 0.4 mg PO QPM [facility] Last Admin: 05/20/18 17:19 Dose: 0.4 mg Vitamin A (Vitamin A & D Oint Ud Foilpak) 1 ea TOP BID [facility] Last Admin: 06/09/18 09:06 Dose: 1 ea - Labs Labs: 06/09/18 04:25 06/09/18 04:25 PT 15.7 Seconds (9.8-13.1) H 05/12/18 07:50 INR 1.4 05/12/18 07:50 APTT 34.4 Seconds (25.6-37.1) 05/12/18 07:50 - Respiratory Exam Respiratory Exam: Rhonchi, NORMAL BREATHING PATTERN - Cardiovascular Exam Cardiovascular Exam: REGULAR RHYTHM - GI/Abdominal Exam GI & Abdominal Exam: Soft, Normal Bowel Sounds Assessment and Plan - Assessment and Plan (Free Text) Assessment: 82 yo male with sepsis trach peg once able
[2018-06-09 13:57] LABS: INR 1.3; PROTHROMBIN TIME 14.2 Seconds (9.8-13.1)
[2018-06-09 13:59] LABS: PARTIAL THROMBOPLASTIN TIME 32.8 Seconds (25.6-37.1)
--- NOTE | 2018-06-09 14:15 | RAD ---
Date of service: 06/09/2018 HISTORY: intubated COMPARISON: 06/08/2018. FINDINGS: Endotracheal tube terminates 2 cm proximal to the brianne. The nasogastric tube terminates in the stomach. LUNGS: Since the prior examination, there is no significant interval change in multifocal airspace disease in the right lung, worse in the upper lobe. The left lung is clear. PLEURA: No pleural effusions or pneumothorax. CARDIOVASCULAR: The heart is normal in size. There are aortic atherosclerotic calcifications present. OSSEOUS STRUCTURES: Stable. VISUALIZED UPPER ABDOMEN: Normal. OTHER FINDINGS: None. IMPRESSION: Little interval change in multifocal airspace disease in the right lung, worse in the right upper lobe likely multifocal pneumonia. Follow-up is advised. Stable position of support tubes.
--- NOTE | 2018-06-09 14:40 | CP.PCM.PN ---
Subjective - Date & Time of Evaluation Date of Evaluation: 06/09/18 Time of Evaluation: 09:20 - Subjective Subjective: F/U Respiratory Failure Pt with minimal response to tactile stimuli Objective - Vital Signs/Intake and Output Vital Signs (last 24 hours): Temp Pulse Resp BP Pulse Ox 99.3 F 68 23 143/65 99 06/09/18 12:00 06/09/18 12:00 06/09/18 12:00 06/09/18 12:00 06/09/18 12:00 Intake and Output: 06/09/18 06/09/18 06:59 18:59 Intake Total 1220 610 Output Total 1000 Balance 220 610 - Medications Medications: Current Medications Acetaminophen (Tylenol 650mg/20.3ml Solution Ud) 650 mg PO Q4 PRN PRN Reason: Temperature Last Admin: 06/07/18 19:37 Dose: 650 mg Acetylcysteine (Mucomyst 10% 4ml) 2 ml IH RQ8 KEN Last Admin: 06/09/18 07:27 Dose: 2 ml Alendronate Sodium (Fosamax) 70 mg PO FR KEN Last Admin: 05/21/18 10:29 Dose: 70 mg Artificial Tears (Artificial Tears) 2 drop OU Q6 KEN Last Admin: 06/09/18 09:06 Dose: 2 drop Calcium Carbonate (Oscal) 500 mg PO BID KEN Last Admin: 05/21/18 10:26 Dose: 500 mg Cholecalciferol (Vitamin D) 1,000 intlu PO BID KEN Last Admin: 05/21/18 10:27 Dose: 1,000 intlu Donepezil HCl (Aricept) 5 mg PO HS KEN Last Admin: 05/20/18 21:28 Dose: 5 mg Enoxaparin Sodium (Lovenox) 40 mg SC DAILY KEN; Protocol Last Admin: 06/09/18 09:32 Dose: Not Given Fluconazole (Diflucan Iv 100 Mg/50 Ml Ns) 50 mls @ 50 mls/hr IVPB DAILY KEN; Protocol Last Admin: 06/09/18 09:02 Dose: 50 mls/hr Meropenem 1 gm/ Sodium (Chloride) 100 mls @ 100 mls/hr IVPB Q8 KEN; Protocol Last Admin: 06/09/18 09:04 Dose: 100 mls/hr Ipratropium [place] (Atrovent) 0.5 mg IH RQ8 KEN Last Admin: 06/09/18 07:27 Dose: 0.5 mg Memantine (Namenda) 5 mg PO Q12 [facility] Last Admin: 05/21/18 10:25 Dose: 5 mg Metoprolol Tartrate (Lopressor) 50 mg PO Q12 [facility] Last Admin: 06/09/18 09:05 Dose: 50 mg Multivitamins/Minerals (Therapeutic-M Tab) 1 tab PO DAILY [facility] Last Admin: 05/21/18 10:27 Dose: 1 tab Senna/Docusate Sodium (Senokot S 50 Mg-8.6 Mg) 1 tab PO HS [facility] Last Admin: 05/20/18 21:29 Dose: 1 tab Tamsulosin HCl (Flomax) 0.4 mg PO QPM [facility] Last Admin: 05/20/18 17:19 Dose: 0.4 mg Vitamin A (Vitamin A & D Oint Ud Foilpak) 1 ea TOP BID [facility] Last Admin: 06/09/18 09:06 Dose: 1 ea - Labs Labs: 06/09/18 04:25 06/09/18 04:25 PT 14.2 Seconds (9.8-13.1) H 06/09/18 13:40 INR 1.3 06/09/18 13:40 APTT 32.8 Seconds (25.6-37.1) 06/09/18 13:40 - Constitutional Appears: Chronically Ill - Head Exam Head Exam: NORMAL INSPECTION - Eye Exam Eye Exam: PERRL - ENT Exam Additional comments: Intubated, OGT - Neck Exam Neck Exam: Normal Inspection - Respiratory Exam Respiratory Exam: Decreased Breath Sounds (at bases), Rhonchi (scattered) - Cardiovascular Exam Cardiovascular Exam: REGULAR RHYTHM - GI/Abdominal Exam GI & Abdominal Exam: Soft, Normal Bowel Sounds - Extremities Exam Additional comments: Edema - Back Exam Additional comments: Sacral ulcer - Neurological Exam Additional comments: Lethargic, open eyes to tactile stimuli, no following commands. - Skin Skin Exam: Warm Assessment and Plan (1) Aspiration pneumonia Status: Acute (2) E. coli UTI Status: Acute (3) Fever Status: Resolved (4) Sepsis syndrome Status: Acute (5) Hypoxemia Status: Chronic (6) Dementia Status: Chronic (7) HTN (hypertension) Status: Chronic (8) DMII (diabetes mellitus, type 2) Status: Chronic - Assessment and Plan (Free Text) Plan: Continue CPAP PS, FIO2 40%, Merren, Atrovent, Lopressor and rest of Tx. For Tracheostomy tomorrow, f/u GI consult for Peg tube. Critical care time: 33 min.
--- NOTE | 2018-06-09 14:42 | CP.PCM.PN ---
Subjective - Date & Time of Evaluation Date of Evaluation: 06/09/18 Time of Evaluation: 13:00 - Subjective Subjective: ID Note- Pt. seen and examined today in ICU. remains intubated and lethargic. Objective - Vital Signs/Intake and Output Vital Signs (last 24 hours): Temp Pulse Resp BP Pulse Ox 99.3 F 68 23 143/65 99 06/09/18 12:00 06/09/18 12:00 06/09/18 12:00 06/09/18 12:00 06/09/18 12:00 Intake and Output: 06/09/18 06/09/18 06:59 18:59 Intake Total 1220 610 Output Total 1000 Balance 220 610 - Medications Medications: Current Medications Acetaminophen (Tylenol 650mg/20.3ml Solution Ud) 650 mg PO Q4 PRN PRN Reason: Temperature Last Admin: 06/07/18 19:37 Dose: 650 mg Acetylcysteine (Mucomyst 10% 4ml) 2 ml IH RQ8 K[facility] Last Admin: 06/09/18 07:27 Dose: 2 ml Alendronate Sodium (Fosamax) 70 mg PO FR [facility] Last Admin: 05/21/18 10:29 Dose: 70 mg Artificial Tears (Artificial Tears) 2 drop OU Q6 KEN Last Admin: 06/09/18 09:06 Dose: 2 drop Calcium Carbonate (Oscal) 500 mg PO BID K[facility] Last Admin: 05/21/18 10:26 Dose: 500 mg Cholecalciferol (Vitamin D) 1,000 intlu PO BID [facility] Last Admin: 05/21/18 10:27 Dose: 1,000 intlu Donepezil HCl (Aricept) 5 mg PO HS KEN Last Admin: 05/20/18 21:28 Dose: 5 mg Enoxaparin Sodium (Lovenox) 40 mg SC DAILY KEN; Protocol Last Admin: 06/09/18 09:32 Dose: Not Given Fluconazole (Diflucan Iv 100 Mg/50 Ml Ns) 50 mls @ 50 mls/hr IVPB DAILY KEN; Protocol Last Admin: 06/09/18 09:02 Dose: 50 mls/hr Meropenem 1 gm/ Sodium (Chloride) 100 mls @ 100 mls/hr IVPB Q8 KEN; Protocol Last Admin: 06/09/18 09:04 Dose: 100 mls/hr Ipratropium [place] (Atrovent) 0.5 mg IH RQ8 [facility] Last Admin: 06/09/18 07:27 Dose: 0.5 mg Memantine (Namenda) 5 mg PO Q12 [facility] Last Admin: 05/21/18 10:25 Dose: 5 mg Metoprolol Tartrate (Lopressor) 50 mg PO Q12 [facility] Last Admin: 06/09/18 09:05 Dose: 50 mg Multivitamins/Minerals (Therapeutic-M Tab) 1 tab PO DAILY [facility] Last Admin: 05/21/18 10:27 Dose: 1 tab Senna/Docusate Sodium (Senokot S 50 Mg-8.6 Mg) 1 tab PO HS [facility] Last Admin: 05/20/18 21:29 Dose: 1 tab Tamsulosin HCl (Flomax) 0.4 mg PO QPM [facility] Last Admin: 05/20/18 17:19 Dose: 0.4 mg Vitamin A (Vitamin A & D Oint Ud Foilpak) 1 ea TOP BID [facility] Last Admin: 06/09/18 09:06 Dose: 1 ea - Labs Labs: 06/09/18 04:25 06/09/18 04:25 PT 14.2 Seconds (9.8-13.1) H 06/09/18 13:40 INR 1.3 06/09/18 13:40 APTT 32.8 Seconds (25.6-37.1) 06/09/18 13:40 - Additional Findings Additional findings: - Constitutional Appears: Chronically Ill - ENT Exam Additional comments: ET tube in place - Respiratory Exam Additional comments: breath sounds heard b/l is on the vent - Cardiovascular Exam Cardiovascular Exam: Tachycardia, +S1, +S2 - GI/Abdominal Exam GI & Abdominal Exam: Soft, Normal Bowel Sounds Additional comments: ND, NT - Extremities Exam Extremities Exam: Normal Inspection - Neurological Exam Additional comments: Intubated and lethargic Laboratory Results - last 72 hr 06/07/18 06/07/18 06/07/18 04:30 04:30 04:30 WBC 14.9 H RBC 3.16 L Hgb 8.6 L Hct 26.0 L MCV 82.4 MCH 27.1 MCHC 33.0 RDW 16.4 H Plt Count 350 MPV Neut % (Auto) Lymph % (Auto) Angelina % (Auto) Eos % (Auto) Baso % (Auto) Neut # (Auto) Lymph # (Auto) Angelina # (Auto) Eos # (Auto) Baso # (Auto) PT INR APTT pCO2 40 pO2 89 HCO3 30.7 H ABG pH 7.50 H ABG Total CO2 32.4 H ABG O2 Saturation 100.7 H ABG O2 Content 14.0 L ABG Base Excess 7.4 H ABG Hemoglobin 10.2 L ABG Carboxyhemoglobin 2.1 H POC ABG HHb (Measured) -0.7 L ABG Methemoglobin 1.7 ABG O2 Capacity 13.9 L Forrest Test Yes A-a O2 Difference 218.0 Hgb O2 Saturation 96.9 Vent Mode A/c Mechanical Rate 18 FiO2 50.0 Tidal Volume 400 PEEP 5 Pressure Support Sodium 138 Potassium 3.9 Chloride 101 Carbon Dioxide 31 H Anion Gap 10 BUN 22 H Creatinine 0.7 L Est GFR ( Amer) > 60 Est GFR (Non-Af Amer) > 60 POC Glucose (mg/dL) Random Glucose 168 H Calcium 8.4 06/07/18 06/07/18 06/07/18 04:51 11:01 16:25 WBC RBC Hgb Hct MCV MCH MCHC RDW Plt Count MPV Neut % (Auto) Lymph % (Auto) Angelina % (Auto) Eos % (Auto) Baso % (Auto) Neut # (Auto) Lymph # (Auto) Angelina # (Auto) Eos # (Auto) Baso # (Auto) PT INR APTT pCO2 pO2 HCO3 ABG pH ABG Total CO2 ABG O2 Saturation ABG O2 Content ABG Base Excess ABG Hemoglobin ABG Carboxyhemoglobin POC ABG HHb (Measured) ABG Methemoglobin ABG O2 Capacity Forrest Test A-a O2 Difference Hgb O2 Saturation Vent Mode Mechanical Rate FiO2 Tidal Volume PEEP Pressure Support Sodium Potassium Chloride Carbon Dioxide Anion Gap BUN Creatinine Est GFR ( Amer) Est GFR (Non-Af Amer) POC Glucose (mg/dL) 176 H 161 H 153 H Random Glucose Calcium 06/07/18 06/08/18 06/08/18 20:47 04:01 04:45 WBC 9.8 RBC 2.90 L Hgb 7.8 L Hct 24.0 L MCV 82.7 MCH 26.8 L MCHC 32.4 L RDW 16.8 H Plt Count 306 MPV 9.4 Neut % (Auto) 78.7 H Lymph % (Auto) 8.8 L Angelina % (Auto) 10.3 H Eos % (Auto) 1.9 Baso % (Auto) 0.3 Neut # (Auto) 7.7 H Lymph # (Auto) 0.9 L Angelina # (Auto) 1.0 H Eos # (Auto) 0.2 Baso # (Auto) 0.0 PT INR APTT pCO2 37 pO2 132 H HCO3 30.9 H ABG pH 7.53 H ABG Total CO2 32.0 H ABG O2 Saturation 99.2 H ABG O2 Content 11.0 L ABG Base Excess 7.6 H ABG Hemoglobin 7.8 L ABG Carboxyhemoglobin 0.5 POC ABG HHb (Measured) 0.8 ABG Methemoglobin 1.4 ABG O2 Capacity 11.1 L Forrest Test Yes A-a O2 Difference 107.0 Hgb O2 Saturation 97.4 Vent Mode Cpap Mechanical Rate FiO2 40.0 Tidal Volume PEEP 5 Pressure Support 15 Sodium Potassium Chloride Carbon Dioxide Anion Gap BUN Creatinine Est GFR ( Amer) Est GFR (Non-Af Amer) POC Glucose (mg/dL) 170 H Random Glucose Calcium 06/08/18 06/08/18 06/08/18 04:45 05:05 11:10 WBC RBC Hgb Hct MCV MCH MCHC RDW Plt Count MPV Neut % (Auto) Lymph % (Auto) Angelina % (Auto) Eos % (Auto) Baso % (Auto) Neut # (Auto) Lymph # (Auto) Angelina # (Auto) Eos # (Auto) Baso # (Auto) PT INR APTT pCO2 pO2 HCO3 ABG pH ABG Total CO2 ABG O2 Saturation ABG O2 Content ABG Base Excess ABG Hemoglobin ABG Carboxyhemoglobin POC ABG HHb (Measured) ABG Methemoglobin ABG O2 Capacity Forrest Test A-a O2 Difference Hgb O2 Saturation Vent Mode Mechanical Rate FiO2 Tidal Volume PEEP Pressure Support Sodium 138 Potassium 4.0 Chloride 102 Carbon Dioxide 33 H Anion Gap 7 L BUN 26 H Creatinine 0.7 L Est GFR ( Amer) > 60 Est GFR (Non-Af Amer) > 60 POC Glucose (mg/dL) 145 H 149 H Random Glucose 140 H Calcium 8.6 06/08/18 06/08/18 06/09/18 16:27 22:40 04:00 WBC RBC Hgb Hct MCV MCH MCHC RDW Plt Count MPV Neut % (Auto) Lymph % (Auto) Angelina % (Auto) Eos % (Auto) Baso % (Auto) Neut # (Auto) Lymph # (Auto) Angelina # (Auto) Eos # (Auto) Baso # (Auto) PT INR APTT pCO2 38 pO2 91 HCO3 32.1 H ABG pH 7.54 H ABG Total CO2 33.7 H ABG O2 Saturation 99.6 H ABG O2 Content 11.3 L ABG Base Excess 9.2 H ABG Hemoglobin 8.2 L ABG Carboxyhemoglobin 1.2 POC ABG HHb (Measured) 0.4 ABG Methemoglobin 1.8 ABG O2 Capacity 11.3 L Forrest Test Yes A-a O2 Difference 147.0 Hgb O2 Saturation 96.6 Vent Mode Cpap Mechanical Rate FiO2 40.0 Tidal Volume PEEP 5 Pressure Support 15 Sodium Potassium Chloride Carbon Dioxide Anion Gap BUN Creatinine Est GFR ( Amer) Est GFR (Non-Af Amer) POC Glucose (mg/dL) 152 H 130 H Random Glucose Calcium 06/09/18 06/09/18 06/09/18 04:25 04:25 13:40 WBC 9.3 RBC 2.89 L Hgb 7.9 L Hct 23.8 L MCV 82.4 MCH 27.2 MCHC 33.1 RDW 17.2 H Plt Count 320 MPV Neut % (Auto) Lymph % (Auto) Angelina % (Auto) Eos % (Auto) Baso % (Auto) Neut # (Auto) Lymph # (Auto) Angelina # (Auto) Eos # (Auto) Baso # (Auto) PT 14.2 H INR 1.3 APTT 32.8 pCO2 pO2 HCO3 ABG pH ABG Total CO2 ABG O2 Saturation ABG O2 Content ABG Base Excess ABG Hemoglobin ABG Carboxyhemoglobin POC ABG HHb (Measured) ABG Methemoglobin ABG O2 Capacity Forrest Test A-a O2 Difference Hgb O2 Saturation Vent Mode Mechanical Rate FiO2 Tidal Volume PEEP Pressure Support Sodium 139 Potassium 4.0 Chloride 103 Carbon Dioxide 31 H Anion Gap 9 L BUN 27 H Creatinine 0.7 L Est GFR ( Amer) > 60 Est GFR (Non-Af Amer) > 60 POC Glucose (mg/dL) Random Glucose 143 H Calcium 8.6 Microbiology 05/31/18 12:34 Blood-Venous Blood Culture - Final NO GROWTH AFTER 5 DAYS 05/31/18 12:34 Blood-Venous Gram Stain - Final TEST NOT PERFORMED 05/31/18 12:44 Blood-Venous Blood Culture - Final NO GROWTH AFTER 5 DAYS 05/31/18 12:44 Blood-Venous Gram Stain - Final TEST NOT PERFORMED 05/28/18 05:00 Bronchial Washings Bronchial Culture - Final Renee Albicans 05/27/18 21:00 Blood-Venous Blood Culture - Final NO GROWTH AFTER 5 DAYS 05/27/18 21:00 Blood-Venous Gram Stain - Final TEST NOT PERFORMED 05/27/18 21:05 Blood-Venous Blood Culture - Final NO GROWTH AFTER 5 DAYS 05/27/18 21:05 Blood-Venous Gram Stain - Final TEST NOT PERFORMED 05/26/18 14:13 Blood-Venous Blood Culture - Final NO GROWTH AFTER 5 DAYS 05/26/18 14:13 Blood-Venous Gram Stain - Final TEST NOT PERFORMED 05/27/18 21:00 Trachasp Gram Stain - Final 05/27/18 21:00 Trachasp Sputum Culture - Final Yeast Species 05/24/18 14:15 Blood-Venous Blood Culture - Final NO GROWTH AFTER 5 DAYS 05/24/18 14:15 Blood-Venous Gram Stain - Final TEST NOT PERFORMED 05/24/18 14:00 Blood-Venous Blood Culture - Final NO GROWTH AFTER 5 DAYS 05/24/18 14:00 Blood-Venous Gram Stain - Final TEST NOT PERFORMED 05/27/18 21:00 Urine,Catheterized Urine Culture - Final No Growth (<1,000 CFU/ML) 05/24/18 15:00 Sputum Gram Stain - Final 05/24/18 15:00 Sputum Sputum Culture - Final Yeast Species 05/24/18 09:35 Urine,Catheterized Urine Culture - Final No Growth (<1,000 CFU/ML) 05/20/18 15:31 Blood-Venous Blood Culture - Final NO GROWTH AFTER 5 DAYS 05/20/18 15:31 Blood-Venous Gram Stain - Final TEST NOT PERFORMED 05/20/18 15:42 Blood-Venous Blood Culture - Final NO GROWTH AFTER 5 DAYS 05/20/18 15:42 Blood-Venous Gram Stain - Final TEST NOT PERFORMED 05/24/18 09:35 Naris MRSA Culture (Admit) - Final MRSA NOT DETECTED 05/21/18 16:57 Sputum Induced Gram Stain - Final 05/21/18 16:57 Sputum Induced Sputum Culture - Final Yeast Species 05/12/18 07:50 Blood Blood Culture - Final NO GROWTH AFTER 5 DAYS 05/12/18 07:50 Blood Gram Stain - Final TEST NOT PERFORMED 05/12/18 Unknown Blood Blood Culture - Final NO GROWTH AFTER 5 DAYS 05/12/18 Unknown Blood Gram Stain - Final TEST NOT PERFORMED 05/12/18 08:40 Urine,Catheterized Urine Culture - Final Escherichia Coli Assessment and Plan (1) Sepsis syndrome Status: Acute (2) Fever Status: Resolved (3) Hypoxemia Status: Chronic (4) Aspiration pneumonia Status: Acute - Assessment and Plan (Free Text) Assessment: A/P- 82 year old [place] resident male with dementia, admitted with fever initially and had UTI and ? asp pneumonia and was treated with IV antibiotiocs and was fever free and normal wbc and doing ok but few days ago had aspiration pneumonia and hypoxemic and rapid a.fib and is s/p intubation and in ICU. remains intubated and lethargic. afebrile minimal leukocytois resolved today. cxr- right side infiltrates but improved compared to before. admission UA- Pos LE, neg Nitrates admission urine cx- E.Coli pansensitive- treated for this already blood cx- neg x 5 sputum cx- yeast BAL cx- C.Albicans PLan- advise to continue with IV meropenem empiric coverage day #14. also advise to continue with IV fluconazole for yeast in sputum.day #13 advise 2 more days of IV fluconzole. completed 10 days of IV empiric vanco. all labs and imaging and chart notes reviewed. critical care time spent 30 minutes.
--- NOTE | 2018-06-09 15:24 | PN ---
DATE: 06/09/2018 LOCATION: The patient in ICU, bed 434. TIME SPENT: 35 minutes. The patient is seen and evaluated at the bedside. Past medical, surgical, family, social history reviewed. SUBJECTIVE: An 82-year-old male, [facility] resident, admitted for evaluation after being found to be febrile. Past medical history significant for advanced dementia, bedbound, hypertension and diet-controlled diabetes mellitus type 2. On admission, urine was positive for UTI with E. coli. He was seen by ID consult, started on meropenem. While in telemetry floor, the patient developed rapid AFib, worsening of the mental status and hypertension. RR Team called. Treated with digoxin, Cardizem and IV fluid, admitted to ICU. Remains lethargic, intubated, on CPAP, tolerating well. No distress noted. Saturation over 94%. No significant improvement in mental status, NG feeding in progress since clinically unable to protect his airway and high risk for aspiration, scheduled for tracheostomy tomorrow. PHYSICAL EXAMINATION: VITAL SIGNS: Temperature 99.3, heart rate 68, blood pressure 143/65, mean arterial pressure 91, respiratory rate 23, saturation 99%. Intake 2330, output 2000, positive balance 330. Urine output 2000 mL. Head, Eyes, Ears, Nose and Throat: Pupils are reactive. Conjunctivae pink. Sclerae white. Mouth open. Oral mucosa dry. Endotracheal tube in place. No secretion noted. NECK: Supple. Trachea central. CHEST: Bilateral breath sounds, clear to auscultation anteriorly and laterally. HEART: Rhythm regular. S1, S2 normal. ABDOMEN: Bowel sounds present. Soft. EXTREMITIES: Trace edema. Heel protection in place to prevent footdrop. CURRENT MEDICATIONS: Tylenol 650 every 4 hours p.r.n., acetylcysteine 10% 2 mL via nebulizer every 8 hours, Fosamax 70 mg once a week, artificial tears, Os-Jigar 500 mg twice daily, vitamin D 1,000 units p.o. b.i.d., Aricept 5 mg p.o. h.s., Lovenox 40 mg subcu daily, fluconazole 100 mg IV daily, ipratropium bromide 0.5 mg IV every 8 hours, Namenda 5 mg p.o. every 12 hours, meropenem 1 g IV every 8 hours, Lopressor 50 mg every 12 hours, multivitamin tablet daily, Senokot 1 tablet p.o. h.s., vitamin A and D one b.i.d. LABORATORY DATA: WBC 9.3, hemoglobin 7.9, hematocrit of 23.8, platelet count of 320. PT 14.2, INR 1.3, PTT 32.8. ABG: pH 7.54, pCO2 of 34, pO2 of 91, saturation 99.6 on CPAP, pressure support of 15, PEEP of 5, FIO2 of 40%. SMA-7: Sodium 139, potassium 4, chloride 103, CO2 of 31, blood urea nitrogen 27, creatinine 0.7, lactic acid pending, random glucose 143, calcium 8.6. Urine analysis on 05/24/2018 negative. Gentamicin trough level less than 0.6. Vancomycin trough level 13.9. Serology influenza A and B negative. Urine Legionella pneumophila negative. Mycoplasma pneumoniae IgM antibody negative. IMPRESSION: 1. Neurologic: Underlying dementia, status post aspiration pneumonia with hypoxic respiratory failure, hypoxic septic encephalopathy, resolved. Still remains lethargic. Due to underlying dementia, hardly responds to verbal commands. 2. Respiratory, status post hypoxic respiratory failure, bilateral aspiration pneumonia. Still with a high risk for recurrent aspiration. Noted to have air-fluid level in the distal esophagus. 3. Cardiac: History of hypertension. Antihypertensive medications on hold, blood pressure is in the accepted range. 4. Hematology. Leukocytosis resolved. Anemia of chronic disease. Platelet count within normal limits. 5. Gastrointestinal: Dilated lumen in the esophagus with air-fluid level, seen by GI. Given poor prognosis, no further intervention recommended. 6. Endocrinology. Maintaining a blood sugar between 90 to 110. 7. Keep head of bed 30 degrees up. Scheduled for tracheostomy tomorrow. N.p.o. since midnight. Continue feeding as tolerated. Awaiting for PEG insertion. 8. Prognosis remains guarded for meaningful recovery, for the daily activities given his underlying dementia. Jose Stevens MD
[2018-06-10] MEDS: Meropenem 1 GM in Sodium Chloride 0.9% 100 ML IVPB SCH ×3 (00:44→17:42)
[2018-06-10] MEDS: Artificial Tears Opht Soln OU SCH ×4 (03:16→22:04)
[2018-06-10 04:53] LABS: ABG ALLEN TEST YES; ARTERIAL BLOOD GAS HCO3 32.7 mmol/L (21-28); ARTERIAL BLOOD GAS HEMOGLOBIN 8.5 g/dL (11.7-17.4); ARTERIAL BLOOD GAS O2 CAPACITY 11.7 mL/dL (16-24); ARTERIAL BLOOD GAS O2 CONTENT 11.6 ML/dL (15-23); ARTERIAL BLOOD GAS O2 SAT 99.4 % (95-98); ARTERIAL BLOOD GAS PCO2 40 mm/Hg (35-45); ARTERIAL BLOOD GAS PH 7.53 (7.35-7.45); ARTERIAL BLOOD GAS PO2 74 mm/Hg (80-100); ARTERIAL BLOOD GAS TCO2 34.6 mmol/L (22-28)
[2018-06-10 05:32] LABS: BASO % 0.2 % (0.0-2.0); EOS # 0.1 K/uL (0.0-0.7); EOS % 1.5 % (0.0-4.0); HEMOGLOBIN 8.7 g/dL (12.0-18.0); LYMPH # 0.8 K/uL (1.0-4.3); LYMPH % 9.7 % (20.0-40.0); MEAN CELL VOLUME 83.5 fl (80.0-94.0); MEAN CORPUSCULAR HEMOGLOBIN 27.2 pg (27.0-31.0); MEAN CORPUSCULAR HGB CONC 32.5 g/dL (33.0-37.0); MONO # 0.8 K/uL (0.0-0.8); MONO % 9.9 % (0.0-10.0); NEUT # 6.6 K/uL (1.8-7.0); NEUT % 78.7 % (50.0-75.0); PLATELET COUNT 327 K/uL (130-400); RBC 3.19 Mil/uL (4.40-5.90); RED CELL DISTRIBUTION WIDTH 17.4 % (11.5-14.5); WHITE BLOOD COUNT 8.4 K/uL (4.8-10.8)
[2018-06-10 05:38] LABS: INR 1.3; PROTHROMBIN TIME 14.4 Seconds (9.8-13.1)
[2018-06-10 05:40] LABS: PARTIAL THROMBOPLASTIN TIME 32.4 Seconds (25.6-37.1)
[2018-06-10 06:03] LABS: ALB/GLOB RATIO 0.7 (1.0-2.1); ALT/SGPT 28 U/L (21-72); AST/SGOT 34 U/L (17-59); BLOOD UREA NITROGEN 27 mg/dl (9-20); CALCIUM 8.5 mg/dL (8.4-10.2); GFR NON-AFRICAN AMERICAN > 60
[2018-06-10] MEDS ORDERED: ePHEDrine 50 mg/ml Inj ONE (07:19)
[2018-06-10] MEDS ORDERED: Etomidate 20 mg/10ml Inj IV ONE (07:19)
[2018-06-10] MEDS ORDERED: Midazolam 2 MG/2 ML VIAL ONE (07:19)
[2018-06-10] MEDS ORDERED: Rocuronium 10 mg/ml (5 ml) ONE ×2 (07:19→09:06)
[2018-06-10] MEDS ORDERED: Sodium Chloride 0.9% 1,000 ML IV ONE (08:00)
[2018-06-10] MEDS: Ipratropium 0.02% Inhal Soln (0.5 mg/2.5 ml) UD IH SCH ×3 (08:09→23:47)
[2018-06-10] MEDS: Acetylcysteine 10% 4 ML IH SCH ×3 (08:09→23:47)
[2018-06-10] MEDS: Enoxaparin 40 mg Syringe SC SCH (09:00)
[2018-06-10] MEDS ORDERED: Lidocaine 1% Inj (20ml) IJ ONE (09:00)
--- NOTE | 2018-06-10 09:42 | PCM.SURG1 ---
Surgeon's Initial Post Op Note - Surgeon's Notes Surgeon: Dr. Keita Horticulture Teacher: Dr. Gresham PGY3, Dr. Whaley PGY2, Dr. Carr PGY1 Type of Anesthesia: General Endo Anesthesia Administered By: Dr. Rendon Pre-Operative Diagnosis: Failure to intubate, altered mental status Operative Findings: See operative dictation Post-Operative Diagnosis: Same Operation Performed: Percutaneous Endocscopic Gastrostomy Tube placement at 1.5cm from skin, Open tracheostomy Specimen/Specimens Removed: None Estimated Blood Loss: EBL {In ML}: 5 Blood Products Given: N/A Drains Used: No Drains Post-Op Condition: Good Date of Surgery/Procedure: 06/10/18 Time of Surgery/Procedure: 09:44
[2018-06-10] MEDS: Fluconazole IV 100mg/50 ml NS 50 ML IVPB SCH (10:54)
[2018-06-10] MEDS: Vitamins A & D Oint UD Foilpak TOP SCH ×2 (10:55→17:42)
--- NOTE | 2018-06-10 11:17 | RAD ---
Date of service: 06/10/2018 HISTORY: Intubated. COMPARISON: Multiple serial examinations preceding the most recent study: June 09, 2018. FINDINGS: LUNGS: Persistent right upper lobe infiltrate. Less pronounced pulmonary parenchymal findings right lower lobe. PLEURA: No significant pleural effusion identified, no pneumothorax apparent. CARDIOVASCULAR: No atherosclerotic calcification present Normal. OSSEOUS STRUCTURES: No significant abnormalities. VISUALIZED UPPER ABDOMEN: Normal. OTHER FINDINGS: Stable, satisfactory position ventilatory, nasogastric apparatus. IMPRESSION: Stable infiltrates. Stable position of endotracheal tube and nasogastric.
[2018-06-10 12:58] LABS: EOSINOPHIL 2 % (0-7); LYMPHOCYTE 10 % (20-50); MONOCYTE 8 % (0-10); NEUTROPHIL 80 % (42-75); TOTAL CELLS COUNTED 100
[2018-06-10 12:59] LABS: ANISOCYTOSIS SLIGHT; PLATELET ESTIMATE NORMAL (NORMAL)
[2018-06-10 13:00] LABS: HYPOCHROMIC MODERATE; OVALOCYTES SLIGHT
[2018-06-10] MEDS ORDERED: Diatriz Meglumine/Diatriz Sod 30 ML BOTTLE PO ONE (14:03)
--- NOTE | 2018-06-10 15:42 | CP.PCM.PN ---
Subjective - Date & Time of Evaluation Date of Evaluation: 06/10/18 Time of Evaluation: 10:40 - Subjective Subjective: F/U Respiratory Failure. S/P PegTube incertion today. minimal response to tactile stimuli, s/p Tracheostomy and Peg tube, vent. PRVC AC Objective - Vital Signs/Intake and Output Vital Signs (last 24 hours): Temp Pulse Resp BP Pulse Ox 98.2 F 90 13 147/72 95 06/10/18 12:00 06/10/18 14:00 06/10/18 14:00 06/10/18 14:00 06/10/18 14:00 Intake and Output: 06/10/18 06/10/18 06:59 18:59 Intake Total 600 Output Total 900 Balance -900 600 - Medications Medications: Current Medications Acetaminophen (Tylenol 650mg/20.3ml Solution Ud) 650 mg PO Q4 PRN PRN Reason: Temperature Last Admin: 06/07/18 19:37 Dose: 650 mg Acetylcysteine (Mucomyst 10% 4ml) 2 ml IH RQ8 KEN Last Admin: 06/10/18 15:17 Dose: 2 ml Alendronate Sodium (Fosamax) 70 mg PO FR KEN Last Admin: 05/21/18 10:29 Dose: 70 mg Artificial Tears (Artificial Tears) 2 drop OU Q6 KEN Last Admin: 06/10/18 10:54 Dose: 2 drop Calcium Carbonate (Oscal) 500 mg PO BID KEN Last Admin: 05/21/18 10:26 Dose: 500 mg Cholecalciferol (Vitamin D) 1,000 intlu PO BID KEN Last Admin: 05/21/18 10:27 Dose: 1,000 intlu Donepezil HCl (Aricept) 5 mg PO HS KEN Last Admin: 05/20/18 21:28 Dose: 5 mg Enoxaparin Sodium (Lovenox) 40 mg SC DAILY KEN; Protocol Last Admin: 06/10/18 09:00 Dose: Not Given Fluconazole (Diflucan Iv 100 Mg/50 Ml Ns) 50 mls @ 50 mls/hr IVPB DAILY KEN; Protocol Last Admin: 06/10/18 10:54 Dose: 50 mls/hr Meropenem 1 gm/ Sodium (Chloride) 100 mls @ 100 mls/hr IVPB Q8 KEN; Protocol Last Admin: 06/10/18 08:15 Dose: 100 mls/hr Ipratropium [place] (Atrovent) 0.5 mg IH RQ8 COUNT INCLUDES THE [facility] Last Admin: 06/10/18 15:17 Dose: 0.5 mg Memantine (Namenda) 5 mg PO Q12 COUNT INCLUDES THE [facility] Last Admin: 05/21/18 10:25 Dose: 5 mg Metoprolol Tartrate (Lopressor) 50 mg PO Q12 COUNT INCLUDES THE [facility] Last Admin: 06/10/18 10:55 Dose: 50 mg Multivitamins/Minerals (Therapeutic-M Tab) 1 tab PO DAILY COUNT INCLUDES THE [facility] Last Admin: 05/21/18 10:27 Dose: 1 tab Senna/Docusate Sodium (Senokot S 50 Mg-8.6 Mg) 1 tab PO HS COUNT INCLUDES THE [facility] Last Admin: 05/20/18 21:29 Dose: 1 tab Tamsulosin HCl (Flomax) 0.4 mg PO QPM COUNT INCLUDES THE [facility] Last Admin: 05/20/18 17:19 Dose: 0.4 mg Vitamin A (Vitamin A & D Oint Ud Foilpak) 1 ea TOP BID COUNT INCLUDES THE [facility] Last Admin: 06/10/18 10:55 Dose: 1 ea - Labs Labs: 06/10/18 04:50 06/10/18 04:50 PT 14.4 Seconds (9.8-13.1) H 06/10/18 04:50 INR 1.3 06/10/18 04:50 APTT 32.4 Seconds (25.6-37.1) 06/10/18 04:50 - Constitutional Appears: Chronically Ill - Head Exam Head Exam: NORMAL INSPECTION - Eye Exam Eye Exam: PERRL - ENT Exam ENT Exam: Normal Exam - Neck Exam Additional comments: Tracheostomy - Respiratory Exam Respiratory Exam: Decreased Breath Sounds (at bases) - Cardiovascular Exam Cardiovascular Exam: REGULAR RHYTHM - GI/Abdominal Exam GI & Abdominal Exam: Soft, Normal Bowel Sounds - Neurological Exam Additional comments: minimal response to tactil stimuli - Skin Skin Exam: Warm Assessment and Plan (1) Aspiration pneumonia Status: Acute (2) E. coli UTI Status: Acute (3) Fever Status: Resolved (4) Sepsis syndrome Status: Acute (5) Hypoxemia Status: Chronic (6) Dementia Status: Chronic (7) HTN (hypertension) Status: Chronic (8) DMII (diabetes mellitus, type 2) Status: Chronic - Assessment and Plan (Free Text) Plan: s/p Tracheostomy, vent. PRVC AC , FIO2 40% , s/p PEG tube, continue Diflucan, Atrovent, Mucomyst and rest of Tx Critical care time: 31 min.
[2018-06-11] MEDS: Meropenem 1 GM in Sodium Chloride 0.9% 100 ML IVPB SCH ×2 (01:34→16:29)
[2018-06-11] MEDS: Artificial Tears Opht Soln OU SCH ×4 (03:46→22:00)
[2018-06-11 05:03] LABS: ABG ALLEN TEST YES; ARTERIAL BLOOD GAS HCO3 32.2 mmol/L (21-28); ARTERIAL BLOOD GAS HEMOGLOBIN 8.4 g/dL (11.7-17.4); ARTERIAL BLOOD GAS O2 CAPACITY 11.5 mL/dL (16-24); ARTERIAL BLOOD GAS O2 CONTENT 11.2 ML/dL (15-23); ARTERIAL BLOOD GAS O2 SAT 97.7 % (95-98); ARTERIAL BLOOD GAS PCO2 35 mm/Hg (35-45); ARTERIAL BLOOD GAS PH 7.57 (7.35-7.45); ARTERIAL BLOOD GAS PO2 64 mm/Hg (80-100); ARTERIAL BLOOD GAS TCO2 33.2 mmol/L (22-28)
[2018-06-11 05:37] LABS: BASO % 0.2 % (0.0-2.0); EOS % 0.2 % (0.0-4.0); HEMOGLOBIN 8.6 g/dL (12.0-18.0); LYMPH # 0.9 K/uL (1.0-4.3); LYMPH % 8.6 % (20.0-40.0); MEAN CELL VOLUME 83.2 fl (80.0-94.0); MEAN CORPUSCULAR HGB CONC 32.5 g/dL (33.0-37.0); MONO % 9.6 % (0.0-10.0); NEUT # 8.3 K/uL (1.8-7.0); NEUT % 81.4 % (50.0-75.0); RBC 3.18 Mil/uL (4.40-5.90); RED CELL DISTRIBUTION WIDTH 17.6 % (11.5-14.5); WHITE BLOOD COUNT 10.2 K/uL (4.8-10.8)
[2018-06-11 05:45] LABS: BLOOD UREA NITROGEN 29 mg/dl (9-20); CALCIUM 8.3 mg/dL (8.4-10.2); GFR NON-AFRICAN AMERICAN > 60
[2018-06-11] MEDS: Acetylcysteine 10% 4 ML IH SCH ×3 (07:32→23:37)
[2018-06-11] MEDS: Ipratropium 0.02% Inhal Soln (0.5 mg/2.5 ml) UD IH SCH ×3 (07:33→23:37)
--- NOTE | 2018-06-11 08:06 | CP.PCM.PN ---
Subjective - Date & Time of Evaluation Date of Evaluation: 06/11/18 Time of Evaluation: 09:46 - Subjective Subjective: General Surgery Note for Dr. Keita Patient seen and examined at bedside. No acute event overnight. Patient is s/p tracheostomy and PEG Tube placement POD#1. He is now PSV 40%/5/5. Patient is hemodynamically normal and has been afebrile. ROS unobtainable. Objective - Vital Signs/Intake and Output Vital Signs (last 24 hours): Temp Pulse Resp BP Pulse Ox 100.2 F H 91 H 25 H 140/77 93 L 06/11/18 04:00 06/11/18 06:00 06/11/18 06:00 06/11/18 06:00 06/11/18 06:00 Intake and Output: 06/11/18 06/11/18 06:59 18:59 Intake Total 120 10 Output Total 500 Balance -380 10 - Medications Medications: Current Medications Acetaminophen (Tylenol 650 Mg Supp) 650 mg WI Q4 PRN PRN Reason: Fever >100.4 F Acetylcysteine (Mucomyst 10% 4ml) 2 ml IH RQ8 KEN Last Admin: 06/11/18 07:32 Dose: 2 ml Alendronate Sodium (Fosamax) 70 mg PO FR KEN Last Admin: 05/21/18 10:29 Dose: 70 mg Artificial Tears (Artificial Tears) 2 drop OU Q6 KEN Last Admin: 06/11/18 03:46 Dose: 2 drop Calcium Carbonate (Oscal) 500 mg PO BID KEN Last Admin: 05/21/18 10:26 Dose: 500 mg Cholecalciferol (Vitamin D) 1,000 intlu PO BID KNE Last Admin: 05/21/18 10:27 Dose: 1,000 intlu Donepezil HCl (Aricept) 5 mg PO HS KEN Last Admin: 05/20/18 21:28 Dose: 5 mg Enoxaparin Sodium (Lovenox) 40 mg SC DAILY KEN; Protocol Last Admin: 06/10/18 09:00 Dose: Not Given Fluconazole (Diflucan Iv 100 Mg/50 Ml Ns) 50 mls @ 50 mls/hr IVPB DAILY KEN; Protocol Last Admin: 06/10/18 10:54 Dose: 50 mls/hr Ipratropium [place] (Atrovent) 0.5 mg IH RQ8 KEN Last Admin: 06/11/18 07:33 Dose: 0.5 mg Memantine (Namenda) 5 mg PO Q12 [facility] Last Admin: 05/21/18 10:25 Dose: 5 mg Metoprolol Tartrate (Lopressor) 50 mg PO Q12 [facility] Last Admin: 06/10/18 22:05 Dose: Not Given Multivitamins/Minerals (Therapeutic-M Tab) 1 tab PO DAILY [facility] Last Admin: 05/21/18 10:27 Dose: 1 tab Senna/Docusate Sodium (Senokot S 50 Mg-8.6 Mg) 1 tab PO HS [facility] Last Admin: 05/20/18 21:29 Dose: 1 tab Tamsulosin HCl (Flomax) 0.4 mg PO QPM [facility] Last Admin: 05/20/18 17:19 Dose: 0.4 mg Vitamin A (Vitamin A & D Oint Ud Foilpak) 1 ea TOP BID [facility] Last Admin: 06/10/18 17:42 Dose: 1 ea - Labs Labs: 06/11/18 05:00 06/11/18 05:00 PT 14.4 Seconds (9.8-13.1) H 06/10/18 04:50 INR 1.3 06/10/18 04:50 APTT 32.4 Seconds (25.6-37.1) 06/10/18 04:50 - Additional Findings Additional findings: - Constitutional Appears: Cachectic, Chronically Ill - Head Exam Head Exam: ATRAUMATIC, NORMOCEPHALIC - Eye Exam Eye Exam: EOMI, Normal appearance Pupil Exam: PERRL - ENT Exam ENT Exam: Mucous Membranes Dry Additional comments: s/p tracheostomy - Respiratory Exam Additional comments: intubated and on PSV 40%/5/5 - Cardiovascular Exam Cardiovascular Exam: REGULAR RHYTHM - GI/Abdominal Exam GI & Abdominal Exam: Soft, Normal Bowel Sounds. absent: Tenderness Additional comments: s/p PEG tube - 20 fr 1.5 cm from skin - Extremities Exam Additional comments: bilateral heel boots - Neurological Exam Neurological Exam: Altered - Psychiatric Exam Psychiatric exam: Flat Affect - Skin Skin Exam: Dry, Warm Assessment and Plan - Assessment and Plan (Free Text) Assessment: 82 M with inability to maintain airway, prolonged intubation and malnutrition s/p tracheostomy and PEG Tube placement POD#1 Plan: Wean from vent May resume tube feeds continue IV Abx continue pain management Positioning and offloading heel boots Medical Management as per ICU Discussed with Dr. Neela Whaley PGY2
[2018-06-11] MEDS: Fluconazole IV 100mg/50 ml NS 50 ML IVPB SCH (08:17)
[2018-06-11] MEDS: Vitamins A & D Oint UD Foilpak TOP SCH ×2 (08:17→16:38)
--- NOTE | 2018-06-11 08:43 | RAD ---
Date of service: 06/11/2018 HISTORY: trach COMPARISON: Portable chest 06/10/2018 5:29 a.m.. FINDINGS: Tracheostomy tube unchanged in position. LUNGS: Persistent right apical and limited perihilar infiltrate, not significantly changed in the interval with limited patchy density right base remaining. Left-sided infiltrate. PLEURA: No significant pleural effusion identified, no pneumothorax apparent. CARDIOVASCULAR: Calcific atherosclerotic changes are seen related to the thoracic aorta. Normal cardiac size. No pulmonary vascular congestion. OSSEOUS STRUCTURES: No significant abnormalities. VISUALIZED UPPER ABDOMEN: Normal. OTHER FINDINGS: None. IMPRESSION: Stable infiltrate primarily right upper lobe but also right perihilar region and minimally at the right base. No interval improvement. No left-sided infiltrate. No pleural effusion or pneumothorax bilaterally.
[2018-06-11] MEDS: Enoxaparin 40 mg Syringe SC SCH (09:17)
--- NOTE | 2018-06-11 11:05 | CP.PCM.PN ---
Subjective - Date & Time of Evaluation Date of Evaluation: 06/11/18 Time of Evaluation: 11:05 - Subjective Subjective: ID note- Pt. seen and examined in ICu today. Pt. is s/p trach nad peg. remains on the vent and not responsive. Objective - Vital Signs/Intake and Output Vital Signs (last 24 hours): Temp Pulse Resp BP Pulse Ox 100 F H 78 25 H 155/81 H 100 06/11/18 09:53 06/11/18 09:53 06/11/18 09:53 06/11/18 09:53 06/11/18 09:53 Intake and Output: 06/11/18 06/11/18 06:59 18:59 Intake Total 120 310 Output Total 500 Balance -380 310 - Medications Medications: Current Medications Acetaminophen (Tylenol 650 Mg Supp) 650 mg UT Q4 PRN PRN Reason: Fever >100.4 F Acetylcysteine (Mucomyst 10% 4ml) 2 ml IH RQ8 KEN Last Admin: 06/11/18 07:32 Dose: 2 ml Alendronate Sodium (Fosamax) 70 mg PO FR [facility] Last Admin: 05/21/18 10:29 Dose: 70 mg Artificial Tears (Artificial Tears) 2 drop OU Q6 KEN Last Admin: 06/11/18 09:14 Dose: 2 drop Calcium Carbonate (Oscal) 500 mg PO BID [facility] Last Admin: 05/21/18 10:26 Dose: 500 mg Cholecalciferol (Vitamin D) 1,000 intlu PO BID [facility] Last Admin: 05/21/18 10:27 Dose: 1,000 intlu Donepezil HCl (Aricept) 5 mg PO HS [facility] Last Admin: 05/20/18 21:28 Dose: 5 mg Enoxaparin Sodium (Lovenox) 40 mg SC DAILY [facility]; Protocol Last Admin: 06/11/18 09:17 Dose: 40 mg Fluconazole (Diflucan Iv 100 Mg/50 Ml Ns) 50 mls @ 50 mls/hr IVPB DAILY KEN; Protocol Last Admin: 06/11/18 08:17 Dose: 50 mls/hr Ipratropium Elmer (Atrovent) 0.5 mg IH RQ8 KEN Last Admin: 06/11/18 07:33 Dose: 0.5 mg Memantine (Namenda) 5 mg PO Q12 KEN Last Admin: 05/21/18 10:25 Dose: 5 mg Metoprolol Tartrate (Lopressor) 50 mg PO Q12 [facility] Last Admin: 06/11/18 09:12 Dose: 50 mg Multivitamins/Minerals (Therapeutic-M Tab) 1 tab PO DAILY [facility] Last Admin: 05/21/18 10:27 Dose: 1 tab Pantoprazole Sodium (Protonix Susp) 40 mg PEG DAILY [facility] Senna/Docusate Sodium (Senokot S 50 Mg-8.6 Mg) 1 tab PO HS [facility] Last Admin: 05/20/18 21:29 Dose: 1 tab Tamsulosin HCl (Flomax) 0.4 mg PO QPM [facility] Last Admin: 05/20/18 17:19 Dose: 0.4 mg Vitamin A (Vitamin A & D Oint Ud Foilpak) 1 ea TOP BID [facility] Last Admin: 06/11/18 08:17 Dose: 1 ea - Labs Labs: - Additional Findings Additional findings: - Constitutional Appears: Chronically Ill - ENT Exam Additional comments: trached and on the vent - Respiratory Exam Additional comments: breath sounds heard b/l is on the vent - Cardiovascular Exam Cardiovascular Exam: Tachycardia, +S1, +S2 - GI/Abdominal Exam GI & Abdominal Exam: Soft, Normal Bowel Sounds Additional comments: ND, NT - Extremities Exam Extremities Exam: Normal Inspection - Neurological Exam Additional comments: unresponsive Laboratory Results - last 72 hr 06/08/18 06/08/18 06/08/18 11:10 16:27 22:40 WBC RBC Hgb Hct MCV MCH MCHC RDW Plt Count MPV Neut % (Auto) Lymph % (Auto) [place] % (Auto) Eos % (Auto) Baso % (Auto) Neut # (Auto) Lymph # (Auto) [place] # (Auto) Eos # (Auto) Baso # (Auto) Neutrophils % (Manual) Lymphocytes % (Manual) Monocytes % (Manual) Eosinophils % (Manual) Platelet Estimate Hypochromasia (manual) Anisocytosis (manual) Ovalocytes PT INR APTT pCO2 pO2 HCO3 ABG pH ABG Total CO2 ABG O2 Saturation ABG O2 Content ABG Base Excess ABG Hemoglobin ABG Carboxyhemoglobin POC ABG HHb (Measured) ABG Methemoglobin ABG O2 Capacity Forrest Test A-a O2 Difference Hgb O2 Saturation Vent Mode Mechanical Rate FiO2 Tidal Volume PEEP Pressure Support Sodium Potassium Chloride Carbon Dioxide Anion Gap BUN Creatinine Est GFR ( Amer) Est GFR (Non-Af Amer) POC Glucose (mg/dL) 149 H 152 H 130 H Random Glucose Calcium Phosphorus Magnesium Total Bilirubin AST ALT Alkaline Phosphatase Total Protein Albumin Globulin Albumin/Globulin Ratio Blood Type Blood Type Confirm Antibody Screen BBK History Checked 06/09/18 06/09/18 06/09/18 04:00 04:25 04:25 WBC 9.3 RBC 2.89 L Hgb 7.9 L Hct 23.8 L MCV 82.4 MCH 27.2 MCHC 33.1 RDW 17.2 H Plt Count 320 MPV Neut % (Auto) Lymph % (Auto) [place] % (Auto) Eos % (Auto) Baso % (Auto) Neut # (Auto) Lymph # (Auto) [place] # (Auto) Eos # (Auto) Baso # (Auto) Neutrophils % (Manual) Lymphocytes % (Manual) Monocytes % (Manual) Eosinophils % (Manual) Platelet Estimate Hypochromasia (manual) Anisocytosis (manual) Ovalocytes PT INR APTT pCO2 38 pO2 91 HCO3 32.1 H ABG pH 7.54 H ABG Total CO2 33.7 H ABG O2 Saturation 99.6 H ABG O2 Content 11.3 L ABG Base Excess 9.2 H ABG Hemoglobin 8.2 L ABG Carboxyhemoglobin 1.2 POC ABG HHb (Measured) 0.4 ABG Methemoglobin 1.8 ABG O2 Capacity 11.3 L Forrest Test Yes A-a O2 Difference 147.0 Hgb O2 Saturation 96.6 Vent Mode Cpap Mechanical Rate FiO2 40.0 Tidal Volume PEEP 5 Pressure Support 15 Sodium 139 Potassium 4.0 Chloride 103 Carbon Dioxide 31 H Anion Gap 9 L BUN 27 H Creatinine 0.7 L Est GFR ( Amer) > 60 Est GFR (Non-Af Amer) > 60 POC Glucose (mg/dL) Random Glucose 143 H Calcium 8.6 Phosphorus Magnesium Total Bilirubin AST ALT Alkaline Phosphatase Total Protein Albumin Globulin Albumin/Globulin Ratio Blood Type Blood Type Confirm Antibody Screen BBK History Checked 06/09/18 06/09/18 06/09/18 05:47 11:03 13:40 WBC RBC Hgb Hct MCV MCH MCHC RDW Plt Count MPV Neut % (Auto) Lymph % (Auto) [place] % (Auto) Eos % (Auto) Baso % (Auto) Neut # (Auto) Lymph # (Auto) [place] # (Auto) Eos # (Auto) Baso # (Auto) Neutrophils % (Manual) Lymphocytes % (Manual) Monocytes % (Manual) Eosinophils % (Manual) Platelet Estimate Hypochromasia (manual) Anisocytosis (manual) Ovalocytes PT 14.2 H INR 1.3 APTT 32.8 pCO2 pO2 HCO3 ABG pH ABG Total CO2 ABG O2 Saturation ABG O2 Content ABG Base Excess ABG Hemoglobin ABG Carboxyhemoglobin POC ABG HHb (Measured) ABG Methemoglobin ABG O2 Capacity [place] Test A-a O2 Difference Hgb O2 Saturation Vent Mode Mechanical Rate FiO2 Tidal Volume PEEP Pressure Support Sodium Potassium Chloride Carbon Dioxide Anion Gap BUN Creatinine Est GFR ( Amer) Est GFR (Non-Af Amer) POC Glucose (mg/dL) 152 H 153 H Random Glucose Calcium Phosphorus Magnesium Total Bilirubin AST ALT Alkaline Phosphatase Total Protein Albumin Globulin Albumin/Globulin Ratio Blood Type Blood Type Confirm Antibody Screen BBK History Checked 06/09/18 06/09/18 06/10/18 16:26 20:44 04:38 WBC RBC Hgb Hct MCV MCH MCHC RDW Plt Count MPV Neut % (Auto) Lymph % (Auto) [place] % (Auto) Eos % (Auto) Baso % (Auto) Neut # (Auto) Lymph # (Auto) [place] # (Auto) Eos # (Auto) Baso # (Auto) Neutrophils % (Manual) Lymphocytes % (Manual) Monocytes % (Manual) Eosinophils % (Manual) Platelet Estimate Hypochromasia (manual) Anisocytosis (manual) Ovalocytes PT INR APTT pCO2 40 pO2 74 L HCO3 32.7 H ABG pH 7.53 H ABG Total CO2 34.6 H ABG O2 Saturation 99.4 H ABG O2 Content 11.6 L ABG Base Excess 9.9 H ABG Hemoglobin 8.5 L ABG Carboxyhemoglobin 2.1 H POC ABG HHb (Measured) 0.6 ABG Methemoglobin 1.2 ABG O2 Capacity 11.7 L Forrest Test Yes A-a O2 Difference 161.0 Hgb O2 Saturation 96.1 Vent Mode Cpap Mechanical Rate 0 FiO2 40.0 Tidal Volume 0 PEEP 5 Pressure Support 5 Sodium Potassium Chloride Carbon Dioxide Anion Gap BUN Creatinine Est GFR ( Amer) Est GFR (Non-Af Amer) POC Glucose (mg/dL) 167 H 167 H Random Glucose Calcium Phosphorus Magnesium Total Bilirubin AST ALT Alkaline Phosphatase Total Protein Albumin Globulin Albumin/Globulin Ratio Blood Type Blood Type Confirm Antibody Screen BBK History Checked 06/10/18 06/10/18 06/10/18 04:45 04:50 04:50 WBC 8.4 RBC 3.19 L Hgb 8.7 L Hct 26.7 L MCV 83.5 MCH 27.2 MCHC 32.5 L RDW 17.4 H Plt Count 327 MPV 9.0 Neut % (Auto) 78.7 H Lymph % (Auto) 9.7 L [place] % (Auto) 9.9 Eos % (Auto) 1.5 Baso % (Auto) 0.2 Neut # (Auto) 6.6 Lymph # (Auto) 0.8 L [place] # (Auto) 0.8 Eos # (Auto) 0.1 Baso # (Auto) 0.0 Neutrophils % (Manual) 80 H Lymphocytes % (Manual) 10 L Monocytes % (Manual) 8 Eosinophils % (Manual) 2 Platelet Estimate Normal Hypochromasia (manual) Moderate Anisocytosis (manual) Slight Ovalocytes Slight PT 14.4 H INR 1.3 APTT 32.4 pCO2 pO2 HCO3 ABG pH ABG Total CO2 ABG O2 Saturation ABG O2 Content ABG Base Excess ABG Hemoglobin ABG Carboxyhemoglobin POC ABG HHb (Measured) ABG Methemoglobin ABG O2 Capacity Forrest Test A-a O2 Difference Hgb O2 Saturation Vent Mode Mechanical Rate FiO2 Tidal Volume PEEP Pressure Support Sodium Potassium Chloride Carbon Dioxide Anion Gap BUN Creatinine Est GFR ( Amer) Est GFR (Non-Af Amer) POC Glucose (mg/dL) Random Glucose Calcium Phosphorus Magnesium Total Bilirubin AST ALT Alkaline Phosphatase Total Protein Albumin Globulin Albumin/Globulin Ratio Blood Type A NEGATIVE Blood Type Confirm Antibody Screen Negative BBK History Checked No verified bt 06/10/18 06/10/18 06/10/18 04:50 05:52 07:10 WBC RBC Hgb Hct MCV MCH MCHC RDW Plt Count MPV Neut % (Auto) Lymph % (Auto) [place] % (Auto) Eos % (Auto) Baso % (Auto) Neut # (Auto) Lymph # (Auto) [place] # (Auto) Eos # (Auto) Baso # (Auto) Neutrophils % (Manual) Lymphocytes % (Manual) Monocytes % (Manual) Eosinophils % (Manual) Platelet Estimate Hypochromasia (manual) Anisocytosis (manual) Ovalocytes PT INR APTT pCO2 pO2 HCO3 ABG pH ABG Total CO2 ABG O2 Saturation ABG O2 Content ABG Base Excess ABG Hemoglobin ABG Carboxyhemoglobin POC ABG HHb (Measured) ABG Methemoglobin ABG O2 Capacity Forrest Test A-a O2 Difference Hgb O2 Saturation Vent Mode Mechanical Rate FiO2 Tidal Volume PEEP Pressure Support Sodium 142 Potassium 4.0 Chloride 103 Carbon Dioxide 32 H Anion Gap 11 BUN 27 H Creatinine 0.6 L Est GFR ( Amer) > 60 Est GFR (Non-Af Amer) > 60 POC Glucose (mg/dL) 119 H Random Glucose 121 H Calcium 8.5 Phosphorus 3.3 Magnesium 2.2 Total Bilirubin 0.7 AST 34 ALT 28 Alkaline Phosphatase 97 Total Protein 7.1 Albumin 3.0 L Globulin 4.1 H Albumin/Globulin Ratio 0.7 L Blood Type Blood Type Confirm A NEGATIVE Antibody Screen BBK History Checked 06/10/18 06/10/18 06/10/18 11:37 16:39 21:08 WBC RBC Hgb Hct MCV MCH MCHC RDW Plt Count MPV Neut % (Auto) Lymph % (Auto) [place] % (Auto) Eos % (Auto) Baso % (Auto) Neut # (Auto) Lymph # (Auto) [place] # (Auto) Eos # (Auto) Baso # (Auto) Neutrophils % (Manual) Lymphocytes % (Manual) Monocytes % (Manual) Eosinophils % (Manual) Platelet Estimate Hypochromasia (manual) Anisocytosis (manual) Ovalocytes PT INR APTT pCO2 pO2 HCO3 ABG pH ABG Total CO2 ABG O2 Saturation ABG O2 Content ABG Base Excess ABG Hemoglobin ABG Carboxyhemoglobin POC ABG HHb (Measured) ABG Methemoglobin ABG O2 Capacity [place] Test A-a O2 Difference Hgb O2 Saturation Vent Mode Mechanical Rate FiO2 Tidal Volume PEEP Pressure Support Sodium Potassium Chloride Carbon Dioxide Anion Gap BUN Creatinine Est GFR ( Amer) Est GFR (Non-Af Amer) POC Glucose (mg/dL) 145 H 116 H 115 H Random Glucose Calcium Phosphorus Magnesium Total Bilirubin AST ALT Alkaline Phosphatase Total Protein Albumin Globulin Albumin/Globulin Ratio Blood Type Blood Type Confirm Antibody Screen BBK History Checked 06/11/18 06/11/18 06/11/18 05:00 05:00 05:00 WBC 10.2 RBC 3.18 L Hgb 8.6 L Hct 26.4 L MCV 83.2 MCH 27.0 MCHC 32.5 L RDW 17.6 H Plt Count 317 MPV 9.0 Neut % (Auto) 81.4 H Lymph % (Auto) 8.6 L [place] % (Auto) 9.6 Eos % (Auto) 0.2 Baso % (Auto) 0.2 Neut # (Auto) 8.3 H Lymph # (Auto) 0.9 L [place] # (Auto) 1.0 H Eos # (Auto) 0.0 Baso # (Auto) 0.0 Neutrophils % (Manual) Lymphocytes % (Manual) Monocytes % (Manual) Eosinophils % (Manual) Platelet Estimate Hypochromasia (manual) Anisocytosis (manual) Ovalocytes PT INR APTT pCO2 35 pO2 64 L HCO3 32.2 H ABG pH 7.57 H ABG Total CO2 33.2 H ABG O2 Saturation 97.7 ABG O2 Content 11.2 L ABG Base Excess 9.4 H ABG Hemoglobin 8.4 L ABG Carboxyhemoglobin 2.4 H POC ABG HHb (Measured) 2.2 ABG Methemoglobin 0.7 ABG O2 Capacity 11.5 L Forrest Test Yes A-a O2 Difference 177.0 Hgb O2 Saturation 94.6 L Vent Mode A/c Mechanical Rate 18 FiO2 40.0 Tidal Volume 400 PEEP 5 Pressure Support Sodium 145 Potassium 4.0 Chloride 106 Carbon Dioxide 31 H Anion Gap 12 BUN 29 H Creatinine 0.7 L Est GFR ( Amer) > 60 Est GFR (Non-Af Amer) > 60 POC Glucose (mg/dL) Random Glucose 109 Calcium 8.3 L Phosphorus Magnesium Total Bilirubin AST ALT Alkaline Phosphatase Total Protein Albumin Globulin Albumin/Globulin Ratio Blood Type Blood Type Confirm Antibody Screen BBK History Checked 06/11/18 06/11/18 05:12 11:09 WBC RBC Hgb Hct MCV MCH MCHC RDW Plt Count MPV Neut % (Auto) Lymph % (Auto) [place] % (Auto) Eos % (Auto) Baso % (Auto) Neut # (Auto) Lymph # (Auto) [place] # (Auto) Eos # (Auto) Baso # (Auto) Neutrophils % (Manual) Lymphocytes % (Manual) Monocytes % (Manual) Eosinophils % (Manual) Platelet Estimate Hypochromasia (manual) Anisocytosis (manual) Ovalocytes PT INR APTT pCO2 pO2 HCO3 ABG pH ABG Total CO2 ABG O2 Saturation ABG O2 Content ABG Base Excess ABG Hemoglobin ABG Carboxyhemoglobin POC ABG HHb (Measured) ABG Methemoglobin ABG O2 Capacity [place] Test A-a O2 Difference Hgb O2 Saturation Vent Mode Mechanical Rate FiO2 Tidal Volume PEEP Pressure Support Sodium Potassium Chloride Carbon Dioxide Anion Gap BUN Creatinine Est GFR ( Amer) Est GFR (Non-Af Amer) POC Glucose (mg/dL) 109 97 Random Glucose Calcium Phosphorus Magnesium Total Bilirubin AST ALT Alkaline Phosphatase Total Protein Albumin Globulin Albumin/Globulin Ratio Blood Type Blood Type Confirm Antibody Screen BBK History Checked Microbiology 05/31/18 12:34 Blood-Venous Blood Culture - Final NO GROWTH AFTER 5 DAYS 05/31/18 12:34 Blood-Venous Gram Stain - Final TEST NOT PERFORMED 05/31/18 12:44 Blood-Venous Blood Culture - Final NO GROWTH AFTER 5 DAYS 05/31/18 12:44 Blood-Venous Gram Stain - Final TEST NOT PERFORMED 05/28/18 05:00 Bronchial Washings Bronchial Culture - Final Renee Albicans 05/27/18 21:00 Blood-Venous Blood Culture - Final NO GROWTH AFTER 5 DAYS 05/27/18 21:00 Blood-Venous Gram Stain - Final TEST NOT PERFORMED 05/27/18 21:05 Blood-Venous Blood Culture - Final NO GROWTH AFTER 5 DAYS 05/27/18 21:05 Blood-Venous Gram Stain - Final TEST NOT PERFORMED 05/26/18 14:13 Blood-Venous Blood Culture - Final NO GROWTH AFTER 5 DAYS 05/26/18 14:13 Blood-Venous Gram Stain - Final TEST NOT PERFORMED 05/27/18 21:00 Trachasp Gram Stain - Final 05/27/18 21:00 Trachasp Sputum Culture - Final Yeast Species 05/24/18 14:15 Blood-Venous Blood Culture - Final NO GROWTH AFTER 5 DAYS 05/24/18 14:15 Blood-Venous Gram Stain - Final TEST NOT PERFORMED 05/24/18 14:00 Blood-Venous Blood Culture - Final NO GROWTH AFTER 5 DAYS 05/24/18 14:00 Blood-Venous Gram Stain - Final TEST NOT PERFORMED 05/27/18 21:00 Urine,Catheterized Urine Culture - Final No Growth (<1,000 CFU/ML) 05/24/18 15:00 Sputum Gram Stain - Final 05/24/18 15:00 Sputum Sputum Culture - Final Yeast Species 05/24/18 09:35 Urine,Catheterized Urine Culture - Final No Growth (<1,000 CFU/ML) 05/20/18 15:31 Blood-Venous Blood Culture - Final NO GROWTH AFTER 5 DAYS 05/20/18 15:31 Blood-Venous Gram Stain - Final TEST NOT PERFORMED 05/20/18 15:42 Blood-Venous Blood Culture - Final NO GROWTH AFTER 5 DAYS 05/20/18 15:42 Blood-Venous Gram Stain - Final TEST NOT PERFORMED 05/24/18 09:35 Naris MRSA Culture (Admit) - Final MRSA NOT DETECTED 05/21/18 16:57 Sputum Induced Gram Stain - Final 05/21/18 16:57 Sputum Induced Sputum Culture - Final Yeast Species 05/12/18 07:50 Blood Blood Culture - Final NO GROWTH AFTER 5 DAYS 05/12/18 07:50 Blood Gram Stain - Final TEST NOT PERFORMED 05/12/18 Unknown Blood Blood Culture - Final NO GROWTH AFTER 5 DAYS 05/12/18 Unknown Blood Gram Stain - Final TEST NOT PERFORMED 05/12/18 08:40 Urine,Catheterized Urine Culture - Final Escherichia Coli Assessment and Plan (1) Sepsis syndrome Status: Acute (2) Fever Status: Resolved (3) Hypoxemia Status: Chronic (4) Aspiration pneumonia Status: Acute - Assessment and Plan (Free Text) Assessment: A/P- 82 year old [place] resident male with dementia, admitted with fever initially and had UTI and ? asp pneumonia and was treated with IV antibiotiocs and was fever free and normal wbc and doing ok but few days ago had aspiration pneumonia and hypoxemic and rapid a.fib and is s/p intubation and in ICU. s/p trach and peg. febrile today and t-max-101.4 last night normal wbc today, cxr- right side infiltrates but improved compared to before. admission UA- Pos LE, neg Nitrates admission urine cx- E.Coli pansensitive- treated for this already blood cx- neg x 5 sputum cx- yeast BAL cx- C.Albicans PLan- advise to continue with IV meropenem empiric coverage day #16. also advise to continue with IV fluconazole for yeast in sputum.day #15 advise 5 more days of IV fluconzole. completed 10 days of IV empiric vanco. check blood cx x 2 today. all labs and imaging and chart notes reviewed. critical care time spent 30 minutes.
[2018-06-11] MEDS ORDERED: Glucagon Recombinant 1 mg Inj IM PRN (12:35)
[2018-06-11] MEDS ORDERED: Dextrose 50% SYRINGE Inj (50 ml) IV PRN (12:35)
[2018-06-11] MEDS: Pantoprazole 40 mg Susp UD PEG SCH (12:38)
--- NOTE | 2018-06-11 12:40 | CP.CCUPN ---
CCU Subjective - Physician Review Events Since Last Encounter (Free Text): 06/11/18 12:39 comatose, trach'd and PEG. CCU Objective - Vital Signs / Intake & Output Vital Signs (Last 4 hours): Vital Signs Temp Pulse Resp BP Pulse Ox 06/11/18 12:00 100.4 F H 74 27 H 154/79 H 100 06/11/18 11:00 76 28 H 140/70 100 06/11/18 09:53 100 F H 78 25 H 155/81 H 100 06/11/18 09:12 82 158/86 H Intake and Output (Last 8hrs): Intake & Output 06/10/18 06/11/18 06/11/18 22:59 06:59 14:59 Intake Total 6 114 410 Output Total 700 500 Balance -694 -386 410 Weight 134 lb 6.4 oz Intake: IV 6 14 10 Intake, Piggyback 100 150 Free Water Flush 250 Output: Urine 700 500 Urethral (Flowers) 700 500 - Physical Exam Head: Positive for: Atraumatic, Normocephalic Pupils: Positive for: PERRL Extroacular Muscles: Positive for: EOMI Conjunctiva: Positive for: Normal. Negative for: Injected, Icteric Mouth: Positive for: Moist Mucous Membranes Neck: Positive for: Normal Range of Motion, Trachea Midline Respiratory/Chest: Positive for: Good Air Exchange, Rales, Rhonchi. Negative for: Respiratory Distress, Accessory Muscle Use, Wheezes Cardiovascular: Positive for: Regular Rate and Rhythm, Normal S1, S2. Negative for: Murmurs Abdomen: Positive for: Normal Bowel Sounds. Negative for: Tenderness, Distention Neurological: Positive for: Other (opens eyes occasionally) - Medications Active Medications: Active Medications Generic Name Dose Route Start Last Admin Trade Name Freq PRN Reason Stop Dose Admin Acetaminophen 650 mg 06/10/18 23:39 Tylenol 650 Mg Supp [place] Q4 PRN Fever >100.4 F Acetylcysteine 2 ml 05/17/18 16:00 06/11/18 07:32 Mucomyst 10% 4ml IH 2 ml RQ8 KEN Administration Alendronate Sodium 70 mg 05/21/18 09:00 05/21/18 10:29 Fosamax PO 70 mg FR KEN Administration Artificial Tears 2 drop 05/17/18 22:00 06/11/18 09:14 Artificial Tears OU 2 drop Q6 KEN Administration Calcium Carbonate 500 mg 05/17/18 17:00 05/21/18 10:26 Oscal PO 500 mg BID KEN Administration Cholecalciferol 1,000 intlu 05/17/18 17:00 05/21/18 10:27 Vitamin D PO 1,000 intlu BID KEN Administration Dextrose 0 ml 06/11/18 12:35 Dextrose 50% Inj IV STAT PRN Hypoglycemia Protocol Protocol Dextrose 0 gm 06/11/18 12:35 Glutose 15 PO ONCE PRN Hypoglycemia Protocol Protocol Donepezil HCl 5 mg 05/17/18 22:00 05/20/18 21:28 Aricept PO 5 mg HS KEN Administration Enoxaparin Sodium 40 mg 06/07/18 11:30 06/11/18 09:17 Lovenox SC 40 mg DAILY KEN Administration Protocol Glucagon 0 mg 06/11/18 12:35 Glucagen Diagnostic Kit IM STAT PRN Hypoglycemia Protocol Protocol Fluconazole 50 mls @ 50 mls/hr 06/08/18 09:00 06/11/18 08:17 Diflucan Iv 100 Mg/50 Ml Ns IVPB 50 mls/hr DAILY KEN Administration Protocol Insulin Human Lispro 0 units 06/11/18 12:45 Humalog SC Q6H KEN Protocol Ipratropium [place] 0.5 mg 06/08/18 00:00 06/11/18 07:33 Atrovent IH 0.5 mg RQ8 KEN Administration Memantine 5 mg 05/17/18 21:00 05/21/18 10:25 Namenda PO 5 mg Q12 KEN Administration Metoprolol Tartrate 50 mg 05/28/18 09:00 06/11/18 09:12 Lopressor PO 50 mg Q12 KEN Administration Multivitamins/Minerals 1 tab 05/18/18 09:00 05/21/18 10:27 Therapeutic-M Tab PO 1 tab DAILY KEN Administration Pantoprazole Sodium 40 mg 06/11/18 10:43 06/11/18 12:38 Protonix Susp PEG 40 mg DAILY KEN Administration Senna/Docusate Sodium 1 tab 05/17/18 22:00 05/20/18 21:29 Senokot S 50 Mg-8.6 Mg PO 1 tab HS KEN Administration Tamsulosin HCl 0.4 mg 05/17/18 18:00 05/20/18 17:19 Flomax PO 0.4 mg QPM KEN Administration Vitamin A 1 ea 05/16/18 17:45 06/11/18 08:17 Vitamin A & D Oint Ud Foilpak TOP 1 ea BID KEN Administration - Patient Studies Lab Studies: Lab Studies 06/11/18 06/11/18 06/11/18 Range/Units 11:09 05:12 05:00 WBC (4.8-10.8) K/uL RBC (4.40-5.90) Mil/uL Hgb (12.0-18.0) g/dL Hct (35.0-51.0) % MCV (80.0-94.0) fl MCH (27.0-31.0) pg MCHC (33.0-37.0) g/dL RDW (11.5-14.5) % Plt Count (130-400) K/uL MPV (7.2-11.7) fl Neut % (Auto) (50.0-75.0) % Lymph % (Auto) (20.0-40.0) % [place] % (Auto) (0.0-10.0) % Eos % (Auto) (0.0-4.0) % Baso % (Auto) (0.0-2.0) % Neut # (Auto) (1.8-7.0) K/uL Lymph # (Auto) (1.0-4.3) K/uL [place] # (Auto) (0.0-0.8) K/uL Eos # (Auto) (0.0-0.7) K/uL Baso # (Auto) (0.0-0.2) K/uL Neutrophils % (Manual) (42-75) % Lymphocytes % (Manual) (20-50) % Monocytes % (Manual) (0-10) % Eosinophils % (Manual) (0-7) % Platelet Estimate (NORMAL) Hypochromasia (manual) Anisocytosis (manual) Ovalocytes pCO2 35 (35-45) mm/Hg pO2 64 L (80-100) mm/Hg HCO3 32.2 H (21-28) mmol/L ABG pH 7.57 H (7.35-7.45) ABG Total CO2 33.2 H (22-28) mmol/L ABG O2 Saturation 97.7 (95-98) % ABG O2 Content 11.2 L (15-23) ML/dL ABG Base Excess 9.4 H (-2.0-3.0) mmol/L ABG Hemoglobin 8.4 L (11.7-17.4) g/dL ABG Carboxyhemoglobin 2.4 H (0.5-1.5) % POC ABG HHb (Measured) 2.2 (0.0-5.0) % ABG Methemoglobin 0.7 (0.0-3.0) % ABG O2 Capacity 11.5 L (16-24) mL/dL Forrest Test Yes A-a O2 Difference 177.0 mm/Hg Hgb O2 Saturation 94.6 L (95.0-98.0) % Vent Mode A/c Mechanical Rate 18 FiO2 40.0 % Tidal Volume 400 PEEP 5 Sodium (132-148) mmol/l Potassium (3.6-5.0) MMOL/L Chloride (98-107) mmol/L Carbon Dioxide (22-30) mmol/L Anion Gap (10-20) BUN (9-20) mg/dl Creatinine (0.8-1.5) mg/dl Est GFR ( Amer) Est GFR (Non-Af Amer) POC Glucose (mg/dL) 97 109 (65-110) mg/dL Random Glucose (75-110) mg/dL Calcium (8.4-10.2) mg/dL 06/11/18 06/11/18 06/10/18 Range/Units 05:00 05:00 21:08 WBC 10.2 (4.8-10.8) K/uL RBC 3.18 L (4.40-5.90) Mil/uL Hgb 8.6 L (12.0-18.0) g/dL Hct 26.4 L (35.0-51.0) % MCV 83.2 (80.0-94.0) fl MCH 27.0 (27.0-31.0) pg MCHC 32.5 L (33.0-37.0) g/dL RDW 17.6 H (11.5-14.5) % Plt Count 317 (130-400) K/uL MPV 9.0 (7.2-11.7) fl Neut % (Auto) 81.4 H (50.0-75.0) % Lymph % (Auto) 8.6 L (20.0-40.0) % [place] % (Auto) 9.6 (0.0-10.0) % Eos % (Auto) 0.2 (0.0-4.0) % Baso % (Auto) 0.2 (0.0-2.0) % Neut # (Auto) 8.3 H (1.8-7.0) K/uL Lymph # (Auto) 0.9 L (1.0-4.3) K/uL [place] # (Auto) 1.0 H (0.0-0.8) K/uL Eos # (Auto) 0.0 (0.0-0.7) K/uL Baso # (Auto) 0.0 (0.0-0.2) K/uL Neutrophils % (Manual) (42-75) % Lymphocytes % (Manual) (20-50) % Monocytes % (Manual) (0-10) % Eosinophils % (Manual) (0-7) % Platelet Estimate (NORMAL) Hypochromasia (manual) Anisocytosis (manual) Ovalocytes pCO2 (35-45) mm/Hg pO2 (80-100) mm/Hg HCO3 (21-28) mmol/L ABG pH (7.35-7.45) ABG Total CO2 (22-28) mmol/L ABG O2 Saturation (95-98) % ABG O2 Content (15-23) ML/dL ABG Base Excess (-2.0-3.0) mmol/L ABG Hemoglobin (11.7-17.4) g/dL ABG Carboxyhemoglobin (0.5-1.5) % POC ABG HHb (Measured) (0.0-5.0) % ABG Methemoglobin (0.0-3.0) % ABG O2 Capacity (16-24) mL/dL Forrest Test A-a O2 Difference mm/Hg Hgb O2 Saturation (95.0-98.0) % Vent Mode Mechanical Rate FiO2 % Tidal Volume PEEP Sodium 145 (132-148) mmol/l Potassium 4.0 (3.6-5.0) MMOL/L Chloride 106 (98-107) mmol/L Carbon Dioxide 31 H (22-30) mmol/L Anion Gap 12 (10-20) BUN 29 H (9-20) mg/dl Creatinine 0.7 L (0.8-1.5) mg/dl Est GFR ( Amer) > 60 Est GFR (Non-Af Amer) > 60 POC Glucose (mg/dL) 115 H (65-110) mg/dL Random Glucose 109 (75-110) mg/dL Calcium 8.3 L (8.4-10.2) mg/dL 06/10/18 06/10/18 06/10/18 Range/Units 16:39 11:37 04:50 WBC (4.8-10.8) K/uL RBC (4.40-5.90) Mil/uL Hgb (12.0-18.0) g/dL Hct (35.0-51.0) % MCV (80.0-94.0) fl MCH (27.0-31.0) pg MCHC (33.0-37.0) g/dL RDW (11.5-14.5) % Plt Count (130-400) K/uL MPV (7.2-11.7) fl Neut % (Auto) (50.0-75.0) % Lymph % (Auto) (20.0-40.0) % [place] % (Auto) (0.0-10.0) % Eos % (Auto) (0.0-4.0) % Baso % (Auto) (0.0-2.0) % Neut # (Auto) (1.8-7.0) K/uL Lymph # (Auto) (1.0-4.3) K/uL [place] # (Auto) (0.0-0.8) K/uL Eos # (Auto) (0.0-0.7) K/uL Baso # (Auto) (0.0-0.2) K/uL Neutrophils % (Manual) 80 H (42-75) % Lymphocytes % (Manual) 10 L (20-50) % Monocytes % (Manual) 8 (0-10) % Eosinophils % (Manual) 2 (0-7) % Platelet Estimate Normal (NORMAL) Hypochromasia (manual) Moderate Anisocytosis (manual) Slight Ovalocytes Slight pCO2 (35-45) mm/Hg pO2 (80-100) mm/Hg HCO3 (21-28) mmol/L ABG pH (7.35-7.45) ABG Total CO2 (22-28) mmol/L ABG O2 Saturation (95-98) % ABG O2 Content (15-23) ML/dL ABG Base Excess (-2.0-3.0) mmol/L ABG Hemoglobin (11.7-17.4) g/dL ABG Carboxyhemoglobin (0.5-1.5) % POC ABG HHb (Measured) (0.0-5.0) % ABG Methemoglobin (0.0-3.0) % ABG O2 Capacity (16-24) mL/dL Forrest Test A-a O2 Difference mm/Hg Hgb O2 Saturation (95.0-98.0) % Vent Mode Mechanical Rate FiO2 % Tidal Volume PEEP Sodium (132-148) mmol/l Potassium (3.6-5.0) MMOL/L Chloride (98-107) mmol/L Carbon Dioxide (22-30) mmol/L Anion Gap (10-20) BUN (9-20) mg/dl Creatinine (0.8-1.5) mg/dl Est GFR ( Amer) Est GFR (Non-Af Amer) POC Glucose (mg/dL) 116 H 145 H (65-110) mg/dL Random Glucose (75-110) mg/dL Calcium (8.4-10.2) mg/dL Laboratory Results - last 24 hr 06/10/18 06/10/18 06/10/18 04:50 11:37 16:39 WBC RBC Hgb Hct MCV MCH MCHC RDW Plt Count MPV Neut % (Auto) Lymph % (Auto) [place] % (Auto) Eos % (Auto) Baso % (Auto) Neut # (Auto) Lymph # (Auto) [place] # (Auto) Eos # (Auto) Baso # (Auto) Neutrophils % (Manual) 80 H Lymphocytes % (Manual) 10 L Monocytes % (Manual) 8 Eosinophils % (Manual) 2 Platelet Estimate Normal Hypochromasia (manual) Moderate Anisocytosis (manual) Slight Ovalocytes Slight pCO2 pO2 HCO3 ABG pH ABG Total CO2 ABG O2 Saturation ABG O2 Content ABG Base Excess ABG Hemoglobin ABG Carboxyhemoglobin POC ABG HHb (Measured) ABG Methemoglobin ABG O2 Capacity Forrest Test A-a O2 Difference Hgb O2 Saturation Vent Mode Mechanical Rate FiO2 Tidal Volume PEEP Sodium Potassium Chloride Carbon Dioxide Anion Gap BUN Creatinine Est GFR ( Amer) Est GFR (Non-Af Amer) POC Glucose (mg/dL) 145 H 116 H Random Glucose Calcium 06/10/18 06/11/18 06/11/18 21:08 05:00 05:00 WBC 10.2 RBC 3.18 L Hgb 8.6 L Hct 26.4 L MCV 83.2 MCH 27.0 MCHC 32.5 L RDW 17.6 H Plt Count 317 MPV 9.0 Neut % (Auto) 81.4 H Lymph % (Auto) 8.6 L [place] % (Auto) 9.6 Eos % (Auto) 0.2 Baso % (Auto) 0.2 Neut # (Auto) 8.3 H Lymph # (Auto) 0.9 L [place] # (Auto) 1.0 H Eos # (Auto) 0.0 Baso # (Auto) 0.0 Neutrophils % (Manual) Lymphocytes % (Manual) Monocytes % (Manual) Eosinophils % (Manual) Platelet Estimate Hypochromasia (manual) Anisocytosis (manual) Ovalocytes pCO2 pO2 HCO3 ABG pH ABG Total CO2 ABG O2 Saturation ABG O2 Content ABG Base Excess ABG Hemoglobin ABG Carboxyhemoglobin POC ABG HHb (Measured) ABG Methemoglobin ABG O2 Capacity Forrest Test A-a O2 Difference Hgb O2 Saturation Vent Mode Mechanical Rate FiO2 Tidal Volume PEEP Sodium 145 Potassium 4.0 Chloride 106 Carbon Dioxide 31 H Anion Gap 12 BUN 29 H Creatinine 0.7 L Est GFR ( Amer) > 60 Est GFR (Non-Af Amer) > 60 POC Glucose (mg/dL) 115 H Random Glucose 109 Calcium 8.3 L 06/11/18 06/11/18 06/11/18 05:00 05:12 11:09 WBC RBC Hgb Hct MCV MCH MCHC RDW Plt Count MPV Neut % (Auto) Lymph % (Auto) [place] % (Auto) Eos % (Auto) Baso % (Auto) Neut # (Auto) Lymph # (Auto) [place] # (Auto) Eos # (Auto) Baso # (Auto) Neutrophils % (Manual) Lymphocytes % (Manual) Monocytes % (Manual) Eosinophils % (Manual) Platelet Estimate Hypochromasia (manual) Anisocytosis (manual) Ovalocytes pCO2 35 pO2 64 L HCO3 32.2 H ABG pH 7.57 H ABG Total CO2 33.2 H ABG O2 Saturation 97.7 ABG O2 Content 11.2 L ABG Base Excess 9.4 H ABG Hemoglobin 8.4 L ABG Carboxyhemoglobin 2.4 H POC ABG HHb (Measured) 2.2 ABG Methemoglobin 0.7 ABG O2 Capacity 11.5 L Forrest Test Yes A-a O2 Difference 177.0 Hgb O2 Saturation 94.6 L Vent Mode A/c Mechanical Rate 18 FiO2 40.0 Tidal Volume 400 PEEP 5 Sodium Potassium Chloride Carbon Dioxide Anion Gap BUN Creatinine Est GFR ( Amer) Est GFR (Non-Af Amer) POC Glucose (mg/dL) 109 97 Random Glucose Calcium Radiology Impressions: Radiology Impressions Chest X-Ray 06/11/18 06:00 IMPRESSION: Stable infiltrate primarily right upper lobe but also right perihilar region and minimally at the right base. No interval improvement. No left-sided infiltrate. No pleural effusion or pneumothorax bilaterally. Fingerstick Blood Sugar Results: 97 Review of Systems - Review of Systems Systems not reviewed;Unavailable: Altered Mental Status Critical Care Progress Note - Ventilator Checklist Head of Bed 30 Degrees: Yes Daily Sedation Vacation: Yes Daily Assessment of Readiness to Wean: Yes Daily Spontaneous Breathing Trial: Yes PUD Prophalyxis: Yes DVT Prophylaxis: Yes Oral Care with Chlorhexidine Gluconate {CHG}: Yes - Nutrition Nutrition: Nutrition Category Date Time Status NPO Diet [DIET] Diets 06/09/18 Dinner Active Assessment/Plan (1) Acute respiratory failure with hypoxia Assessment and plan: 81yo M. PMHx HTN, DM type 2, Dementia. p/w severe sepsis, acute respiratory failure secondary to multilobar pneumonia. patient is now s/p trach/PEG. Neuro: moves spontaneously, does not respond to verbal commands, no sedation for most of his hospital course Pulm: acute respiratory failure, now trach'd on vent. Weaning trials daily, low probability of success given severe dementia. CV: hemodynamically stable. HTN, lopressor 50mg q12h. Hem: no acute issues Renal: urine output wnl, will monitor Endo: DM type 2, SISS for coverage GI: Glucerna@70, free water@150ml q4h. ID: fungal pneumonia improving on Fluconazole. DVT proph - lovenox GI proph - protonix flowers for strict I/O's during acute illness Code status - DNR Patient to be evaluated for transfer to [facility]. Critical Care time spent 35 minutes Multi-disciplinary rounds were performed with house staff, nursing, speech therapy, respiratory therapy, pharmacy and nutrition with integrated input from the primary team/attending and other consulting services. The documented time is cumulative and includes review of patient data/exams/labs/chart review and examination of the patient on rounds and throughout the day; time is exclusive of any procedures or teaching time. Current Visit: Yes Status: Acute Priority: High Comment: Vent weaning in progress, Off seations Aggressive pulmonary toilet, chest PT, suctioning
--- NOTE | 2018-06-11 13:05 | RAD ---
Date of service: 06/10/2018 HISTORY: PEG evaluation COMPARISON: None available. FINDINGS: BOWEL: Contrast injected through the PEG tube confirmed to reside within the stomach. BONES: Normal. OTHER FINDINGS: None. IMPRESSION: Satisfactory position of PEG tube confirmed to be within the stomach.
--- NOTE | 2018-06-11 13:42 | CP.PCM.PN ---
Subjective - Date & Time of Evaluation Date of Evaluation: 06/11/18 Time of Evaluation: 13:42 - Subjective Subjective: no overnight events Objective - Vital Signs/Intake and Output Vital Signs (last 24 hours): Temp Pulse Resp BP Pulse Ox 100.4 F H 74 27 H 154/79 H 100 06/11/18 12:00 06/11/18 12:00 06/11/18 12:00 06/11/18 12:00 06/11/18 12:00 Intake and Output: 06/11/18 06/11/18 06:59 18:59 Intake Total 120 410 Output Total 500 Balance -380 410 - Medications Medications: Current Medications Acetaminophen (Tylenol 650 Mg Supp) 650 mg [place] Q4 PRN PRN Reason: Fever >100.4 F Acetylcysteine (Mucomyst 10% 4ml) 2 ml IH RQ8 KEN Last Admin: 06/11/18 07:32 Dose: 2 ml Alendronate Sodium (Fosamax) 70 mg PO FR KEN Last Admin: 05/21/18 10:29 Dose: 70 mg Artificial Tears (Artificial Tears) 2 drop OU Q6 KEN Last Admin: 06/11/18 09:14 Dose: 2 drop Calcium Carbonate (Oscal) 500 mg PO BID KEN Last Admin: 05/21/18 10:26 Dose: 500 mg Cholecalciferol (Vitamin D) 1,000 intlu PO BID KEN Last Admin: 05/21/18 10:27 Dose: 1,000 intlu Dextrose (Dextrose 50% Inj) 0 ml IV STAT PRN; Protocol PRN Reason: Hypoglycemia Protocol Dextrose (Glutose 15) 0 gm PO ONCE PRN; Protocol PRN Reason: Hypoglycemia Protocol Donepezil HCl (Aricept) 5 mg PO HS [facility] Last Admin: 05/20/18 21:28 Dose: 5 mg Enoxaparin Sodium (Lovenox) 40 mg SC DAILY KEN; Protocol Last Admin: 06/11/18 09:17 Dose: 40 mg Glucagon (Glucagen Diagnostic Kit) 0 mg IM STAT PRN; Protocol PRN Reason: Hypoglycemia Protocol Fluconazole (Diflucan Iv 100 Mg/50 Ml Ns) 50 mls @ 50 mls/hr IVPB DAILY [facility]; Protocol Last Admin: 06/11/18 08:17 Dose: 50 mls/hr Insulin Human Lispro (Humalog) 0 units SC Q6H KEN; Protocol Ipratropium [place] (Atrovent) 0.5 mg IH RQ8 [facility] Last Admin: 06/11/18 07:33 Dose: 0.5 mg Memantine (Namenda) 5 mg PO Q12 [facility] Last Admin: 05/21/18 10:25 Dose: 5 mg Metoprolol Tartrate (Lopressor) 50 mg PO Q12 [facility] Last Admin: 06/11/18 09:12 Dose: 50 mg Multivitamins/Minerals (Therapeutic-M Tab) 1 tab PO DAILY [facility] Last Admin: 05/21/18 10:27 Dose: 1 tab Pantoprazole Sodium (Protonix Susp) 40 mg PEG DAILY [facility] Last Admin: 06/11/18 12:38 Dose: 40 mg Senna/Docusate Sodium (Senokot S 50 Mg-8.6 Mg) 1 tab PO HS [facility] Last Admin: 05/20/18 21:29 Dose: 1 tab Tamsulosin HCl (Flomax) 0.4 mg PO QPM [facility] Last Admin: 05/20/18 17:19 Dose: 0.4 mg Vitamin A (Vitamin A & D Oint Ud Foilpak) 1 ea TOP BID [facility] Last Admin: 06/11/18 08:17 Dose: 1 ea - Labs Labs: 06/11/18 05:00 06/11/18 05:00 PT 14.4 Seconds (9.8-13.1) H 06/10/18 04:50 INR 1.3 06/10/18 04:50 APTT 32.4 Seconds (25.6-37.1) 06/10/18 04:50 - Neck Exam Neck Exam: Normal Inspection - Respiratory Exam Respiratory Exam: Rhonchi, NORMAL BREATHING PATTERN - Cardiovascular Exam Cardiovascular Exam: REGULAR RHYTHM - GI/Abdominal Exam GI & Abdominal Exam: Soft, Normal Bowel Sounds Assessment and Plan - Assessment and Plan (Free Text) Assessment: 82 yo male with sepsis s/p G tube dc planning once able
--- NOTE | 2018-06-11 13:52 | PQF ---
PROVIDER RESPONSE TEXT: Disagree with the dx. Malnutrition. REVIEWER QUERY TEXT: Malnutrition Severity Malnutrition is documented in the Medical Record. Please specify the severity if in agreement: Such as: -- Mild - first degree -- Moderate - second degree -- Severe - third degree -- Severe malnutrition with marasmus -- Other, please specify 06/07 follow up note: BMI:22.4 -- Glucerna via OGT: Anthropometric Measurements: (-) 17lb/10.1% in 5 days probably secondary to fluid shifts Continue to monitor TF, weight, medication,labs and skin 06/08 Surgery: Tentative plan for trach/possible PEG placement on 06/10/1806/08 GI: with dysphagia 06/09 Surgery: malnutrition The patient's Clinical Indicators include: --- Query created by: Brisa Pizano on 06/10/2018 10:06 AM Electronically signed by: Ramiro Hernández MD 06/11/2018 1:49 PM
[2018-06-11] MEDS: Insulin Lispro (humaLOG) 100 Units/ml Inj SC SCH ×2 (14:00→20:25)
--- NOTE | 2018-06-11 14:13 | CP.PCM.PN ---
Subjective - Date & Time of Evaluation Date of Evaluation: 06/11/18 Time of Evaluation: 10:40 - Subjective Subjective: F/U Respiratory Failure/Tracheostomy. Pt with minimal response to tactile stimuli. Objective - Vital Signs/Intake and Output Vital Signs (last 24 hours): Temp Pulse Resp BP Pulse Ox 100.4 F H 86 27 H 125/66 100 06/11/18 12:00 06/11/18 13:00 06/11/18 13:00 06/11/18 13:00 06/11/18 13:00 Intake and Output: 06/11/18 06/11/18 06:59 18:59 Intake Total 120 410 Output Total 500 Balance -380 410 - Medications Medications: Current Medications Acetaminophen (Tylenol 650 Mg Supp) 650 mg [place] Q4 PRN PRN Reason: Fever >100.4 F Acetylcysteine (Mucomyst 10% 4ml) 2 ml IH RQ8 KEN Last Admin: 06/11/18 07:32 Dose: 2 ml Alendronate Sodium (Fosamax) 70 mg PO FR KEN Last Admin: 05/21/18 10:29 Dose: 70 mg Artificial Tears (Artificial Tears) 2 drop OU Q6 KEN Last Admin: 06/11/18 09:14 Dose: 2 drop Calcium Carbonate (Oscal) 500 mg PO BID KEN Last Admin: 05/21/18 10:26 Dose: 500 mg Cholecalciferol (Vitamin D) 1,000 intlu PO BID KEN Last Admin: 05/21/18 10:27 Dose: 1,000 intlu Dextrose (Dextrose 50% Inj) 0 ml IV STAT PRN; Protocol PRN Reason: Hypoglycemia Protocol Dextrose (Glutose 15) 0 gm PO ONCE PRN; Protocol PRN Reason: Hypoglycemia Protocol Donepezil HCl (Aricept) 5 mg PO HS [facility] Last Admin: 05/20/18 21:28 Dose: 5 mg Enoxaparin Sodium (Lovenox) 40 mg SC DAILY KEN; Protocol Last Admin: 06/11/18 09:17 Dose: 40 mg Glucagon (Glucagen Diagnostic Kit) 0 mg IM STAT PRN; Protocol PRN Reason: Hypoglycemia Protocol Fluconazole (Diflucan Iv 100 Mg/50 Ml Ns) 50 mls @ 50 mls/hr IVPB DAILY KEN; Protocol Last Admin: 06/11/18 08:17 Dose: 50 mls/hr Insulin Human Lispro (Humalog) 0 units SC Q6H [facility]; Protocol Last Admin: 06/11/18 14:00 Dose: Not Given Ipratropium [place] (Atrovent) 0.5 mg IH RQ8 [facility] Last Admin: 06/11/18 07:33 Dose: 0.5 mg Memantine (Namenda) 5 mg PO Q12 [facility] Last Admin: 05/21/18 10:25 Dose: 5 mg Metoprolol Tartrate (Lopressor) 50 mg PO Q12 [facility] Last Admin: 06/11/18 09:12 Dose: 50 mg Multivitamins/Minerals (Therapeutic-M Tab) 1 tab PO DAILY [facility] Last Admin: 05/21/18 10:27 Dose: 1 tab Pantoprazole Sodium (Protonix Susp) 40 mg PEG DAILY [facility] Last Admin: 06/11/18 12:38 Dose: 40 mg Senna/Docusate Sodium (Senokot S 50 Mg-8.6 Mg) 1 tab PO HS [facility] Last Admin: 05/20/18 21:29 Dose: 1 tab Tamsulosin HCl (Flomax) 0.4 mg PO QPM [facility] Last Admin: 05/20/18 17:19 Dose: 0.4 mg Vitamin A (Vitamin A & D Oint Ud Foilpak) 1 ea TOP BID [facility] Last Admin: 06/11/18 08:17 Dose: 1 ea - Labs Labs: 06/11/18 05:00 06/11/18 05:00 PT 14.4 Seconds (9.8-13.1) H 06/10/18 04:50 INR 1.3 06/10/18 04:50 APTT 32.4 Seconds (25.6-37.1) 06/10/18 04:50 - Constitutional Appears: Chronically Ill - Head Exam Head Exam: NORMAL INSPECTION - Eye Exam Eye Exam: PERRL - ENT Exam ENT Exam: Normal Exam - Neck Exam Neck Exam: Normal Inspection Additional comments: Tracheostomy. - Respiratory Exam Respiratory Exam: Decreased Breath Sounds (at bases), Rhonchi - Cardiovascular Exam Cardiovascular Exam: REGULAR RHYTHM - GI/Abdominal Exam GI & Abdominal Exam: Soft, Normal Bowel Sounds Additional comments: Peg tube. - Extremities Exam Additional comments: Edema - Back Exam Additional comments: Sacral ulcer - Psychiatric Exam Additional comments: Minimal response to tactile stimuli - Skin Skin Exam: Warm Assessment and Plan (1) Aspiration pneumonia Status: Acute (2) E. coli UTI Status: Resolved (3) Fever Status: Resolved (4) Sepsis syndrome Status: Acute (5) Hypoxemia Status: Chronic (6) Dementia Status: Chronic (7) HTN (hypertension) Status: Chronic (8) DMII (diabetes mellitus, type 2) Status: Chronic - Assessment and Plan (Free Text) Plan: PRVC/Ac 18, FIO2 40%, continue Lovenox, Diflucan, Humalog, Lopressor and rest of Tx. Critical care time: 34 min.
[2018-06-11] MEDS: Acetaminophen 650mg/20.3ml solution UD PO PRN ×2 (16:32→20:23)
[2018-06-12] MEDS: Meropenem 1 GM in Sodium Chloride 0.9% 100 ML IVPB SCH ×3 (01:30→17:31)
[2018-06-12] MEDS: Insulin Lispro (humaLOG) 100 Units/ml Inj SC SCH ×5 (02:30→23:45)
[2018-06-12] MEDS: Artificial Tears Opht Soln OU SCH ×4 (03:32→21:58)
[2018-06-12 04:32] LABS: ABG ALLEN TEST YES; ARTERIAL BLOOD GAS HCO3 32.2 mmol/L (21-28); ARTERIAL BLOOD GAS HEMOGLOBIN 8.2 g/dL (11.7-17.4); ARTERIAL BLOOD GAS O2 CAPACITY 11.6 mL/dL (16-24); ARTERIAL BLOOD GAS O2 CONTENT 11.5 ML/dL (15-23); ARTERIAL BLOOD GAS O2 SAT 99.2 % (95-98); ARTERIAL BLOOD GAS PCO2 37 mm/Hg (35-45); ARTERIAL BLOOD GAS PH 7.55 (7.35-7.45); ARTERIAL BLOOD GAS PO2 131 mm/Hg (80-100); ARTERIAL BLOOD GAS TCO2 33.5 mmol/L (22-28)
[2018-06-12 05:29] LABS: BLOOD UREA NITROGEN 28 mg/dl (9-20); CALCIUM 8.2 mg/dL (8.4-10.2); GFR NON-AFRICAN AMERICAN > 60
[2018-06-12 05:34] LABS: BASO % 0.3 % (0.0-2.0); EOS # 0.1 K/uL (0.0-0.7); EOS % 1.5 % (0.0-4.0); HEMOGLOBIN 8.1 g/dL (12.0-18.0); LYMPH # 0.9 K/uL (1.0-4.3); LYMPH % 10.1 % (20.0-40.0); MEAN CELL VOLUME 83.9 fl (80.0-94.0); MEAN CORPUSCULAR HEMOGLOBIN 27.1 pg (27.0-31.0); MEAN CORPUSCULAR HGB CONC 32.3 g/dL (33.0-37.0); MONO # 0.8 K/uL (0.0-0.8); MONO % 9.6 % (0.0-10.0); NEUT # 6.6 K/uL (1.8-7.0); NEUT % 78.5 % (50.0-75.0); RBC 2.98 Mil/uL (4.40-5.90); WHITE BLOOD COUNT 8.5 K/uL (4.8-10.8)
--- NOTE | 2018-06-12 07:34 | CP.PCM.PN ---
Subjective - Date & Time of Evaluation Date of Evaluation: 06/12/18 Time of Evaluation: 06:50 - Subjective Subjective: General Surgery Note for Dr. Keita Patient seen and examined at bedside. No acute event overnight. Patient is s/p tracheostomy and PEG Tube placement POD#2. He is on PSV 40%/5/5. Will try trach collar today. Tube feeds are at goal. Patient is hemodynamically normal and has been afebrile. ROS unobtainable. Objective - Vital Signs/Intake and Output Vital Signs (last 24 hours): Temp Pulse Resp BP Pulse Ox 100.3 F H 76 25 H 155/75 H 98 06/12/18 01:00 06/12/18 01:00 06/12/18 01:00 06/12/18 01:00 06/12/18 01:00 Intake and Output: 06/12/18 06/12/18 06:59 18:59 Intake Total 910 Balance 910 - Medications Medications: Current Medications Acetaminophen (Tylenol 650 Mg Supp) 650 mg [place] Q4 PRN PRN Reason: Fever >100.4 F Acetaminophen (Tylenol 650mg/20.3ml Solution Ud) 650 mg PO Q4 PRN PRN Reason: for temp 100.4 and above Last Admin: 06/11/18 20:23 Dose: 650 mg Acetylcysteine (Mucomyst 10% 4ml) 2 ml IH RQ8 [facility] Last Admin: 06/11/18 23:37 Dose: 2 ml Alendronate Sodium (Fosamax) 70 mg PO FR KEN Last Admin: 05/21/18 10:29 Dose: 70 mg Artificial Tears (Artificial Tears) 2 drop OU Q6 KEN Last Admin: 06/12/18 03:32 Dose: 2 drop Calcium Carbonate (Oscal) 500 mg PO BID [facility] Last Admin: 05/21/18 10:26 Dose: 500 mg Cholecalciferol (Vitamin D) 1,000 intlu PO BID [facility] Last Admin: 05/21/18 10:27 Dose: 1,000 intlu Dextrose (Dextrose 50% Inj) 0 ml IV STAT PRN; Protocol PRN Reason: Hypoglycemia Protocol Dextrose (Glutose 15) 0 gm PO ONCE PRN; Protocol PRN Reason: Hypoglycemia Protocol Donepezil HCl (Aricept) 5 mg PO HS [facility] Last Admin: 02/21/19 21:28 Dose: 5 mg Enoxaparin Sodium (Lovenox) 40 mg SC DAILY KEN; Protocol Last Admin: 06/11/18 09:17 Dose: 40 mg Glucagon (Glucagen Diagnostic Kit) 0 mg IM STAT PRN; Protocol PRN Reason: Hypoglycemia Protocol Fluconazole (Diflucan Iv 100 Mg/50 Ml Ns) 50 mls @ 50 mls/hr IVPB DAILY KEN; Protocol Last Admin: 06/11/18 08:17 Dose: 50 mls/hr Meropenem 1 gm/ Sodium (Chloride) 100 mls @ 100 mls/hr IVPB Q8 KEN; Protocol Last Admin: 06/12/18 01:30 Dose: 100 mls/hr Insulin Human Lispro (Humalog) 0 units SC Q6H KEN; Protocol Last Admin: 06/12/18 02:30 Dose: Not Given Ipratropium [place] (Atrovent) 0.5 mg IH RQ8 KEN Last Admin: 06/11/18 23:37 Dose: 0.5 mg Memantine (Namenda) 5 mg PO Q12 KEN Last Admin: 05/21/18 10:25 Dose: 5 mg Metoprolol Tartrate (Lopressor) 50 mg PO Q12 KEN Last Admin: 06/11/18 20:24 Dose: 50 mg Multivitamins/Minerals (Therapeutic-M Tab) 1 tab PO DAILY KEN Last Admin: 05/21/18 10:27 Dose: 1 tab Pantoprazole Sodium (Protonix Susp) 40 mg PEG DAILY KEN Last Admin: 06/11/18 12:38 Dose: 40 mg Senna/Docusate Sodium (Senokot S 50 Mg-8.6 Mg) 1 tab PO HS KEN Last Admin: 05/20/18 21:29 Dose: 1 tab Tamsulosin HCl (Flomax) 0.4 mg PO QPM KEN Last Admin: 05/20/18 17:19 Dose: 0.4 mg Vitamin A (Vitamin A & D Oint Ud Foilpak) 1 ea TOP BID KEN Last Admin: 06/11/18 16:38 Dose: 1 ea - Labs Labs: 06/12/18 04:30 06/12/18 04:30 PT 14.4 Seconds (9.8-13.1) H 06/10/18 04:50 INR 1.3 06/10/18 04:50 APTT 32.4 Seconds (25.6-37.1) 06/10/18 04:50 - Additional Findings Additional findings: - Constitutional Appears: Cachectic, Chronically Ill - Head Exam Head Exam: ATRAUMATIC, NORMOCEPHALIC - Eye Exam Eye Exam: EOMI, Normal appearance Pupil Exam: PERRL - ENT Exam ENT Exam: Mucous Membranes Dry Additional comments: s/p tracheostomy - Respiratory Exam Additional comments: PSV 40%/5/5 - Cardiovascular Exam Cardiovascular Exam: REGULAR RHYTHM - GI/Abdominal Exam GI & Abdominal Exam: Soft, Normal Bowel Sounds. absent: Tenderness Additional comments: s/p PEG tube - 20 fr 1.5 cm from skin - Extremities Exam Additional comments: bilateral heel boots - Neurological Exam Neurological Exam: Altered - Psychiatric Exam Psychiatric exam: Flat Affect - Skin Skin Exam: Dry, Warm Assessment and Plan - Assessment and Plan (Free Text) Assessment: 82 M with inability to maintain airway, prolonged intubation and malnutrition s/p tracheostomy and PEG Tube placement POD#2 Plan: Wean from vent - trach collar trial today tube feeds at goal continue IV Abx Positioning and offloading heel boots Medical Management as per ICU Discussed with Dr. Neela Whaley PGY2
[2018-06-12] MEDS: Vitamins A & D Oint UD Foilpak TOP SCH ×2 (08:18→17:31)
[2018-06-12] MEDS: Enoxaparin 40 mg Syringe SC SCH (08:18)
[2018-06-12] MEDS: Pantoprazole 40 mg Susp UD PEG SCH (08:18)
[2018-06-12] MEDS: Fluconazole IV 100mg/50 ml NS 50 ML IVPB SCH (08:19)
--- NOTE | 2018-06-12 08:21 | RAD ---
Date of service: 06/12/2018 HISTORY: pt is on ventilator COMPARISON: Yesterday FINDINGS: LUNGS: There is persistent infiltrate in density in the right upper lobe and right mid lung field with lesser degree seen in the right lower lung field. Trachea is midline with tracheostomy tube stable in position. No new left lung infiltrate is seen. PLEURA: No new effusion. No pneumothorax. CARDIOVASCULAR: Aortic calcification noted. Heart size is unchanged. Stable vasculature OSSEOUS STRUCTURES: No interval change. VISUALIZED UPPER ABDOMEN: Normal. OTHER FINDINGS: None. IMPRESSION: Stable right upper lobe and right midlung field infiltrates.
[2018-06-12] MEDS: Acetylcysteine 10% 4 ML IH SCH ×3 (08:55→23:39)
[2018-06-12] MEDS: Ipratropium 0.02% Inhal Soln (0.5 mg/2.5 ml) UD IH SCH ×3 (08:55→23:39)
--- NOTE | 2018-06-12 10:48 | CP.CCUPN ---
CCU Subjective - Physician Review Events Since Last Encounter (Free Text): 06/12/18 10:46 responsive to external stimuli, does not follow all commands. CCU Objective - Vital Signs / Intake & Output Vital Signs (Last 4 hours): Vital Signs Temp Pulse Resp BP Pulse Ox 06/12/18 08:18 75 153/83 H 06/12/18 08:00 98.9 F 74 23 153/83 H 98 Intake and Output (Last 8hrs): Intake & Output 06/11/18 06/12/18 06/12/18 22:59 06:59 14:59 Intake Total 1050 910 140 Output Total 700 700 Balance 350 210 140 Weight 130 lb Intake: Intake, Piggyback 100 Tube Feeding 550 560 140 Free Water Flush 500 250 Output: Urine 700 700 Urethral (Flowers) 700 700 Other: # Bowel Movements 1 - Physical Exam Head: Positive for: Atraumatic, Normocephalic Pupils: Positive for: PERRL Extroacular Muscles: Positive for: EOMI Conjunctiva: Positive for: Normal. Negative for: Injected, Icteric Mouth: Positive for: Moist Mucous Membranes Neck: Positive for: Normal Range of Motion, Trachea Midline Respiratory/Chest: Positive for: Good Air Exchange, Rales, Rhonchi. Negative for: Respiratory Distress, Accessory Muscle Use, Wheezes Cardiovascular: Positive for: Regular Rate and Rhythm, Normal S1, S2. Negative for: Murmurs Abdomen: Positive for: Normal Bowel Sounds. Negative for: Tenderness, Distention Neurological: Positive for: Other (opens eyes occasionally) - Medications Active Medications: Active Medications Generic Name Dose Route Start Last Admin Trade Name Freq PRN Reason Stop Dose Admin Acetaminophen 650 mg 06/10/18 23:39 Tylenol 650 Mg Supp CO Q4 PRN Fever >100.4 F Acetaminophen 650 mg 06/11/18 16:16 06/11/18 20:23 Tylenol 650mg/20.3ml Solution Ud PO 650 mg Q4 PRN Administration for temp 100.4 and above Acetylcysteine 2 ml 05/17/18 16:00 06/12/18 08:55 Mucomyst 10% 4ml IH 2 ml RQ8 KEN Administration Alendronate Sodium 70 mg 05/21/18 09:00 05/21/18 10:29 Fosamax PO 70 mg FR KEN Administration Artificial Tears 2 drop 05/17/18 22:00 06/12/18 10:35 Artificial Tears OU 2 drop Q6 KEN Administration Calcium Carbonate 500 mg 05/17/18 17:00 05/21/18 10:26 Oscal PO 500 mg BID KEN Administration Cholecalciferol 1,000 intlu 05/17/18 17:00 05/21/18 10:27 Vitamin D PO 1,000 intlu BID KEN Administration Dextrose 0 ml 06/11/18 12:35 Dextrose 50% Inj IV STAT PRN Hypoglycemia Protocol Protocol Dextrose 0 gm 06/11/18 12:35 Glutose 15 PO ONCE PRN Hypoglycemia Protocol Protocol Donepezil HCl 5 mg 05/17/18 22:00 05/20/18 21:28 Aricept PO 5 mg HS KEN Administration Enoxaparin Sodium 40 mg 06/07/18 11:30 06/12/18 08:18 Lovenox SC 40 mg DAILY KEN Administration Protocol Glucagon 0 mg 06/11/18 12:35 Glucagen Diagnostic Kit IM STAT PRN Hypoglycemia Protocol Protocol Fluconazole 50 mls @ 50 mls/hr 06/08/18 09:00 06/12/18 08:19 Diflucan Iv 100 Mg/50 Ml Ns IVPB 50 mls/hr DAILY KEN Administration Protocol Meropenem 1 gm/ Sodium 100 mls @ 100 mls/hr 06/11/18 17:00 06/12/18 01:30 Chloride IVPB 100 mls/hr Q8 KEN Administration Protocol Insulin Human Lispro 0 units 06/11/18 12:45 06/12/18 10:37 Humalog SC 2 units Q6H KEN Administration Protocol Ipratropium [place] 0.5 mg 06/08/18 00:00 06/12/18 08:55 Atrovent IH 0.5 mg RQ8 KEN Administration Memantine 5 mg 05/17/18 21:00 05/21/18 10:25 Namenda PO 5 mg Q12 KEN Administration Multivitamins/Minerals 1 tab 05/18/18 09:00 05/21/18 10:27 Therapeutic-M Tab PO 1 tab DAILY KEN Administration Pantoprazole Sodium 40 mg 06/11/18 10:43 06/12/18 08:18 Protonix Susp PEG 40 mg DAILY KEN Administration Senna/Docusate Sodium 1 tab 05/17/18 22:00 05/20/18 21:29 Senokot S 50 Mg-8.6 Mg PO 1 tab HS KEN Administration Tamsulosin HCl 0.4 mg 05/17/18 18:00 05/20/18 17:19 Flomax PO 0.4 mg QPM KEN Administration Vitamin A 1 ea 05/16/18 17:45 06/12/18 08:18 Vitamin A & D Oint Ud Foilpak TOP 1 ea BID KEN Administration - Patient Studies Lab Studies: Lab Studies 06/12/18 06/12/18 06/11/18 Range/Units 04:30 04:30 11:09 WBC 8.5 (4.8-10.8) K/uL RBC 2.98 L (4.40-5.90) Mil/uL Hgb 8.1 L (12.0-18.0) g/dL Hct 25.0 L (35.0-51.0) % MCV 83.9 (80.0-94.0) fl MCH 27.1 (27.0-31.0) pg MCHC 32.3 L (33.0-37.0) g/dL RDW 18.0 H (11.5-14.5) % Plt Count 286 (130-400) K/uL MPV 9.0 (7.2-11.7) fl Neut % (Auto) 78.5 H (50.0-75.0) % Lymph % (Auto) 10.1 L (20.0-40.0) % Garvin % (Auto) 9.6 (0.0-10.0) % Eos % (Auto) 1.5 (0.0-4.0) % Baso % (Auto) 0.3 (0.0-2.0) % Neut # (Auto) 6.6 (1.8-7.0) K/uL Lymph # (Auto) 0.9 L (1.0-4.3) K/uL Garvin # (Auto) 0.8 (0.0-0.8) K/uL Eos # (Auto) 0.1 (0.0-0.7) K/uL Baso # (Auto) 0.0 (0.0-0.2) K/uL Sodium 143 (132-148) mmol/l Potassium 4.0 (3.6-5.0) MMOL/L Chloride 105 (98-107) mmol/L Carbon Dioxide 32 H (22-30) mmol/L Anion Gap 10 (10-20) BUN 28 H (9-20) mg/dl Creatinine 0.6 L (0.8-1.5) mg/dl Est GFR ( Amer) > 60 Est GFR (Non-Af Amer) > 60 POC Glucose (mg/dL) 97 (65-110) mg/dL Random Glucose 201 H (75-110) mg/dL Calcium 8.2 L (8.4-10.2) mg/dL Phosphorus 2.8 (2.5-4.5) mg/dl Magnesium 2.2 (1.6-2.3) MG/DL Laboratory Results - last 24 hr 06/11/18 06/12/18 06/12/18 11:09 04:30 04:30 WBC 8.5 RBC 2.98 L Hgb 8.1 L Hct 25.0 L MCV 83.9 MCH 27.1 MCHC 32.3 L RDW 18.0 H Plt Count 286 MPV 9.0 Neut % (Auto) 78.5 H Lymph % (Auto) 10.1 L Garvin % (Auto) 9.6 Eos % (Auto) 1.5 Baso % (Auto) 0.3 Neut # (Auto) 6.6 Lymph # (Auto) 0.9 L Garvin # (Auto) 0.8 Eos # (Auto) 0.1 Baso # (Auto) 0.0 Sodium 143 Potassium 4.0 Chloride 105 Carbon Dioxide 32 H Anion Gap 10 BUN 28 H Creatinine 0.6 L Est GFR ( Amer) > 60 Est GFR (Non-Af Amer) > 60 POC Glucose (mg/dL) 97 Random Glucose 201 H Calcium 8.2 L Phosphorus 2.8 Magnesium 2.2 Radiology Impressions: Radiology Impressions Abdomen X-Ray 06/10/18 09:45 IMPRESSION: Satisfactory position of PEG tube confirmed to be within the stomach. Chest X-Ray 06/12/18 04:25 IMPRESSION: Stable right upper lobe and right midlung field infiltrates. Fingerstick Blood Sugar Results: 192 Review of Systems - Review of Systems Systems not reviewed;Unavailable: Altered Mental Status Critical Care Progress Note - Nutrition Nutrition: Nutrition Category Date Time Status NPO Diet [DIET] Diets 06/09/18 Dinner Active Assessment/Plan (1) Acute respiratory failure with hypoxia Assessment and plan: 81yo M. PMHx HTN, DM type 2, Dementia. p/w severe sepsis, acute respiratory failure secondary to multilobar pneumonia. patient is now s/p trach/PEG. Neuro: moves spontaneously, does not respond to verbal commands, no sedation for most of his hospital course Pulm: acute respiratory failure, now trach'd on vent. Weaning trials daily, low probability of success given severe dementia. CV: hemodynamically stable. HTN, lopressor 50mg q12h. Hem: no acute issues Renal: urine output wnl, will monitor Endo: DM type 2, SISS for coverage GI: Glucerna@70, free water@150ml q4h. ID: fungal pneumonia improving on Fluconazole. DVT proph - lovenox GI proph - protonix flowers for strict I/O's during acute illness Code status - DNR Patient to be evaluated for transfer to [facility] care facility. Critical Care time spent 35 minutes Multi-disciplinary rounds were performed with house staff, nursing, speech therapy, respiratory therapy, pharmacy and nutrition with integrated input from the primary team/attending and other consulting services. The documented time is cumulative and includes review of patient data/exams/labs/chart review and examination of the patient on rounds and throughout the day; time is exclusive of any procedures or teaching time. Current Visit: Yes Status: Acute Priority: High Comment: Vent weaning in progress, Off seations Aggressive pulmonary toilet, chest PT, suctioning
--- NOTE | 2018-06-12 11:07 | CP.PCM.PN ---
Subjective - Date & Time of Evaluation Date of Evaluation: 06/12/18 Time of Evaluation: 11:06 - Subjective Subjective: ID Note- Pt. seen and examined today in ICU. no new events overnight. remains vented via trach. unresponsive. Objective - Vital Signs/Intake and Output Vital Signs (last 24 hours): Temp Pulse Resp BP Pulse Ox 98.9 F 75 23 153/83 H 98 06/12/18 08:00 06/12/18 08:18 06/12/18 08:00 06/12/18 08:18 06/12/18 08:00 Intake and Output: 06/12/18 06/12/18 06:59 18:59 Intake Total 1440 140 Output Total 700 Balance 740 140 - Medications Medications: Current Medications Acetaminophen (Tylenol 650 Mg Supp) 650 mg AR Q4 PRN PRN Reason: Fever >100.4 F Acetaminophen (Tylenol 650mg/20.3ml Solution Ud) 650 mg PO Q4 PRN PRN Reason: for temp 100.4 and above Last Admin: 06/11/18 20:23 Dose: 650 mg Acetylcysteine (Mucomyst 10% 4ml) 2 ml IH RQ8 [facility] Last Admin: 06/12/18 08:55 Dose: 2 ml Alendronate Sodium (Fosamax) 70 mg PO FR [facility] Last Admin: 05/21/18 10:29 Dose: 70 mg Artificial Tears (Artificial Tears) 2 drop OU Q6 [facility] Last Admin: 06/12/18 10:35 Dose: 2 drop Calcium Carbonate (Oscal) 500 mg PO BID [facility] Last Admin: 05/21/18 10:26 Dose: 500 mg Cholecalciferol (Vitamin D) 1,000 intlu PO BID [facility] Last Admin: 05/21/18 10:27 Dose: 1,000 intlu Dextrose (Dextrose 50% Inj) 0 ml IV STAT PRN; Protocol PRN Reason: Hypoglycemia Protocol Dextrose (Glutose 15) 0 gm PO ONCE PRN; Protocol PRN Reason: Hypoglycemia Protocol Donepezil HCl (Aricept) 5 mg PO HS [facility] Last Admin: 05/20/18 21:28 Dose: 5 mg Enoxaparin Sodium (Lovenox) 40 mg SC DAILY [facility]; Protocol Last Admin: 06/12/18 08:18 Dose: 40 mg Glucagon (Glucagen Diagnostic Kit) 0 mg IM STAT PRN; Protocol PRN Reason: Hypoglycemia Protocol Fluconazole (Diflucan Iv 100 Mg/50 Ml Ns) 50 mls @ 50 mls/hr IVPB DAILY [facility]; Protocol Last Admin: 06/12/18 08:19 Dose: 50 mls/hr Meropenem 1 gm/ Sodium (Chloride) 100 mls @ 100 mls/hr IVPB Q8 [facility]; Protocol Last Admin: 06/12/18 01:30 Dose: 100 mls/hr Insulin Human Lispro (Humalog) 0 units SC Q6H [facility]; Protocol Last Admin: 06/12/18 10:37 Dose: 2 units Ipratropium [place] (Atrovent) 0.5 mg IH RQ8 [facility] Last Admin: 06/12/18 08:55 Dose: 0.5 mg Memantine (Namenda) 5 mg PO Q12 [facility] Last Admin: 05/21/18 10:25 Dose: 5 mg Multivitamins/Minerals (Therapeutic-M Tab) 1 tab PO DAILY [facility] Last Admin: 05/21/18 10:27 Dose: 1 tab Pantoprazole Sodium (Protonix Susp) 40 mg PEG DAILY [facility] Last Admin: 06/12/18 08:18 Dose: 40 mg Senna/Docusate Sodium (Senokot S 50 Mg-8.6 Mg) 1 tab PO HS [facility] Last Admin: 05/20/18 21:29 Dose: 1 tab Tamsulosin HCl (Flomax) 0.4 mg PO QPM [facility] Last Admin: 05/20/18 17:19 Dose: 0.4 mg Vitamin A (Vitamin A & D Oint Ud Foilpak) 1 ea TOP BID [facility] Last Admin: 06/12/18 08:18 Dose: 1 ea - Labs Labs: - Additional Findings Additional findings: - Constitutional Appears: Chronically Ill - ENT Exam Additional comments: trached and on the vent - Respiratory Exam Additional comments: breath sounds heard b/l is on the vent - Cardiovascular Exam Cardiovascular Exam: Tachycardia, +S1, +S2 - GI/Abdominal Exam GI & Abdominal Exam: Soft, Normal Bowel Sounds Additional comments: ND, NT - Extremities Exam Extremities Exam: Normal Inspection - Neurological Exam Additional comments: unresponsive Laboratory Results - last 72 hr 06/09/18 06/09/18 06/09/18 05:47 11:03 13:40 WBC RBC Hgb Hct MCV MCH MCHC RDW Plt Count MPV Neut % (Auto) Lymph % (Auto) Bremer % (Auto) Eos % (Auto) Baso % (Auto) Neut # (Auto) Lymph # (Auto) Bremer # (Auto) Eos # (Auto) Baso # (Auto) Neutrophils % (Manual) Lymphocytes % (Manual) Monocytes % (Manual) Eosinophils % (Manual) Platelet Estimate Hypochromasia (manual) Anisocytosis (manual) Ovalocytes PT 14.2 H INR 1.3 APTT 32.8 pCO2 pO2 HCO3 ABG pH ABG Total CO2 ABG O2 Saturation ABG O2 Content ABG Base Excess ABG Hemoglobin ABG Carboxyhemoglobin POC ABG HHb (Measured) ABG Methemoglobin ABG O2 Capacity Forrest Test A-a O2 Difference Hgb O2 Saturation Vent Mode Mechanical Rate FiO2 Tidal Volume PEEP Pressure Support Sodium Potassium Chloride Carbon Dioxide Anion Gap BUN Creatinine Est GFR ( Amer) Est GFR (Non-Af Amer) POC Glucose (mg/dL) 152 H 153 H Random Glucose Calcium Phosphorus Magnesium Total Bilirubin AST ALT Alkaline Phosphatase Total Protein Albumin Globulin Albumin/Globulin Ratio Blood Type Blood Type Confirm Antibody Screen BBK History Checked 06/09/18 06/09/18 06/10/18 16:26 20:44 04:38 WBC RBC Hgb Hct MCV MCH MCHC RDW Plt Count MPV Neut % (Auto) Lymph % (Auto) Bremer % (Auto) Eos % (Auto) Baso % (Auto) Neut # (Auto) Lymph # (Auto) Bre[place] # (Auto) Eos # (Auto) Baso # (Auto) Neutrophils % (Manual) Lymphocytes % (Manual) Monocytes % (Manual) Eosinophils % (Manual) Platelet Estimate Hypochromasia (manual) Anisocytosis (manual) Ovalocytes PT INR APTT pCO2 40 pO2 74 L HCO3 32.7 H ABG pH 7.53 H ABG Total CO2 34.6 H ABG O2 Saturation 99.4 H ABG O2 Content 11.6 L ABG Base Excess 9.9 H ABG Hemoglobin 8.5 L ABG Carboxyhemoglobin 2.1 H POC ABG HHb (Measured) 0.6 ABG Methemoglobin 1.2 ABG O2 Capacity 11.7 L Forrest Test Yes A-a O2 Difference 161.0 Hgb O2 Saturation 96.1 Vent Mode Cpap Mechanical Rate 0 FiO2 40.0 Tidal Volume 0 PEEP 5 Pressure Support 5 Sodium Potassium Chloride Carbon Dioxide Anion Gap BUN Creatinine Est GFR ( Amer) Est GFR (Non-Af Amer) POC Glucose (mg/dL) 167 H 167 H Random Glucose Calcium Phosphorus Magnesium Total Bilirubin AST ALT Alkaline Phosphatase Total Protein Albumin Globulin Albumin/Globulin Ratio Blood Type Blood Type Confirm Antibody Screen BBK History Checked 06/10/18 06/10/18 06/10/18 04:45 04:50 04:50 WBC 8.4 RBC 3.19 L Hgb 8.7 L Hct 26.7 L MCV 83.5 MCH 27.2 MCHC 32.5 L RDW 17.4 H Plt Count 327 MPV 9.0 Neut % (Auto) 78.7 H Lymph % (Auto) 9.7 L Bremer % (Auto) 9.9 Eos % (Auto) 1.5 Baso % (Auto) 0.2 Neut # (Auto) 6.6 Lymph # (Auto) 0.8 L Bremer # (Auto) 0.8 Eos # (Auto) 0.1 Baso # (Auto) 0.0 Neutrophils % (Manual) 80 H Lymphocytes % (Manual) 10 L Monocytes % (Manual) 8 Eosinophils % (Manual) 2 Platelet Estimate Normal Hypochromasia (manual) Moderate Anisocytosis (manual) Slight Ovalocytes Slight PT 14.4 H INR 1.3 APTT 32.4 pCO2 pO2 HCO3 ABG pH ABG Total CO2 ABG O2 Saturation ABG O2 Content ABG Base Excess ABG Hemoglobin ABG Carboxyhemoglobin POC ABG HHb (Measured) ABG Methemoglobin ABG O2 Capacity Forrest Test A-a O2 Difference Hgb O2 Saturation Vent Mode Mechanical Rate FiO2 Tidal Volume PEEP Pressure Support Sodium Potassium Chloride Carbon Dioxide Anion Gap BUN Creatinine Est GFR ( Amer) Est GFR (Non-Af Amer) POC Glucose (mg/dL) Random Glucose Calcium Phosphorus Magnesium Total Bilirubin AST ALT Alkaline Phosphatase Total Protein Albumin Globulin Albumin/Globulin Ratio Blood Type A NEGATIVE Blood Type Confirm Antibody Screen Negative BBK History Checked No verified bt 06/10/18 06/10/18 06/10/18 04:50 05:52 07:10 WBC RBC Hgb Hct MCV MCH MCHC RDW Plt Count MPV Neut % (Auto) Lymph % (Auto) Bremer % (Auto) Eos % (Auto) Baso % (Auto) Neut # (Auto) Lymph # (Auto) Bremer # (Auto) Eos # (Auto) Baso # (Auto) Neutrophils % (Manual) Lymphocytes % (Manual) Monocytes % (Manual) Eosinophils % (Manual) Platelet Estimate Hypochromasia (manual) Anisocytosis (manual) Ovalocytes PT INR APTT pCO2 pO2 HCO3 ABG pH ABG Total CO2 ABG O2 Saturation ABG O2 Content ABG Base Excess ABG Hemoglobin ABG Carboxyhemoglobin POC ABG HHb (Measured) ABG Methemoglobin ABG O2 Capacity Forrest Test A-a O2 Difference Hgb O2 Saturation Vent Mode Mechanical Rate FiO2 Tidal Volume PEEP Pressure Support Sodium 142 Potassium 4.0 Chloride 103 Carbon Dioxide 32 H Anion Gap 11 BUN 27 H Creatinine 0.6 L Est GFR ( Amer) > 60 Est GFR (Non-Af Amer) > 60 POC Glucose (mg/dL) 119 H Random Glucose 121 H Calcium 8.5 Phosphorus 3.3 Magnesium 2.2 Total Bilirubin 0.7 AST 34 ALT 28 Alkaline Phosphatase 97 Total Protein 7.1 Albumin 3.0 L Globulin 4.1 H Albumin/Globulin Ratio 0.7 L Blood Type Blood Type Confirm A NEGATIVE Antibody Screen BBK History Checked 06/10/18 06/10/18 06/10/18 11:37 16:39 21:08 WBC RBC Hgb Hct MCV MCH MCHC RDW Plt Count MPV Neut % (Auto) Lymph % (Auto) Bremer % (Auto) Eos % (Auto) Baso % (Auto) Neut # (Auto) Lymph # (Auto) Bremer # (Auto) Eos # (Auto) Baso # (Auto) Neutrophils % (Manual) Lymphocytes % (Manual) Monocytes % (Manual) Eosinophils % (Manual) Platelet Estimate Hypochromasia (manual) Anisocytosis (manual) Ovalocytes PT INR APTT pCO2 pO2 HCO3 ABG pH ABG Total CO2 ABG O2 Saturation ABG O2 Content ABG Base Excess ABG Hemoglobin ABG Carboxyhemoglobin POC ABG HHb (Measured) ABG Methemoglobin ABG O2 Capacity Forrest Test A-a O2 Difference Hgb O2 Saturation Vent Mode Mechanical Rate FiO2 Tidal Volume PEEP Pressure Support Sodium Potassium Chloride Carbon Dioxide Anion Gap BUN Creatinine Est GFR ( Amer) Est GFR (Non-Af Amer) POC Glucose (mg/dL) 145 H 116 H 115 H Random Glucose Calcium Phosphorus Magnesium Total Bilirubin AST ALT Alkaline Phosphatase Total Protein Albumin Globulin Albumin/Globulin Ratio Blood Type Blood Type Confirm Antibody Screen BBK History Checked 06/11/18 06/11/1819 05:00 05:00 05:00 WBC 10.2 RBC 3.18 L Hgb 8.6 L Hct 26.4 L MCV 83.2 MCH 27.0 MCHC 32.5 L RDW 17.6 H Plt Count 317 MPV 9.0 Neut % (Auto) 81.4 H Lymph % (Auto) 8.6 L Bremer % (Auto) 9.6 Eos % (Auto) 0.2 Baso % (Auto) 0.2 Neut # (Auto) 8.3 H Lymph # (Auto) 0.9 L Bremer # (Auto) 1.0 H Eos # (Auto) 0.0 Baso # (Auto) 0.0 Neutrophils % (Manual) Lymphocytes % (Manual) Monocytes % (Manual) Eosinophils % (Manual) Platelet Estimate Hypochromasia (manual) Anisocytosis (manual) Ovalocytes PT INR APTT pCO2 35 pO2 64 L HCO3 32.2 H ABG pH 7.57 H ABG Total CO2 33.2 H ABG O2 Saturation 97.7 ABG O2 Content 11.2 L ABG Base Excess 9.4 H ABG Hemoglobin 8.4 L ABG Carboxyhemoglobin 2.4 H POC ABG HHb (Measured) 2.2 ABG Methemoglobin 0.7 ABG O2 Capacity 11.5 L Forrest Test Yes A-a O2 Difference 177.0 Hgb O2 Saturation 94.6 L Vent Mode A/c Mechanical Rate 18 FiO2 40.0 Tidal Volume 400 PEEP 5 Pressure Support Sodium 145 Potassium 4.0 Chloride 106 Carbon Dioxide 31 H Anion Gap 12 BUN 29 H Creatinine 0.7 L Est GFR ( Amer) > 60 Est GFR (Non-Af Amer) > 60 POC Glucose (mg/dL) Random Glucose 109 Calcium 8.3 L Phosphorus Magnesium Total Bilirubin AST ALT Alkaline Phosphatase Total Protein Albumin Globulin Albumin/Globulin Ratio Blood Type Blood Type Confirm Antibody Screen BBK History Checked 06/11/18 06/11/18 06/12/18 05:12 11:09 04:30 WBC 8.5 RBC 2.98 L Hgb 8.1 L Hct 25.0 L MCV 83.9 MCH 27.1 MCHC 32.3 L RDW 18.0 H Plt Count 286 MPV 9.0 Neut % (Auto) 78.5 H Lymph % (Auto) 10.1 L Bremer % (Auto) 9.6 Eos % (Auto) 1.5 Baso % (Auto) 0.3 Neut # (Auto) 6.6 Lymph # (Auto) 0.9 L [place] # (Auto) 0.8 Eos # (Auto) 0.1 Baso # (Auto) 0.0 Neutrophils % (Manual) Lymphocytes % (Manual) Monocytes % (Manual) Eosinophils % (Manual) Platelet Estimate Hypochromasia (manual) Anisocytosis (manual) Ovalocytes PT INR APTT pCO2 pO2 HCO3 ABG pH ABG Total CO2 ABG O2 Saturation ABG O2 Content ABG Base Excess ABG Hemoglobin ABG Carboxyhemoglobin POC ABG HHb (Measured) ABG Methemoglobin ABG O2 Capacity Forrest Test A-a O2 Difference Hgb O2 Saturation Vent Mode Mechanical Rate FiO2 Tidal Volume PEEP Pressure Support Sodium Potassium Chloride Carbon Dioxide Anion Gap BUN Creatinine Est GFR ( Amer) Est GFR (Non-Af Amer) POC Glucose (mg/dL) 109 97 Random Glucose Calcium Phosphorus Magnesium Total Bilirubin AST ALT Alkaline Phosphatase Total Protein Albumin Globulin Albumin/Globulin Ratio Blood Type Blood Type Confirm Antibody Screen BBK History Checked 06/12/18 04:30 WBC RBC Hgb Hct MCV MCH MCHC RDW Plt Count MPV Neut % (Auto) Lymph % (Auto) Bremer % (Auto) Eos % (Auto) Baso % (Auto) Neut # (Auto) Lymph # (Auto) [place] # (Auto) Eos # (Auto) Baso # (Auto) Neutrophils % (Manual) Lymphocytes % (Manual) Monocytes % (Manual) Eosinophils % (Manual) Platelet Estimate Hypochromasia (manual) Anisocytosis (manual) Ovalocytes PT INR APTT pCO2 pO2 HCO3 ABG pH ABG Total CO2 ABG O2 Saturation ABG O2 Content ABG Base Excess ABG Hemoglobin ABG Carboxyhemoglobin POC ABG HHb (Measured) ABG Methemoglobin ABG O2 Capacity Forrest Test A-a O2 Difference Hgb O2 Saturation Vent Mode Mechanical Rate FiO2 Tidal Volume PEEP Pressure Support Sodium 143 Potassium 4.0 Chloride 105 Carbon Dioxide 32 H Anion Gap 10 BUN 28 H Creatinine 0.6 L Est GFR ( Amer) > 60 Est GFR (Non-Af Amer) > 60 POC Glucose (mg/dL) Random Glucose 201 H Calcium 8.2 L Phosphorus 2.8 Magnesium 2.2 Total Bilirubin AST ALT Alkaline Phosphatase Total Protein Albumin Globulin Albumin/Globulin Ratio Blood Type Blood Type Confirm Antibody Screen BBK History Checked Microbiology 05/31/18 12:34 Blood-Venous Blood Culture - Final NO GROWTH AFTER 5 DAYS 05/31/18 12:34 Blood-Venous Gram Stain - Final TEST NOT PERFORMED 05/31/18 12:44 Blood-Venous Blood Culture - Final NO GROWTH AFTER 5 DAYS 05/31/18 12:44 Blood-Venous Gram Stain - Final TEST NOT PERFORMED 05/28/18 05:00 Bronchial Washings Bronchial Culture - Final Renee Albicans 05/27/18 21:00 Blood-Venous Blood Culture - Final NO GROWTH AFTER 5 DAYS 05/27/18 21:00 Blood-Venous Gram Stain - Final TEST NOT PERFORMED 05/27/18 21:05 Blood-Venous Blood Culture - Final NO GROWTH AFTER 5 DAYS 05/27/18 21:05 Blood-Venous Gram Stain - Final TEST NOT PERFORMED 05/26/18 14:13 Blood-Venous Blood Culture - Final NO GROWTH AFTER 5 DAYS 05/26/18 14:13 Blood-Venous Gram Stain - Final TEST NOT PERFORMED 05/27/18 21:00 Trachasp Gram Stain - Final 05/27/18 21:00 Trachasp Sputum Culture - Final Yeast Species 05/24/18 14:15 Blood-Venous Blood Culture - Final NO GROWTH AFTER 5 DAYS 05/24/18 14:15 Blood-Venous Gram Stain - Final TEST NOT PERFORMED 05/24/18 14:00 Blood-Venous Blood Culture - Final NO GROWTH AFTER 5 DAYS 05/24/18 14:00 Blood-Venous Gram Stain - Final TEST NOT PERFORMED 05/27/18 21:00 Urine,Catheterized Urine Culture - Final No Growth (<1,000 CFU/ML) 05/24/18 15:00 Sputum Gram Stain - Final 05/24/18 15:00 Sputum Sputum Culture - Final Yeast Species 05/24/18 09:35 Urine,Catheterized Urine Culture - Final No Growth (<1,000 CFU/ML) 05/20/18 15:31 Blood-Venous Blood Culture - Final NO GROWTH AFTER 5 DAYS 05/20/18 15:31 Blood-Venous Gram Stain - Final TEST NOT PERFORMED 05/20/18 15:42 Blood-Venous Blood Culture - Final NO GROWTH AFTER 5 DAYS 05/20/18 15:42 Blood-Venous Gram Stain - Final TEST NOT PERFORMED 05/24/18 09:35 Naris MRSA Culture (Admit) - Final MRSA NOT DETECTED 05/21/18 16:57 Sputum Induced Gram Stain - Final 05/21/18 16:57 Sputum Induced Sputum Culture - Final Yeast Species 05/12/18 07:50 Blood Blood Culture - Final NO GROWTH AFTER 5 DAYS 05/12/18 07:50 Blood Gram Stain - Final TEST NOT PERFORMED 05/12/18 Unknown Blood Blood Culture - Final NO GROWTH AFTER 5 DAYS 05/12/18 Unknown Blood Gram Stain - Final TEST NOT PERFORMED 05/12/18 08:40 Urine,Catheterized Urine Culture - Final Escherichia Coli Accession No. : [id number] Patient Name / ID : TANNER BOWIE / [id number] Exam Date : 06/12/2018 04:22:02 ( Approved ) Study Comment : Sex / Age : M / [id number] Creator : You Rodriguez MD Dictator : You Rodriguez MD Bullet Maker : Finish Repairer : You Rodriguez MD Approver2 : Report Date : 06/12/2018 08:16:01 My Comment : Date of service: 06/12/2018 HISTORY: pt is on ventilator COMPARISON: Yesterday FINDINGS: LUNGS: There is persistent infiltrate in density in the right upper lobe and right mid lung field with lesser degree seen in the right lower lung field. Trachea is midline with tracheostomy tube stable in position. No new left lung infiltrate is seen. PLEURA: No new effusion. No pneumothorax. CARDIOVASCULAR: Aortic calcification noted. Heart size is unchanged. Stable vasculature OSSEOUS STRUCTURES: No interval change. VISUALIZED UPPER ABDOMEN: Normal. OTHER FINDINGS: None. IMPRESSION: Stable right upper lobe and right midlung field infiltrates. Assessment and Plan (1) Sepsis syndrome Status: Acute (2) Fever Status: Resolved (3) Hypoxemia Status: Chronic (4) Aspiration pneumonia Status: Acute - Assessment and Plan (Free Text) Assessment: A/P- 82 year old [place] resident male with dementia, admitted with fever initially and had UTI and ? asp pneumonia and was treated with IV antibiotiocs and was fever free and normal wbc and doing ok but few days ago had aspiration pneumonia and hypoxemic and rapid a.fib and is s/p intubation and in ICU. s/p trach and peg. afebrile today normal wbc today, cxr- right side infiltrates but improved compared to before. admission UA- Pos LE, neg Nitrates admission urine cx- E.Coli pansensitive- treated for this already blood cx- neg x 5 sputum cx- yeast BAL cx- C.Albicans PLan- advise to continue with IV meropenem empiric coverage day #17. also advise to continue with IV fluconazole for yeast in sputum.day #16 advise 4 more days of IV fluconzole. completed 10 days of IV empiric vanco. check blood cx x 2 today. all labs and imaging and chart notes reviewed. critical care time spent 30 minutes.
--- NOTE | 2018-06-12 14:57 | CP.PCM.PN ---
Subjective - Date & Time of Evaluation Date of Evaluation: 06/12/18 Time of Evaluation: 12:20 - Subjective Subjective: F/U Respiratory Failure minimal response to tactil stimuli, Teacheostomy, Trach collar Objective - Vital Signs/Intake and Output Vital Signs (last 24 hours): Temp Pulse Resp BP Pulse Ox 99.5 F 73 22 129/69 96 06/12/18 12:00 06/12/18 14:00 06/12/18 14:00 06/12/18 14:00 06/12/18 14:00 Intake and Output: 06/12/18 06/12/18 06:59 18:59 Intake Total 1440 860 Output Total 700 Balance 740 860 - Medications Medications: Current Medications Acetaminophen (Tylenol 650 Mg Supp) 650 mg LA Q4 PRN PRN Reason: Fever >100.4 F Acetaminophen (Tylenol 650mg/20.3ml Solution Ud) 650 mg PO Q4 PRN PRN Reason: for temp 100.4 and above Last Admin: 06/11/18 20:23 Dose: 650 mg Acetylcysteine (Mucomyst 10% 4ml) 2 ml IH RQ8 [facility] Last Admin: 06/12/18 08:55 Dose: 2 ml Alendronate Sodium (Fosamax) 70 mg PO FR [facility] Last Admin: 05/21/18 10:29 Dose: 70 mg Artificial Tears (Artificial Tears) 2 drop OU Q6 [facility] Last Admin: 06/12/18 10:35 Dose: 2 drop Calcium Carbonate (Oscal) 500 mg PO BID [facility] Last Admin: 05/21/18 10:26 Dose: 500 mg Cholecalciferol (Vitamin D) 1,000 intlu PO BID [facility] Last Admin: 05/21/18 10:27 Dose: 1,000 intlu Dextrose (Dextrose 50% Inj) 0 ml IV STAT PRN; Protocol PRN Reason: Hypoglycemia Protocol Dextrose (Glutose 15) 0 gm PO ONCE PRN; Protocol PRN Reason: Hypoglycemia Protocol Donepezil HCl (Aricept) 5 mg PO HS [facility] Last Admin: 05/20/18 21:28 Dose: 5 mg Glucagon (Glucagen Diagnostic Kit) 0 mg IM STAT PRN; Protocol PRN Reason: Hypoglycemia Protocol Fluconazole (Diflucan Iv 100 Mg/50 Ml Ns) 50 mls @ 50 mls/hr IVPB DAILY [facility]; Protocol Last Admin: 06/12/18 08:19 Dose: 50 mls/hr Meropenem 1 gm/ Sodium (Chloride) 100 mls @ 100 mls/hr IVPB Q8 [facility]; Protocol Last Admin: 06/12/18 09:00 Dose: 100 mls/hr Insulin Human Lispro (Humalog) 0 units SC Q6H [facility]; Protocol Last Admin: 06/12/18 12:12 Dose: 2 units Ipratropium [place] (Atrovent) 0.5 mg IH RQ8 [facility] Last Admin: 06/12/18 08:55 Dose: 0.5 mg Memantine (Namenda) 5 mg PO Q12 [facility] Last Admin: 05/21/18 10:25 Dose: 5 mg Multivitamins/Minerals (Therapeutic-M Tab) 1 tab PO DAILY [facility] Last Admin: 05/21/18 10:27 Dose: 1 tab Pantoprazole Sodium (Protonix Susp) 40 mg PEG DAILY [facility] Last Admin: 06/12/18 08:18 Dose: 40 mg Senna/Docusate Sodium (Senokot S 50 Mg-8.6 Mg) 1 tab PO HS [facility] Last Admin: 05/20/18 21:29 Dose: 1 tab Tamsulosin HCl (Flomax) 0.4 mg PO QPM [facility] Last Admin: 05/20/18 17:19 Dose: 0.4 mg Vitamin A (Vitamin A & D Oint Ud Foilpak) 1 ea TOP BID [facility] Last Admin: 06/12/18 08:18 Dose: 1 ea - Labs Labs: 06/12/18 04:30 06/12/18 04:30 PT 14.4 Seconds (9.8-13.1) H 06/10/18 04:50 INR 1.3 06/10/18 04:50 APTT 32.4 Seconds (25.6-37.1) 06/10/18 04:50 - Constitutional Appears: Chronically Ill - Head Exam Head Exam: NORMAL INSPECTION - Eye Exam Eye Exam: PERRL - ENT Exam ENT Exam: Normal Exam - Neck Exam Additional comments: Tracheostomy, Trach Collar - Respiratory Exam Respiratory Exam: Decreased Breath Sounds (at bases), Rhonchi (scattered) - Cardiovascular Exam Cardiovascular Exam: REGULAR RHYTHM - GI/Abdominal Exam GI & Abdominal Exam: Soft, Normal Bowel Sounds Additional comments: Peg tube in place. - Extremities Exam Additional comments: Edema - Back Exam Additional comments: Sacral ulcer - Neurological Exam Additional comments: Lethargic, minimal response to tactile stimuli, occasionally moves BUE - Skin Skin Exam: Warm Assessment and Plan (1) Aspiration pneumonia Status: Acute (2) E. coli UTI Status: Acute (3) Fever Status: Resolved (4) Sepsis syndrome Status: Acute (5) Hypoxemia Status: Chronic (6) Dementia Status: Chronic (7) HTN (hypertension) Status: Chronic (8) DMII (diabetes mellitus, type 2) Status: Chronic (9) Status post tracheostomy Status: Acute (10) S/P percutaneous endoscopic gastrostomy (PEG) tube placement Status: Acute - Assessment and Plan (Free Text) Plan: CXR stable RUL, RML infiltrate, continue Atrovent, Mucomyst,Merren, Diflucan, and rest of Tx Critical care time: 32 min.
[2018-06-13] MEDS: Meropenem 1 GM in Sodium Chloride 0.9% 100 ML IVPB SCH ×3 (00:13→16:29)
[2018-06-13] MEDS: Artificial Tears Opht Soln OU SCH ×4 (04:30→22:44)
[2018-06-13 05:05] LABS: ABG ALLEN TEST YES; ARTERIAL BLOOD GAS HCO3 31.5 mmol/L (21-28); ARTERIAL BLOOD GAS HEMOGLOBIN 8.3 g/dL (11.7-17.4); ARTERIAL BLOOD GAS O2 CAPACITY 11.5 mL/dL (16-24); ARTERIAL BLOOD GAS O2 CONTENT 11.6 ML/dL (15-23); ARTERIAL BLOOD GAS O2 SAT 100.7 % (95-98); ARTERIAL BLOOD GAS PCO2 38 mm/Hg (35-45); ARTERIAL BLOOD GAS PH 7.53 (7.35-7.45); ARTERIAL BLOOD GAS PO2 103 mm/Hg (80-100)
[2018-06-13 06:44] LABS: HEMOGLOBIN 8.3 g/dL (12.0-18.0); MEAN CELL VOLUME 83.2 fl (80.0-94.0); MEAN CORPUSCULAR HEMOGLOBIN 27.2 pg (27.0-31.0); MEAN CORPUSCULAR HGB CONC 32.7 g/dL (33.0-37.0); RBC 3.06 Mil/uL (4.40-5.90); RED CELL DISTRIBUTION WIDTH 17.8 % (11.5-14.5); WHITE BLOOD COUNT 7.9 K/uL (4.8-10.8)
[2018-06-13] MEDS: Insulin Lispro (humaLOG) 100 Units/ml Inj SC SCH ×3 (06:48→18:40)
[2018-06-13 07:00] LABS: BLOOD UREA NITROGEN 27 mg/dl (9-20); CALCIUM 8.3 mg/dL (8.4-10.2); GFR NON-AFRICAN AMERICAN > 60
[2018-06-13] MEDS: Acetylcysteine 10% 4 ML IH SCH ×3 (07:23→23:09)
[2018-06-13] MEDS: Ipratropium 0.02% Inhal Soln (0.5 mg/2.5 ml) UD IH SCH ×3 (07:23→23:09)
[2018-06-13] MEDS: Vitamins A & D Oint UD Foilpak TOP SCH ×2 (09:08→16:29)
[2018-06-13] MEDS: Fluconazole IV 100mg/50 ml NS 50 ML IVPB SCH (09:09)
[2018-06-13] MEDS: Pantoprazole 40 mg Susp UD PEG SCH (09:09)
--- NOTE | 2018-06-13 13:38 | CP.PCM.PN ---
Subjective - Date & Time of Evaluation Date of Evaluation: 06/13/18 Time of Evaluation: 13:37 - Subjective Subjective: ID Note- pt. is on TC 40 % as per nurse. remains unresponsive. Objective - Vital Signs/Intake and Output Vital Signs (last 24 hours): Temp Pulse Resp BP Pulse Ox 98.4 F 64 16 128/66 98 06/13/18 12:00 06/13/18 12:00 06/13/18 12:00 06/13/18 12:00 06/13/18 12:00 Intake and Output: 06/13/18 06/13/18 06:59 18:59 Intake Total 1462 430 Output Total 925 Balance 537 430 - Medications Medications: Current Medications Acetaminophen (Tylenol 650 Mg Supp) 650 mg ID Q4 PRN PRN Reason: Fever >100.4 F Acetaminophen (Tylenol 650mg/20.3ml Solution Ud) 650 mg PO Q4 PRN PRN Reason: for temp 100.4 and above Last Admin: 06/11/18 20:23 Dose: 650 mg Acetylcysteine (Mucomyst 10% 4ml) 2 ml IH RQ8 [facility] Last Admin: 06/13/18 07:23 Dose: 2 ml Alendronate Sodium (Fosamax) 70 mg PO FR EKN Last Admin: 05/21/18 10:29 Dose: 70 mg Artificial Tears (Artificial Tears) 2 drop OU Q6 [facility] Last Admin: 06/13/18 09:08 Dose: 2 drop Calcium Carbonate (Oscal) 500 mg PO BID [facility] Last Admin: 05/21/18 10:26 Dose: 500 mg Cholecalciferol (Vitamin D) 1,000 intlu PO BID [facility] Last Admin: 05/21/18 10:27 Dose: 1,000 intlu Dextrose (Dextrose 50% Inj) 0 ml IV STAT PRN; Protocol PRN Reason: Hypoglycemia Protocol Dextrose (Glutose 15) 0 gm PO ONCE PRN; Protocol PRN Reason: Hypoglycemia Protocol Donepezil HCl (Aricept) 5 mg PO HS [facility] Last Admin: 05/20/18 21:28 Dose: 5 mg Glucagon (Glucagen Diagnostic Kit) 0 mg IM STAT PRN; Protocol PRN Reason: Hypoglycemia Protocol Fluconazole (Diflucan Iv 100 Mg/50 Ml Ns) 50 mls @ 50 mls/hr IVPB DAILY [facility]; Protocol Last Admin: 06/13/18 09:09 Dose: 50 mls/hr Meropenem 1 gm/ Sodium (Chloride) 100 mls @ 100 mls/hr IVPB Q8 [facility]; Protocol Last Admin: 06/13/18 09:56 Dose: 100 mls/hr Insulin Human Lispro (Humalog) 0 units SC Q6H [facility]; Protocol Last Admin: 06/13/18 11:59 Dose: 2 units Ipratropium [place] (Atrovent) 0.5 mg IH RQ8 [facility] Last Admin: 06/13/18 07:23 Dose: 0.5 mg Memantine (Namenda) 5 mg PO Q12 [facility] Last Admin: 05/21/18 10:25 Dose: 5 mg Multivitamins/Minerals (Therapeutic-M Tab) 1 tab PO DAILY KEN Last Admin: 05/21/18 10:27 Dose: 1 tab Pantoprazole Sodium (Protonix Susp) 40 mg PEG DAILY [facility] Last Admin: 06/13/18 09:09 Dose: 40 mg Senna/Docusate Sodium (Senokot S 50 Mg-8.6 Mg) 1 tab PO HS KEN Last Admin: 05/20/18 21:29 Dose: 1 tab Tamsulosin HCl (Flomax) 0.4 mg PO QPM [facility] Last Admin: 05/20/18 17:19 Dose: 0.4 mg Vitamin A (Vitamin A & D Oint Ud Foilpak) 1 ea TOP BID [facility] Last Admin: 06/13/18 09:08 Dose: 1 ea - Labs Labs: - Additional Findings Additional findings: - Constitutional Appears: Chronically Ill - ENT Exam Additional comments: trached and on TC now - Respiratory Exam Additional comments: breath sounds heard b/l is on the vent - Cardiovascular Exam Cardiovascular Exam: , +S1, +S2 RRR - GI/Abdominal Exam GI & Abdominal Exam: Soft, Normal Bowel Sounds Additional comments: ND, NT - Extremities Exam Extremities Exam: Normal Inspection - Neurological Exam Additional comments: unresponsive Laboratory Results - last 72 hr 06/10/18 06/10/18 06/10/18 11:37 16:39 21:08 WBC RBC Hgb Hct MCV MCH MCHC RDW Plt Count MPV Neut % (Auto) Lymph % (Auto) [place] % (Auto) Eos % (Auto) Baso % (Auto) Neut # (Auto) Lymph # (Auto) [place] # (Auto) Eos # (Auto) Baso # (Auto) pCO2 pO2 HCO3 ABG pH ABG Total CO2 ABG O2 Saturation ABG O2 Content ABG Base Excess ABG Hemoglobin ABG Carboxyhemoglobin POC ABG HHb (Measured) ABG Methemoglobin ABG O2 Capacity [place] Test A-a O2 Difference Hgb O2 Saturation Vent Mode Mechanical Rate FiO2 Tidal Volume PEEP Sodium Potassium Chloride Carbon Dioxide Anion Gap BUN Creatinine Est GFR ( Amer) Est GFR (Non-Af Amer) POC Glucose (mg/dL) 145 H 116 H 115 H Random Glucose Calcium Phosphorus Magnesium 06/11/18 06/11/18 06/11/18 05:00 05:00 05:00 WBC 10.2 RBC 3.18 L Hgb 8.6 L Hct 26.4 L MCV 83.2 MCH 27.0 MCHC 32.5 L RDW 17.6 H Plt Count 317 MPV 9.0 Neut % (Auto) 81.4 H Lymph % (Auto) 8.6 L [place] % (Auto) 9.6 Eos % (Auto) 0.2 Baso % (Auto) 0.2 Neut # (Auto) 8.3 H Lymph # (Auto) 0.9 L [place] # (Auto) 1.0 H Eos # (Auto) 0.0 Baso # (Auto) 0.0 pCO2 35 pO2 64 L HCO3 32.2 H ABG pH 7.57 H ABG Total CO2 33.2 H ABG O2 Saturation 97.7 ABG O2 Content 11.2 L ABG Base Excess 9.4 H ABG Hemoglobin 8.4 L ABG Carboxyhemoglobin 2.4 H POC ABG HHb (Measured) 2.2 ABG Methemoglobin 0.7 ABG O2 Capacity 11.5 L [place] Test Yes A-a O2 Difference 177.0 Hgb O2 Saturation 94.6 L Vent Mode A/c Mechanical Rate 18 FiO2 40.0 Tidal Volume 400 PEEP 5 Sodium 145 Potassium 4.0 Chloride 106 Carbon Dioxide 31 H Anion Gap 12 BUN 29 H Creatinine 0.7 L Est GFR ( Amer) > 60 Est GFR (Non-Af Amer) > 60 POC Glucose (mg/dL) Random Glucose 109 Calcium 8.3 L Phosphorus Magnesium 06/11/18 06/11/18 06/11/18 05:12 11:09 16:21 WBC RBC Hgb Hct MCV MCH MCHC RDW Plt Count MPV Neut % (Auto) Lymph % (Auto) [place] % (Auto) Eos % (Auto) Baso % (Auto) Neut # (Auto) Lymph # (Auto) [place] # (Auto) Eos # (Auto) Baso # (Auto) pCO2 pO2 HCO3 ABG pH ABG Total CO2 ABG O2 Saturation ABG O2 Content ABG Base Excess ABG Hemoglobin ABG Carboxyhemoglobin POC ABG HHb (Measured) ABG Methemoglobin ABG O2 Capacity [place] Test A-a O2 Difference Hgb O2 Saturation Vent Mode Mechanical Rate FiO2 Tidal Volume PEEP Sodium Potassium Chloride Carbon Dioxide Anion Gap BUN Creatinine Est GFR ( Amer) Est GFR (Non-Af Amer) POC Glucose (mg/dL) 109 97 114 H Random Glucose Calcium Phosphorus Magnesium 06/11/18 06/12/18 06/12/18 20:18 02:26 04:30 WBC 8.5 RBC 2.98 L Hgb 8.1 L Hct 25.0 L MCV 83.9 MCH 27.1 MCHC 32.3 L RDW 18.0 H Plt Count 286 MPV 9.0 Neut % (Auto) 78.5 H Lymph % (Auto) 10.1 L [place] % (Auto) 9.6 Eos % (Auto) 1.5 Baso % (Auto) 0.3 Neut # (Auto) 6.6 Lymph # (Auto) 0.9 L [place] # (Auto) 0.8 Eos # (Auto) 0.1 Baso # (Auto) 0.0 pCO2 pO2 HCO3 ABG pH ABG Total CO2 ABG O2 Saturation ABG O2 Content ABG Base Excess ABG Hemoglobin ABG Carboxyhemoglobin POC ABG HHb (Measured) ABG Methemoglobin ABG O2 Capacity [place] Test A-a O2 Difference Hgb O2 Saturation Vent Mode Mechanical Rate FiO2 Tidal Volume PEEP Sodium Potassium Chloride Carbon Dioxide Anion Gap BUN Creatinine Est GFR ( Amer) Est GFR (Non-Af Amer) POC Glucose (mg/dL) 161 H 186 H Random Glucose Calcium Phosphorus Magnesium 06/12/18 06/12/18 06/12/18 04:30 07:56 11:28 WBC RBC Hgb Hct MCV MCH MCHC RDW Plt Count MPV Neut % (Auto) Lymph % (Auto) [place] % (Auto) Eos % (Auto) Baso % (Auto) Neut # (Auto) Lymph # (Auto) [place] # (Auto) Eos # (Auto) Baso # (Auto) pCO2 pO2 HCO3 ABG pH ABG Total CO2 ABG O2 Saturation ABG O2 Content ABG Base Excess ABG Hemoglobin ABG Carboxyhemoglobin POC ABG HHb (Measured) ABG Methemoglobin ABG O2 Capacity [place] Test A-a O2 Difference Hgb O2 Saturation Vent Mode Mechanical Rate FiO2 Tidal Volume PEEP Sodium 143 Potassium 4.0 Chloride 105 Carbon Dioxide 32 H Anion Gap 10 BUN 28 H Creatinine 0.6 L Est GFR ( Amer) > 60 Est GFR (Non-Af Amer) > 60 POC Glucose (mg/dL) 192 H 174 H Random Glucose 201 H Calcium 8.2 L Phosphorus 2.8 Magnesium 2.2 06/12/18 06/12/18 06/12/18 16:27 18:11 20:54 WBC RBC Hgb Hct MCV MCH MCHC RDW Plt Count MPV Neut % (Auto) Lymph % (Auto) [place] % (Auto) Eos % (Auto) Baso % (Auto) Neut # (Auto) Lymph # (Auto) [place] # (Auto) Eos # (Auto) Baso # (Auto) pCO2 pO2 HCO3 ABG pH ABG Total CO2 ABG O2 Saturation ABG O2 Content ABG Base Excess ABG Hemoglobin ABG Carboxyhemoglobin POC ABG HHb (Measured) ABG Methemoglobin ABG O2 Capacity [place] Test A-a O2 Difference Hgb O2 Saturation Vent Mode Mechanical Rate FiO2 Tidal Volume PEEP Sodium Potassium Chloride Carbon Dioxide Anion Gap BUN Creatinine Est GFR ( Amer) Est GFR (Non-Af Amer) POC Glucose (mg/dL) 90 126 H 147 H Random Glucose Calcium Phosphorus Magnesium 06/13/18 06/13/18 06/13/18 04:30 04:30 04:44 WBC 7.9 RBC 3.06 L Hgb 8.3 L Hct 25.5 L MCV 83.2 MCH 27.2 MCHC 32.7 L RDW 17.8 H Plt Count 298 MPV Neut % (Auto) Lymph % (Auto) [place] % (Auto) Eos % (Auto) Baso % (Auto) Neut # (Auto) Lymph # (Auto) [place] # (Auto) Eos # (Auto) Baso # (Auto) pCO2 38 pO2 103 H HCO3 31.5 H ABG pH 7.53 H ABG Total CO2 33.0 H ABG O2 Saturation 100.7 H ABG O2 Content 11.6 L ABG Base Excess 8.4 H ABG Hemoglobin 8.3 L ABG Carboxyhemoglobin 1.8 H POC ABG HHb (Measured) -0.7 L ABG Methemoglobin 1.2 ABG O2 Capacity 11.5 L Forrest Test Yes A-a O2 Difference 206.0 Hgb O2 Saturation 97.7 Vent Mode Mechanical Rate FiO2 50.0 Tidal Volume PEEP Sodium 140 Potassium 4.0 Chloride 99 Carbon Dioxide 30 Anion Gap 15 BUN 27 H Creatinine 0.5 L Est GFR ( Amer) > 60 Est GFR (Non-Af Amer) > 60 POC Glucose (mg/dL) Random Glucose 144 H Calcium 8.3 L Phosphorus Magnesium 06/13/18 06:16 WBC RBC Hgb Hct MCV MCH MCHC RDW Plt Count MPV Neut % (Auto) Lymph % (Auto) [place] % (Auto) Eos % (Auto) Baso % (Auto) Neut # (Auto) Lymph # (Auto) [place] # (Auto) Eos # (Auto) Baso # (Auto) pCO2 pO2 HCO3 ABG pH ABG Total CO2 ABG O2 Saturation ABG O2 Content ABG Base Excess ABG Hemoglobin ABG Carboxyhemoglobin POC ABG HHb (Measured) ABG Methemoglobin ABG O2 Capacity [place] Test A-a O2 Difference Hgb O2 Saturation Vent Mode Mechanical Rate FiO2 Tidal Volume PEEP Sodium Potassium Chloride Carbon Dioxide Anion Gap BUN Creatinine Est GFR ( Amer) Est GFR (Non-Af Amer) POC Glucose (mg/dL) 143 H Random Glucose Calcium Phosphorus Magnesium Microbiology 06/11/18 17:30 Blood-Venous Blood Culture - Preliminary NO GROWTH AFTER 24 HOURS 06/11/18 17:15 Blood-Venous Blood Culture - Preliminary NO GROWTH AFTER 24 HOURS 05/31/18 12:34 Blood-Venous Blood Culture - Final NO GROWTH AFTER 5 DAYS 05/31/18 12:34 Blood-Venous Gram Stain - Final TEST NOT PERFORMED 05/31/18 12:44 Blood-Venous Blood Culture - Final NO GROWTH AFTER 5 DAYS 05/31/18 12:44 Blood-Venous Gram Stain - Final TEST NOT PERFORMED 05/28/18 05:00 Bronchial Washings Bronchial Culture - Final Renee Albicans 05/27/18 21:00 Blood-Venous Blood Culture - Final NO GROWTH AFTER 5 DAYS 05/27/18 21:00 Blood-Venous Gram Stain - Final TEST NOT PERFORMED 05/27/18 21:05 Blood-Venous Blood Culture - Final NO GROWTH AFTER 5 DAYS 05/27/18 21:05 Blood-Venous Gram Stain - Final TEST NOT PERFORMED 05/26/18 14:13 Blood-Venous Blood Culture - Final NO GROWTH AFTER 5 DAYS 05/26/18 14:13 Blood-Venous Gram Stain - Final TEST NOT PERFORMED 05/27/18 21:00 Trachasp Gram Stain - Final 05/27/18 21:00 Trachasp Sputum Culture - Final Yeast Species 05/24/18 14:15 Blood-Venous Blood Culture - Final NO GROWTH AFTER 5 DAYS 05/24/18 14:15 Blood-Venous Gram Stain - Final TEST NOT PERFORMED 05/24/18 14:00 Blood-Venous Blood Culture - Final NO GROWTH AFTER 5 DAYS 05/24/18 14:00 Blood-Venous Gram Stain - Final TEST NOT PERFORMED 05/27/18 21:00 Urine,Catheterized Urine Culture - Final No Growth (<1,000 CFU/ML) 05/24/18 15:00 Sputum Gram Stain - Final 05/24/18 15:00 Sputum Sputum Culture - Final Yeast Species 05/24/18 09:35 Urine,Catheterized Urine Culture - Final No Growth (<1,000 CFU/ML) 05/20/18 15:31 Blood-Venous Blood Culture - Final NO GROWTH AFTER 5 DAYS 05/20/18 15:31 Blood-Venous Gram Stain - Final TEST NOT PERFORMED 05/20/18 15:42 Blood-Venous Blood Culture - Final NO GROWTH AFTER 5 DAYS 05/20/18 15:42 Blood-Venous Gram Stain - Final TEST NOT PERFORMED 05/24/18 09:35 Naris MRSA Culture (Admit) - Final MRSA NOT DETECTED 05/21/18 16:57 Sputum Induced Gram Stain - Final 05/21/18 16:57 Sputum Induced Sputum Culture - Final Yeast Species 05/12/18 07:50 Blood Blood Culture - Final NO GROWTH AFTER 5 DAYS 05/12/18 07:50 Blood Gram Stain - Final TEST NOT PERFORMED 05/12/18 Unknown Blood Blood Culture - Final NO GROWTH AFTER 5 DAYS 05/12/18 Unknown Blood Gram Stain - Final TEST NOT PERFORMED 05/12/18 08:40 Urine,Catheterized Urine Culture - Final Escherichia Coli Assessment and Plan (1) Sepsis syndrome Status: Acute (2) Fever Status: Resolved (3) Hypoxemia Status: Chronic (4) Aspiration pneumonia Status: Acute - Assessment and Plan (Free Text) Assessment: A/P- 82 year old [place] resident male with dementia, admitted with fever initially and had UTI and ? asp pneumonia and was treated with IV antibiotiocs and was fever free and normal wbc and doing ok but few days ago had aspiration pneumonia and hypoxemic and rapid a.fib and is s/p intubation and in ICU. s/p trach and peg. afebrile ON TC today normal wbc today, cxr- right side infiltrates but improved compared to before. admission UA- Pos LE, neg Nitrates admission urine cx- E.Coli pansensitive- treated for this already blood cx- neg x 8 sputum cx- yeast BAL cx- C.Albicans PLan- advise to continue with IV meropenem empiric coverage day #18. advise 2 more days on meropenem. also advise to continue with IV fluconazole for yeast in sputum.day #17 advise 3 more days of IV fluconzole. completed 10 days of IV empiric vanco. all labs and imaging and chart notes reviewed. critical care time spent 30 minutes.
--- NOTE | 2018-06-13 14:04 | PN ---
DATE: 06/13/2018 CRITICAL CARE PROGRESS NOTE LOCATION: The patient in ICU, bed 434. TIME SPENT: 35 minutes. SUBJECTIVE: The patient is seen and evaluated at the bedside. Past medical, surgical, family, and social history reviewed. Consultants and nursing updates are reviewed. An 82-year-old male group home resident admitted with fever secondary to urinary tract infection, possible aspiration pneumonia, now status post tracheostomy and PEG insertion, on PEG feeding, tolerating well. No nausea, vomiting, or diarrhea. PHYSICAL EXAMINATION: VITAL SIGNS: Temperature 98.8, heart rate 70 and regular, blood pressure 150/90, mean arterial pressure 110, respiratory rate 22, on trach collar, saturation 97%. Intake 2152, output 925. Positive balance 227. Weight 130 pounds. HEENT: Atraumatic, normocephalic. Pupils are equal, round and reactive to light and accommodation. Extraocular muscles are intact. Conjunctivae pink. Sclerae white. NECK: Supple. Tracheostomy site clean without any drainage. CHEST: Bilateral breath sounds. HEART: Rhythm regular. ABDOMEN: Bowel sounds present, soft. PEG in place. NEUROLOGIC: Slow response to tactile stimuli, opens eyes. Does not follow commands. CURRENT MEDICATIONS: Tylenol 650 every 4 hours p.r.n., Mucomyst 10% 2 mL via nebulizer every 8 hours, Fosamax 70 mg p.o. once a week, artificial tears two drops every 6 hours, Os-Jigar 500 mg twice daily, vitamin D 1000 units p.o. twice daily, Aricept 5 mg p.o. at bedtime, fluconazole 100 mg in 50 mL IV daily, Humalog based on Accu-Chek, Atrovent 0.5 mg inhalation every 8 hours, Namenda 5 mg p.o. every 12 hours, meropenem 1 g IV daily, multivitamin one tablet daily, Protonix 40 mg daily, Colace one tablet at night, Flomax 0.4 mg daily, vitamin A and D ointment one each topically twice daily. LABORATORY DATA: WBC 7.9, hemoglobin 8.3, hematocrit 25.5, and platelet count 298. PT 14.4, INR 1.3, PTT 32.4. ABG: pH 7.53, pCO2 38, pO2 103, oxygen saturation 100.7 on trach collar 50%. SMA-7: Sodium 140, potassium 4, chloride 99, CO2 30, blood urea nitrogen 27, creatinine 0.5, random glucose 143, calcium 8.3. Urinalysis: Leukocyte esterase negative, rbc 46, wbc 4, bacteria rare. Microbiology: Bronchial washing, positive for Renee albicans. Blood culture: No growth reported. Chest x-ray on 06/12/2018, persistent infiltrate in the right upper lobe and right mid lung field with lesser degree in the right lower lung field. Trachea is midline with tracheostomy tube in place. No new effusion. IMPRESSION: 1. Neurologic: Does not respond to verbal commands. No sedation required. Responds to tactile stimuli. Eyes open spontaneously. 2. Pulmonary: Status post acute respiratory failure, status post tracheostomy, now on trach collar 50% with adequate oxygenation. Reduce FiO2 to 40%. 3. Cardiovascular: Hemodynamically stable. Hypertension, controlled on Lopressor 50 mg every 12 hours. 4. Hematology: Anemia, chronic disease. No overt gastrointestinal bleeding noted. 5. Endocrinology: Diabetes mellitus type 2, on insulin coverage. 6. Gastrointestinal: Glucerna 70 mL per hour, free water 150 mL every 4 hours. 7. Infectious Disease: Healthcare-associated pneumonia, on meropenem and Flagyl., to continue for 2 more days Deep vein thrombosis prophylaxis with Lovenox. Gastrointestinal prophylaxis, on Protonix. Maintain Ecrrato for accurate intake and input. Code status, DNR. Being evaluated for transfer to long-term care facility. Prognosis remains guarded. Jose Stevens MD MTDD
--- NOTE | 2018-06-13 14:54 | CP.PCM.PN ---
Subjective - Subjective Subjective: minimal response to tactil stimuli, Tracheostomy, Trach collar Objective - Vital Signs/Intake and Output Vital Signs (last 24 hours): Temp Pulse Resp BP Pulse Ox 98.4 F 64 16 128/66 98 06/13/18 12:00 06/13/18 12:00 06/13/18 12:00 06/13/18 12:00 06/13/18 12:00 Intake and Output: 06/13/18 06/13/18 06:59 18:59 Intake Total 1462 430 Output Total 925 Balance 537 430 - Medications Medications: Current Medications Acetaminophen (Tylenol 650 Mg Supp) 650 mg LA Q4 PRN PRN Reason: Fever >100.4 F Acetaminophen (Tylenol 650mg/20.3ml Solution Ud) 650 mg PO Q4 PRN PRN Reason: for temp 100.4 and above Last Admin: 06/11/18 20:23 Dose: 650 mg Acetylcysteine (Mucomyst 10% 4ml) 2 ml IH RQ8 [facility] Last Admin: 06/13/18 07:23 Dose: 2 ml Alendronate Sodium (Fosamax) 70 mg PO FR [facility] Last Admin: 05/21/18 10:29 Dose: 70 mg Artificial Tears (Artificial Tears) 2 drop OU Q6 [facility] Last Admin: 06/13/18 09:08 Dose: 2 drop Calcium Carbonate (Oscal) 500 mg PO BID [facility] Last Admin: 05/21/18 10:26 Dose: 500 mg Cholecalciferol (Vitamin D) 1,000 intlu PO BID [facility] Last Admin: 05/21/18 10:27 Dose: 1,000 intlu Dextrose (Dextrose 50% Inj) 0 ml IV STAT PRN; Protocol PRN Reason: Hypoglycemia Protocol Dextrose (Glutose 15) 0 gm PO ONCE PRN; Protocol PRN Reason: Hypoglycemia Protocol Donepezil HCl (Aricept) 5 mg PO HS [facility] Last Admin: 05/20/18 21:28 Dose: 5 mg Glucagon (Glucagen Diagnostic Kit) 0 mg IM STAT PRN; Protocol PRN Reason: Hypoglycemia Protocol Fluconazole (Diflucan Iv 100 Mg/50 Ml Ns) 50 mls @ 50 mls/hr IVPB DAILY [facility]; Protocol Last Admin: 06/13/18 09:09 Dose: 50 mls/hr Meropenem 1 gm/ Sodium (Chloride) 100 mls @ 100 mls/hr IVPB Q8 [facility]; Protocol Last Admin: 06/13/18 09:56 Dose: 100 mls/hr Insulin Human Lispro (Humalog) 0 units SC Q6H [facility]; Protocol Last Admin: 06/13/18 11:59 Dose: 2 units Ipratropium [place] (Atrovent) 0.5 mg IH RQ8 [facility] Last Admin: 06/13/18 07:23 Dose: 0.5 mg Memantine (Namenda) 5 mg PO Q12 [facility] Last Admin: 05/21/18 10:25 Dose: 5 mg Multivitamins/Minerals (Therapeutic-M Tab) 1 tab PO DAILY [facility] Last Admin: 05/21/18 10:27 Dose: 1 tab Pantoprazole Sodium (Protonix Susp) 40 mg PEG DAILY [facility] Last Admin: 06/13/18 09:09 Dose: 40 mg Senna/Docusate Sodium (Senokot S 50 Mg-8.6 Mg) 1 tab PO HS [facility] Last Admin: 05/20/18 21:29 Dose: 1 tab Tamsulosin HCl (Flomax) 0.4 mg PO QPM [facility] Last Admin: 05/20/18 17:19 Dose: 0.4 mg Vitamin A (Vitamin A & D Oint Ud Foilpak) 1 ea TOP BID [facility] Last Admin: 06/13/18 09:08 Dose: 1 ea - Labs Labs: 06/13/18 04:30 06/13/18 04:30 PT 14.4 Seconds (9.8-13.1) H 06/10/18 04:50 INR 1.3 06/10/18 04:50 APTT 32.4 Seconds (25.6-37.1) 06/10/18 04:50 - Constitutional Appears: Chronically Ill - Head Exam Head Exam: NORMAL INSPECTION - Eye Exam Eye Exam: PERRL - ENT Exam ENT Exam: Normal Exam - Neck Exam Additional comments: Tracheostomy - Respiratory Exam Respiratory Exam: Decreased Breath Sounds (at bases) - Cardiovascular Exam Cardiovascular Exam: REGULAR RHYTHM - GI/Abdominal Exam GI & Abdominal Exam: Soft, Normal Bowel Sounds Additional comments: PEG tube - Extremities Exam Extremities Exam: Normal Inspection - Neurological Exam Additional comments: minimal response to tactil stimuli Assessment and Plan (1) Aspiration pneumonia Status: Acute (2) E. coli UTI Status: Acute (3) Fever Status: Resolved (4) Sepsis syndrome Status: Acute (5) Hypoxemia Status: Chronic (6) Dementia Status: Chronic (7) HTN (hypertension) Status: Chronic (8) DMII (diabetes mellitus, type 2) Status: Chronic (9) S/P percutaneous endoscopic gastrostomy (PEG) tube placement Status: Acute (10) S/P percutaneous endoscopic gastrostomy (PEG) tube placement Status: Acute - Assessment and Plan (Free Text) Plan: CXR stable infiltrates,afebril,WBC normal, complete Abt Tx as per ID Critical care time: 30 min.
[2018-06-14] MEDS: Insulin Lispro (humaLOG) 100 Units/ml Inj SC SCH ×4 (00:23→18:27)
[2018-06-14] MEDS: Meropenem 1 GM in Sodium Chloride 0.9% 100 ML IVPB SCH ×3 (00:24→17:12)
[2018-06-14] MEDS: Artificial Tears Opht Soln OU SCH ×4 (03:52→21:06)
[2018-06-14 06:16] LABS: HEMOGLOBIN 9.2 g/dL (12.0-18.0); MEAN CELL VOLUME 83.2 fl (80.0-94.0); MEAN CORPUSCULAR HEMOGLOBIN 27.3 pg (27.0-31.0); MEAN CORPUSCULAR HGB CONC 32.9 g/dL (33.0-37.0); RBC 3.36 Mil/uL (4.40-5.90); RED CELL DISTRIBUTION WIDTH 17.3 % (11.5-14.5); WHITE BLOOD COUNT 7.7 K/uL (4.8-10.8)
[2018-06-14 06:31] LABS: BLOOD UREA NITROGEN 23 mg/dl (9-20); CALCIUM 8.7 mg/dL (8.4-10.2); GFR NON-AFRICAN AMERICAN > 60
[2018-06-14] MEDS: Acetylcysteine 10% 4 ML IH SCH ×3 (07:52→23:48)
[2018-06-14] MEDS: Ipratropium 0.02% Inhal Soln (0.5 mg/2.5 ml) UD IH SCH ×3 (07:52→23:47)
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
[2018-06-14] MEDS: Pantoprazole 40 mg Susp UD PEG SCH (09:01)
[2018-06-14] MEDS: Fluconazole IV 100mg/50 ml NS 50 ML IVPB SCH (09:01)
[2018-06-14] MEDS: Vitamins A & D Oint UD Foilpak TOP SCH ×2 (09:02→17:12)
--- NOTE | 2018-06-14 14:01 | CP.PCM.PN ---
Subjective - Date & Time of Evaluation Date of Evaluation: 06/14/18 Time of Evaluation: 10:20 - Subjective Subjective: F/U Respiratory Failure Minimal response to tactile stimuli, spontaneous movements with the upper extremities Objective - Vital Signs/Intake and Output Vital Signs (last 24 hours): Temp Pulse Resp BP Pulse Ox 97.5 F L 79 17 145/90 100 06/14/18 12:00 06/14/18 12:00 06/14/18 12:00 06/14/18 12:00 06/14/18 12:00 Intake and Output: 06/14/18 06/14/18 06:59 18:59 Intake Total 1440 690 Output Total 926 15 Balance 514 675 - Medications Medications: Current Medications Acetaminophen (Tylenol 650 Mg Supp) 650 mg SC Q4 PRN PRN Reason: Fever >100.4 F Acetaminophen (Tylenol 650mg/20.3ml Solution Ud) 650 mg PO Q4 PRN PRN Reason: for temp 100.4 and above Last Admin: 06/11/18 20:23 Dose: 650 mg Acetylcysteine (Mucomyst 10% 4ml) 2 ml IH RQ8 [facility] Last Admin: 06/14/18 07:52 Dose: 2 ml Alendronate Sodium (Fosamax) 70 mg PO FR [facility] Last Admin: 05/21/18 10:29 Dose: 70 mg Artificial Tears (Artificial Tears) 2 drop OU Q6 [facility] Last Admin: 06/14/18 09:02 Dose: 2 drop Calcium Carbonate (Oscal) 500 mg PO BID [facility] Last Admin: 05/21/18 10:26 Dose: 500 mg Cholecalciferol (Vitamin D) 1,000 intlu PO BID [facility] Last Admin: 05/21/18 10:27 Dose: 1,000 intlu Dextrose (Dextrose 50% Inj) 0 ml IV STAT PRN; Protocol PRN Reason: Hypoglycemia Protocol Dextrose (Glutose 15) 0 gm PO ONCE PRN; Protocol PRN Reason: Hypoglycemia Protocol Donepezil HCl (Aricept) 5 mg PO HS [facility] Last Admin: 05/20/18 21:28 Dose: 5 mg Glucagon (Glucagen Diagnostic Kit) 0 mg IM STAT PRN; Protocol PRN Reason: Hypoglycemia Protocol Fluconazole (Diflucan Iv 100 Mg/50 Ml Ns) 50 mls @ 50 mls/hr IVPB DAILY [facility]; Protocol Last Admin: 06/14/18 09:01 Dose: 50 mls/hr Meropenem 1 gm/ Sodium (Chloride) 100 mls @ 100 mls/hr IVPB Q8 [facility]; Protocol Last Admin: 06/14/18 09:00 Dose: 100 mls/hr Insulin Human Lispro (Humalog) 0 units SC Q6H KEN; Protocol Last Admin: 06/14/18 06:04 Dose: 2 units Ipratropium [place] (Atrovent) 0.5 mg IH RQ8 KEN Last Admin: 06/14/18 07:52 Dose: 0.5 mg Memantine (Namenda) 5 mg PO Q12 KEN Last Admin: 05/21/18 10:25 Dose: 5 mg Multivitamins/Minerals (Therapeutic-M Tab) 1 tab PO DAILY [facility] Last Admin: 05/21/18 10:27 Dose: 1 tab Pantoprazole Sodium (Protonix Susp) 40 mg PEG DAILY [facility] Last Admin: 06/14/18 09:01 Dose: 40 mg Senna/Docusate Sodium (Senokot S 50 Mg-8.6 Mg) 1 tab PO HS [facility] Last Admin: 05/20/18 21:29 Dose: 1 tab Tamsulosin HCl (Flomax) 0.4 mg PO QPM [facility] Last Admin: 05/20/18 17:19 Dose: 0.4 mg Vitamin A (Vitamin A & D Oint Ud Foilpak) 1 ea TOP BID [facility] Last Admin: 06/14/18 09:02 Dose: 1 ea - Labs Labs: 06/14/18 05:20 06/14/18 05:20 PT 14.4 Seconds (9.8-13.1) H 06/10/18 04:50 INR 1.3 06/10/18 04:50 APTT 32.4 Seconds (25.6-37.1) 06/10/18 04:50 - Constitutional Appears: Chronically Ill - Head Exam Head Exam: NORMAL INSPECTION - Eye Exam Eye Exam: PERRL - ENT Exam ENT Exam: Normal Exam - Neck Exam Additional comments: Tracheostomy, Trach Collar - Respiratory Exam Respiratory Exam: Decreased Breath Sounds (at bases) - Cardiovascular Exam Cardiovascular Exam: REGULAR RHYTHM - GI/Abdominal Exam GI & Abdominal Exam: Soft Additional comments: Peg Tube - Extremities Exam Extremities Exam: Normal Inspection - Back Exam Additional comments: Scral ulcer unstageable - Neurological Exam Additional comments: Minimal response to tactile stimuli, open eyes at times. - Skin Skin Exam: Warm Assessment and Plan (1) Aspiration pneumonia Status: Acute (2) E. coli UTI Status: Resolved (3) Fever Status: Resolved (4) Sepsis syndrome Status: Acute (5) Hypoxemia Status: Chronic (6) Dementia Status: Chronic (7) HTN (hypertension) Status: Chronic (8) DMII (diabetes mellitus, type 2) Status: Chronic (9) S/P percutaneous endoscopic gastrostomy (PEG) tube placement Status: Acute (10) S/P percutaneous endoscopic gastrostomy (PEG) tube placement Status: Deleted - Assessment and Plan (Free Text) Plan: Transfer to LTAC, continue Merren, Diflucan, Atrovent, Mucomyst and rest of Tx. Critical care time: 33 min.
--- NOTE | 2018-06-14 14:33 | CP.PCM.PN ---
Subjective - Date & Time of Evaluation Date of Evaluation: 06/14/18 Time of Evaluation: 14:33 - Subjective Subjective: ID Note- Pt. seen and examined today in ICU. remains unresponsive and on TC. no new events overnight. as per nurse awaiting placement at LTAC or NH. Objective - Vital Signs/Intake and Output Vital Signs (last 24 hours): Temp Pulse Resp BP Pulse Ox 97.5 F L 79 17 145/90 100 06/14/18 12:00 06/14/18 12:00 06/14/18 12:00 06/14/18 12:00 06/14/18 12:00 Intake and Output: 06/14/18 06/14/18 06:59 18:59 Intake Total 1440 690 Output Total 926 15 Balance 514 675 - Medications Medications: Current Medications Acetaminophen (Tylenol 650 Mg Supp) 650 mg [place] Q4 PRN PRN Reason: Fever >100.4 F Acetaminophen (Tylenol 650mg/20.3ml Solution Ud) 650 mg PO Q4 PRN PRN Reason: for temp 100.4 and above Last Admin: 06/11/18 20:23 Dose: 650 mg Acetylcysteine (Mucomyst 10% 4ml) 2 ml IH RQ8 [facility] Last Admin: 06/14/18 07:52 Dose: 2 ml Alendronate Sodium (Fosamax) 70 mg PO FR [facility] Last Admin: 05/21/18 10:29 Dose: 70 mg Artificial Tears (Artificial Tears) 2 drop OU Q6 KEN Last Admin: 06/14/18 09:02 Dose: 2 drop Calcium Carbonate (Oscal) 500 mg PO BID [facility] Last Admin: 05/21/18 10:26 Dose: 500 mg Cholecalciferol (Vitamin D) 1,000 intlu PO BID [facility] Last Admin: 05/21/18 10:27 Dose: 1,000 intlu Dextrose (Dextrose 50% Inj) 0 ml IV STAT PRN; Protocol PRN Reason: Hypoglycemia Protocol Dextrose (Glutose 15) 0 gm PO ONCE PRN; Protocol PRN Reason: Hypoglycemia Protocol Donepezil HCl (Aricept) 5 mg PO HS [facility] Last Admin: 05/20/18 21:28 Dose: 5 mg Glucagon (Glucagen Diagnostic Kit) 0 mg IM STAT PRN; Protocol PRN Reason: Hypoglycemia Protocol Fluconazole (Diflucan Iv 100 Mg/50 Ml Ns) 50 mls @ 50 mls/hr IVPB DAILY KEN; Protocol Last Admin: 06/14/18 09:01 Dose: 50 mls/hr Meropenem 1 gm/ Sodium (Chloride) 100 mls @ 100 mls/hr IVPB Q8 KEN; Protocol Last Admin: 06/14/18 09:00 Dose: 100 mls/hr Insulin Human Lispro (Humalog) 0 units SC Q6H KEN; Protocol Last Admin: 06/14/18 06:04 Dose: 2 units Ipratropium [place] (Atrovent) 0.5 mg IH RQ8 KEN Last Admin: 06/14/18 07:52 Dose: 0.5 mg Memantine (Namenda) 5 mg PO Q12 KEN Last Admin: 05/21/18 10:25 Dose: 5 mg Multivitamins/Minerals (Therapeutic-M Tab) 1 tab PO DAILY KEN Last Admin: 05/21/18 10:27 Dose: 1 tab Pantoprazole Sodium (Protonix Susp) 40 mg PEG DAILY KEN Last Admin: 06/14/18 09:01 Dose: 40 mg Senna/Docusate Sodium (Senokot S 50 Mg-8.6 Mg) 1 tab PO HS KEN Last Admin: 05/20/18 21:29 Dose: 1 tab Tamsulosin HCl (Flomax) 0.4 mg PO QPM KEN Last Admin: 05/20/18 17:19 Dose: 0.4 mg Vitamin A (Vitamin A & D Oint Ud Foilpak) 1 ea TOP BID KEN Last Admin: 06/14/18 09:02 Dose: 1 ea - Labs Labs: - Additional Findings Additional findings: - Constitutional Appears: Chronically Ill - ENT Exam Additional comments: trached and on TC now - Respiratory Exam Additional comments: breath sounds heard b/l is on the vent - Cardiovascular Exam Cardiovascular Exam: , +S1, +S2 RRR - GI/Abdominal Exam GI & Abdominal Exam: Soft, Normal Bowel Sounds Additional comments: ND, NT - Extremities Exam Extremities Exam: Normal Inspection - Neurological Exam Additional comments: unresponsive Laboratory Results - last 72 hr 06/11/18 06/11/18 06/12/18 16:21 20:18 02:26 WBC RBC Hgb Hct MCV MCH MCHC RDW Plt Count MPV Neut % (Auto) Lymph % (Auto) Monroe % (Auto) Eos % (Auto) Baso % (Auto) Neut # (Auto) Lymph # (Auto) Monroe # (Auto) Eos # (Auto) Baso # (Auto) pCO2 pO2 HCO3 ABG pH ABG Total CO2 ABG O2 Saturation ABG O2 Content ABG Base Excess ABG Hemoglobin ABG Carboxyhemoglobin POC ABG HHb (Measured) ABG Methemoglobin ABG O2 Capacity Forrest Test A-a O2 Difference Hgb O2 Saturation Vent Mode FiO2 PEEP Pressure Support Sodium Potassium Chloride Carbon Dioxide Anion Gap BUN Creatinine Est GFR ( Amer) Est GFR (Non-Af Amer) POC Glucose (mg/dL) 114 H 161 H 186 H Random Glucose Calcium Phosphorus Magnesium 06/12/18 06/12/18 06/12/18 04:24 04:30 04:30 WBC 8.5 RBC 2.98 L Hgb 8.1 L Hct 25.0 L MCV 83.9 MCH 27.1 MCHC 32.3 L RDW 18.0 H Plt Count 286 MPV 9.0 Neut % (Auto) 78.5 H Lymph % (Auto) 10.1 L Monroe % (Auto) 9.6 Eos % (Auto) 1.5 Baso % (Auto) 0.3 Neut # (Auto) 6.6 Lymph # (Auto) 0.9 L Monroe # (Auto) 0.8 Eos # (Auto) 0.1 Baso # (Auto) 0.0 pCO2 37 pO2 131 H HCO3 32.2 H ABG pH 7.55 H ABG Total CO2 33.5 H ABG O2 Saturation 99.2 H ABG O2 Content 11.5 L ABG Base Excess 9.3 H ABG Hemoglobin 8.2 L ABG Carboxyhemoglobin 0.4 L POC ABG HHb (Measured) 0.8 ABG Methemoglobin 1.6 ABG O2 Capacity 11.6 L Forrest Test Yes A-a O2 Difference 108.0 Hgb O2 Saturation 97.1 Vent Mode Cpap FiO2 40.0 PEEP 5 Pressure Support 5 Sodium 143 Potassium 4.0 Chloride 105 Carbon Dioxide 32 H Anion Gap 10 BUN 28 H Creatinine 0.6 L Est GFR ( Amer) > 60 Est GFR (Non-Af Amer) > 60 POC Glucose (mg/dL) Random Glucose 201 H Calcium 8.2 L Phosphorus 2.8 Magnesium 2.2 03/16/19 03/16/19 03/16/19 07:56 11:28 16:27 WBC RBC Hgb Hct MCV MCH MCHC RDW Plt Count MPV Neut % (Auto) Lymph % (Auto) Monroe % (Auto) Eos % (Auto) Baso % (Auto) Neut # (Auto) Lymph # (Auto) Monroe # (Auto) Eos # (Auto) Baso # (Auto) pCO2 pO2 HCO3 ABG pH ABG Total CO2 ABG O2 Saturation ABG O2 Content ABG Base Excess ABG Hemoglobin ABG Carboxyhemoglobin POC ABG HHb (Measured) ABG Methemoglobin ABG O2 Capacity Forrest Test A-a O2 Difference Hgb O2 Saturation Vent Mode FiO2 PEEP Pressure Support Sodium Potassium Chloride Carbon Dioxide Anion Gap BUN Creatinine Est GFR ( Amer) Est GFR (Non-Af Amer) POC Glucose (mg/dL) 192 H 174 H 90 Random Glucose Calcium Phosphorus Magnesium 06/12/18 06/12/18 06/13/18 18:11 20:54 04:30 WBC 7.9 RBC 3.06 L Hgb 8.3 L Hct 25.5 L MCV 83.2 MCH 27.2 MCHC 32.7 L RDW 17.8 H Plt Count 298 MPV Neut % (Auto) Lymph % (Auto) Monroe % (Auto) Eos % (Auto) Baso % (Auto) Neut # (Auto) Lymph # (Auto) Monroe # (Auto) Eos # (Auto) Baso # (Auto) pCO2 pO2 HCO3 ABG pH ABG Total CO2 ABG O2 Saturation ABG O2 Content ABG Base Excess ABG Hemoglobin ABG Carboxyhemoglobin POC ABG HHb (Measured) ABG Methemoglobin ABG O2 Capacity Forrest Test A-a O2 Difference Hgb O2 Saturation Vent Mode FiO2 PEEP Pressure Support Sodium Potassium Chloride Carbon Dioxide Anion Gap BUN Creatinine Est GFR ( Amer) Est GFR (Non-Af Amer) POC Glucose (mg/dL) 126 H 147 H Random Glucose Calcium Phosphorus Magnesium 06/13/18 06/13/18 06/13/18 04:30 04:44 06:16 WBC RBC Hgb Hct MCV MCH MCHC RDW Plt Count MPV Neut % (Auto) Lymph % (Auto) Monroe % (Auto) Eos % (Auto) Baso % (Auto) Neut # (Auto) Lymph # (Auto) Monroe # (Auto) Eos # (Auto) Baso # (Auto) pCO2 38 pO2 103 H HCO3 31.5 H ABG pH 7.53 H ABG Total CO2 33.0 H ABG O2 Saturation 100.7 H ABG O2 Content 11.6 L ABG Base Excess 8.4 H ABG Hemoglobin 8.3 L ABG Carboxyhemoglobin 1.8 H POC ABG HHb (Measured) -0.7 L ABG Methemoglobin 1.2 ABG O2 Capacity 11.5 L Forrest Test Yes A-a O2 Difference 206.0 Hgb O2 Saturation 97.7 Vent Mode FiO2 50.0 PEEP Pressure Support Sodium 140 Potassium 4.0 Chloride 99 Carbon Dioxide 30 Anion Gap 15 BUN 27 H Creatinine 0.5 L Est GFR ( Amer) > 60 Est GFR (Non-Af Amer) > 60 POC Glucose (mg/dL) 143 H Random Glucose 144 H Calcium 8.3 L Phosphorus Magnesium 06/13/18 06/13/18 06/13/18 11:03 18:00 23:31 WBC RBC Hgb Hct MCV MCH MCHC RDW Plt Count MPV Neut % (Auto) Lymph % (Auto) Monroe % (Auto) Eos % (Auto) Baso % (Auto) Neut # (Auto) Lymph # (Auto) Monroe # (Auto) Eos # (Auto) Baso # (Auto) pCO2 pO2 HCO3 ABG pH ABG Total CO2 ABG O2 Saturation ABG O2 Content ABG Base Excess ABG Hemoglobin ABG Carboxyhemoglobin POC ABG HHb (Measured) ABG Methemoglobin ABG O2 Capacity Forrest Test A-a O2 Difference Hgb O2 Saturation Vent Mode FiO2 PEEP Pressure Support Sodium Potassium Chloride Carbon Dioxide Anion Gap BUN Creatinine Est GFR ( Amer) Est GFR (Non-Af Amer) POC Glucose (mg/dL) 179 H 124 H 149 H Random Glucose Calcium Phosphorus Magnesium 06/14/18 06/14/18 06/14/18 05:20 05:20 06:02 WBC 7.7 RBC 3.36 L Hgb 9.2 L Hct 27.9 L MCV 83.2 MCH 27.3 MCHC 32.9 L RDW 17.3 H Plt Count 277 MPV Neut % (Auto) Lymph % (Auto) Monroe % (Auto) Eos % (Auto) Baso % (Auto) Neut # (Auto) Lymph # (Auto) Monroe # (Auto) Eos # (Auto) Baso # (Auto) pCO2 pO2 HCO3 ABG pH ABG Total CO2 ABG O2 Saturation ABG O2 Content ABG Base Excess ABG Hemoglobin ABG Carboxyhemoglobin POC ABG HHb (Measured) ABG Methemoglobin ABG O2 Capacity Forrest Test A-a O2 Difference Hgb O2 Saturation Vent Mode FiO2 PEEP Pressure Support Sodium 138 Potassium 4.0 Chloride 96 L Carbon Dioxide 30 Anion Gap 16 BUN 23 H Creatinine 0.5 L Est GFR ( Amer) > 60 Est GFR (Non-Af Amer) > 60 POC Glucose (mg/dL) 155 H Random Glucose 151 H Calcium 8.7 Phosphorus Magnesium Microbiology 06/11/18 17:30 Blood-Venous Blood Culture - Preliminary NO GROWTH AFTER 48 HOURS 06/11/18 17:15 Blood-Venous Blood Culture - Preliminary NO GROWTH AFTER 48 HOURS 05/31/18 12:34 Blood-Venous Blood Culture - Final NO GROWTH AFTER 5 DAYS 05/31/18 12:34 Blood-Venous Gram Stain - Final TEST NOT PERFORMED 05/31/18 12:44 Blood-Venous Blood Culture - Final NO GROWTH AFTER 5 DAYS 05/31/18 12:44 Blood-Venous Gram Stain - Final TEST NOT PERFORMED 05/28/18 05:00 Bronchial Washings Bronchial Culture - Final Renee Albicans 05/27/18 21:00 Blood-Venous Blood Culture - Final NO GROWTH AFTER 5 DAYS 05/27/18 21:00 Blood-Venous Gram Stain - Final TEST NOT PERFORMED 05/27/18 21:05 Blood-Venous Blood Culture - Final NO GROWTH AFTER 5 DAYS 05/27/18 21:05 Blood-Venous Gram Stain - Final TEST NOT PERFORMED 05/26/18 14:13 Blood-Venous Blood Culture - Final NO GROWTH AFTER 5 DAYS 05/26/18 14:13 Blood-Venous Gram Stain - Final TEST NOT PERFORMED 05/27/18 21:00 Trachasp Gram Stain - Final 05/27/18 21:00 Trachasp Sputum Culture - Final Yeast Species 05/24/18 14:15 Blood-Venous Blood Culture - Final NO GROWTH AFTER 5 DAYS 05/24/18 14:15 Blood-Venous Gram Stain - Final TEST NOT PERFORMED 05/24/18 14:00 Blood-Venous Blood Culture - Final NO GROWTH AFTER 5 DAYS 05/24/18 14:00 Blood-Venous Gram Stain - Final TEST NOT PERFORMED 05/27/18 21:00 Urine,Catheterized Urine Culture - Final No Growth (<1,000 CFU/ML) 05/24/18 15:00 Sputum Gram Stain - Final 05/24/18 15:00 Sputum Sputum Culture - Final Yeast Species 05/24/18 09:35 Urine,Catheterized Urine Culture - Final No Growth (<1,000 CFU/ML) 05/20/18 15:31 Blood-Venous Blood Culture - Final NO GROWTH AFTER 5 DAYS 05/20/18 15:31 Blood-Venous Gram Stain - Final TEST NOT PERFORMED 05/20/18 15:42 Blood-Venous Blood Culture - Final NO GROWTH AFTER 5 DAYS 05/20/18 15:42 Blood-Venous Gram Stain - Final TEST NOT PERFORMED 05/24/18 09:35 Naris MRSA Culture (Admit) - Final MRSA NOT DETECTED 05/21/18 16:57 Sputum Induced Gram Stain - Final 05/21/18 16:57 Sputum Induced Sputum Culture - Final Yeast Species 05/12/18 07:50 Blood Blood Culture - Final NO GROWTH AFTER 5 DAYS 05/12/18 07:50 Blood Gram Stain - Final TEST NOT PERFORMED 05/12/18 Unknown Blood Blood Culture - Final NO GROWTH AFTER 5 DAYS 05/12/18 Unknown Blood Gram Stain - Final TEST NOT PERFORMED 05/12/18 08:40 Urine,Catheterized Urine Culture - Final Escherichia Coli Assessment and Plan (1) Sepsis syndrome Status: Acute (2) Fever Status: Resolved (3) Hypoxemia Status: Chronic (4) Aspiration pneumonia Status: Acute - Assessment and Plan (Free Text) Assessment: A/P- 82 year old [place] resident male with dementia, admitted with fever initially and had UTI and ? asp pneumonia and was treated with IV antibiotiocs and was fever free and normal wbc and doing ok but few days ago had aspiration pneumonia and hypoxemic and rapid a.fib and is s/p intubation and in ICU. s/p trach and peg. afebrile ON TC . normal wbc today, admission UA- Pos LE, neg Nitrates admission urine cx- E.Coli pansensitive- treated for this already blood cx- neg x 8 sputum cx- yeast BAL cx- C.Albicans PLan- advise to continue with IV meropenem empiric coverage day #19. advise 1 more day on meropenem. also advise to continue with IV fluconazole for yeast in sputum.day #18 advise 2 more days of IV fluconzole. completed 10 days of IV empiric vanco. all labs and imaging and chart notes reviewed. critical care time spent 30 minutes.
[2018-06-15] MEDS: Insulin Lispro (humaLOG) 100 Units/ml Inj SC SCH ×4 (01:19→17:58)
[2018-06-15] MEDS: Artificial Tears Opht Soln OU SCH (03:49)
[2018-06-15 05:32] LABS: MEAN CELL VOLUME 82.3 fl (80.0-94.0); MEAN CORPUSCULAR HEMOGLOBIN 27.4 pg (27.0-31.0); MEAN CORPUSCULAR HGB CONC 33.3 g/dL (33.0-37.0); RBC 3.3 Mil/uL (4.40-5.90); RED CELL DISTRIBUTION WIDTH 17.8 % (11.5-14.5); WHITE BLOOD COUNT 8.6 K/uL (4.8-10.8)
[2018-06-15 05:45] LABS: BLOOD UREA NITROGEN 24 mg/dl (9-20); CALCIUM 8.9 mg/dL (8.4-10.2); GFR NON-AFRICAN AMERICAN > 60
[2018-06-15] MEDS: Fluconazole IV 100mg/50 ml NS 50 ML IVPB SCH (08:45)
[2018-06-15] MEDS: Pantoprazole 40 mg Susp UD PEG SCH (08:45)
[2018-06-15] MEDS: Vitamins A & D Oint UD Foilpak TOP SCH (08:46)
--- NOTE | 2018-06-15 10:40 | CP.CCUPN ---
CCU Subjective - Physician Review Subjective (Free Text): 06/15/18 10:27 The patient was Seen/interviewed and examined by me at the bedside during ICU round, Medical records reviewed and Management issues were discussed and formulated with the house staff. Events reviewed Patient is a 81 years old male with past medical history of hypertension, type 2 diabetes and dementia who initially presented to the emergency room by EMS from alf for evaluation of fever and sepsis He was transferred to the intensive care unit on May 24 after [employer] was called due to hypoxemia with hypotension, at that time his blood pressure was 96/50, HR 93 RR 22 and oxygen saturation was 82% and required intubation and mechanical ventilation Currently he is managed in the ICU for acute hypoxemic respiratory failure secondary to bilateral multilobar pneumonia, severe sepsis/septic shock due to E. coli urinary tract infection ICU course c/b failure to extubate, and Patient S/P trach and S/P PEG last week This morning the patient is totally of all sedation but he still not following command, lethargic, non verbal On Trach Colar for several days And the plan is to transfer to LTAC today CCU Objective - Vital Signs / Intake & Output Vital Signs (Last 4 hours): Vital Signs Temp Pulse Resp BP Pulse Ox 06/15/18 10:00 67 18 109/60 100 06/15/18 08:00 98.1 F 73 18 99/52 L 100 Intake and Output (Last 8hrs): Intake & Output 06/14/18 06/15/18 06/15/18 22:59 06:59 14:59 Intake Total 1160 810 580 Output Total 750 850 Balance 410 -40 580 Weight 126 lb Intake: Intake, Piggyback 100 50 Tube Feeding 560 560 280 Free Water Flush 500 250 250 Output: Urine 750 850 Urethral (Cerrato) 750 850 Other: # Bowel Movements 1 - Physical Exam Head: Positive for: Atraumatic, Normocephalic Pupils: Positive for: PERRL Extroacular Muscles: Positive for: EOMI Conjunctiva: Positive for: Normal. Negative for: Injected, Icteric Mouth: Positive for: Moist Mucous Membranes Neck: Positive for: Normal Range of Motion, Trachea Midline Respiratory/Chest: Positive for: Good Air Exchange, Rales, Rhonchi. Negative for: Respiratory Distress, Accessory Muscle Use, Wheezes Cardiovascular: Positive for: Regular Rate and Rhythm, Normal S1, S2. Negative for: Murmurs Abdomen: Positive for: Normal Bowel Sounds. Negative for: Tenderness, Distention Neurological: Positive for: Other (opens eyes occasionally) - Medications Active Medications: Active Medications Generic Name Dose Route Start Last Admin Trade Name Freq PRN Reason Stop Dose Admin Acetaminophen 650 mg 06/10/18 23:39 Tylenol 650 Mg Supp WI Q4 PRN Fever >100.4 F Acetaminophen 650 mg 06/11/18 16:16 06/11/18 20:23 Tylenol 650mg/20.3ml Solution Ud PO 650 mg Q4 PRN Administration for temp 100.4 and above Alendronate Sodium 70 mg 05/21/18 09:00 05/21/18 10:29 Fosamax PO 70 mg FR KEN Administration Calcium Carbonate 500 mg 05/17/18 17:00 05/21/18 10:26 Oscal PO 500 mg BID KEN Administration Cholecalciferol 1,000 intlu 05/17/18 17:00 05/21/18 10:27 Vitamin D PO 1,000 intlu BID KEN Administration Dextrose 0 ml 06/11/18 12:35 Dextrose 50% Inj IV STAT PRN Hypoglycemia Protocol Protocol Dextrose 0 gm 06/11/18 12:35 Glutose 15 PO ONCE PRN Hypoglycemia Protocol Protocol Donepezil HCl 5 mg 05/17/18 22:00 05/20/18 21:28 Aricept PO 5 mg HS KEN Administration Glucagon 0 mg 06/11/18 12:35 Glucagen Diagnostic Kit IM STAT PRN Hypoglycemia Protocol Protocol Fluconazole 50 mls @ 50 mls/hr 06/08/18 09:00 06/15/18 08:45 Diflucan Iv 100 Mg/50 Ml Ns IVPB 50 mls/hr DAILY KEN Administration Protocol Insulin Human Lispro 0 units 06/11/18 12:45 06/15/18 07:12 Humalog SC 2 units Q6H KEN Administration Protocol Memantine 5 mg 05/17/18 21:00 05/21/18 10:25 Namenda PO 5 mg Q12 KEN Administration Multivitamins/Minerals 1 tab 05/18/18 09:00 05/21/18 10:27 Therapeutic-M Tab PO 1 tab DAILY KEN Administration Pantoprazole Sodium 40 mg 06/11/18 10:43 06/15/18 08:45 Protonix Susp PEG 40 mg DAILY KEN Administration Senna/Docusate Sodium 1 tab 05/17/18 22:00 05/20/18 21:29 Senokot S 50 Mg-8.6 Mg PO 1 tab HS KEN Administration Tamsulosin HCl 0.4 mg 05/17/18 18:00 05/20/18 17:19 Flomax PO 0.4 mg QPM KEN Administration - Patient Studies Lab Studies: Microbiology Studies 06/11/18 17:30 Blood Culture - Preliminary Blood-Venous NO GROWTH AFTER 3 DAYS 06/11/18 17:15 Blood Culture - Preliminary Blood-Venous NO GROWTH AFTER 3 DAYS Lab Studies 06/15/18 06/15/18 Range/Units 04:18 04:18 WBC 8.6 (4.8-10.8) K/uL RBC 3.30 L (4.40-5.90) Mil/uL Hgb 9.0 L (12.0-18.0) g/dL Hct 27.1 L (35.0-51.0) % MCV 82.3 (80.0-94.0) fl MCH 27.4 (27.0-31.0) pg MCHC 33.3 (33.0-37.0) g/dL RDW 17.8 H (11.5-14.5) % Plt Count 310 (130-400) K/uL Sodium 138 (132-148) mmol/l Potassium 4.4 (3.6-5.0) MMOL/L Chloride 95 L (98-107) mmol/L Carbon Dioxide 32 H (22-30) mmol/L Anion Gap 15 (10-20) BUN 24 H (9-20) mg/dl Creatinine 0.6 L (0.8-1.5) mg/dl Est GFR ( Amer) > 60 Est GFR (Non-Af Amer) > 60 Random Glucose 156 H (75-110) mg/dL Calcium 8.9 (8.4-10.2) mg/dL Laboratory Results - last 24 hr 06/15/18 06/15/18 04:18 04:18 WBC 8.6 RBC 3.30 L Hgb 9.0 L Hct 27.1 L MCV 82.3 MCH 27.4 MCHC 33.3 RDW 17.8 H Plt Count 310 Sodium 138 Potassium 4.4 Chloride 95 L Carbon Dioxide 32 H Anion Gap 15 BUN 24 H Creatinine 0.6 L Est GFR ( Amer) > 60 Est GFR (Non-Af Amer) > 60 Random Glucose 156 H Calcium 8.9 Fingerstick Blood Sugar Results: 159 Critical Care Progress Note - Nutrition Nutrition: Nutrition Category Date Time Status NPO Diet [DIET] Diets 06/09/18 Dinner Active Assessment/Plan (1) Acute respiratory failure with hypoxia Current Visit: Yes Status: Acute Priority: High Comment: ICU coursed for failure to extubate, and Patient S/P trach last week Vent weaning in progress, Tolerating Trach Colar Aggressive pulmonary toilet, chest PT, suctioning (2) Severe sepsis Current Visit: Yes Status: Acute Priority: High Comment: Continue Antibiotics with IV Diflucan 100 Mg IVPB DAILY and Meropenem 1 gm IVPB Q8 KEN Most recent Blood C/S 05/31 and 06/11 negative (3) Aspiration pneumonia Current Visit: Yes Status: Acute Priority: High (4) Hyponatremia Current Visit: Yes Status: Resolved Priority: Medium (5) Atrial fibrillation with RVR Current Visit: Yes Status: Resolved (6) Dementia Current Visit: No Status: Chronic Priority: Medium - Assessment and Plan (Free Text) Assessment: DVT proph - lovenox GI proph - protonix Code status - DNR
--- NOTE | 2018-06-15 14:20 | CP.PCM.PN ---
Subjective - Date & Time of Evaluation Date of Evaluation: 06/15/18 Time of Evaluation: 09:40 - Subjective Subjective: F/U Respiratory Failure. Tracheostomy. Pt with minimal response to tactile stimuli, on Tracheostomy, Trach Collar and Peg-tube. Objective - Vital Signs/Intake and Output Vital Signs (last 24 hours): Temp Pulse Resp BP Pulse Ox 97.5 F L 71 14 147/74 99 06/15/18 12:00 06/15/18 12:00 06/15/18 12:00 06/15/18 12:00 06/15/18 12:00 Intake and Output: 06/15/18 06/15/18 06:59 18:59 Intake Total 1340 720 Output Total 850 Balance 490 720 - Medications Medications: Current Medications Acetaminophen (Tylenol 650 Mg Supp) 650 mg [place] Q4 PRN PRN Reason: Fever >100.4 F Acetaminophen (Tylenol 650mg/20.3ml Solution Ud) 650 mg PO Q4 PRN PRN Reason: for temp 100.4 and above Last Admin: 06/11/18 20:23 Dose: 650 mg Alendronate Sodium (Fosamax) 70 mg PO FR [facility] Last Admin: 05/21/18 10:29 Dose: 70 mg Calcium Carbonate (Oscal) 500 mg PO BID [facility] Last Admin: 05/21/18 10:26 Dose: 500 mg Cholecalciferol (Vitamin D) 1,000 intlu PO BID [facility] Last Admin: 05/21/18 10:27 Dose: 1,000 intlu Dextrose (Dextrose 50% Inj) 0 ml IV STAT PRN; Protocol PRN Reason: Hypoglycemia Protocol Dextrose (Glutose 15) 0 gm PO ONCE PRN; Protocol PRN Reason: Hypoglycemia Protocol Donepezil HCl (Aricept) 5 mg PO HS [facility] Last Admin: 05/20/18 21:28 Dose: 5 mg Glucagon (Glucagen Diagnostic Kit) 0 mg IM STAT PRN; Protocol PRN Reason: Hypoglycemia Protocol Fluconazole (Diflucan Iv 100 Mg/50 Ml Ns) 50 mls @ 50 mls/hr IVPB DAILY [facility]; Protocol Last Admin: 06/15/18 08:45 Dose: 50 mls/hr Insulin Human Lispro (Humalog) 0 units SC Q6H [facility]; Protocol Last Admin: 06/15/18 12:59 Dose: Not Given Memantine (Namenda) 5 mg PO Q12 [facility] Last Admin: 05/21/18 10:25 Dose: 5 mg Multivitamins/Minerals (Therapeutic-M Tab) 1 tab PO DAILY [facility] Last Admin: 05/21/18 10:27 Dose: 1 tab Pantoprazole Sodium (Protonix Susp) 40 mg PEG DAILY [facility] Last Admin: 06/15/18 08:45 Dose: 40 mg Senna/Docusate Sodium (Senokot S 50 Mg-8.6 Mg) 1 tab PO HS [facility] Last Admin: 05/20/18 21:29 Dose: 1 tab Tamsulosin HCl (Flomax) 0.4 mg PO QPM [facility] Last Admin: 05/20/18 17:19 Dose: 0.4 mg - Labs Labs: 06/15/18 04:18 06/15/18 04:18 PT 14.4 Seconds (9.8-13.1) H 06/10/18 04:50 INR 1.3 06/10/18 04:50 APTT 32.4 Seconds (25.6-37.1) 06/10/18 04:50 - Constitutional Appears: Chronically Ill - Head Exam Head Exam: NORMAL INSPECTION - Eye Exam Eye Exam: PERRL - ENT Exam ENT Exam: Normal Exam - Neck Exam Additional comments: Tracheostomy, Trach Collar. - Respiratory Exam Respiratory Exam: Decreased Breath Sounds (at bases) - Cardiovascular Exam Cardiovascular Exam: REGULAR RHYTHM - GI/Abdominal Exam GI & Abdominal Exam: Soft Additional comments: Peg tube - Extremities Exam Extremities Exam: Normal Inspection - Back Exam Additional comments: Sacral ulcer unstageable - Neurological Exam Additional comments: Minimal response to tatile stimuli, open eyes at times. - Skin Skin Exam: Warm Assessment and Plan (1) Aspiration pneumonia Status: Acute (2) Tracheostomy in place Status: Acute (3) S/P percutaneous endoscopic gastrostomy (PEG) tube placement Status: Acute (4) E. coli UTI Status: Resolved (5) Fever Status: Resolved (6) Sepsis syndrome Status: Acute (7) Hypoxemia Status: Chronic (8) Dementia Status: Chronic (9) HTN (hypertension) Status: Chronic (10) DMII (diabetes mellitus, type 2) Status: Chronic - Assessment and Plan (Free Text) Plan: Continue current Tx, transfer to [facility] today. Critical care time: 31 min.
[2018-06-16 05:45] LABS: HEMOGLOBIN 9.4 g/dL (12.0-18.0); MEAN CELL VOLUME 83.1 fl (80.0-94.0); MEAN CORPUSCULAR HEMOGLOBIN 27.7 pg (27.0-31.0); MEAN CORPUSCULAR HGB CONC 33.4 g/dL (33.0-37.0); RBC 3.39 Mil/uL (4.40-5.90); RED CELL DISTRIBUTION WIDTH 18.2 % (11.5-14.5); WHITE BLOOD COUNT 8.2 K/uL (4.8-10.8)
[2018-06-16 06:03] LABS: ALB/GLOB RATIO 0.8 (1.0-2.1); ALBUMIN 3.3 g/dL (3.5-5.0); ALT/SGPT 22 U/L (21-72); AST/SGOT 53 U/L (17-59); BLOOD UREA NITROGEN 30 mg/dl (9-20); CALCIUM 9.1 mg/dL (8.4-10.2); GFR NON-AFRICAN AMERICAN > 60
[2018-06-16] MEDS: Insulin Lispro (humaLOG) 100 Units/ml Inj SC SCH ×3 (06:14→11:58)
[2018-06-16] MEDS: Fluconazole IV 100mg/50 ml NS 50 ML IVPB SCH (08:54)
[2018-06-16] MEDS: Pantoprazole 40 mg Susp UD PEG SCH (08:57)
--- NOTE | 2018-06-16 08:57 | CP.CCUPN ---
CCU Subjective - Physician Review Subjective (Free Text): No change in overall status, observed to open eyes spontaneously, but not following any commands nor is he otherwise interactive, nor blinks to confrontation. Remains off MV, via Trach on 40% TC oxygen, breathing 19, SPO2 98%. No high FEVER spikes last 3 days. SBPs 120-130s, HR 70-80s sinus. Other vitals and I/O's reviewed. Fluid balance 1.4 L positive last 24H. On PEG feeds with Glucerna (goal at 70ml/hr). ROS: No other pertinent negs or positives on 10+ system review obtainable due to lethargic status. PMSFH: All other Nursing and physician documentation reviewed to date; no new pertinent info noted relevant to current medical problems. EXAM- HEENT: no icterus, no gaze preference, pupils reactive, no nystagmus NECK: no JVD visible, supple, carotids equal upstroke bilat/no bruit, trach stoma intact, no discharge or tenderness CHEST: decreased BS at the bases, no wheezes audible HEART: regular, distant, S1S2, no rubs ABD: soft, no distension, no focal tenderness, no tympany, no guarding, no organomegaly, BS hypoactive. PEG intact. EXT: + LE edema, no mottling; no calf tenderness or palpable cords, distal pulses intact and symmetrical, no cyanosis, LUE midline catheter placed yesterday. NEURO: + tone, withdraws to pain x 4. SKIN: no rashes, warm and dry LABS: WBC= 8.2 HGB= 9.4 PLTs= 293K Na= 138 K= 5.3 CL= 94 HCO3= 32 BUN/Cr= 30/0.4 BS= 147 Last CXR done on 06/12: my interp) ETT position high above brianne, persistent R sided infiltrates, romain RUL. IMPRESSION / MAJOR PROBLEMS NOW: 1. Acute hypoxemic resp failure 2 Bilateral pneumonia, s/p Trach 2. s/p Severe Sepsis with Shock 2 #1, r/o Bacteremia, + E.coli UTI 3. s/p Paroxysmal A Fib with RVR 4. s/p Hyponatremia with Azotemia/ Dehydration 5. h/o Dementia PLAN: 1. Of MV, ready for halfway placmenet. 2. Has completed Abx / Antifungal coverage with Vanco/ Stacey/ Diflucan as directed by ID. CXR as of 06/12/18, still lagging behind patient, R-sided infiltrates persist. Would check repeat film. 3. Watch K levels, renal function stable. 4. roasterman placement contemplated, otherwise stable for transfer to [facility] [place] bed.
--- NOTE | 2018-06-16 12:32 | CP.PCM.PN ---
Subjective - Date & Time of Evaluation Date of Evaluation: 06/16/18 Time of Evaluation: 11:50 - Subjective Subjective: F/U respiratory failure. minimal response to tactil stimuli Objective - Vital Signs/Intake and Output Vital Signs (last 24 hours): Temp Pulse Resp BP Pulse Ox 99.7 F H 77 22 128/65 99 06/16/18 12:00 06/16/18 12:00 06/16/18 12:00 06/16/18 12:00 06/16/18 12:00 Intake and Output: 06/16/18 06/16/18 06:59 18:59 Intake Total 1370 280 Output Total 750 Balance 620 280 - Medications Medications: Current Medications Acetaminophen (Tylenol 650 Mg Supp) 650 mg [place] Q4 PRN PRN Reason: Fever >100.4 F Acetaminophen (Tylenol 650mg/20.3ml Solution Ud) 650 mg PO Q4 PRN PRN Reason: for temp 100.4 and above Last Admin: 06/11/18 20:23 Dose: 650 mg Alendronate Sodium (Fosamax) 70 mg PO FR [facility] Last Admin: 05/21/18 10:29 Dose: 70 mg Calcium Carbonate (Oscal) 500 mg PO BID [facility] Last Admin: 05/21/18 10:26 Dose: 500 mg Cholecalciferol (Vitamin D) 1,000 intlu PO BID [facility] Last Admin: 05/21/18 10:27 Dose: 1,000 intlu Dextrose (Dextrose 50% Inj) 0 ml IV STAT PRN; Protocol PRN Reason: Hypoglycemia Protocol Dextrose (Glutose 15) 0 gm PO ONCE PRN; Protocol PRN Reason: Hypoglycemia Protocol Donepezil HCl (Aricept) 5 mg PO HS [facility] Last Admin: 05/20/18 21:28 Dose: 5 mg Glucagon (Glucagen Diagnostic Kit) 0 mg IM STAT PRN; Protocol PRN Reason: Hypoglycemia Protocol Fluconazole (Diflucan Iv 100 Mg/50 Ml Ns) 50 mls @ 50 mls/hr IVPB DAILY [facility]; Protocol Last Admin: 06/16/18 08:54 Dose: 50 mls/hr Insulin Human Lispro (Humalog) 0 units SC Q6H [facility]; Protocol Last Admin: 06/16/18 11:58 Dose: 2 units Memantine (Namenda) 5 mg PO Q12 [facility] Last Admin: 05/21/18 10:25 Dose: 5 mg Multivitamins/Minerals (Therapeutic-M Tab) 1 tab PO DAILY [facility] Last Admin: 05/21/18 10:27 Dose: 1 tab Pantoprazole Sodium (Protonix Susp) 40 mg PEG DAILY [facility] Last Admin: 06/16/18 08:57 Dose: 40 mg Senna/Docusate Sodium (Senokot S 50 Mg-8.6 Mg) 1 tab PO HS [facility] Last Admin: 05/20/18 21:29 Dose: 1 tab Tamsulosin HCl (Flomax) 0.4 mg PO QPM [facility] Last Admin: 05/20/18 17:19 Dose: 0.4 mg - Labs Labs: 06/16/18 05:05 06/16/18 05:05 PT 14.4 Seconds (9.8-13.1) H 06/10/18 04:50 INR 1.3 06/10/18 04:50 APTT 32.4 Seconds (25.6-37.1) 06/10/18 04:50 - Constitutional Appears: Chronically Ill - Head Exam Head Exam: NORMAL INSPECTION - Eye Exam Eye Exam: PERRL - ENT Exam ENT Exam: Normal Exam - Neck Exam Additional comments: Tracheostomy, Trach collar - Respiratory Exam Respiratory Exam: Decreased Breath Sounds (at bases) - Cardiovascular Exam Cardiovascular Exam: REGULAR RHYTHM - GI/Abdominal Exam GI & Abdominal Exam: Soft Additional comments: Peg tube - Extremities Exam Extremities Exam: Normal Inspection - Back Exam Additional comments: Scar L-S - Neurological Exam Additional comments: Minimal response to tactile stimuli, open eyes at times. - Skin Skin Exam: Warm Assessment and Plan (1) Aspiration pneumonia Status: Acute (2) Tracheostomy in place Status: Acute (3) S/P percutaneous endoscopic gastrostomy (PEG) tube placement Status: Acute (4) E. coli UTI Status: Resolved (5) Fever Status: Resolved (6) Sepsis syndrome Status: Acute (7) Hypoxemia Status: Chronic (8) Dementia Status: Chronic (9) HTN (hypertension) Status: Chronic (10) DMII (diabetes mellitus, type 2) Status: Chronic - Assessment and Plan (Free Text) Plan: completed previous Abt Tx, on Diflucan IV, Pt,s son apparently does not want to transfer Pt's to LTAC Critical care time: 31 min.
[2018-06-17 05:11] LABS: HEMOGLOBIN 9.5 g/dL (12.0-18.0); MEAN CELL VOLUME 84.1 fl (80.0-94.0); MEAN CORPUSCULAR HEMOGLOBIN 27.2 pg (27.0-31.0); MEAN CORPUSCULAR HGB CONC 32.4 g/dL (33.0-37.0); RBC 3.5 Mil/uL (4.40-5.90); RED CELL DISTRIBUTION WIDTH 18.4 % (11.5-14.5); WHITE BLOOD COUNT 8.4 K/uL (4.8-10.8)
[2018-06-17 05:29] LABS: ALB/GLOB RATIO 0.7 (1.0-2.1); ALT/SGPT 21 U/L (21-72); AST/SGOT 23 U/L (17-59); CALCIUM 9.2 mg/dL (8.4-10.2); GFR NON-AFRICAN AMERICAN > 60
[2018-06-17 05:34] LABS: BLOOD UREA NITROGEN 31 mg/dl (9-20)
[2018-06-17] MEDS: Insulin Lispro (humaLOG) 100 Units/ml Inj SC SCH ×3 (06:10→11:52)
[2018-06-17] MEDS: Fluconazole IV 100mg/50 ml NS 50 ML IVPB SCH (09:00)
[2018-06-17] MEDS: Pantoprazole 40 mg Susp UD PEG SCH (09:05)
--- NOTE | 2018-06-17 11:47 | CP.PCM.PN ---
Subjective - Date & Time of Evaluation Date of Evaluation: 06/17/18 Time of Evaluation: 11:47 - Subjective Subjective: ID Note- Pt. seen and examined today in ICU. does not follow any commands. remains on TC. no new events overnight. Objective - Vital Signs/Intake and Output Vital Signs (last 24 hours): Temp Pulse Resp BP Pulse Ox 98.2 F 79 20 137/72 100 06/17/18 09:00 06/17/18 09:00 06/17/18 09:00 06/17/18 09:00 06/17/18 09:00 Intake and Output: 06/17/18 06/17/18 06:59 18:59 Intake Total 1364 338 Output Total 700 Balance 664 338 - Medications Medications: Current Medications Acetaminophen (Tylenol 650 Mg Supp) 650 mg [place] Q4 PRN PRN Reason: Fever >100.4 F Acetaminophen (Tylenol 650mg/20.3ml Solution Ud) 650 mg PO Q4 PRN PRN Reason: for temp 100.4 and above Last Admin: 06/11/18 20:23 Dose: 650 mg Alendronate Sodium (Fosamax) 70 mg PO FR [facility] Last Admin: 05/21/18 10:29 Dose: 70 mg Calcium Carbonate (Oscal) 500 mg PO BID [facility] Last Admin: 05/21/18 10:26 Dose: 500 mg Cholecalciferol (Vitamin D) 1,000 intlu PO BID [facility] Last Admin: 05/21/18 10:27 Dose: 1,000 intlu Dextrose (Dextrose 50% Inj) 0 ml IV STAT PRN; Protocol PRN Reason: Hypoglycemia Protocol Dextrose (Glutose 15) 0 gm PO ONCE PRN; Protocol PRN Reason: Hypoglycemia Protocol Donepezil HCl (Aricept) 5 mg PO HS [facility] Last Admin: 05/20/18 21:28 Dose: 5 mg Glucagon (Glucagen Diagnostic Kit) 0 mg IM STAT PRN; Protocol PRN Reason: Hypoglycemia Protocol Fluconazole (Diflucan Iv 100 Mg/50 Ml Ns) 50 mls @ 50 mls/hr IVPB DAILY [facility]; Protocol Last Admin: 06/17/18 09:00 Dose: 50 mls/hr Insulin Human Lispro (Humalog) 0 units SC Q6H [facility]; Protocol Last Admin: 06/17/18 06:10 Dose: 2 units Memantine (Namenda) 5 mg PO Q12 [facility] Last Admin: 05/21/18 10:25 Dose: 5 mg Multivitamins/Minerals (Therapeutic-M Tab) 1 tab PO DAILY [facility] Last Admin: 05/21/18 10:27 Dose: 1 tab Pantoprazole Sodium (Protonix Susp) 40 mg PEG DAILY [facility] Last Admin: 06/17/18 09:05 Dose: 40 mg Senna/Docusate Sodium (Senokot S 50 Mg-8.6 Mg) 1 tab PO HS [facility] Last Admin: 05/20/18 21:29 Dose: 1 tab Tamsulosin HCl (Flomax) 0.4 mg PO QPM [facility] Last Admin: 05/20/18 17:19 Dose: 0.4 mg - Labs Labs: - Additional Findings Additional findings: - Constitutional Appears: Chronically Ill - ENT Exam Additional comments: trached and on TC now - Respiratory Exam Additional comments: breath sounds heard - Cardiovascular Exam Cardiovascular Exam: , +S1, +S2 RRR - GI/Abdominal Exam GI & Abdominal Exam: Soft, Normal Bowel Sounds Additional comments: ND, NT - Extremities Exam Extremities Exam: Normal Inspection - Neurological Exam Additional comments: unresponsive Laboratory Results - last 72 hr 06/14/18 06/15/18 06/15/18 16:19 01:15 04:18 WBC 8.6 RBC 3.30 L Hgb 9.0 L Hct 27.1 L MCV 82.3 MCH 27.4 MCHC 33.3 RDW 17.8 H Plt Count 310 Sodium Potassium Chloride Carbon Dioxide Anion Gap BUN Creatinine Est GFR ( Amer) Est GFR (Non-Af Amer) POC Glucose (mg/dL) 169 H 145 H Random Glucose Calcium Total Bilirubin AST ALT Alkaline Phosphatase Total Protein Albumin Globulin Albumin/Globulin Ratio 06/15/18 06/15/18 06/15/18 04:18 07:10 12:46 WBC RBC Hgb Hct MCV MCH MCHC RDW Plt Count Sodium 138 Potassium 4.4 Chloride 95 L Carbon Dioxide 32 H Anion Gap 15 BUN 24 H Creatinine 0.6 L Est GFR ( Amer) > 60 Est GFR (Non-Af Amer) > 60 POC Glucose (mg/dL) 159 H 128 H Random Glucose 156 H Calcium 8.9 Total Bilirubin AST ALT Alkaline Phosphatase Total Protein Albumin Globulin Albumin/Globulin Ratio 06/15/18 06/15/18 06/16/18 16:21 21:08 04:56 WBC RBC Hgb Hct MCV MCH MCHC RDW Plt Count Sodium Potassium Chloride Carbon Dioxide Anion Gap BUN Creatinine Est GFR ( Amer) Est GFR (Non-Af Amer) POC Glucose (mg/dL) 152 H 140 H 171 H Random Glucose Calcium Total Bilirubin AST ALT Alkaline Phosphatase Total Protein Albumin Globulin Albumin/Globulin Ratio 06/16/18 06/16/18 06/16/18 05:05 05:05 11:17 WBC 8.2 RBC 3.39 L Hgb 9.4 L Hct 28.2 L MCV 83.1 MCH 27.7 MCHC 33.4 RDW 18.2 H Plt Count 293 Sodium 138 Potassium 5.3 H Chloride 94 L Carbon Dioxide 32 H Anion Gap 17 BUN 30 H Creatinine 0.4 L Est GFR ( Amer) > 60 Est GFR (Non-Af Amer) > 60 POC Glucose (mg/dL) 153 H Random Glucose 147 H Calcium 9.1 Total Bilirubin 0.8 AST 53 ALT 22 Alkaline Phosphatase 94 Total Protein 7.4 Albumin 3.3 L Globulin 4.2 H Albumin/Globulin Ratio 0.8 L 06/16/18 06/16/18 06/17/18 16:28 20:51 04:32 WBC RBC Hgb Hct MCV MCH MCHC RDW Plt Count Sodium Potassium Chloride Carbon Dioxide Anion Gap BUN Creatinine Est GFR ( Amer) Est GFR (Non-Af Amer) POC Glucose (mg/dL) 141 H 152 H 167 H Random Glucose Calcium Total Bilirubin AST ALT Alkaline Phosphatase Total Protein Albumin Globulin Albumin/Globulin Ratio 06/17/18 06/17/18 06/17/18 05:00 05:00 11:48 WBC 8.4 RBC 3.50 L Hgb 9.5 L Hct 29.4 L MCV 84.1 MCH 27.2 MCHC 32.4 L RDW 18.4 H Plt Count 288 Sodium 139 Potassium 4.5 Chloride 99 Carbon Dioxide 33 H Anion Gap 12 BUN 31 H Creatinine 0.6 L Est GFR ( Amer) > 60 Est GFR (Non-Af Amer) > 60 POC Glucose (mg/dL) 157 H Random Glucose 154 H Calcium 9.2 Total Bilirubin 0.4 AST 23 ALT 21 Alkaline Phosphatase 98 Total Protein 7.2 Albumin 3.0 L Globulin 4.3 H Albumin/Globulin Ratio 0.7 L Microbiology 06/11/18 17:30 Blood-Venous Blood Culture - Final NO GROWTH AFTER 5 DAYS 06/11/18 17:30 Blood-Venous Gram Stain - Final TEST NOT PERFORMED 06/11/18 17:15 Blood-Venous Blood Culture - Final NO GROWTH AFTER 5 DAYS 06/11/18 17:15 Blood-Venous Gram Stain - Final TEST NOT PERFORMED 05/31/18 12:34 Blood-Venous Blood Culture - Final NO GROWTH AFTER 5 DAYS 05/31/18 12:34 Blood-Venous Gram Stain - Final TEST NOT PERFORMED 05/31/18 12:44 Blood-Venous Blood Culture - Final NO GROWTH AFTER 5 DAYS 05/31/18 12:44 Blood-Venous Gram Stain - Final TEST NOT PERFORMED 05/28/18 05:00 Bronchial Washings Bronchial Culture - Final Renee Albicans 05/27/18 21:00 Blood-Venous Blood Culture - Final NO GROWTH AFTER 5 DAYS 05/27/18 21:00 Blood-Venous Gram Stain - Final TEST NOT PERFORMED 05/27/18 21:05 Blood-Venous Blood Culture - Final NO GROWTH AFTER 5 DAYS 05/27/18 21:05 Blood-Venous Gram Stain - Final TEST NOT PERFORMED 05/26/18 14:13 Blood-Venous Blood Culture - Final NO GROWTH AFTER 5 DAYS 05/26/18 14:13 Blood-Venous Gram Stain - Final TEST NOT PERFORMED 05/27/18 21:00 Trachasp Gram Stain - Final 05/27/18 21:00 Trachasp Sputum Culture - Final Yeast Species 05/24/18 14:15 Blood-Venous Blood Culture - Final NO GROWTH AFTER 5 DAYS 05/24/18 14:15 Blood-Venous Gram Stain - Final TEST NOT PERFORMED 05/24/18 14:00 Blood-Venous Blood Culture - Final NO GROWTH AFTER 5 DAYS 05/24/18 14:00 Blood-Venous Gram Stain - Final TEST NOT PERFORMED 05/27/18 21:00 Urine,Catheterized Urine Culture - Final No Growth (<1,000 CFU/ML) 05/24/18 15:00 Sputum Gram Stain - Final 05/24/18 15:00 Sputum Sputum Culture - Final Yeast Species 05/24/18 09:35 Urine,Catheterized Urine Culture - Final No Growth (<1,000 CFU/ML) 05/20/18 15:31 Blood-Venous Blood Culture - Final NO GROWTH AFTER 5 DAYS 05/20/18 15:31 Blood-Venous Gram Stain - Final TEST NOT PERFORMED 05/20/18 15:42 Blood-Venous Blood Culture - Final NO GROWTH AFTER 5 DAYS 05/20/18 15:42 Blood-Venous Gram Stain - Final TEST NOT PERFORMED 05/24/18 09:35 Naris MRSA Culture (Admit) - Final MRSA NOT DETECTED 05/21/18 16:57 Sputum Induced Gram Stain - Final 05/21/18 16:57 Sputum Induced Sputum Culture - Final Yeast Species 05/12/18 07:50 Blood Blood Culture - Final NO GROWTH AFTER 5 DAYS 05/12/18 07:50 Blood Gram Stain - Final TEST NOT PERFORMED 05/12/18 Unknown Blood Blood Culture - Final NO GROWTH AFTER 5 DAYS 05/12/18 Unknown Blood Gram Stain - Final TEST NOT PERFORMED 05/12/18 08:40 Urine,Catheterized Urine Culture - Final Escherichia Coli Assessment and Plan (1) Sepsis syndrome Status: Acute (2) Fever Status: Resolved (3) Hypoxemia Status: Chronic (4) Aspiration pneumonia Status: Acute - Assessment and Plan (Free Text) Assessment: A/P- 82 year old [place] resident male with dementia, admitted with fever initially and had UTI and ? asp pneumonia and was treated with IV antibiotiocs and was fever free and normal wbc and doing ok but few days ago had aspiration pneumonia and hypoxemic and rapid a.fib and is s/p intubation and in ICU. s/p trach and peg. afebrile ON TC . normal wbc count. admission UA- Pos LE, neg Nitrates admission urine cx- E.Coli pansensitive- treated for this already blood cx- neg x 8 sputum cx- yeast BAL cx- C.Albicans PLan- has completed 20 days of IV meropnem and fluconazole. advise to d/c these today. completed 10 days of IV empiric vanco. critical care time spent 30 minutes.
--- NOTE | 2018-06-17 12:53 | PQF ---
PROVIDER RESPONSE TEXT: Sacral pressure ulcer : Small eschar. REVIEWER QUERY TEXT: Conflicting Documentation Clarification Please clarify the current Site(s) and Stage(s) of the pressure ulcer(s). --Versus: Ruled out -- OR: Other explanation of clinical findings 06/08 Wound RN Note tab: Sacral wound DTI has progressed to stable eschar. 06/14 Attending progress note:sacral ulcer unstageable 06/14 Wound RN Note tab: Sacral small eschar 06/14 Staff nurse: Pressure Ulcer Assessment :Right. Back: Partial thickness loss of dermis presenting as a shallow ulcer Sacrum: Full thickness tissue loss The patient's Clinical Indicators include: ----- Query created by: Brisa Pizano on 06/15/2018 10:38 AM Electronically signed by: Ramrio Hernández MD 06/17/2018 12:50 PM
--- NOTE | 2018-06-17 15:37 | CP.PCM.PN ---
Subjective - Date & Time of Evaluation Date of Evaluation: 06/17/18 Time of Evaluation: 09:00 - Subjective Subjective: F/U Respiratory failure minimal response to tactil stimuli Objective - Vital Signs/Intake and Output Vital Signs (last 24 hours): Temp Pulse Resp BP Pulse Ox 97.7 F 77 20 144/77 100 06/17/18 12:00 06/17/18 12:00 06/17/18 12:00 06/17/18 12:00 06/17/18 12:00 Intake and Output: 06/17/18 06/17/18 06:59 18:59 Intake Total 1364 728 Output Total 700 Balance 664 728 - Medications Medications: Current Medications Acetaminophen (Tylenol 650 Mg Supp) 650 mg [place] Q4 PRN PRN Reason: Fever >100.4 F Acetaminophen (Tylenol 650mg/20.3ml Solution Ud) 650 mg PO Q4 PRN PRN Reason: for temp 100.4 and above Last Admin: 06/11/18 20:23 Dose: 650 mg Alendronate Sodium (Fosamax) 70 mg PO FR [facility] Last Admin: 05/21/18 10:29 Dose: 70 mg Calcium Carbonate (Oscal) 500 mg PO BID [facility] Last Admin: 05/21/18 10:26 Dose: 500 mg Cholecalciferol (Vitamin D) 1,000 intlu PO BID [facility] Last Admin: 05/21/18 10:27 Dose: 1,000 intlu Dextrose (Dextrose 50% Inj) 0 ml IV STAT PRN; Protocol PRN Reason: Hypoglycemia Protocol Dextrose (Glutose 15) 0 gm PO ONCE PRN; Protocol PRN Reason: Hypoglycemia Protocol Donepezil HCl (Aricept) 5 mg PO HS [facility] Last Admin: 05/20/18 21:28 Dose: 5 mg Glucagon (Glucagen Diagnostic Kit) 0 mg IM STAT PRN; Protocol PRN Reason: Hypoglycemia Protocol Insulin Human Lispro (Humalog) 0 units SC Q6H [facility]; Protocol Last Admin: 06/17/18 11:52 Dose: 2 units Memantine (Namenda) 5 mg PO Q12 [facility] Last Admin: 05/21/18 10:25 Dose: 5 mg Multivitamins/Minerals (Therapeutic-M Tab) 1 tab PO DAILY [facility] Last Admin: 05/21/18 10:27 Dose: 1 tab Pantoprazole Sodium (Protonix Susp) 40 mg PEG DAILY [facility] Last Admin: 06/17/18 09:05 Dose: 40 mg Senna/Docusate Sodium (Senokot S 50 Mg-8.6 Mg) 1 tab PO HS [facility] Last Admin: 05/20/18 21:29 Dose: 1 tab Tamsulosin HCl (Flomax) 0.4 mg PO QPM [facility] Last Admin: 05/20/18 17:19 Dose: 0.4 mg - Labs Labs: 06/17/18 05:00 06/17/18 05:00 PT 14.4 Seconds (9.8-13.1) H 06/10/18 04:50 INR 1.3 06/10/18 04:50 APTT 32.4 Seconds (25.6-37.1) 06/10/18 04:50 - Constitutional Appears: Chronically Ill - Head Exam Head Exam: NORMAL INSPECTION - Eye Exam Eye Exam: PERRL - ENT Exam ENT Exam: Normal Exam - Neck Exam Additional comments: Tracheostomy, Trach Collar - Respiratory Exam Respiratory Exam: Decreased Breath Sounds (at bases) - Cardiovascular Exam Cardiovascular Exam: REGULAR RHYTHM - GI/Abdominal Exam GI & Abdominal Exam: Soft Additional comments: Peg tube - Extremities Exam Extremities Exam: Normal Inspection - Back Exam Additional comments: Scar L-S - Neurological Exam Additional comments: Minimal response to tactile stimuli, open eyes at times. - Skin Skin Exam: Warm Assessment and Plan (1) Aspiration pneumonia Status: Acute (2) Tracheostomy in place Status: Acute (3) S/P percutaneous endoscopic gastrostomy (PEG) tube placement Status: Acute (4) E. coli UTI Status: Resolved (5) Fever Status: Resolved (6) Sepsis syndrome Status: Acute (7) Hypoxemia Status: Chronic (8) Dementia Status: Chronic (9) HTN (hypertension) Status: Chronic (10) DMII (diabetes mellitus, type 2) Status: Chronic - Assessment and Plan (Free Text) Plan: Diflucan DC, Trach collar, BS control, Pt's son refused LTAC, Hospice eval.
[2018-06-18 05:56] LABS: HEMOGLOBIN 9.3 g/dL (12.0-18.0); MEAN CORPUSCULAR HEMOGLOBIN 27.7 pg (27.0-31.0); MEAN CORPUSCULAR HGB CONC 33.3 g/dL (33.0-37.0); RBC 3.37 Mil/uL (4.40-5.90); RED CELL DISTRIBUTION WIDTH 18.9 % (11.5-14.5); WHITE BLOOD COUNT 8.6 K/uL (4.8-10.8)
[2018-06-18 06:11] LABS: ALB/GLOB RATIO 0.8 (1.0-2.1); ALBUMIN 3.3 g/dL (3.5-5.0); ALT/SGPT 26 U/L (21-72); AST/SGOT 25 U/L (17-59); BLOOD UREA NITROGEN 30 mg/dl (9-20); CALCIUM 9.2 mg/dL (8.4-10.2); GFR NON-AFRICAN AMERICAN > 60
[2018-06-18] MEDS: Pantoprazole 40 mg Susp UD PEG SCH (08:34)
[2018-06-18] MEDS: Insulin Lispro (humaLOG) 100 Units/ml Inj SC SCH ×2 (12:40→20:38)
--- NOTE | 2018-06-18 14:37 | CP.PCM.PN ---
Subjective - Date & Time of Evaluation Date of Evaluation: 06/18/18 Time of Evaluation: 10:50 - Subjective Subjective: F/U Respiratory Failure Minimal response to tactile stimuli., on Trach Collar. Objective - Vital Signs/Intake and Output Vital Signs (last 24 hours): Temp Pulse Resp BP Pulse Ox 97.7 F 92 H 16 125/70 100 06/18/18 13:00 06/18/18 13:00 06/18/18 13:00 06/18/18 13:00 06/18/18 13:00 Intake and Output: 06/18/18 06/18/18 06:59 18:59 Intake Total 1364 682 Output Total 350 Balance 1014 682 - Medications Medications: Current Medications Acetaminophen (Tylenol 650 Mg Supp) 650 mg [place] Q4 PRN PRN Reason: Fever >100.4 F Acetaminophen (Tylenol 650mg/20.3ml Solution Ud) 650 mg PO Q4 PRN PRN Reason: for temp 100.4 and above Last Admin: 06/11/18 20:23 Dose: 650 mg Alendronate Sodium (Fosamax) 70 mg PO FR [facility] Last Admin: 05/21/18 10:29 Dose: 70 mg Calcium Carbonate (Oscal) 500 mg PO BID [facility] Last Admin: 05/21/18 10:26 Dose: 500 mg Cholecalciferol (Vitamin D) 1,000 intlu PO BID [facility] Last Admin: 05/21/18 10:27 Dose: 1,000 intlu Dextrose (Dextrose 50% Inj) 0 ml IV STAT PRN; Protocol PRN Reason: Hypoglycemia Protocol Dextrose (Glutose 15) 0 gm PO ONCE PRN; Protocol PRN Reason: Hypoglycemia Protocol Donepezil HCl (Aricept) 5 mg PO HS [facility] Last Admin: 05/20/18 21:28 Dose: 5 mg Glucagon (Glucagen Diagnostic Kit) 0 mg IM STAT PRN; Protocol PRN Reason: Hypoglycemia Protocol Insulin Human Lispro (Humalog) 0 units SC Q6H [facility]; Protocol Last Admin: 06/18/18 12:40 Dose: 2 units Memantine (Namenda) 5 mg PO Q12 [facility] Last Admin: 05/21/18 10:25 Dose: 5 mg Multivitamins/Minerals (Therapeutic-M Tab) 1 tab PO DAILY [facility] Last Admin: 05/21/18 10:27 Dose: 1 tab Pantoprazole Sodium (Protonix Susp) 40 mg PEG DAILY [facility] Last Admin: 06/18/18 08:34 Dose: 40 mg Senna/Docusate Sodium (Senokot S 50 Mg-8.6 Mg) 1 tab PO HS [facility] Last Admin: 05/20/18 21:29 Dose: 1 tab Tamsulosin HCl (Flomax) 0.4 mg PO QPM [facility] Last Admin: 05/20/18 17:19 Dose: 0.4 mg - Labs Labs: 06/18/18 05:20 06/18/18 05:20 PT 14.4 Seconds (9.8-13.1) H 06/10/18 04:50 INR 1.3 06/10/18 04:50 APTT 32.4 Seconds (25.6-37.1) 06/10/18 04:50 - Constitutional Appears: Chronically Ill - Head Exam Head Exam: NORMAL INSPECTION - Eye Exam Eye Exam: PERRL - ENT Exam ENT Exam: Normal Exam - Neck Exam Additional comments: Tracheostomy, Trach Collar - Respiratory Exam Respiratory Exam: Decreased Breath Sounds (at bases) - Cardiovascular Exam Cardiovascular Exam: REGULAR RHYTHM - GI/Abdominal Exam GI & Abdominal Exam: Soft Additional comments: Peg Tube - Exam Additional comments: Cerrato Cath - Extremities Exam Extremities Exam: Normal Inspection - Back Exam Additional comments: Scar L-S - Neurological Exam Additional comments: Minimal response to tactile stimuli, open eyes at times - Skin Skin Exam: Warm Assessment and Plan (1) Aspiration pneumonia Status: Acute (2) Tracheostomy in place Status: Acute (3) S/P percutaneous endoscopic gastrostomy (PEG) tube placement Status: Acute (4) E. coli UTI Status: Resolved (5) Fever Status: Resolved (6) Sepsis syndrome Status: Acute (7) Hypoxemia Status: Chronic (8) Dementia Status: Chronic (9) HTN (hypertension) Status: Chronic (10) DMII (diabetes mellitus, type 2) Status: Chronic - Assessment and Plan (Free Text) Plan: Pt's son do not want to be transfer to LTAC but to take out the Tracheostomy/Peg-tube. Attempt to get in touch with P's son, continue current Tx.
[2018-06-19] MEDS: Insulin Lispro (humaLOG) 100 Units/ml Inj SC SCH ×4 (01:00→18:39)
[2018-06-19] MEDS: Pantoprazole 40 mg Susp UD PEG SCH (09:53)
--- NOTE | 2018-06-19 14:31 | CP.PCM.PN ---
Subjective - Date & Time of Evaluation Date of Evaluation: 06/19/18 Time of Evaluation: 10:30 - Subjective Subjective: F/U S/P Tracheostomy. Eyes open, minimal response to tactile stimuli, with limited movements in U/E Objective - Vital Signs/Intake and Output Vital Signs (last 24 hours): Temp Pulse Resp BP Pulse Ox 98.2 F 87 20 134/69 96 06/19/18 12:54 06/19/18 12:54 06/19/18 12:54 06/19/18 12:54 06/19/18 12:54 Intake and Output: 06/19/18 06/19/18 06:59 18:59 Intake Total 500 Output Total 430 Balance 70 - Medications Medications: Current Medications Acetaminophen (Tylenol 650 Mg Supp) 650 mg [place] Q4 PRN PRN Reason: Fever >100.4 F Acetaminophen (Tylenol 650mg/20.3ml Solution Ud) 650 mg PO Q4 PRN PRN Reason: for temp 100.4 and above Last Admin: 06/11/18 20:23 Dose: 650 mg Alendronate Sodium (Fosamax) 70 mg PO FR [facility] Last Admin: 05/21/18 10:29 Dose: 70 mg Calcium Carbonate (Oscal) 500 mg PO BID [facility] Last Admin: 05/21/18 10:26 Dose: 500 mg Cholecalciferol (Vitamin D) 1,000 intlu PO BID [facility] Last Admin: 05/21/18 10:27 Dose: 1,000 intlu Dextrose (Dextrose 50% Inj) 0 ml IV STAT PRN; Protocol PRN Reason: Hypoglycemia Protocol Dextrose (Glutose 15) 0 gm PO ONCE PRN; Protocol PRN Reason: Hypoglycemia Protocol Donepezil HCl (Aricept) 5 mg PO HS [facility] Last Admin: 05/20/18 21:28 Dose: 5 mg Glucagon (Glucagen Diagnostic Kit) 0 mg IM STAT PRN; Protocol PRN Reason: Hypoglycemia Protocol Insulin Human Lispro (Humalog) 0 units SC Q6H [facility]; Protocol Last Admin: 06/19/18 13:32 Dose: 2 units Memantine (Namenda) 5 mg PO Q12 [facility] Last Admin: 05/21/18 10:25 Dose: 5 mg Multivitamins/Minerals (Therapeutic-M Tab) 1 tab PO DAILY [facility] Last Admin: 05/21/18 10:27 Dose: 1 tab Pantoprazole Sodium (Protonix Susp) 40 mg PEG DAILY [facility] Last Admin: 06/19/18 09:53 Dose: 40 mg Senna/Docusate Sodium (Senokot S 50 Mg-8.6 Mg) 1 tab PO HS [facility] Last Admin: 05/20/18 21:29 Dose: 1 tab Tamsulosin HCl (Flomax) 0.4 mg PO QPM [facility] Last Admin: 05/20/18 17:19 Dose: 0.4 mg - Labs Labs: 06/18/18 05:20 06/18/18 05:20 PT 14.4 Seconds (9.8-13.1) H 06/10/18 04:50 INR 1.3 06/10/18 04:50 APTT 32.4 Seconds (25.6-37.1) 06/10/18 04:50 - Constitutional Appears: Chronically Ill - Head Exam Head Exam: NORMAL INSPECTION - Eye Exam Eye Exam: PERRL - ENT Exam ENT Exam: Normal Exam - Neck Exam Additional comments: Tracheostomy, Trach Collar. - Respiratory Exam Respiratory Exam: Decreased Breath Sounds (at bases) - Cardiovascular Exam Cardiovascular Exam: REGULAR RHYTHM - GI/Abdominal Exam GI & Abdominal Exam: Soft Additional comments: Peg tube - Exam Additional comments: Cerrato Cath - Extremities Exam Extremities Exam: Normal Inspection - Back Exam Additional comments: Scar L-S - Neurological Exam Additional comments: Minimal response to tactile stimuli. - Skin Skin Exam: Warm Assessment and Plan (1) Status post tracheostomy Status: Acute (2) Aspiration pneumonia Status: Acute (3) E. coli UTI Status: Resolved (4) Fever Status: Resolved (5) Sepsis syndrome Status: Acute (6) Hypoxemia Status: Chronic (7) Dementia Status: Chronic (8) HTN (hypertension) Status: Chronic (9) DMII (diabetes mellitus, type 2) Status: Chronic - Assessment and Plan (Free Text) Plan: Continue Humalog, protonix rest of Tx, Track Collar, OGT,
[2018-06-20] MEDS: Insulin Lispro (humaLOG) 100 Units/ml Inj SC SCH ×4 (04:50→18:41)
[2018-06-20] MEDS: Pantoprazole 40 mg Susp UD PEG SCH (09:49)
[2018-06-20] MEDS: Levalbuterol 0.63 MG/3 ML Inhal Soln UD INH SCH ×2 (15:40→19:49)
--- NOTE | 2018-06-20 23:22 | CP.PCM.PN ---
Subjective - Date & Time of Evaluation Date of Evaluation: 06/20/18 Time of Evaluation: 13:20 - Subjective Subjective: eyes open, minimal spontaneous movements, increases respiratory secretions reported by nurses Objective - Vital Signs/Intake and Output Vital Signs (last 24 hours): Temp Pulse Resp BP Pulse Ox 97.6 F 73 20 119/63 99 06/20/18 20:07 06/20/18 20:07 06/20/18 20:07 06/20/18 20:07 06/20/18 20:07 Intake and Output: 06/20/18 06/21/18 18:59 06:59 Intake Total 1340 Output Total 900 Balance 440 - Medications Medications: Current Medications Acetaminophen (Tylenol 650 Mg Supp) 650 mg [place] Q4 PRN PRN Reason: Fever >100.4 F Acetaminophen (Tylenol 650mg/20.3ml Solution Ud) 650 mg PO Q4 PRN PRN Reason: for temp 100.4 and above Last Admin: 06/11/18 20:23 Dose: 650 mg Cholecalciferol (Vitamin D) 1,000 intlu PO BID [facility] Last Admin: 05/21/18 10:27 Dose: 1,000 intlu Dextrose (Dextrose 50% Inj) 0 ml IV STAT PRN; Protocol PRN Reason: Hypoglycemia Protocol Dextrose (Glutose 15) 0 gm PO ONCE PRN; Protocol PRN Reason: Hypoglycemia Protocol Enalapril Maleate (Vasotec) 10 mg PO DAILY [facility] Last Admin: 06/20/18 14:16 Dose: 10 mg Glucagon (Glucagen Diagnostic Kit) 0 mg IM STAT PRN; Protocol PRN Reason: Hypoglycemia Protocol Insulin Human Lispro (Humalog) 0 units SC Q6H [facility]; Protocol Last Admin: 06/20/18 18:41 Dose: Not Given Levalbuterol HCl (Xopenex) 0.63 mg INH RQ6 [facility] Last Admin: 06/20/18 19:49 Dose: Not Given Multivitamins/Minerals (Therapeutic-M Tab) 1 tab PO DAILY [facility] Last Admin: 05/21/18 10:27 Dose: 1 tab Pantoprazole Sodium (Protonix Susp) 40 mg PEG DAILY [facility] Last Admin: 06/20/18 09:49 Dose: 40 mg Senna/Docusate Sodium (Senokot S 50 Mg-8.6 Mg) 1 tab PO HS [facility] Last Admin: 05/20/18 21:29 Dose: 1 tab Tamsulosin HCl (Flomax) 0.4 mg PO QPM [facility] Last Admin: 05/20/18 17:19 Dose: 0.4 mg - Labs Labs: 06/18/18 05:20 06/18/18 05:20 PT 14.4 Seconds (9.8-13.1) H 06/10/18 04:50 INR 1.3 06/10/18 04:50 APTT 32.4 Seconds (25.6-37.1) 06/10/18 04:50 - Constitutional Appears: Chronically Ill - Head Exam Head Exam: NORMAL INSPECTION - Eye Exam Eye Exam: PERRL - ENT Exam ENT Exam: Normal Exam - Neck Exam Additional comments: Tracheostomy - Respiratory Exam Respiratory Exam: Decreased Breath Sounds (at bases) - Cardiovascular Exam Cardiovascular Exam: REGULAR RHYTHM - GI/Abdominal Exam GI & Abdominal Exam: Soft, Normal Bowel Sounds Additional comments: PEG tube - Extremities Exam Extremities Exam: Normal Inspection - Back Exam Additional comments: L-S eschar - Neurological Exam Additional comments: eyes open, not following commands, minimal spontaneous movements U/E - Skin Skin Exam: Warm Assessment and Plan (1) Status post tracheostomy Status: Acute (2) Aspiration pneumonia Status: Acute (3) E. coli UTI Status: Resolved (4) Fever Status: Resolved (5) Sepsis syndrome Status: Acute (6) Hypoxemia Status: Chronic (7) Dementia Status: Chronic (8) HTN (hypertension) Status: Chronic (9) DMII (diabetes mellitus, type 2) Status: Chronic - Assessment and Plan (Free Text) Plan: Patient's son has been in contact with Hospice, nebulizer Tx, BS control, BP elevated add Vasotec
[2018-06-21] MEDS: Levalbuterol 0.63 MG/3 ML Inhal Soln UD INH SCH ×4 (01:01→18:59)
[2018-06-21] MEDS: Insulin Lispro (humaLOG) 100 Units/ml Inj SC SCH ×4 (01:35→19:55)
[2018-06-21] MEDS: Pantoprazole 40 mg Susp UD PEG SCH (08:18)
[2018-06-21] MEDS: Cholecalciferol 1,000 INTLU TAB PO SCH ×2 (09:05→17:10)
[2018-06-21] MEDS: Multivitamin With Minerals Tab PO SCH (09:05)
--- NOTE | 2018-06-21 11:56 | CP.PCM.CON ---
History of Present Illness - History of Present Illness History of Present Illness: Palliative Consult for patient of Dr. Hernández Patient is a 82 year old Male who came [facility] the ED from the [facility] for evaluation of fever. At senior living, patient had temp of 102 and was given tylenol in the morning with no relief prior to ER visit. As per NH, patient also looked more lethargic. Patient was admitte to Med Surg for fever, pneumonia, UTI, and r/o sepsis. On 05/12 shower maid was called for low O2 sat, at that time patient remained on Medsurg. Another PHOTO MASK INSPECTOR was called on 05/24 for low O2 sat (<90), tachycardiac, tachypnea, and unresponsiveness. Patient was then intubated and sent to ICU. During stay in ICU, patient eventually received Peg tube and trach. Patient downgraded from ICU to telemetry unit at this time. PMH: Dementia, DM, HTN, Afib, Pneumonia [facility] Hx: unknown CXR 06/12: stable right upper lobe and right midlung field infiltrates Review of Systems - Review of Systems Review of Systems: unable to obtain ROS from patient, patient eyes open but not responsive or following commands , has trach collar Past Patient History - Past Medical History & Family History Past Medical History?: Yes - Past Social History Alcohol: None Drugs: Denies Home Situation {Lives}: [facility] - CARDIAC Hx Cardiac Disorders: Yes Hx Hypertension: Yes - PULMONARY Hx Respiratory Disorders: No - NEUROLOGICAL Hx Neurological Disorder: Yes Hx Dementia: Yes - HEENT Hx HEENT Problems: No - RENAL Hx Dialysis: No - ENDOCRINE/METABOLIC Hx Endocrine Disorders: Yes Hx Diabetes Mellitus Type 2: Yes - HEMATOLOGICAL/ONCOLOGICAL Hx Blood Disorders: No - INTEGUMENTARY Hx Dermatological Problems: No - MUSCULOSKELETAL/RHEUMATOLOGICAL Hx Musculoskeletal Disorders: Yes Hx Arthritis: Yes Hx Back Pain: Yes - GASTROINTESTINAL Hx Gastrointestinal Disorders: No - GENITOURINARY/GYNECOLOGICAL Hx Genitourinary Disorders: Yes Hx Incontinence: Yes Hx Prostate Problems: Yes Hx Urinary Tract Infection: Yes Other/Comment: Obstructive uropathy - PSYCHIATRIC Hx Psychophysiologic Disorder: Yes Hx Anxiety: Yes - SURGICAL HISTORY Hx Mastectomy: No - ANESTHESIA Hx Anesthesia: No Meds Allergies/Adverse Reactions: Allergies Allergy/AdvReac Type Severity Reaction Status Date / Time levofloxacin [From Levaquin] Allergy RASH Verified 05/12/18 07:39 Penicillins Allergy RASH Verified 05/12/18 07:39 - Medications Medications: Current Medications Acetaminophen (Tylenol 650 Mg Supp) 650 mg [place] Q4 PRN PRN Reason: Fever >100.4 F Acetaminophen (Tylenol 650mg/20.3ml Solution Ud) 650 mg PO Q4 PRN PRN Reason: for temp 100.4 and above Last Admin: 06/11/18 20:23 Dose: 650 mg Cholecalciferol (Vitamin D) 1,000 intlu PO BID [facility] Last Admin: 05/21/18 10:27 Dose: 1,000 intlu Dextrose (Dextrose 50% Inj) 0 ml IV STAT PRN; Protocol PRN Reason: Hypoglycemia Protocol Dextrose (Glutose 15) 0 gm PO ONCE PRN; Protocol PRN Reason: Hypoglycemia Protocol Enalapril Maleate (Vasotec) 10 mg PO DAILY [facility] Last Admin: 06/21/18 08:17 Dose: 10 mg Glucagon (Glucagen Diagnostic Kit) 0 mg IM STAT PRN; Protocol PRN Reason: Hypoglycemia Protocol Insulin Human Lispro (Humalog) 0 units SC Q6H [facility]; Protocol Last Admin: 06/21/18 06:44 Dose: Not Given Levalbuterol HCl (Xopenex) 0.63 mg INH RQ6 [facility] Last Admin: 06/21/18 07:44 Dose: 0.63 mg Multivitamins/Minerals (Therapeutic-M Tab) 1 tab PO DAILY [facility] Last Admin: 05/21/18 10:27 Dose: 1 tab Pantoprazole Sodium (Protonix Susp) 40 mg PEG DAILY [facility] Last Admin: 06/21/18 08:18 Dose: 40 mg Senna/Docusate Sodium (Senokot S 50 Mg-8.6 Mg) 1 tab PO HS [facility] Last Admin: 05/20/18 21:29 Dose: 1 tab Tamsulosin HCl (Flomax) 0.4 mg PO QPM [facility] Last Admin: 05/20/18 17:19 Dose: 0.4 mg Physical Exam - Constitutional Appears: No Acute Distress, Cachectic, Chronically Ill - Head Exam Head Exam: ATRAUMATIC, NORMAL INSPECTION, NORMOCEPHALIC - Eye Exam Eye Exam: Normal appearance - ENT Exam ENT Exam: Mucous Membranes Moist - Neck Exam Additional comments: has trach - Respiratory Exam Respiratory Exam: Decreased Breath Sounds - Cardiovascular Exam Cardiovascular Exam: REGULAR RHYTHM - GI/Abdominal Exam GI & Abdominal Exam: Normal Bowel Sounds Additional comments: has peg tube - Rectal Exam Rectal Exam: Deferred - Exam Additional comments: [place] catheter - Neurological Exam Additional comments: eyes open, does not follow commands - Psychiatric Exam Psychiatric exam: Flat Affect - Skin Skin Exam: Pallor, Warm Additional comments: not intact skin Results - Vital Signs Recent Vital Signs: Last Vital Signs Temp 98.9 F 06/21/18 08:28 Pulse 82 06/21/18 08:28 Resp 96 H 06/21/18 08:28 BP 117/55 L 06/21/18 08:28 Pulse Ox 98 06/21/18 05:00 - Labs Result Diagrams: 06/18/18 05:20 06/18/18 05:20 Labs: Laboratory Results - last 24 hr 06/20/18 06/20/18 06/20/18 07:23 11:47 18:34 POC Glucose (mg/dL) 140 H 138 H 134 H 06/21/18 06/21/18 06/21/18 01:31 05:36 11:09 POC Glucose (mg/dL) 116 H 133 H 145 H Assessment & Plan - Assessment and Plan (Free Text) Assessment: Palliative consult DNR,There is no advanced directive in the chart. Palliative Performance Scale 10% I reviewed medical records, all diagnostic studies, examined patient in bed. -eyes open but does not follow commands -non ambulatory and bedbound, needs max assist -skin warm, pallor, has sacral wound -breath sounds are diminished, pt has trach - Normal HR, SR on tele monitor -Bowel sounds present, incontinent of urine and stool Goals of Care: Goals of care discussion to be had with patient's son who is decision maker. Phone call was made to Patient son Amos Hickey, voicemail left to return call to palliative care. As per nursing staff, patient son Amos requesting Hospice Care. Code Status: Patient is currently DNR as per son's wishes. Impression Hypoxemia Decreased Mobility (bed bound ) Incontinence Impaired Skin integrity (unstageable wound to sacrum) Needs continued Goals of Care discussion Suggestion Max assist for ADLs reposition q2h keep skin clean and dry Will continue Goals of care discussions Agree with DNR Palliative care will remain on board to continue Goals of Care discussions Time Spent with patient 55 min
--- NOTE | 2018-06-21 15:20 | CP.PCM.PN ---
Subjective - Date & Time of Evaluation Date of Evaluation: 06/21/18 Time of Evaluation: 10:00 - Subjective Subjective: S/P Tracheostomy. Eyes open, minimal response to tactile stimuli. Objective - Vital Signs/Intake and Output Vital Signs (last 24 hours): Temp Pulse Resp BP Pulse Ox 99.4 F 90 20 119/66 94 L 06/21/18 12:57 06/21/18 12:57 06/21/18 12:57 06/21/18 12:57 06/21/18 12:57 - Medications Medications: Current Medications Acetaminophen (Tylenol 650 Mg Supp) 650 mg [place] Q4 PRN PRN Reason: Fever >100.4 F Acetaminophen (Tylenol 650mg/20.3ml Solution Ud) 650 mg PO Q4 PRN PRN Reason: for temp 100.4 and above Last Admin: 06/11/18 20:23 Dose: 650 mg Cholecalciferol (Vitamin D) 1,000 intlu PO BID [facility] Last Admin: 06/21/18 09:05 Dose: 1,000 intlu Dextrose (Dextrose 50% Inj) 0 ml IV STAT PRN; Protocol PRN Reason: Hypoglycemia Protocol Dextrose (Glutose 15) 0 gm PO ONCE PRN; Protocol PRN Reason: Hypoglycemia Protocol Enalapril Maleate (Vasotec) 10 mg PO DAILY [facility] Last Admin: 06/21/18 08:17 Dose: 10 mg Glucagon (Glucagen Diagnostic Kit) 0 mg IM STAT PRN; Protocol PRN Reason: Hypoglycemia Protocol Insulin Human Lispro (Humalog) 0 units SC Q6H [facility]; Protocol Last Admin: 06/21/18 12:26 Dose: Not Given Levalbuterol HCl (Xopenex) 0.63 mg INH RQ6 [facility] Last Admin: 06/21/18 13:53 Dose: 0.63 mg Multivitamins/Minerals (Therapeutic-M Tab) 1 tab PO DAILY [facility] Last Admin: 06/21/18 09:05 Dose: 1 tab Pantoprazole Sodium (Protonix Susp) 40 mg PEG DAILY [facility] Last Admin: 06/21/18 08:18 Dose: 40 mg Senna/Docusate Sodium (Senokot S 50 Mg-8.6 Mg) 1 tab PO HS [facility] Last Admin: 05/20/18 21:29 Dose: 1 tab Tamsulosin HCl (Flomax) 0.4 mg PO QPM [facility] Last Admin: 05/20/18 17:19 Dose: 0.4 mg - Labs Labs: 06/18/18 05:20 06/18/18 05:20 PT 14.4 Seconds (9.8-13.1) H 06/10/18 04:50 INR 1.3 06/10/18 04:50 APTT 32.4 Seconds (25.6-37.1) 06/10/18 04:50 - Constitutional Appears: Chronically Ill - Head Exam Head Exam: NORMAL INSPECTION - Eye Exam Eye Exam: PERRL - ENT Exam ENT Exam: Normal Exam - Neck Exam Additional comments: Tracheostomy, Trach Collar - Respiratory Exam Respiratory Exam: Decreased Breath Sounds (at bases) - Cardiovascular Exam Cardiovascular Exam: REGULAR RHYTHM - GI/Abdominal Exam GI & Abdominal Exam: Soft Additional comments: Peg-Tube - Extremities Exam Extremities Exam: Normal Inspection - Back Exam Additional comments: Scar L-S - Neurological Exam Neurological Exam: Awake Additional comments: Minimal response to tactile stimuli - Skin Skin Exam: Warm Assessment and Plan (1) Status post tracheostomy Status: Acute (2) Aspiration pneumonia Status: Acute (3) E. coli UTI Status: Resolved (4) Fever Status: Resolved (5) Sepsis syndrome Status: Acute (6) Hypoxemia Status: Chronic (7) Dementia Status: Chronic (8) HTN (hypertension) Status: Chronic (9) DMII (diabetes mellitus, type 2) Status: Chronic - Assessment and Plan (Free Text) Plan: Continue ventilatory support and rest of Tx.
[2018-06-21] MEDS: Acetaminophen 650mg/20.3ml solution UD PO PRN (19:54)
[2018-06-21] MEDS: Docusate-Senna 50 mg-8.6 mg Tab PO SCH (21:37)
[2018-06-22] MEDS: Insulin Lispro (humaLOG) 100 Units/ml Inj SC SCH ×5 (00:55→23:45)
[2018-06-22] MEDS: Levalbuterol 0.63 MG/3 ML Inhal Soln UD INH SCH ×4 (01:00→19:13)
[2018-06-22] MEDS: Pantoprazole 40 mg Susp UD PEG SCH (09:47)
[2018-06-22] MEDS: Multivitamin With Minerals Tab PO SCH (09:47)
[2018-06-22] MEDS: Cholecalciferol 1,000 INTLU TAB PO SCH ×2 (09:48→17:14)
[2018-06-22 10:05] LABS: HEMOGLOBIN 9.5 g/dL (12.0-18.0); MEAN CELL VOLUME 84.1 fl (80.0-94.0); MEAN CORPUSCULAR HGB CONC 33.3 g/dL (33.0-37.0); RBC 3.4 Mil/uL (4.40-5.90); WHITE BLOOD COUNT 8.9 K/uL (4.8-10.8)
[2018-06-22 10:23] LABS: BLOOD UREA NITROGEN 36 mg/dl (9-20); CALCIUM 9.6 mg/dL (8.4-10.2); GFR NON-AFRICAN AMERICAN > 60
--- NOTE | 2018-06-22 13:55 | CP.PCM.PCO ---
Assessment and Plan - Assessment and Plan (Free Text) Assessment: Spoke with patient's son Amos Hickey regarding current progress/ goals of care. He would like patient to be referred to [facility] since it is closer to him. Son agreeable to transfer to [facility] pending auth
--- NOTE | 2018-06-22 16:36 | CP.PCM.PN ---
Subjective - Date & Time of Evaluation Date of Evaluation: 06/22/18 Time of Evaluation: 10:50 - Subjective Subjective: F/U S/P Tracheostomy. Pt with eyes open, mumbling words, attempt to follows simple commands. Objective - Vital Signs/Intake and Output Vital Signs (last 24 hours): Temp Pulse Resp BP Pulse Ox 99.4 F 74 20 124/64 99 06/22/18 11:38 06/22/18 11:38 06/22/18 11:38 06/22/18 11:38 06/22/18 11:38 - Medications Medications: Current Medications Acetaminophen (Tylenol 650 Mg Supp) 650 mg [place] Q4 PRN PRN Reason: Fever >100.4 F Acetaminophen (Tylenol 650mg/20.3ml Solution Ud) 650 mg PO Q4 PRN PRN Reason: for temp 100.4 and above Last Admin: 06/21/18 19:54 Dose: 650 mg Cholecalciferol (Vitamin D) 1,000 intlu PO BID [facility] Last Admin: 06/22/18 09:48 Dose: 1,000 intlu Dextrose (Dextrose 50% Inj) 0 ml IV STAT PRN; Protocol PRN Reason: Hypoglycemia Protocol Dextrose (Glutose 15) 0 gm PO ONCE PRN; Protocol PRN Reason: Hypoglycemia Protocol Enalapril Maleate (Vasotec) 10 mg PO DAILY [facility] Last Admin: 06/22/18 09:48 Dose: 10 mg Glucagon (Glucagen Diagnostic Kit) 0 mg IM STAT PRN; Protocol PRN Reason: Hypoglycemia Protocol Insulin Human Lispro (Humalog) 0 units SC Q6H [facility]; Protocol Last Admin: 06/22/18 13:01 Dose: Not Given Levalbuterol HCl (Xopenex) 0.63 mg INH RQ6 [facility] Last Admin: 06/22/18 13:20 Dose: 0.63 mg Multivitamins/Minerals (Therapeutic-M Tab) 1 tab PO DAILY [facility] Last Admin: 06/22/18 09:47 Dose: 1 tab Pantoprazole Sodium (Protonix Susp) 40 mg PEG DAILY [facility] Last Admin: 06/22/18 09:47 Dose: 40 mg Senna/Docusate Sodium (Senokot S 50 Mg-8.6 Mg) 1 tab PO HS [facility] Last Admin: 06/21/18 21:37 Dose: 1 tab Tamsulosin HCl (Flomax) 0.4 mg PO QPM [facility] Last Admin: 06/21/18 17:10 Dose: 0.4 mg - Labs Labs: 06/22/18 09:50 06/22/18 09:50 PT 14.4 Seconds (9.8-13.1) H 06/10/18 04:50 INR 1.3 06/10/18 04:50 APTT 32.4 Seconds (25.6-37.1) 06/10/18 04:50 - Constitutional Appears: No Acute Distress, Chronically Ill - Head Exam Head Exam: NORMAL INSPECTION - Eye Exam Eye Exam: PERRL - ENT Exam ENT Exam: Normal Exam - Neck Exam Additional comments: Tracheostomy, Trach Collar - Respiratory Exam Respiratory Exam: Decreased Breath Sounds (at bases) - Cardiovascular Exam Cardiovascular Exam: REGULAR RHYTHM - GI/Abdominal Exam GI & Abdominal Exam: Soft Additional comments: Peg Tube - Back Exam Back Exam: NORMAL INSPECTION Additional comments: Scar L-S - Neurological Exam Neurological Exam: Awake Additional comments: Mumbling sounds, attempt to follows simple commands likely squeezing hands. - Skin Skin Exam: Warm Assessment and Plan (1) Status post tracheostomy Status: Acute (2) Aspiration pneumonia Status: Acute (3) E. coli UTI Status: Resolved (4) Fever Status: Resolved (5) Sepsis syndrome Status: Acute (6) Hypoxemia Status: Chronic (7) Dementia Status: Chronic (8) HTN (hypertension) Status: Chronic (9) DMII (diabetes mellitus, type 2) Status: Chronic - Assessment and Plan (Free Text) Plan: Continue Xopenex, Vasotec and rest of Tx., awaiting authorization for LTAC.
[2018-06-22 20:08] VITALS: RESP 18
--- NOTE | 2018-06-22 20:22 | CARD ---
APPROVED REPORT Date of service: 06/22/2018 EKG Measurement Heart [id number] <Conclusion> Normal sinus rhythm Normal ECG
[2018-06-22] MEDS: Docusate-Senna 50 mg-8.6 mg Tab PO SCH (22:29)
[2018-06-23] MEDS: Levalbuterol 0.63 MG/3 ML Inhal Soln UD INH SCH ×3 (02:47→13:18)
[2018-06-23] MEDS: Insulin Lispro (humaLOG) 100 Units/ml Inj SC SCH ×2 (07:08→13:05)
[2018-06-23 08:14] VITALS: O2SAT 96
[2018-06-23] MEDS: Pantoprazole 40 mg Susp UD PEG SCH (09:05)
[2018-06-23] MEDS: Multivitamin With Minerals Tab PO SCH (09:06)
[2018-06-23] MEDS: Cholecalciferol 1,000 INTLU TAB PO SCH (09:06)
[2018-06-23 12:00] VITALS: BP 119/67; PULSE 70; TEMP 98.5
--- NOTE | 2018-06-23 14:44 | CP.PCM.PN ---
Objective - Vital Signs/Intake and Output Vital Signs (last 24 hours): Temp Pulse Resp BP Pulse Ox 98.5 F 70 18 119/67 96 06/23/18 11:59 06/23/18 11:59 06/23/18 11:59 06/23/18 11:59 06/23/18 11:59 Intake and Output: 06/23/18 06/23/18 06:59 18:59 Intake Total 1270 Output Total 500 Balance 770 - Medications Medications: Current Medications Acetaminophen (Tylenol 650 Mg Supp) 650 mg [place] Q4 PRN PRN Reason: Fever >100.4 F Acetaminophen (Tylenol 650mg/20.3ml Solution Ud) 650 mg PO Q4 PRN PRN Reason: for temp 100.4 and above Last Admin: 06/21/18 19:54 Dose: 650 mg Cholecalciferol (Vitamin D) 1,000 intlu PO BID [facility] Last Admin: 06/23/18 09:06 Dose: 1,000 intlu Dextrose (Dextrose 50% Inj) 0 ml IV STAT PRN; Protocol PRN Reason: Hypoglycemia Protocol Dextrose (Glutose 15) 0 gm PO ONCE PRN; Protocol PRN Reason: Hypoglycemia Protocol Enalapril Maleate (Vasotec) 10 mg PO DAILY [facility] Last Admin: 06/23/18 09:06 Dose: 10 mg Glucagon (Glucagen Diagnostic Kit) 0 mg IM STAT PRN; Protocol PRN Reason: Hypoglycemia Protocol Insulin Human Lispro (Humalog) 0 units SC Q6H [facility]; Protocol Last Admin: 06/23/18 13:05 Dose: 2 units Levalbuterol HCl (Xopenex) 0.63 mg INH RQ6 [facility] Last Admin: 06/23/18 13:18 Dose: 0.63 mg Multivitamins/Minerals (Therapeutic-M Tab) 1 tab PO DAILY [facility] Last Admin: 06/23/18 09:06 Dose: 1 tab Pantoprazole Sodium (Protonix Susp) 40 mg PEG DAILY [facility] Last Admin: 06/23/18 09:05 Dose: 40 mg Senna/Docusate Sodium (Senokot S 50 Mg-8.6 Mg) 1 tab PO HS [facility] Last Admin: 06/22/18 22:29 Dose: 1 tab Tamsulosin HCl (Flomax) 0.4 mg PO QPM [facility] Last Admin: 06/22/18 17:13 Dose: 0.4 mg - Labs Labs: 06/22/18 09:50 06/22/18 09:50 PT 14.4 Seconds (9.8-13.1) H 06/10/18 04:50 INR 1.3 06/10/18 04:50 APTT 32.4 Seconds (25.6-37.1) 06/10/18 04:50 Assessment and Plan (1) Status post tracheostomy Status: Acute (2) Aspiration pneumonia Status: Acute (3) E. coli UTI Status: Resolved (4) Fever Status: Resolved (5) Sepsis syndrome Status: Acute (6) Hypoxemia Status: Chronic (7) Dementia Status: Chronic (8) HTN (hypertension) Status: Chronic (9) DMII (diabetes mellitus, type 2) Status: Chronic
--- NOTE | 2018-06-23 16:50 | CP.PCM.DIS ---
Provider - Provider Date of Admission: 05/12/18 10:52 Pt discharged to [facility]. Attending physician: Ramiro Hernández MD Consults: 05/12/18 14:05 Urology Consult Routine Comment: Consulting Provider: Dennis Gary Consulting Physician: Dennis Gary Reason for Consult: UTI 05/12/18 15:55 Infectious Disease Consult Routine Comment: Consulting Provider: Jatin Navarro Consulting Physician: Jatin Navarro Reason for Consult: UTI, allergy to mx antibiotics 05/15/18 05:23 Wound Care [Nursing Referral for Wound Care] Routine Comment: Physician Instructions: Reason For Exam: redness to sacrum/devon heels 05/25/18 10:40 Gastroenterology Consult Routine Comment: evaluate patient for Peg insertion Consulting Provider: Rde Rosario Consulting Physician: Red Rosario Reason for Consult: evaluate patient for Peg insertion 05/28/18 08:00 Wound Care [Nursing Referral for Wound Care] Routine Comment: Physician Instructions: Evaluate and order as needed. Reason For Exam: Unstageable Sacral 06/08/18 16:43 General Surgery Consult Routine Comment: Consulting Provider: Amos Keita Consulting Physician: Amos Keita Reason for Consult: for tracheostomy 06/21/18 09:54 Palliative Care Consult Routine Comment: Consulting Provider: Carissa Valentino Physician Instructions: Reason For Exam: resp failure Diagnosis - Discharge Diagnosis (1) Status post tracheostomy Status: Acute (2) Aspiration pneumonia Status: Acute Priority: High (3) E. coli UTI Status: Resolved (4) Fever Status: Resolved Priority: High (5) Sepsis syndrome Status: Acute Priority: High (6) Hypoxemia Status: Chronic Priority: High (7) Dementia Status: Chronic Priority: Medium (8) HTN (hypertension) Status: Chronic Priority: High (9) DMII (diabetes mellitus, type 2) Status: Chronic Priority: Medium Hospital Course - Lab Results Lab Results: Micro Results 06/19/18 06:15 Nose MRSA Culture (Admit) - Final MRSA NOT DETECTED 06/11/18 17:30 Blood-Venous Blood Culture - Final NO GROWTH AFTER 5 DAYS 06/11/18 17:30 Blood-Venous Gram Stain - Final TEST NOT PERFORMED 06/11/18 17:15 Blood-Venous Blood Culture - Final NO GROWTH AFTER 5 DAYS 06/11/18 17:15 Blood-Venous Gram Stain - Final TEST NOT PERFORMED 05/31/18 12:34 Blood-Venous Blood Culture - Final NO GROWTH AFTER 5 DAYS 05/31/18 12:34 Blood-Venous Gram Stain - Final TEST NOT PERFORMED 05/31/18 12:44 Blood-Venous Blood Culture - Final NO GROWTH AFTER 5 DAYS 05/31/18 12:44 Blood-Venous Gram Stain - Final TEST NOT PERFORMED 05/28/18 05:00 Bronchial Washings Bronchial Culture - Final Renee Albicans 05/27/18 21:00 Blood-Venous Blood Culture - Final NO GROWTH AFTER 5 DAYS 05/27/18 21:00 Blood-Venous Gram Stain - Final TEST NOT PERFORMED 05/27/18 21:05 Blood-Venous Blood Culture - Final NO GROWTH AFTER 5 DAYS 05/27/18 21:05 Blood-Venous Gram Stain - Final TEST NOT PERFORMED 05/26/18 14:13 Blood-Venous Blood Culture - Final NO GROWTH AFTER 5 DAYS 05/26/18 14:13 Blood-Venous Gram Stain - Final TEST NOT PERFORMED 05/27/18 21:00 Trachasp Gram Stain - Final 05/27/18 21:00 Trachasp Sputum Culture - Final Yeast Species 05/24/18 14:15 Blood-Venous Blood Culture - Final NO GROWTH AFTER 5 DAYS 05/24/18 14:15 Blood-Venous Gram Stain - Final TEST NOT PERFORMED 05/24/18 14:00 Blood-Venous Blood Culture - Final NO GROWTH AFTER 5 DAYS 05/24/18 14:00 Blood-Venous Gram Stain - Final TEST NOT PERFORMED 05/27/18 21:00 Urine,Catheterized Urine Culture - Final No Growth (<1,000 CFU/ML) 05/24/18 15:00 Sputum Gram Stain - Final 05/24/18 15:00 Sputum Sputum Culture - Final Yeast Species 05/24/18 09:35 Urine,Catheterized Urine Culture - Final No Growth (<1,000 CFU/ML) 05/20/18 15:31 Blood-Venous Blood Culture - Final NO GROWTH AFTER 5 DAYS 05/20/18 15:31 Blood-Venous Gram Stain - Final TEST NOT PERFORMED 05/20/18 15:42 Blood-Venous Blood Culture - Final NO GROWTH AFTER 5 DAYS 05/20/18 15:42 Blood-Venous Gram Stain - Final TEST NOT PERFORMED 05/24/18 09:35 Naris MRSA Culture (Admit) - Final MRSA NOT DETECTED 05/21/18 16:57 Sputum Induced Gram Stain - Final 05/21/18 16:57 Sputum Induced Sputum Culture - Final Yeast Species 05/12/18 07:50 Blood Blood Culture - Final NO GROWTH AFTER 5 DAYS 05/12/18 07:50 Blood Gram Stain - Final TEST NOT PERFORMED 05/12/18 Unknown Blood Blood Culture - Final NO GROWTH AFTER 5 DAYS 05/12/18 Unknown Blood Gram Stain - Final TEST NOT PERFORMED 05/12/18 08:40 Urine,Catheterized Urine Culture - Final Escherichia Coli Most Recent Lab Values WBC 8.9 K/uL (4.8-10.8) 06/22/18 09:50 RBC 3.40 Mil/uL (4.40-5.90) L 06/22/18 09:50 Hgb 9.5 g/dL (12.0-18.0) L 06/22/18 09:50 Hct 28.6 % (35.0-51.0) L 06/22/18 09:50 MCV 84.1 fl (80.0-94.0) 06/22/18 09:50 MCH 28.0 pg (27.0-31.0) 06/22/18 09:50 MCHC 33.3 g/dL (33.0-37.0) 06/22/18 09:50 RDW 20.0 % (11.5-14.5) H 06/22/18 09:50 Plt Count 305 K/uL (130-400) 06/22/18 09:50 MPV 9.0 fl (7.2-11.7) 06/12/18 04:30 Neut % (Auto) 78.5 % (50.0-75.0) H 06/12/18 04:30 Lymph % (Auto) 10.1 % (20.0-40.0) L 06/12/18 04:30 Powell % (Auto) 9.6 % (0.0-10.0) 06/12/18 04:30 Eos % (Auto) 1.5 % (0.0-4.0) 06/12/18 04:30 Baso % (Auto) 0.3 % (0.0-2.0) 06/12/18 04:30 Neut # (Auto) 6.6 K/uL (1.8-7.0) 06/12/18 04:30 Lymph # (Auto) 0.9 K/uL (1.0-4.3) L 06/12/18 04:30 Powell # (Auto) 0.8 K/uL (0.0-0.8) 06/12/18 04:30 Eos # (Auto) 0.1 K/uL (0.0-0.7) 06/12/18 04:30 Baso # (Auto) 0.0 K/uL (0.0-0.2) 06/12/18 04:30 Neutrophils % (Manual) 80 % (42-75) H 06/10/18 04:50 Band Neutrophils % 1 % (0-2) 06/05/18 04:45 Lymphocytes % (Manual) 10 % (20-50) L 06/10/18 04:50 Monocytes % (Manual) 8 % (0-10) 06/10/18 04:50 Eosinophils % (Manual) 2 % (0-7) 06/10/18 04:50 Myelocytes % 1 % (0-0) H 06/05/18 04:45 Toxic Granulation Present 05/12/18 07:50 Platelet Estimate Normal (NORMAL) 06/10/18 04:50 Plt Clumps, EDTA Present 05/25/18 04:40 Large Platelets Present 06/05/18 04:45 Hypochromasia (manual) Moderate 06/10/18 04:50 Anisocytosis (manual) Slight 06/10/18 04:50 Tear Drop Cells Slight 06/05/18 04:45 Ovalocytes Slight 06/10/18 04:50 Cuate Cells Slight 05/27/18 04:30 Schistocytes Slight 06/05/18 04:45 PT 14.4 Seconds (9.8-13.1) H 06/10/18 04:50 INR 1.3 06/10/18 04:50 APTT 32.4 Seconds (25.6-37.1) 06/10/18 04:50 pCO2 38 mm/Hg (35-45) 06/13/18 04:44 pO2 103 mm/Hg (80-100) H 06/13/18 04:44 HCO3 31.5 mmol/L (21-28) H 06/13/18 04:44 ABG pH 7.53 (7.35-7.45) H 06/13/18 04:44 ABG Total CO2 33.0 mmol/L (22-28) H 06/13/18 04:44 ABG O2 Saturation 100.7 % (95-98) H 06/13/18 04:44 ABG O2 Content 11.6 ML/dL (15-23) L 06/13/18 04:44 ABG Base Excess 8.4 mmol/L (-2.0-3.0) H 06/13/18 04:44 ABG Hemoglobin 8.3 g/dL (11.7-17.4) L 06/13/18 04:44 ABG Carboxyhemoglobin 1.8 % (0.5-1.5) H 06/13/18 04:44 POC ABG HHb (Measured) -0.7 % (0.0-5.0) L 06/13/18 04:44 ABG Methemoglobin 1.2 % (0.0-3.0) 06/13/18 04:44 ABG O2 Capacity 11.5 mL/dL (16-24) L 06/13/18 04:44 Forrest Test Yes 06/13/18 04:44 ABG Potassium 3.5 mmol/L (3.6-5.2) L 05/31/18 04:00 VBG pH 7.45 (7.32-7.43) H 05/12/18 08:20 VBG pCO2 47 mmHg (40-60) 05/12/18 08:20 VBG HCO3 30.1 mmol/L 05/12/18 08:20 VBG Total CO2 34.1 mmol/L (22-28) H 05/12/18 08:20 VBG O2 Sat (Calc) 74.7 % (40-65) H 05/12/18 08:20 VBG Base Excess 7.5 mmol/L (0.0-2.0) H 05/12/18 08:20 VBG Potassium 3.5 mmol/L (3.6-5.2) L 05/12/18 08:20 A-a O2 Difference 206.0 mm/Hg 06/13/18 04:44 Hgb O2 Saturation 97.7 % (95.0-98.0) 06/13/18 04:44 Sodium 144.0 mmol/L (132-148) 05/31/18 04:00 Chloride 111.0 mmol/L (98-107) H 05/31/18 04:00 Glucose 152 mg/dL (75-110) H 05/31/18 04:00 Lactate 1.6 mmol/L (0.7-2.1) 05/31/18 04:00 Vent Mode Cpap 06/12/18 04:24 Mechanical Rate 18 06/11/18 05:00 FiO2 50.0 % 06/13/18 04:44 Tidal Volume 400 06/11/18 05:00 PEEP 5 06/12/18 04:24 Pressure Support 5 06/12/18 04:24 CPAP 5 06/03/18 03:59 Sodium 139 mmol/l (132-148) 06/22/18 09:50 Potassium 4.6 MMOL/L (3.6-5.0) 06/22/18 09:50 Chloride 96 mmol/L (98-107) L 06/22/18 09:50 Carbon Dioxide 35 mmol/L (22-30) H 06/22/18 09:50 Anion Gap 13 (10-20) 06/22/18 09:50 BUN 36 mg/dl (9-20) H 06/22/18 09:50 Creatinine 0.6 mg/dl (0.8-1.5) L 06/22/18 09:50 Est GFR ( Amer) > 60 06/22/18 09:50 Est GFR (Non-Af Amer) > 60 06/22/18 09:50 POC Glucose (mg/dL) 153 mg/dL (65-110) H 06/23/18 12:20 Random Glucose 113 mg/dL (75-110) H 06/22/18 09:50 Lactic Acid 1.3 mmol/L (0.7-2.1) 05/24/18 08:54 Calcium 9.6 mg/dL (8.4-10.2) 06/22/18 09:50 Phosphorus 2.8 mg/dl (2.5-4.5) 06/12/18 04:30 Magnesium 2.2 MG/DL (1.6-2.3) 06/12/18 04:30 Total Bilirubin 0.5 mg/dl (0.2-1.3) 06/18/18 05:20 AST 25 U/L (17-59) 06/18/18 05:20 ALT 26 U/L (21-72) 06/18/18 05:20 Alkaline Phosphatase 103 U/L (38-126) 06/18/18 05:20 Troponin I 0.0800 ng/mL (0.00-0.120) 05/24/18 21:38 Total Protein 7.2 G/DL (6.3-8.2) 06/18/18 05:20 Albumin 3.3 g/dL (3.5-5.0) L 06/18/18 05:20 Globulin 3.9 gm/dL (2.2-3.9) 06/18/18 05:20 Albumin/Globulin Ratio 0.8 (1.0-2.1) L 06/18/18 05:20 Prostate Specific Ag 20.1 ng/ML (0.00-4.0) H 05/13/18 06:00 Free PSA 8.2 ng/mL 05/13/18 06:00 % Free PSA Not calculated % (calc) (>25) 05/13/18 06:00 Total PSA 26.3 ng/mL (< or = 4.0) H 05/13/18 06:00 Procalcitonin 0.32 NG/ML (0.19-0.49) 05/22/18 04:30 Thyroxine (T4) 6.49 ug/dl (5.5-11.0) 05/13/18 06:00 TSH 3rd Generation 0.14 mIU/ML (0.46-4.68) L 05/13/18 06:00 Arterial Blood Potassium 3.5 mmol/L (3.6-5.2) L 05/31/18 04:00 Venous Blood Potassium 3.5 mmol/L (3.6-5.2) L 05/12/18 08:20 Urine Color Yellow (YELLOW) 05/24/18 09:35 Urine Clarity Slighty-cloudy (Clear) 05/24/18 09:35 Urine pH 6.0 (5.0-8.0) 05/24/18 09:35 Ur Specific [place] 1.023 (1.003-1.030) 05/24/18 09:35 Urine Protein 100 mg/dL (NEGATIVE) 05/24/18 09:35 Urine Glucose (UA) 50 mg/dL (NEGATIVE) 05/24/18 09:35 Urine Ketones Trace mg/dL (NEGATIVE) 05/24/18 09:35 Urine Blood Moderate (NEGATIVE) 05/24/18 09:35 Urine Nitrate Negative (NEGATIVE) 05/24/18 09:35 Urine Bilirubin Negative (NEGATIVE) 05/24/18 09:35 Urine Urobilinogen 1.0 mg/dL (0.2-1.0) 05/24/18 09:35 Ur Leukocyte Esterase Neg Wendy/uL (Negative) 05/24/18 09:35 Urine RBC (Auto) 46 /hpf (0-3) H 05/24/18 09:35 Urine WBC Clumps (Auto) Many /hpf (NONE) H 05/12/18 08:40 Urine Microscopic WBC 4 /hpf (0-5) 05/24/18 09:35 Ur Squamous Epith Cells < 1 /hpf (0-5) 05/24/18 09:35 Amorphous Sediment Few /ul (<OCC) H 05/12/18 08:40 Urine Bacteria Rare (<OCC) 05/24/18 09:35 Hyaline Casts 3-5 /hpf (0-2) H 05/24/18 09:35 Gentamicin Trough < 0.6 ug/mL (0.0-0.9) 05/17/18 09:07 Vancomycin Trough 13.9 ug/mL (5.0-10.0) H 06/03/18 04:50 Influenza Typ A,B (EIA) Negative for flu a/b (NEGATIVE) 05/21/18 16:49 Ur L.pneumophila Ag Negative (NEGATIVE) 05/12/18 10:52 Mycoplasma pneumon IgM Negative (NEGATIVE) 05/12/18 21:20 Blood Type A NEGATIVE 06/10/18 04:45 Blood Type Confirm A NEGATIVE 06/10/18 07:10 Antibody Screen Negative 06/10/18 04:45 BBK History Checked No verified bt 06/10/18 04:45 Discharge Exam - Head Exam Head Exam: NORMAL INSPECTION Discharge Plan - Follow Up Plan Condition: GUARDED Disposition: NURSING HOME [facility] Instructions: Urinary Tract Infection, Adult (DC) Referrals: Jatin Navarro MD [Staff Provider] - Dennis Gary MD [Medical Doctor] - Ramiro Hernández MD [Staff Provider] -
--- NOTE | 2018-06-29 08:12 | OP ---
PROCEDURE DATE: 06/10/2018 PREOPERATIVE DIAGNOSES: 1. Failure to thrive. 2. Respiratory failure. POSTOPERATIVE DIAGNOSES: 1. Failure to thrive. 2. Respiratory failure. SURGERIES: 1. Percutaneous endoscopic gastrostomy. 2. Tracheostomy. SURGEON: Amos Keita MD ANESTHESIA: General endotracheal. DESCRIPTION OF PROCEDURE: The patient was brought to the operating room and placed on the operating table in the supine position. After smooth induction of general endotracheal anesthesia, Venodyne boots were placed on both legs and prophylactic IV antibiotics were given. The abdomen was prepped and draped in the usual sterile fashion. The adult gastroscope was inserted and adequately lubricated through the oropharynx and advanced without difficulty through the esophagus into the stomach. Then, the transillumination was performed after having prepped and draped the epigastric area and the area overlying the stump. The location where the abdominal wall was transilluminated was injected with local anesthetic and incised with a #11 blade. An Angiocath was inserted through the abdominal wall and the gastric wall into the stomach. Through the Angiocath, a guidewire was inserted and grasped with a snare and brought by retrieving the gastroscope through the mouth. The PEG was attached to the guidewire and pulled back though the oropharynx, esophagus and the stomach and secured in place. The position of the PEG was confirmed by re-performing an upper endoscopy and showing that it was in the right location. The air was aspirated and the gastroscope was removed and the PEG was secured into position with a flange. The tracheostomy was performed by prepping and draping the anterior neck area in the usual sterile fashion. The skin was infiltrated with local anesthetic in the low anterior area of the neck and was incised in the horizontal fashion using a #15 blade. The incision was brought down to the subcutaneous tissue using Bovie electrocautery. The muscle platysma was incised, and the dissection continued the vascular line between the strap muscles all the way until the fascia was identified. The trachea was freed from surrounding tissues between the second and the fourth bronchial rings and UR-6 needle with 0 Vicryl stitch was passed through the lateral aspect of the trachea level and a #15 blade was used to perform a trapdoor incision. The endotracheal tube was gradually pulled back by the anesthesiologist until the trachea was accessible and the #8 Shiley catheter was inserted. The obturator was removed and the cannula was inserted and the tracheostomy was connected with the ventilator ensuring adequate tidal volumes and CO2 return. The tracheostomy tube was secured and with 4-0 and 2-0 silk stitches through the skin, essentially securing the frame of the tracheostomy tube to the neck skin. The harness was placed around the neck in order to make sure better security of the tracheostomy tube. At the end of the surgery, the counts of the instrument, gauze and needles were correct x2. The patient tolerated the surgery well and was transferred in stable condition to the recovery room. Amos Keita MD
== END 2018-06-23 15:00 | DRG 4 ==
LOC: H.ER 07:31 → H.ERHOLD 10:52 → H.MEDSURG1 12:44 → H.TEL 05-21 18:52 → H.ICU/CCU 05-24 08:36 → H.TEL 06-19 04:44
PROVIDERS: ADMIT Internal Medicine Pulmonary Disease; ATTEND Internal Medicine Pulmonary Disease
PROC: 5A1955Z Respiratory Ventilation, Greater than 96 Consecutive Hours (ICD-10-PCS; 2018-05-24)
PROC: 0BH17EZ Insertion of Endotracheal Airway into Trachea, Via Natural or Artificial Opening (ICD-10-PCS; 2018-05-24)
PROC: 0BC68ZZ Extirpation of Matter from Right Lower Lobe Bronchus, Via Natural or Artificial Opening Endoscopic (ICD-10-PCS; 2018-05-28)
PROC: 0BC88ZZ Extirpation of Matter from Left Upper Lobe Bronchus, Via Natural or Artificial Opening Endoscopic (ICD-10-PCS; 2018-05-28)
PROC: 0BC58ZZ Extirpation of Matter from Right Middle Lobe Bronchus, Via Natural or Artificial Opening Endoscopic (ICD-10-PCS; 2018-05-28)
PROC: 0BC38ZZ Extirpation of Matter from Right Main Bronchus, Via Natural or Artificial Opening Endoscopic (ICD-10-PCS; 2018-05-28)
PROC: 0DH64UZ Insertion of Feeding Device into Stomach, Percutaneous Endoscopic Approach (ICD-10-PCS; 2018-06-10)
PROC: 3E0G76Z Introduction of Nutritional Substance into Upper GI, Via Natural or Artificial Opening (ICD-10-PCS; 2018-06-10)
PROC: 0DH63UZ Insertion of Feeding Device into Stomach, Percutaneous Approach (ICD-10-PCS; 2018-06-10)
PROC: 0B110F4 Bypass Trachea to Cutaneous with Tracheostomy Device, Open Approach (ICD-10-PCS; principal; 2018-06-10 07:45)
DX: A41.51 Sepsis due to Escherichia coli [E. coli] (principal); J69.0 Pneumonitis due to inhalation of food and vomit; J96.21 Acute and chronic respiratory failure with hypoxia; G93.41 Metabolic encephalopathy; J16.8 Pneumonia due to other specified infectious organisms; R65.21 Severe sepsis with septic shock; N39.0 Urinary tract infection, site not specified; E87.1 Hypo-osmolality and hyponatremia; J98.11 Atelectasis; E86.0 Dehydration; I48.0 Paroxysmal atrial fibrillation; D63.8 Anemia in other chronic diseases classified elsewhere; F03.90 Unspecified dementia, unspecified severity, without behavioral disturbance, psychotic disturbance, mood disturbance, and anxiety; L89.152 Pressure ulcer of sacral region, stage 2; E11.40 Type 2 diabetes mellitus with diabetic neuropathy, unspecified; R13.10 Dysphagia, unspecified; Y95 Nosocomial condition; I10 Essential (primary) hypertension; K22.8 Other specified diseases of esophagus; I51.7 Cardiomegaly; R32 Unspecified urinary incontinence; Z51.5 Encounter for palliative care; Z66 Do not resuscitate; Z74.01 Bed confinement status; Z87.440 Personal history of urinary (tract) infections; Z87.01 Personal history of pneumonia (recurrent); Z79.83 Long term (current) use of bisphosphonates; Z88.1 Allergy status to other antibiotic agents; Z88.0 Allergy status to penicillin